=== PATIENT | female | born 1965 | race Caucasian/White ===

== ENCOUNTER 2016-08-13 18:30 | Emergency (ER) | payer OTHER ==
[~2016-08-13] VITALS: Ht 162.6 cm; Wt 104.8 kg
[~2016-08-13 18:30] MED LIST: ALBU1AER9 INH; CLX/20 PO; GABA800T PO; GABA800T2 PO; HMLI SC; HYDR-3983 PO; IBUP-1428 PO; INSDGI SC; IPRASOL4 INH; LEVO1TAB PO; OXGN; OXYC-409 PO; OXYC20TA50 PO; ROSU5TAB PO
[2016-08-13 18:35] VITALS: TEMP 36.8; Ht 162.6 cm; Wt 104.8 kg
--- NOTE | 2016-08-13 19:03 | EMERGENCY ROOM VISIT NOTE ---
History Report prepared by Annmarie: aTy Pittman Under the Supervision of: Dr. Cassius Schroeder M.D. First contact with patient: 18:46 Chief Complaint: ABDOMINAL PAIN Stated Complaint: ABD SWELLING History of Present Illness The patient is a 50 year old female who presents to the Emergency Room with complaints of persistent abdominal swelling for the past several weeks. She denies abdominal pain. The patient was seen at [place] [facility] yesterday where she had a CT scan. She was referred to the ED by her PCP. The patient's BSG has been running high recently. She has not been eating well. She denies urinary symptoms. Her bowels have been moving okay She is not on any blood thinners. The patient is s/p hysterectomy and herniorrhaphy. She has a nervous system stimulator implant. She has a history of incarcerated hernia. The patient takes Lantus. She is allergic to IV contrast. She is not a drinker. Source of History: patient, spouse/significant other Onset: several weeks ago Position: abdomen Quality: other (swelling) Timing: other (persistent) Associated Symptoms: No abdominal pain, No urinary symptoms Review of Systems See HPI for pertinent positives & negatives. A total of 10 systems reviewed and were otherwise negative. Past Medical & Surgical Medical Problems: (1) Benign essential hypertension (2) Chronic low back pain (3) Degenerative disc disease (4) Depression (5) Diabetes mellitus type 2 (6) Fibromyalgia (7) Gastroesophageal reflux disease (8) Hyperlipidemia (9) Hypothyroidism Old medical records were reviewed. Nurse's notes were reviewed and I agree with. Social History Smoking Status: Current Every Day Smoker Drug Use: none Marital Status: Housing Status: lives with family Occupation Status: employed Current/Historical Medications Scheduled Aspirin (Aspirin Ec), 81 MG PO DAILY Cholecalciferol (Vitamin D3), 1 TAB PO DAILY Citalopram (Citalopram Hydrobromide), 40 MG PO DAILYBD Clonidine HCl (Clonidine HCl), 0.1 MG PO BID Desloratadine (Desloratadine), 5 MG PO DAILY Dulaglutide (Trulicity), 1.5 MG SQ WK Fluticasone Propionate (Fluticasone Propionate), 2 SPRAYS RUBÉN DAILY Gabapentin (Gabapentin), 800 MG PO TID Hydrocodone/Acetaminophen ([place] 10/325 Tab), 1 TAB PO TID Insulin Glargine (Lantus Solostar), 52 UNITS SQ QPM Insulin Lispro (Humalog), UNITS SC AC Levothyroxine Sodium (Synthroid), 125 MCG PO DAILY Meloxicam (Meloxicam), 15 MG PO DAILY Metformin HCl (Metformin HCl ER), 500 MG PO TID Oxycodone HCl (Oxycodone HCl ER), 10 MG PO BID Oxycodone Hcl (Oxycontin), 20 MG PO Q8 Oxygen (Oxygen), 2 LITER NA PRN Oyster Shell (Calcium), 1 TAB PO BID [juice plus], 1 PKT PO DAILY Scheduled PRN Epinephrine (Epipen), 0.3 MG IM UD PRN Ipratropium-Albuterol (Duoneb), 1 TREATMENT INH QID PRN for SOB/Wheezing Ondansetron Hcl (Zofran), 4 MG PO Q8 PRN for Nausea Ranitidine HCl (Ranitidine HCl), 150 MG PO BID PRN for acid reflux [Proair Hfa], 2 PUFF INH QID PRN for SOB/Wheezing Allergies Coded Allergies: Shellfish (Verified Allergy, Severe, ANAPHYLAXIS, 08/13/16) Egg (Verified Allergy, Unknown, UNKNOWN, 10/31/13) Erythromycin (Unverified Allergy, Unknown, UNKNOWN, 10/31/13) Iodinated Contrast Media (Verified Allergy, Unknown, ., 10/31/13) Omeprazole (Unverified Allergy, Unknown, UNKNOWN, 10/31/13) Uncoded Allergies: PEANUT JABARI DUST (Allergy, Intermediate, LIPS SWELL, 08/13/16) Physical Exam Vital Signs Date Time Temp Pulse Resp B/P Pulse Ox O2 Delivery O2 Flow Rate FiO2 08/13/16 21:06 85 18 135/78 96 Room Air 08/13/16 18:35 36.8 105 20 161/101 96 Room Air Physical Exam General: Non ill-appearing middle aged female in no acute distress, breathing comfortably on room air. Normal speech HEENT: Normal cephalic atraumatic. Pupils are equal round and reactive to light. Sclerae anicteric. Extraocular movements are intact. Oropharynx is pink with moist mucous membranes. No swelling of the mouth lips or tongue. Neck: Supple with a midline trachea. No meningeal signs or stiffness, no JVD or bruits. No Stridor. Chest: Clear to auscultation bilaterally. No wheezes or rhonchi. No increased work of breathing. Heart: regular rate and rhythm. Abdomen: Nontender. Mild fullness over the liver with palpation. Ventral hernia with coughing, no redness warmth or tenderness. Lower abdominal scar from previous surgery. Extremities: No cyanosis clubbing or edema. No calf tenderness or assymetry Spine/Back. Non tender to palpation. No CVA tenderness Skin: Good turgor without rashes. Neurologic exam: Cranial nerves two through 12 are intact. Motor and sensation are intact and symmetrical throughout. Medical Decision & Procedures Laboratory Results 08/13/16 19:15 Red Blood Count 5.11, Mean Corpuscular Volume 88.3, Mean Corpuscular Hemoglobin 30.1, Mean Corpuscular Hemoglobin Concent 34.1, Mean Platelet Volume 12.2, Neutrophils (%) (Auto) 57.2, Lymphocytes (%) (Auto) 35.6, Monocytes (%) (Auto) 4.9, Eosinophils (%) (Auto) 1.9, Basophils (%) (Auto) 0.2, Neutrophils # (Auto) 6.15, Lymphocytes # (Auto) 3.82, Monocytes # (Auto) 0.53, Eosinophils # (Auto) 0.20, Basophils # (Auto) 0.02 08/13/16 19:15 Test 08/13/16 19:15 08/13/16 20:35 White Blood Count 10.74 K/uL (4.8-10.8) Red Blood Count 5.11 M/uL (4.2-5.4) Hemoglobin 15.4 g/dL (12.0-16.0) Hematocrit 45.1 % (37-47) Mean Corpuscular Volume 88.3 fL (80-100) Mean Corpuscular Hemoglobin 30.1 pg (25-34) Mean Corpuscular Hemoglobin Concent 34.1 g/dl (32-36) Platelet Count 200 K/uL (130-400) Mean Platelet Volume 12.2 fL (7.4-10.4) Neutrophils (%) (Auto) 57.2 % Lymphocytes (%) (Auto) 35.6 % Monocytes (%) (Auto) 4.9 % Eosinophils (%) (Auto) 1.9 % Basophils (%) (Auto) 0.2 % Neutrophils # (Auto) 6.15 K/uL (1.4-6.5) Lymphocytes # (Auto) 3.82 K/uL (1.2-3.4) Monocytes # (Auto) 0.53 K/uL (0.11-0.59) Eosinophils # (Auto) 0.20 K/uL (0-0.5) Basophils # (Auto) 0.02 K/uL (0-0.2) RDW Standard Deviation 44.1 fL (36.4-46.3) RDW Coefficient of Variation 13.5 % (11.5-14.5) Immature Granulocyte % (Auto) 0.2 % Immature Granulocyte # (Auto) 0.02 K/uL (0.00-0.02) Anion Gap 8.0 mmol/L (3-11) Est Creatinine Clear Calc Drug Dose 93.3 ml/min Estimated GFR () 91.3 Estimated GFR (Non- 78.8 BUN/Creatinine Ratio 12.5 (10-20) Calcium Level 8.9 mg/dl (8.5-10.1) Total Bilirubin 0.4 mg/dl (0.2-1) Direct Bilirubin 0.1 mg/dl (0-0.2) Aspartate Amino Transf (AST/SGOT) 31 U/L (15-37) Alanine Aminotransferase (ALT/SGPT) 53 U/L (12-78) Alkaline Phosphatase 116 U/L (45-117) Total Protein 7.9 gm/dl (6.4-8.2) Albumin 3.8 gm/dl (3.4-5.0) Lipase 317 U/L (73-393) Human Chorionic Gonadotropin, Qual NEG (NEG) Urine Color YELLOW Urine Appearance CLEAR (CLEAR) Urine pH 5.0 (4.5-7.5) Urine Specific [place] 1.036 (1.000-1.030) Urine Protein NEG (NEG) Urine Glucose (UA) 3+ (NEG) Urine Ketones TRACE (NEG) Urine Occult Blood NEG (NEG) Urine Nitrite NEG (NEG) Urine Bilirubin NEG (NEG) Urine Urobilinogen NEG (NEG) Urine Leukocyte Esterase NEG (NEG) Laboratory studies as stated above per my review. ECG Indication: chest pain Rate (beats per minute): 79 Rhythm: normal sinus Findings: no acute ischemic change, no ectopy Comparison ECG Date: 2013 Change: no significant change ED Course 1849: Past medical records reviewed. The patient was evaluated in room B4b, and a complete history and physical examination were performed. 2043: Discussed the case with Dr. Vuong, Gastroenterology. The patient can follow up as an outpatient. 2049: Updated the patient. 2054: The patient feels okay but now complains of heartburn. EKG will be obtained. 2119: Upon reevaluation, the patient is doing well. I discussed the results and treatment plan with her. She verbalized agreement of the treatment plan. The patient was discharged home. Medical Decision Differential diagnosis includes DKA, infection, electrolyte or metabolic abnormality, liver disease. Medication reconciliation: I have personally looked at the patient's medication list on the computer This patient comes in as described above. She feels like she's had abdominal bloating. She was seen yesterday and [facility] and had a CAT scan of her abdomen and it showed hepatomegaly with nodular surface the liver suggestive of fibrofatty process. They did recommend nonemergent MRI. The patient's doctor sent her to the hospital for MRI however she cannot have it because she has an neurostimulator. Is also noted that her blood sugar was up earlier at 577. She says she feels fine except for having some bloating and occasional abdominal pain. She's had no vomiting or fever or chills. On exam, she appears in no distress she does have some fullness in the right upper abdomen. There is no evidence of hernia incarceration. She has no fever or white count to suggest infection. She's has normal electrolytes. Her liver functions and lipase are normal. I do think she needs further workup but unfortunately can't have an MRI and can have a CAT scan with contrast that she is allergic to the dye. I did discuss the case with Dr. vuong, the on-call GI specialist and he feels she can follow-up with the [facility] GI team within the next several days for recheck and further reevaluation. At this point, the patient's blood sugar is minimally elevated in the 200s and she has no evidence of DKA. She feels good and like to go home she started having a little bit of heartburn as she did not eat and I checked an EKG was unremarkable. She feels good and would will be discharged to home. Consults Time Called: 2029 Consulting Physician: Dr. Vuong, Gastroenterology Returned Call: 2043 The patient can follow up as an outpatient. Impression Primary Impression: Epigastric abdominal pain Additional Impression: Hyperglycemia Scribe Attestation The scribe's documentation has been prepared under my direction and personally reviewed by me in its entirety. I confirm that the note above accurately reflects all work, treatment, procedures, and medical decision making performed by me. Departure Information Dispostion Home / Self-Care Referrals Irma Fry M.D. (PCP) Forms Call Back Authorization, HOME CARE DOCUMENTATION FORM, IMPORTANT VISIT INFORMATION Patient Instructions [facility] Additional Instructions Rest Drink plenty of fluids. Return if: Increasing pain, fever or chills, worsening symptoms, any new problems or concerns. You will need a follow-up with the [facility] GI doctor this week for recheck. You will need further work-up Check and monitor your blood sugar frequently and record it Problem Qualifiers
[2016-08-13 19:21] LABS: BASO % 0.2 %; BASO ABS # 0.02 K/uL (0-0.2); COMPLETE YES; EOS % 1.9 %; HEMATOCRIT 45.1 % (37-47); IG% 0.2 %; LYMPH % 35.6 %; LYMPH ABS # 3.82 K/uL (1.2-3.4); MEAN CELL VOLUME 88.3 fL (80-100); MEAN CORPUSCULAR HEMOGLOBIN 30.1 pg (25-34); MEAN CORPUSCULAR HGB CONC 34.1 g/dl (32-36); MEAN PLATELET VOLUME 12.2 fL (7.4-10.4); MONO % 4.9 %; NEUT % 57.2 %; PLATELET COUNT 200 K/uL (130-400); RED BLOOD COUNT 5.11 M/uL (4.2-5.4); WHITE BLOOD COUNT 10.74 K/uL (4.8-10.8)
[2016-08-13 19:44] LABS: BUN/CREATININE RATIO 12.5 (10-20); CALCIUM 8.9 mg/dl (8.5-10.1); CREATININE 0.87 mg/dl (0.60-1.20); POTASSIUM 3.7 mmol/L (3.5-5.1)
[2016-08-13 19:48] LABS: PREG INTERNAL NEGATIVE QC NEG CLEAR BACKGROUND; PREG INTERNAL POSITIVE QC POS CONTROL LINE
[2016-08-13] MEDS ORDERED: FLNIN/ NAE (20:01)
[2016-08-13] MEDS ORDERED: CTP1 PO (20:01)
[2016-08-13] MEDS ORDERED: TRAZ-120 (20:01)
[2016-08-13] MEDS ORDERED: PROAIR HFA INH (20:20)
[2016-08-13] MEDS ORDERED: GLCSR/500 PO (20:20)
[2016-08-13] MEDS ORDERED: SYN125 PO (20:20)
[2016-08-13] MEDS ORDERED: DULA0.5I SQ (20:20)
[2016-08-13] MEDS ORDERED: MELO15TA4 PO (20:20)
[2016-08-13] MEDS ORDERED: IPRASOL4 INH (20:20)
[2016-08-13] MEDS ORDERED: ASPI81TA28 PO (20:20)
[2016-08-13] MEDS ORDERED: SPRIN/30 INH (20:27)
[2016-08-13] MEDS ORDERED: MISCCAP80 PO (20:27)
[2016-08-13] MEDS ORDERED: CHOL20007 PO (20:27)
[2016-08-13 20:47] LABS: URINE APPEARANCE CLEAR (CLEAR); URINE BILIRUBIN NEG (NEG); URINE COLOR YELLOW; URINE NITRITE NEG (NEG); URINE SPECIFIC GRAVITY 1.036 (1.000-1.030); UROBILINOGEN NEG (NEG)
[2016-08-13 20:48] LABS: MANUAL MICROSCOPIC REQUIRED? NO; REVIEW REQ? NO
[2016-08-13 21:06] VITALS: BP 135/78; PULSE 85; O2SAT 96
[2016-10-27] MEDS ORDERED: SUCR1TAB29 PO (15:15)
[2016-10-27] MEDS ORDERED: INSU100I SC (15:15)
[2016-10-30] MEDS ORDERED: ASPEC81 PO (17:38)
[2016-12-10] MEDS ORDERED: juice plus PO (03:16)
[2016-12-10] MEDS ORDERED: ALBU18002 INH (10:12)
[2016-12-10] MEDS ORDERED: POTA10CA28 PO (10:12)
[2016-12-10] MEDS ORDERED: SPRIN/30 INH (15:17)
[2016-12-10] MEDS ORDERED: ROSU5TAB PO (15:17)
[2016-12-10] MEDS ORDERED: EPP3/2 IM (17:13)
[2016-12-10] MEDS ORDERED: OXYC-738 PO (20:01)
== END 2016-08-13 21:32 | disposition home or self-care (01) ==
LOC: C.EDB 18:31
DX: R10.13 Epigastric pain (principal); E11.65 Type 2 diabetes mellitus with hyperglycemia; I10 Essential (primary) hypertension; E78.5 Hyperlipidemia, unspecified; E03.9 Hypothyroidism, unspecified; K21.9 Gastro-esophageal reflux disease without esophagitis; G89.29 Other chronic pain; F17.200 Nicotine dependence, unspecified, uncomplicated; Z79.82 Long term (current) use of aspirin; Z79.4 Long term (current) use of insulin; Z79.899 Other long term (current) drug therapy; Z91.018 Allergy to other foods; Z88.8 Allergy status to other drugs, medicaments and biological substances; Z91.041 Radiographic dye allergy status

== ENCOUNTER 2016-09-05 06:19 | Day surgery (SDC) | payer OTHER ==
[2016-08-20 10:12] VITALS: BMI 40.0
[~2016-09-05] VITALS: Ht 162.6 cm; Wt 105.0 kg
[~2016-09-05 06:19] MED LIST changes: -ALBU1AER9 INH; +ASPI81TA28 PO; +CHOL20007 PO; -CLX/20 PO; +DULA0.5I SQ; +FLNIN/ NAE; -GABA800T PO; -GABA800T2 PO; +GLCSR/500 PO; -HMLI SC; -HYDR-3983 PO; -IBUP-1428 PO; -INSDGI SC; +LACTATED RINGER'S 1000ML 1,000 ML IV SCH; -LEVO1TAB PO; +MELO15TA4 PO; -OXYC-409 PO; -OXYC20TA50 PO; -ROSU5TAB PO; +SODIUM CHLORIDE 0.9% 500ML 500 ML IV ONE; +SYN125 PO
[2016-09-05] MEDS ORDERED: LEVO150T9 PO (06:59)
[2016-09-05 07:03] VITALS: BP 140/82; PULSE 74; TEMP 36.7; O2SAT 96; Ht 162.6 cm; Wt 105.0 kg
[2016-09-05] MEDS ORDERED: Humalog SC (07:03)
[2016-09-05] MEDS ORDERED: HMLI7525 SC (07:20)
[2016-09-05] MEDS ORDERED: FENTANYL CITRATE INJ 50 MCG/1 ML 2 ML VIAL ONE (07:21)
[2016-09-05] MEDS ORDERED: MIDAZOLAM HCL 1 MG/ML 2ML VIAL ONE (07:21)
[2016-09-05] MEDS ORDERED: KETAMINE HCL INJ 50 MG/ML 10 ML VIAL ONE (07:43)
[2016-09-05] MEDS ORDERED: PROPOFOL IV EMULSION 10 MG/ML 20 ML VIAL IV ONE ×2 (07:44→08:36)
--- NOTE | 2016-09-05 07:44 | Progress Note ---
Progress Note Date of Service Sep 05, 2016. Progress Note [facility] [address] [place] [address] Endoscopy History & Physical Patient Name: Socrates Judd Unit Number: [id number] Date of : 1965 Patient Status: Registered Surgical Day Care Attending Doctor: Arjun Martinez MD History & Physical - GI History & Physical Date of Service: Sep 05, 2016. Chief Complaint: Referring Physician: History of Present Illness Socrates Judd is a 50 year old female who went to [facility] ED on 08/12/16 w c/o acute abdominal distension. Labs unremarkable mildly elevated transaminases <50 ALT/AST, UA, UPT all normal. She had KUB which showed moderate amt of stool burden. CT abd/pelvis w/o contrast w showed: LIVER: Mild hepatomegaly. Diffuse heterogeneous attenuation of the liver with subtle nodular surface, which is likely due to cirrhosis and fibrofatty process. Difficult to exclude other infiltrative process and recommend MRI abdomen without and with intravenous contrast for further evaluation. Mildly enlarged cardiophrenic lymph nodes are likely reactive to liver process. BILE DUCTS: No intra or extrahepatic biliary duct dilatation. GALLBLADDER: Cholecystectomy. PANCREAS: Mild lipomatosis of head of the pancreas. No calcification or pancreatic duct dilatation. SPLEEN: Normal size spleen. Small splenule. No gross focal lesion. ADRENALS: Unremarkable. KIDNEYS/URETERS: Unremarkable. BLADDER: Nondistended bladder limiting evaluation. BOWEL: Unremarkable stomach, duodenum and small bowel. Appendectomy. Moderate retained colonic stools. LYMPH NODES: Enlarged portacaval and periportal lymph nodes likely reactive. VESSELS: Circumaortic left renal vein. Minimal atherosclerotic calcifications are noted within the infrarenal abdominal aorta. REPRODUCTIVE ORGANS: Hysterectomy. No adnexal mass. PERITONEUM/RETROPERITONEUM: No ascites or pneumoperitoneum. ABDOMINAL WALL/SOFT TISSUES: Mesh is noted on the inner aspect of the right anterior and mid abdominal wall consistent with prior hernia repair. Diastases of the rectus with protrusion of the mesh. No recurrent ventral hernia. BONES: Minimal lumbar scoliosis. Left L4 laminectomy. Degenerative changes of spine. Multilevel degenerative disc disease. Advanced degenerative disc disease at L3-L4, L4-L5 and L5-S1. Moderate posterior disc osteophyte complex, prominent at the L5-S1 level causing mild to moderate spinal canal stenosis. Presenting for EGD/EUS for further work up, she does have a family history of pancreatic cancer in her mother. Results for SOCRATES JUDD ( ) as of 09/04/2016 15:32 Ref. Range 08/20/2016 14:50 BUN Latest Ref Range: 6 - 20 mg/dL 11 CREATININE Latest Ref Range: 0.5 - 1.0 mg/dL 0.7 E GLOM FILT RATE Latest Ref Range: >60 >60.0 SODIUM Latest Ref Range: 135 - 146 mmol/L 137 POTASSIUM Latest Ref Range: 3.5 - 5.1 mmol/L 4.6 CHLORIDE Latest Ref Range: 98 - 107 mmol/L 95 (L) CO2 Latest Ref Range: 22 - 32 mmol/L 26 GLUCOSE Latest Ref Range: 70 - 120 mg/dL 306 (H) CALCIUM Latest Ref Range: 8.4 - 10.2 mg/dL 9.6 ANION GAP Latest Ref Range: 7 - 15 mmol/L 16 (H) ALBUMIN Latest Ref Range: 3.8 - 5.0 g/dL 4.3 ALKALINE PHOSPHATASE Latest Ref Range: 0 - 153 U/L 106 ALT Latest Ref Range: 10 - 35 U/L 37 (H) AST Latest Ref Range: 10 - 35 U/L 41 (H) BILIRUBIN Latest Ref Range: 0 - 1.2 mg/dL 0.6 Past Surgical History Hx Abdominal Surgery: No (LAP CHOLEY, OPEN APPENDECTOMY, COMPLETE HYSTERECTOMY) Hx Post-Op Nausea and Vomiting: No Hx Cancer Surgery: Yes (B/L BREAST LUMPECTOMY (BENIGN)) Hx Thoracic Surgery: No Hx Orthopedic: Yes (BACK SURGERY X2) Hx Urinary Tract Surgery: No Social History Smoking Status: Current Every Day Smoker Hx Substance Use: No Hx Alcohol Use: No Allergies Coded Allergies: Shellfish (Verified Allergy, Severe, ANAPHYLAXIS, 09/05/16) Iodinated Contrast Media (Verified Allergy, Unknown, ANAPHYLAXIS, 09/05/16) Omeprazole (Verified Allergy, Unknown, ANAPHYLAXIS, 09/05/16) Peanut (Verified Allergy, Unknown, LIPS SWELL FROM PEANUT SHELL DUST, ) Egg (Verified Adverse Reaction, Mild, DYSPEPSIA, N/V, 09/05/16) Erythromycin (Verified Adverse Reaction, Unknown, GI UPSET, 09/05/16) Current Medications Reported Home Medications Medications Dose Route/Sig Max Daily Dose Days Date Category Dose Instructions Proair Respiclick (Albuterol Sulfate) 108 Mcg/Act Aer 2 Puff INH Q4 PRN 08/20/16 Reported Micro-K Ext Rel (Potassium Chloride) 10 Meq Capcr 10 Meq PO DAILY 08/20/16 Reported Zofran (Ondansetron HCl) 4 Mg Tab 4 Mg PO Q8 PRN 08/13/16 Reported Calcium (Oyster Shell) 500 Mg Tab 1 Tab PO BID 08/13/16 Reported Vitamin D3 (Cholecalciferol) 2,000 Unit Tab 1 Tab PO DAILY 90 08/13/16 Reported Citalopram Hydrobromide (Citalopram) 40 Mg Tab 40 Mg PO DAILYBD 08/13/16 Reported Duoneb (Ipratropium-Albuterol) 3 Ml Nebu 1 Treatment INH QID PRN 08/13/16 Reported Metformin HCl ER (Metformin HCl) 500 Mg Tabcr 500 Mg PO TID 08/13/16 Reported Gabapentin 800 Mg Tab 800 Mg PO TID 08/13/16 Reported Meloxicam 15 Mg Tab 15 Mg PO DAILY 08/13/16 Reported Trulicity (Dulaglutide) 1.5 Mg/0.5 Ml Inj 1.5 Mg SQ WK 08/13/16 Reported Lantus Solostar (Insulin Glargine) 100 Unit/Ml Inj 52 Units SQ QPM 08/13/16 Reported Synthroid (Levothyroxine Sodium) 125 Mcg Tab 125 Mcg PO DAILY 08/13/16 Reported CAN ONLY TAKE SYNTHRIOD [place] 10/325 Tab (Acetaminophen/Hydrocodone Bitart) 1 Tab Tab 1 Tab PO TID 08/13/16 Reported Aspirin Ec (Aspirin) 81 Mg Tab 81 Mg PO DAILY 08/13/16 Reported Ranitidine HCl 150 Mg Tab 150 Mg PO BID PRN 08/13/16 Reported Desloratadine 5 Mg Tab 5 Mg PO DAILY 08/13/16 Reported Fluticasone Propionate 120 Sprays/6000 Mcg Inha 2 Sprays RUBÉN DAILY 08/13/16 Reported Oxycodone HCl ER (Oxycodone HCl) 10 Mg Tab 10 Mg PO BID 08/13/16 Reported [juice plus] 1 Pkt PO DAILY 10/31/13 Reported orchard + garden blends Oxygen Gas 2 Liter NA PRN 10/31/13 Reported use during all periods of sleep Epipen (Epinephrine) 0.3 Mg/0.3 Ml Inj 0.3 Mg IM UD PRN 10/25/12 Reported INJECT INTO THIGH NEEDED FOR SEVERE ALLERGIC REACTION. Vital Signs Weight (Kilograms): 105 Height (Feet): 5 Height (Inches): 4 Physical Exam General Appearance: WD/WN, + obese Respiratory/Chest: Respiratory effort: no dyspnea Auscultation: breath sounds normal Cardiovascular: Apical Impulse: not displaced Heart Auscultation: RRR, normal S1, normal S2 Abdomen: Bowel Sounds: normal Inspection & Palpation: soft, non-distended Assessment and Plan Plan for EGD/EUS ? pancreatic abnormalities including family history of pancreatic cancer
[2016-09-05] MEDS ORDERED: ATROPINE SULFATE 0.1 MG/ML 5ML SYR IV PRN (07:45)
[2016-09-05] MEDS ORDERED: LABETALOL HCL IV 5 MG/ML 20ML IV PRN (07:45)
[2016-09-05] MEDS ORDERED: ONDANSETRON INJ 2 MG/ML 2 ML VIAL IV PRN (07:45)
[2016-09-05] MEDS ORDERED: FENTANYL CITRATE INJ 50 MCG/1 ML 2 ML VIAL IV PRN (07:45)
[2016-09-05] MEDS ORDERED: ONDANSETRON INJ 2 MG/ML 2 ML VIAL ONE (08:38)
--- NOTE | 2016-09-05 08:44 | GI REPORT ---
Procedure Date: 09/05/2016 7:58 AM Procedure: Upper GI endoscopy Indications: Epigastric abdominal pain Medicines: General [id number] Complications: No immediate complications. Estimated blood loss: None. Estimated Blood Loss: Estimated blood loss: none. Procedure: Pre-Anesthesia Assessment: - Pre-Anesthesia Assessment: - Prior to the procedure, a History and Physical was performed, and patient medications, allergies and sensitivities were reviewed. The patient's tolerance of previous anesthesia was reviewed. Please see [employer] for complete details. - The risks and benefits of the procedure and the sedation options and risks were discussed with the patient. All questions were answered and informed consent was obtained. - Patient identification and proposed procedure were verified prior to the procedure by the physician and the nurse. The procedure was verified in the pre-procedure area in the procedure room. After obtaining informed consent, the endoscope was passed carefully and meticuously under direct vision and only advanced when the lumen was clearly identified, C02 insuflation was utilized throughout the entirity of the procedure. Throughout the procedure, the patient's blood pressure, pulse, and oxygen saturations were monitored continuously. After obtaining informed consent, the endoscope was passed under direct vision. Throughout the procedure, the patient's blood pressure, pulse, and oxygen saturations were monitored continuously. The scope was introduced through the mouth, and advanced to the third part of duodenum. The upper GI endoscopy was accomplished without difficulty. The patient tolerated the procedure well. Findings: The examined esophagus was normal. One non-bleeding superficial gastric ulcer with a clean ulcer base (Bubba Class III) was found in the gastric antrum. The lesion was 1 mm in largest dimension. Biopsies were taken with a cold forceps for Helicobacter pylori testing. Two non-bleeding linear duodenal ulcers with a clean ulcer base (Bubba Class III) were found in the duodenal bulb. Biopsies were taken with a cold forceps for histology. Impression: - Normal esophagus. - Non-bleeding gastric ulcer with a clean ulcer base (Bubba Class III). Biopsied. - Multiple non-bleeding duodenal ulcers with a clean ulcer base (Bubba Class III). Biopsied. Recommendation: - Discharge patient to home (with escort). - Return to referring physician as previously scheduled. - Use Prilosec (omeprazole) 40 mg PO BID for 2 months. - Repeat the upper endoscopy in 2 months to check healing. Arjun Martinez MD 09/05/2016 8:42:51 AM This report has been signed electronically. Note Initiated On: 09/05/2016 7:58 AM I attest to the content of the Intraoperative Record and orders documented therein, exceptions below
[2016-09-05 08:45] VITALS: BP 105/55; PULSE 79; TEMP 36.5; O2SAT 94
--- NOTE | 2016-09-05 08:47 | GI REPORT ---
Procedure Date: 09/05/2016 8:14 AM Procedure: Upper EUS Indications: Epigastric abdominal pain, family history of pancreatic cancer Medicines: General Anesthesia Complications: No immediate complications. Estimated blood loss: None. Estimated Blood Loss: Estimated blood loss: none. Procedure: Pre-Anesthesia Assessment: - Pre-Anesthesia Assessment: - Prior to the procedure, a History and Physical was performed, and patient medications, allergies and sensitivities were reviewed. The patient's tolerance of previous anesthesia was reviewed. Please see [employer] for complete details. - The risks and benefits of the procedure and the sedation options and risks were discussed with the patient. All questions were answered and informed consent was obtained. - Patient identification and proposed procedure were verified prior to the procedure by the physician and the nurse. The procedure was verified in the pre-procedure area in the procedure room. After obtaining informed consent, the endoscope was passed carefully and meticuously under direct vision and only advanced when the lumen was clearly identified, C02 insuflation was utilized throughout the entirity of the procedure. Throughout the procedure, the patient's blood pressure, pulse, and oxygen saturations were monitored continuously. After obtaining informed consent, the endoscope was passed under direct vision. Throughout the procedure, the patient's blood pressure, pulse, and oxygen saturations were monitored continuously. The Endosonoscope was introduced through the mouth, and advanced to the second part of duodenum. The upper EUS was accomplished without difficulty. The patient tolerated the procedure well. Findings: Endosonographic Finding : Pancreatic parenchymal abnormalities were noted in the entire pancreas. These consisted of diffuse echogenicity. consistent with fatty infiltration There was no sign of significant endosonographic abnormality in the common bile duct. The maximum diameter of the duct was 4 mm. No pathologic lymphadenopathy, no masses, no cysts, no calcifications, no stones, no biliary sludge, ducts of normal caliber and ducts with regular contour were identified. The gallbladder was surgically absent consistent with history of cholecystectomy. There was no sign of significant endosonographic abnormality in the ampulla. There was abnormal echogenicity in the entire examined liver. This area was hyperechoic. One benign-appearing lymph node was visualized in the gastrohepatic ligament (level 18). It measured 5 mm by 6 mm in maximal cross-sectional diameter. The node was oval, had hyperechoic foci and had poorly defined margins. There was no sign of significant endosonographic abnormality in the entire examined left adrenal gland. There was no sign of significant endosonographic abnormality involving the celiac trunk. Impression: - Pancreatic parenchymal abnormalities consisting of diffuse echogenicity were noted in the entire pancreas. - There was no sign of significant pathology in the common bile duct. - There was no sign of significant pathology in the ampulla. - There was abnormal echogenicity in the entire examined liver. This was hyperechoic. Tissue has not been obtained. However, the endosonographic appearance is consistent with fatty infiltration. - One benign lymph node was visualized in the gastrohepatic ligament (level 18). The diagnosis is benign inflammatory changes. - Endosonographic images of the left adrenal gland were unremarkable. - The celiac trunk was endosonographically normal. - No specimens collected. Recommendation: - Discharge patient to home (with escort). - Return to referring physician as previously scheduled. Arjun Martinez MD 09/05/2016 8:47:01 AM This report has been signed electronically. Note Initiated On: 09/05/2016 8:14 AM I attest to the content of the Intraoperative Record and orders documented therein, exceptions below
--- NOTE | 2016-09-05 08:49 | Discharge Instructions ---
Endoscopy Patient Instructions Date / Procedure(s) Performed Sep 05, 2016. EGD, Other (endoscopic ultrasound) Allergy Information Coded Allergies: Shellfish (Verified Allergy, Severe, ANAPHYLAXIS, 09/05/16) Iodinated Contrast Media (Verified Allergy, Unknown, ANAPHYLAXIS, 09/05/16) Omeprazole (Verified Allergy, Unknown, ANAPHYLAXIS, 09/05/16) Peanut (Verified Allergy, Unknown, LIPS SWELL FROM PEANUT SHELL DUST, ) Egg (Verified Adverse Reaction, Mild, DYSPEPSIA, N/V, 09/05/16) Erythromycin (Verified Adverse Reaction, Unknown, GI UPSET, 09/05/16) Discharge Date / Findings Sep 05, 2016. Multiple ulcers Pancreas normal Fatty liver Provider Instructions Activity Restrictions - No exercising or heavy lifting for 24 hours. - Do not drink alcohol the day of the procedure. - Do not drive a car or operate machinery until the day after the procedure. - Do not make any important decisions or sign important papers in 24 hours after the procedure. Following Day: - Return to full activity which may include returning to work/school. Diet Start your diet with liquids and light foods (jello, soup, juice, toast). Then eat your usual diet if not nauseated. Treatment For Common After Affects For mild abdominal pain, bloating, or excessive gas: - Rest - Eat lightly - Lie on right side Follow-Up Information Follow-up with as scheduled Anesthesia Information What You Should Know You have had a procedure that required some medicine to reduce anxiety and discomfort. This treatment is called moderate sedation. After receiving the treatment, you may be sleepy, but you will be able to breathe on your own. The effects of the treatment may last for several hours. Follow these instructions along with Activity/Diet recommendations noted above: * Do NOT do anything where dizziness or clumsiness would be dangerous. * Rest quietly at home today, then you can be up and about tomorrow. * Have a responsible person stay with you the rest of today. * You may have had an I.V. today. If so, you may take the dressing off later today. Recommendations Call your doctor if: * Trouble breathing * Continuous vomiting for more than 24 hours * Temperature above 101 degrees * Severe abdominal pain or bloating * Pain not relieved by pain medicine ordered * There is increased drainage or redness from any incision * A large amount of rectal bleeding greater than 2-3 tablespoons. (If you had a polyp/s removed or have hemorrhoids, a small amount of blood - from the rectum is to be expected.) * You have any unanswered questions or concerns. IN THE EVENT OF A SERIOUS EMERGENCY, GO TO THE NEAREST EMERGENCY ROOM Your discharge instructions were prepared by provider Arjun Martinez. Patient Instructions Signature Page Arely Hester Patient (or Guardian) Signature/Date: I have read and understand the instructions given to me by my caregivers. Caregiver/RN/Doctor Signature/Date: The above-named patient and/or guardian has received patient instructions on this date. + Original Patient Signature Page (only) stays with chart. Please make copy for patient.
[2016-09-05 09:15] VITALS: BP 116/68; PULSE 80; TEMP 36.5; O2SAT 97
[2016-09-05 09:30] VITALS: BP 134/74; PULSE 77; TEMP 36.2; O2SAT 97
--- NOTE | 2016-09-05 10:55 | Anesthesiology Progress Note ---
Anesthesia Post Op Note Date & Time Sep 05, 2016 at 10:56 Vital Signs Pain Intensity: 0 Vital Signs Past 12 Hours Date Time Temp Pulse Resp B/P (MAP) Pulse Ox O2 Delivery O2 Flow Rate FiO2 09/05/16 09:30 36.2 77 18 134/74 97 Room Air 09/05/16 09:15 36.5 80 18 116/68 97 Room Air 09/05/16 08:45 36.5 79 18 105/55 94 Room Air 09/05/16 07:03 36.7 74 16 140/82 (101) 96 Room Air Notes Mental Status: alert / awake / arousable, participated in evaluation Pt Amnestic to Procedure: Yes Nausea / Vomiting: adequately controlled Pain: adequately controlled Airway Patency, RR, SpO2: stable & adequate BP & HR: stable & adequate Hydration State: stable & adequate Anesthetic Complications: no major complications apparent
[2016-10-27] MEDS ORDERED: INSU100I SC (15:15)
[2016-10-27] MEDS ORDERED: SUCR1TAB29 PO (15:15)
[2016-10-30] MEDS ORDERED: ASPEC81 PO (17:38)
[2016-12-10] MEDS ORDERED: juice plus PO (03:16)
[2016-12-10] MEDS ORDERED: ALBU18002 INH (10:12)
[2016-12-10] MEDS ORDERED: POTA10CA28 PO (10:12)
[2016-12-10] MEDS ORDERED: SPRIN/30 INH (15:17)
[2016-12-10] MEDS ORDERED: ROSU5TAB PO (15:17)
[2016-12-10] MEDS ORDERED: EPP3/2 IM (17:13)
[2016-12-10] MEDS ORDERED: OXYC-738 PO (20:01)
== END 2016-09-05 09:37 | disposition home or self-care (01) ==
LOC: C.ACU 06:19
PROVIDERS: ATTEND Internal Medicine
DX: R10.13 Epigastric pain (principal); K25.9 Gastric ulcer, unspecified as acute or chronic, without hemorrhage or perforation; K26.9 Duodenal ulcer, unspecified as acute or chronic, without hemorrhage or perforation; K29.80 Duodenitis without bleeding; F17.200 Nicotine dependence, unspecified, uncomplicated; Z79.82 Long term (current) use of aspirin; Z79.4 Long term (current) use of insulin; Z79.899 Other long term (current) drug therapy; Z85.07 Personal history of malignant neoplasm of pancreas

== ENCOUNTER 2016-10-28 19:47 | Observation (INO) | payer OTHER ==
[~2016-10-28] VITALS: Ht 162.6 cm; Wt 107.6 kg
[~2016-10-28 19:47] MED LIST changes: -ASPI81TA28 PO; -DULA0.5I SQ; +INSU100I SC; -LACTATED RINGER'S 1000ML 1,000 ML IV SCH; +LEVO150T9 PO; -MELO15TA4 PO; -SODIUM CHLORIDE 0.9% 500ML 500 ML IV ONE; +SUCR1TAB29 PO; -SYN125 PO
[2016-10-28] MEDS ORDERED: SODIUM CHLORIDE 0.9% 1000ML 1,000 ML IV STA (20:01)
[2016-10-28 20:17] LABS: BASO % 0.2 %; BASO ABS # 0.02 K/uL (0-0.2); COMPLETE YES; EOS % 0.8 %; HEMATOCRIT 45.4 % (37-47); IG% 0.2 %; LYMPH ABS # 3.34 K/uL (1.2-3.4); MEAN CORPUSCULAR HEMOGLOBIN 30.8 pg (25-34); MEAN PLATELET VOLUME 12.2 fL (7.4-10.4); MONO % 4.5 %; NEUT % 63.3 %; PLATELET COUNT 214 K/uL (130-400); RED BLOOD COUNT 5.16 M/uL (4.2-5.4); WHITE BLOOD COUNT 10.76 K/uL (4.8-10.8)
--- NOTE | 2016-10-28 20:23 | DIAGNOSTIC IMAGING REPORT ---
HEAD WITHOUT CONTRAST (CT) CLINICAL HISTORY: 50 years-old Female presenting with EVALUATE WEAKNESS. TECHNIQUE: Multidetector CT imaging of the head was performed without the use of intravenous contrast. IV contrast: None. A dose lowering technique was used consistent with the principles of ALARA (as low as reasonably achievable). COMPARISON: 10/31/2013. CT DOSE (mGy.cm): The estimated cumulative dose is 720.95 mGycm. 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 Ventricles and sulci normal in size. Minimal hyperdense focus in the right basal ganglia, nonspecific and likely calcification. Remainder brain parenchyma normal. No mass effect or midline shift. No hemorrhage or acute territorial infarct. No extra-axial fluid collection. Paranasal sinuses and mastoid air cells clear. Calvarium intact. IMPRESSION: 1. No acute intracranial pathology. Electronically signed by: Abner Gentile M.D. 10/28/2016 8:22 PM Dictated Date/Time: 10/28/2016 8:18 PM
[2016-10-28 20:36] LABS: PROTHROMBIN TIME (PATIENT) 10.7 SECONDS (9.0-12.0)
[2016-10-28 20:38] LABS: ALT/SGPT 44 U/L (12-78); BLOOD UREA NITROGEN 8 mg/dl (7-18); BUN/CREATININE RATIO 7.7 (10-20); CALCIUM 9.7 mg/dl (8.5-10.1); CARBON DIOXIDE 29 mmol/L (21-32); CHLORIDE 102 mmol/L (98-107); CREATININE 0.97 mg/dl (0.60-1.20); GLUCOSE 281 mg/dl (70-99); MAGNESIUM 1.9 mg/dl (1.8-2.4); POTASSIUM 3.4 mmol/L (3.5-5.1); SODIUM 138 mmol/L (136-145)
--- NOTE | 2016-10-28 20:43 | DIAGNOSTIC IMAGING REPORT ---
CHEST ONE VIEW PORTABLE CLINICAL HISTORY: 50 years-old Female presenting with EVALUATE WEAKNESS. TECHNIQUE: Portable upright AP view of the chest was obtained. COMPARISON: 10/25/2012. FINDINGS: Spinal stimulator projects over the lower thoracic spine. Cardiomediastinal silhouette normal. Lungs and pleural spaces clear. Osseous structures and upper abdomen normal. IMPRESSION: 1. No acute cardiopulmonary disease. Electronically signed by: Abner Gentile M.D. 10/28/2016 8:41 PM Dictated Date/Time: 10/28/2016 8:40 PM
[2016-10-28 20:47] LABS: ALKALINE PHOSPHATASE 109 U/L (45-117); AST/SGOT 37 U/L (15-37)
[2016-10-28 21:23] LABS: URINE APPEARANCE CLEAR (CLEAR); URINE BILIRUBIN NEG (NEG); URINE COLOR YELLOW; URINE NITRITE NEG (NEG); URINE SPECIFIC GRAVITY 1.014 (1.000-1.030); UROBILINOGEN NEG (NEG)
[2016-10-28 21:37] LABS: MANUAL MICROSCOPIC REQUIRED? NO; REVIEW REQ? NO
[2016-10-28] MEDS ORDERED: ASPIRIN 81 MG CHEW PO STA (21:39)
[2016-10-28] MEDS ORDERED: POTASSIUM CHLORIDE 10 MEQ TABCR PO STA (22:28)
[2016-10-28] MEDS ORDERED: MoRPHine SULFATE 4 MG/ML 1 ML CARP\\VIAL IV STA (22:32)
[2016-10-28] MEDS ORDERED: PROMETHAZINE HCL INJ 25 MG in SODIUM CHLORIDE 0.9% 50ML 50 ML IV STA (22:32)
--- NOTE | 2016-10-28 23:20 | EMERGENCY ROOM VISIT NOTE ---
History Report prepared by Annmarie: Agusto Rosales Under the Supervision of: Dr. Liban Barnes M.D. First contact with patient: 19:56 Chief Complaint: ALLERGIC REACTION Stated Complaint: ALLERGIC REACTION History of Present Illness The patient is a 50 year old female who presents to the Emergency Room with complaints of illness that began around 8 hours ago. She states that her "head is messed up." The patient's symptoms began with her eyes not being able to see correctly. She then began to shake. She thought her sugars were off, but they were not. She then began to stutter in her speech. Next, she began to feel a burning neck pain with some head pain. Also, she is having burning pain to her upper abdomen as well. She is having trouble swallowing correctly. 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 Pt denies LOC, fevers, chills, diaphoresis, visual changes, chest pain, breathing difficulties, nausea, vomiting, back pain, melena, hematochezia, urinary symptoms, numbness, weakness, lymphadenopathy, rash, or other complaints. She was started on Carafate 1 month ago. Source of History: patient Onset: 8 hours ago Position: other (global) Symptom Intensity: moderate Quality: other (Illness) Timing: constant Associated Symptoms: + headache, + neck pain, + abdominal pain Note: She is stuttering. Review of Systems See HPI for pertinent positives and negatives. A total of ten systems were reviewed and were otherwise negative. Past Medical & Surgical Medical Problems: (1) Benign essential hypertension (2) Chronic low back pain (3) Degenerative disc disease (4) Depression (5) Diabetes mellitus type 2 (6) Fibromyalgia (7) Gastroesophageal reflux disease (8) Hyperlipidemia (9) Hypothyroidism (10) TIA (transient ischemic attack) Family History FHx: cancer Social History Smoking Status: Current Every Day Smoker Drug Use: none Marital Status: Housing Status: lives with family Occupation Status: employed Current/Historical Medications Scheduled Cholecalciferol (Vitamin D3), 1 TAB PO QPM Citalopram (Citalopram Hydrobromide), 40 MG PO QAM Desloratadine (Desloratadine), 5 MG PO QAM Fluticasone Propionate (Fluticasone Propionate), 2 SPRAYS RUBÉN QPM Gabapentin (Gabapentin), 800 MG PO TID Home O2 Therapy (Oxygen), 2 LITER NA PRN Hydrocodone/Acetaminophen ([place] 10/325 Tab), 1 TAB PO TID Insulin Glargine (Lantus Solostar), 75 UNITS SQ QPM Insulin Lispro (Human) (Humalog), 55 UNITS SC TID-QID Levothyroxine Sodium (Levothyroxine Sodium), 1 TAB PO QAM Oxycodone HCl (Oxycodone HCl ER), 10 MG PO QPM Oyster Shell (Calcium), 1 TAB PO QPM Rosuvastatin Calcium (Crestor), 5 MG PO QAM Sucralfate (Carafate), 1 GM PO TID [juice plus], 1 PKT PO DAILY Scheduled PRN Albuterol Sulfate (Proair Respiclick), 2 PUFF INH Q4 PRN for SOB/Wheezing Epinephrine (Epipen), 0.3 MG IM UD PRN Ipratropium-Albuterol (Duoneb), 1 TREATMENT INH QID PRN for SOB/Wheezing Ondansetron Hcl (Zofran), 4 MG PO Q8 PRN for Nausea Potassium Chloride (Micro-K Ext Rel), 10 MEQ PO DAILY PRN for Muscle Spasms Ranitidine HCl (Ranitidine HCl), 150 MG PO BID PRN for Indigestion Tiotropium [place] (Spiriva Handihaler), 1 CAP INH DAILY PRN for Shortness of Breath Allergies Coded Allergies: Shellfish (Verified Allergy, Severe, ANAPHYLAXIS, 10/28/16) Iodinated Contrast Media (Verified Allergy, Unknown, ANAPHYLAXIS, 10/28/16) Omeprazole (Verified Allergy, Unknown, ANAPHYLAXIS, 10/28/16) Peanut (Verified Allergy, Unknown, LIPS SWELL FROM PEANUT SHELL DUST, ) Egg (Verified Adverse Reaction, Mild, DYSPEPSIA, N/V, 10/28/16) Erythromycin (Verified Adverse Reaction, Unknown, GI UPSET, 10/28/16) Physical Exam Vital Signs Date Time Temp Pulse Resp B/P (MAP) Pulse Ox O2 Delivery O2 Flow Rate FiO2 10/28/16 22:33 80 18 150/96 98 Room Air 10/28/16 21:14 94 10/28/16 21:07 96 Room Air 10/28/16 20:12 37.3 108 18 161/89 95 Room Air Physical Exam GENERAL: Awake, alert, well appearing, no distress HENT: Normocephalic, atraumatic. TM's normal. Oropharynx unremarkable. EYES: PERRL. EOMI. Normal conjunctiva. Sclera non-icteric. NECK: Supple. No nuchal rigidity. FROM. No JVD or bruit. RESPIRATORY: CTA CARDIAC: RRR. No murmur. ABDOMEN: Soft, non distended. No tenderness to palpation. No rebound or guarding. No masses. RECTAL: Deferred. MUSCULOSKELETAL: Unremarkable. No edema. No discoloration. Gross motor strength symmetric. NEURO: Cranial nerves 2-12 grossly intact. Normal sensorium. No sensory or motor deficits noted. Stuttering present and repetitive statements. No pronator drift. SKIN: No rash or jaundice noted. LYMPH: No adenopathy. Medical Decision & Procedures ER Provider Diagnostic Interpretation: Radiology results as stated below per my review and radiologist interpretation: HEAD WITHOUT CONTRAST (CT) CLINICAL HISTORY: 50 years-old Female presenting with EVALUATE WEAKNESS. TECHNIQUE: Multidetector CT imaging of the head was performed without the use of intravenous contrast. IV contrast: None. A dose lowering technique was used consistent with the principles of ALARA (as low as reasonably achievable). COMPARISON: 10/31/2013. CT DOSE (mGy.cm): The estimated cumulative dose is 720.95 mGycm. 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 Ventricles and sulci normal in size. Minimal hyperdense focus in the right basal ganglia, nonspecific and likely calcification. Remainder brain parenchyma normal. No mass effect or midline shift. No hemorrhage or acute territorial infarct. No extra-axial fluid collection. Paranasal sinuses and mastoid air cells clear. Calvarium intact. IMPRESSION: 1. No acute intracranial pathology. Electronically signed by: Abner Gentile M.D. 10/28/2016 8:22 PM Dictated Date/Time: 10/28/2016 8:18 PM CHEST ONE VIEW PORTABLE CLINICAL HISTORY: 50 years-old Female presenting with EVALUATE WEAKNESS. TECHNIQUE: Portable upright AP view of the chest was obtained. COMPARISON: 10/25/2012. FINDINGS: Spinal stimulator projects over the lower thoracic spine. Cardiomediastinal silhouette normal. Lungs and pleural spaces clear. Osseous structures and upper abdomen normal. IMPRESSION: 1. No acute cardiopulmonary disease. Electronically signed by: Abner Gentile M.D. 10/28/2016 8:41 PM Dictated Date/Time: 10/28/2016 8:40 PM Laboratory Results 10/28/16 20:05 Red Blood Count 5.16, Mean Corpuscular Volume 88.0, Mean Corpuscular Hemoglobin 30.8, Mean Corpuscular Hemoglobin Concent 35.0, Mean Platelet Volume 12.2, Neutrophils (%) (Auto) 63.3, Lymphocytes (%) (Auto) 31.0, Monocytes (%) (Auto) 4.5, Eosinophils (%) (Auto) 0.8, Basophils (%) (Auto) 0.2, Neutrophils # (Auto) 6.81, Lymphocytes # (Auto) 3.34, Monocytes # (Auto) 0.48, Eosinophils # (Auto) 0.09, Basophils # (Auto) 0.02 10/28/16 20:05 Test 10/28/16 19:59 10/28/16 20:05 10/28/16 21:00 Bedside Glucose 276 mg/dl (70-90) White Blood Count 10.76 K/uL (4.8-10.8) Red Blood Count 5.16 M/uL (4.2-5.4) Hemoglobin 15.9 g/dL (12.0-16.0) Hematocrit 45.4 % (37-47) Mean Corpuscular Volume 88.0 fL (80-100) Mean Corpuscular Hemoglobin 30.8 pg (25-34) Mean Corpuscular Hemoglobin Concent 35.0 g/dl (32-36) Platelet Count 214 K/uL (130-400) Mean Platelet Volume 12.2 fL (7.4-10.4) Neutrophils (%) (Auto) 63.3 % Lymphocytes (%) (Auto) 31.0 % Monocytes (%) (Auto) 4.5 % Eosinophils (%) (Auto) 0.8 % Basophils (%) (Auto) 0.2 % Neutrophils # (Auto) 6.81 K/uL (1.4-6.5) Lymphocytes # (Auto) 3.34 K/uL (1.2-3.4) Monocytes # (Auto) 0.48 K/uL (0.11-0.59) Eosinophils # (Auto) 0.09 K/uL (0-0.5) Basophils # (Auto) 0.02 K/uL (0-0.2) RDW Standard Deviation 42.8 fL (36.4-46.3) RDW Coefficient of Variation 13.2 % (11.5-14.5) Immature Granulocyte % (Auto) 0.2 % Immature Granulocyte # (Auto) 0.02 K/uL (0.00-0.02) Prothrombin Time 10.7 SECONDS (9.0-12.0) Prothromb Time International Ratio 1.0 (0.9-1.1) Activated Partial Thromboplast Time 26.5 SECONDS (21.0-31.0) Partial Thromboplastin Ratio 1.0 Anion Gap 7.0 mmol/L (3-11) Est Creatinine Clear Calc Drug Dose 84.9 ml/min Estimated GFR () 80.0 Estimated GFR (Non- 69.1 BUN/Creatinine Ratio 7.7 (10-20) Calcium Level 9.7 mg/dl (8.5-10.1) Magnesium Level 1.9 mg/dl (1.8-2.4) Total Bilirubin 0.4 mg/dl (0.2-1) Direct Bilirubin < 0.1 mg/dl (0-0.2) Aspartate Amino Transf (AST/SGOT) 37 U/L (15-37) Alanine Aminotransferase (ALT/SGPT) 44 U/L (12-78) Alkaline Phosphatase 109 U/L (45-117) Total Creatine Kinase 87 U/L (26-192) Creatine Kinase MB < 0.5 ng/ml (0.5-3.6) Creatine Kinase MB Ratio (0-3.0) Troponin I < 0.015 ng/ml (0-0.045) Total Protein 7.9 gm/dl (6.4-8.2) Albumin 3.8 gm/dl (3.4-5.0) Lipase 196 U/L (73-393) Thyroid Stimulating Hormone (TSH) 0.160 uIu/ml (0.300-4.500) Free Thyroxine 1.35 ng/dl (0.80-1.60) Urine Color YELLOW Urine Appearance CLEAR (CLEAR) Urine pH 5.0 (4.5-7.5) Urine Specific [place] 1.014 (1.000-1.030) Urine Protein NEG (NEG) Urine Glucose (UA) 2+ (NEG) Urine Ketones NEG (NEG) Urine Occult Blood NEG (NEG) Urine Nitrite NEG (NEG) Urine Bilirubin NEG (NEG) Urine Urobilinogen NEG (NEG) Urine Leukocyte Esterase NEG (NEG) Laboratory results reviewed by me Medications Administered Medications (Trade) Dose Ordered Sig/Shreya Route Start Time Stop Time Status Last Admin Dose Admin Sodium Chloride 1,000 ml @ 125 mls/hr Q8H STAT IV 10/28/16 20:01 10/29/16 04:00 10/28/16 21:37 125 MLS/HR Aspirin (Aspirin Chew) 324 mg NOW STAT PO 10/28/16 21:39 10/28/16 21:40 DC 10/28/16 21:58 324 MG Potassium Chloride (Klor-Con M10) 40 meq NOW STAT PO 10/28/16 22:28 10/28/16 22:39 DC 10/28/16 23:16 40 MEQ Promethazine HCl 25 mg/Sodium Chloride 51 ml @ 204 mls/hr NOW STAT IV 10/28/16 22:32 10/28/16 22:46 DC 10/28/16 23:17 204 MLS/HR Morphine Sulfate (MoRPHine SULFATE INJ) 4 mg NOW STAT IV 10/28/16 22:32 10/28/16 22:33 DC 10/28/16 23:17 4 MG ECG Indication: other (Neurologic Symptoms) Rate (beats per minute): 89 Rhythm: normal sinus Findings: no acute ischemic change, no ectopy ED Course 1955: The patient was evaluated in room A4B. A complete history and physical exam was performed. 2000: Ordered Sodium Chloride 1000 ml @ 125 mls/hr IV 2138: Ordered Aspirin 324 mg PO 0: I spoke with Dr. Marshall of [facility] Neurology at this time. We discussed the patient's case. She believes that this is unlikely stroke related. However, given the patient's recent medical history, she would like the patient to be evaluated further as an inpatient with a stroke workup. 2225: Upon reexamination, the patient was resting. I discussed the test results and treatment plan with her. The patient will be evaluated by Dr. Doan - [facility], for further management. 8: Ordered Potassium Chloride 40 meq PO 2: Ordered Morphine Sulfate 4 mg IV, Promethazine HCl 25 mg/Sodium Chloride 51 ml @ 204 mls/hr IV Medical Decision Triage Nursing notes reviewed. The patient's presentation and history were concerning for difficulty speaking and headache. Etiologies such as migraine, CVA, TIA, metabolic, infection, hypo/hyperglycemia , electrolyte abnormalities, cardiac sources, intracerebral event, toxicologic, neurologic, as well as others were entertained. The patient was evaluated. Blood work was obtained. She was found to be mildly hyperglycemic. She was hydrated. The patient had an unremarkable head CT and chest x-ray. ECG was unremarkable. On reassessment she noted her headache returned. She was given a dose of aspirin and I consulted neurology. Dr. Violette Marshall recommended a stroke workup given the symptoms and I therefore consulted with the hospitalist service. The patient was evaluated in the Emergency Room for further management. Medication Reconcilliation Current Medication List: was personally reviewed by me Blood Pressure Screening Patient's blood pressure: Elevated blood pressure Blood pressure disposition: Elevated BP felt to be situational Consults Time Called: 2154 Consulting Physician: Dr. Joanna Cha Neurology Returned Call: [phone] We discussed the patient's case. See ED course. Additional Consults: Time Called: 2219 Consulted Physician: Dr. Franki Cha Hospitalist Returned Call: [phone] Additional Comments: Discussed the patient's case. The patient will be evaluated for further treatment and disposition. Impression Primary Impression: Expressive aphasia Additional Impressions: Word finding difficulty Headache Scribe Attestation The scribe's documentation has been prepared under my direction and personally reviewed by me in its entirety. I confirm that the note above accurately reflects all work, treatment, procedures, and medical decision making performed by me. Departure Information Dispostion Being Evaluated By Hospitalist Referrals Irma Fry M.D. (PCP) Patient Instructions My [facility] Problem Qualifiers
[2016-10-28] MEDS ORDERED: NICOTINE 14 MG/24 HR TDSY TD STA (23:26)
[2016-10-28] MEDS ORDERED: RANITIDINE HCL 150 MG TAB PO PRN (23:30)
[2016-10-28] MEDS ORDERED: PHARMACIST DISCHARGE MED REC CONSULT PRN (23:30)
[2016-10-28] MEDS ORDERED: TIOTROPIUM BROMIDE 5 PUFF/90 MCG INH INH PRN (23:30)
[2016-10-28] MEDS ORDERED: GLUCOSE 40% GEL 15 GM TUBE PO PRN (23:30)
[2016-10-28] MEDS ORDERED: GLUCOSE 10 TABS/TUBE PO PRN (23:30)
[2016-10-28] MEDS ORDERED: NITROGLYCERIN 0.4 MG SL PER TAB CHARGE SL PRN (23:30)
[2016-10-28] MEDS ORDERED: DEXTROSE 50% 50 ML SYR IV PRN (23:30)
[2016-10-28] MEDS ORDERED: ONDANSETRON INJ 2 MG/ML 2 ML VIAL IV PRN (23:30)
[2016-10-28] MEDS ORDERED: GLUCAGON FOR INJ 1 MG VIAL SQ PRN (23:30)
[2016-10-28] MEDS ORDERED: INSULIN ASPART 100 UNITS/ML 3 ML PEN SC STA (23:38)
[2016-10-28] MEDS ORDERED: INSULIN GLARGINE SOLOSTAR 100 UNITS/ML 3 ML PEN SC STA (23:39)
[2016-10-28] MEDS ORDERED: IV FLUIDS COMPLETED PRN (23:45)
[2016-10-29] VITALS (7 sets, daily range): BP systolic 100–129; BP diastolic 63–82; PULSE 59–80; TEMP 36.5–36.8; O2SAT 94–99; Ht 162.6 cm; Wt 107.6 kg
[2016-10-29 00:15] LABS: LYME DISEASE AB IGG NEG (NEG); LYME DISEASE AB IGM NEG (NEG)
[2016-10-29] MEDS ORDERED: NSS + 20MEQ KCL 1000ML 1,000 ML IV ONE (01:15)
[2016-10-29] MEDS ORDERED: LORAZEPAM 2 MG/ML 1 ML VIAL IV PRN (05:00)
--- NOTE | 2016-10-29 05:34 | HISTORY & PHYSICAL EXAMINATION ---
DATE OF ADMISSION: 10/28/2016 PRIMARY CARE PHYSICIAN: Dr. Fry. CHIEF COMPLAINT: Headache, numbness, face, hands, feet. HISTORY OF PRESENT ILLNESS: History obtained from patient and records. Medical history significant for COPD, ongoing tobacco abuse, chronic pain/ fibromyalgia on narcotics, fatty liver as per records, GERD, hyperlipidemia, hypothyroidism, depression. DM 2, insulin requiring. Recent confinement in September 2010 for a COPD exacerbation. Last night, patient noted burning headache at the base of the skull along with tingling on the left side of her face, both hands and both feet; tingling. No chest pain. Admits to some shortness of breath. No unusual cough symptoms. Patient given aspirin in the Emergency Room. Numbness improving. MEDICAL HISTORY: As above. SURGERIES: Total abdominal hysterectomy, oophorectomy, cholecystectomy, appendectomy, tonsillectomy, back surgery, section. HOME MEDICATIONS: Include levothyroxine, Zofran, oxycodone, Micro-K, Crestor ranitidine, sucralfate, Spiriva, gabapentin, Vicodin, DuoNeb, Lantus, Humalog, ProAir, vitamin D3, citalopram, loratadine, EpiPen, fluticasone. ALLERGIES: AZITHROMYCIN, OMEPRAZOLE, DYE, PEANUTS, SHELLFISH. FAMILY HISTORY: Diabetes. PERSONAL AND SOCIAL HISTORY: A pack daily. No chronic intake of alcoholic beverages. 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 REVIEW OF SYSTEMS: As per HPI, all other ROS negative. PHYSICAL EXAMINATION: VITAL SIGNS: Blood pressure was noted to be 161/89later 130/80, pulse rate 80, RR 18, temperature 36.8, sats 94 on room air. GENERAL: Noted to be obese, slightly anxious, no respiratory distress. Uncomfortable. SKIN: Normal color. HEENT: [place] palpebral conjunctivae. Moist mucosa. NECK: Short neck. LUNGS: Decreased breath sounds. HEART: Regular rate and rhythm. ABDOMEN: Soft. EXTREMITIES: No edema. no tenderness NEUROLOGIC: No gross focality. LABS: Hemoglobin was noted to be 15.9, hematocrit 35.4, white cell 10.7, platelets 214. Sodium 136, potassium 3.4, chloride 102, CO2 29, BUN 8, creatinine 0.9, glucose noted to be 281. D-dimer was normal. Hemoglobin A1c from July 2016 was 10.2. Lipid profile, cholesterol 196, triglycerides 158, HDL 57, LDL 110. Chest x-ray, no acute cardiopulmonary disease. CT head, no acute pathology. EKG, as per my interpretation, rate 90, normal sinus rhythm, left atrial enlargement, no ischemia. ASSESSMENT: 1. Headache with numbness on the left face, both hands, both feet improving symptoms. Transient ischemic attack versus complicated migraine. 2. DM2, insulin requiring, suboptimal control as of recent A1c.3. 3. Chronic obstructive pulmonary disease. ongoing tobacco abuse. Pulmonary status at baseline. 4. Chronic pain, on narcotics. 5. Hyperlipidemia, statin therapy. 6. Hypokalemia 2 to home insulin tx. PLAN: Observation PCU, neuro checks ASA for now for stroke prevention until stroke ruled out by MRI/MRA of brain. Neurology consult RE : headache, neurologic symptoms. May need additional stroke workup if MRI shows acute stroke. Basal insulin, ISS BG goal 140-180. Carb count coverage indicated for suboptimal blood sugar control. Replace potassium. Nicotine patch. DVT prophylaxis, Lovenox subQ. Full code. MTDD
[2016-10-29 05:47] LABS: BASO % 0.2 %; BASO ABS # 0.02 K/uL (0-0.2); COMPLETE YES; EOS % 1.3 %; HEMATOCRIT 42.9 % (37-47); IG% 0.2 %; LYMPH % 39.1 %; LYMPH ABS # 3.68 K/uL (1.2-3.4); MEAN CELL VOLUME 89.9 fL (80-100); MEAN CORPUSCULAR HEMOGLOBIN 28.7 pg (25-34); MEAN CORPUSCULAR HGB CONC 31.9 g/dl (32-36); MEAN PLATELET VOLUME 12.2 fL (7.4-10.4); MONO % 6.3 %; NEUT % 52.9 %; PLATELET COUNT 200 K/uL (130-400); RED BLOOD COUNT 4.77 M/uL (4.2-5.4); WHITE BLOOD COUNT 9.42 K/uL (4.8-10.8)
[2016-10-29] MEDS: LEVOTHYROXINE 150 MCG TAB PO SCH (06:34)
[2016-10-29 06:36] LABS: BLOOD UREA NITROGEN 10 mg/dl (7-18); BUN/CREATININE RATIO 13.4 (10-20); CALCIUM 9.2 mg/dl (8.5-10.1); CARBON DIOXIDE 29 mmol/L (21-32); CHLORIDE 108 mmol/L (98-107); CREATININE 0.76 mg/dl (0.60-1.20); GLUCOSE 209 mg/dl (70-99); POTASSIUM 3.9 mmol/L (3.5-5.1); SODIUM 142 mmol/L (136-145)
[2016-10-29] MEDS: CLARINEX~ORDER AWAITING ACTION SCH ×2 (07:15→14:37)
[2016-10-29] MEDS: SUCRALFATE 1 GM TAB PO SCH ×3 (08:18→16:26)
[2016-10-29] MEDS: GABAPENTIN 800 MG TAB PO SCH ×3 (08:18→22:11)
[2016-10-29] MEDS: CITALOPRAM 40 MG TAB PO SCH (08:18)
[2016-10-29] MEDS: ASPIRIN 325 MG ECTAB PO SCH (08:19)
[2016-10-29] MEDS: ROSUVASTATIN CALCIUM 10 MG TAB PO SCH (08:20)
[2016-10-29] MEDS: ENOXAPARIN 40 MG/0.4 ML SYR SC SCH (08:21)
[2016-10-29] MEDS: INSULIN GLARGINE SOLOSTAR 100 UNITS/ML 3 ML PEN SC SCH ×2 (08:25→22:13)
[2016-10-29] MEDS: INSULIN ASPART 100 UNITS/ML 3 ML PEN SC SCH ×4 (08:26→22:17)
--- NOTE | 2016-10-29 11:44 | Progress Note ---
Subjective Date of Service: Oct 29, 2016. Subjective Pt evaluation today including: conversation w/ patient, physical exam, lab review, review of studies, review of inpatient medication list Saw/examined the patient in room 220 States that last night she had a headache and developed numbness/tingling of the L side of her face and some speech disturbance she states that it lasted for 6 hours or so Today, denies all symptoms and is eager to go home States she cannot obtain an MRI due to her neurostimulator Problem List Medical Problems: (1) Epigastric abdominal pain Status: Acute (2) Expressive aphasia Status: Acute (3) Headache Status: Acute (4) Hyperglycemia Status: Acute (5) Word finding difficulty Status: Acute Review of Systems Constitutional: No fever, No chills Respiratory: No cough, No sputum, No shortness of breath Cardiac: No chest pain Abdomen: No pain, No nausea, No vomiting, No diarrhea Musculoskeletal: No joint pain Female : No dysuria, No urinary frequency Neurologic: No memory loss, No paralysis, No weakness, No numbness/tingling ( resolved), No vertigo, No balance problems Heme: No abnormal bleeding/bruising Medications Current Inpatient Medications Medications (Trade) Dose Ordered Sig/Shreya Route Start Time Stop Time Status Last Admin Dose Admin Nicotine (Nicoderm Cq 14MG Patch) 1 patch HS TD 10/29/16 21:00 11/28/16 20:59 Miscellaneous (Remove Nicoderm Patch) 1 ea HS N/A 10/29/16 21:00 11/28/16 20:59 Enoxaparin Sodium (Lovenox Inj) 40 mg Q24H SC 10/29/16 09:00 11/28/16 08:59 10/29/16 08:21 40 MG Potassium Chloride/Sodium Chloride 1,000 ml @ 75 mls/hr [id number] ONCE IV 10/29/16 01:15 10/29/16 14:34 10/29/16 01:39 75 MLS/HR Nitroglycerin (Nitrostat Tab) 0.4 mg UD PRN SL 10/28/16 23:30 11/27/16 23:29 Miscellaneous Information (Pharmacist Discharge Med Rec Consult) 1 ea UD PRN N/A 10/28/16 23:30 11/27/16 23:29 Citalopram Hydrobromide (celeXA TAB) 40 mg QAM PO 10/29/16 09:00 11/28/16 08:59 10/29/16 08:18 40 MG Fluticasone Propionate (Flonase Nasal [place]) 2 sprays QPM RUBÉN 10/29/16 21:00 11/28/16 20:59 Gabapentin (Neurontin Tab) 800 mg TID PO 10/29/16 09:00 11/28/16 08:59 10/29/16 08:18 800 MG Acetaminophen/ Hydrocodone Bitart ([place] 10/325 Tab) 1 tab TID PRN PO 10/28/16 23:30 11/11/16 23:29 Levothyroxine Sodium (Synthroid Tab) 150 mcg DAILYBB PO 10/29/16 06:00 11/28/16 06:59 10/29/16 06:34 150 MCG Oxycodone HCl (Oxycontin Tab) 10 mg QPM PO 10/29/16 21:00 11/12/16 20:59 Ranitidine HCl (zANTac TAB) 150 mg BID PRN PO 10/28/16 23:30 11/27/16 23:29 Rosuvastatin Calcium (Crestor Tab) 5 mg QAM PO 10/29/16 09:00 11/28/16 08:59 10/29/16 08:20 5 MG Sucralfate (Carafate Tab) 1 gm AC PO 10/29/16 07:00 11/28/16 06:59 10/29/16 11:08 1 GM Tiotropium [place] (Spiriva Handihaler Inhaler) 1 puff DAILY PRN INH 10/28/16 23:30 11/27/16 23:29 Miscellaneous Information (Order Awaiting Action) 1 ea QS N/A 10/29/16 08:00 11/28/16 07:59 Morphine Sulfate (MoRPHine SULFATE INJ) 4 mg Q6H PRN IV 10/28/16 23:30 11/11/16 23:29 Ondansetron HCl (Zofran Inj) 4 mg Q6H PRN IV 10/28/16 23:30 11/27/16 23:29 Insulin Glargine (Lantus Solostar Pen) 40 units BID SC 10/29/16 09:00 11/28/16 08:59 10/29/16 08:25 40 UNITS Insulin Aspart (novoLOG ASPART) SLIDING SCALE If C... ACHS SC 10/29/16 07:00 11/28/16 06:59 10/29/16 08:26 2 UNITS Glucose (Glucose 40% Gel) 15-30 GRAMS 15 GRAMS... UD PRN PO 10/28/16 23:30 11/27/16 23:29 Glucose (Glucose Chew Tab) 4-8 Tablets 4 Tabl... UD PRN PO 10/28/16 23:30 11/27/16 23:29 Dextrose (Dextrose 50% 50ML Syringe) 25-50ML OF 50% DW IV FOR... UD PRN IV 10/28/16 23:30 11/27/16 23:29 Glucagon (Glucagon Inj) 1 mg UD PRN SQ 10/28/16 23:30 11/27/16 23:29 Miscellaneous (Iv Fluids Completed) 1 ea PRN PRN N/A 10/28/16 23:45 10/28/17 23:44 Aspirin (Ecotrin Tab) 325 mg QAM PO 10/29/16 09:00 11/28/16 08:59 10/29/16 08:19 325 MG Lorazepam (Ativan Inj) 0.5 mg Q1H PRN IV 10/29/16 05:00 11/28/16 04:59 Objective Vital Signs Date Time Temp Pulse Resp B/P (MAP) Pulse Ox O2 Delivery O2 Flow Rate FiO2 10/29/16 08:02 36.5 68 18 110/63 (79) 98 10/29/16 08:00 Room Air 10/29/16 04:00 Room Air 10/29/16 03:39 36.7 68 20 105/72 (83) 94 Room Air 10/29/16 00:44 36.8 72 20 129/79 94 Room Air 10/29/16 00:31 71 112/68 96 Room Air 10/28/16 22:33 80 18 150/96 98 Room Air 10/28/16 21:14 94 10/28/16 21:07 96 Room Air 10/28/16 20:12 37.3 108 18 161/89 95 Room Air Physical Exam General Appearance: no apparent distress, + obese Respiratory/Chest: chest non-tender, lungs clear, normal breath sounds, no respiratory distress, no accessory muscle use Cardiovascular: regular rate, rhythm, no edema, no gallop, no JVD, no murmur Abdomen: normal bowel sounds, non tender, soft Extremities: normal inspection, no pedal edema Neurologic/Psychiatric: fraud manager II-XII nml as tested, no motor/sensory deficits, alert, normal mood/affect, oriented x 3 Laboratory Results Last 24 Hours Test 10/28/16 19:59 10/28/16 20:05 10/28/16 21:00 10/28/16 22:30 Bedside Glucose 276 mg/dl 144 mg/dl White Blood Count 10.76 K/uL Red Blood Count 5.16 M/uL Hemoglobin 15.9 g/dL Hematocrit 45.4 % Mean Corpuscular Volume 88.0 fL Mean Corpuscular Hemoglobin 30.8 pg Mean Corpuscular Hemoglobin Concent 35.0 g/dl Platelet Count 214 K/uL Mean Platelet Volume 12.2 fL Neutrophils (%) (Auto) 63.3 % Lymphocytes (%) (Auto) 31.0 % Monocytes (%) (Auto) 4.5 % Eosinophils (%) (Auto) 0.8 % Basophils (%) (Auto) 0.2 % Neutrophils # (Auto) 6.81 K/uL Lymphocytes # (Auto) 3.34 K/uL Monocytes # (Auto) 0.48 K/uL Eosinophils # (Auto) 0.09 K/uL Basophils # (Auto) 0.02 K/uL RDW Standard Deviation 42.8 fL RDW Coefficient of Variation 13.2 % Immature Granulocyte % (Auto) 0.2 % Immature Granulocyte # (Auto) 0.02 K/uL Prothrombin Time 10.7 SECONDS Prothromb Time International Ratio 1.0 Activated Partial Thromboplast Time 26.5 SECONDS Partial Thromboplastin Ratio 1.0 D-Dimer 350 ug/L FEU Sodium Level 138 mmol/L Potassium Level 3.4 mmol/L Chloride Level 102 mmol/L Carbon Dioxide Level 29 mmol/L Anion Gap 7.0 mmol/L Blood Urea Nitrogen 8 mg/dl Creatinine 0.97 mg/dl Est Creatinine Clear Calc Drug Dose 84.9 ml/min Estimated GFR () 80.0 Estimated GFR (Non- 69.1 BUN/Creatinine Ratio 7.7 Random Glucose 281 mg/dl Calcium Level 9.7 mg/dl Magnesium Level 1.9 mg/dl Total Bilirubin 0.4 mg/dl Direct Bilirubin < 0.1 mg/dl Aspartate Amino Transf (AST/SGOT) 37 U/L Alanine Aminotransferase (ALT/SGPT) 44 U/L Alkaline Phosphatase 109 U/L Total Creatine Kinase 87 U/L Creatine Kinase MB < 0.5 ng/ml Creatine Kinase MB Ratio Troponin I < 0.015 ng/ml Total Protein 7.9 gm/dl Albumin 3.8 gm/dl Lipase 196 U/L Thyroid Stimulating Hormone (TSH) 0.160 uIu/ml Free Thyroxine 1.35 ng/dl Lyme Disease IgG Antibody NEG Lyme Disease IgM Antibody NEG Urine Color YELLOW Urine Appearance CLEAR Urine pH 5.0 Urine Specific [place] 1.014 Urine Protein NEG Urine Glucose (UA) 2+ Urine Ketones NEG Urine Occult Blood NEG Urine Nitrite NEG Urine Bilirubin NEG Urine Urobilinogen NEG Urine Leukocyte Esterase NEG Test 10/28/16 23:42 10/29/16 05:15 10/29/16 06:25 Bedside Glucose 187 mg/dl 185 mg/dl White Blood Count 9.42 K/uL Red Blood Count 4.77 M/uL Hemoglobin 13.7 g/dL Hematocrit 42.9 % Mean Corpuscular Volume 89.9 fL Mean Corpuscular Hemoglobin 28.7 pg Mean Corpuscular Hemoglobin Concent 31.9 g/dl Platelet Count 200 K/uL Mean Platelet Volume 12.2 fL Neutrophils (%) (Auto) 52.9 % Lymphocytes (%) (Auto) 39.1 % Monocytes (%) (Auto) 6.3 % Eosinophils (%) (Auto) 1.3 % Basophils (%) (Auto) 0.2 % Neutrophils # (Auto) 4.99 K/uL Lymphocytes # (Auto) 3.68 K/uL Monocytes # (Auto) 0.59 K/uL Eosinophils # (Auto) 0.12 K/uL Basophils # (Auto) 0.02 K/uL RDW Standard Deviation 45.3 fL RDW Coefficient of Variation 13.6 % Immature Granulocyte % (Auto) 0.2 % Immature Granulocyte # (Auto) 0.02 K/uL Sodium Level 142 mmol/L Potassium Level 3.9 mmol/L Chloride Level 108 mmol/L Carbon Dioxide Level 29 mmol/L Anion Gap 5.0 mmol/L Blood Urea Nitrogen 10 mg/dl Creatinine 0.76 mg/dl Est Creatinine Clear Calc Drug Dose 108.1 ml/min Estimated GFR () 107.5 Estimated GFR (Non- 92.8 BUN/Creatinine Ratio 13.4 Random Glucose 209 mg/dl Calcium Level 9.2 mg/dl Troponin I < 0.015 ng/ml Total Triiodothyronine 0.87 ng/ml Assessment and Plan This is a 50 year old female with a PMH of insulin dependent DM2, fibromyalgia, depression/anxiety, COPD, chronic pain s/p neurostimulator, presented with a headache as well as some numbness/tingling of the L side of her face Migraine - resolved r/o CVA Head CT negative patient is allergic to IV contrast cannot obtain MRI due to neurostimulator symptoms have resolved continue ASA, statin neuro consult pending for further input Insulin Dependent DM2 continue Lantus 40 units BID continue insulin sliding scale Depression/Anxiety continue home medications Hypothyroidism continue Synthroid DVT ppx Lovenox FULL CODE
[2016-10-29] MEDS: HYDROCODONE/ACETAMI 10/325 TAB PO PRN ×2 (13:21→22:11)
--- NOTE | 2016-10-29 16:13 | Neurology Consultation ---
Neurology Consultation Date of Consultation: Oct 29, 2016. Attending Physician: Radha Palm DO Primary Care Physician: Irma Fry M.D. Reason for Consultation: headache, numbness in face and extremities History of Present Illness Source: patient Arely is a 50 year old female with COPD, ongoing tobacco abuse, chronic pain- on narcotics, fibromyalgia, fatty liver, reflux, hyperlipidemia, hypothyroidism , depression, Last night, last night she went to bed with a headache and woke with headache which was pounding. usually when she gets headaches she takes Excedrin and it is relieved. She then had tingling around her mouth and on both sides of her check, she also had numbness and tingling in her hands with no weakness. She also had nausea. She was given aspirin and morphine in the ED which helped and the numbness and tingling resolved. she has also been getting some blurred double vision which comes and goes. She does wear glasses and she know she needs an eye exam. denies CP, SOB, abdominal pain, current weakness, numbness tingling, N, V. She has a neurostimulator which can be turned off if she needs the MRI. She gave the instructions to the chemical radiation technician if needed. She also has numbness and tingling in her LE but no more than normal with her back issues. Past Medical/Surgical History Medical Problems: (1) Epigastric abdominal pain Status: Acute (2) Expressive aphasia Status: Acute (3) Headache Status: Acute (4) Hyperglycemia Status: Acute (5) Word finding difficulty Status: Acute Social History Smoking Status: Former smoker Drug Use: none Marital Status: Housing Status: lives with family Occupation Status: employed Allergies Coded Allergies: Shellfish (Verified Allergy, Severe, ANAPHYLAXIS, 10/28/16) Iodinated Contrast Media (Verified Allergy, Unknown, ANAPHYLAXIS, 10/28/16) Omeprazole (Verified Allergy, Unknown, ANAPHYLAXIS, 10/28/16) Peanut (Verified Allergy, Unknown, LIPS SWELL FROM PEANUT SHELL DUST, ) Egg (Verified Adverse Reaction, Mild, DYSPEPSIA, N/V, 10/28/16) Erythromycin (Verified Adverse Reaction, Unknown, GI UPSET, 10/28/16) Current Inpatient Medications Current Inpatient Medications Medications (Trade) Dose Ordered Sig/Shreya Route Start Time Stop Time Status Last Admin Dose Admin Nicotine (Nicoderm Cq 14MG Patch) 1 patch HS TD 10/29/16 21:00 11/28/16 20:59 Miscellaneous (Remove Nicoderm Patch) 1 ea HS N/A 10/29/16 21:00 11/28/16 20:59 Enoxaparin Sodium (Lovenox Inj) 40 mg Q24H SC 10/29/16 09:00 11/28/16 08:59 10/29/16 08:21 40 MG Nitroglycerin (Nitrostat Tab) 0.4 mg UD PRN SL 10/28/16 23:30 11/27/16 23:29 Miscellaneous Information (Pharmacist Discharge Med Rec Consult) 1 ea UD PRN N/A 10/28/16 23:30 11/27/16 23:29 Citalopram Hydrobromide (celeXA TAB) 40 mg QAM PO 10/29/16 09:00 11/28/16 08:59 10/29/16 08:18 40 MG Fluticasone Propionate (Flonase Nasal [place]) 2 sprays QPM RUBÉN 10/29/16 21:00 11/28/16 20:59 Gabapentin (Neurontin Tab) 800 mg TID PO 10/29/16 09:00 11/28/16 08:59 10/29/16 08:18 800 MG Acetaminophen/ Hydrocodone Bitart ([place] 10/325 Tab) 1 tab TID PRN PO 10/28/16 23:30 11/11/16 23:29 10/29/16 13:21 1 TAB Levothyroxine Sodium (Synthroid Tab) 150 mcg DAILYBB PO 10/29/16 06:00 11/28/16 06:59 10/29/16 06:34 150 MCG Oxycodone HCl (Oxycontin Tab) 10 mg QPM PO 10/29/16 21:00 11/12/16 20:59 Ranitidine HCl (zANTac TAB) 150 mg BID PRN PO 10/28/16 23:30 11/27/16 23:29 Rosuvastatin Calcium (Crestor Tab) 5 mg QAM PO 10/29/16 09:00 11/28/16 08:59 10/29/16 08:20 5 MG Sucralfate (Carafate Tab) 1 gm AC PO 10/29/16 07:00 11/28/16 06:59 10/29/16 11:08 1 GM Tiotropium [place] (Spiriva Handihaler Inhaler) 1 puff DAILY PRN INH 10/28/16 23:30 11/27/16 23:29 Miscellaneous Information (Order Awaiting Action) 1 ea QS N/A 10/29/16 08:00 11/28/16 07:59 Morphine Sulfate (MoRPHine SULFATE INJ) 4 mg Q6H PRN IV 10/28/16 23:30 11/11/16 23:29 Ondansetron HCl (Zofran Inj) 4 mg Q6H PRN IV 10/28/16 23:30 11/27/16 23:29 Insulin Glargine (Lantus Solostar Pen) 40 units BID SC 10/29/16 09:00 11/28/16 08:59 10/29/16 08:25 40 UNITS Insulin Aspart (novoLOG ASPART) SLIDING SCALE If C... ACHS SC 10/29/16 07:00 11/28/16 06:59 10/29/16 11:49 7 UNITS Glucose (Glucose 40% Gel) 15-30 GRAMS 15 GRAMS... UD PRN PO 10/28/16 23:30 11/27/16 23:29 Glucose (Glucose Chew Tab) 4-8 Tablets 4 Tabl... UD PRN PO 10/28/16 23:30 11/27/16 23:29 Dextrose (Dextrose 50% 50ML Syringe) 25-50ML OF 50% DW IV FOR... UD PRN IV 10/28/16 23:30 11/27/16 23:29 Glucagon (Glucagon Inj) 1 mg UD PRN SQ 10/28/16 23:30 11/27/16 23:29 Miscellaneous (Iv Fluids Completed) 1 ea PRN PRN N/A 10/28/16 23:45 10/28/17 23:44 Aspirin (Ecotrin Tab) 325 mg QAM PO 10/29/16 09:00 11/28/16 08:59 10/29/16 08:19 325 MG Lorazepam (Ativan Inj) 0.5 mg Q1H PRN IV 10/29/16 05:00 11/28/16 04:59 Physical Exam Vital Signs (Past 24 Hrs): Date Time Temp Pulse Resp B/P (MAP) Pulse Ox O2 Delivery O2 Flow Rate FiO2 10/29/16 15:34 36.5 66 18 118/76 (90) 97 Room Air 10/29/16 12:19 36.6 59 18 100/63 (75) 99 10/29/16 12:00 Room Air 10/29/16 08:02 36.5 68 18 110/63 (79) 98 10/29/16 08:00 Room Air 10/29/16 04:00 Room Air 10/29/16 03:39 36.7 68 20 105/72 (83) 94 Room Air 10/29/16 00:44 36.8 72 20 129/79 94 Room Air 10/29/16 00:31 71 112/68 96 Room Air 10/28/16 22:33 80 18 150/96 98 Room Air 10/28/16 21:14 94 10/28/16 21:07 96 Room Air 10/28/16 20:12 37.3 108 18 161/89 95 Room Air Physical Exam: Constitutional: appearance nourished, healthy somewhat disheveled Ears, Nose, Mouth and Throat: mucous membranes moist, no injection and skin normal, eyes normal Cardiovascular: normal S-1 and S-2 and regular rate and rhythm Respiratory: clear to auscultation (CTA) and no rales, rhonchi or wheeze Musculoskeletal: no peripheral edema and good distal pulses Skin: no stigmata of neurocutaneous disease noted and normal and intact Eyes: extraocular muscles intact (EOMI) and pupils equal, round and reactive to light (PERRL) miotic NEUROLOGIC EXAMINATION: Mental status: Alert and interactive Oriented to full date and location Oriented to person Speech fluent with no evidence of aphasia Cranial Nerves smile eye brow raise symmetric, tongue midline Reflexes: Deep tendon reflexes were symmetrical decreased bilaterally LE Sensory: intact to cool touch Coordination: Romberg absent Gait/Stance: Posture normal. Gait normal: with steady with steps, base, turning and tandem gait. Motor: Negative for pronator drift of out stretched arms with eyes closed. Strength: biceps triceps deltoids hand cath lab manager bilaterally 5/5, hip flex plantar flex ext 4/ 5 bilaterally break away weakness Laboratory Results Past 24 Hours: 10/29/16 05:15 Red Blood Count 4.77, Mean Corpuscular Volume 89.9, Mean Corpuscular Hemoglobin 28.7, Mean Corpuscular Hemoglobin Concent 31.9, Mean Platelet Volume 12.2, Neutrophils (%) (Auto) 52.9, Lymphocytes (%) (Auto) 39.1, Monocytes (%) (Auto) 6.3, Eosinophils (%) (Auto) 1.3, Basophils (%) (Auto) 0.2, Neutrophils # (Auto) 4.99, Lymphocytes # (Auto) 3.68, Monocytes # (Auto) 0.59, Eosinophils # (Auto) 0.12, Basophils # (Auto) 0.02 10/29/16 05:15 Test 10/28/16 20:05 10/28/16 21:00 10/29/16 05:15 10/29/16 11:11 Prothrombin Time 10.7 SECONDS (9.0-12.0) Prothromb Time International Ratio 1.0 (0.9-1.1) Activated Partial Thromboplast Time 26.5 SECONDS (21.0-31.0) Partial Thromboplastin Ratio 1.0 D-Dimer 350 ug/L FEU (0-500) Magnesium Level 1.9 mg/dl (1.8-2.4) Total Bilirubin 0.4 mg/dl (0.2-1) Direct Bilirubin < 0.1 mg/dl (0-0.2) Aspartate Amino Transf (AST/SGOT) 37 U/L (15-37) Alanine Aminotransferase (ALT/SGPT) 44 U/L (12-78) Alkaline Phosphatase 109 U/L (45-117) Total Creatine Kinase 87 U/L (26-192) Creatine Kinase MB < 0.5 ng/ml (0.5-3.6) Creatine Kinase MB Ratio (0-3.0) Total Protein 7.9 gm/dl (6.4-8.2) Albumin 3.8 gm/dl (3.4-5.0) Lipase 196 U/L (73-393) Thyroid Stimulating Hormone (TSH) 0.160 uIu/ml (0.300-4.500) Free Thyroxine 1.35 ng/dl (0.80-1.60) Lyme Disease IgG Antibody NEG (NEG) Lyme Disease IgM Antibody NEG (NEG) Urine Color YELLOW Urine Appearance CLEAR (CLEAR) Urine pH 5.0 (4.5-7.5) Urine Specific [place] 1.014 (1.000-1.030) Urine Protein NEG (NEG) Urine Glucose (UA) 2+ (NEG) Urine Ketones NEG (NEG) Urine Occult Blood NEG (NEG) Urine Nitrite NEG (NEG) Urine Bilirubin NEG (NEG) Urine Urobilinogen NEG (NEG) Urine Leukocyte Esterase NEG (NEG) White Blood Count 9.42 K/uL (4.8-10.8) Red Blood Count 4.77 M/uL (4.2-5.4) Hemoglobin 13.7 g/dL (12.0-16.0) Hematocrit 42.9 % (37-47) Mean Corpuscular Volume 89.9 fL (80-100) Mean Corpuscular Hemoglobin 28.7 pg (25-34) Mean Corpuscular Hemoglobin Concent 31.9 g/dl (32-36) Platelet Count 200 K/uL (130-400) Mean Platelet Volume 12.2 fL (7.4-10.4) Neutrophils (%) (Auto) 52.9 % Lymphocytes (%) (Auto) 39.1 % Monocytes (%) (Auto) 6.3 % Eosinophils (%) (Auto) 1.3 % Basophils (%) (Auto) 0.2 % Neutrophils # (Auto) 4.99 K/uL (1.4-6.5) Lymphocytes # (Auto) 3.68 K/uL (1.2-3.4) Monocytes # (Auto) 0.59 K/uL (0.11-0.59) Eosinophils # (Auto) 0.12 K/uL (0-0.5) Basophils # (Auto) 0.02 K/uL (0-0.2) RDW Standard Deviation 45.3 fL (36.4-46.3) RDW Coefficient of Variation 13.6 % (11.5-14.5) Immature Granulocyte % (Auto) 0.2 % Immature Granulocyte # (Auto) 0.02 K/uL (0.00-0.02) Anion Gap 5.0 mmol/L (3-11) Est Creatinine Clear Calc Drug Dose 108.1 ml/min Estimated GFR () 107.5 Estimated GFR (Non- 92.8 BUN/Creatinine Ratio 13.4 (10-20) Calcium Level 9.2 mg/dl (8.5-10.1) Troponin I < 0.015 ng/ml (0-0.045) Total Triiodothyronine 0.87 ng/ml (0.60-1.81) Bedside Glucose 291 mg/dl (70-90) Imaging CT head- Ventricles and sulci normal in size. Minimal hyperdense focus in the right basal ganglia, nonspecific and likely calcification. Remainder brain parenchyma normal. No mass effect or midline shift. No hemorrhage or acute territorial infarct. No extra-axial fluid collection. Paranasal sinuses and mastoid air cells clear. Calvarial intact. Impression 50 year old female headache with numbness tingling around mouth bilaterally cheeks, hand numbness tingling Plan 1. CT head - no stroke or lesion 2. MRI brain - patient can turn off neuro stimulatory if needed-ordered 3. history of migraine headaches 4. currently being taper from narcotics after stimulator was placed 5. gabapentin currently 800 mg TID would continue 6. needs TTE I have seen and discussed above patient with Dr Violette Marshall, neurology Pt with throbbing headache with perioral and hand numbness lasting 1 hour and stuttering lasting three hours. Mult vasc risk factors. Neuro exam nonfocal. Suspect neurologic sx migrainous accompaniment, but rec cardiovascular eval, asa , smoking cessation, good control DM. Await MRI,A, will follow with you, ALMA Marshall MD
[2016-10-29] MEDS: OXYCODONE HCL 10 MG TABCR (OXYCONTIN) PO SCH (16:27)
[2016-10-29] MEDS ORDERED: NICOTINE 14 MG/24 HR TDSY TD SCH (21:00)
[2016-10-29] MEDS ORDERED: OXYCODONE HCL 10 MG TABCR (OXYCONTIN) PO SCH (21:00)
[2016-10-29] MEDS ORDERED: FLUTICASONE PROPIONATE NA SPR 16 GM BTL NAE SCH (21:00)
--- NOTE | 2016-10-29 22:03 | DIAGNOSTIC IMAGING REPORT ---
BRAIN WITHOUT CONTRAST HISTORY: Mental status change stroke like symptoms, patient has neurostimulator TECHNIQUE: Multiplanar multisequence MRI of the brain was performed without the use of contrast. COMPARISON STUDY: None. FINDINGS: There are no areas of restricted diffusion to suggest acute infarction. The midline structures are intact. The paranasal sinuses are clear. The mastoid air cells are clear. The ventricles and sulci are within normal limits for age. There is no mass, hematoma, midline shift. The major vascular flow-voids at the skull base are well maintained. IMPRESSION: No acute intracranial abnormality. The above report was generated using voice recognition software. It may contain grammatical, syntax or spelling errors. Electronically signed by: Wiley Mariano M.D. 10/29/2016 10:02 PM Dictated Date/Time: 10/29/2016 10:00 PM
[2016-10-30] VITALS (9 sets, daily range): BP systolic 103–132; BP diastolic 64–76; PULSE 66–79; TEMP 36.5–37; O2SAT 91–99
[2016-10-30] MEDS: MoRPHine SULFATE 4 MG/ML 1 ML CARP\\VIAL IV PRN ×2 (04:41→12:13)
[2016-10-30] MEDS: LEVOTHYROXINE 150 MCG TAB PO SCH (06:08)
[2016-10-30] MEDS: CLARINEX~ORDER AWAITING ACTION SCH ×3 (08:00→16:00)
[2016-10-30] MEDS: GABAPENTIN 800 MG TAB PO SCH ×2 (08:08→12:14)
[2016-10-30] MEDS: SUCRALFATE 1 GM TAB PO SCH ×3 (08:09→16:18)
[2016-10-30] MEDS: ASPIRIN 325 MG ECTAB PO SCH (08:09)
[2016-10-30] MEDS: ENOXAPARIN 40 MG/0.4 ML SYR SC SCH (08:09)
[2016-10-30] MEDS: ROSUVASTATIN CALCIUM 10 MG TAB PO SCH (08:09)
[2016-10-30] MEDS: CITALOPRAM 40 MG TAB PO SCH (08:10)
[2016-10-30] MEDS: HYDROCODONE/ACETAMI 10/325 TAB PO PRN (08:14)
[2016-10-30] MEDS: INSULIN ASPART 100 UNITS/ML 3 ML PEN SC SCH ×3 (08:19→17:28)
[2016-10-30] MEDS: INSULIN GLARGINE SOLOSTAR 100 UNITS/ML 3 ML PEN SC SCH (08:20)
[2016-10-30] MEDS ORDERED: PERFLUTREN LIPID MICROSPHERE (DEFINITY) IV ONE (08:34)
--- NOTE | 2016-10-30 10:55 | ECHOCARDIOGRAM REPORT ---
*NOTICE TO RECEIVING [employer] [employer] This information is strictly Confidential and protected under [place] law. [place] law prohibits you from making any further disclosure of this information unless further disclosure is expressly permitted by the written consent of the person to whom it pertains or is authorized by law. A general authorization for the release of medical or other information is not sufficient for this purpose. Hospital accepts no responsibility if the information is made available to any other person, INCLUDING THE PATIENT. Interpretation Summary * Name: SOCRATES JUDD Study Date: 10/30/2016 07:12 AM BP: 110/72 mmHg * Patient Location: C.2T\S\E220\S\1 HR: 66 * : 1965 (M/d/yyyy) Gender: Female Height: 64 in * Age: 50 yrs Ethnicity: CA Weight: 235 lb * Ordering Physician: Violette Aldrich * Performed By: Maru Garber * * Reason For Study: NUMBNESS, TINGLING * BSA: 2.1 m2 * -- Conclusions -- * Normal LV chamber size with mild concentric LVH. * Normal LV systolic function, EF 60-65%. * No segmental left ventricular wall motion abnormalities are noted. * Grade I diastolic dysfunction. * No significant valvular pathology. * The interatrial septum is intact with no evidence for an atrial septal defect. * Injection of contrast documented no interatrial shunt. Procedure Details * A complete two-dimensional transthoracic echocardiogram was performed (2D, M-mode, Doppler and color flow Doppler). * The study was technically difficult. * There were technical limitations due to patient'sbody habitus * A saline contrast injection was performed to assess for cardiac shunting. * The injection was performed through an intravenous line in the right arm. * The attending nurse who injected the saline contrast was ROSA SOLANO RN. * A total of 20 cc of agitated saline was given. * A contrast injection of Definity was performed to improve assessment of LV function. * Contrast was injected into an intravenous site in the right arm. * One vial of Definity ultrasound contrast was diluted in normal saline to a total volume of 10 ml. A total of '3' ml of solution was administered during imaging. * Lot # [id number] of Definity utilized for procedure. * Expiration date 11/14. * The attending nurse who injected the contrast agent was ROSA SOLANO RN. Left Ventricle * The left ventricle is normal in size. * There is mild concentric left ventricular hypertrophy. * Ejection Fraction = 60-65%. * Left ventricular systolic function is normal. * No segmental left ventricular wall motion abnormalities are noted. * The left ventricular wall motion is normal. Right Ventricle * The right ventricular cavity size is normal (basal dimension <4.2 cm in right ventricular apical 4-chamber view). * The right ventricular systolic function is normal as assessed by tricuspid annular plane systolic excursion (TAPSE) (normal >1.5 cm). Atria * The left atrial size is normal. * Right atrial size is normal. * The interatrial septum is intact with no evidence for an atrial septal defect. * Injection of contrast documented no interatrial shunt. Mitral Valve * The mitral valve is normal in structure and function. Tricuspid Valve * The tricuspid valve is normal in structure and function. Aortic Valve * The aortic valve is normal in structure and function. Pulmonic Valve * The pulmonary valve is not well seen, but the Doppler examination is normal without significant regurgitation or stenosis. Great Vessels * The aortic root is normal size. Pericardium/Pleural * There is no pericardial effusion. Left Ventricular Diastolic Function * Grade I diastolic dysfunction, (abnormal relaxation pattern). MMode 2D Measurements and Calculations IVSd 1.3 cm IVSs 1.8 cm LVIDd 4.0 cm LVIDs 2.8 cm LVPWd 1.4 cm LVPWs 2.0 cm IVS/LVPW 0.94 FS 29.2 % EDV(Teich) 68.7 ml ESV(Teich) 29.8 ml EF(Teich) 56.6 % EDV(cubed) 62.5 ml ESV(cubed) 22.2 ml EF(cubed) 64.5 % % IVS thick 37.8 % % LVPW thick 42.2 % LV mass(C)d 200.6 grams LV mass(C)dI 95.8 grams/m\S\2 LV mass(C)s 227.7 grams LV mass(C)sI 108.7 grams/m\S\2 CO(Teich) 2.5 l/min CI(Teich) 1.2 l/min/m\S\2 SV(Teich) 38.9 ml SI(Teich) 18.6 ml/m\S\2 CO(cubed) 2.6 l/min CI(cubed) 1.3 l/min/m\S\2 SV(cubed) 40.3 ml SI(cubed) 19.3 ml/m\S\2 ACS 1.6 cm asc Aorta Diam 3.3 cm LVOT diam 1.8 cm LVOT area 2.5 cm\S\2 LVAd ap4 24.4 cm\S\2 LVLd ap4 7.6 cm EDV(MOD-sp4) 65.8 ml LVAs ap4 13.8 cm\S\2 LVLs ap4 5.7 cm ESV(MOD-sp4) 28.0 ml EF(MOD-sp4) 57.4 % LVAd ap2 23.8 cm\S\2 LVLd ap2 8.0 cm EDV(MOD-sp2) 58.8 ml LVAs ap2 13.7 cm\S\2 LVLs ap2 6.5 cm ESV(MOD-sp2) 24.8 ml EF(MOD-sp2) 57.8 % CO(MOD-sp4) 2.5 l/min CI(MOD-sp4) 1.2 l/min/m\S\2 SV(MOD-sp4) 37.8 ml SI(MOD-sp4) 18.0 ml/m\S\2 CO(MOD-sp2) 2.2 l/min CI(MOD-sp2) 1.1 l/min/m\S\2 SV(MOD-sp2) 34.0 ml SI(MOD-sp2) 16.2 ml/m\S\2 Doppler Measurements and Calculations MV E max francisca 64.5 cm/sec MV A max francisca 69.8 cm/sec MV E/A 0.92 MV dec time 0.19 sec Ao V2 max 144.3 cm/sec Ao max PG 8.3 mmHg Ao max PG (full) 4.0 mmHg ALBINA(V,A) 1.8 cm\S\2 ALBINA(V,D) 1.8 cm\S\2 LV V1 max PG 4.3 mmHg LV V1 max 103.8 cm/sec PA V2 max 77.1 cm/sec PA max PG 2.4 mmHg
--- NOTE | 2016-10-30 15:30 | Neurology Progress Notes ---
Neurology Progress Note Date of Service Oct 30, 2016. Mandi Mcgee is a 50 year old female with COPD, ongoing tobacco abuse, chronic pain- on narcotics, fibromyalgia, fatty liver, reflux, hyperlipidemia, hypothyroidism , depression, Last night, last night she went to bed with a headache and woke with headache which was pounding. usually when she gets headaches she takes Excedrin and it is relieved. She then had tingling around her mouth and on both sides of her check, she also had numbness and tingling in her hands with no weakness. She also had nausea. She was given aspirin and morphine in the ED which helped and the numbness and tingling resolved. she has also been getting some blurred double vision which comes and goes. She does wear glasses and she know she needs an eye exam. denies CP, SOB, abdominal pain, current weakness, numbness tingling, N, V. She has a neurostimulator which can be turned off if she needs the MRI. She gave the instructions to the i&c tech if needed. She also has numbness and tingling in her LE but no more than normal with her back issues. Today she has a headache but she really wants to go home. She states she takes Excedrin at least 3-4 time per week but it does relieve the headaches. Imaging and tests done and reviewed. Objective Date Time Temp Pulse Resp B/P (MAP) Pulse Ox O2 Delivery O2 Flow Rate FiO2 10/30/16 12:00 99 Room Air 10/30/16 11:40 36.5 79 18 132/74 (93) 99 10/30/16 08:04 36.6 70 18 103/64 (77) 91 Room Air 10/30/16 08:00 91 Room Air 10/30/16 04:31 36.7 66 18 110/72 (85) 97 Room Air 10/30/16 04:00 97 Room Air 10/30/16 00:00 95 Room Air 10/29/16 23:26 36.6 80 18 114/72 (86) 95 Room Air 10/29/16 20:13 36.6 80 18 128/82 (97) 94 Room Air 10/29/16 20:00 Room Air 10/29/16 16:00 Room Air 10/29/16 15:34 36.5 66 18 118/76 (90) 97 Room Air Last 24 Hours Test 10/29/16 16:13 10/29/16 20:12 10/29/16 22:15 10/30/16 06:38 Bedside Glucose 151 mg/dl 241 mg/dl 225 mg/dl 152 mg/dl Test 10/30/16 11:13 10/30/16 11:55 Bedside Glucose 175 mg/dl Imaging: MRI brain without-No acute intracranial abnormality. TTE- Normal LV chamber size with mild concentric LVH. * Normal LV systolic function, EF 60-65%. * No segmental left ventricular wall motion abnormalities are noted. * Grade I diastolic dysfunction. * No significant valvular pathology. * The interatrial septum is intact with no evidence for an atrial septal defect. * Injection of contrast documented no interatrial shunt. Exam: Physical Exam: Constitutional: appearance nourished, healthy and normal Ears, Nose, Mouth and Throat: mucous membranes moist, no injection and skin normal, eyes normal Cardiovascular: normal S-1 and S-2 and regular rate and rhythm Respiratory: clear to auscultation (CTA) and no rales, rhonchi or wheeze Musculoskeletal: non pitting peripheral edema Skin: no stigmata of neurocutaneous disease noted and normal and intact Eyes: extraocular muscles intact (EOMI) and pupils equal, round and reactive to light (PERRL) NEUROLOGIC EXAMINATION: Mental status: Alert and interactive Oriented to full date and location Oriented to person Speech fluent with no evidence of aphasia Cranial Nerves smile eye brow raise symmetric, tongue midline Coordination: Romberg absent Gait/Stance: Posture normal. Gait normal: with steady with steps, base, turning, heel and toe walking and tandem gait. Motor: Negative for pronator drift of out stretched arms with eyes closed. Strength: Normal - 5/5 all extremities Current Inpatient Medications Medications (Trade) Dose Ordered Sig/Shreya Route Start Time Stop Time Status Last Admin Dose Admin Nicotine (Nicoderm Cq 14MG Patch) 1 patch HS TD 10/29/16 21:00 11/28/16 20:59 10/29/16 22:18 1 PATCH Miscellaneous (Remove Nicoderm Patch) 1 ea HS N/A 10/29/16 21:00 11/28/16 20:59 10/29/16 22:09 1 EA Enoxaparin Sodium (Lovenox Inj) 40 mg Q24H SC 10/29/16 09:00 11/28/16 08:59 10/30/16 08:09 40 MG Nitroglycerin (Nitrostat Tab) 0.4 mg UD PRN SL 10/28/16 23:30 11/27/16 23:29 Citalopram Hydrobromide (celeXA TAB) 40 mg QAM PO 10/29/16 09:00 11/28/16 08:59 10/30/16 08:10 40 MG Fluticasone Propionate (Flonase Nasal [place]) 2 sprays QPM RUBÉN 10/29/16 21:00 11/28/16 20:59 Gabapentin (Neurontin Tab) 800 mg TID PO 10/29/16 09:00 11/28/16 08:59 10/30/16 12:14 800 MG Acetaminophen/ Hydrocodone Bitart (Home 10/325 Tab) 1 tab TID PRN PO 10/28/16 23:30 11/11/16 23:29 10/30/16 08:14 1 TAB Levothyroxine Sodium (Synthroid Tab) 150 mcg DAILYBB PO 10/29/16 06:00 11/28/16 06:59 10/30/16 06:08 150 MCG Ranitidine HCl (zANTac TAB) 150 mg BID PRN PO 10/28/16 23:30 11/27/16 23:29 Rosuvastatin Calcium (Crestor Tab) 5 mg QAM PO 10/29/16 09:00 11/28/16 08:59 10/30/16 08:09 5 MG Sucralfate (Carafate Tab) 1 gm AC PO 10/29/16 07:00 11/28/16 06:59 10/30/16 12:14 1 GM Tiotropium [place] (Spiriva Handihaler Inhaler) 1 puff DAILY PRN INH 10/28/16 23:30 11/27/16 23:29 Miscellaneous Information (Order Awaiting Action) 1 ea QS N/A 10/29/16 08:00 11/28/16 07:59 Morphine Sulfate (MoRPHine SULFATE INJ) 4 mg Q6H PRN IV 10/28/16 23:30 11/11/16 23:29 10/30/16 12:13 4 MG Ondansetron HCl (Zofran Inj) 4 mg Q6H PRN IV 10/28/16 23:30 11/27/16 23:29 10/30/16 12:13 4 MG Insulin Glargine (Lantus Solostar Pen) 40 units BID SC 10/29/16 09:00 11/28/16 08:59 10/30/16 08:20 40 UNITS Insulin Aspart (novoLOG ASPART) SLIDING SCALE If C... ACHS SC 10/29/16 07:00 11/28/16 06:59 10/30/16 12:20 3 UNITS Glucose (Glucose 40% Gel) 15-30 GRAMS 15 GRAMS... UD PRN PO 10/28/16 23:30 11/27/16 23:29 Glucose (Glucose Chew Tab) 4-8 Tablets 4 Tabl... UD PRN PO 10/28/16 23:30 11/27/16 23:29 Dextrose (Dextrose 50% 50ML Syringe) 25-50ML OF 50% DW IV FOR... UD PRN IV 10/28/16 23:30 11/27/16 23:29 Glucagon (Glucagon Inj) 1 mg UD PRN SQ 10/28/16 23:30 11/27/16 23:29 Miscellaneous (Iv Fluids Completed) 1 ea PRN PRN N/A 10/28/16 23:45 10/28/17 23:44 Aspirin (Ecotrin Tab) 325 mg QAM PO 10/29/16 09:00 11/28/16 08:59 10/30/16 08:09 325 MG Lorazepam (Ativan Inj) 0.5 mg Q1H PRN IV 10/29/16 05:00 11/28/16 04:59 10/29/16 20:23 0.5 MG Oxycodone HCl (Oxycontin Tab) 10 mg QD@16 PO 10/29/16 16:30 11/12/16 16:29 10/29/16 16:27 10 MG Impression 50 year old female headache with numbness tingling around mouth bilaterally cheeks, hand numbness tingling Plan 1. CT head - no stroke or lesion 2. MRI brain - patient can turn off neuro stimulatory if needed-MRI completed with no stroke seen 3. history of migraine headaches 4. currently being taper from narcotics after stimulator was placed 5. gabapentin currently 800 mg TID would continue 6. TTE no ASD 7. hypercoag labs ordered and pending 8. may need headache prophy added to current medication for better control would try Mg++ 400 mg am and riboflavin 400 mg am. Will see her as an outpatient if this does not help. She needs to stop smoking and keep well hydrated. 9. call office for an appointment 2-3 weeks after discharge from hospital 10. carotid doppler for completeness I have seen and discussed above patient with Dr Violette Marshall, neurology Pt seen examined. In spite of 3 hours of "stuttering" MRI no acute abnl. MRA neck head was cancelled. Rec carotid us, as outpt, ok if need be. Likely this was a complex migraine. No prophylaxis at present, pt can discuss with Dr Dempsey who follows her as outpt. Smoking cessation and good control of vascular risk factors. I might normally rec asa, but pt had active PUD in August of this year. ALMA Marshall MD
[2016-10-30] MEDS: OXYCODONE HCL 10 MG TABCR (OXYCONTIN) PO SCH (16:18)
--- NOTE | 2016-10-30 17:37 | Discharge Instructions ---
Discharge Instructions Date of Service Oct 30, 2016. Admission Reason for Admission: Tia, Transient Ischemic Attack Discharge Discharge Diagnosis / Problem: HEADACHE , NUMBNESS OF FACE /POSSIBLE MIGRAIN ATTACK Discharge Goals Goal(s): Decrease discomfort, Diagnostic testing Activity Recommendations Activity Limitations: resume your previous activity . Instructions / Follow-Up Instructions / Follow-Up HOSPITAL FOLLOW UP : 11/03/2016 12: 45 PM Irma Fry MD General Internal Medicine [facility] NEUROLOGY FOLLOW UP WITH DR BAIG IN 3-4 WEEKS NEEDS CAROTID DOPPLER NEEDS TO BE DONE OUT PATINE TO ASSESS FOR POSSIBLE CAROTID STENOSIS Current Hospital Diet Patient's current hospital diet: Diabetes Type 2 Diet, AHA Diet (Heart Healthy) Discharge Diet Recommended Diet: Diabetes Type 2 Diet Pending Studies Studies pending at discharge: yes List of pending studies: RESULT OF HYPERCOAGULABLE WORK UP Medical Emergencies . Who to Call and When: Medical Emergencies: If at any time you feel your situation is an emergency, please call 911 immediately. . Non-Emergent Contact Non-Emergency issues call your: Primary Care Provider . . "Provider Documentation" section prepared by Lillian Bernal. . VTE Core Measure Inpt VTE Proph given/why not?: Leno Elias, SCD's
[2016-10-30] MEDS ORDERED: ASPEC81 PO (17:38)
--- NOTE | 2016-10-30 17:43 | Progress Note ---
Internal Med Progress Note Date of Service: Oct 30, 2016. Provider Documentation: SUBJECTIVE: denies of any headache or discomfort no visual changed feels much better eager to go home OBJECTIVE: Vital Signs-as noted below Exam: General-no sign of distress Eyes-sclera non icteric ENT-NAd Neck-no JVD Lungs-CTA Heart-regular S1/S2 Abdomen-soft, non tender Extremities-no edema or rash Neuro-AAO x3, no focal deficit Lab data as noted below. ASSESSMENT & PLAN: This is a 50 year old female with a PMH of insulin dependent DM2, fibromyalgia, depression/anxiety, COPD, chronic pain s/p neurostimulator, presented with a headache as well as some numbness/tingling of the L side of her face HEADACHE /NUMBNESS OF LEFT SIDE OF FACE symptom has resolved possible due to Migraine no evidence of CVA . CT head negative for acute change MRI of brain -no intracranial pathology appreciate Neurology eval recommend Carotid Doppler for completeness Aspirin 81 mg for primary prevention out pt follow up with Dr Dempsey , pt already established care with neurology Insulin Dependent DM2 continue Lantus 40 units BID continue insulin sliding scale Depression/Anxiety continue home medications Hypothyroidism continue Synthroid DVT ppx Lovenox FULL CODE DISPOSITION DISCHARGE HOME TODAY Vital Signs: Date Time Temp Pulse Resp B/P (MAP) Pulse Ox O2 Delivery O2 Flow Rate FiO2 10/30/16 15:45 37.0 74 18 112/76 (88) 96 10/30/16 12:00 99 Room Air 10/30/16 11:40 36.5 79 18 132/74 (93) 99 10/30/16 08:04 36.6 70 18 103/64 (77) 91 Room Air 10/30/16 08:00 91 Room Air 10/30/16 04:31 36.7 66 18 110/72 (85) 97 Room Air 10/30/16 04:00 97 Room Air 10/30/16 00:00 95 Room Air 10/29/16 23:26 36.6 80 18 114/72 (86) 95 Room Air 10/29/16 20:13 36.6 80 18 128/82 (97) 94 Room Air 10/29/16 20:00 Room Air Lab Results: Results Past 24 Hours Test 10/29/16 20:12 10/29/16 22:15 10/30/16 06:38 10/30/16 11:13 Range/Units Bedside Glucose 241 225 152 175 70-90 mg/dl Test 10/30/16 11:55 10/30/16 16:13 Range/Units Bedside Glucose 224 70-90 mg/dl
--- NOTE | 2016-10-30 17:44 | Discharge Summary ---
Discharge Summary Date of Service Oct 30, 2016. Discharge Summary Admission Date: Oct 28, 2016 at 23:03 Discharge Date: Oct 30, 2016 Discharge Disposition: Home Principal Diagnosis: HEADACHE , NUMBNESS OF FACE /POSSIBLE MIGRAINE ATTACK Procedures: MRI BRAIN : IMPRESSION: No acute intracranial abnormality. ECHO : Normal LV chamber size with mild concentric LVH. Normal LV systolic function, EF 60-65%. No segmental left ventricular wall motion abnormalities are noted. Grade I diastolic dysfunction. No significant valvular pathology. CT HEAD WITH OUT CONTRAST : IMPRESSION: 1. No acute intracranial pathology. Consultations: [facility] NEUROLOGY Medication Reconciliation New Medications: Aspirin (Aspirin EC Low Dose) 81 Mg Ectab 1 TAB PO DAILY for 30 Days, #30 TABS 2 Refills TAKE WITH FULL STOMACH Continued Medications: Albuterol Sulfate (Proair Respiclick) 108 Mcg/Act Aer 2 PUFF INH Q4 PRN for SOB/Wheezing Cholecalciferol (Vitamin D3) 2,000 Unit Tab 1 TAB PO QPM Citalopram (Citalopram Hydrobromide) 40 Mg Tab 40 MG PO QAM Desloratadine (Desloratadine) 5 Mg Tab 5 MG PO QAM Epinephrine (Epipen) 0.3 Mg/0.3 Ml Inj 0.3 MG IM UD PRN, INJ INJECT INTO THIGH NEEDED FOR SEVERE ALLERGIC REACTION. Fluticasone Propionate (Fluticasone Propionate) 120 Sprays/6000 Mcg Inha 2 SPRAYS RUBÉN QPM Gabapentin (Gabapentin) 800 Mg Tab 800 MG PO TID Home O2 Therapy (Oxygen) Gas 2 LITER NA PRN use during all periods of sleep Hydrocodone/Acetaminophen ([place] 10/325 Tab) 1 Tab Tab 1 TAB PO TID for WEANING OFF OXY CODONE, TAB Insulin Glargine (Lantus Solostar) 100 Unit/Ml Inj 75 UNITS SQ QPM Insulin Lispro (Human) (Humalog) 100 Unit/Ml Inj 55 UNITS SC TID-QID +SLIDING SCALE Ipratropium-Albuterol (Duoneb) 3 Ml Nebu 1 TREATMENT INH QID PRN for SOB/Wheezing, INHA Levothyroxine Sodium (Levothyroxine Sodium) 150 Mcg Tab 1 TAB PO QAM Ondansetron Hcl (Zofran) 4 Mg Tab 4 MG PO Q8 PRN for Nausea, TAB Oxycodone HCl (Oxycodone HCl ER) 10 Mg Tab 10 MG PO QPM Oyster Shell (Calcium) 500 Mg Tab 1 TAB PO QPM Potassium Chloride (Micro-K Ext Rel) 10 Meq Capcr 10 MEQ PO DAILY PRN for Muscle Spasms Ranitidine HCl (Ranitidine HCl) 150 Mg Tab 150 MG PO BID PRN for Indigestion Rosuvastatin Calcium (Crestor) 5 Mg Tab 5 MG PO QAM Sucralfate (Carafate) 1 Gm Tab 1 GM PO TID Tiotropium [place] (Spiriva Handihaler) 30 Puff/540 Mcg Aerp 1 CAP INH DAILY PRN for Shortness of Breath [juice plus] () 1 PKT PO DAILY orchard + garden blends Admission Information HPI (per Admitting provider): DATE OF ADMISSION: 10/28/2016 PRIMARY CARE PHYSICIAN: Dr. Fry. CHIEF COMPLAINT: Headache, numbness, face, hands, feet. HISTORY OF PRESENT ILLNESS: History obtained from patient and records. Medical history significant for COPD, ongoing tobacco abuse, chronic pain/ fibromyalgia on narcotics, fatty liver as per records, GERD, hyperlipidemia, hypothyroidism, depression. DM 2, insulin requiring. Recent confinement in September 2010 for a COPD exacerbation. Last night, patient noted burning headache at the base of the skull along with tingling on the left side of her face, both hands and both feet; tingling. No chest pain. Admits to some shortness of breath. No unusual cough symptoms. Patient given aspirin in the Emergency Room. Numbness improving. MEDICAL HISTORY: As above. SURGERIES: Total abdominal hysterectomy, oophorectomy, cholecystectomy, appendectomy, tonsillectomy, back surgery, section. HOME MEDICATIONS: Include levothyroxine, Zofran, oxycodone, Micro-K, Crestor ranitidine, sucralfate, Spiriva, gabapentin, Vicodin, DuoNeb, Lantus, Humalog, ProAir, vitamin D3, citalopram, loratadine, EpiPen, fluticasone. ALLERGIES: AZITHROMYCIN, OMEPRAZOLE, DYE, PEANUTS, SHELLFISH. FAMILY HISTORY: Diabetes. PERSONAL AND SOCIAL HISTORY: A pack daily. No chronic intake of alcoholic beverages. 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 Physical Exam (per Admitting): REVIEW OF SYSTEMS: As per HPI, all other ROS negative. PHYSICAL EXAMINATION: VITAL SIGNS: Blood pressure was noted to be 161/89later 130/80, pulse rate 80, RR 18, temperature 36.8, sats 94 on room air. GENERAL: Noted to be obese, slightly anxious, no respiratory distress. Uncomfortable. SKIN: Normal color. HEENT: [place] palpebral conjunctivae. Moist mucosa. NECK: Short neck. LUNGS: Decreased breath sounds. HEART: Regular rate and rhythm. ABDOMEN: Soft. EXTREMITIES: No edema. no tenderness NEUROLOGIC: No gross focality. Hospital Course This is a 50 year old female with a PMH of insulin dependent DM2, fibromyalgia, depression/anxiety, COPD, chronic pain s/p neurostimulator, presented with a headache as well as some numbness/tingling of the L side of her face HEADACHE /NUMBNESS OF LEFT SIDE OF FACE symptom has resolved possible due to Migraine no evidence of CVA . CT head negative for acute change MRI of brain -no intracranial pathology appreciate Neurology eval recommend Carotid Doppler for completeness Aspirin 81 mg for primary prevention out pt follow up with Dr Baig , pt already established care with neurology Insulin Dependent DM2 continue Lantus 40 units BID continue insulin sliding scale Depression/Anxiety continue home medications Hypothyroidism continue Synthroid DVT ppx Lovenox FULL CODE DISPOSITION DISCHARGE HOME TODAY Discharge Instructions Discharge Instructions Date of Service Oct 30, 2016. Admission Reason for Admission: Tia, Transient Ischemic Attack Discharge Discharge Diagnosis / Problem: HEADACHE , NUMBNESS OF FACE /POSSIBLE MIGRAIN ATTACK Discharge Goals Goal(s): Decrease discomfort, Diagnostic testing Activity Recommendations Activity Limitations: resume your previous activity . Instructions / Follow-Up Instructions / Follow-Up HOSPITAL FOLLOW UP : 11/03/2016 12: 45 PM Irma Fry MD General Internal Medicine [facility] NEUROLOGY FOLLOW UP WITH DR BAIG IN 3-4 WEEKS NEEDS CAROTID DOPPLER NEEDS TO BE DONE OUT PATINE TO ASSESS FOR POSSIBLE CAROTID STENOSIS Current Hospital Diet Patient's current hospital diet: Diabetes Type 2 Diet, AHA Diet (Heart Healthy) Discharge Diet Recommended Diet: Diabetes Type 2 Diet Pending Studies Studies pending at discharge: yes List of pending studies: RESULT OF HYPERCOAGULABLE WORK UP Medical Emergencies . Who to Call and When: Medical Emergencies: If at any time you feel your situation is an emergency, please call 911 immediately. . Non-Emergent Contact Non-Emergency issues call your: Primary Care Provider . . "Provider Documentation" section prepared by Lillian Bernal. . VTE Core Measure Inpt VTE Proph given/why not?: Leno Elias, GIRISH's
[2016-10-31] MEDS ORDERED: MAGNESIUM OXIDE 400 MG TAB PO SCH (09:00)
[2016-11-05 19:38] LABS: ANTITHROMBINIII ACTIVITY** 95 % activity (80-120); B2 GLYCOPROTEIN IGA <9 SAU (<=20); B2 GLYCOPROTEIN IGG <9 SGU (<=20); B2 GLYCOPROTEIN IGM <9 SMU (<=20); LUPUS ANTICOAGULANT** TC36573X Negative (Negative); PROTEIN C ACTIVITY** TC 1777X 141 % (70-180); PROTEIN S ACT(FUNCT)**1779X 86 % (60-140)
--- NOTE | 2016-11-10 10:18 | EDITING REQUIRED CODING QUERY ---
CQSUPPORTING DIAGNOSIS NEEDED A supporting diagnosis is required for the test/procedure performed on this patient in order for us to be reimbursed by the patient's insurance. Please provide a supporting diagnosis for the following test/procedure listed below next to the test name along with your signature. *If there is no additional diagnosis for this patient that would support the following test/procedure please document that below next to the test/procedure. Test(s)/Procedure(s) that require a supporting diagnosis: DOS 10/30/16 BIOMARK OVERVIEW -- FACTOR 5 LEIDEN FACTOR 2 MUTATION GENE TIA symptom , rule out hypercoagulable status causing increased risk for CVA Provider Signature: Lillian Bernal Date: 11/10/2016 Thank you Georgiana Antonio [facility] Information Management Once completed, please kindly fax back to [phone] For questions please call [phone]
[2016-12-10] MEDS ORDERED: juice plus PO (03:16)
[2016-12-10] MEDS ORDERED: ALBU18002 INH (10:12)
[2016-12-10] MEDS ORDERED: POTA10CA28 PO (10:12)
[2016-12-10] MEDS ORDERED: SPRIN/30 INH (15:17)
[2016-12-10] MEDS ORDERED: ROSU5TAB PO (15:17)
[2016-12-10] MEDS ORDERED: EPP3/2 IM (17:13)
== END 2016-10-30 20:20 | disposition home or self-care (01) ==
LOC: EDBD 19:47 → C.EDA 19:48 → C.2T 23:03 → ENRESERV 23:12
PROVIDERS: ADMIT Family Medicine; ATTEND Hospitalist
DX: R51 Headache (principal); R20.0 Anesthesia of skin; R47.01 Aphasia; T78.40XA Allergy, unspecified, initial encounter; I10 Essential (primary) hypertension; E11.9 Type 2 diabetes mellitus without complications; K21.9 Gastro-esophageal reflux disease without esophagitis; E78.5 Hyperlipidemia, unspecified; E03.9 Hypothyroidism, unspecified; Z86.73 Personal history of transient ischemic attack (TIA), and cerebral infarction without residual deficits; F17.200 Nicotine dependence, unspecified, uncomplicated; Z79.4 Long term (current) use of insulin; J44.9 Chronic obstructive pulmonary disease, unspecified; Z90.710 Acquired absence of both cervix and uterus; Z90.49 Acquired absence of other specified parts of digestive tract; Z90.89 Acquired absence of other organs; E66.9 Obesity, unspecified; G89.29 Other chronic pain; Z79.82 Long term (current) use of aspirin; M79.7 Fibromyalgia; Z79.899 Other long term (current) drug therapy; H53.143 Visual discomfort, bilateral; R47.82 Fluency disorder in conditions classified elsewhere; D68.51 Activated protein C resistance

== ENCOUNTER 2016-12-10 18:13 | Emergency (ER) | payer OTHER ==
[~2016-12-10] VITALS: Ht 162.6 cm; Wt 107.0 kg
[~2016-12-10 18:13] MED LIST changes: +ALBU18002 INH; +ASPEC81 PO; +EPP3/2 IM; -GLCSR/500 PO; +POTA10CA28 PO; +ROSU5TAB PO; +SPRIN/30 INH; +juice plus PO
[2016-12-10 18:16] VITALS: TEMP 36.7; Ht 162.6 cm; Wt 107.0 kg
[2016-12-10] MEDS ORDERED: SODIUM CHLORIDE 0.9% 1000ML 1,000 ML IV ONE (18:28)
[2016-12-10] MEDS ORDERED: ALBUT/IPRATROP 3MG/0.5MG NEB 3 ML VIAL INH STA (18:33)
[2016-12-10] MEDS ORDERED: SODIUM CHLORIDE 0.9% 1000ML 1,000 ML IV STA (19:03)
[2016-12-10 19:10] LABS: BASO % 0.1 %; BASO ABS # 0.01 K/uL (0-0.2); COMPLETE YES; HEMATOCRIT 47.9 % (37-47); IG% 0.3 %; LYMPH % 8.6 %; LYMPH ABS # 1.25 K/uL (1.2-3.4); MEAN CELL VOLUME 90.7 fL (80-100); MEAN CORPUSCULAR HEMOGLOBIN 29.4 pg (25-34); MEAN CORPUSCULAR HGB CONC 32.4 g/dl (32-36); MEAN PLATELET VOLUME 12.4 fL (7.4-10.4); MONO % 3.2 %; NEUT % 87.8 %; PLATELET COUNT 266 K/uL (130-400); RED BLOOD COUNT 5.28 M/uL (4.2-5.4); WHITE BLOOD COUNT 14.61 K/uL (4.8-10.8)
[2016-12-10 19:13] VITALS: O2SAT 96
--- NOTE | 2016-12-10 19:15 | DIAGNOSTIC IMAGING REPORT ---
CHEST ONE VIEW PORTABLE CLINICAL HISTORY: Sepsis dyspnea COMPARISON STUDY: A1 2017 FINDINGS: The bones soft tissues and hemidiaphragms are normal. The cardiomediastinal silhouette is normal. The lungs are clear. The pulmonary vasculature is normal. IMPRESSION: Negative chest. The above report was generated using voice recognition software. It may contain grammatical, syntax or spelling errors. Electronically signed by: Wiley Mariano M.D. 12/10/2016 7:13 PM Dictated Date/Time: 12/10/2016 7:13 PM
--- NOTE | 2016-12-10 19:20 | EMERGENCY ROOM VISIT NOTE ---
History Report prepared by Annmarie: Lucia Olvera Under the Supervision of: Dr. Nikko Jack D.O. 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 The patient has been sick with cold symptoms and saw her PCP for this last week. She was placed on amoxicillin and steroids at that time. She returned to her PCP yesterday because she was still wheezing and her symptoms had worsened. Her PCP increased her steroid dose at that time and advised the patient to use a pulse ox. The patient states that today her O2 saturation was 87%. She has also been trying to check her blood sugar but it keeps telling her that it can't read it because it is too high. She states that means it is at least over 600. She has taken multiple doses of insulin today, but her blood sugar is still elevated. The patient denies chest pain, swelling in her legs, and any personal history of blood clots. She rates her discomfort as a 4/10 in severity. 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 A total of 10 systems reviewed and were otherwise negative. Past Medical & Surgical Medical Problems: (1) Benign essential hypertension (2) Chronic low back pain (3) Degenerative disc disease (4) Depression (5) Diabetes mellitus type 2 (6) Fibromyalgia (7) Gastroesophageal reflux disease (8) Hyperlipidemia (9) Hypothyroidism (10) TIA (transient ischemic attack) Family History FHx: cancer Social History Smoking Status: Never Smoker Drug Use: none Marital Status: Housing Status: lives with family Occupation Status: employed Current/Historical Medications Scheduled Albuterol Sulfate (Proair Respiclick), 2 PUFFS INH QID Cefuroxime Axetil (Cefuroxime Axetil), 500 MG PO BID Cholecalciferol (Vitamin D3), 5,000 INTER.UNIT PO DAILY Citalopram (Citalopram Hydrobromide), 40 MG PO QAM Desloratadine (Desloratadine), 5 MG PO QAM Gabapentin (Gabapentin), 800 MG PO BID Insulin Glargine (Lantus Solostar), 50 UNITS SQ BID Insulin Lispro (Human) (Humalog Kwikpen), 55 UNITS SC ACHS Levothyroxine Sodium (Synthroid), 150 MCG PO DAILY Nicotine (Nicotine), 1 PATCH TOP DAILY Oyster Shell (Calcium), 1 TAB PO QPM Potassium Chloride (Micro-K Ext Rel), 10 MEQ PO DAILY Prednisone (Prednisone), 20 MG PO UD Rosuvastatin Calcium (Crestor), 5 MG PO QAM [juice plus], 1 PKT PO DAILY Scheduled PRN Albuterol Sulf (Proventil 0.083% 2.5MG/3ML), 2.5 MG INH Q4H PRN for Wheezing Benzonatate (Tessalon Perles), 100 MG PO TID PRN for Cough Epinephrine (Epipen), 0.3 MG IM UD PRN for ALLERGIC REACTION Hydrocodone/Acetaminophen ([place] 10/325 Tab), 1 TAB PO Q8 PRN for Pain Ondansetron Hcl (Zofran), 4 MG PO Q6H PRN for Nausea Oxycodone HCl (Oxycodone HCl ER), 10 MG PO HS PRN for Pain Ranitidine HCl (Ranitidine HCl), 150 MG PO BID PRN for Heartburn Tiotropium [place] (Spiriva Handihaler), 1 CAP INH DAILY PRN for Shortness of Breath Allergies Coded Allergies: Shellfish (Verified Allergy, Severe, ANAPHYLAXIS, 10/28/16) Iodinated Contrast Media (Verified Allergy, Unknown, ANAPHYLAXIS, 10/28/16) Omeprazole (Verified Allergy, Unknown, ANAPHYLAXIS, 10/28/16) Peanut (Verified Allergy, Unknown, LIPS SWELL FROM PEANUT SHELL DUST, ) Egg (Verified Adverse Reaction, Mild, DYSPEPSIA, N/V, 10/28/16) Erythromycin (Verified Adverse Reaction, Unknown, GI UPSET, 10/28/16) Physical Exam Vital Signs Date Time Temp Pulse Resp B/P (MAP) Pulse Ox O2 Delivery O2 Flow Rate FiO2 12/10/16 21:05 70 16 133/65 94 12/10/16 20:12 98 18 140/86 93 Room Air 12/10/16 19:13 96 Room Air 12/10/16 18:16 36.7 112 20 182/82 93 Physical Exam GENERAL: Patient is awake, alert, and in no acute distress. Patient is resting comfortably and showing no signs of anxiety EYES: The conjunctivae are clear. The pupils are round and reactive. EARS, NOSE, MOUTH AND THROAT: The nose is without any evidence of any deformity. Mucous membranes are moist tongue is midline NECK: The neck is nontender and supple. RESPIRATORY: Breath sounds are diminished throughout with mild tachypnea, expiratory wheezing in all garcía. CARDIOVASCULAR: Tachycardic but regular, no murmurs rubs or gallops normal S1 normal S2 GASTROINTESTINAL: The abdomen is soft. Bowel sounds are present in all quadrants. Abdomen is nontender MUSCULOSKELETAL/EXTREMITIES: There is no evidence of gross deformity full range of motion is noted in the hips and shoulders SKIN: There is no obvious evidence of any rash. There are no petechiae, pallor or cyanosis noted. NEUROLOGIC: Patient is awake alert and oriented x3 strength is symmetric patellar reflexes are 2+ bilaterally Medical Decision & Procedures ER Provider Diagnostic Interpretation: Radiology results as stated below per my review and radiologist interpretation: CHEST ONE VIEW PORTABLE CLINICAL HISTORY: Sepsis dyspnea COMPARISON STUDY: A1 2017 FINDINGS: The bones soft tissues and hemidiaphragms are normal. The cardiomediastinal silhouette is normal. The lungs are clear. The pulmonary vasculature is normal. IMPRESSION: Negative chest. The above report was generated using voice recognition software. It may contain grammatical, syntax or spelling errors. Electronically signed by: Wiley Mariano M.D. 12/10/2016 7:13 PM Dictated Date/Time: 12/10/2016 7:13 PM Laboratory Results 12/10/16 18:44 Red Blood Count 5.28, Mean Corpuscular Volume 90.7, Mean Corpuscular Hemoglobin 29.4, Mean Corpuscular Hemoglobin Concent 32.4, Mean Platelet Volume 12.4, Neutrophils (%) (Auto) 87.8, Lymphocytes (%) (Auto) 8.6, Monocytes (%) (Auto) 3.2, Eosinophils (%) (Auto) 0.0, Basophils (%) (Auto) 0.1, Neutrophils # (Auto) 12.83, Lymphocytes # (Auto) 1.25, Monocytes # (Auto) 0.47, Eosinophils # (Auto) 0.00, Basophils # (Auto) 0.01 12/10/16 18:44 Test 12/10/16 18:21 12/10/16 18:44 12/10/16 18:49 12/10/16 19:15 Bedside Glucose > 600 mg/dl (70-90) White Blood Count 14.61 K/uL (4.8-10.8) Red Blood Count 5.28 M/uL (4.2-5.4) Hemoglobin 15.5 g/dL (12.0-16.0) Hematocrit 47.9 % (37-47) Mean Corpuscular Volume 90.7 fL (80-100) Mean Corpuscular Hemoglobin 29.4 pg (25-34) Mean Corpuscular Hemoglobin Concent 32.4 g/dl (32-36) Platelet Count 266 K/uL (130-400) Mean Platelet Volume 12.4 fL (7.4-10.4) Neutrophils (%) (Auto) 87.8 % Lymphocytes (%) (Auto) 8.6 % Monocytes (%) (Auto) 3.2 % Eosinophils (%) (Auto) 0.0 % Basophils (%) (Auto) 0.1 % Neutrophils # (Auto) 12.83 K/uL (1.4-6.5) Lymphocytes # (Auto) 1.25 K/uL (1.2-3.4) Monocytes # (Auto) 0.47 K/uL (0.11-0.59) Eosinophils # (Auto) 0.00 K/uL (0-0.5) Basophils # (Auto) 0.01 K/uL (0-0.2) RDW Standard Deviation 43.9 fL (36.4-46.3) RDW Coefficient of Variation 13.3 % (11.5-14.5) Immature Granulocyte % (Auto) 0.3 % Immature Granulocyte # (Auto) 0.05 K/uL (0.00-0.02) Erythrocyte Sedimentation Rate 61 mm/hr (0-21) Prothrombin Time 10.4 SECONDS (9.0-12.0) Prothromb Time International Ratio 1.0 (0.9-1.1) Activated Partial Thromboplast Time 26.3 SECONDS (21.0-31.0) Partial Thromboplastin Ratio 1.0 Anion Gap 11.0 mmol/L (3-11) Est Creatinine Clear Calc Drug Dose 58.7 ml/min Estimated GFR () 51.4 Estimated GFR (Non- 44.3 BUN/Creatinine Ratio 10.2 (10-20) Calcium Level 9.2 mg/dl (8.5-10.1) Phosphorus Level 3.0 mg/dl (2.5-4.9) Magnesium Level 2.0 mg/dl (1.8-2.4) Total Bilirubin 0.3 mg/dl (0.2-1) Aspartate Amino Transf (AST/SGOT) 53 U/L (15-37) Alanine Aminotransferase (ALT/SGPT) 37 U/L (12-78) Alkaline Phosphatase 121 U/L (45-117) Total Creatine Kinase 59 U/L (26-192) Creatine Kinase MB 0.8 ng/ml (0.5-3.6) Creatine Kinase MB Ratio 1.4 (0-3.0) Troponin I < 0.015 ng/ml (0-0.045) C-Reactive Protein 3.46 mg/dl (0-0.29) Pro-B-Type Natriuretic Peptide 73 pg/ml (0-450) Total Protein 7.6 gm/dl (6.4-8.2) Albumin 3.3 gm/dl (3.4-5.0) Globulin 4.3 gm/dl (2.5-4.0) Albumin/Globulin Ratio 0.8 (0.9-2) Lipase 134 U/L (73-393) Beta-Hydroxybutyric Acid 1.30 mg/dL (0.2-2.81) Bedside Lactic Acid Venous 5.75 mmol/L (0.90-1.70) Urine Color YELLOW Urine Appearance CLEAR (CLEAR) Urine pH 5.0 (4.5-7.5) Urine Specific [place] 1.040 (1.000-1.030) Urine Protein NEG (NEG) Urine Glucose (UA) 3+ (NEG) Urine Ketones NEG (NEG) Urine Occult Blood NEG (NEG) Urine Nitrite NEG (NEG) Urine Bilirubin NEG (NEG) Urine Urobilinogen NEG (NEG) Urine Leukocyte Esterase NEG (NEG) Test 12/10/16 20:22 Venous Blood pH 7.40 (7.36-7.41) Venous Blood Partial Pressure CO2 45 mmHg (38.0-50.0) Venous Blood Partial Pressure O2 33 mmHg Venous Blood HCO3 27 mmol/L Venous Blood Oxygen Saturation 63.3 % Venous Blood Base Excess 1.5 mEq/L Laboratory results per my review. Medications Administered Medications (Trade) Dose Ordered Sig/Shreya Route Start Time Stop Time Status Last Admin Dose Admin Sodium Chloride 1,000 ml @ 999 mls/hr Q1H1M ONCE IV 12/10/16 18:28 12/10/16 19:28 DC 12/10/16 18:28 999 MLS/HR Albuterol/ Ipratropium (Duoneb) 3 ml NOW STAT INH 12/10/16 18:33 12/10/16 18:34 DC 12/10/16 18:33 3 ML Sodium Chloride 1,000 ml @ 999 mls/hr Q1H1M STAT IV 12/10/16 19:03 12/10/16 20:03 DC 12/10/16 19:03 999 MLS/HR ECG Indication: other Rate (beats per minute): 101 Rhythm: sinus tachycardia Findings: no acute ischemic change, no ectopy Comparison ECG Date: 10/29/16 Change: Increased rate otherwise no change. ED Course 1827: The patient was evaluated in room A10. A complete history and physical examination were performed. 1827: NSS 1000 ml @ 999 mls/hr IV 1832: DuoNeb 3 ml INH 1902: NSS 1000 ml @ 999 mls/hr IV 2031: Insulin Human Regular 10 units IV - PT REFUSED 2041: I updated the patient on her results. 2134: The patient signed out AMA. Medical Decision Differential diagnosis: Etiologies such as infections, reactive airway disease, pneumonia, pneumothorax , COPD, CHF, cardiac ischemia, pulmonary embolism, musculoskeletal, gastrointestinal, as well as others were entertained. Nursing notes reviewed. The patient is a 50-year-old female who presented to the emergency apartment for an evaluation of hyperglycemia. Recently the patient was started on prednisone. She has had difficulty controlling her blood sugar because of this. The patient was treated with IV fluids. She did not have acidosis or a significant anion gap. She was treated with IV insulin. She was encouraged to continue all medications as prescribed and continue to monitor her blood sugars. She was also encouraged to follow-up with her primary care physician's week for reevaluation or return to emergency department immediately if symptoms change worsen or the need arises. She was also encouraged to continue monitoring her blood sugar 3-6 times a day. Medication Reconcilliation Current Medication List: was personally reviewed by me Blood Pressure Screening Patient's blood pressure: Elevated blood pressure Blood pressure disposition: Elevated BP felt to be situational Impression Primary Impression: Hyperglycemia Additional Impressions: Dehydration Bronchitis Scribe Attestation The scribe's documentation has been prepared under my direction and personally reviewed by me in its entirety. I confirm that the note above accurately reflects all work, treatment, procedures, and medical decision making performed by me. Departure Information Dispostion Against Medical Advice Referrals Irma Fry M.D. (PCP) Patient Instructions My [facility] Problem Qualifiers
[2016-12-10 19:25] LABS: PROTHROMBIN TIME (PATIENT) 10.4 SECONDS (9.0-12.0)
[2016-12-10 19:45] LABS: URINE APPEARANCE CLEAR (CLEAR); URINE BILIRUBIN NEG (NEG); URINE COLOR YELLOW; URINE NITRITE NEG (NEG); UROBILINOGEN NEG (NEG)
[2016-12-10] MEDS ORDERED: CEFU1TAB35 PO (19:50)
[2016-12-10] MEDS ORDERED: SYN150 PO (19:50)
[2016-12-10] MEDS ORDERED: INSU100I2 SC (19:50)
[2016-12-10] MEDS ORDERED: PRED20TA PO (19:50)
[2016-12-10] MEDS ORDERED: CHOLCAP5 PO (19:52)
[2016-12-10] MEDS ORDERED: BENZ100C84 PO (19:56)
[2016-12-10] MEDS ORDERED: ALBINS/ INH (19:56)
[2016-12-10] MEDS ORDERED: NICO14DI9 TOP (19:58)
[2016-12-10] MEDS ORDERED: DESL1TAB5 PO (20:01)
[2016-12-10] MEDS ORDERED: OXYC-652 PO (20:01)
[2016-12-10 20:06] LABS: ALB/GLOB RATIO 0.8 (0.9-2); ALKALINE PHOSPHATASE 121 U/L (45-117); ALT/SGPT 37 U/L (12-78); AST/SGOT 53 U/L (15-37); BLOOD UREA NITROGEN 14 mg/dl (7-18); BUN/CREATININE RATIO 10.2 (10-20); C-REACTIVE PROTEIN 3.46 mg/dl (0-0.29); CALCIUM 9.2 mg/dl (8.5-10.1); CARBON DIOXIDE 24 mmol/L (21-32); CHLORIDE 95 mmol/L (98-107); CKMB/CK RATIO 1.4 (0-3.0); GLUCOSE 710 mg/dl (70-99); POTASSIUM 3.9 mmol/L (3.5-5.1); SODIUM 130 mmol/L (136-145)
[2016-12-10] MEDS ORDERED: NRN800 PO (20:20)
[2016-12-10] MEDS ORDERED: RANI150T2 PO (20:20)
[2016-12-10] MEDS ORDERED: HYDR-4383 PO (20:20)
[2016-12-10] MEDS ORDERED: INSDGIPEN SQ (20:20)
[2016-12-10 20:27] LABS: MANUAL MICROSCOPIC REQUIRED? NO; REVIEW REQ? NO
[2016-12-10] MEDS ORDERED: CITA40TA4 PO (20:27)
[2016-12-10] MEDS ORDERED: OYST500T47 PO (20:27)
[2016-12-10] MEDS ORDERED: NovoLIN-R INSULIN PER UNIT CHARGE IV STA (20:32)
[2016-12-10 20:34] LABS: VEN BLD GAS O2 SATURATION 63.3 %; VEN BLOOD GAS BASE EXCESS 1.5 mEq/L
[2016-12-10] MEDS ORDERED: ONDA4TAB46 PO (20:52)
[2016-12-10 21:05] VITALS: BP 133/65; PULSE 70; O2SAT 94
== END 2016-12-10 21:35 | disposition left against medical advice (07) ==
LOC: C.EDB 18:15 → C.EDA 21:35
DX: R73.9 Hyperglycemia, unspecified (principal); E86.0 Dehydration; J40 Bronchitis, not specified as acute or chronic; I10 Essential (primary) hypertension; E11.9 Type 2 diabetes mellitus without complications; M79.7 Fibromyalgia; K21.9 Gastro-esophageal reflux disease without esophagitis; E78.5 Hyperlipidemia, unspecified; E03.9 Hypothyroidism, unspecified; Z79.4 Long term (current) use of insulin

== ENCOUNTER 2016-12-28 16:10 | Emergency (ER) | payer OTHER ==
[~2016-12-28] VITALS: Ht 162.6 cm; Wt 109.1 kg
[~2016-12-28 16:10] MED LIST changes: +ALBINS/ INH; -ASPEC81 PO; +BENZ100C84 PO; +CEFU1TAB35 PO; -CHOL20007 PO; +CHOLCAP5 PO; +CITA40TA4 PO; +DESL1TAB5 PO; -FLNIN/ NAE; +HYDR-4383 PO; +INSDGIPEN SQ; -INSU100I SC; +INSU100I2 SC; -IPRASOL4 INH; -LEVO150T9 PO; +NICO14DI9 TOP; +NRN800 PO; +ONDA4TAB46 PO; -OXGN; +OXYC-652 PO; +OYST500T47 PO; +PRED20TA PO; +RANI150T2 PO; -SUCR1TAB29 PO; +SYN150 PO
[2016-12-28 16:16] VITALS: TEMP 37.1; Ht 162.6 cm; Wt 109.1 kg
[2016-12-28] MEDS ORDERED: SODIUM CHLORIDE 0.9% 1000ML 1,000 ML IV ONE (16:30)
[2016-12-28] MEDS ORDERED: SODIUM CHLORIDE 0.9% 1000ML 1,000 ML IV STA (16:30)
--- NOTE | 2016-12-28 16:35 | EMERGENCY ROOM VISIT NOTE ---
History Report prepared by Annmarie: Stan Apple Under the Supervision of: Dr. Cassius Schroeder M.D. First contact with patient: 16:20 Chief Complaint: HEMATURIA Stated Complaint: BLOOD IN URINE - STONES OR INFECTION,THRUSH History of Present Illness The patient is a 51 year old female who presents to the Emergency Room with complaints of persistent hematuria starting two days ago. The patient is additionally complaining of left sided back pain, pain with urination, and increased frequency with urination. She states that she fell two weeks ago and fell on her back, though she did not hit her head. Additionally, the patient states that her vision has been odd recently. She states that she has recently been on a lot of antibiotics for bronchitis and a sinus infection. She states that afterwards she had a yeast infection and thrush, and she was given Diflucan. She additionally states that she had a culture done, and she had an infection and was told to come here. The patient denies any chest pain, shortness of breath, fever, nausea, vomiting, and history of kidney stones. The patient's urine culture from 12/25 showed a muniz-sensitive Enterobacter. Source of History: patient Onset: two days ago Position: other (global) Quality: other (hematuria) Timing: other (persistent) Associated Symptoms: + back pain, + urinary symptoms, No chest pain, No SOB , No nausea, No vomiting Review of Systems See HPI for pertinent positives & negatives. A total of 10 systems reviewed and were otherwise negative. Past Medical & Surgical Medical Problems: (1) Benign essential hypertension (2) Chronic low back pain (3) Degenerative disc disease (4) Depression (5) Diabetes mellitus type 2 (6) Fibromyalgia (7) Gastroesophageal reflux disease (8) Hyperlipidemia (9) Hypothyroidism (10) TIA (transient ischemic attack) Old medical records were reviewed. Nurse's notes were reviewed and I agree with. Family History FHx: cancer Social History Smoking Status: Never Smoker Drug Use: none Marital Status: Housing Status: lives with family Occupation Status: employed Current/Historical Medications Scheduled Cholecalciferol (Vitamin D3), 5,000 INTER.UNIT PO DAILY Citalopram (Citalopram Hydrobromide), 40 MG PO QAM Desloratadine (Desloratadine), 5 MG PO QAM Fluconazole (Fluconazole), 150 MG PO UD Gabapentin (Gabapentin), 800 MG PO BID Insulin Glargine (Lantus Solostar), 50 UNITS SQ BID Insulin Lispro (Human) (Humalog Kwikpen), 55 UNITS SC ACHS Levothyroxine Sodium (Synthroid), 150 MCG PO DAILY Nitrofurantoin Monohyd Macrocr (Macrobid), 100 MG PO BID Oyster Shell (Calcium), 1 TAB PO QPM Potassium Chloride (Micro-K Ext Rel), 10 MEQ PO DAILY Rosuvastatin Calcium (Crestor), 5 MG PO QAM Tiotropium [place] (Spiriva Handihaler), 1 CAP INH DAILY [juice plus], 1 PKT PO DAILY Scheduled PRN Albuterol Sulf (Proventil 0.083% 2.5MG/3ML), 2.5 MG INH Q4H PRN for Wheezing Albuterol Sulfate (Proair Respiclick), 2 PUFFS INH QID PRN for Shortness of Breath Benzonatate (Tessalon Perles), 100 MG PO TID PRN for Cough Epinephrine (Epipen), 0.3 MG IM UD PRN for ALLERGIC REACTION Hydrocodone/Acetaminophen ([place] 10/325 Tab), 1 TAB PO Q8 PRN for Pain Ondansetron Hcl (Zofran), 4 MG PO Q6H PRN for Nausea Oxycodone HCl (Oxycodone HCl ER), 10 MG PO DAILY PRN for Pain Ranitidine HCl (Ranitidine HCl), 150 MG PO BID PRN for Heartburn Allergies Coded Allergies: Shellfish (Verified Allergy, Severe, ANAPHYLAXIS, 12/28/16) Iodinated Contrast Media (Verified Allergy, Unknown, ANAPHYLAXIS, 12/28/16) Omeprazole (Verified Allergy, Unknown, ANAPHYLAXIS, 12/28/16) Peanut (Verified Allergy, Unknown, LIPS SWELL FROM PEANUT SHELL DUST, 12/28) Egg (Verified Adverse Reaction, Mild, DYSPEPSIA, N/V, 12/28/16) Erythromycin (Verified Adverse Reaction, Unknown, GI UPSET, 12/28/16) Physical Exam Vital Signs Date Time Temp Pulse Resp B/P (MAP) Pulse Ox O2 Delivery O2 Flow Rate FiO2 12/28/16 16:16 37.1 110 20 152/99 94 Room Air Physical Exam General: Non-ill middle aged female in no acute distress. HEENT: Normal cephalic atraumatic. Pupils are equal round and reactive to light. Extraocular movements are intact. Oropharynx is pink with moist mucous membranes. No swelling of the mouth lips or tongue. Neck: Supple with a midline trachea. No meningeal signs or stiffness, no JVD or bruits. No Stridor. Chest: Clear to auscultation bilaterally. No wheezes or rhonchi. No increased work of breathing. Heart: regular rate and rhythm. Abdomen: Soft nontender, nondistended without rebound guarding or rigidity. Extremities: No cyanosis clubbing or edema. No calf tenderness or assymetry Spine/Back. Well healed scar from previous lumbar surgery. Non tender to palpation. No CVA tenderness Skin: Good turgor without rashes. Neurologic exam: Cranial nerves two through 12 are intact. Motor and sensation are intact and symmetrical throughout. Medical Decision & Procedures ER Provider Diagnostic Interpretation: Radiology results as stated below per my review and radiologist interpretation: ABD/PELVIS WITHOUT FOR STONE HISTORY: 51 years-old Female eval for stone acute hematuria with concern for possible kidney stone. COMPARISON: CT abdomen 02/08/2007 TECHNIQUE: Multiple axial CT images of the abdomen and pelvis were obtained without IV contrast. A dose lowering technique was used consistent with the principals of ALARA. FINDINGS: Lung bases are generally clear. No pneumoperitoneum identified. Imaged inferior cardiac chambers are unremarkable. There are a few scattered nonspecific epicardial lymph nodes measuring up to 7 mm in short axis. These appear stable from comparison suggesting benign etiology. There are scattered low attenuating foci of the liver left hepatic lobe measuring up to approximately 6 mm which are nonspecific on this single phase study. Statistically these would favor cysts or hemangiomas. Spleen measures 13.7 cm, mildly enlarged. Pancreas and adrenal glands are within normal limits. Prior cholecystectomy. The kidneys and ureters are within normal limits without renal calculi or hydronephrosis. There is mild circumferential wall thickening of the urinary bladder with surrounding inflammatory stranding suggesting cystitis. Prior hysterectomy. Abdominal aorta is normal in course and caliber. No bulky retroperitoneal adenopathy. No bowel obstruction or focal bowel wall thickening. The appendix is not seen and likely is surgically absent. Prior ventral abdominal wall herniorrhaphy. Diastases recti is noted on image 306 of series 3. There is a spinal stimulator pack noted within the left gluteal subcutaneous tissues with leads entering the central canal at approximately the T11-T12 level. Distal leads seen within the region of the posterior epidural space at T9-T10. Bones appear intact. Severe multilevel intervertebral disc space narrowing seen within the lower lumbar spine. IMPRESSION: 1. Circumferential wall thickening of the urinary bladder with mild surrounding inflammatory stranding suggests cystitis. Correlate with urinalysis. 2. No renal calculi or hydronephrosis. 3. Prior cholecystectomy, hysterectomy and ventral abdominal wall herniorrhaphy. 4. Mild splenomegaly. 5. Additional findings as above. The above report was generated using voice recognition software. It may contain grammatical, syntax or spelling errors. Electronically signed by: Lorenzo Jack M.D. 12/28/2016 6:00 PM Dictated Date/Time: 12/28/2016 5:53 PM Laboratory Results 12/28/16 17:00 Red Blood Count 5.08, Mean Corpuscular Volume 89.0, Mean Corpuscular Hemoglobin 28.9, Mean Corpuscular Hemoglobin Concent 32.5, Mean Platelet Volume 11.3, Neutrophils (%) (Auto) 70.2, Lymphocytes (%) (Auto) 23.4, Monocytes (%) (Auto) 5.1, Eosinophils (%) (Auto) 1.1, Basophils (%) (Auto) 0.1, Neutrophils # (Auto) 7.09, Lymphocytes # (Auto) 2.36, Monocytes # (Auto) 0.52, Eosinophils # (Auto) 0.11, Basophils # (Auto) 0.01 12/28/16 17:00 Test 12/28/16 17:00 12/28/16 18:05 White Blood Count 10.10 K/uL (4.8-10.8) Red Blood Count 5.08 M/uL (4.2-5.4) Hemoglobin 14.7 g/dL (12.0-16.0) Hematocrit 45.2 % (37-47) Mean Corpuscular Volume 89.0 fL (80-100) Mean Corpuscular Hemoglobin 28.9 pg (25-34) Mean Corpuscular Hemoglobin Concent 32.5 g/dl (32-36) Platelet Count 203 K/uL (130-400) Mean Platelet Volume 11.3 fL (7.4-10.4) Neutrophils (%) (Auto) 70.2 % Lymphocytes (%) (Auto) 23.4 % Monocytes (%) (Auto) 5.1 % Eosinophils (%) (Auto) 1.1 % Basophils (%) (Auto) 0.1 % Neutrophils # (Auto) 7.09 K/uL (1.4-6.5) Lymphocytes # (Auto) 2.36 K/uL (1.2-3.4) Monocytes # (Auto) 0.52 K/uL (0.11-0.59) Eosinophils # (Auto) 0.11 K/uL (0-0.5) Basophils # (Auto) 0.01 K/uL (0-0.2) RDW Standard Deviation 44.1 fL (36.4-46.3) RDW Coefficient of Variation 13.4 % (11.5-14.5) Immature Granulocyte % (Auto) 0.1 % Immature Granulocyte # (Auto) 0.01 K/uL (0.00-0.02) Anion Gap 9.0 mmol/L (3-11) Est Creatinine Clear Calc Drug Dose 85.6 ml/min Estimated GFR () 80.5 Estimated GFR (Non- 69.4 BUN/Creatinine Ratio 8.2 (10-20) Calcium Level 8.8 mg/dl (8.5-10.1) Total Bilirubin 0.5 mg/dl (0.2-1) Direct Bilirubin 0.1 mg/dl (0-0.2) Aspartate Amino Transf (AST/SGOT) 26 U/L (15-37) Alanine Aminotransferase (ALT/SGPT) 44 U/L (12-78) Alkaline Phosphatase 118 U/L (45-117) Total Protein 6.9 gm/dl (6.4-8.2) Albumin 3.3 gm/dl (3.4-5.0) Lipase 130 U/L (73-393) Laboratory studies as stated above per my review. Medications Administered Medications (Trade) Dose Ordered Sig/Shreya Route Start Time Stop Time Status Last Admin Dose Admin Sodium Chloride 1,000 ml @ 999 mls/hr Q1H1M STAT IV 12/28/16 16:30 12/28/16 17:30 DC 12/28/16 17:10 999 MLS/HR ED Course 1620: Past medical records reviewed. The patient was evaluated in room B7, and a complete history and physical examination were performed. 1630: Sodium Chloride 1000 ml @ 200 mls/hr IV, Sodium Chloride 1000 ml @ 999 mls /hr IV 171: I reevaluated the patient, and she was resting and comfortable waiting for CT scan 1814: Macrobid Cap 100mg PO 1817: Upon reevaluation, the patient is doing well. I discussed the results and treatment plan with her. She verbalized agreement of the treatment plan. The patient was discharged home. Medical Decision Differentials include, but are not limited to; UTI, kidney stone, diabetic complications, electrolyte or metabolic abnormality, infection, trauma This patient comes in as described above. She was placed room B7. She's having hematuria and also some mild back pain . she looks well on exam she is afebrile. She tells me that her doctor told her that she had a UTI based on a culture done on Thursday. She is also diabetic. They sent her up here for treatment as well as to rule out involvement with stone. She's had no history of stones. Clinically, I think that's will unlikely. I did do a CAT scan. IV access established hydrated with normal saline. Blood work was obtained as well as urinalysis and culture. I did obtain a culture from Thursday and it did show pansensitive Enterobacter. He was sensitive to Macrobid which I will start her on the first dose was given here as well as a prescription for twice a day. Clinically, she does not have pyelonephritis. She does not appear to be septic she has no fever or white count. Her kidney function is normal. Her glucose is moderately elevated however she has nothing to suggest that she has DKA. She received IV hydration. She appears to have hemorrhagic cystitis on her CAT scan which goes along with her clinical picture. There is no stone or obstructive uropathy or any other acute findings. I recommended should follow- up with her doctor for recheck next 1-2 days and she should be feeling better the next 24 hours. She should return if: increasing pain, worsening of symptoms , fever or chills, any new problems or concerns. She was happy with the plan and was discharged to home. Medication Reconcilliation Current Medication List: was personally reviewed by me Blood Pressure Screening Patient's blood pressure: Elevated blood pressure Blood pressure disposition: Elevated BP felt to be situational Impression Primary Impression: Hemorrhagic cystitis Additional Impressions: UTI (urinary tract infection) Back pain Scribe Attestation The scribe's documentation has been prepared under my direction and personally reviewed by me in its entirety. I confirm that the note above accurately reflects all work, treatment, procedures, and medical decision making performed by me. Departure Information Dispostion Home / Self-Care Prescriptions Nitrofurantoin Monohyd Macrocr (Macrobid) 100 Mg Cap 100 MG PO BID for 7 Days, #14 CAP Prov: Cassius Schroeder M.D. 12/28/16 Referrals Irma Fry M.D. (PCP) Forms HOME CARE DOCUMENTATION FORM, IMPORTANT VISIT INFORMATION, WORK / SCHOOL INSTRUCTIONS Patient Instructions My [facility] Additional Instructions Rest Drink plenty of fluids Use Macrobid 100 mg twice a day for 7 days Return if: Increasing pain, worsening of symptoms, fever or chills, any new problems or concerns. Follow up with your doctor this week for recheck. Problem Qualifiers
[2016-12-28] MEDS ORDERED: DFL150 PO (16:44)
[2016-12-28 17:19] LABS: BASO % 0.1 %; BASO ABS # 0.01 K/uL (0-0.2); COMPLETE YES; EOS % 1.1 %; HEMATOCRIT 45.2 % (37-47); IG% 0.1 %; LYMPH % 23.4 %; LYMPH ABS # 2.36 K/uL (1.2-3.4); MEAN CORPUSCULAR HEMOGLOBIN 28.9 pg (25-34); MEAN CORPUSCULAR HGB CONC 32.5 g/dl (32-36); MEAN PLATELET VOLUME 11.3 fL (7.4-10.4); MONO % 5.1 %; NEUT % 70.2 %; PLATELET COUNT 203 K/uL (130-400); RED BLOOD COUNT 5.08 M/uL (4.2-5.4)
[2016-12-28 17:35] LABS: BUN/CREATININE RATIO 8.2 (10-20); CALCIUM 8.8 mg/dl (8.5-10.1); CREATININE 0.96 mg/dl (0.60-1.20)
--- NOTE | 2016-12-28 18:02 | DIAGNOSTIC IMAGING REPORT ---
ABD/PELVIS WITHOUT FOR STONE HISTORY: 51 years-old Female eval for stone acute hematuria with concern for possible kidney stone. COMPARISON: CT abdomen 02/08/2007 TECHNIQUE: Multiple axial CT images of the abdomen and pelvis were obtained without IV contrast. A dose lowering technique was used consistent with the principals of JOCELIN. FINDINGS: Lung bases are generally clear. No pneumoperitoneum identified. Imaged inferior cardiac chambers are unremarkable. There are a few scattered nonspecific epicardial lymph nodes measuring up to 7 mm in short axis. These appear stable from comparison suggesting benign etiology. There are scattered low attenuating foci of the liver left hepatic lobe measuring up to approximately 6 mm which are nonspecific on this single phase study. Statistically these would favor cysts or hemangiomas. Spleen measures 13.7 cm, mildly enlarged. Pancreas and adrenal glands are within normal limits. Prior cholecystectomy. The kidneys and ureters are within normal limits without renal calculi or hydronephrosis. There is mild circumferential wall thickening of the urinary bladder with surrounding inflammatory stranding suggesting cystitis. Prior hysterectomy. Abdominal aorta is normal in course and caliber. No bulky retroperitoneal adenopathy. No bowel obstruction or focal bowel wall thickening. The appendix is not seen and likely is surgically absent. Prior ventral abdominal wall herniorrhaphy. Diastases recti is noted on image 306 of series 3. There is a spinal stimulator pack noted within the left gluteal subcutaneous tissues with leads entering the central canal at approximately the T11-T12 level. Distal leads seen within the region of the posterior epidural space at T9-T10. Bones appear intact. Severe multilevel intervertebral disc space narrowing seen within the lower lumbar spine. IMPRESSION: 1. Circumferential wall thickening of the urinary bladder with mild surrounding inflammatory stranding suggests cystitis. Correlate with urinalysis. 2. No renal calculi or hydronephrosis. 3. Prior cholecystectomy, hysterectomy and ventral abdominal wall herniorrhaphy. 4. Mild splenomegaly. 5. Additional findings as above. The above report was generated using voice recognition software. It may contain grammatical, syntax or spelling errors. Electronically signed by: Lorenzo Jcak M.D. 12/28/2016 6:00 PM Dictated Date/Time: 12/28/2016 5:53 PM
[2016-12-28] MEDS ORDERED: NITROFURANTOIN MONOHYDRATE 100 MG CAP PO ONE (18:15)
[2016-12-28] MEDS ORDERED: NITR-5 PO (18:16)
[2016-12-28 18:44] VITALS: BP 132/93; PULSE 74; O2SAT 98
[2016-12-28 18:48] LABS: URINE APPEARANCE TURBID (CLEAR); URINE BILIRUBIN NEG (NEG); URINE COLOR ORANGE; URINE EPITHELIAL CELL AUTO 20-30 /lpf (0-5); URINE NITRITE NEG (NEG); UROBILINOGEN NEG (NEG)
[2016-12-28 18:52] LABS: MANUAL MICROSCOPIC REQUIRED? NO; REVIEW REQ? YES
== END 2016-12-28 18:46 | disposition home or self-care (01) ==
LOC: C.EDB 16:12
DX: N30.90 Cystitis, unspecified without hematuria (principal); M54.9 Dorsalgia, unspecified; I10 Essential (primary) hypertension; E11.9 Type 2 diabetes mellitus without complications; E78.5 Hyperlipidemia, unspecified; E03.9 Hypothyroidism, unspecified; K21.9 Gastro-esophageal reflux disease without esophagitis; F32.9 Major depressive disorder, single episode, unspecified; G89.29 Other chronic pain; Z86.73 Personal history of transient ischemic attack (TIA), and cerebral infarction without residual deficits; Z79.4 Long term (current) use of insulin; Z79.899 Other long term (current) drug therapy; Z88.8 Allergy status to other drugs, medicaments and biological substances; Z91.010 Allergy to peanuts; Z91.018 Allergy to other foods; Z91.012 Allergy to eggs; Z91.041 Radiographic dye allergy status

== ENCOUNTER 2017-01-22 13:54 | Emergency (ER) | payer OTHER ==
[~2017-01-22] VITALS: Ht 162.6 cm; Wt 108.0 kg
[~2017-01-22 13:54] MED LIST changes: -CEFU1TAB35 PO; +DFL150 PO; -NICO14DI9 TOP; -OXYC-652 PO; +OXYC-738 PO; -PRED20TA PO
[2017-01-22 13:56] VITALS: TEMP 36.8; O2SAT 96; Ht 162.6 cm; Wt 108.0 kg
--- NOTE | 2017-01-22 14:41 | EMERGENCY ROOM VISIT NOTE ---
History First contact with patient: 14:17 Chief Complaint: STROKE SYMPTOMS Stated Complaint: LEFT SHOULDER/ARM PAIN, NUMBNESS IN HAND/FACE Nursing Triage Summary: see triage note History of Present Illness The patient is a 51 year old female who presents to the Emergency Room with complaints of left shoulder blade pain that radiates down her arm into her hand. She states this began 6 days ago, has been constant since then and has been getting worse. She describes the pain as an ache in her bone, with tingling , but no weakness. She says her arm feels better when she moves it or props it up. She has been taking hydrocodone for the pain and states that it brings it down to about a 5/10 in severity. She denies chest pain, shortness of breath, slurred speech, difficulty with gait or weakness in any of her limbs. She has a history of fibromyalgia but states the pain had been in her legs until she had a neurostimulator, which has greatly increased her pain. She also describes occasional symptoms of tingling on the left side of her face. She states she had this before, and had a full neuro workup done, including a head CT, which was negative. The working diagnosis at that time was a complex migraine. Review of Systems See HPI for pertinent positives & negatives. A total of 10 systems reviewed and were otherwise negative. Past Medical/Surgical History Medical Problems: (1) Benign essential hypertension (2) Chronic low back pain (3) Degenerative disc disease (4) Depression (5) Diabetes mellitus type 2 (6) Fibromyalgia (7) Gastroesophageal reflux disease (8) Hyperlipidemia (9) Hypothyroidism (10) TIA (transient ischemic attack) Family History FHx: cancer Social History Smoking Status: Current Every Day Smoker Drug Use: none Marital Status: Housing Status: lives with family Occupation Status: employed Current/Historical Medications Scheduled Cholecalciferol (Vitamin D3), 5,000 INTER.UNIT PO DAILY Citalopram (Citalopram Hydrobromide), 40 MG PO QAM Desloratadine (Desloratadine), 5 MG PO QAM Gabapentin (Gabapentin), 800 MG PO BID Insulin Glargine (Lantus Solostar), 50 UNITS SQ BID Insulin Lispro (Human) (Humalog Kwikpen), 55 UNITS SC ACHS Levothyroxine Sodium (Levothyroxine Sodium), 1 TAB PO DAILYBB Methylprednisolone (Medrol Dosepak), 1 PKT PO UD Oyster Shell (Calcium), 1 TAB PO QPM Potassium Chloride (Micro-K Ext Rel), 10 MEQ PO DAILY Rosuvastatin Calcium (Crestor), 5 MG PO QAM Tiotropium [place] (Spiriva Handihaler), 1 CAP INH DAILY [juice plus], 1 PKT PO DAILY Scheduled PRN Albuterol Sulf (Proventil 0.083% 2.5MG/3ML), 2.5 MG INH Q4H PRN for Wheezing Albuterol Sulfate (Proair Respiclick), 2 PUFFS INH QID PRN for Shortness of Breath Benzonatate (Tessalon Perles), 100 MG PO TID PRN for Cough Epinephrine (Epipen), 0.3 MG IM UD PRN for ALLERGIC REACTION Hydrocodone/Acetaminophen ([place] 10/325 Tab), 1 TAB PO Q8 PRN for Pain Ondansetron Hcl (Zofran), 4 MG PO Q6H PRN for Nausea Oxycodone HCl (Oxycodone HCl ER), 10 MG PO DAILY PRN for Pain Ranitidine HCl (Ranitidine HCl), 150 MG PO BID PRN for Heartburn Physical Exam Vital Signs Date Time Temp Pulse Resp B/P (MAP) Pulse Ox O2 Delivery O2 Flow Rate FiO2 01/22/17 16:27 100 20 171/105 01/22/17 13:56 36.8 103 18 166/84 96 Physical Exam HEENT: Head - normocephalic and atraumatic. Pupils are equal, round, and reactive to light. Extraocular eye muscles are intact and sclera are anicteric. Ears - bilaterally patent canals with noninjected tympanic membranes and no evidence of hemotympanum. Nose - moist nasal mucosa without discharge. Mouth - moist buccal mucosa. Oropharynx is nonerythematous and there is no tonsillar exudate or edema noted. Neck: Supple; no JVD, nuchal rigidity, cervical lymphadenopathy, or auscultated bruits. Heart: Regular rate and rhythm. There is a normal S1 and S2 with no murmurs, clicks, or gallops appreciated. Lungs: Clear to auscultation bilaterally with no wheezes, rales, or rhonchi. Abdomen: Soft, completely nontender, nondistended, with good bowel sounds. There are no palpable pulsatile masses or hepatosplenomegaly. There is no guarding, rigidity, or rebound noted. Extremities: No evidence of cyanosis, clubbing, or edema. There are easily palpable peripheral pulses. She is mildly tender to palpation over the left scapular, biceps/triceps, left lateral epicondyle and over the lateral aspect of C2/C3. She has full ROM in both arms, and 5/5 power. She reports the pain in her arm returns when she bends her head forwards, or turns to either side. Neurostimulator located at bottom of back. Neuro:The patient is awake and alert, oriented to day, time, and place. Muscle strength is 5/5 in all 4 extremities. The patient has equal senior technical program manager strength and equal pedal push and pull. There are no cerebellar signs. Medical Decision & Procedures ER Provider Diagnostic Interpretation: CT OF THE CERVICAL SPINE CLINICAL HISTORY: Left arm pain and tingling COMPARISON STUDY: 10/31/2013 CT DOSE: 1022.87 mGy.cm TECHNIQUE: CT scan of the cervical spine was performed from the skull base to the thoracic inlet. Images are reviewed in the axial, sagittal, and coronal planes. IV contrast was not administered for this examination. A dose lowering technique was utilized adhering to the principles of ALARA. FINDINGS: The visualized portions of the lung apices reveal no evidence of pneumothorax. The prevertebral soft tissues are normal. No fractures or subluxations are visualized. There are mild multilevel degenerative changes. There is suspected C6-7 spinal stenosis. If there is clinical concern over presence of cord or disc pathology, an MRI of the cervical spine would be considered diagnostic test of choice.. IMPRESSION: No evidence of acute fracture or traumatic subluxation. CT HEAD WITHOUT CONTRAST (CT) CLINICAL HISTORY: Left arm pain. Facial tingling. COMPARISON STUDY: No previous studies for comparison. TECHNIQUE: Axial CT of the brain is performed from the vertex to the skull base. IV contrast was not administered for this examination. A dose lowering technique was utilized adhering to the principles of ALARA. CT DOSE: FINDINGS: No intra or extra-axial mass lesions are visualized. There is no CT evidence of acute cortical infarction. There is no evidence of midline shift. There is no acute hemorrhage. No calvarial fractures are visualized. There is no evidence of pathologic ventricular dilatation. There is no evidence of acute sinusitis IMPRESSION: No acute intracranial findings Laboratory Results 01/22/17 15:22 Red Blood Count 5.02, Mean Corpuscular Volume 87.8, Mean Corpuscular Hemoglobin 29.3, Mean Corpuscular Hemoglobin Concent 33.3, Mean Platelet Volume 12.4, Neutrophils (%) (Auto) 59.7, Lymphocytes (%) (Auto) 32.0, Monocytes (%) (Auto) 6.5, Eosinophils (%) (Auto) 1.5, Basophils (%) (Auto) 0.2, Neutrophils # (Auto) 5.02, Lymphocytes # (Auto) 2.70, Monocytes # (Auto) 0.55, Eosinophils # (Auto) 0.13, Basophils # (Auto) 0.02 01/22/17 15:22 Test 01/22/17 15:22 01/22/17 15:31 White Blood Count 8.43 K/uL (4.8-10.8) Red Blood Count 5.02 M/uL (4.2-5.4) Hemoglobin 14.7 g/dL (12.0-16.0) Hematocrit 44.1 % (37-47) Mean Corpuscular Volume 87.8 fL (80-100) Mean Corpuscular Hemoglobin 29.3 pg (25-34) Mean Corpuscular Hemoglobin Concent 33.3 g/dl (32-36) Platelet Count 185 K/uL (130-400) Mean Platelet Volume 12.4 fL (7.4-10.4) Neutrophils (%) (Auto) 59.7 % Lymphocytes (%) (Auto) 32.0 % Monocytes (%) (Auto) 6.5 % Eosinophils (%) (Auto) 1.5 % Basophils (%) (Auto) 0.2 % Neutrophils # (Auto) 5.02 K/uL (1.4-6.5) Lymphocytes # (Auto) 2.70 K/uL (1.2-3.4) Monocytes # (Auto) 0.55 K/uL (0.11-0.59) Eosinophils # (Auto) 0.13 K/uL (0-0.5) Basophils # (Auto) 0.02 K/uL (0-0.2) RDW Standard Deviation 43.5 fL (36.4-46.3) RDW Coefficient of Variation 13.6 % (11.5-14.5) Immature Granulocyte % (Auto) 0.1 % Immature Granulocyte # (Auto) 0.01 K/uL (0.00-0.02) Anion Gap 8.0 mmol/L (3-11) Est Creatinine Clear Calc Drug Dose 96.1 ml/min Estimated GFR () 93.3 Estimated GFR (Non- 80.5 BUN/Creatinine Ratio 11.3 (10-20) Calcium Level 9.2 mg/dl (8.5-10.1) Total Bilirubin 0.4 mg/dl (0.2-1) Aspartate Amino Transf (AST/SGOT) 34 U/L (15-37) Alanine Aminotransferase (ALT/SGPT) 38 U/L (12-78) Alkaline Phosphatase 114 U/L (45-117) Total Protein 7.4 gm/dl (6.4-8.2) Albumin 3.4 gm/dl (3.4-5.0) Globulin 4.0 gm/dl (2.5-4.0) Albumin/Globulin Ratio 0.9 (0.9-2) Bedside Troponin I < 0.030 ng/ml (0-0.045) Medications Administered Medications (Trade) Dose Ordered Sig/Shreya Route Start Time Stop Time Status Last Admin Dose Admin Ketorolac Tromethamine (Toradol Inj) 30 mg NOW STAT IV 01/22/17 16:16 01/22/17 16:17 DC 01/22/17 16:30 30 MG Ondansetron HCl (Zofran Inj) 4 mg NOW STAT IV 01/22/17 16:16 01/22/17 16:17 DC 01/22/17 16:30 4 MG Prednisone (PredniSONE TAB) 60 mg NOW STAT PO 01/22/17 16:45 01/22/17 16:46 DC 01/22/17 16:52 60 MG ED Course 14:00: The patient was evaluated in room B11. 14:15: The case was discussed with the attending, Dr. Schroeder, and the patient was evaluated again 14:40: Basic labs, CT of head and c-spine were ordered 16:10: Patient was reassessed. She states she is having a lot of pain in her shoulder. Toradol and zofran ordered Medical Decision The patient is a 51 year old female who presents to the Emergency Room with complaints of a 6 day history of left shoulder blade pain that radiates down her arm into her hand. Differentials include: cervical spine stenosis/herniated disc, nerve impingement, cardiac causes, neurological causes, electrolyte abnormalities. Given the constant nature of her pain, and her ability to reproduce the pain, it is less likely to be cardiac. The patient feels it is likely related to nerve impingement, possibly from her fall one month ago onto her left side. Head CT negative. C-spine shows stenosis at C6/7. She was discharged with a prescription for oral steroids, and counselled on taking ibuprofen and hydrocodone for her pain. She was also told to follow up with her doctor regarding further investigation into her pain, likely requiring an MRI. Impression Primary Impression: Cervical radiculopathy Departure Information Dispostion Home / Self-Care Prescriptions Methylprednisolone (MEDROL DOSEPAK) 4 Mg Jorge 1 PKT PO UD for 6 Days, #1 PKT Prov: Cassius Schroeder M.D. 01/22/17 Referrals Irma Fry M.D. (PCP) Patient Instructions My [facility] Resident Tracking Resident Involvement: Resident Care Provided Care Provided: Adult Hospital Medicine
--- NOTE | 2017-01-22 15:09 | EMERGENCY ROOM VISIT NOTE ---
History Report prepared by Annmarie: Stan Apple Under the Supervision of: Dr. Cassius Schroeder M.D. First contact with patient: 14:16 Chief Complaint: STROKE SYMPTOMS Stated Complaint: LEFT SHOULDER/ARM PAIN, NUMBNESS IN HAND/FACE Nursing Triage Summary: see triage note History of Present Illness The patient is a 51 year old female who presents to the Emergency Room with complaints of worsening constant left shoulder blade pain that radiates into her left arm and left hand that started five days ago. She currently rates her discomfort as a 5/10 in severity after using hydrocodone. The patient states that the pain is like an ache in her bone, and she is having some tingling, and she denies any weakness. She notes that she fell a month ago on her left side. The patient states that she has a history of fibromyalgia, and she has a neurostimulator. The patient denies any chest pain, shortness of breath, gait alteration, slurred speech, rashes, tick bites, fevers, or urinary symptoms. She states that she has a headache, however it is not worse than her usual headaches, and she has some neck pain. The shoulder pain is worsened with turning her neck. She denies any heart problems. Source of History: patient Onset: five days ago Position: shoulder (left) Timing: constant, worsening Modifying Factors (Worsening): other (turning her neck) Associated Symptoms: + headache, No fevers, No chest pain, No SOB, No urinary symptoms, No weakness, No rash Review of Systems See HPI for pertinent positives & negatives. A total of 10 systems reviewed and were otherwise negative. Past Medical & Surgical Medical Problems: (1) Benign essential hypertension (2) Chronic low back pain (3) Degenerative disc disease (4) Depression (5) Diabetes mellitus type 2 (6) Fibromyalgia (7) Gastroesophageal reflux disease (8) Hyperlipidemia (9) Hypothyroidism (10) TIA (transient ischemic attack) Old medical records were reviewed. Nurse's notes were reviewed and I agree with. Family History FHx: cancer Social History Smoking Status: Current Every Day Smoker Drug Use: none Marital Status: Housing Status: lives with family Occupation Status: employed Current/Historical Medications Scheduled Cholecalciferol (Vitamin D3), 5,000 INTER.UNIT PO DAILY Citalopram (Citalopram Hydrobromide), 40 MG PO QAM Desloratadine (Desloratadine), 5 MG PO QAM Gabapentin (Gabapentin), 800 MG PO BID Insulin Glargine (Lantus Solostar), 50 UNITS SQ BID Insulin Lispro (Human) (Humalog Kwikpen), 55 UNITS SC ACHS Levothyroxine Sodium (Levothyroxine Sodium), 1 TAB PO DAILYBB Oyster Shell (Calcium), 1 TAB PO QPM Potassium Chloride (Micro-K Ext Rel), 10 MEQ PO DAILY Rosuvastatin Calcium (Crestor), 5 MG PO QAM Tiotropium [place] (Spiriva Handihaler), 1 CAP INH DAILY [juice plus], 1 PKT PO DAILY Scheduled PRN Albuterol Sulf (Proventil 0.083% 2.5MG/3ML), 2.5 MG INH Q4H PRN for Wheezing Albuterol Sulfate (Proair Respiclick), 2 PUFFS INH QID PRN for Shortness of Breath Benzonatate (Tessalon Perles), 100 MG PO TID PRN for Cough Epinephrine (Epipen), 0.3 MG IM UD PRN for ALLERGIC REACTION Hydrocodone/Acetaminophen ([place] 10/325 Tab), 1 TAB PO Q8 PRN for Pain Ondansetron Hcl (Zofran), 4 MG PO Q6H PRN for Nausea Oxycodone HCl (Oxycodone HCl ER), 10 MG PO DAILY PRN for Pain Ranitidine HCl (Ranitidine HCl), 150 MG PO BID PRN for Heartburn Allergies Coded Allergies: Shellfish (Verified Allergy, Severe, ANAPHYLAXIS, 01/22/17) Iodinated Contrast Media (Verified Allergy, Unknown, ANAPHYLAXIS, 01/22/17 ) Omeprazole (Verified Allergy, Unknown, ANAPHYLAXIS, 01/22/17) Peanut (Verified Allergy, Unknown, LIPS SWELL FROM PEANUT SHELL DUST, ) Egg (Verified Adverse Reaction, Mild, DYSPEPSIA, N/V, 01/22/17) Erythromycin (Verified Adverse Reaction, Unknown, GI UPSET, 01/22/17) Physical Exam Vital Signs Date Time Temp Pulse Resp B/P (MAP) Pulse Ox O2 Delivery O2 Flow Rate FiO2 01/22/17 16:27 100 20 171/105 01/22/17 13:56 36.8 103 18 166/84 96 Physical Exam General: Non-ill appearing middle aged female in no acute distress. HEENT: Normal cephalic atraumatic. Pupils are equal round and reactive to light. Extraocular movements are intact. Oropharynx is pink with moist mucous membranes. No swelling of the mouth lips or tongue. Neck: Supple with a midline trachea. No meningeal signs or stiffness, no JVD or bruits. No Stridor. Chest: Clear to auscultation bilaterally. No wheezes or rhonchi. No increased work of breathing. Heart: regular rate and rhythm. Abdomen: Soft nontender, nondistended without rebound guarding or rigidity. Extremities: Pain with movement of the left arm. No redness or warmth. Normal motor, sensation, and pulses. No cyanosis clubbing or edema. No calf tenderness or assymetry Spine/Back. Non tender to palpation. No CVA tenderness Skin: Good turgor without rashes. Neurologic exam: Cranial nerves two through 12 are intact. Motor and sensation are intact and symmetrical throughout. Medical Decision & Procedures ER Provider Diagnostic Interpretation: Radiology results as stated below per my review and radiologist interpretation: CT HEAD WITHOUT CONTRAST (CT) CLINICAL HISTORY: Left arm pain. Facial tingling. COMPARISON STUDY: No previous studies for comparison. TECHNIQUE: Axial CT of the brain is performed from the vertex to the skull base. IV contrast was not administered for this examination. A dose lowering technique was utilized adhering to the principles of ALARA. CT DOSE: FINDINGS: No intra or extra-axial mass lesions are visualized. There is no CT evidence of acute cortical infarction. There is no evidence of midline shift. There is no acute hemorrhage. No calvarial fractures are visualized. There is no evidence of pathologic ventricular dilatation. There is no evidence of acute sinusitis IMPRESSION: No acute intracranial findings Electronically signed by: Brendan Martins M.D. 01/22/2017 4:07 PM Dictated Date/Time: 01/22/2017 4:[address] OF THE CERVICAL SPINE CLINICAL HISTORY: Left arm pain and tingling COMPARISON STUDY: 10/31/2013 CT DOSE: 1022.87 mGy.cm TECHNIQUE: CT scan of the cervical spine was performed from the skull base to the thoracic inlet. Images are reviewed in the axial, sagittal, and coronal planes. IV contrast was not administered for this examination. A dose lowering technique was utilized adhering to the principles of ALARA. FINDINGS: The visualized portions of the lung apices reveal no evidence of pneumothorax. The prevertebral soft tissues are normal. No fractures or subluxations are visualized. There are mild multilevel degenerative changes. There is suspected C6-7 spinal stenosis. If there is clinical concern over presence of cord or disc pathology, an MRI of the cervical spine would be considered diagnostic test of choice.. IMPRESSION: No evidence of acute fracture or traumatic subluxation. Electronically signed by: Brendan Martins M.D. 01/22/2017 4:10 PM Dictated Date/Time: 01/22/2017 4:08 PM Laboratory Results 01/22/17 15:22 Red Blood Count 5.02, Mean Corpuscular Volume 87.8, Mean Corpuscular Hemoglobin 29.3, Mean Corpuscular Hemoglobin Concent 33.3, Mean Platelet Volume 12.4, Neutrophils (%) (Auto) 59.7, Lymphocytes (%) (Auto) 32.0, Monocytes (%) (Auto) 6.5, Eosinophils (%) (Auto) 1.5, Basophils (%) (Auto) 0.2, Neutrophils # (Auto) 5.02, Lymphocytes # (Auto) 2.70, Monocytes # (Auto) 0.55, Eosinophils # (Auto) 0.13, Basophils # (Auto) 0.02 01/22/17 15:22 Test 01/22/17 15:22 01/22/17 15:31 White Blood Count 8.43 K/uL (4.8-10.8) Red Blood Count 5.02 M/uL (4.2-5.4) Hemoglobin 14.7 g/dL (12.0-16.0) Hematocrit 44.1 % (37-47) Mean Corpuscular Volume 87.8 fL (80-100) Mean Corpuscular Hemoglobin 29.3 pg (25-34) Mean Corpuscular Hemoglobin Concent 33.3 g/dl (32-36) Platelet Count 185 K/uL (130-400) Mean Platelet Volume 12.4 fL (7.4-10.4) Neutrophils (%) (Auto) 59.7 % Lymphocytes (%) (Auto) 32.0 % Monocytes (%) (Auto) 6.5 % Eosinophils (%) (Auto) 1.5 % Basophils (%) (Auto) 0.2 % Neutrophils # (Auto) 5.02 K/uL (1.4-6.5) Lymphocytes # (Auto) 2.70 K/uL (1.2-3.4) Monocytes # (Auto) 0.55 K/uL (0.11-0.59) Eosinophils # (Auto) 0.13 K/uL (0-0.5) Basophils # (Auto) 0.02 K/uL (0-0.2) RDW Standard Deviation 43.5 fL (36.4-46.3) RDW Coefficient of Variation 13.6 % (11.5-14.5) Immature Granulocyte % (Auto) 0.1 % Immature Granulocyte # (Auto) 0.01 K/uL (0.00-0.02) Anion Gap 8.0 mmol/L (3-11) Est Creatinine Clear Calc Drug Dose 96.1 ml/min Estimated GFR () 93.3 Estimated GFR (Non- 80.5 BUN/Creatinine Ratio 11.3 (10-20) Calcium Level 9.2 mg/dl (8.5-10.1) Total Bilirubin 0.4 mg/dl (0.2-1) Aspartate Amino Transf (AST/SGOT) 34 U/L (15-37) Alanine Aminotransferase (ALT/SGPT) 38 U/L (12-78) Alkaline Phosphatase 114 U/L (45-117) Total Protein 7.4 gm/dl (6.4-8.2) Albumin 3.4 gm/dl (3.4-5.0) Globulin 4.0 gm/dl (2.5-4.0) Albumin/Globulin Ratio 0.9 (0.9-2) Bedside Troponin I < 0.030 ng/ml (0-0.045) Laboratory studies as stated above per my review. Medications Administered Medications (Trade) Dose Ordered Sig/Shreya Route Start Time Stop Time Status Last Admin Dose Admin Ketorolac Tromethamine (Toradol Inj) 30 mg NOW STAT IV 01/22/17 16:16 01/22/17 16:17 DC 01/22/17 16:30 30 MG Ondansetron HCl (Zofran Inj) 4 mg NOW STAT IV 01/22/17 16:16 01/22/17 16:17 DC 01/22/17 16:30 4 MG Prednisone (PredniSONE TAB) 60 mg NOW STAT PO 01/22/17 16:45 01/22/17 16:46 DC 01/22/17 16:52 60 MG ECG Indication: back/shoulder pain Rate (beats per minute): 81 Rhythm: normal sinus Findings: no acute ischemic change, no ectopy, other (Poor baseline) Comparison ECG Date: 12/10/16 Change: QR interval is shortened ED Course 1416: Past medical records reviewed. The patient was evaluated in room B11, and a complete history and physical examination were performed. 1616: Zofran 4mg IV, Toradol 30mg IV 1640: Upon reevaluation, the patient is doing well. I discussed the results and treatment plan with her. She verbalized agreement of the treatment plan. The patient was discharged home. 1645: Prednisone 60mg PO Medical Decision Differentials include, but are not limited to; disc disease, musculoskeletal, cardiac disease, neurological disease, fibromyalgia, and electrolyte or metabolic abnormality. This patient comes in as described above she's had left arm pain. It is reproducible has been constant. She has a multiple medical problems. She has no strokelike symptoms. She has no deficits on exam and a stroke scale of 0. She's had no fall or trauma. She had back problems and thinks this could be related to discs in her neck which I do agree is likely. We did a CAT scan of her head and neck. EKG and multiple blood testing was obtained. She was reassessed frequently. She has remained stable. EKG does not suggest acute coronary or arrhythmia. She has no elevation of cardiac enzyme. She has no white count or fever to suggest infection. She has no significant anemia. She has no acute electrolyte or metabolic abnormality. Her pain is reproducible and I think is most likely related to her neck. She was given IV Toradol here is feeling better. She also will be started on prednisone was given a dose here as well as up her prescription for Medrol Dosepak. I encouraged her to check her blood sugar frequently and I warned her that this could make her blood sugar run on the high side. I also encouraged close follow-up with her regular doctor and return to ER if : fever, increasing pain, chest pain, numbness or weakness, worsening of symptoms, any problems concerns. She is happy the plan as was her and she was discharged to home. Medication Reconcilliation Current Medication List: was personally reviewed by me Blood Pressure Screening Patient's blood pressure: Elevated blood pressure Blood pressure disposition: Elevated BP felt to be situational Impression Primary Impression: Left arm pain Additional Impression: Cervical disc disease Scribe Attestation The scribe's documentation has been prepared under my direction and personally reviewed by me in its entirety. I confirm that the note above accurately reflects all work, treatment, procedures, and medical decision making performed by me. Departure Information Dispostion Home / Self-Care Referrals Irma Fry M.D. (PCP) Forms HOME CARE DOCUMENTATION FORM, IMPORTANT VISIT INFORMATION Patient Instructions My [facility] Additional Instructions Rest. Drink plenty of fluids. Continue use your hydrocodone if needed Use Medrol dosepak as directedsteroids May use ibuprofen 400 mg every 6 hours. Take with food. Try to limit its use as you have a history of stomach ulcers. Follow-up with your doctor either tomorrow or Thursday for recheck Problem Qualifiers
[2017-01-22] MEDS ORDERED: LEVO137T3 PO (15:22)
[2017-01-22 15:42] LABS: BASO % 0.2 %; BASO ABS # 0.02 K/uL (0-0.2); COMPLETE YES; EOS % 1.5 %; HEMATOCRIT 44.1 % (37-47); IG% 0.1 %; MEAN CELL VOLUME 87.8 fL (80-100); MEAN CORPUSCULAR HEMOGLOBIN 29.3 pg (25-34); MEAN CORPUSCULAR HGB CONC 33.3 g/dl (32-36); MEAN PLATELET VOLUME 12.4 fL (7.4-10.4); MONO % 6.5 %; NEUT % 59.7 %; PLATELET COUNT 185 K/uL (130-400); RED BLOOD COUNT 5.02 M/uL (4.2-5.4); WHITE BLOOD COUNT 8.43 K/uL (4.8-10.8)
[2017-01-22 16:01] LABS: BUN/CREATININE RATIO 11.3 (10-20); CALCIUM 9.2 mg/dl (8.5-10.1); CREATININE 0.85 mg/dl (0.60-1.20); POTASSIUM 3.5 mmol/L (3.5-5.1)
[2017-01-22 16:03] LABS: ALB/GLOB RATIO 0.9 (0.9-2)
--- NOTE | 2017-01-22 16:09 | DIAGNOSTIC IMAGING REPORT ---
CT HEAD WITHOUT CONTRAST (CT) CLINICAL HISTORY: Left arm pain. Facial tingling. COMPARISON STUDY: No previous studies for comparison. TECHNIQUE: Axial CT of the brain is performed from the vertex to the skull base. IV contrast was not administered for this examination. A dose lowering technique was utilized adhering to the principles of ALARA. CT DOSE: FINDINGS: No intra or extra-axial mass lesions are visualized. There is no CT evidence of acute cortical infarction. There is no evidence of midline shift. There is no acute hemorrhage. No calvarial fractures are visualized. There is no evidence of pathologic ventricular dilatation. There is no evidence of acute sinusitis IMPRESSION: No acute intracranial findings Electronically signed by: Brendan Martins M.D. 01/22/2017 4:07 PM Dictated Date/Time: 01/22/2017 4:06 PM
--- NOTE | 2017-01-22 16:12 | DIAGNOSTIC IMAGING REPORT ---
CT OF THE CERVICAL SPINE CLINICAL HISTORY: Left arm pain and tingling COMPARISON STUDY: 10/31/2013 CT DOSE: 1022.87 mGy.cm TECHNIQUE: CT scan of the cervical spine was performed from the skull base to the thoracic inlet. Images are reviewed in the axial, sagittal, and coronal planes. IV contrast was not administered for this examination. A dose lowering technique was utilized adhering to the principles of ALARA. FINDINGS: The visualized portions of the lung apices reveal no evidence of pneumothorax. The prevertebral soft tissues are normal. No fractures or subluxations are visualized. There are mild multilevel degenerative changes. There is suspected C6-7 spinal stenosis. If there is clinical concern over presence of cord or disc pathology, an MRI of the cervical spine would be considered diagnostic test of choice.. IMPRESSION: No evidence of acute fracture or traumatic subluxation. Electronically signed by: Brendan Martins M.D. 01/22/2017 4:10 PM Dictated Date/Time: 01/22/2017 4:08 PM
[2017-01-22] MEDS ORDERED: ONDANSETRON INJ 2 MG/ML 2 ML VIAL IV STA (16:16)
[2017-01-22] MEDS ORDERED: KETOROLAC TROMETHAMINE 30 MG/ML VIAL IV STA (16:16)
[2017-01-22 16:27] VITALS: BP 171/105; PULSE 100
[2017-01-22] MEDS ORDERED: METH4PAK PO (16:47)
== END 2017-01-22 16:56 | disposition home or self-care (01) ==
LOC: C.EDB 13:56
DX: M79.622 Pain in left upper arm (principal); M50.90 Cervical disc disorder, unspecified, unspecified cervical region; I10 Essential (primary) hypertension; F32.9 Major depressive disorder, single episode, unspecified; E11.9 Type 2 diabetes mellitus without complications; M79.7 Fibromyalgia; K21.9 Gastro-esophageal reflux disease without esophagitis; E78.5 Hyperlipidemia, unspecified; E03.9 Hypothyroidism, unspecified; G45.9 Transient cerebral ischemic attack, unspecified; F17.200 Nicotine dependence, unspecified, uncomplicated; Z79.4 Long term (current) use of insulin

== ENCOUNTER → 2017-07-31 | Outpatient (CLI) | payer OTHER ==
[~2017-07-31] MED LIST changes: -DFL150 PO; +LEVO137T3 PO; -SYN150 PO
--- NOTE | 2017-08-01 05:35 | PAP/PSG TECHNICIAN REPORT ---
[facility] Montessori Paraprofessional Polysomnogram Report Study name: None Report date: 08/01/2017 Study date: 07/31/2017 Referring Physician: Dr. Angelica Aldridge M.D. Name: SOCRATES JUDDE Interpreting Physician: Angelica Aldridge M.D. Date of : 1965 Montessori Paraprofessional: Karly Sibley [facility]. Sex: Female Age: 51 Study Type: PSG Weight: 231 lbs 19 in Height: 51 years, Height 5' 4" Neck Circum: BMI: 39.65 Medications: PROAIR HFA, PROVENTIL, ASPIRIN 81 MG, CALCIUM, VIT D3 2000 UNITS, CITALOPRAM 40 MG, CRESTOR 5 MG, DIAZEPAM 5 MG, EPIPEN, FLONASE, ADVAIR DISKUS, GABAPENTIN 800 MG, HYDROCODONE-ACTEAMINOPHEN 10-325 MG, LANTUS SOLOSTAR 100 UNIT/ML, HUMALOG KWIKPEN 100 UNIT/ML, LEVOTHYROXINE 137 MCG, LEVOCETIRIXINE 5 MG, NEBULIZER, ZOFRAN 4 MG, MIRALAX, POTASSIUM CHLROIDE 10 MEQ, PROMETHAZINE 25 MG, RANITIDINE 150 MG, SPIRIVA HANDIHALER Patient History 51 yr-old female here for a baseline/modified split study (CPAP to be introduced when AHI exceeds 15). She has a history of COPD, snoring, and difficulty getting to sleep. Her [place] scale is 4. The test was started on room air. ETCO2 testing is included in this study. Room 1 Parameters Monitored NPSG: E1-M2, E2-M1, Fp1-M2, Fp2-M1, F3-M2, F4-M2, F4-M1, C3-M2, C4-M2, C4-M1, O1-M2, O2-M2, O2-M1, T3-M2, T4-M1, P3-M2, P4-M1, CHIN1, CHIN2, HR, EKG, Legs, PFLOW, SNOR, FLOW, CFLOW, Tidal Volume, THOR, ABDO, SpO2, PLTH, CPRESS, ETCO2 Wave, ETCO2, pH Sleep Architecture Sleep Stages Time at Lights Off 11:12:29 PM STAGES Time (min.) TST (%) Time at Lights On 5:17:59 AM Wake 67.0 -- Total Recording Time (TRT) 365.50 min. N1 54.0 18 Total Sleep Period (TSP) 338.0 min. N2 190.5 64 Total Sleep Time (TST) 298.5min. N3 14.0 5 Awake Time 67.0 min. REM 40.0 13 Wake after Sleep Onset 54.0 min. Sleep Efficiency (SE) 82 % Sleep Onset Latency (FEI) 13.0 min. Number of Stage 1 Shifts None Awakenings 24 Stage Changes 147 Number of REM periods 1 REM 40.0 13 REM Latency 134.5 min. NREM 258.5 87 Body Position Analysis Supine Right Left Side Prone Vertical Total Sleep Time (min.) 69.0 0.0 244.5 244.50 0.0 0.0 Total Sleep Time (%) 18% 0% 82% 82 0% N/A% Total Sleep Time REM (min.) 40.0 0.0 0.0 None 0.0 0.0 Total Sleep Time NREM (min.) 14.0 0.0 244.5 None 0.0 0.0 Intermittent Wake (min.) 15.0 0.0 52.0 None 0.0 0.0 Total Sleep Period (%) 20% None None None None None Arousals Myoclonus (PLM) * Events Count Index Events Count Index Spontaneous 33 7 Events Awake (PLMW) 72 64.5 Respiratory 3 0.6 Events Asleep w/ Arousal (PLMA) 67 13.5 PLM 67 13 Events Asleep w/o Arousal (PLMS) 64 12.9 Snoring 7 1 Total Asleep 131 26.3 Total 110 22 Total 203 33 Respiratory Analysis * CA OA MA CH H RERA Total Count 0 0 0 0 22 2 22 Index 0.0 0.0 0.0 0 4.4 0 4.8 Mean Duration 0.0 0.0 0.0 0.00 18.1 16.3 17.9 Longest Duration 0.0 0.0 0.0 0.00 0.0 16.3 38.8 Respiratory Event Summary Total Supine ~Supine Right Left Prone REM NREM Apneas Count 0 0 0 N/A 0 N/A 0 0 Index 0.0 0 0 N/A 0.0 N/A 0 0 Hypopneas (4% Desat) Count 22 20 2 N/A 2 N/A 19 3 Index 4.4 22.2 0 N/A 0.5 N/A 28.5 0.7 Apneas & All Hypopneas Count 22 20 2 N/A 2 N/A 19 3 Index 4.4 22 0 N/A 0 N/A 28.5 0.7 Respiratory Events (Business Account Leader+All Hyp+RERA) Count 22 21 3 N/A 3 N/A 19 3 Index 4.8 23 1 N/A 0.7 N/A 28.5 1.2 Respiratory Related Arousal Count 3 21 2 N/A 2 N/A 0 3 Index 0.6 1 0 N/A 0 N/A 0 1 Snoring Analysis Supine Right Left Prone REM NREM Total Snore duration 4.6 min Snores count 9 N/A 76 N/A 6 79 85 Snore mean duration 3.2 Sec Snores index 10 N/A 19 N/A 9.0 18.3 17.1 TST with snoring (%) 1.5% SpO2 Analysis Total REM NREM Awake <50% 0.0 min. 0.0 min. 0.0 min. 0.0 min. 51 - 60% 0.0 min. 0.0 min. 0.0 min. 0.0 min. 61 - 70% 0.0 min. 0.0 min. 0.0 min. 0.0 min. 71 - 80% 0.0 min. 0.0 min. 0.0 min. 0.0 min. 81 - 90% 48.9 min. 6.0 min. 37.4 min. 5.6 min. 91 - 100% 294.6 min. 34.0 min. 218.0 min. 42.6 min. Average 92 93 92 92 Minimum SpO2 82 85 88 82 Desaturation Event Index 4.6 25.5 1.9 3.6 # Desat. Events below 89% 8 3 4 1 Time(%) with Saturation below 89% 0.5 0.3 0.1 0.1 Time(min.) with Saturation below 89% 1.6 1.0 0.3 0.3 Heart Rate Analysis End Tidal CO2 Analysis Min (bpm) Max (bpm) Average (bpm) TSP (mins) % of TSP Awake 59 84 72 Above 55 mmHg 0.0 0.0 NREM 34 214 69 50-55 mmHg 0.0 0.0 REM 60 75 69 45-50 mmHg 59.5 19.9 Overall 34 214 69 40-45 mmHg 206.7 69.2 35-40 mmHg 24.6 8.3 30-35 mmHg 3.7 1.2 Average ETCO2 0.0 Supplemental O2 Values Minimum O2 level: None Value Start Time End Time Montessori Paraprofessional Comments Ms. Judd slept in the left and supine positions. No cardiac arrhythmias were noted. PLMs were noted. No bruxism noted. Snoring was noted and scored as a 2 on a scale of 1 through 5. (0=no snoring, 5=snoring loud enough to be heard through a closed door or down the ferreira way) She did not meet specific Split-Night criteria during the diagnostic portion of this study. She awoke to use the restroom one time during the night. She woke up around 5 am and stated that she was done sleeping. Ms. Judd stated that she slept poorly. The final report will be interpreted and signed by a sleep physician. The completed physician report will then be placed in the patient medical record. Therapy (cm H2O) 0 TIB (min.) 365.5 TST (min.) 298.5 Sleep Onset (min.) 13.0 REM Onset From Sleep (min.) 134.5 Sleep Efficiency % 82 Wakefulness (%) 18 Wakefulness (min.) 67.0 NREM 1 (%) 18 NREM 1 (min.) 54.0 NREM 2 (%) 64 NREM 2 (min.) 190.5 NREM 3 (%) 5 NREM 3 (min.) 14.0 REM (%) 13 REM (min.) 40.0 # Arousals 110 Arousal Index 22 # Snore 85 Snore Index 17.1 AHI 4.4 AHI Supine 22 AHI Non-Supine 0 NREM AHI 0.7 REM AHI 28.5 RDI 4.8 # Obstructive Apnea 0 # Central Apnea 0 # Mixed Apnea 0 # Hypopneas 22 RERAs 2 Total Respiratory Events 24 Time Below SpO2 89% (min.) 1.4 Mean NREM SpO2 (%) 92 Mean REM SpO2 (%) 93 Mean Sleep SpO2 (%) 92 Min NREM SpO2 (%) 88 Min REM SpO2 (%) 85 Position Supine (min.) 69.0 Position Non-supine (min.) 244.5 LM Index Sleep 26.3 LM Index NREM 29.7 LM Index REM 4.5 Mean Heart Rate (bpm) 69 Min Heart Rate (bpm) 34
--- NOTE | 2017-08-13 08:50 | Sleep Study ---
Sleep Study Report Date of Service: 08/13/17 Sleep Study Report Patient: SOCRATES JUDD Test Date: 07/31/2017 Page 3 [facility] Diagnostic Polysomnogram Physician Report . Name: SOCRATES JUDD MR#: [id number] Date of : 1965 Study date: 07/31/2017 Report date: 08/13/2017 Study name: PSG Referring Physician: Dr. Angelica Aldridge M.D. Interpreting Physician: Angelica Aldridge M.D. *NOTICE TO RECEIVING DEMOCRAT AGENCY~this information is strictly Confidential and protected under [place] law.~ [place] law prohibits you from making any further disclosure of this information unless further disclosure is expressly permitted by the written consent of the person to whom it pertains or is authorized by law.~ A general authorization for the release of medical or other information is not sufficient for this purpose.~ Hospital accepts no responsibility if the information is made available to any other person, INCLUDING THE PATIENT. Impression: 1-Mild obstructive sleep apnea syndrome. These respiratory events were associated with oxygen desaturations (luis of 82 %). 2-Abnormal sleep architecture likely due to respiratory events and first night effect. Recommendations: 1-Auto-PAP vs. weight loss program. 2-Avoidance of alcohol and sedatives. Clinical Background: Patient is a 51 years old lady with history of COPD, snoring and difficulty falling asleep. Weight: 231 lbs 19 in Height: 51 years, Height 5' 4" Neck Circum: ESS: 4 BMI: 39.65 Medications: PROAIR HFA, PROVENTIL, ASPIRIN 81 MG, CALCIUM, VIT D3 2000 UNITS, CITALOPRAM 40 MG, CRESTOR 5 MG, DIAZEPAM 5 MG, EPIPEN, FLONASE, ADVAIR DISKUS, GABAPENTIN 800 MG, HYDROCODONE-ACTEAMINOPHEN 10-325 MG, LANTUS SOLOSTAR 100 UNIT /ML, HUMALOG KWIKPEN 100 UNIT/ML, LEVOTHYROXINE 137 MCG, LEVOCETIRIXINE 5 MG, NEBULIZER, ZOFRAN 4 MG, MIRALAX, POTASSIUM CHLROIDE 10 MEQ, PROMETHAZINE 25 MG, RANITIDINE 150 MG, SPIRIVA HANDIHALER Sleep Architecture: Minutes TRT Total recording time 365.50 Sleep latency 13.0 SPT Sleep Period Time 338.0 WASO Wake time after sleep onset 54.0 TST Total Sleep Time 298.5 R Sleep latency minus wake 134.5 Sleep efficiency 82% Minutes TST SPT Stage N1 54.0 min 18% 16% Stage N2 190.5 min 64% 56% Stage N3 14.0 min 5% 4% Stage R 40.0 min 13% 12% Oxygenation: Min. Sat. Avg. Sat. Awake 82 % 92 % N sleep 85 % 92 % REM 85 % 93 % Overall 82 % 92 % Cardiac Events: Min bpm Max bpm Avg bpm Awake 59 84 72 N sleep 34 214 69 REM 60 75 69 Overall 34 214 69 Movement Events: Index Total PLMs: 131 26.3/hr PLMs associated with arousals 66 1.0/hr Arousals: Index Respiratory related 4 1.0/hr PLM related 66 13/hr Spontaneous 33 7/hr Total 110 22/hr Respiratory Events: Index Central 0 0.0 /hr Obstructive 1 /hr Mixed 0 0.0 /hr Hypopneas 33 6.6 /hr RERAs 2 0 /hr AHI = Apneas + Hypopneas 34 6.8 /hr RDI = Apneas + Hypopneas +RERAs 34 7.0 /hr Time spent =< 88%: 0 minutes Supplemental O2 was utilized for 0 minutes. Comments / Artifact / Quality of the Study The polysomnographic recording quality was satisfactory for interpretation. No significant artifacts were found. Parameters: Following the technical and digital specifications of the [place] [employer] (AASM), a standard diagnostic polysomnogram was performed monitoring EEG, EOG, EMG (chin and leg derivations), oxygen saturation, body position, digital video, respiratory effort and airflow. The sleep Stage and event scoring was based on the AASM Manual for the Scoring of Sleep and Associated Events 2007 edition. Apneas are defined as a drop in the peak thermal sensor excursion by > 90% of baseline for at least 10 seconds. Hypopneas were scored using the 4% oxygen desaturation rule (4A-[employer]icare) and a decrease in the nasal pressure excursions by > 30% of baseline for at least 10 seconds. Respiratory effort-related arousals (RERAs) are defined as a sequence of breaths lasting at least 10 seconds characterized by increasing respiratory effort or flattening of the nasal pressure waveform leading to an arousal from sleep when the sequence of breaths does not meet criteria for an apnea or hypopnea. Apnea Hypopnea Index (AHI) is defined as the number of apneas and hypopneas occurring in an hour of sleep. Respiratory Disturbance Index (RDI) is defined as the number of apneas, hypopneas, and RERAs occurring in an hour of sleep. Thank you for the courtesy of this referral, Angelica Aldridge MD Certified Internal/Sleep Medicine
== END | disposition home or self-care (01) ==
LOC: C.NEUR 20:00
PROVIDERS: ATTEND Internal Medicine
DX: G47.33 Obstructive sleep apnea (adult) (pediatric) (principal)

== ENCOUNTER 2018-09-06 20:04 | Inpatient (IN) ==
--- OUTSIDE RECORDS SUMMARY | 2018-09-06 20:07 | External Medical Summary | Continuity of Care Document ---
:1965 Author Name Lauren Martinez Address Unavailable Unavailable , Care Team Providers Name Role Phone Unavailable Unavailable Unavailable Luis Toro Unavailable [email or web address] Supriya Acosta M.D. Unavailable [email or web address] Declan FLORES Unavailable [email or web address] MAINALI Unavailable Unavailable Unavailable Unavailable Unavailable Problems Diabetic peripheral neuropathy (250.60) (E11.42) DM (diabetes mellitus), type 2, uncontro lled w/neurologic complication (250.62) (E11.49) Depression (311) (F32.9) Vitamin D deficiency (268.9) (E55.9) Obesity (278.00) (E66.9) Impaired sensation (782.0) (R20.1) Hypothyroidism (244.9) (E03.9) Dyslipidemia (272.4) (E78.5) Encounter for diabetic foot exam (250.00) (E11.9) Elevated blood pressure reading without diagnosis of hypertension (796.2) (R03.0) Sensory problems with limbs (V49.3) (R20.9) Allergies and Adverse Reactions Iodides (Allergy) PriLOSEC CPDR (Allergy) Adhesive Tape (Allergy) Status: Denied Eggs (Allergy) Shellfish (Allergy) Medications Gabapentin 800 MG Oral Tablet; TAKE 1 TABLET 3 TIMES DAILY. , M.D. Refills: 0 OneTouch Delica Lancets Fine; Inject 4 t imes daily for multiple daily insulin injections Type 2 Diabetes Mellitus [address] MARK Ramirez 100 Miscellaneous Box Quantity: 4 Refills: 3 EpiPen 0.3 MG/0.3ML CRUZ; USE DIRECTED. , M.D. Refills: 0 Ativan 1 MG Oral Tablet; TAKE 1 TABLET 1 HOUR PRIOR TO PROCE DURE. , M.D. Refills: 0 Lantus SoloStar 100 UNIT/ML Subcutaneous Solution Pen-injector; USE UP TO 52 UNITSin PM MARK Ramirez Start: 06-Feb-2014 Quantity: 4 3 ML Pen (5 Pens) Refills: 3 OneTouch Ultra Blue In Vitro Strip; TEST 4 TIMES DAILY. - pt injects insulin 4 times daily for Type 2 Diabetes Mellitus [id number] DeclanMARKny Start: 16-Jan-2014 Quantity: 4 100 Strip Box Refills: 3 Vitamin D 2000 UNIT Oral Capsule; TAKE 1 CAPSULE Daily Penny england M.D. Christian SZaira Start: 07-Feb-2013 Quantity: 90 Refills: 0 Vitamin B-12 500 MCG Oral Tablet; TAKE 1 TABLET DAILY. Juan Francis cht SZaira Start: 07-Feb-2013 Quantity: 100 Refills: 0 HumaLOG KwikPen 100 UNIT/ML Subcutaneous Solution Pen-injector; Use per sliding scale 130-160 units daily MARK Ramirez Start: 28-Oct-2012 Quantity: 10 3 ML Pen (5 Pens) Refills: 3 BD Pen Needle Rika U/F 32G X 4 MM; USE 7 TIMES DAILY WITH HUMALOG AND LANTUS PENS. MARK Ramirez Start: 23-Dec-2012 Quantity: 7 100 Miscellaneous Cassius x Refills: 3 HYDROcodone-Acetaminophen 10-325 MG Oral Tablet; TAKE 1 TABLET 3 times daily PRN , M.D. Start: 06-Feb-2014 Quantity: 90 Refills: 0 OxyCONTIN 20 MG Oral Tablet ER 12 Hour A buse-Deterrent; Take 1 tablet twice daily , M.D. Start: 06-Feb-2014 Refills: 0 OxyCONTIN 10 MG Oral Tablet ER 12 Hour A buse-Deterrent; Take 1 tablet twice daily , M.D. Start: 06-Feb-2014 Refills: 0 Synthroid 125 MCG Oral Tablet; take 1 ta blet every morning on an empy stomach with a full glass of water nothing to eat for 30 minn , M.D. Start: 06-Feb-2014 Quantity: 30 Refills: 5 Crestor 5 MG Oral Tablet; TAKE 1 TABLET DAILY. MARK Ramirez Start: 26-Jul-2014 Quantity: 30 Refills: 0 CeleXA 10 MG Oral Tablet; Take 1 tablet daily , M.D. Refills: 0 Procedures History of Total Abdominal Hysterectomy With Removal Of Both Status: Completed Ovaries History of Cholecystectomy Status: Compl eted History of Tonsillectomy With Adenoidectomy Status: Completed History of Appendectomy Status: Complete d History of Back Surgery Status: Complete d History of Hernia Repair Status: Complet ed History of Breast Surgery Lumpectomy Sta tus: Completed History of Section Status: Comp leted Immunizations Pneumococcal polysaccharide vaccine, 23 valent On: 3 9:52 Lot #: [id number], [employer] Influenza Comments:Contraindic ated Social History - Smoking Status Current every day smoker Plan of Treatment Planned Observations Planned Goals not documented Results No Known Results Results not documented
[2018-09-06] MEDS ORDERED: SODIUM CHLORIDE 0.9% 1000ML 1,000 ML IV SCH (20:30)
--- NOTE | 2018-09-06 20:49 | XRay Report ---
XR chest 1V portable HISTORY: weakness COMPARISON: Chest 06/24/2018. FINDINGS: The lungs are clear. Cardiac silhouette is normal in size. No pleural effusions. No pneumot horax. Spinal stimulator leads are noted. These remain unchanged in position. IMPRESSION: No acute process. Electronically signed by: Tom Ba M.D. 09/06/2018 8:47 PM
[2018-09-06 21:07] LABS: Basophils # (auto) 0.02 K/uL (0-0.2); Basophils % (auto) 0.2 %; Eosinophils # (auto) 0.16 K/uL (0-0.5); Eosinophils % (auto) 1.5 %; Hematocrit (blood only) 41.9 % (37-47); Immature Granulocytes # (auto) 0.02 K/uL (0.00-0.02); Immature Granulocytes % (auto) 0.2 %; Lymphocytes # (auto) 3.85 K/uL (1.2-3.4); Lymphocytes % (auto) 36.8 %; Mean Corpuscular Hgb Conc 33.4 g/dL (32-36); Mean Corpuscular Volume 86.6 fL (80-100); Mean Platelet Volume 12.3 fL (7.4-10.4); Monocytes # (auto) 0.57 K/uL (0.11-0.59); Monocytes % (auto) 5.4 %; Neutrophils # (auto) 5.84 K/uL (1.4-6.5); Neutrophils % (auto) 55.9 %; Platelet Count 233 K/uL (130-400); RDW Coefficient of Variation 13.3 % (11.5-14.5); RDW Standard Deviation 42.5 fL (36.4-46.3); Red Blood Count 4.84 M/uL (4.2-5.4); White Blood Count 10.46 K/uL (4.8-10.8)
--- NOTE | 2018-09-06 21:15 | Emergency Department Note ---
Entered by Colleen Trejo acting as a scribe for Liban Barnes MD ED Provider Note CHIEF COMPLAINT: Weakness HISTORY OF PRESENT ILLNESS: The patient is a 52 year old female who presents to the Emergency Room with complaints of right leg weakness that started around 1400, 6 hours prior to arrival. The patient states that she has numbness in her right foot. She states that she has tripped over her own feet several times since her symptoms began. The patient states that she has left shoulder pain, and states that this began after she had physical therapy today. The patient states that she has a pinched nerve and muscle spasms in the left side of her neck and states that she has been doing physical therapy for this. She states that she currently has numbness in her left fingers. The patient states that she previously had a TIA, but states that her current symptoms are not similar to this prior episode. The patient states that she has had increased frequency of urination since she had gastric bypass surgery. The patient states that following her gastric bypass surgery there was difficulty with opening her esophagus. She states that she has had two previous back surgeries and states that she has a stimulator in place. Pt denies LOC, headache, fevers, chills, diaphoresis, visual changes, neck pain, chest pain, breathing difficulties, nausea, vomiting, abdominal pain, back pain, melena, hematochezia, lymphadenopathy, rash, or other complaints. REVIEW OF SYSTEMS: See HPI for pertinent positives and negatives. A total of ten systems were reviewed and were otherwise negative. PMHx/PSHx: Fibromyalgia Cervical disc disease TIA Gastric bypass SOCIAL HISTORY: Patient lives at home. PHYSICAL EXAM: GENERAL: Awake, alert, well-appearing, in no distress HENT: Normocephalic, atraumatic. Oropharynx unremarkable. EYES: PERRL. Normal conjunctiva. Sclera non-icteric. NECK: Inspection normal. Non-tender. Supple. No nuchal rigidity. FROM. No masses. RESPIRATORY: Clear to auscultation. No wheezes. No rales. Normal respiratory effort. CARDIAC: Normal rate. Normal rhythm. No murmurs. No rubs. Extremities warm and well perfused. Pulses equal. No JVD. GI: Soft, non-distended. No tenderness to palpation. No rebound or guarding. No masses. RECTAL: Deferred. MUSCULOSKELETAL: Atraumatic. Chest examination reveals no tenderness. The back is symmetrical on inspection without obvious abnormality. There is no CVA tenderness to palpation. No joint edema. LOWER EXTREMITIES: Calves are equal size bilaterally and non-tender. No edema. No discoloration. NEURO: Numbness in left 4th and 5th fingers. No drift. Normal rapid alternating movements. Weakness with dorsi and plantar flexion of the right foot. Subjective numbness in the right foot. Otherwise no sensory or motor deficits. SKIN: No rash or jaundice noted. EMERGENCY DEPARTMENT COURSE: 2024: Past medical records reviewed. The patient was evaluated in room C7, and a complete history and physical examination were performed. 2211: The patient requested pain medication because her Hydrocodone did not help her left arm pain. 7: I checked on the patient and updated her. She states that she is feeling a lot better. 2306: I discussed the case with Dr. Kapadia Hospitalist who accepts the patient for further evaluation. MEDICAL DECISION MAKING: Nursing notes reviewed and agree them. The patient's history was concerning for weakness in the right leg. She had no saddle anesthesia or bowel bladder dysfunction. Differential diagnosis: Etiologies such as metabolic, infection, hypo/hyperglycemia, electrolyte abnormalities, cardiac sources, intracerebral event, toxicologic, neurologic, as well as others were entertained. Physical examination: As above. The patient had weakness in dorsi and plantarflexion on the right side. No saddle anesthesia. ER treatment provided: IV Lock Normal saline hydration Cardiac monitoring On reassessment the patient felt better. IV Dilaudid IV Zofran On reassessment patient felt better IV Rocephin Oral aspirin Diagnostics interpretation by me: ECG: Normal without acute change. The labs revealed an unremarkable CBC and chemistry panel. Imaging studies: CT imaging of the head was performed. The patient presented with right leg weakness, specifically in the right foot. This has been present since the early afternoon. The patient is not in a TPA wi ndow. The presentation almost seems peripheral but she does have a history of TIA. She will need further management in the hospital. She was also found to have a UTI. She was treated with IV Rocephin. Consultation: A consultation was placed with the hospitalist. The case was discussed and diagn ostics were reviewed. The patient was evaluated in the ER for further treatment. IMPRESSION: Stroke-like symptoms Right leg weakness UTI with hematuria PLAN: Admitted The scribe's documentation has been prepared under my direction and personally reviewed by me in its entirety. I confirm that the note above accurately reflects all work, treatment, procedures, and medical decision making performed by me. Impression & Plan Stroke-like symptoms, Right leg weakness, UTI (urinary tract infection) Past Med/Surg History Medical History Fibromyalgia (Chronic) Fatty liver (Acute 09/29/10) Hyperglycemia (Acute) TIA (transient ischemic attack) Tobacco dependence syndrome (Acute 09/29/10) Surgical History Hx of gastric bypass Social History Preferred Language: Guamanian Feels Safe at Home: Yes Smoking Status: Current some day smoker Results & Data Vital Signs Vital Signs - 24 hr 09/06/18 20:06 09/06/18 20:37 09/06/18 21:59 Temperature 36.4 C L Temperature Source Oral Sepsis Recent Fever Within 48 Hours No Sepsis New/Unexplained Change in Mental Status No Sepsis Action Taken by Nursing No Action Required Pulse Rate 107 H Pulse Rate [Apical] 91 H 89 Pulse Rhythm Regular Pulse Rhythm [Apical] Regular Regular Pulse Strength Normal Pulse Strength [Apical] Normal Normal Respiratory Rate 20 18 18 Respiratory Effort / Characteristics Non-Labored Spontaneous Non-Labored Spontaneous Non-Labored Spontaneous Respiratory Depth Normal Normal Normal Respiratory Pattern Regular Regular Regular Blood Pressure 132/86 Blood Pressure [Right Arm] 156/106 H Blood Pressure Mean 101 Blood Pressure Mean [Right Arm] 122 Blood Pressure Position Sitting Pulse Oximetry 97 98 100 Oxygen Delivery Method Room Air Room Air Room Air 09/06/18 22:39 09/06/18 23:12 Temperature Temperature Source Sepsis Recent Fever Within 48 Hours Sepsis New/Unexplained Change in Mental Status Sepsis Action Taken by Nursing Pulse Rate Pulse Rate [Apical] 85 92 H Pulse Rhythm Pulse Rhythm [Apical] Regular Regular Pulse Strength Pulse Strength [Apical] Respiratory Rate 20 16 Respiratory Effort / Characteristics Non-Labored Spontaneous Non-Labored Spontaneous Respiratory Depth Normal Normal Respiratory Pattern Regular Regular Blood Pressure Blood Pressure [Right Arm] 156/106 H 130/88 Blood Pressure Mean Blood Pressure Mean [Right Arm] 122 102 Blood Pressure Position Pulse Oximetry 98 97 Oxygen Delivery Method Room Air Room Air Home Medications Current Medication List: was personally reviewed by me Laboratory Data Attestation: I reviewed the patient's lab results. Result diagrams: 09/06/18 20:55 09/06/18 20:55 Lab Results 09/06/18 09/06/18 09/06/18 Range/Units 20:55 20:55 22:04 WBC 10.46 (4.8-10.8) K/uL RBC 4.84 (4.2-5.4) M/uL Hgb 14.0 (12.0-16.0) g/dL Hct 41.9 (37-47) % MCV 86.6 (80-100) fL MCH 28.9 (25-34) pg MCHC 33.4 (32-36) g/dL RDW Std Deviation 42.5 (36.4-46.3) fL RDW Coeff of Lionel 13.3 (11.5-14.5) % Plt Count 233 (130-400) K/uL MPV 12.3 H (7.4-10.4) fL Immature Gran % (Auto) 0.2 % Neut % (Auto) 55.9 % Lymph % (Auto) 36.8 % [place] % (Auto) 5.4 % Eos % (Auto) 1.5 % Baso % (Auto) 0.2 % Immature Gran # (Auto) 0.02 (0.00-0.02) K/uL Neut # (Auto) 5.84 (1.4-6.5) K/uL Lymph # (Auto) 3.85 H (1.2-3.4) K/uL [place] # (Auto) 0.57 (0.11-0.59) K/uL Eos # (Auto) 0.16 (0-0.5) K/uL Baso # (Auto) 0.02 (0-0.2) K/uL Sodium 140 (136-145) mmol/L Potassium 3.5 (3.5-5.1) mmol/L Chloride 103 (98-107) mmol/L Carbon Dioxide 30 (21-32) mmol/L Anion Gap 7.0 (3-11) BUN 8 (7-18) mg/dl Creatinine 0.79 (0.6-1.2) mg/dl Est Cr Clr Drug Dosing 83.8 ml/min Est GFR ( Amer) 101.2 Est GFR (Non-Af Amer) 87.3 BUN/Creatinine Ratio 10.0 (10-20) Glucose 136 H (70-99) mg/dl Calcium 9.8 (8.5-10.1) mg/dl Magnesium 2.1 (1.8-2.4) mg/dl Total Bilirubin 0.4 (0.2-1) mg/dl AST 25 (15-37) U/L ALT 36 (12-78) U/L Alkaline Phosphatase 144 H (45-117) U/L Troponin I < 0.015 (0-0.045) ng/ml Total Protein 7.5 (6.4-8.2) gm/dl Albumin 3.6 (3.4-5.0) gm/dl Globulin 3.9 (2.5-4.0) gm/dl Albumin/Globulin Ratio 0.9 (0.9-2) TSH 0.006 L (0.300-4.500) uIu/ml Free T4 1.48 (0.8-1.6) ng/dl Urine Color Dark Yellow Urine Appearance Turbid A (Clear) Urine pH 5.0 (4.5-7.5) Ur Specific [place] 1.014 (1.000-1.030) Urine Protein Trace H (Negative) Urine Glucose (UA) Negative (Negative) Urine Ketones Negative (Negative) Urine Blood 1+ H (Negative) Urine Nitrite Positive A (Negative) Urine Bilirubin Negative (Negative) Urine Urobilinogen Negative (Negative) Ur Leukocyte Esterase 3+ H (Negative) Urine WBC (Auto) >30 H (0-5) /hpf Urine RBC (Auto) 5-10 H (0-4) /hpf U Hyaline Cast (Auto) 0 (0-5) /lpf U Epithel Cells (Auto) 10-20 H (0-5) /lpf Urine Bacteria (Auto) 2+ H (Negative) Administered Medications Discontinued Medications Aspirin (Aspirin) 324 mg PO NOW STA Stop: 09/06/18 23:08 Last Admin: 09/06/18 23:13 Dose: 324 mg Documented by: [id number] Hydromorphone HCl (Dilaudid) 0.5 mg IV NOW STA Stop: 09/06/18 22:13 Last Admin: 06/10/19 22:20 Dose: 0.5 mg Documented by: [id number] Sodium Chloride (Nss 1000ml) 1,000 mls @ 999 mls/hr IV .Q1H1M MEGHNA Stop: 09/06/18 21:30 Last Infusion: 09/06/18 21:54 Dose: 0 mls/hr Documented by: [id number] Admin: 09/06/18 20:36 Dose: 999 mls/hr Documented by: [id number] Ceftriaxone Sodium (Rocephin) 1,000 mg in 50 mls @ 100 mls/hr IV NOW STA Stop: 09/06/18 23:37 Last Infusion: 09/06/18 23:43 Dose: 0 mls/hr Documented by: [id number] Admin: 09/06/18 23:13 Dose: 100 mls/hr Documented by: [id number] Ondansetron HCl (Zofran) 4 mg IV NOW STA Stop: 09/06/18 22:13 Last Admin: 09/06/18 22:20 Dose: 4 mg Documented by: [id number] Imaging Data Radiologist's Impression: Radiology results as stated below per my review and the radiologist's interpretation: XR chest 1V portable HISTORY: weakness COMPARISON: Chest 06/24/2018. FINDINGS: The lungs are clear. Cardiac silhouette is normal in size. No pleural effusions. No pneumothorax. Spinal stimulator leads are noted. These remain unchanged in position. IMPRESSION: No acute process. Electronically signed by: Tom Ba M.D. 09/06/2018 8:[address] CT DOSE: 729.78 mGycm HISTORY: right leg weakness TECHNIQUE: Multiaxial CT images of the head were performed without the use of intravenous contrast. Automated exposure control was utilized for this study. A dose lowering technique was utilized adhering to the principles of ALARA. Comparison: Head CT 01/22/2017. Findings: The paranasal sinuses and mastoid air cells are clear. The calvarium and skull base are intact. The ventricles and sulci are within normal limits. There is no mass, hematoma, midline shift, or acute infarct. Impression: No acute intracranial abnormality. Electronically signed by: Tom Ba M.D. 09/06/2018 10:00 PM ECG Data Attestation: I personally reviewed and interpreted this ECG as follows: Indication: weakness Rate (beats per minute): 86 Rhythm: normal sinus Findings: no PAC, no PVC, no ST depression and no ST elevation Blood Pressure Blood Pressure Findings: Elevated blood pressure Blood Pressure Disposition: further management by hospitalist Discharge Plan Visit Data Chief Complaint: Weakness Stated Complaint: LEFT SIDED WEAKNESS ED Provider: Liban Barnes Discharge Problem: Stroke-like symptoms, Right leg weakness, UTI (urinary tract infection) Patient Disposition: Being Evaluated by Hospitalist Forms Stand Alone Forms: My [facility] Prescriptions Prescriptions: No Action levothyroxine [Synthroid] 137 mcg tablet 137 mcg PO QAM RF: 0 bupropion HCl 75 mg tablet 150 mg PO BID RF: 0 pantoprazole 40 mg tablet,delayed release (DR/EC) 40 mg PO QAM RF: 0 Chantix 1 mg Tablet 1 mg PO BID RF: 0 hydrocodone-acetaminophen 10-325 mg tablet 1 tab PO TID PRN (Reason: Pain) RF: 0 bmemnzpdsh-nylnjomgwr-yti-cod [id number] mg capsule 1 tab PO DIRECTED PRN (Reason: Headache) RF: 0 ondansetron HCl 4 mg tablet 4 mg PO Q6H PRN (Reason: Nausea) RF: 0 cyclobenzaprine 10 mg tablet 10 mg PO BID PRN (Reason: Muscle Pain) RF: 0 Novolog U-100 Insulin aspart 100 unit/mL Solution SUBCUT TIDM RF: 0 Lantus Solostar U-100 Insulin 100 unit/mL (3 mL) insulin pen 22 unit subcut QPM RF: 0 Referrals Referrals: Irma Fry MD [Primary Care Provider] - Discharge Problem: UTI (urinary tract infection) Qualifiers: Urinary tract infection type: site unspecified Hematuria presence: with hematuria Qualified Code(s): N39.0 - Urinary tract infection, site not specified The scribe's documentation has been prepared under my direction and personally reviewed by me in its entirety. I confirm that the note above accurately reflects all work, treatment, procedures, and medical decision making performed by me.
[2018-09-06 21:37] LABS: Alanine Aminotransferase 36 U/L (12-78); Albumin Level 3.6 gm/dl (3.4-5.0); Aspartate Aminotransferase 25 U/L (15-37); Blood Urea Nitrogen 8 mg/dl (7-18); Calcium 9.8 mg/dl (8.5-10.1); Carbon Dioxide 30 mmol/L (21-32); Chloride 103 mmol/L (98-107); Creatinine Clr Calc Pharmacy 83.8 ml/min; Est GFR (African American) 101.2; Est GFR (Non-African American) 87.3; Glucose 136 mg/dl (70-99); Magnesium 2.1 mg/dl (1.8-2.4); Potassium 3.5 mmol/L (3.5-5.1); Sodium 140 mmol/L (136-145)
[2018-09-06 21:48] LABS: Albumin Globulin Ratio 0.9 (0.9-2); Alkaline Phosphatase 144 U/L (45-117); Bilirubin,Total 0.4 mg/dl (0.2-1); Globulin 3.9 gm/dl (2.5-4.0); Total Protein 7.5 gm/dl (6.4-8.2); Troponin I < 0.015 ng/ml (0-0.045)
[2018-09-06 22:00] LABS: T4 Free Thyroxine 1.48 ng/dl (0.8-1.6)
--- NOTE | 2018-09-06 22:01 | CT Scan Report ---
HEAD CT NONCONTRAST CT DOSE: 729.78 mGycm HISTORY: right leg weakness TECHNIQUE: Multiaxial CT images of the head were performed without the use of intravenous contrast. A utomated exposure control was utilized for this study. A dose lowering technique was utilized adheri ng to the principles of ALARA. Comparison: Head CT 01/22/2017. Findings: The paranasal sinuses and mastoid air cells are clear. The calvarium and skull base are int act. The ventricles and sulci are within normal limits. There is no mass, hematoma, midline shift, or acute infarct. Impression: No acute intracranial abnormality. Electronically signed by: Tom Ba M.D. 09/06/2018 10:00 PM
[2018-09-06] MEDS ORDERED: HYDROmorphone INJ 0.5 MG/0.5 ML SYR IV STA (22:12)
[2018-09-06] MEDS ORDERED: ONDANSETRON INJ 2 MG/ML 2 ML VIAL IV STA (22:12)
[2018-09-06 22:17] LABS: Appearance Urine Turbid (Clear); Bacteria Urine Automated 2+ (Negative); Bilirubin Urine Negative (Negative); Blood Urine 1+ (Negative); Cast Urine Automated 0 /lpf (0-5); Color Urine Dark Yellow; Glucose Urine UA Negative (Negative); Ketones Urine Negative (Negative); Leukocyte Esterase Urine 3+ (Negative); Nitrite Urine Positive (Negative); Protein Urine Trace (Negative); Specific Gravity Urine 1.014 (1.000-1.030); Urobilinogen Urine Negative (Negative); WBC Urine Automated >30 /hpf (0-5)
[2018-09-06] MEDS ORDERED: ASPIRIN CHEW 324 MG PO STA (23:07)
[2018-09-06] MEDS ORDERED: cefTRIAXone SODIUM 1,000 MG/50 ML BAG IV STA (23:08)
--- NOTE | 2018-09-07 01:33 | History & Physical Report ---
Date of Service September 07, 2018 Assessment & Plan (1) Right leg weakness: Rule out CVA Rule out mononeuropathy LUE pain, weakness, possible cervical radiculopathy secondary to recent fall from 2 weeks ago Complicated UTI, no sepsis COPD, past tobacco abuse, no acute lung issues currently chronic back pain /postlaminectomy syndrome status post spinal cord stimulator placement hyperlipidemia as per records DM 2, insulin requiring, significantly improved control after gastric bypass, most recent outpatient hemoglobin A1c was 6.6 last July 2018 Medical telemetry Neurochecks MRI/MRA of the brain RE RLE weakness continue Aspirin for secondary stroke prevention until MRI, MRA brain results known. Neurology consult RE RLE weakness MRI cervical spine, Orthopedics spine consult RE left upper extremity weakness, possible cervical radiculopathy Further management pending MRI results. Follow urine cultures, IV Cefepime basal insulin, ISS BG goal 1 40-180, carb count coverage PT OT eval DVT prophylaxis SCDs for now until cervical spine MRI results known Full code History of Present Illness Chief Complaint: Right leg weakness, worsening left upper extremity weakness/pain Primary Care Provider: Irma Fry MD History obtained from patient and records. Medical history significant for COPD, past tobacco abuse, chronic back pain status post surgery, postlaminectomy syndrome status post spinal cord stimulator placement, NAFLD, hyperlipidemia, hypothyroidism, depression, DM 2, insulin requiring, history of gastric bypass. Recent confinement October 2016 for headache, possible migraine attack. About 3 weeks ago, patient had a mechanical fall causing patient to hit her left shoulder against a closet. Patient noted achy neck pain, LUE shooting pain symptoms left upper extremity somewhat weaker than usual. No chest pain, no S OB. No unusual headache symptoms. Patient seen at PCPs office around 3 weeks ago. Left shoulder x-ray showed arthritis, calcific tendinitis of the rotator cuff. PT recommended if pain would persist. Persistent LUE pain, weakness subsequently noted. The last week, patient also noted bladder discomfort symptoms reminiscent of UTI. No fever no chills. Yesterday morning, patient noted right lower extremity weakness without unusual back pain complaints. No fever, no chills. At the ER, patient received Aspirin for stroke prophylaxis. IV Ceftriaxone given for UTI. Medical History as above Surgical History : Back surgery, gastric bypass, appendectomy, tonsillectomy, ANSHU, bilateral oophorectomy, cholecystectomy, hernia repair Family History : Diabetes, breast cancer, pancreatic cancer Personal/Social history : Past tobacco abuse, no EtOH intake, disabled Allergies Allergy/AdvReac Type Severity Reaction Status Date / Time Iodinated Contrast- Oral and Allergy Unknown ANAPHYLAXIS Verified 09/06/18 22:46 IV Dye omeprazole Allergy Unknown ANAPHYLAXIS Verified 09/06/18 22:46 peanut Allergy Unknown LIPS SWELL Verified 09/06/18 22:46 FROM PEANUT SHELL DUST erythromycin base AdvReac Unknown GI UPSET Verified 09/06/18 22:46 Home Medications Home Medications Medication Instructions Recorded Confirmed Type qyeruukbyd-dnxtlwlpfv-ncr-cod 1 tab PO DIRECTED PRN 06/01/18 09/06/18 History hydrocodone-acetaminophen 1 tab PO TID PRN 06/01/18 09/06/18 History ondansetron HCl 4 mg PO Q6H PRN 06/01/18 09/06/18 History pantoprazole 40 mg PO QAM 06/01/18 09/06/18 History varenicline [Chantix] 1 mg PO BID 06/01/18 09/06/18 History bupropion HCl 150 mg PO BID 06/24/18 09/06/18 History levothyroxine [Synthroid] 137 mcg PO QAM 06/24/18 09/06/18 History cyclobenzaprine 10 mg PO BID PRN 09/06/18 09/06/18 History insulin aspart U-100 [Novolog 0 unit SUBCUT TIDM 09/06/18 09/06/18 History U-100 Insulin aspart] insulin glargine [Lantus Solostar 22 unit SUBCUT QPM 09/06/18 09/06/18 History U-100 Insulin] Past Med/Surg History Medical History Fibromyalgia (Chronic) Fatty liver (Acute 09/29/10) Hyperglycemia (Acute) TIA (transient ischemic attack) Tobacco dependence syndrome (Acute 09/29/10) Surgical History Hx of gastric bypass Social History Preferred Language: Czech Beliefs That Will Affect Care: None Current Living Situation: Spouse and Family Feels Safe at Home: Yes Safety Concerns: Feels Safe At This Time Smoking Status: Former smoker Tobacco Type: cigarettes Do You Dip or Chew Tobacco: No Smoking End Date: 11/06/2017 Hx Alcohol Use: No Hx Substance Use: No Review of Systems Review of Systems: As per HPI, all 10 systems reviewed, all other ROS negative Physical Exam Physical Exam: GENERAL: uncomfortable, slightly teary-eyed, no respiratory distress SKIN: Normal color, warm HEENT: [place] palpebral conjunctivae, no ptosis, dry buccal mucosa NECK : Tenderness left neck, some limitation in R OM CHEST : CTA, no tenderness HEART : RRR, no obvious murmurs ABDOMEN: Some distention, nontender EXTREMITIES : No LE swelling/tenderness, no other conspicuous deformities noted NEUROLOGIC : Coherent, no facial asymmetry, MMTs RUE 5/5, LUE 4/5, RLE 3/5, LLE 5/5, gait and stance not assessed Results & Data Vital Signs (Past 12 Hours) Vital Signs Temp Pulse Pulse Resp BP BP Pulse Ox 09/07/18 01:00 89 16 117/85 97 09/06/18 23:12 92 H 16 130/88 97 09/06/18 22:39 85 20 156/106 H 98 09/06/18 21:59 89 18 156/106 H 100 09/06/18 20:37 91 H 18 98 09/06/18 20:06 36.4 C L 107 H 20 132/86 97 Laboratory Results Laboratory Results WBC 10.46 K/uL (4.8-10.8) 09/06/18 20:55 RBC 4.84 M/uL (4.2-5.4) 09/06/18 20:55 Hgb 14.0 g/dL (12.0-16.0) 09/06/18 20:55 Hct 41.9 % (37-47) 09/06/18 20:55 MCV 86.6 fL (80-100) 09/06/18 20:55 MCH 28.9 pg (25-34) 09/06/18 20:55 MCHC 33.4 g/dL (32-36) 09/06/18 20:55 RDW Std Deviation 42.5 fL (36.4-46.3) 09/06/18 20:55 RDW Coeff of Lionel 13.3 % (11.5-14.5) 09/06/18 20:55 Plt Count 233 K/uL (130-400) 09/06/18 20:55 MPV 12.3 fL (7.4-10.4) H 09/06/18 20:55 Immature Gran % (Auto) 0.2 % 09/06/18 20:55 Neut % (Auto) 55.9 % 09/06/18 20:55 Lymph % (Auto) 36.8 % 09/06/18 20:55 [place] % (Auto) 5.4 % 09/06/18 20:55 Eos % (Auto) 1.5 % 09/06/18 20:55 Baso % (Auto) 0.2 % 09/06/18 20:55 Immature Gran # (Auto) 0.02 K/uL (0.00-0.02) 09/06/18 20:55 Neut # (Auto) 5.84 K/uL (1.4-6.5) 09/06/18 20:55 Lymph # (Auto) 3.85 K/uL (1.2-3.4) H 09/06/18 20:55 [place] # (Auto) 0.57 K/uL (0.11-0.59) 09/06/18 20:55 Eos # (Auto) 0.16 K/uL (0-0.5) 09/06/18 20:55 Baso # (Auto) 0.02 K/uL (0-0.2) 09/06/18 20:55 Sodium 140 mmol/L (136-145) 09/06/18 20:55 Potassium 3.5 mmol/L (3.5-5.1) 09/06/18 20:55 Chloride 103 mmol/L (98-107) 09/06/18 20:55 Carbon Dioxide 30 mmol/L (21-32) 09/06/18 20:55 Anion Gap 7.0 (3-11) 09/06/18 20:55 BUN 8 mg/dl (7-18) 09/06/18 20:55 Creatinine 0.79 mg/dl (0.6-1.2) 09/06/18 20:55 Est Cr Clr Drug Dosing 83.8 ml/min 09/06/18 20:55 Est GFR ( Amer) 101.2 09/06/18 20:55 Est GFR (Non-Af Amer) 87.3 09/06/18 20:55 BUN/Creatinine Ratio 10.0 (10-20) 09/06/18 20:55 Glucose 136 mg/dl (70-99) H 09/06/18 20:55 Calcium 9.8 mg/dl (8.5-10.1) 09/06/18 20:55 Magnesium 2.1 mg/dl (1.8-2.4) 09/06/18 20:55 Total Bilirubin 0.4 mg/dl (0.2-1) 09/06/18 20:55 AST 25 U/L (15-37) 09/06/18 20:55 ALT 36 U/L (12-78) 09/06/18 20:55 Alkaline Phosphatase 144 U/L (45-117) H 09/06/18 20:55 Troponin I < 0.015 ng/ml (0-0.045) 09/06/18 20:55 Total Protein 7.5 gm/dl (6.4-8.2) 09/06/18 20:55 Albumin 3.6 gm/dl (3.4-5.0) 09/06/18 20:55 Globulin 3.9 gm/dl (2.5-4.0) 09/06/18 20:55 Albumin/Globulin Ratio 0.9 (0.9-2) 09/06/18 20:55 TSH 0.006 uIu/ml (0.300-4.500) L 09/06/18 20:55 Free T4 1.48 ng/dl (0.8-1.6) 09/06/18 20:55 Total T3 1.07 ng/ml (0.60-1.81) 09/06/18 20:55 Urine Color Dark Yellow 09/06/18 22:04 Urine Appearance Turbid (Clear) A 09/06/18 22:04 Urine pH 5.0 (4.5-7.5) 09/06/18 22:04 Ur Specific [place] 1.014 (1.000-1.030) 09/06/18 22:04 Urine Protein Trace (Negative) H 09/06/18 22:04 Urine Glucose (UA) Negative (Negative) 09/06/18 22:04 Urine Ketones Negative (Negative) 09/06/18 22:04 Urine Blood 1+ (Negative) H 09/06/18 22:04 Urine Nitrite Positive (Negative) A 09/06/18 22:04 Urine Bilirubin Negative (Negative) 09/06/18 22:04 Urine Urobilinogen Negative (Negative) 09/06/18 22:04 Ur Leukocyte Esterase 3+ (Negative) H 09/06/18 22:04 Urine WBC (Auto) >30 /hpf (0-5) H 09/06/18 22:04 Urine RBC (Auto) 5-10 /hpf (0-4) H 09/06/18 22:04 U Hyaline Cast (Auto) 0 /lpf (0-5) 09/06/18 22:04 U Epithel Cells (Auto) 10-20 /lpf (0-5) H 09/06/18 22:04 Urine Bacteria (Auto) 2+ (Negative) H 09/06/18 22:[address] head: No acute intracranial abnormality Chest x-ray showed no acute process EKG as per my interpretation :Rate 85, NSR, nonspecific ST-T wave abnormalities
[2018-09-07] MEDS ORDERED: KETOROLAC TROMETHAMINE 15 MG/ML VIAL IV STA (01:49)
[2018-09-07] MEDS ORDERED: CEFEPIME 20 ML IV STA (02:16)
[2018-09-07 02:24] LABS: Lyme Ab IgG w/WB Rflx Negative (Negative)
[2018-09-07 02:25] LABS: Lyme Ab IgM w/WB Rflx Negative (Negative)
[2018-09-07] MEDS ORDERED: CARBOHYDRATES FOR HYPOGLYCEMIA PO PRN (02:53)
[2018-09-07] MEDS ORDERED: NITROGLYCERIN SL 0.4 MG/TAB TAB SL PRN (02:53)
[2018-09-07] MEDS ORDERED: LACTATED RINGER'S 1,000 ML IV ONE (02:53)
[2018-09-07] MEDS ORDERED: GLUCOSE 40% GEL 15 GM TUBE PO PRN (02:53)
[2018-09-07] MEDS ORDERED: GLUCOSE 10 TABS/TUBE PO PRN (02:53)
[2018-09-07] MEDS ORDERED: GLUCAGON FOR INJ 1 MG VIAL SQ PRN (02:53)
[2018-09-07] MEDS ORDERED: DEXTROSE 50% 50 ML SYRINGE IV PRN (02:53)
[2018-09-07] MEDS ORDERED: MoRPHine SULFATE 4 MG/ML 1 ML CARP\\VIAL IV PRN (02:53)
[2018-09-07] MEDS ORDERED: ACETAMINOPHEN 325 MG TAB PO PRN (02:53)
[2018-09-07] MEDS ORDERED: KETOROLAC TROMETHAMINE 15 MG/ML VIAL IV PRN (02:53)
[2018-09-07] MEDS: INSULIN ASPART 100 UNITS/ML 3 ML PEN SC SCH ×5 (03:16→20:47)
[2018-09-07] MEDS: HYDROCODONE/ACETAMINOPHEN 10/325 TAB PO PRN ×3 (05:39→19:17)
[2018-09-07 05:55] LABS: Basophils # (auto) 0.01 K/uL (0-0.2); Basophils % (auto) 0.2 %; Eosinophils # (auto) 0.12 K/uL (0-0.5); Eosinophils % (auto) 1.8 %; Hematocrit (blood only) 36.1 % (37-47); Hemoglobin 11.9 g/dL (12.0-16.0); Immature Granulocytes # (auto) 0.01 K/uL (0.00-0.02); Immature Granulocytes % (auto) 0.2 %; Lymphocytes # (auto) 3.01 K/uL (1.2-3.4); Lymphocytes % (auto) 45.3 %; Mean Corpuscular Volume 86.6 fL (80-100); Mean Platelet Volume 12.1 fL (7.4-10.4); Monocytes # (auto) 0.41 K/uL (0.11-0.59); Monocytes % (auto) 6.2 %; Neutrophils # (auto) 3.09 K/uL (1.4-6.5); Neutrophils % (auto) 46.3 %; Platelet Count 164 K/uL (130-400); RDW Coefficient of Variation 13.4 % (11.5-14.5); RDW Standard Deviation 42.9 fL (36.4-46.3); Red Blood Count 4.17 M/uL (4.2-5.4); White Blood Count 6.65 K/uL (4.8-10.8)
[2018-09-07 06:29] LABS: BUN Creatinine Ratio 11.1 (10-20); Calcium 8.9 mg/dl (8.5-10.1); Creatinine Clr Calc Pharmacy 110.4 ml/min; Est GFR (African American) 123.2; Est GFR (Non-African American) 106.3; Potassium 3.4 mmol/L (3.5-5.1)
[2018-09-07] MEDS ORDERED: LEVOTHYROXINE SODIUM 137 MCG TABLET PO SCH (06:30)
[2018-09-07 07:39] LABS: Estimated Average Glucose 148 mg/dl; Hemoglobin A1C 6.8 % (4.5-5.6)
[2018-09-07] MEDS: buPROPion HCl 75 MG TABLET PO SCH ×2 (07:50→20:50)
[2018-09-07] MEDS: PANTOprazole 40 MG TAB PO SCH (07:50)
[2018-09-07] MEDS: CYCLOBENZAPRINE HCL 10 MG TAB PO PRN (07:51)
[2018-09-07] MEDS: VARENICLINE 1 MG TAB PO SCH ×2 (07:51→20:50)
[2018-09-07] MEDS: INSULIN GLARGINE SOLOSTAR 100 UNITS/ML 3 ML PEN SQ SCH (07:52)
[2018-09-07] MEDS ORDERED: CEFEPIME CONSULT ACTIVE PRN (09:00)
[2018-09-07] MEDS ORDERED: ASPIRIN 81 MG ECTAB PO SCH (09:00)
--- NOTE | 2018-09-07 13:17 | Neurology Consultation ---
Date of Consultation September 07, 2018 Assessment & Plan (1) Right leg weakness: 1. CT head with no acute findings 2. MRI head and neck- unable to have due to neuro stim 3. RLE dorsi flex limited on right - extroversion introversion intact common peroneal nerve likely cause and should resolve over time avoid crossing legs 4. optimize DM control 5. ortho consult for any further needs for left arm and shoulder pain 6. PT/OT for any further needs may need a stiff support until drop foot resolves 7. EMG in 6-8 weeks to evaluate for resolve of symptoms. will follow up as needed with neurology (2) UTI (urinary tract infection): 1, UTI- cefapime IV - treat to culture Supervising Physician Co-Signing Physician Notes I have seen and discussed above patient with Dr Dallas Palma. Patient was seen and examined this afternoon at bedside. No family at bedside. Patient pleasantly resting in bed. She has history of lumbar spine surgery x2 and IDDM (with history of HA1c in the 's) admitted for right foot drop. Reports numbness on dorsum of foot. Right foot is weak which is new. Left foot is also weak but not new. She reports 80 lb weight loss since gastric bypass. She has spinal cord stimulator. On examine, she has absent knee and ankle jerks. Right ankle dorsiflexion is 3/5. Left ankle dorsiflexion is 4/5. Numbness to light touch in L5 or dorsum of left foot. Sensation is intact in right sural distribution. Plantar flexion strength is 5/5. Hip flexion is symmetric. Right biceps 5/5 although reporting neck pain. She is getting PT for neck pain. CT head non contrast reviewed. Normal appearing CT head. I believe this patient has a right peroneal neuropathy in the setting of probable diabetic neuropathy vs focal entrapment neuropathy at the knee. On examine she has bilateral ankle dorsiflexion weakness (R>L) which would favor a diabetic peripheral neuropathy. Low suspicion for L5 radiculopathy as she denies radicular symptoms. Recommend right ankle AFO. Will likely need EMG in 6-8 weeks if symptoms fail to improve. Physical therapy as outpatient. Follow up with neurology as outpatient with Dr. Ke MD or Violette Aldrich PA-C. Please call with any further questions or concerns. History of Present Illness Reason for Consultation: RLE weakness Requesting Physician: Zuly Sen DO Attending Physician: Zuly Sen DO History of Present Illness Arely is a 52 year old female with PMH fibromyalgia, cervical disc disease, hyperglycemia, lfet arm pain, TIA, previous tobacco abuse, gastric bipass 11/16 17, lumbar surgeries x 2 and neurostim, who presents to the ED for right leg weakness that started about 6 hours prior to presentation. She has numbness in her right foot and a foot drop which is causing a slapping movement when she is walking. She also has left shoulder pain, and states that this began after she had physical therapy today. She has a pinched nerve and muscle spasms in the left side of her neck and states that she has been doing physical therapy for this. She has numbness in her left fingers and was diagnosed in the past with carpal tunnel. She has had increased frequency of urination since she had gastric bypass surgery in October of 2017. She has some issues with her esophagus after the gastric bypass surgery but now that has resolved. She states that she has had two previous back surgeries and states that she has a stimulator in place. Since gastric bipass she has been crossing her legs. She is currently received IV Cefepime. denies CP, SOB, abdominal pain, vision changes, N, V, one side weakness, numbness tingling, no numbness in peritoneum , +L hand numbness, R foot numbness and weakness. Allergies Allergy/AdvReac Type Severity Reaction Status Date / Time Iodinated Contrast- Oral and Allergy Unknown ANAPHYLAXIS Verified 09/06/18 22:46 IV Dye omeprazole Allergy Unknown ANAPHYLAXIS Verified 09/06/18 22:46 peanut Allergy Unknown LIPS SWELL Verified 09/06/18 22:46 FROM PEANUT SHELL DUST erythromycin base AdvReac Unknown GI UPSET Verified 09/06/18 22:46 Home Medications Home Medications Medication Instructions Recorded Confirmed Type iinaxxsgtm-[id number]-cod 1 tab PO DIRECTED PRN 06/01/18 09/06/18 History hydrocodone-acetaminophen 1 tab PO TID PRN 06/01/18 09/06/18 History ondansetron HCl 4 mg PO Q6H PRN 06/01/18 09/06/18 History pantoprazole 40 mg PO QAM 06/01/18 09/06/18 History varenicline [Chantix] 1 mg PO BID 06/01/18 09/06/18 History bupropion HCl 150 mg PO BID 06/24/18 09/06/18 History levothyroxine [Synthroid] 137 mcg PO QAM 06/24/18 09/06/18 History cyclobenzaprine 10 mg PO BID PRN 09/06/18 09/06/18 History insulin aspart U-100 [Novolog 0 unit SUBCUT TIDM 09/06/18 09/06/18 History U-100 Insulin aspart] insulin glargine [Lantus Solostar 22 unit SUBCUT QPM 09/06/18 09/06/18 History U-100 Insulin] Patient History Medical History Fibromyalgia (Chronic) Fatty liver (Acute 09/29/10) Hyperglycemia (Acute) TIA (transient ischemic attack) Tobacco dependence syndrome (Acute 09/29/10) Surgical History Hx of gastric bypass Social History Preferred Language: Lithuanian Beliefs That Will Affect Care: None Current Living Situation: Spouse and Family Feels Safe at Home: Yes Safety Concerns: Feels Safe At This Time Smoking Status: Former smoker Tobacco Type: cigarettes Do You Dip or Chew Tobacco: No Smoking End Date: 11/06/2017 Hx Alcohol Use: No Hx Substance Use: No Physical Exam Physical Exam: Physical Exam: Constitutional: appearance nourished Ears, Nose, Mouth and Throat: mucous membranes moist, no injection and skin normal, eyes normal Cardiovascular: normal S-1 and S-2 and regular rate and rhythm Respiratory: clear to auscultation (CTA) and no rales, rhonchi or wheeze Musculoskeletal: no peripheral edema and good distal pulses Skin: no stigmata of neurocutaneous disease noted and normal and intact Eyes: extraocular muscles intact (EOMI) and pupils equal, round and reactive to light (PERRL) NEUROLOGIC EXAMINATION: Mental status: Alert and interactive Oriented to full date and location Oriented to person Speech fluent with no evidence of aphasia Cranial Nerves smile eye brow raise symmetric, tongue midline Reflexes: Deep tendon reflexes were symmetrical decreased LE. unable to illicit heel jerk on right. Sensory: intact to light and cool touch Coordination: finger to nose no bi pass Gait/Stance: Posture sitting up in bed Motor: Negative for pronator drift of out stretched arms with eyes closed. Strength: Normal - 5/5 all extremities except plantar extension on right, inversion extroversion intact bilaterally Results & Data Vital Signs (Past 12 Hours) Vital Signs Temp Pulse Pulse Resp BP BP Pulse Ox 09/07/18 11:24 36.5 C 75 18 105/68 97 09/07/18 08:00 36.5 C 73 75 18 109/73 94 09/07/18 03:00 36.4 C L 96 H 90 18 114/75 93 09/07/18 02:49 86 18 124/92 95 Laboratory Results Abnormal lab results 09/06/18 09/06/18 09/06/18 Range/Units 20:55 20:55 22:04 RBC (4.2-5.4) M/uL Hgb (12.0-16.0) g/dL Hct (37-47) % MPV 12.3 H (7.4-10.4) fL Lymph # (Auto) 3.85 H (1.2-3.4) K/uL Potassium (3.5-5.1) mmol/L Chloride (98-107) mmol/L Glucose 136 H (70-99) mg/dl POC Glucose (70-99) Hemoglobin A1c (4.5-5.6) % Alkaline Phosphatase 144 H (45-117) U/L Triglycerides (0-150) mg/dl TSH 0.006 L (0.300-4.500) uIu/ml Urine Appearance Turbid A (Clear) Urine Protein Trace H (Negative) Urine Blood 1+ H (Negative) Urine Nitrite Positive A (Negative) Ur Leukocyte Esterase 3+ H (Negative) Urine WBC (Auto) >30 H (0-5) /hpf Urine RBC (Auto) 5-10 H (0-4) /hpf U Epithel Cells (Auto) 10-20 H (0-5) /lpf Urine Bacteria (Auto) 2+ H (Negative) 09/07/18 09/07/18 09/07/18 Range/Units 03:04 05:32 05:32 RBC 4.17 L (4.2-5.4) M/uL Hgb 11.9 L (12.0-16.0) g/dL Hct 36.1 L (37-47) % MPV 12.1 H (7.4-10.4) fL Lymph # (Auto) (1.2-3.4) K/uL Potassium 3.4 L (3.5-5.1) mmol/L Chloride 110 H (98-107) mmol/L Glucose 101 H (70-99) mg/dl POC Glucose 132 H (70-99) Hemoglobin A1c (4.5-5.6) % Alkaline Phosphatase (45-117) U/L Triglycerides 158 H (0-150) mg/dl TSH (0.300-4.500) uIu/ml Urine Appearance (Clear) Urine Protein (Negative) Urine Blood (Negative) Urine Nitrite (Negative) Ur Leukocyte Esterase (Negative) Urine WBC (Auto) (0-5) /hpf Urine RBC (Auto) (0-4) /hpf U Epithel Cells (Auto) (0-5) /lpf Urine Bacteria (Auto) (Negative) 09/07/18 09/07/18 09/07/18 Range/Units 05:32 05:32 07:31 RBC (4.2-5.4) M/uL Hgb (12.0-16.0) g/dL Hct (37-47) % MPV (7.4-10.4) fL Lymph # (Auto) (1.2-3.4) K/uL Potassium (3.5-5.1) mmol/L Chloride (98-107) mmol/L Glucose (70-99) mg/dl POC Glucose 110 H (70-99) Hemoglobin A1c 6.8 H (4.5-5.6) % Alkaline Phosphatase (45-117) U/L Triglycerides (0-150) mg/dl TSH < 0.005 L (0.300-4.500) uIu/ml Urine Appearance (Clear) Urine Protein (Negative) Urine Blood (Negative) Urine Nitrite (Negative) Ur Leukocyte Esterase (Negative) Urine WBC (Auto) (0-5) /hpf Urine RBC (Auto) (0-4) /hpf U Epithel Cells (Auto) (0-5) /lpf Urine Bacteria (Auto) (Negative) 09/07/18 Range/Units 11:29 RBC (4.2-5.4) M/uL Hgb (12.0-16.0) g/dL Hct (37-47) % MPV (7.4-10.4) fL Lymph # (Auto) (1.2-3.4) K/uL Potassium (3.5-5.1) mmol/L Chloride (98-107) mmol/L Glucose (70-99) mg/dl POC Glucose 102 H (70-99) Hemoglobin A1c (4.5-5.6) % Alkaline Phosphatase (45-117) U/L Triglycerides (0-150) mg/dl TSH (0.300-4.500) uIu/ml Urine Appearance (Clear) Urine Protein (Negative) Urine Blood (Negative) Urine Nitrite (Negative) Ur Leukocyte Esterase (Negative) Urine WBC (Auto) (0-5) /hpf Urine RBC (Auto) (0-4) /hpf U Epithel Cells (Auto) (0-5) /lpf Urine Bacteria (Auto) (Negative) Diagnostic Findings CXR- he lungs are clear. Cardiac silhouette is normal in size. No pleural effusions. No pneumothorax. Spinal stimulator leads are noted. These remain unchanged in position. CT head- The paranasal sinuses and mastoid air cells are clear. The calvarium and skull base are intact. The ventricles and sulci are within normal limits. There is no mass, hematoma, midline shift, or acute infarct. (1) UTI (urinary tract infection) Hematuria presence: with hematuria Urinary tract infection type: site unspecified Qualified Code(s): N39.0 - Urinary tract infection, site not specified; R31.9 - Hematuria, unspecified
[2018-09-07] MEDS: CEFEPIME 2,000 MG in SYRINGE 7.5 ML IV SCH (14:38)
--- NOTE | 2018-09-07 14:57 | Hospitalist Progress Note ---
Date of Service September 07, 2018 Assessment & Plan (1) Cervical radiculopathy: Ortho spine to evaluate. Cannot obtain c-spine MRI 2/2 spinal stimulator. Pain control . (2) Peripheral neuropathy: suggested gabapentin we can put it into a carrier. However, she has tried this before and the capsules dont abosrb well . Cont PT/OT (3) UTI (urinary tract infection): cefepime (4) Fibromyalgia: cont home regimen. (5) Cirrhosis: 2/2 SOTOMAYOR. Liver biopsy was performed for Dx during her most recent gastric bypass. no more than 2000 mg of APAP per day. (6) Chronic pain: chronic hydrocodone use for back pain. Takes 0.5tab q3hrs to lessen Tylenol. (7) Hyperthyroidism: Lost weight s/p gastric bypass. Reporting hyperthyroid symptoms. Likely overdosed, and needs dose reduction after weight loss. Cont at 50mcg PO daily instead of 137mcg PO daily. Recheck TSH in 6-8 weeks as outpatient. (8) DVT prophylaxis: warfarin Full Dispo-likely to home in am. Zuly Sen DO [facility] Hospitalist Subjective 52 yo F smoker who recently underwent gastric bypass surgery and lost alot of weight presented to the hospital 2/2 acute R foot drop. She reports injuring her leg after tripping on a chair with wheels in her home and running into the closet door. She was worked up for stroke, however, could not receive MRIs 2/2 a spinal stimulator that is in place. Per Neuro evaluation, she appears to have a peroneal nerve injury from the recent trauma as opposed to a stroke. She was instructed to follow up in the clinic in 6-8 weeks for EMG if it persists despite PT. She also reports on top of taking chronic hydrocodone for chronic back pain 2/2 multiple surgeries, she has acute worsening of her chronic cervical pain with radiculopathy. She has a positive Spurling's test on exam just with active motion. Ortho spine will evaluate her tomorrow. She was also found to have a UTI and states that she has persistent dysuria, with a persisitent UTI for the past 6 months. Review of Systems Review of Systems: All systems reviewed & are unremarkable except as noted in HPI & below Physical Exam Physical Exam: CONSTITUTIONAL: WNWD, vitals as above, generally well-appe aring EYES: EOMI bilaterally, PERRL, normal conjuctivae, no scleral icterus ENT: MMM NECK: trachea midline, no lymphadenopathy, normal thyroid RESPIRATORY: clear to auscultation bilaterally, no crackles, rales or wheezes, normal respiratory effort CARDIOVASCULAR: regular rate and rhythm, S1 and 2 heard without murmurs, gallops or rubs, no JVD, no peripheral edema GASTROINTESTINAL: normal bowel sounds, soft, nontender, no hepatomegaly, no guarding MUSCULOSKELETAL: strength 5/5 throughout except with dorsiflexion of right foot, which is 3/5, head is normocephalic and atraumatic SKIN: warm and dry NEUROLOGIC: patllar reflexes cannot be elicited. No facial palsy, no dysarthria. CN 2-12 intact, no sensory deficit, normal cognition, normal speech, no tremor PSYCHIATRIC: alert cooperative and oriented to person, place and time. Euthymic mood, makes good eye contact, language grossly intact Results & Data Vital Signs (Past 12 Hours) Vital Signs Temp Pulse Pulse Resp BP Pulse Ox 09/07/18 11:24 36.5 C 75 18 105/68 97 09/07/18 08:00 36.5 C 73 75 18 109/73 94 09/07/18 03:00 36.4 C L 96 H 90 18 114/75 93 Laboratory Results Short CBC 09/06/18 09/07/18 Range/Units 20:55 05:32 WBC 10.46 6.65 (4.8-10.8) K/uL Hgb 14.0 11.9 L (12.0-16.0) g/dL Hct 41.9 36.1 L (37-47) % Plt Count 233 164 (130-400) K/uL BMP 09/06/18 09/07/18 20:55 05:32 Sodium 140 145 Potassium 3.5 3.4 L Chloride 103 110 H Carbon Dioxide 30 28 BUN 8 7 Creatinine 0.79 0.60 Glucose 136 H 101 H Calcium 9.8 8.9 Cardiac Enzymes 09/06/18 Range/Units 20:55 Troponin I < 0.015 (0-0.045) ng/ml Liver Function 09/06/18 Range/Units 20:55 Total Bilirubin 0.4 (0.2-1) mg/dl AST 25 (15-37) U/L ALT 36 (12-78) U/L Alkaline Phosphatase 144 H (45-117) U/L Albumin 3.6 (3.4-5.0) gm/dl Urine 09/06/18 Range/Units 22:04 Urine Color Dark Yellow Urine Appearance Turbid A (Clear) Urine pH 5.0 (4.5-7.5) Ur Specific [place] 1.014 (1.000-1.030) Urine Protein Trace H (Negative) Urine Glucose (UA) Negative (Negative) Medications Administered Current Inpatient Medications Acetaminophen (Tylenol) 650 mg PO Q4H PRN PRN Reason: Pain or Fever Stop: 10/07/18 02:52 Hydrocodone Bitart/Acetaminophen ([place] 10) 1 tab PO QID PRN PRN Reason: Pain Stop: 09/21/18 02:52 Last Admin: 09/07/18 11:42 Dose: 1 tab Documented by: Aspirin (Ecotrin Ectab) 81 mg PO QAM MEGHNA Stop: 10/07/18 08:59 Last Admin: 09/07/18 07:50 Dose: 81 mg Documented by: Bupropion HCl (Wellbutrin) 150 mg PO BID [facility] Stop: 10/07/18 08:59 Last Admin: 09/07/18 07:50 Dose: 150 mg Documented by: Cyclobenzaprine HCl (Flexeril) 10 mg PO BID PRN PRN Reason: Muscle Spasm Stop: 10/07/18 02:52 Last Admin: 09/07/18 07:51 Dose: 10 mg Documented by: Dextrose (Dextrose 50%) 25 - 50 ml IV UD PRN; Protocol PRN Reason: Hypoglycemia Protocol Stop: 10/07/18 02:52 Glucagon (Glucagen) 1 mg SQ UD PRN; Protocol PRN Reason: Hypoglycemia Protocol Stop: 10/07/18 02:52 Glucose (Dex4 Glucose) 4 - 8 tabs PO UD PRN; Protocol PRN Reason: Hypoglycemia Protocol Stop: 10/07/18 02:52 Glucose (Glucose 40%) 15 - 30 gm PO UD PRN; Protocol PRN Reason: Hypoglycemia Protocol Stop: 10/07/18 02:52 Cefepime HCl 2,000 mg/ Syringe 20 mls @ 5 mls/min IV Q12H [facility] Stop: 09/17/18 13:59 Last Admin: 09/07/18 14:38 Dose: 5 mls/min Documented by: Lactated Ringer's (Lr) 1,000 mls @ 75 mls/hr IV .[id number] ONE Stop: 09/07/18 16:12 Last Admin: 09/07/18 03:09 Dose: 75 mls/hr Documented by: Promethazine HCl 12.5 mg/ (Sodium Chloride) 50.5 mls @ 202 mls/hr IV Q6H PRN PRN Reason: Nausea And Vomiting Stop: 10/07/18 02:52 Insulin Aspart (Novolog Flexpen) 0 units SC ACHS [facility] Stop: 10/07/18 02:52 Last Admin: 09/07/18 12:37 Dose: Not Given Documented by: Insulin Glargine (Lantus Solostar Pen) 20 units SQ DAILY [facility] Stop: 10/07/18 08:59 Last Admin: 09/07/18 07:52 Dose: 20 units Documented by: Ketorolac Tromethamine (Toradol) 15 mg IV Q4H PRN PRN Reason: Pain Stop: 09/12/18 02:52 Levothyroxine Sodium (Synthroid) 50 mcg PO DAILYBB [facility] Stop: 10/08/18 06:29 Miscellaneous (Carbohydrates For Hypoglycemia) 15 - 30 gm PO UD PRN PRN Reason: Hypoglycemia Treatment Stop: 10/07/18 02:52 Miscellaneous Information (Cefepime Consult Active) 1 ea N/A UD PRN PRN Reason: Consult Stop: 10/07/18 08:59 Morphine Sulfate (Morphine Sulfate) 4 mg IV Q6H PRN PRN Reason: Pain Stop: 09/21/18 02:52 Last Admin: 09/07/18 14:32 Dose: 4 mg Documented by: Nitroglycerin (Nitrostat) 0.4 mg SL UD PRN PRN Reason: Chest Pain Stop: 10/07/18 02:52 Pantoprazole Sodium (Protonix) 40 mg PO QAM [facility] Stop: 10/07/18 08:59 Last Admin: 09/07/18 07:50 Dose: 40 mg Documented by: Varenicline (Chantix) 1 mg PO BID [facility] Stop: 10/07/18 08:59 Last Admin: 09/07/18 07:51 Dose: 1 mg Documented by: (1) UTI (urinary tract infection) Hematuria presence: with hematuria Urinary tract infection type: site unspecified Qualified Code(s): N39.0 - Urinary tract infection, site not specified; R31.9 - Hematuria, unspecified
[2018-09-07] MEDS ORDERED: HYDROCODONE/ACETAMOPHEN 5/325MG TAB PO PRN (17:37)
[2018-09-07] MEDS ORDERED: ACETAMINOPHEN SOLN 500 MG/15.62 ML UDP PO SCH (17:45)
[2018-09-07] MEDS ORDERED: ONDANSETRON 4 MG OD TAB PO PRN (18:03)
[2018-09-07] MEDS: VITAMIN D PO SCH (20:48)
[2018-09-07] MEDS: CALCIUM PO SCH (20:48)
[2018-09-07] MEDS ORDERED: [UNRECOGNIZED DRUG - OTHER] PO SCH (21:00)
[2018-09-07] MEDS: PROMETHAZINE HCL 12.5 MG in SODIUM CHLORIDE 0.9% 50 ML IV PRN (21:30)
[2018-09-07] MEDS: DOCUSATE SODIUM SYRUP 100 MG/10 ML UDC PO SCH (23:09)
[2018-09-08] MEDS: CALCIUM PO SCH ×3 (01:21→20:31)
[2018-09-08] MEDS: CEFEPIME 2,000 MG in SYRINGE 7.5 ML IV SCH ×2 (01:21→13:51)
[2018-09-08] MEDS: VITAMIN D PO SCH ×3 (01:21→20:31)
[2018-09-08] MEDS: VARENICLINE 1 MG TAB PO SCH ×3 (01:21→20:28)
[2018-09-08] MEDS: HYDROCODONE/ACETAMINOPHEN 10/325 TAB PO PRN ×7 (01:28→23:34)
[2018-09-08] MEDS: LEVOTHYROXINE SODIUM 50 MCG TABLET PO SCH (05:58)
[2018-09-08] MEDS ORDERED: LEVOTHYROXINE SODIUM 50 MCG TABLET PO SCH (06:30)
[2018-09-08 06:47] LABS: Hematocrit (blood only) 39.4 % (37-47); Hemoglobin 12.6 g/dL (12.0-16.0); Mean Corpuscular Volume 87.4 fL (80-100); Mean Platelet Volume 12.4 fL (7.4-10.4); Platelet Count 169 K/uL (130-400); RDW Coefficient of Variation 13.2 % (11.5-14.5); RDW Standard Deviation 42.4 fL (36.4-46.3); Red Blood Count 4.51 M/uL (4.2-5.4); White Blood Count 6.48 K/uL (4.8-10.8)
[2018-09-08 07:19] LABS: BUN Creatinine Ratio 9.5 (10-20); Calcium 9.1 mg/dl (8.5-10.1); Creatinine Clr Calc Pharmacy 114.6 ml/min; Est GFR (African American) 124.6; Est GFR (Non-African American) 107.5; Magnesium 2.4 mg/dl (1.8-2.4); Potassium 3.7 mmol/L (3.5-5.1)
[2018-09-08] MEDS: INSULIN ASPART 100 UNITS/ML 3 ML PEN SC SCH ×4 (08:13→21:02)
[2018-09-08] MEDS: DOCUSATE SODIUM SYRUP 100 MG/10 ML UDC PO SCH (08:14)
[2018-09-08] MEDS: INSULIN GLARGINE SOLOSTAR 100 UNITS/ML 3 ML PEN SQ SCH (08:15)
[2018-09-08] MEDS: buPROPion HCl 75 MG TABLET PO SCH ×2 (08:15→20:28)
[2018-09-08] MEDS: PANTOprazole 40 MG TAB PO SCH (08:16)
[2018-09-08] MEDS: FLINTSTONES COMPLETE PO SCH (08:16)
[2018-09-08] MEDS: PROMETHAZINE HCL 12.5 MG in SODIUM CHLORIDE 0.9% 50 ML IV PRN (09:01)
--- NOTE | 2018-09-08 09:11 | CT Scan Report ---
CT cervical spine wo con CT DOSE: 491.88 mGycm CLINICAL HISTORY: 52 years-old Female with neck and arm pain. Acute neck pain without reported traum a COMPARISON: CT cervical spine 01/22/2017 TECHNIQUE: Multiple axial CT images of the cervical spine were obtained without contrast. A dose low ering technique was utilized adhering to the principles of ALARA. FINDINGS: Predental interval appears normal. No acute cervical spine fracture or subluxation identified. Cortic ated bone fragment posterior to C2 are unchanged measuring up to 9 mm suggestive of remote spinous pr ocess fracture. Mild disc space narrowing with spondylitic spurring at C7-T1. Mild spondylitic spurri ng of the upper thoracic levels. Mild multilevel facet arthrosis. Evaluation of the central canal and neuroforamina is better assessed by MRI. There is suggestion of mild multilevel foraminal narrowing. There is at least mild central canal stenosis at C6-C7. No prevertebral soft tissue swelling. Debris noted within the proximal esophagus. Lung apices are clear. No pneumothorax. IMPRESSION: No acute cervical spine fracture or subluxation. The above report was generated using voice recognition software. It may contain grammatical, syntax o r spelling errors. Electronically signed by: Lorenzo [email or web address] M.D. 09/08/2018 9:09 AM
--- NOTE | 2018-09-08 13:20 | Consultation ---
Date of Consultation September 08, 2018 Assessment & Plan (1) Cervical radiculopathy: At this point in time her cervical CT scan that she had this morning is inconclusive in terms of explaining an etiology of her neck and left upper extremity pain. It does appear to be radicular. She does have a spinal cord stimulator that is [employer] and was implanted 2 years ago. She states it is MRI compatible. I have spoken to MRI. They are going to make a copy of her card for her stimulator and contact [facility] to ensure that her spinal cord stim is MRI compatible. If so will pursue MRI of the cervical spine without contrast. This often is a more thorough study for evaluation than a CT scan. We will make further recommendations based upon MRI review. Supervising Physician Co-Signing Physician Notes Dr. Pedro Hansen History of Present Illness Ms. Judd is a 52-year-old female that we are asked to see in consultation in regards to cervical and left upper extremity pain. She has had chronic neck pain for many years that she describes as having good and bad periods. Pain would always resolve. She states she had a fall about 3 weeks ago and since then has had constant pain in her neck rating down the left upper extremity to her hand. She is right-hand dominant. States that lying down and sitting reproduce her pain. Nothing is really palliative. She does take half a tablet of hydrocodone every 3 hours as well as a muscle relaxant at home. Denies bowel bladder changes. She has acute right lower extremity weakness most likely related to peroneal nerve injury which is what brought her into the ER this hospital visit. She was enrolled in physical therapy last week as an outpatient. Attending Physician: Liban Kohler MD Allergies Allergy/AdvReac Type Severity Reaction Status Date / Time Iodinated Contrast- Oral and Allergy Unknown ANAPHYLAXIS Verified 09/06/18 22:46 IV Dye omeprazole Allergy Unknown ANAPHYLAXIS Verified 09/06/18 22:46 peanut Allergy Unknown LIPS SWELL Verified 09/06/18 22:46 FROM PEANUT SHELL DUST erythromycin base AdvReac Unknown GI UPSET Verified 09/06/18 22:46 Home Medications Home Medications Medication Instructions Recorded Confirmed Type [id number]-[id number]-xzg-cod 1 tab PO DIRECTED PRN 06/01/18 09/06/18 History hydrocodone-acetaminophen 1 tab PO TID PRN 06/01/18 09/06/18 History ondansetron HCl 4 mg PO Q6H PRN 06/01/18 09/06/18 History pantoprazole 40 mg PO QAM 06/01/18 09/06/18 History varenicline [Chantix] 1 mg PO BID 06/01/18 09/06/18 History bupropion HCl 150 mg PO BID 06/24/18 09/06/18 History levothyroxine [Synthroid] 137 mcg PO QAM 06/24/18 09/06/18 History cyclobenzaprine 10 mg PO BID PRN 09/06/18 09/06/18 History insulin aspart U-100 [Novolog 0 unit SUBCUT TIDM 09/06/18 09/06/18 History U-100 Insulin aspart] insulin glargine [Lantus Solostar 22 unit SUBCUT QPM 09/06/18 09/06/18 History U-100 Insulin] Patient History Medical History Fibromyalgia (Chronic) Fatty liver (Acute 09/29/10) Hyperglycemia (Acute) TIA (transient ischemic attack) Tobacco dependence syndrome (Acute 09/29/10) Surgical History Hx of gastric bypass Social History Preferred Language: Kyrgyz Beliefs That Will Affect Care: None Current Living Situation: Spouse and Family Feels Safe at Home: Yes Safety Concerns: Feels Safe At This Time Smoking Status: Former smoker Tobacco Type: cigarettes Do You Dip or Chew Tobacco: No Smoking End Date: 11/06/2017 Hx Alcohol Use: No Hx Substance Use: No Review of Systems Review of Systems: All systems reviewed & are unremarkable except as noted in HPI & below Physical Exam Physical Exam: She is seen in conjunction with her . She is cooperative the exam. Alert and oriented x3. No obvious distress. No evidence of ankle clonus equivocal Babinski. She is a 3/5 right dorsiflexion. Strength is otherwise intact bilateral lower extremity's. I am unable to reach reproduce Glynn sign bilaterally. Motor testing is 5/5 bilateral finger intrinsics, finger extensors, finger flexors, wrist extensors, wrist flexors, biceps, triceps, deltoids. Positive lhermittes with cervical extension. Positive Spurling's to the left. Constitutional: WD/WN, vitals as above well developed Eyes: normal visual garcía by confrontation ENMT: external ear and nose normal, oropharynx normal Neck: normal visual inspection Respiratory: normal respiratory effort Cardiovascular: Rate/Rhythm: regular rate Gastrointestinal (Abdomen): Inspection/Auscultation: abdomen normal to inspection Musculoskeletal: Extremities: + abnormal strength Skin: no rashes, warm and dry Neurologic: + focal motor deficit Psychiatric: A+Ox3, euthymic affect Results & Data Vital Signs (Past 12 Hours) Vital Signs Temp Pulse Pulse Resp BP Pulse Ox 09/08/18 11:25 36.5 C 74 19 122/85 97 09/08/18 08:00 75 09/08/18 06:59 36.4 C L 74 18 120/81 96 09/08/18 04:02 36.6 C 71 18 132/85 99 Diagnostic Findings [place], [place] [phone] CT Scan Report Patient: SOCRATES JUDD Date: 09/07/18 MR#: [id number] [facility] Acct ID:[id number]: [id number] Date: 1965[facility] Zip: [place] [address] Age: 52Location: 2N Sex: F Room/Bed: [facility] Att Phy: Liban Kohler MDDiagnosis: RLE WEAKNESS, POSS CVA [place] Phy: Irma Fry MDService Date: 09/08/18 Fam Phy: Interpreting Phy: Reji Jack Admit Phy: Marvin Doan MD Ordering Phy: Pedro Hansen D.O. cc: ~ CT cervical spine wo con CT DOSE: 491.88 mGycm CLINICAL HISTORY: 52 years-old Female with neck and arm pain. Acute neck pain without reported trauma COMPARISON: CT cervical spine 01/22/2017 TECHNIQUE: Multiple axial CT images of the cervical spine were obtained without contrast. A dose lowering technique was utilized adhering to the principles of ALARA. FINDINGS: Predental interval appears normal. No acute cervical spine fracture or subluxation identified. Corticated bone fragment posterior to C2 are unchanged measuring up to 9 mm suggestive of remote spinous process fracture. Mild disc space narrowing with spondylitic spurring at C7-T1. Mild spondylitic spurring of the upper thoracic levels. Mild multilevel facet arthrosis. Evaluation of the central canal and neuroforamina is better assessed by MRI. There is suggestion of mild multilevel foraminal narrowing. There is at least mild central canal stenosis at C6-C7. No prevertebral soft tissue swelling. Debris noted within the proximal esophagus. Lung apices are clear. No pneumothorax. IMPRESSION: No acute cervical spine fracture or subluxation. The above report was generated using voice recognition software. It may contain grammatical, syntax or spelling errors. Electronically signed by: Lorenzo Jack M.D. 09/08/2018 9:09 AM
--- NOTE | 2018-09-08 21:29 | Hospitalist Progress Note ---
Date of Service September 08, 2018 Assessment & Plan (1) Right leg weakness: Presented with new onset right foot drop. No evidence of stroke per CT of head. Seen in consultation by Neurology. 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 Conservative management recommended. May benefit from AFO or hightop shoes. Patient advised not to cross her legs. EMG/nerve conduction studies recommended in 6 to 8 weeks. (2) Left arm pain: Experiencing left upper extremity pain over the last 2 weeks since a fall. X-rays in clinic demonstrated calcific tendinitis and patient was referred to physical therapy. There may be a radicular component of her pain. Patient seen in consultation by Ortho Spine. CT of cervical spine demonstrated old bone fragment posterior to C2 previously noted in 2017, multilevel degenerative disease, some degree of cervical stenosis at C6-C7, no acute fractures or dislocations. MRI was recommended, but could not be performed because of implanted spinal cord stimulator. Further recommendations per Ortho. (3) UTI (urinary tract infection): Urinalysis showed pyuria and bacteria. Patient placed on IV antibiotic therapy with cefepime. Dysuria improved. Urine culture growing E. coli, resistant to ampicillin and TMP/sulfa. Change therapy to cephalexin per sensitivities. (4) COPD (chronic obstructive pulmonary disease): Pulmonary status stable. (5) Cirrhosis: LFT's OK. No signs of decompensation. (6) Diabetes mellitus type 2, controlled: DM type 2 on insulin. Hgb A1C 6.8. Lantus / NovoLog per protocol. FBS this morning = 204. (7) Hypothyroidism: TSH 0.006, free T4 1.48, total T3 1.07. Review thyroid disease in more detail. (8) Chronic pain: Continue usual analgesics. (9) DVT prophylaxis: SCD's ordered. Ambulate. (10) Discharge planning issues: Anticipated discharge to home. Internal Medicine follow-up with Dr. Irma Fry. Subjective Recheck for multiple problems.. Patient seen in their room around 16:10. Ongoing radiating pain from neck to left upper extremity; pain radiates to the second and third fingers of the left hand. Pain aggravated by certain neck positions such as extension. Persistent right foot drop. No new neurologic symptoms. Review of Systems: Constitutional- no fever. Cardiac- no chest pain. Pulmonary- no cough or SOB. GI- no nausea, vomiting, diarrhea, melena, hematochezia. - no urinary symptoms. Otherwise, as noted above. Physical Exam Constitutional: no acute distress Respiratory: no respiratory distress Auscultation: lungs clear to auscultation bilaterally Cardiovascular: Rate/Rhythm: regular rate and regular rhythm Vessels: no JVD Extremities: no calf tenderness and no edema Gastrointestinal (Abdomen): normal bowel sounds, soft, nontender, no hepatosplenomegaly Skin: no rashes, warm and dry Neurologic: upper extremity strength 4.5/5 bilat right foot drop Psychiatric: Orientation: alert and oriented x 3 Results & Data Vital Signs (Past 12 Hours) Vital Signs Temp Pulse Resp BP Pulse Ox 09/08/18 11:25 36.5 C 74 19 122/85 97 Laboratory Results Laboratory Results - last 24 hr 09/08/18 09/08/18 09/08/18 06:33 06:33 06:33 WBC 6.48 RBC 4.51 Hgb 12.6 Hct 39.4 MCV 87.4 MCH 27.9 MCHC 32.0 RDW Std Deviation 42.4 RDW Coeff of Lionel 13.2 Plt Count 169 MPV 12.4 H Sodium 143 Potassium 3.7 Chloride 110 H Carbon Dioxide 28 Anion Gap 5.0 BUN 5 L Creatinine 0.58 L Est Cr Clr Drug Dosing 114.6 Est GFR ( Amer) 124.6 Est GFR (Non-Af Amer) 107.5 BUN/Creatinine Ratio 9.5 L Glucose 127 H POC Glucose Calcium 9.1 Magnesium 2.4 Triglycerides 161 H Cholesterol 112 LDL Cholesterol, Calc 47 VLDL Cholesterol, Calc 32 HDL Cholesterol 33 Cholesterol/HDL Ratio 3 25-OH Vitamin D Total 34.5 09/08/18 09/08/18 09/08/18 07:13 11:28 16:57 WBC RBC Hgb Hct MCV MCH MCHC RDW Std Deviation RDW Coeff of Lionel Plt Count MPV Sodium Potassium Chloride Carbon Dioxide Anion Gap BUN Creatinine Est Cr Clr Drug Dosing Est GFR ( Amer) Est GFR (Non-Af Amer) BUN/Creatinine Ratio Glucose POC Glucose 204 H 117 H 117 H Calcium Magnesium Triglycerides Cholesterol LDL Cholesterol, Calc VLDL Cholesterol, Calc HDL Cholesterol Cholesterol/HDL Ratio 25-OH Vitamin D Total 09/08/18 20:36 WBC RBC Hgb Hct MCV MCH MCHC RDW Std Deviation RDW Coeff of Lionel Plt Count MPV Sodium Potassium Chloride Carbon Dioxide Anion Gap BUN Creatinine Est Cr Clr Drug Dosing Est GFR ( Amer) Est GFR (Non-Af Amer) BUN/Creatinine Ratio Glucose POC Glucose 126 H Calcium Magnesium Triglycerides Cholesterol LDL Cholesterol, Calc VLDL Cholesterol, Calc HDL Cholesterol Cholesterol/HDL Ratio 25-OH Vitamin D Total (1) UTI (urinary tract infection) Hematuria presence: with hematuria Urinary tract infection type: site unspecified Qualified Code(s): N39.0 - Urinary tract infection, site not specified; R31.9 - Hematuria, unspecified
[2018-09-09] MEDS: CEFEPIME 2,000 MG in SYRINGE 7.5 ML IV SCH (02:47)
[2018-09-09] MEDS: HYDROCODONE/ACETAMINOPHEN 10/325 TAB PO PRN ×6 (02:47→19:32)
[2018-09-09] MEDS: LEVOTHYROXINE SODIUM 50 MCG TABLET PO SCH (06:11)
[2018-09-09] MEDS: INSULIN ASPART 100 UNITS/ML 3 ML PEN SC SCH ×4 (08:32→20:43)
[2018-09-09] MEDS: INSULIN GLARGINE SOLOSTAR 100 UNITS/ML 3 ML PEN SQ SCH (08:33)
[2018-09-09] MEDS: VARENICLINE 1 MG TAB PO SCH ×2 (09:08→19:33)
[2018-09-09] MEDS: FLINTSTONES COMPLETE PO SCH (09:08)
[2018-09-09] MEDS: CALCIUM PO SCH ×2 (09:09→19:33)
[2018-09-09] MEDS: buPROPion HCl 75 MG TABLET PO SCH ×2 (09:09→19:33)
[2018-09-09] MEDS: VITAMIN D PO SCH ×2 (09:09→19:33)
[2018-09-09] MEDS: PANTOprazole 40 MG TAB PO SCH (09:10)
[2018-09-09] MEDS: CYCLOBENZAPRINE HCL 10 MG TAB PO PRN (16:18)
--- NOTE | 2018-09-09 21:35 | Hospitalist Progress Note ---
Date of Service September 09, 2018 Assessment & Plan (1) Right leg weakness: Presented with new onset right foot drop. No evidence of stroke per CT of head. Seen in consultation by Neurology. Clever to have peroneal nerve palsy. Conservative management recommended. Needs AFO. Will consult orthotics. Patient advised not to cross her legs. EMG/nerve conduction studies recommended in 6 to 8 weeks. (2) Left arm pain: Experiencing left upper extremity pain over the last 2 weeks since a fall. X-rays in clinic demonstrated calcific tendinitis and patient was referred to physical therapy. There may be a radicular component of her pain. Patient seen in consultation by Ortho Spine. CT of cervical spine demonstrated old bone fragment posterior to C2 previously noted in 2017, multilevel degenerative disease, some degree of cervical stenosis at C6-C7, no acute fractures or dislocations. MRI was recommended, but could not be performed because of implanted spinal cord stimulator. Ongoing severe pain. Discussed with Ortho Spine. Check CT myelogram cervical spine. (3) UTI (urinary tract infection): Urinalysis showed pyuria and bacteria. Patient placed on IV antibiotic therapy with cefepime. Dysuria improved. Urine culture growing E. coli, resistant to ampicillin and TMP/sulfa. Change therapy to cephalexin per sensitivities. (4) COPD (chronic obstructive pulmonary disease): Pulmonary status stable. (5) Cirrhosis: LFT's OK. No signs of decompensation. (6) Diabetes mellitus type 2, controlled: DM type 2 on insulin. Hgb A1C 6.8. Lantus / NovoLog per protocol. FBS this morning = 103. (7) Hypothyroidism: TSH 0.006, free T4 1.48, total T3 1.07. Review thyroid disease in more detail. (8) Chronic pain: Continue usual analgesics. (9) DVT prophylaxis: SCD's ordered. Ambulate. (10) Discharge planning issues: Anticipated discharge to home. Internal Medicine follow-up with Dr. Irma Fry. Subjective Recheck for multiple problems.. Patient seen in their room around 18:45. Ongoing radiating pain from neck to left upper extremity; severe at times. Pain aggravated by certain neck positions such as extension. Persistent right foot drop. No new neurologic symptoms. Review of Systems: Constitutional- no fever. Cardiac- no chest pain. Pulmonary- no cough or SOB. GI- no nausea, vomiting, diarrhea, melena, hematochezia. - no urinary symptoms. Otherwise, as noted above. Physical Exam Constitutional: no acute distress Respiratory: no respiratory distress Auscultation: lungs clear to auscultation bilaterally Cardiovascular: Rate/Rhythm: regular rate and regular rhythm Vessels: no JVD Extremities: no calf tenderness and no edema Gastrointestinal (Abdomen): normal bowel sounds, soft, nontender, no hepatosplenomegaly Skin: no rashes, warm and dry Neurologic: right foot drop Psychiatric: Orientation: alert and oriented x 3 Results & Data Vital Signs (Past 12 Hours) Vital Signs Temp Pulse Resp BP Pulse Ox 09/09/18 14:52 36.8 C 83 20 122/82 98 Laboratory Results Laboratory Results - last 24 hr 09/09/18 09/09/18 09/09/18 07:41 11:17 16:39 POC Glucose 103 H 106 H 129 H 09/09/18 19:54 POC Glucose 142 H (1) UTI (urinary tract infection) Hematuria presence: with hematuria Urinary tract infection type: site unspecified Qualified Code(s): N39.0 - Urinary tract infection, site not specified; R31.9 - Hematuria, unspecified
[2018-09-10] MEDS: HYDROCODONE/ACETAMINOPHEN 10/325 TAB PO PRN ×5 (01:40→16:47)
[2018-09-10] MEDS: CYCLOBENZAPRINE HCL 10 MG TAB PO PRN (03:48)
[2018-09-10] MEDS: LEVOTHYROXINE SODIUM 50 MCG TABLET PO SCH (05:24)
[2018-09-10] MEDS: VARENICLINE 1 MG TAB PO SCH (09:24)
[2018-09-10] MEDS: buPROPion HCl 75 MG TABLET PO SCH (09:25)
[2018-09-10] MEDS: PANTOprazole 40 MG TAB PO SCH (09:25)
[2018-09-10] MEDS: cephALEXin 500 MG CAP PO SCH ×3 (09:25→16:48)
[2018-09-10] MEDS: VITAMIN D PO SCH (09:30)
[2018-09-10] MEDS: FLINTSTONES COMPLETE PO SCH (09:30)
[2018-09-10] MEDS: INSULIN ASPART 100 UNITS/ML 3 ML PEN SC SCH ×2 (09:30→12:48)
[2018-09-10] MEDS: CALCIUM PO SCH (09:30)
[2018-09-10] MEDS: INSULIN GLARGINE SOLOSTAR 100 UNITS/ML 3 ML PEN SQ SCH (09:33)
[2018-09-10] MEDS ORDERED: PROMETHAZINE HCL 25 MG TAB PO PRN (10:45)
--- NOTE | 2018-09-10 16:37 | Hospitalist Progress Note ---
Date of Service September 10, 2018 Assessment & Plan (1) Right leg weakness: Presented with new onset right foot drop. No evidence of stroke per CT of head. Seen in consultation by Neurology. Stacy to have peroneal nerve palsy. Conservative management recommended. Received AFO. Patient advised not to cross her legs. EMG/nerve conduction studies recommended in 6 to 8 weeks. (2) Left arm pain: Experiencing left upper extremity pain over the last 2 weeks since a fall. X-rays in clinic demonstrated calcific tendinitis and patient was referred to physical therapy. There may be a radicular component of her pain. Patient seen in consultation by Ortho Spine. CT of cervical spine demonstrated old bone fragment posterior to C2 previously noted in 2017, multilevel degenerative disease, some degree of cervical stenosis at C6-C7, no acute fractures or dislocations. MRI was recommended, but could not be performed because of implanted spinal cord stimulator. Ongoing intermittent pain, positional. Discussed with Ortho Spine. CT myelogram recommended, but could not be performed because of patient's current medications. Patient was given soft cervical collar. Outpatient follow-up with Orthopedics. (3) UTI (urinary tract infection): Urinalysis showed pyuria and bacteria. Patient placed on IV antibiotic therapy with cefepime. Dysuria improved. Urine culture grew E. coli, resistant to ampicillin and TMP/sulfa. Changed therapy to cephalexin per sensitivities. (4) COPD (chronic obstructive pulmonary disease): Pulmonary status stable. (5) Cirrhosis: LFT's OK. No signs of decompensation. (6) Diabetes mellitus type 2, controlled: DM type 2 on insulin. Hgb A1C 6.8. Lantus / NovoLog per protocol. FBS this morning = 121. Discharge on usual regimen. (7) Hypothyroidism: TSH 0.006, free T4 1.48, total T3 1.07. ?? secondary hypothyroidism. Reviewed clinic records re: thyroid disease in more detail. Last TSH on 07/15/2017 was 0.38. Has not had recent T3 or T4 determinations. Synthroid dose has been adjusted between at 137 and 150 mcg over the last 10 years, titration based on TSH. Suggest repeat thyroid testing in clinic before making any further medication changes with repeat TSH, free T4, free T3. (8) Chronic pain: Continue usual analgesics. (9) DVT prophylaxis: SCD's ordered. Ambulate. (10) Discharge planning issues: Discharge to home. Internal Medicine follow-up with Dr. Irma Fry. Orthopedic Spine follow-up with Dr. Hansen. Subjective Recheck for multiple problems. CT myelogram of cervical spine was recommended by Orthopedics, but cannot be performed for at least 48 hours due to some of the patient's medications. Ongoing intermittent left upper extremity pain related to certain neck movements and activities, but no worse. Received AFO splint for right foot drop and is pleased with it. Anxious to go home. Physical Exam Constitutional: no acute distress Respiratory: no respiratory distress Auscultation: lungs clear to auscultation bilaterally Cardiovascular: Rate/Rhythm: regular rate and regular rhythm Vessels: no JVD Extremities: no calf tenderness and no edema Gastrointestinal (Abdomen): normal bowel sounds, soft, nontender, no hepatosplenomegaly Skin: no rashes, warm and dry Psychiatric: Orientation: alert and oriented x 3 Results & Data Vital Signs (Past 12 Hours) Vital Signs Temp Pulse Resp BP Pulse Ox 09/10/18 15:43 36.6 C 77 16 109/75 97 09/10/18 08:00 36.5 C 72 18 117/78 99 (1) UTI (urinary tract infection) Hematuria presence: with hematuria Urinary tract infection type: site unspecified Qualified Code(s): N39.0 - Urinary tract infection, site not specified; R31.9 - Hematuria, unspecified
--- NOTE | 2018-09-13 14:35 | Discharge Summary ---
Date of Service Date of Admission: 09/07/18 Date of Discharge: 09/10/18 Admission HPI Per Admitting Provider History obtained from patient and records. Medical history significant for COPD, past tobacco abuse, chronic back pain status post surgery, postlaminectomy syndrome status post spinal cord stimulator placement, NAFLD, hyperlipidemia, hypothyroidism, depression, DM 2, insulin requiring, history of gastric bypass. Recent confinement October 2016 for headache, possible migraine attack. About 3 weeks ago, patient had a mechanical fall causing patient to hit her left shoulder against a closet. Patient noted achy neck pain, LUE shooting pain symptoms left upper extremity somewhat weaker than usual. No chest pain, no S OB. No unusual headache symptoms. Patient seen at PCPs office around 3 weeks ago. Left shoulder x-ray showed arthritis, calcific tendinitis of the rotator cuff. PT recommended if pain would persist. Persistent LUE pain, weakness subsequently noted. The last week, patient also noted bladder discomfort symptoms reminiscent of UTI. No fever no chills. Yesterday morning, patient noted right lower extremity weakness without unusual back pain complaints. No fever, no chills. At the ER, patient received Aspirin for stroke prophylaxis. IV Ceftriaxone given for UTI. Admission Exam Per Admitting Provider GENERAL: uncomfortable, slightly teary-eyed, no respiratory distress SKIN: Normal color, warm HEENT: [place] palpebral conjunctivae, no ptosis, dry buccal mucosa NECK : Tenderness left neck, some limitation in R OM CHEST : CTA, no tenderness HEART : RRR, no obvious murmurs ABDOMEN: Some distention, nontender EXTREMITIES : No LE swelling/tenderness, no other conspicuous deformities noted NEUROLOGIC : Coherent, no facial asymmetry, MMTs RUE 5/5, LUE 4/5, RLE 3/5, LLE 5/5, gait and stance not assessed Principal Diagnosis right foot drop, probable peroneal nerve palsy left upper extremity pain, probable cervical radiculopathy Discharge Data Allergies Allergy/AdvReac Type Severity Reaction Status Date / Time Iodinated Contrast- Oral and Allergy Unknown ANAPHYLAXIS Verified 09/06/18 22:46 IV Dye omeprazole Allergy Unknown ANAPHYLAXIS Verified 09/06/18 22:46 peanut Allergy Unknown LIPS SWELL Verified 09/06/18 22:46 FROM PEANUT SHELL DUST erythromycin base AdvReac Unknown GI UPSET Verified 09/06/18 22:46 Consultations 09/06/18 23:07 ED Decision to Admit Stat 09/07/18 02:53 Consult Neurology Routine Consult Orthopedic Surgery Routine 09/07/18 06:21 Consult Case Management - Discharge Planning Routine Ordered Studies 09/06/18 20:29 CT head/brain wo con Stat 09/08/18 07:54 CT cervical spine wo con Urgent Hospital Course (1) Right leg weakness: Presented with new onset right foot drop. No evidence of stroke per CT of head. Seen in consultation by Neurology. [place] to have peroneal nerve palsy. Conservative management recommended. Received AFO. Patient advised not to cross her legs. EMG/nerve conduction studies recommended in 6 to 8 weeks. (2) Left arm pain: Experiencing left upper extremity pain over the last 2 weeks since a fall. X-rays in clinic demonstrated calcific tendinitis and patient was referred to physical therapy. There may be a radicular component of her pain. Patient seen in consultation by Ortho Spine. CT of cervical spine demonstrated old bone fragment posterior to C2 previously noted in 2017, multilevel degenerative disease, some degree of cervical stenosis at C6-C7, no acute fractures or dislocations. MRI was recommended, but could not be performed because of implanted spinal cord stimulator. Ongoing intermittent pain, positional. Discussed with Ortho Spine. CT myelogram recommended, but could not be performed because of patient's current medications. Patient was given soft cervical collar. Outpatient follow-up with Orthopedics. (3) UTI (urinary tract infection): Urinalysis showed pyuria and bacteria. Patient placed on IV antibiotic therapy with cefepime. Dysuria improved. Urine culture grew E. coli, resistant to ampicillin and TMP/sulfa. Changed therapy to cephalexin per sensitivities. (4) COPD (chronic obstructive pulmonary disease): Pulmonary status stable. (5) Cirrhosis: LFT's OK. No signs of decompensation. (6) Diabetes mellitus type 2, controlled: DM type 2 on insulin. Hgb A1C 6.8. Lantus / NovoLog per protocol. FBS day of discharge was 121. Discharge on usual regimen. (7) Hypothyroidism: TSH 0.006, free T4 1.48, total T3 1.07. ?? secondary hypothyroidism. Reviewed clinic records re: thyroid disease in more detail. Last TSH on 07/15/2017 was 0.38. Has not had recent T3 or T4 determinations. Synthroid dose has been adjusted between 137 and 150 mcg over the last 10 years, titration based on TSH. Suggest repeat thyroid testing in clinic before making any further medication changes with repeat TSH, free T4, free T3. (8) Chronic pain: Continue usual analgesics. (9) DVT prophylaxis: SCD's ordered. Ambulate. (10) Discharge planning issues: Discharge to home. Internal Medicine follow-up with Dr. Irma Fry. Orthopedic Spine follow-up with Dr. Hansen. Total Time Total Time Spent Total Time Spent (In Minutes): 40 Discharge Plan Discharge Items Patient Disposition: Home - Self-Care Reason For Visit: weakness right leg and ankle; neck and L arm pain Discharge Diagnosis: right foot drop suspected pinched nerve in neck Condition: Good Discharge Goals: Decrease discomfort, Improve disease control and Improve function Activity: Resume your previous activity Lifting: No more than 5 pounds Non-emergency contact: Primary Care Provider, Hospitalist and Surgeon Call non-emergency contact if: you have any medication questions, your symptoms worsen, your pain is not controlled and you have a fever Follow-up/Referrals: Irma Fry MD [Primary Care Provider] - (09/14/2018 1:00 PM Irma Fry MD) Diet: Carb Consistent or DM2 and Heart Healthy Addtl Provider Instructions: Wear brace on right ankle / foot to help support your foot drop. Do not cross your legs. Wear cervical collar as needed to help support your neck. Nerve tests (EMG / nerve conduction velocity) of right leg to be done in about [address] Fry to make referral to see Dr. Hansen for follow-up of neck pain. Please ask Dr. Fry to recheck your thyroid hormone levels before we change your thyroid medication dose. You had a urinary tract infection. Take cephalexin as instructed until gone. Seek medical attention if you have: * temperature above 101 * chest pain or trouble breathing * abdominal pain, nausea, vomiting * diarrhea, dark stools or bloody stools * worsening weakness of arms or legs * any unanswered questions or concerns Call 911 if symptoms are severe. Please take good care of yourself. Call if you have any questions or problems. My cell # is [phone]. You can also reach a [facility] hospitalist on duty at [facility] 24 hours a day by calling [phone]. Prescriptions: New cephalexin 500 mg Capsule 500 mg PO QID Qty: 12 RF: 0 Continued levothyroxine [Synthroid] 137 mcg tablet 137 mcg PO QAM RF: 0 bupropion HCl 75 mg tablet 150 mg PO BID RF: 0 pantoprazole 40 mg tablet,delayed release (DR/EC) 40 mg PO QAM RF: 0 Chantix 1 mg Tablet 1 mg PO BID RF: 0 hydrocodone-acetaminophen 10-325 mg tablet 1 tab PO TID PRN (Reason: Pain) RF: 0 izjjmcmlyy-yedlvfwisf-hnn-cod [id number] mg capsule 1 tab PO DIRECTED PRN (Reason: Headache) RF: 0 ondansetron HCl 4 mg tablet 4 mg PO Q6H PRN (Reason: Nausea) RF: 0 cyclobenzaprine 10 mg tablet 10 mg PO BID PRN (Reason: Muscle Pain) RF: 0 Novolog U-100 Insulin aspart 100 unit/mL Solution SUBCUT TIDM RF: 0 Lantus Solostar U-100 Insulin 100 unit/mL (3 mL) insulin pen 22 unit subcut QPM RF: 0 Stand-Alone Forms: [facility] Discharge Orders: Discharge Order (Routine); Ordered 09/10/18 Ordered By: Liban Kohler Admission Data Admit Date/Time: 09/07/18 01:39 Attending Provider: Liban Kohler Admit Provider: Marvin Doan Primary Care Provider: Irma Fry Other Providers: Dallas Palma ; Pedro Hansen Service: Telemetry Medical Other Interventions: Discharge Summary Assessment (RN) Last Done: 09/10/18 16:59 DC Date/Time DO NOT enter until pt leaves facility: 09/10/18 17:41
== END 2018-09-10 17:41 | disposition home or self-care (01) | DRG 74 ==
LOC: ED 20:04 → SUATTDRO 09-07 01:39 → 2N 09-07 01:39
DX: G83.31 Monoplegia, unspecified affecting right dominant side; M79.7 Fibromyalgia; Z79.899 Other long term (current) drug therapy; E11.9 Type 2 diabetes mellitus without complications; E03.9 Hypothyroidism, unspecified; G57.31 Lesion of lateral popliteal nerve, right lower limb; M79.602 Pain in left arm; K74.60 Unspecified cirrhosis of liver; Z79.4 Long term (current) use of insulin; M96.1 Postlaminectomy syndrome, not elsewhere classified; J44.9 Chronic obstructive pulmonary disease, unspecified; E78.5 Hyperlipidemia, unspecified; Z87.891 Personal history of nicotine dependence; Z98.84 Bariatric surgery status; N39.0 Urinary tract infection, site not specified; F32.9 Major depressive disorder, single episode, unspecified; M21.371 Foot drop, right foot; Z91.81 History of falling

== ENCOUNTER 2018-10-24 04:48 | Inpatient (IN) ==
[2018-10-24] MEDS ORDERED: MoRPHine SULFATE 4 MG/ML 1 ML CARP\\VIAL IV STA ×3 (05:06→19:14)
[2018-10-24] MEDS ORDERED: SODIUM CHLORIDE 0.9% 1000ML 1,000 ML IV ONE ×3 (05:10→07:15)
--- NOTE | 2018-10-24 05:10 | Emergency Department Note ---
History of Present Illness General Chief complaint: Fall Stated complaint: FALL Time Seen by Provider: 10/24/18 04:51 Source: patient Mode of arrival: EMS Limitations: no limitations History of Present Illness Maximum Pain Intensity: 8 This patient is a 52-year-old female who presents to the emergency department via EMS for evaluation after a fall. The patient states that she has had vomiting and diarrhea for the past 5 hours. She states that she was getting up to go to the bathroom to vomit and she believes she tripped and fell, striking her head on the ground. She states that after the fall, she could not move either of her legs for a few minutes. Her did not witness the fall, but states that she lost consciousness for 2 to 3 minutes. He states they are concerned she could have had a seizure because she was staring ahead blankly. Patient now reports that both her arms hurt and states this pain feels like electric shocks. She states that the arms are very sensitive to any touch. Patient also states that she has swelling in both of her feet which has been ongoing for a while and she was seen here recently for this. She states that she was due to take a dose of hydrocodone prior to arrival here but did not take it. She reports a history of gastric bypass surgery, diabetes, and fi bromyalgia. She does report she is currently being treated for a thiamine deficiency but that her last level was improved. She states that her nausea and vomiting has resolved prior to arrival here. Home Medications Home Medications Medication Instructions Recorded Confirmed Type Chantix 1 mg PO BID 06/01/18 10/24/18 History jbskwudtcz-zdewiuolfs-exk-cod 1 tab PO DIRECTED PRN 06/01/18 10/24/18 History hydrocodone-acetaminophen 1 tab PO TID PRN 06/01/18 10/24/18 History ondansetron HCl 4 mg PO Q6H PRN 06/01/18 10/24/18 History pantoprazole 40 mg PO QAM 06/01/18 10/24/18 History Lantus Solostar U-100 Insulin 22 unit SUBCUT QPM 09/06/18 10/24/18 History cyclobenzaprine 10 mg PO BID PRN 09/06/18 10/24/18 History promethazine 25 mg PO Q6H PRN 10/05/18 10/24/18 History gabapentin 300 mg PO TID 10/13/18 10/24/18 History insulin lispro [Humalog KwikPen See Rx Instructions .ROUTE .COMPLEX 10/13/18 History Insulin] levothyroxine [Synthroid] 100 mcg PO QAM 10/13/18 10/24/18 History Allergies Allergy/AdvReac Type Severity Reaction Status Date / Time Iodinated Contrast- Oral and Allergy Unknown ANAPHYLAXIS Verified 10/24/18 05:55 IV Dye omeprazole Allergy Unknown ANAPHYLAXIS Verified 10/24/18 05:55 peanut Allergy Unknown LIPS SWELL Verified 10/24/18 05:55 FROM PEANUT SHELL DUST povidone-iodine Allergy Unknown . Verified 10/24/18 05:55 [From Betadine] erythromycin base AdvReac Unknown GI UPSET Verified 10/24/18 05:55 Past Med/Surg History Medical History Fibromyalgia (Chronic) Fatty liver (Acute 09/29/10) Hyperglycemia (Acute) TIA (transient ischemic attack) Tobacco dependence syndrome (Acute 09/29/10) Diabetes Surgical History Hx of gastric bypass Social History Preferred Language: Arabic Communication Ability: Effective Therapist Required: No Beliefs That Will Affect Care: None marital status: Current Living Situation: Spouse Other Information That Helps Us Care for You: No Feels Safe at Home: Yes Safety Concerns: Feels Safe At This Time Smoking Status: Current some day smoker Tobacco Type: cigarettes Cigarettes Per Day: 3-5 Second Hand Exposure: No Hx Alcohol Use: No Hx Substance Use: No Review of Systems A total of 10 systems reviewed and were otherwise negative Physical Exam Vital Signs Vital Signs - 24 hr 10/24/18 04:55 10/24/18 05:11 10/24/18 05:23 Temperature 34.6 C L Temperature Source Rectal Sepsis Recent Fever Within 48 Hours No Sepsis Action Taken by Nursing No Action Required Pulse Rate 115 H Pulse Rate [Right] 97 H Pulse Rhythm Regular Pulse Rhythm [Right] Regular Pulse Strength Normal Pulse Strength [Right] Normal Respiratory Rate 20 20 Respiratory Effort / Characteristics Non-Labored Spontaneous Non-Labored Spontaneous Respiratory Depth Normal Normal Blood Pressure 138/84 Blood Pressure [Right Arm] 112/82 Blood Pressure Mean 102 Blood Pressure Mean [Right Arm] 92 Blood Pressure Position Lying Blood Pressure Position [Right Arm] Lying Pulse Oximetry 99 97 Oxygen Delivery Method Room Air Room Air 10/24/18 05:58 10/24/18 06:21 10/24/18 07:20 Temperature 35.5 C L Temperature Source Rectal Sepsis Recent Fever Within 48 Hours Sepsis Action Taken by Nursing Pulse Rate Pulse Rate [Right] 95 H 90 Pulse Rhythm Pulse Rhythm [Right] Pulse Strength Pulse Strength [Right] Respiratory Rate 16 16 Respiratory Effort / Characteristics Non-Labored Spontaneous Respiratory Depth Normal Blood Pressure Blood Pressure [Right Arm] 121/88 116/81 Blood Pressure Mean Blood Pressure Mean [Right Arm] 99 92 Blood Pressure Position Blood Pressure Position [Right Arm] Lying Pulse Oximetry 98 98 Oxygen Delivery Method Room Air Room Air VITALS: Vitals are noted on the nurse's note and reviewed by myself. GENERAL: This is a 52-year-old female, disheveled appearing, in no acute distress. SKIN: The skin was without rashes, erythema, edema, or bruising. HEAD: Normocephalic atraumatic. EARS: External auditory canals clear, tympanic membranes pearly montel[place] without erythema or effusion bilaterally. No hemotympanum. EYES: Pupils equal round and reactive to light and accommodation. Extraocular movements intact. MOUTH: Mucous membranes somewhat dry. NECK: Supple without nuchal rigidity. No lymphadenopathy. Mild cervical tenderness. HEART: Regular rate and rhythm without murmurs gallops or rubs. LUNGS: Clear to auscultation bilaterally without wheezes, rales or rhonchi. ABDOMEN: Positive bowel sounds x 4. Soft, minimal epigastric tenderness to palpation. MUSCULOSKELETAL: Full range of motion throughout. Strength 5/5 in bilateral upper extremities. NEURO: Patient was alert and oriented to person place and time. No focal neurological deficits. Course Reevaluation(s) Reevaluation #1: Patient was reevaluated by myself and findings discussed. Patient requested another dose of pain medication and and an additional 4 mg of morphine was ordered. Patient is agreeable to admission. Consultations Consultation #1: Dr. Velazquez - ortho spine CT cervical spine discussed with Dr. Velazquez. He states this is a stable fracture and patient can be placed in a soft collar. He will consult on the patient if needed. Consultation #2: Dr. Silverman [facility]. Administered Medications Hydrocodone Bitart/Acetaminophen ([place] 10/325) 0.5 tab PO Q3H PRN PRN Reason: Pain Stop: 11/07/18 15:20 Last Admin: 10/25/18 03:13 Dose: 0.5 tab Documented by: [id number] Admin: 10/24/18 21:50 Dose: 0.5 tab Documented by: [id number] Admin: 10/24/18 15:41 Dose: 0.5 tab Documented by: [id number] Baclofen (Lioresal) 10 mg PO BID MEGHNA Stop: 11/23/18 10:44 Last Admin: 10/24/18 20:41 Dose: 10 mg Documented by: [id number] Admin: 10/24/18 11:35 Dose: 10 mg Documented by: [id number] Cyclobenzaprine HCl (Flexeril) 10 mg PO BID PRN PRN Reason: Muscle Spasm Stop: 11/23/18 07:45 Last Admin: 10/25/18 03:48 Dose: 10 mg Documented by: [id number] Admin: 10/24/18 17:08 Dose: 10 mg Documented by: [id number] Gabapentin (Neurontin) 400 mg PO TID [facility] Stop: 11/23/18 13:59 Last Admin: 10/24/18 20:41 Dose: 400 mg Documented by: [id number] Admin: 10/24/18 14:45 Dose: 400 mg Documented by: [id number] Piperacillin Sod/Tazobactam (Sod 3.375 gm/ Dextrose) 115 mls @ 28.75 mls/hr IV Q8H MEGHNA; Protocol Stop: 10/26/18 11:59 Last Admin: 10/25/18 03:13 Dose: 28.8 mls/hr Documented by: [id number] Infusion: 10/25/18 00:40 Dose: 0 mls/hr Documented by: [id number] Admin: 10/24/18 20:40 Dose: 28.8 mls/hr Documented by: [id number] Infusion: 10/24/18 16:20 Dose: 0 mls/hr Documented by: [id number] Admin: 10/24/18 12:16 Dose: 28.8 mls/hr Documented by: [id number] Vancomycin HCl 1,000 mg/ (Sodium Chloride) 270 mls @ 125 mls/hr IV Q12H [facility] Stop: 10/26/18 16:59 Last Infusion: 10/24/18 19:18 Dose: 0 mls/hr Documented by: [id number] Admin: 10/24/18 17:08 Dose: 125 mls/hr Documented by: [id number] Insulin Aspart (Novolog Flexpen) 0 units SC ACHS [facility] Stop: 11/23/18 09:29 Last Admin: 10/24/18 20:41 Dose: Not Given Documented by: [id number] Cosigned by: [id number] Admin: 10/24/18 17:07 Dose: Not Given Documented by: [id number] Cosigned by: [id number] Admin: 10/24/18 12:34 Dose: Not Given Documented by: [id number] Cosigned by: [id number] Admin: 10/24/18 10:42 Dose: Not Given Documented by: [id number] Cosigned by: [id number] Miscellaneous (Order Awaiting Action) 1 ea N/A QS [facility] Stop: 11/23/18 15:59 Last Admin: 10/25/18 00:27 Dose: Not Given Documented by: [id number] Admin: 10/24/18 19:53 Dose: Not Given Documented by: [id number] Ondansetron HCl (Zofran) 4 mg IV Q6H PRN PRN Reason: Nausea Stop: 11/23/18 07:30 Last Admin: 10/24/18 07:50 Dose: 4 mg Documented by: [id number] Thiamine HCl (Vitamin B-1) 100 mg PO QAM [facility] Stop: 11/23/18 13:44 Last Admin: 10/24/18 14:47 Dose: Not Given Documented by: [id number] Discontinued Medications Hydrocodone Bitart/Acetaminophen ([place] 5/325) 1 tab PO Q8H PRN PRN Reason: Moderate Pain Stop: 11/07/18 07:44 Last Admin: 10/24/18 10:08 Dose: 1 tab Documented by: [id number] Gabapentin (Neurontin) 300 mg PO TID [facility] Stop: 11/23/18 08:59 Last Admin: 10/24/18 14:10 Dose: Not Given Documented by: [id number] Admin: 10/24/18 11:35 Dose: 300 mg Documented by: [id number] Hydromorphone HCl (Dilaudid) 1 mg IV NOW STA Stop: 10/24/18 07:14 Last Admin: 10/24/18 07:46 Dose: Not Given Documented by: [id number] Hydromorphone HCl (Dilaudid) Confirm Administered Dose 1 mg .ROUTE .STK-MED ONE Stop: 10/24/18 07:17 Last Admin: 10/24/18 07:18 Dose: 1 mg Documented by: [id number] Hydromorphone HCl (Dilaudid) 1 mg IV NOW STA Stop: 10/24/18 10:36 Last Admin: 10/24/18 12:09 Dose: 1 mg Documented by: [id number] Hydromorphone HCl (Dilaudid) 0.5 mg IV Q4H PRN PRN Reason: Severe Pain Stop: 11/07/18 10:40 Last Admin: 10/24/18 14:22 Dose: 0.5 mg Documented by: [id number] Sodium Chloride (Nss 1000ml) 1,000 mls @ 999 mls/hr IV .Q1H1M ONE Stop: 10/24/18 06:10 Last Infusion: 10/24/18 06:15 Dose: 0 mls/hr Documented by: [id number] Admin: 10/24/18 05:14 Dose: 999 mls/hr Documented by: [id number] Sodium Chloride (Nss 1000ml) 1,000 mls @ 999 mls/hr IV .Q1H1M ONE Stop: 10/24/18 07:20 Last Infusion: 10/24/18 07:37 Dose: 0 mls/hr Documented by: [id number] Admin: 10/24/18 06:30 Dose: 999 mls/hr Documented by: [id number] Vancomycin HCl 1,500 mg/ (Sodium Chloride) 530 mls @ 200 mls/hr IV NOW ONE; P rotocol Stop: 10/24/18 08:58 Last Infusion: 10/24/18 10:13 Dose: 0 mls/hr Documented by: [id number] Admin: 10/24/18 07:19 Dose: 200 mls/hr Documented by: [id number] Piperacillin Sod/Tazobactam Sod (Zosyn) 3.375 gm in 115 mls @ 230 mls/hr IV NOW STA Stop: 10/24/18 06:49 Last Infusion: 10/24/18 07:09 Dose: 0 mls/hr Documented by: [id number] Admin: 10/24/18 06:34 Dose: 230 mls/hr Documented by: [id number] Sodium Chloride (Nss 1000ml) 1,000 mls @ 999 mls/hr IV .Q1H1M ONE Stop: 10/24/18 08:15 Last Admin: 10/24/18 10:11 Dose: Not Given Documented by: [id number] Sodium Chloride (Nss 1000ml) 500 mls @ 999 mls/hr IV .Q31M ONE Stop: 10/24/18 07:59 Last Admin: 10/24/18 10:20 Dose: Not Given Documented by: [id number] Sodium Chloride (Nss 1000ml) 500 mls @ 999 mls/hr IV .Q31M ONE Stop: 10/24/18 11:41 Last Infusion: 10/24/18 12:12 Dose: 0 mls/hr Documented by: [id number] Admin: 10/24/18 11:36 Dose: 999 mls/hr Documented by: [id number] Morphine Sulfate (Morphine Sulfate) 4 mg IV NOW STA Stop: 10/24/18 05:07 Last Admin: 10/24/18 05:14 Dose: 4 mg Documented by: [id number] Morphine Sulfate (Morphine Sulfate) 4 mg IV NOW STA Stop: 10/24/18 06:33 Last Admin: 10/24/18 06:34 Dose: 4 mg Documented by: [id number] Morphine Sulfate (Morphine Sulfate) 3 mg IV NOW STA Stop: 10/24/18 19:15 Last Admin: 10/24/18 19:26 Dose: 3 mg Documented by: [id number] Medical Decision Making Differential Diagnosis Differential diagnosis includes intracranial bleed, concussion, cervical spine fracture, acute coronary syndrome, sepsis, dehydration, DKA, among others. Medical Records Attestation: I reviewed the patient's medical records. Home Medications Current Medication List: was personally reviewed by me Laboratory Data Attestation: I reviewed the patient's lab results. Result diagrams: 10/24/18 12:01 10/24/18 12:01 Lab Results 10/24/18 10/24/18 10/24/18 Range/Units 05:00 05:00 05:00 WBC 19.40 H (4.8-10.8) K/uL RBC 6.01 H (4.2-5.4) M/uL Hgb 17.6 H (12.0-16.0) g/dL Hct 52.2 H (37-47) % MCV 86.9 (80-100) fL MCH 29.3 (25-34) pg MCHC 33.7 (32-36) g/dL RDW Std Deviation 44.4 (36.4-46.3) fL RDW Coeff of Lionel 13.8 (11.5-14.5) % Plt Count 262 (130-400) K/uL MPV 13.2 H (7.4-10.4) fL Immature Gran % (Auto) 0.3 % Neut % (Auto) 81.9 % Lymph % (Auto) 14.5 % [place] % (Auto) 3.0 % Eos % (Auto) 0.2 % Baso % (Auto) 0.1 % Immature Gran # (Auto) 0.06 H (0.00-0.02) K/uL Neut # (Auto) 15.90 H (1.4-6.5) K/uL Lymph # (Auto) 2.81 (1.2-3.4) K/uL [place] # (Auto) 0.58 (0.11-0.59) K/uL Eos # (Auto) 0.04 (0-0.5) K/uL Baso # (Auto) 0.01 (0-0.2) K/uL Sodium 139 (136-145) mmol/L Potassium 3.3 L (3.5-5.1) mmol/L Chloride 103 (98-107) mmol/L Carbon Dioxide 27 (21-32) mmol/L Anion Gap 9.0 (3-11) BUN 8 (7-18) mg/dl Creatinine 1.03 (0.6-1.2) mg/dl Est Cr Clr Drug Dosing 62.9 ml/min Est GFR ( Amer) 73.4 Est GFR (Non-Af Amer) 63.3 BUN/Creatinine Ratio 7.5 L (10-20) Glucose 257 H (70-99) mg/dl Lactate (0.4-2.0) mmol/L Calcium 9.2 (8.5-10.1) mg/dl Magnesium 2.1 (1.8-2.4) mg/dl Total Bilirubin 0.5 (0.2-1) mg/dl AST 20 (15-37) U/L ALT 22 (12-78) U/L Alkaline Phosphatase 147 H (45-117) U/L Troponin I < 0.015 (0-0.045) ng/ml Total Protein 7.4 (6.4-8.2) gm/dl Albumin 3.5 (3.4-5.0) gm/dl Globulin 3.9 (2.5-4.0) gm/dl Albumin/Globulin Ratio 0.9 (0.9-2) Triglycerides 199 H (0-150) mg/dl Cholesterol 159 (0-200) mg/dl LDL Cholesterol, Calc 77 mg/dl VLDL Cholesterol, Calc 40 mg/dl HDL Cholesterol 42 mg/dl Cholesterol/HDL Ratio 4 TSH 0.460 (0.300-4.500) uIu/ml Urine Color Urine Appearance (Clear) Urine pH (4.5-7.5) Ur Specific [place] (1.000-1.030) Urine Protein (Negative) Urine Glucose (UA) (Negative) Urine Ketones (Negative) Urine Blood (Negative) Urine Nitrite (Negative) Urine Bilirubin (Negative) Urine Urobilinogen (Negative) Ur Leukocyte Esterase (Negative) Urine WBC (Auto) (0-5) /hpf Urine RBC (Auto) (0-4) /hpf U Hyaline Cast (Auto) (0-5) /lpf U Epithel Cells (Auto) (0-5) /lpf Urine Bacteria (Auto) (Negative) Lyme Disease IgG Ab (Negative) Lyme Disease IgM Ab (Negative) 10/24/18 10/24/18 10/24/18 Range/Units 05:00 05:55 06:19 WBC (4.8-10.8) K/uL RBC (4.2-5.4) M/uL Hgb (12.0-16.0) g/dL Hct (37-47) % MCV (80-100) fL MCH (25-34) pg MCHC (32-36) g/dL RDW Std Deviation (36.4-46.3) fL RDW Coeff of Lionel (11.5-14.5) % Plt Count (130-400) K/uL MPV (7.4-10.4) fL Immature Gran % (Auto) % Neut % (Auto) % Lymph % (Auto) % [place] % (Auto) % Eos % (Auto) % Baso % (Auto) % Immature Gran # (Auto) (0.00-0.02) K/uL Neut # (Auto) (1.4-6.5) K/uL Lymph # (Auto) (1.2-3.4) K/uL [place] # (Auto) (0.11-0.59) K/uL Eos # (Auto) (0-0.5) K/uL Baso # (Auto) (0-0.2) K/uL Sodium (136-145) mmol/L Potassium (3.5-5.1) mmol/L Chloride (98-107) mmol/L Carbon Dioxide (21-32) mmol/L Anion Gap (3-11) BUN (7-18) mg/dl Creatinine (0.6-1.2) mg/dl Est Cr Clr Drug Dosing ml/min Est GFR ( Amer) Est GFR (Non-Af Amer) BUN/Creatinine Ratio (10-20) Glucose (70-99) mg/dl Lactate 2.6 H* (0.4-2.0) mmol/L Calcium (8.5-10.1) mg/dl Magnesium (1.8-2.4) mg/dl Total Bilirubin (0.2-1) mg/dl AST (15-37) U/L ALT (12-78) U/L Alkaline Phosphatase (45-117) U/L Troponin I (0-0.045) ng/ml Total Protein (6.4-8.2) gm/dl Albumin (3.4-5.0) gm/dl Globulin (2.5-4.0) gm/dl Albumin/Globulin Ratio (0.9-2) Triglycerides (0-150) mg/dl Cholesterol (0-200) mg/dl LDL Cholesterol, Calc mg/dl VLDL Cholesterol, Calc mg/dl HDL Cholesterol mg/dl Cholesterol/HDL Ratio TSH (0.300-4.500) uIu/ml Urine Color Dark Yellow Urine Appearance Turbid A (Clear) Urine pH 5.0 (4.5-7.5) Ur Specific [place] 1.019 (1.000-1.030) Urine Protein Trace H (Negative) Urine Glucose (UA) Negative (Negative) Urine Ketones Negative (Negative) Urine Blood 1+ H (Negative) Urine Nitrite Positive A (Negative) Urine Bilirubin Negative (Negative) Urine Urobilinogen Negative (Negative) Ur Leukocyte Esterase 2+ H (Negative) Urine WBC (Auto) >30 H (0-5) /hpf Urine RBC (Auto) 0-4 (0-4) /hpf U Hyaline Cast (Auto) 1-5 (0-5) /lpf U Epithel Cells (Auto) >30 H (0-5) /lpf Urine Bacteria (Auto) 3+ H (Negative) Lyme Disease IgG Ab Negative (Negative) Lyme Disease IgM Ab Negative (Negative) Imaging Data Attestation: I personally reviewed and interpreted this imaging study as follows: My Impression: CHEST 1 VIEW: No acute pulmonary infiltrates. No pneumothorax. No evidence of failure. Radiologist's Impression: CT HEAD: No intracranial hemorrhage, midline shift or mass effect. No skull fracture. CT C SPINE: Subtle avulsion fracture involving the anterior cortical margin of the inferior endplate at C6 level, new from the examination dated 09/08/2018 (series 501; images [id number]). The vertebral bodies are otherwise stable in appearance without significant anterolisthesis or retrolisthesis. Radiologist: Hugo Guerra MD ECG Data Attestation: I personally reviewed and interpreted this ECG as follows: Indication: vomiting Rate (beats per minute): 114 Rhythm: sinus tachycardia Findings: no acute ischemic change and no ectopy Change: no significant change Blood Pressure Blood Pressure Findings: Normal blood pressure Blood Pressure Disposition: did not require urgent referral MDM Narrative The patient is a 52-year-old female who presents today complaining of a fall. On arrival, patient was hypothermic with rectal temperature of 34.6 C. Patient was also found to be tachycardic. Given this and recent symptoms of nausea and vomiting, further work-up was performed. Labs revealed leukocytosis of 19,000 with left shift. Lactate slightly elevated. Urinalysis appears to be infected. Patient given broad-spectrum antibiotics and IV fluid resuscitation. She was placed in the shaquille hugger. CT scan of the cervical spine did show a small avulsion fracture. I did speak with orthopedics who recommended placing the patient in a collar and agreed to consult on the patient. I spoke with the [facility] service for admission. The patient was independently evaluated by Dr. Jose, who agreed with my assessment and treatment plan. Impression & Plan Sepsis, UTI (urinary tract infection), Cervical spine fracture Discharge Plan Visit Data *Final* Discharge Date/Time: 10/24/18 08:55 Chief Complaint: Fall Stated Complaint: FALL ED Provider: Argenis Jose ED Midlevel Provider: Veronica Tovar Discharge Problem: Sepsis, UTI (urinary tract infection), Cervical spine fracture Patient Disposition: Admitted As Inpatient Discharge Instructions Interventions: ED Discharge Assessment Last Done: 10/24/18 08:55 Discharge Problem: Sepsis Qualifiers: Sepsis type: sepsis due to unspecified organism Qualified Code(s): A41.9 - Sepsis, unspecified organism UTI (urinary tract infection) Qualifiers: Urinary tract infection type: site unspecified Hematuria presence: without hematuria Qualified Code(s): N39.0 - Urinary tract infection, site not specified Cervical spine fracture Qualifiers: Encounter type: initial encounter Cervical vertebra fracture level: C6 Fracture type: closed Fracture morphology: other fracture Fracture alignment: nondisplaced Qualified Code(s): S12.591A - Other nondisplaced fracture of sixth cervical vertebra, initial encounter for closed fracture
[2018-10-24 05:36] LABS: Basophils # (auto) 0.01 K/uL (0-0.2); Basophils % (auto) 0.1 %; Eosinophils # (auto) 0.04 K/uL (0-0.5); Eosinophils % (auto) 0.2 %; Hematocrit (blood only) 52.2 % (37-47); Hemoglobin 17.6 g/dL (12.0-16.0); Immature Granulocytes # (auto) 0.06 K/uL (0.00-0.02); Immature Granulocytes % (auto) 0.3 %; Lymphocytes # (auto) 2.81 K/uL (1.2-3.4); Lymphocytes % (auto) 14.5 %; Mean Corpuscular Hgb Conc 33.7 g/dL (32-36); Mean Corpuscular Volume 86.9 fL (80-100); Mean Platelet Volume 13.2 fL (7.4-10.4); Monocytes # (auto) 0.58 K/uL (0.11-0.59); Neutrophils % (auto) 81.9 %; Platelet Count 262 K/uL (130-400); RDW Coefficient of Variation 13.8 % (11.5-14.5); RDW Standard Deviation 44.4 fL (36.4-46.3); Red Blood Count 6.01 M/uL (4.2-5.4)
[2018-10-24 05:46] LABS: Alanine Aminotransferase 22 U/L (12-78); Albumin Level 3.5 gm/dl (3.4-5.0); Aspartate Aminotransferase 20 U/L (15-37); BUN Creatinine Ratio 7.5 (10-20); Blood Urea Nitrogen 8 mg/dl (7-18); Calcium 9.2 mg/dl (8.5-10.1); Carbon Dioxide 27 mmol/L (21-32); Chloride 103 mmol/L (98-107); Creatinine Clr Calc Pharmacy 62.9 ml/min; Est GFR (African American) 73.4; Est GFR (Non-African American) 63.3; Glucose 257 mg/dl (70-99); Potassium 3.3 mmol/L (3.5-5.1); Sodium 139 mmol/L (136-145)
[2018-10-24 05:49] LABS: Albumin Globulin Ratio 0.9 (0.9-2); Alkaline Phosphatase 147 U/L (45-117); Bilirubin,Total 0.5 mg/dl (0.2-1); Globulin 3.9 gm/dl (2.5-4.0); Total Protein 7.4 gm/dl (6.4-8.2); Troponin I < 0.015 ng/ml (0-0.045)
[2018-10-24 06:09] LABS: Appearance Urine Turbid (Clear); Bacteria Urine Automated 3+ (Negative); Bilirubin Urine Negative (Negative); Color Urine Dark Yellow; Epithelial Cell Urine Auto >30 /lpf (0-5); Glucose Urine UA Negative (Negative); Ketones Urine Negative (Negative); Leukocyte Esterase Urine 2+ (Negative); Nitrite Urine Positive (Negative); Protein Urine Trace (Negative); Specific Gravity Urine 1.019 (1.000-1.030); Urobilinogen Urine Negative (Negative); WBC Urine Automated >30 /hpf (0-5)
[2018-10-24] MEDS ORDERED: PIPERACILLIN/TAZOBACTAM 3.375 GM/115 ML BAG IV STA (06:20)
[2018-10-24] MEDS ORDERED: VANCOMYCIN CONSULT ACTIVE PRN (06:20)
[2018-10-24] MEDS ORDERED: VANCOMYCIN HCL 1,500 MG in SODIUM CHLORIDE 0.9% 500 ML IV ONE (06:20)
[2018-10-24] MEDS ORDERED: PIPERACILL/TAZOBAC CONSULT ACTIVE PRN (06:20)
--- NOTE | 2018-10-24 06:39 | Emergency Department Note ---
ED Visit Note I have personally seen and evaluated the patient with the PA. I agree with the diagnosis and management decisions and have been personally involved in the case. Upon my evaluation the patient, she is under a bear hugger. She is alert and responsive. Patient states she was prescribed an antibiotic recently for UTI but did not begin the medication. The last UA in our system was approximately 10 days ago and grew out lactobacillus. In August the patient did grow out E. coli. I suspect the patient is suffering from an E. coli UTI and secondary sepsis. She is receiving IV hydration with normal saline solution and will be started on IV vancomycin and Zosyn. Blood cultures and lactate are pending. Patient has expressed understanding of the plan and agrees. Please see Veronica Tovar PA-C's notes for further details of the history, physical and visit. .
--- NOTE | 2018-10-24 06:55 | CT Scan Report ---
HEAD CT NONCONTRAST CT DOSE: HISTORY: fall, head injury TECHNIQUE: Multiaxial CT images of the head were performed without the use of intravenous contrast. A utomated exposure control was utilized for this study. A dose lowering technique was utilized adheri ng to the principles of ALARA. Comparison: None. Findings: The paranasal sinuses and mastoid air cells are clear. The calvarium and skull base are int act. The ventricles and sulci are within normal limits. There is no mass, hematoma, midline shift, or acute infarct. Impression: No acute intracranial abnormality. Electronically signed by: Tom Ba M.D. 10/24/2018 6:53 AM
[2018-10-24] MEDS ORDERED: HYDROmorphone INJ 1 MG/ML SYRINGE IV STA ×2 (07:13→10:35)
[2018-10-24] MEDS ORDERED: HYDROmorphone INJ 1 MG/ML SYRINGE ONE (07:16)
--- NOTE | 2018-10-24 07:22 | CT Scan Report ---
CERVICAL SPINE CT CT DOSE: 921.95 mGy.cm HISTORY: fall, head injury, neck pain TECHNIQUE: Multiaxial CT images of the cervical spine were performed and reformatted in the sagittal and coronal plane without the use of contrast. A dose lowering technique was utilized adhering to th e principles of ALARA. COMPARISON: Cervical spine 10/05/2018. FINDINGS: There is a tiny acute nondisplaced fracture within the anterior-inferior endplate at C6. No additional fractures identified within the cervical spine. Mild disc space narrowing within the lowe r cervical spine. The C1-C2 interval is intact. No pneumothorax. No subluxation. IMPRESSION: There is a tiny acute nondisplaced fracture at the anterior-inferior corner of the C6 vertebral body. No additional fractures identified. Electronically signed by: Tom Ba M.D. 10/24/2018 7:21 AM
[2018-10-24] MEDS ORDERED: SODIUM CHLORIDE 0.9% 1000ML 500 ML IV ONE ×2 (07:29→11:11)
[2018-10-24] MEDS ORDERED: GLUCOSE 10 TABS/TUBE PO PRN (07:30)
[2018-10-24] MEDS ORDERED: ACETAMINOPHEN 65 ML IV PRN (07:30)
[2018-10-24] MEDS ORDERED: CARBOHYDRATES FOR HYPOGLYCEMIA PO PRN (07:30)
[2018-10-24] MEDS ORDERED: GLUCOSE 40% GEL 15 GM TUBE PO PRN (07:30)
[2018-10-24] MEDS ORDERED: DEXTROSE 50% 50 ML SYRINGE IV PRN (07:30)
[2018-10-24] MEDS ORDERED: GLUCAGON FOR INJ 1 MG VIAL SQ PRN (07:30)
--- NOTE | 2018-10-24 07:41 | XRay Report ---
XR chest 1V portable HISTORY: fall, vomiting COMPARISON: Chest 09/06/2018. FINDINGS: The lungs are clear. The heart is normal in size. No pleural effusions. No pneumothorax. Sp inal electrodes are noted in the midthoracic region. IMPRESSION: No significant change compared to the prior study. No acute process. Electronically signed by: Tom Ba M.D. 10/24/2018 7:40 AM
[2018-10-24] MEDS ORDERED: HYDROCODONE/ACETAMOPHEN 5/325MG TAB PO PRN (07:45)
[2018-10-24] MEDS: ONDANSETRON INJ 2 MG/ML 2 ML VIAL IV PRN (07:50)
--- NOTE | 2018-10-24 07:51 | History & Physical Report ---
Date of Service October 24, 2018 Assessment & Plan (1) Sepsis: suspected sepsis Urinary tract infection Hypothermia mild -admission body temperature 34.6 celisus -elevated WBC to 19.4, Matias hugger placed in the ED, UA positive for bacteria, follow urine culture, and blood culture, patient empirically started on Zosyn and Vancomycin -of note patient had Escherichia coli in urine culture in September 06, 2018 -lactic acid 2.3 in the ED, when seen by hospitalist patient had 2 liters of IV fluids, additional 500 cc ordered. And patient will have meet sepsis guidelines for IV fluids of 30ml/kg in 3 hours based on her body weight of 70 kg -monitor body temperature on Matias hugger and try to wean off when able fracture of cervical spine C6 Degenerative disc disease of spine -tiny acute nondisplaced fracture at the anterior-inferior corner of the C6 vertebral body on CT neck -neck in c-spine collar in the ED -patient cannot obtain MRI because of Spinal Cord Stimulator -as per outpatient notes, patient known to have Degenerative disc disease of L3 to L5 with Lumbar hemilaminectomy in the past and also degeneration of cervical intervertebal disc -patient also follows with pain management clinic and outpatient notes on 10/19/18 describes neck and left upper extremity pain after a fall from 2 months ago and that pain of left upper extremity of bicep/forearm/hand numbness Neuropathy of the extremities -pain and sensitivity below the elbows of both arms on this admission -area involved does not match dermatomes of cervical spine -rule out seizure, treat with gabapentin for possible diabetic neuropathy -prn narcotic medications for moderate to severe pain Rule out Seizure -neurology consult -CT head without contrast negative -CT head with and without contrast ordered -EEG ordered Type 2 Diabetes Mellitus with rn long term care current use of insulin possible diabetic neuropathy of extremities -send HbA1c -sliding scale insulin and resume long acting insulin based on patient's oral intake and blodd glucose 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 -diagnosed in August, -will need outpatient EMG and neurology follow up -PT/OT evaluations Hypothyroidism -chart review of TSH of August to September TSH levels have been very low but normal free T4 -will repeat TSH and T4 in this admission -suspect that patient may be on too much levothyroxine at home which is dosed as 100 mcg daily -will order tentatively a lower daily 25 mcg daily pending further thyroid testing History of gastric bypass -gastric bypass in March, - Vickey-en-Y gastrojejunostomy with gastrojejunal anastomosis -patient reports adequate thiamine levels -will check B12 and thiamine levels and zinc levels Nonalcoholic Steatohepatitis (SOTOMAYOR) Cirrhosis -outpatient EGD on 10/21/18: Normal esophagus. Dilated to slightly beyond 18 mm with a balloon dilator. Biopsies were obtained from the distal esophagus. Vickey-e n-Y gastrojejunostomy with gastrojejunal anastomosis characterized by healthy appearing mucosa -patient to follow up outpatient biopsy results -monitor Rule out dysphagia -patient vomiting after eating at home -able to take liquids in the ED -official speech and swallow evaluation -advance diet as tolerated Full Code History of Present Illness 52 year old female with history of gastric bypass in March 2018, SOTOMAYOR cirrhosis, Type 2 diabetes mellitus on insulin, history of hypothyrodism on Synthroid, Urinary Tract infection in August 2018, with August 2018 diagnosis of right leg peroneal palsy, with lumbar degenerative joint disease and degeneration of cervical intervertebal disc, history of left upper neck and upper extremity pain, recent 10/21/18 upper endoscopy, who around 2 AM on 10/24/18 had a fall and episode of nonresponsiveness. As per patient she was eating her food and had some vomiting episode because the food was not going down. Then was going to the bathroom when she reported of stumbling of her feet. She fell down and and was found by who told her that she was not responding to him for 2 minutes. She reports that her called it a seizure but she was not flailing her extremities - her eyes were open and she looked like having an absent staring into space. During this time she lost bowel continence and made bowel movement. She does not recall remembering being in the way but she had usual mental status after 2 minutes and her told her what happened. In the ED patient was found to have low body temperature of 34.6 celsius and placed in Matias Hugger and started on Vanocomycin and Zosyn for concern for sepsis and urine was positive for bacteria. Patient got IV fluids. She also had cervical spin collar placed tiny acute nondisplaced fracture at the anterior- inferior corner of the C6 vertebral body on CT neck. Patient also got pain medications because of pain running down both elbows of upper extremities Patient denies fever. Patient denies headache. no dizziness. no vomiting at this time. no chest pain. no shortness of breath. breathing on room air. no abdomen pain. pain down both elbows to hands and sensitive the touch. patient can move upper extremities without motor deficits. patient can do leg raises when laying on the bed. however right foot appears to have some foot drop and less strength compared to left foot Primary Care Provider: Irma Fry MD Allergies Allergy/AdvReac Type Severity Reaction Status Date / Time Iodinated Contrast- Oral and Allergy Unknown ANAPHYLAXIS Verified 10/24/18 05:55 IV Dye omeprazole Allergy Unknown ANAPHYLAXIS Verified 10/24/18 05:55 peanut Allergy Unknown LIPS SWELL Verified 10/24/18 05:55 FROM PEANUT SHELL DUST povidone-iodine Allergy Unknown . Verified 10/24/18 05:55 [From Betadine] erythromycin base AdvReac Unknown GI UPSET Verified 10/24/18 05:55 Home Medications Home Medications Medication Instructions Recorded Confirmed Type Chantix 1 mg PO BID 06/01/18 10/24/18 History hiwgamzqij-qlerdymaof-fun-cod 1 tab PO DIRECTED PRN 06/01/18 10/24/18 History hydrocodone-acetaminophen 1 tab PO TID PRN 06/01/18 10/24/18 History ondansetron HCl 4 mg PO Q6H PRN 06/01/18 10/24/18 History pantoprazole 40 mg PO QAM 06/01/18 10/24/18 History Lantus Solostar U-100 Insulin 22 unit SUBCUT QPM 09/06/18 10/24/18 History cyclobenzaprine 10 mg PO BID PRN 09/06/18 10/24/18 History promethazine 25 mg PO Q6H PRN 10/05/18 10/24/18 History gabapentin 300 mg PO TID 10/13/18 10/24/18 History insulin lispro [Humalog KwikPen See Rx Instructions .ROUTE .COMPLEX 10/13/18 10/24/18 History Insulin] levothyroxine [Synthroid] 100 mcg PO QAM 10/13/18 10/24/18 History Past Med/Surg History Medical History Fibromyalgia (Chronic) Fatty liver (Acute 09/29/10) Hyperglycemia (Acute) TIA (transient ischemic attack) Tobacco dependence syndrome (Acute 09/29/10) Diabetes Surgical History Hx of gastric bypass Social History Preferred Language: Mexican Communication Ability: Effective [employer] App[employer] Required: No Beliefs That Will Affect Care: None marital status: Current Living Situation: Spouse Other Information That Helps Us Care for You: No Feels Safe at Home: Yes Safety Concerns: Feels Safe At This Time Smoking Status: Current some day smoker Tobacco Type: cigarettes Cigarettes Per Day: 3-5 Second Hand Exposure: No Hx Alcohol Use: No Hx Substance Use: No Physical Exam Eyes: PERRL, conjunctivae normal, anicteric sclerae EOM intact bilaterally ENMT: external ear and nose normal, oropharynx normal Neck: in cervical spine collar Respiratory: normal respiratory effort, lungs clear to auscultation Cardiovascular: RRR, no murmur, no edema Gastrointestinal (Abdomen): normal bowel sounds, soft, nontender, no hepatosplenomegaly Musculoskeletal: Head/Neck/Chest: normocephalic and head atraumatic pain down both elbows to hands and sensitive the touch Neurologic: patient can move upper extremities without motor deficits. patient can do leg raises when laying on the bed. however right foot appears to have some foot drop and less strength compared to left foot Psychiatric: A+Ox3, euthymic affect Results & Data Vital Signs (Past 12 Hours) Vital Signs Temp Pulse Pulse Resp BP BP Pulse Ox 10/24/18 07:20 90 16 116/81 98 10/24/18 06:21 95 H 16 121/88 98 10/24/18 05:58 35.5 C L 10/24/18 05:23 97 H 20 112/82 97 10/24/18 05:11 34.6 C L 10/24/18 04:55 115 H 20 138/84 99 (1) Sepsis Sepsis type: sepsis due to unspecified organism Qualified Code(s): A41.9 - Sepsis, unspecified organism
[2018-10-24 08:29] LABS: Magnesium 2.1 mg/dl (1.8-2.4)
[2018-10-24 09:28] LABS: Lyme Ab IgG w/WB Rflx Negative (Negative); Lyme Ab IgM w/WB Rflx Negative (Negative)
[2018-10-24] MEDS ORDERED: HYDROCODONE/ACETAMINOPHEN 10/325 TAB PO PRN (10:38)
[2018-10-24] MEDS ORDERED: HYDROmorphone INJ 0.5 MG/0.5 ML SYR IV PRN (10:41)
[2018-10-24] MEDS: INSULIN ASPART 100 UNITS/ML 3 ML PEN SC SCH ×4 (10:42→20:41)
[2018-10-24] MEDS: BACLOFEN 10 MG TAB PO SCH ×2 (11:35→20:41)
[2018-10-24] MEDS: GABAPENTIN 300 MG CAP PO SCH ×2 (11:35→14:10)
--- NOTE | 2018-10-24 12:01 | Procedure Note ---
EEG Procedure Note Date of Service October 24, 2018 Start / End Times Start Time: 10:58 End Time: 11:[address] Jagdish Nevarez History A 52 year old woman with episode of loss of consciousness. EEG performed for evaluation of epileptiform activity. Home Medication List Home Medications Medication Instructions Recorded Confirmed Type Chantix 1 mg PO BID 06/01/18 10/24/18 History dqevpxjbfx-uzqhfnwvsz-mqq-cod 1 tab PO DIRECTED PRN 06/01/18 10/24/18 History hydrocodone-acetaminophen 1 tab PO TID PRN 06/01/18 10/24/18 History ondansetron HCl 4 mg PO Q6H PRN 06/01/18 10/24/18 History pantoprazole 40 mg PO QAM 06/01/18 10/24/18 History Lantus Solostar U-100 Insulin 22 unit SUBCUT QPM 09/06/18 10/24/18 History cyclobenzaprine 10 mg PO BID PRN 09/06/18 10/24/18 History promethazine 25 mg PO Q6H PRN 10/05/18 10/24/18 History gabapentin 300 mg PO TID 10/13/18 10/24/18 History insulin lispro [Humalog KwikPen See Rx Instructions .ROUTE .COMPLEX 10/13/18 10/24/18 History Insulin] levothyroxine [Synthroid] 100 mcg PO QAM 10/13/18 10/24/18 History Inpatient Medication List Baclofen (Lioresal) 10 mg PO BID MEGHNA Stop: 11/23/18 10:44 Last Admin: 10/24/18 11:35 Dose: 10 mg Documented by: [id number] Gabapentin (Neurontin) 300 mg PO TID MEGHNA Stop: 11/23/18 08:59 Last Admin: 10/24/18 11:35 Dose: 300 mg Documented by: [id number] Insulin Aspart (Novolog Flexpen) 0 units SC ACHS MEGHNA Stop: 11/23/18 09:29 Last Admin: 10/24/18 10:42 Dose: Not Given Documented by: [id number] Cosigned by: [id number] Ondansetron HCl (Zofran) 4 mg IV Q6H PRN PRN Reason: Nausea Stop: 11/23/18 07:30 Last Admin: 10/24/18 07:50 Dose: 4 mg Documented by: [id number] Discontinued Medications Hydrocodone Bitart/Acetaminophen (Sanford 5/325) 1 tab PO Q8H PRN PRN Reason: Moderate Pain Stop: 11/07/18 07:44 Last Admin: 10/24/18 10:08 Dose: 1 tab Documented by: [id number] Hydromorphone HCl (Dilaudid) 1 mg IV NOW STA Stop: 10/24/18 07:14 Last Admin: 10/24/18 07:46 Dose: Not Given Documented by: [id number] Hydromorphone HCl (Dilaudid) Confirm Administered Dose 1 mg .ROUTE .STK-MED ONE Stop: 10/24/18 07:17 Last Admin: 10/24/18 07:18 Dose: 1 mg Documented by: [id number] Sodium Chloride (Nss 1000ml) 1,000 mls @ 999 mls/hr IV .Q1H1M ONE Stop: 10/24/18 06:10 Last Infusion: 10/24/18 06:15 Dose: 0 mls/hr Documented by: [id number] Admin: 10/24/18 05:14 Dose: 999 mls/hr Documented by: [id number] Sodium Chloride (Nss 1000ml) 1,000 mls @ 999 mls/hr IV .Q1H1M ONE Stop: 10/24/18 07:20 Last Infusion: 10/24/18 07:37 Dose: 0 mls/hr Documented by: [id number] Admin: 10/24/18 06:30 Dose: 999 mls/hr Documented by: [id number] Vancomycin HCl 1,500 mg/ (Sodium Chloride) 530 mls @ 200 mls/hr IV NOW ONE; Protocol Stop: 10/24/18 08:58 Last Infusion: 10/24/18 10:13 Dose: 0 mls/hr Documented by: [id number] Admin: 10/24/18 07:19 Dose: 200 mls/hr Documented by: [id number] Piperacillin Sod/Tazobactam Sod (Zosyn) 3.375 gm in 115 mls @ 230 mls/hr IV NOW STA Stop: 10/24/18 06:49 Last Infusion: 10/24/18 07:09 Dose: 0 mls/hr Documented by: [id number] Admin: 10/24/18 06:34 Dose: 230 mls/hr Documented by: [id number] Sodium Chloride (Nss 1000ml) 1,000 mls @ 999 mls/hr IV .Q1H1M ONE Stop: 10/24/18 08:15 Last Admin: 10/24/18 10:11 Dose: Not Given Documented by: [id number] Sodium Chloride (Nss 1000ml) 500 mls @ 999 mls/hr IV .Q31M ONE Stop: 10/24/18 07:59 Last Admin: 10/24/18 10:20 Dose: Not Given Documented by: [id number] Sodium Chloride (Nss 1000ml) 500 mls @ 999 mls/hr IV .Q31M ONE Stop: 10/24/18 11:41 Last Admin: 10/24/18 11:36 Dose: 999 mls/hr Documented by: [id number] Morphine Sulfate (Morphine Sulfate) 4 mg IV NOW STA Stop: 10/24/18 05:07 Last Admin: 10/24/18 05:14 Dose: 4 mg Documented by: [id number] Morphine Sulfate (Morphine Sulfate) 4 mg IV NOW STA Stop: 10/24/18 06:33 Last Admin: 10/24/18 06:34 Dose: 4 mg Documented by: [id number] Description This is a 21 electrode EEG with a single channel dedicated to limited EKG. The electrodes were placed in accordance with the International 10-20 system. REPORT: At the onset of the EEG, the patient is awake. The background activity consists of 10-11 Hz, persistent, posteriorly dominant, moderate amplitude, symmetric and rhythmic activity that is reactive to eye opening. Anteriorly, it consists of a mixture of low voltage indeterminate activity and 15-25 Hz, persistent, low amplitude, symmetric and rhythmic activity. Stepwise intermittent photic stimulation and hyperventilation do not induce any abnormalities. Drowsiness is characterized by low amplitude mixed frequency activity, roving eye movements, and decreased eye blinking and muscle artifact. IMPRESSION: This is a normal awake and drowsy EEG. There is no evidence of focal slowing or epileptiform activity.
[2018-10-24] MEDS: PIPERACILLIN/TAZOBACTAM 3.375 GM in DEXTROSE 5% 100 ML IV SCH ×2 (12:16→20:40)
[2018-10-24 12:50] LABS: Basophils # (auto) 0.02 K/uL (0-0.2); Basophils % (auto) 0.2 %; Eosinophils # (auto) 0.06 K/uL (0-0.5); Eosinophils % (auto) 0.6 %; Hematocrit (blood only) 37.8 % (37-47); Hemoglobin 12.3 g/dL (12.0-16.0); Immature Granulocytes # (auto) 0.01 K/uL (0.00-0.02); Immature Granulocytes % (auto) 0.1 %; Lymphocytes # (auto) 2.11 K/uL (1.2-3.4); Lymphocytes % (auto) 21.4 %; Mean Corpuscular Hgb Conc 32.5 g/dL (32-36); Mean Corpuscular Volume 87.1 fL (80-100); Mean Platelet Volume 12.1 fL (7.4-10.4); Monocytes # (auto) 0.42 K/uL (0.11-0.59); Monocytes % (auto) 4.3 %; Neutrophils # (auto) 7.23 K/uL (1.4-6.5); Neutrophils % (auto) 73.4 %; Platelet Count 178 K/uL (130-400); RDW Coefficient of Variation 13.9 % (11.5-14.5); RDW Standard Deviation 44.5 fL (36.4-46.3); Red Blood Count 4.34 M/uL (4.2-5.4); White Blood Count 9.85 K/uL (4.8-10.8)
[2018-10-24 13:07] LABS: Albumin Globulin Ratio 0.9 (0.9-2); Albumin Level 2.4 gm/dl (3.4-5.0); BUN Creatinine Ratio 9.9 (10-20); Bilirubin,Total 0.4 mg/dl (0.2-1); Calcium 7.8 mg/dl (8.5-10.1); Creatinine Clr Calc Pharmacy 98.1 ml/min; Est GFR (African American) 119.4; Globulin 2.6 gm/dl (2.5-4.0); Potassium 3.6 mmol/L (3.5-5.1)
--- NOTE | 2018-10-24 14:15 | CT Scan Report ---
CT SCAN OF THE BRAIN WITHOUT IV CONTRAST CLINICAL HISTORY: Fall. COMPARISON STUDY: CT of the brain performed earlier the same day 10/24/2018. TECHNIQUE: Unenhanced axial CT scan of the brain is performed from the vertex to the skull base. A d ose lowering technique was utilized adhering to the principles of ALARA. CT DOSE: 537.48 mGy.cm FINDINGS: Brain parenchyma: The brain parenchyma is normal in appearance. There is no hemorrhage, mass effect, or evidence of acute territorial ischemia by CT criteria. Owens-white matter differentiation is preser latanya. No extra-axial fluid collection is seen. Ventricles, sulci, cisterns: Normal in configuration. Intracranial vasculature: The visualized intracranial vasculature at the skull base is normal in appe arance. Calvarium: There is no depressed calvarial fracture. Sinuses and mastoids: The visualized paranasal sinuses are clear. The mastoid air cells are well pneu matized. Orbits: The bony orbits are grossly intact. IMPRESSION: There is no acute intracranial abnormality and there has been no change from today's paula ier examination. Electronically signed by: Alvino Hadley M.D. 10/24/2018 2:13 PM
[2018-10-24] MEDS ORDERED: Nursing to Pharmacy Communication ONE (14:37)
[2018-10-24] MEDS: GABAPENTIN 400 MG CAP PO SCH ×2 (14:45→20:41)
[2018-10-24] MEDS: THIAMINE HCL 100 MG TAB PO SCH (14:47)
--- NOTE | 2018-10-24 15:34 | Consultation Report ---
DATE OF CONSULTATION: 10/24/2018 REASON FOR CONSULTATION: Loss of consciousness, tingling in bilateral upper extremities. HISTORY OF PRESENT ILLNESS: The patient is a 52-year-old right-handed female who underwent gastric bypass in the end of March of 2018. This was complicated by an esophageal stricture, and within 3 months, the patient lost 90 pounds. In August, she developed a right foot drop and by her report a nerve conduction has been consistent with a right peroneal palsy. As noted above, she has lost significant weight and she is a habitual leg crosser. On the day of the event she was in her usual state of health. 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 She was seated for most of that time, was up and down somewhat before attempting to go to bed at about 2:00 a.m. The patient had been eating a walnut and her mouth felt dry and she felt as if she was choking. She is not to take anything by mouth for half an hour after she eats. She vomited while standing outside and then decided to go to the bathroom. She is amnestic for some of the events thereafter, but she remembers hitting the floor with the right side of her face. She remembers immediately having pain in her hands. She apparently had incontinence and was staring for about 2 minutes thereafter. She has some amnesia for the events of the surrounding that episode, there was no tongue biting. Of note, the staring occurred after the family sat her up on a toilet. She was by report not diaphoretic. She chronically has a tremor and her blood sugar was 148. Leading up to this event, the patient has had chronic left arm pain without left neck pain. There was some consideration of doing cervical epidural steroids, but they elected not to do so as the patient was scheduled to have surgery within the next several weeks. After the fall, the patient indicates that she was diffusely weak. She has no history of seizure. She has not had any recent medication withdrawal. She has been off Chantix and Wellbutrin since October 05. She does not consume alcohol to any extent. CT of the head noncontrast was noncontributory. CT of the cervical spine showed a tiny acute nondisplaced fracture of the anterior inferior corner of the C6 vertebral body. LABORATORY DATA: Her white count, H and H and platelet count are normal. Coags normal. Chemistry profile notable for a lactic acid of 2.6, point of care blood sugar of 257. Sodium 143, potassium 3.6, BUN and creatinine 7/0.6. Urinalysis notable for 1+ blood, positive nitrites, 2+ leukocyte esterase, greater than 30 white cells per high power field. Zinc level is pending. Lyme disease negative. PAST MEDICAL HISTORY: Notable for type 2 diabetes on insulin, hypothyroidism, urinary tract infection in August, right foot drop, chronic pain, status post dorsal column stimulator, fibromyalgia, fatty liver, "transient ischemic attack". HOME MEDICATIONS: Butalbital, hydrocodone, Zofran, pantoprazole, Lantus, occasional Flexeril, promethazine, gabapentin 300 three times a day, Synthroid. PAST SURGICAL HISTORY: Gastric bypass, dorsal column stimulator. SOCIAL HISTORY: Smokes, does not drink alcohol. FAMILY HISTORY: Not thought to be contributory. ALLERGIES: IODINE, OMEPRAZOLE, PEANUT, BETADINE, ERYTHROMYCIN BASE. PHYSICAL EXAMINATION: GENERAL: The patient is a well-developed female, appearing mildly chronically ill with a hard cervical collar in place. NEUROLOGIC: Pupils are equal, round and reactive to light. The optic nerves are grossly normal. There is no ophthalmoparesis, no nystagmus. There is normal facial symmetry, speech and language. There is bilateral right greater than left tibialis anterior atrophy. Tinel's is negative at the ulnar groove. ABDOMEN: Soft and nontender. MUSCULOSKELETAL: Tinel's is positive at the right fibular head. The patient is very dysesthetic to touch in the arms. I believe strength is full in the bilateral uppers with equal rapid alternating movements in the bilateral lowers with the exception of TA on the right which is trace and the peroneus longus, which is also trace. Her reflexes are absent in the uppers, the right knee jerk is 2, left 0, ankle jerk 0, toes are downgoing, no clonus. Sensory examination: Vibration is present in the ankles. No clear sensory loss is noted in the uppers. Gait was not tested. IMPRESSION: Loss of consciousness in the setting of sepsis. Query fall related to orthostatic hypotension(query vagal related to vomiting) staring when she was seated upright on the toilet, query seizure, query postconcussive alteration of consciousness. PLAN: 1. CT of the head with contrast if the patient can be safely pretreated for CONTRAST ALLERGY. MRI of course would be appropriate, but cannot be performed due to dorsal column stimulator EEG. Recommend checking orthostatic blood pressures. The patient could have an autonomic neuropathy. 2. The reason for the dysesthesias in the uppers is unclear. The patient certainly fell and could have had some peripheral nerve injury. The dysesthesias seem to be somewhat more in an ulnar distribution. Alternatively, the patient may have had some transient cord contusion. Clinically, there is no evidence of a myelopathic process on exam. Recommend orthopedic consultation with close neurologic followup, repeat imaging of the cervical spine and/or spine if there is any neurologic deterioration. Recommend increasing gabapentin to 400 mg 3 times a day An option might include to use some steroids for the paresthesias in the uppers, although the patient is hesitant to do so as she was told to avoid steroids in the preoperative. The patient could have multiple mononeuropathies, although the most likely etiology of these multiple mononeuropathies would be on the basis of diabetes. Lyme titer was checked which is appropriate. She may need nerve conduction in the uppers if the symptoms persist. We will follow with you. ADRIEN
[2018-10-24] MEDS: HYDROCODONE/ACETAMINOPHEN 10/325 TAB PO PRN ×2 (15:41→21:50)
--- NOTE | 2018-10-24 16:35 | Pharmacy Report ---
Pharmacy Abx Initial Consult - Date of Service October 24, 2018 - Pharmacy Dosing Scope Date of Consult: 10/24/18 Consultation requested by: Dr. Nevarez Pharmacy is consulted to initiate Vancomycin and Zosyn IV dosing therapy, order appropriate labs and adjust drug dose/frequency. - Subjective The patient is a 52 year old F admitted on 10/24/18 07:48. - Objective Height: 5 ft 4 in Weight: 70.3 kg Vital Signs (Past 12hrs): Vital Signs Temp Pulse Pulse Resp BP BP BP 10/24/18 15:21 36.8 C 92 H 22 132/72 10/24/18 09:49 88 10/24/18 09:30 36.5 C 91 H 16 111/77 10/24/18 08:37 89 18 111/71 10/24/18 07:20 90 16 116/81 10/24/18 06:21 95 H 16 121/88 10/24/18 05:58 35.5 C L 10/24/18 05:23 97 H 20 112/82 10/24/18 05:11 34.6 C L 10/24/18 04:55 115 H 20 138/84 Pulse Ox 10/24/18 15:21 98 10/24/18 09:49 10/24/18 09:30 96 10/24/18 08:37 92 10/24/18 07:20 98 10/24/18 06:21 98 10/24/18 05:58 10/24/18 05:23 97 10/24/18 05:11 10/24/18 04:55 99 Lab Results (24hrs): Laboratory Tests (24 Hours) 10/24/18 10/24/18 10/24/18 12:01 12:01 05:00 WBC 9.85 Neut # (Auto) 7.23 H Creatinine 0.66 D 1.03 Est Cr Clr Drug Dosing 98.1 62.9 10/24/18 05:00 WBC 19.40 H Neut # (Auto) 15.90 H Creatinine Est Cr Clr Drug Dosing Micro Results: 10/24/18 06:20 Aerobic Blood Culture - Pending Blood Anaerobic Blood Culture - Pending 10/24/18 06:19 Aerobic Blood Culture - Pending Blood Anaerobic Blood Culture - Pending 10/24/18 05:55 Urine Culture - Pending Urine,Straight Cath - Assessment & Plan Assessment 52 year old F presenting to the ED after she had a fall and was not responsive for 2 minutes. Patient arrived with a low body temp of 34.6. She was started on Vanc and Zosyn for concern for sepsis. Urine analysis is growing bacteria. Urine culture and blood cultures x2 are currently pending. Plan Vancomycin and Zosyn for empiric treatment-48 hours Vancomycin IV * Estimated PK Parameters: Vd 0.7 L/kg, Ezekiel 0.057 hr-1, t1/2 12hr * Loading dose: 1500 mg (21 mg/kg) * Maintenance dose: 1000 mg IV (14 mg/kg) every 12 hours * Trough will be ordered if therapy is continued longer than 48 hours Piperacillin/tazobactam * 3.375 g bolus administered over 30 minutes, then 3.375g IV extended infusion every 8 hours for CrCl greater than 20 mL/min Pharmacy will continue to follow and will adjust dose/frequency as necessary. Thank you.
[2018-10-24] MEDS: VANCOMYCIN HCL 1,000 MG in SODIUM CHLORIDE 0.9% 250 ML IV SCH (17:08)
[2018-10-24] MEDS: CYCLOBENZAPRINE HCL 10 MG TAB PO PRN (17:08)
[2018-10-25] MEDS: HYDROCODONE/ACETAMINOPHEN 10/325 TAB PO PRN ×3 (03:13→12:12)
[2018-10-25] MEDS: PIPERACILLIN/TAZOBACTAM 3.375 GM in DEXTROSE 5% 100 ML IV SCH ×3 (03:13→20:50)
[2018-10-25] MEDS: CYCLOBENZAPRINE HCL 10 MG TAB PO PRN (03:48)
[2018-10-25] MEDS: VANCOMYCIN HCL 1,000 MG in SODIUM CHLORIDE 0.9% 250 ML IV SCH (05:24)
[2018-10-25 06:02] LABS: Basophils # (auto) 0.02 K/uL (0-0.2); Basophils % (auto) 0.3 %; Eosinophils # (auto) 0.15 K/uL (0-0.5); Eosinophils % (auto) 2.5 %; Hematocrit (blood only) 36.6 % (37-47); Hemoglobin 11.8 g/dL (12.0-16.0); Lymphocytes # (auto) 2.45 K/uL (1.2-3.4); Lymphocytes % (auto) 40.6 %; Mean Corpuscular Hgb Conc 32.2 g/dL (32-36); Mean Platelet Volume 12.4 fL (7.4-10.4); Monocytes # (auto) 0.34 K/uL (0.11-0.59); Monocytes % (auto) 5.6 %; Neutrophils # (auto) 3.08 K/uL (1.4-6.5); Platelet Count 148 K/uL (130-400); RDW Coefficient of Variation 14.1 % (11.5-14.5); RDW Standard Deviation 45.5 fL (36.4-46.3); Red Blood Count 4.16 M/uL (4.2-5.4); White Blood Count 6.04 K/uL (4.8-10.8)
[2018-10-25 06:20] LABS: Estimated Average Glucose 140 mg/dl
[2018-10-25] MEDS ORDERED: LEVOTHYROXINE SODIUM 25 MCG TABLET PO SCH (06:30)
[2018-10-25 06:40] LABS: Albumin Globulin Ratio 0.8 (0.9-2); Albumin Level 2.3 gm/dl (3.4-5.0); Bilirubin Direct 0.1 mg/dl (0-0.2); Bilirubin,Total 0.3 mg/dl (0.2-1); Calcium 8.3 mg/dl (8.5-10.1); Creatinine Clr Calc Pharmacy 115.5 ml/min; Est GFR (Non-African American) 108.7; Globulin 2.8 gm/dl (2.5-4.0); Potassium 3.5 mmol/L (3.5-5.1); Total Protein 5.1 gm/dl (6.4-8.2)
[2018-10-25] MEDS ORDERED: POTASSIUM CHLORIDE 20 MEQ TABCR PO STA (07:18)
[2018-10-25] MEDS: GABAPENTIN 400 MG CAP PO SCH ×3 (07:52→20:46)
[2018-10-25] MEDS: BACLOFEN 10 MG TAB PO SCH ×2 (07:52→20:46)
[2018-10-25] MEDS: THIAMINE HCL 100 MG TAB PO SCH (07:52)
[2018-10-25] MEDS: VIT D PO SCH (07:53)
[2018-10-25] MEDS: CALCIUM 600 MG PO SCH (07:53)
[2018-10-25] MEDS: FLINTSTONES COMPLETE PO SCH (07:53)
[2018-10-25] MEDS: INSULIN ASPART 100 UNITS/ML 3 ML PEN SC SCH ×4 (07:54→21:46)
--- NOTE | 2018-10-25 12:43 | Hospitalist Progress Note ---
Date of Service October 25, 2018 Assessment & Plan (1) Sepsis: suspected sepsis Urinary tract infection Hypothermia mild -admission body temperature 34.6 celsius in the ED;elevated WBC to 19.4, Matias hugger placed in the ED, UA positive for bacteria, follow urine culture, and blood culture, patient empirically started on Zosyn and Vancomycin, patient received IV fluids of 30 mg/kg as per sepsis criteria,lactic acid downtrended - as of 10/25/18 admission blood cultures no growth to date, urine cultures of E.coli with sensitivities pending. will stop Vancomycin and continue Zosyn fracture of cervical spine C6 Degenerative disc disease of spine -tiny acute nondisplaced fracture at the anterior-inferior corner of the C6 vertebral body on CT neck -neck in c-spine collar in the ED -patient cannot obtain MRI because of Spinal Cord Stimulator -as per outpatient notes, patient known to have Degenerative disc disease of L3 to L5 with Lumbar hemilaminectomy in the past and also degeneration of cervical intervertebal disc -patient also follows with pain management clinic and outpatient notes on 10/19/18 describes neck and left upper extremity pain after a fall from 2 months ago and that pain of left upper extremity of bicep/forearm/hand numbness -orthopedic service recommends to continue c-spine collar Neuropathy of the extremities -pain and sensitivity below the elbows of both arms on this admission -area involved does not match dermatomes of cervical spine -possibly that numbness and pain if patient had fell on her arms when at home -neurology service increased patient's gabapentin from 300 mg TID to 400 mg TID for neuropathic pain control -pain medications 1/2 tab of norco q3 hours, prn acetaminophen or prn dilaudid if more pain Ruled out Seizure -neurology consult -CT head without contrast negative -CT head with and without contrast ordered -10/24/18 normal awake and drowsy EEG. There is no evidence of focal slowing or epileptiform activity. 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 -diagnosed in August, -PT/OT evaluations -will need outpatient EMG and neurology follow up Hypothyroidism -chart review of TSH of August to September TSH levels have been very low but normal free T4 -repeat TSH normal as 0.460 and normal free T4 in this admission -resume levothyroxine at home which is dosed as 100 mcg daily History of gastric bypass -gastric bypass in March, - Vickey-en-Y gastrojejunostomy with gastrojejunal anastomosis -patient reports adequate thiamine levels -checking B12 and folic acid and thiamine levels and zinc levels Nonalcoholic Steatohepatitis (SOTOMAYOR) Cirrhosis -outpatient EGD on 10/21/18: Normal esophagus. Dilated to slightly beyond 18 mm with a balloon dilator. Biopsies were obtained from the distal esophagus. Vickey-en-Y gastrojejunostomy with gastrojejunal anastomosis characterized by healthy appearing mucosa -patient to follow up outpatient biopsy results -monitor Ruled out dysphagia -patient vomiting after eating at home -patient passed speech and swallow evaluations and on oral diet Full Code Subjective Patient displeased with current pain management. She reports at home she takes the 1/2 tab of norco q3 hours. she initially asked for transfer to different hospital but she agrees to stay in hospital as medical doctor adjusting her pain medications. She requested a different nursing provider. Medical doctor informed nurse of patient's nurses. Patient able to move lower extremities and upper extremities at bedside side better than day of admission but she reports that working with physical therapy today that her walking is not baseline. Patient denies chest pain or shortness of breath. no abdomen pain. no nausea, no vomiting. denies bowel movement today Physical Exam Eyes: PERRL, conjunctivae normal, anicteric sclerae EOM intact bilaterally ENMT: external ear and nose normal, oropharynx normal Respiratory: normal respiratory effort, lungs clear to auscultation Cardiovascular: RRR, no murmur, no edema Gastrointestinal (Abdomen): normal bowel sounds, soft, nontender, no hepatosplenomegaly Musculoskeletal: Head/Neck/Chest: normocephalic and head atraumatic Psychiatric: A+Ox3, euthymic affect Results & Data Vital Signs (Past 12 Hours) Vital Signs Temp Pulse Pulse Resp BP BP Pulse Ox 10/25/18 12:06 37.0 C 69 18 104/68 10/25/18 10:36 70 10/25/18 07:15 36.4 C L 62 18 128/58 L 99 10/25/18 03:47 36.4 C L 78 18 105/70 97 (1) Sepsis Sepsis type: sepsis due to unspecified organism Qualified Code(s): A41.9 - S epsis, unspecified organism
--- NOTE | 2018-10-25 12:51 | Orthopedic Consultation ---
Date of Consultation October 25, 2018 Assessment & Plan (1) Cervical spine fracture: At this time we will maintain the c-collar at all times. She is undergoing extensive work-up regarding her sepsis. We will discuss possible ACDF in the near future this of course be after we determine the etiology of her infection is treated appropriately. She understands agrees. Present on Admission?: Yes History of Present Illness Reason for Consultation: Neck and arm pain Attending Physician: Jagdish Nevarez MD History of Present Illness This is a 52-year-old female well-known to us that presents emergency room yesterday. Apparently she had a fall yesterday while at her home. She was taken to emergency room and diagnosed with a small fracture involving the see 6 vertebral body. She is complaining of some bilateral wrist discomfort. She still has an ongoing left radiculopathy. We have seen her in the past regarding her radiculopathy and eventually schedule her for an anterior cervical discectomy and fusion at this level. Today she is also noting some difficulty with ambulation though she denies any radicular complaints leg pain. She denies any loss of bowel bladder control. She denies any numbness or tingling upper lower extremities. She does have an established right foot drop. Allergies Allergy/AdvReac Type Severity Reaction Status Date / Time Iodinated Contrast- Oral and Allergy Unknown ANAPHYLAXIS Verified 10/24/18 05:55 IV Dye omeprazole Allergy Unknown ANAPHYLAXIS Verified 10/24/18 05:55 peanut Allergy Unknown LIPS SWELL Verified 10/24/18 05:55 FROM PEANUT SHELL DUST povidone-iodine Allergy Unknown . Verified 10/24/18 05:55 [From Betadine] erythromycin base AdvReac Unknown GI UPSET Verified 10/24/18 05:55 Home Medications Home Medications Medication Instructions Recorded Confirmed Type Chantix 1 mg PO BID 06/01/18 10/24/18 History ducilpvolj-ofwnagmylg-mmr-cod 1 tab PO DIRECTED PRN 06/01/18 10/24/18 History hydrocodone-acetaminophen 1 tab PO TID PRN 06/01/18 10/24/18 History ondansetron HCl 4 mg PO Q6H PRN 06/01/18 10/24/18 History pantoprazole 40 mg PO QAM 06/01/18 10/24/18 History Lantus Solostar U-100 Insulin 22 unit SUBCUT QPM 09/06/18 10/24/18 History cyclobenzaprine 10 mg PO BID PRN 09/06/18 10/24/18 History promethazine 25 mg PO Q6H PRN 10/05/18 10/24/18 History gabapentin 300 mg PO TID 10/13/18 10/24/18 History insulin lispro [Humalog KwikPen See Rx Instructions .ROUTE .COMPLEX 10/13/18 10/24/18 History Insulin] levothyroxine [Synthroid] 100 mcg PO QAM 10/13/18 10/24/18 History Patient History Medical History Fibromyalgia (Chronic) Fatty liver (Acute 09/29/10) Hyperglycemia (Acute) TIA (transient ischemic attack) Tobacco dependence syndrome (Acute 09/29/10) Diabetes Surgical History Hx of gastric bypass Social History Preferred Language: Tajik Communication Ability: Effective Consultants Intern Required: No Beliefs That Will Affect Care: None marital status: Current Living Situation: Spouse Other Information That Helps Us Care for You: No Feels Safe at Home: Yes Safety Concerns: Feels Safe At This Time Smoking Status: Current some day smoker Tobacco Type: cigarettes Cigarettes Per Day: 3-5 Second Hand Exposure: No Hx Alcohol Use: No Hx Substance Use: No Physical Exam Physical Exam: On exam she does have a c-collar in place. She has no pain to palpation or percussion of the thoracolumbar musculature. She does exhibit plus 5 out of 5 bilateral quadriceps hip flexors dorsiflexion bilaterally. She is a foot drop on the right. Sensory appears to be symmetric and intact light touch and cold bilateral upper and lower extremities. Results & Data Vital Signs (Past 12 Hours) Vital Signs Temp Pulse Pulse Resp BP BP Pulse Ox 10/25/18 12:06 37.0 C 69 18 104/68 10/25/18 10:36 70 10/25/18 07:15 36.4 C L 62 18 128/58 L 99 10/25/18 03:47 36.4 C L 78 18 105/70 97 (1) Cervical spine fracture Cervical vertebra fracture level: C6 Encounter type: initial encounter Fracture alignment: nondisplaced Fracture morphology: other fracture Fracture type: closed Qualified Code(s): S12.591A - Other nondisplaced fracture of sixth cervical vertebra, initial encounter for closed fracture
[2018-10-25] MEDS: HYDROmorphone INJ 0.5 MG/0.5 ML SYR IV PRN ×2 (13:08→19:13)
--- NOTE | 2018-10-25 13:12 | Pain Management Consultation ---
Date of Consultation October 25, 2018 Assessment & Plan (1) Cervical disc disease: Present on Admission?: Yes (2) Cervical radiculopathy: Present on Admission?: Yes (3) Peripheral neuropathy: Present on Admission?: Yes (4) UTI (urinary tract infection): Hematuria presence: without hematuria Urinary tract infection type: site unspecified Qualified Code(s): N39.0 - Urinary tract infection, site not specified Present on Admission?: Yes (5) Cervical spine fracture: 1. Patient's primary complaint is dysesthetic pain involving the palmar aspects of the hands bilaterally with nondermatomal patterns of unclear etiology. Patient had been tentatively planned by ACDF and Dr. Hansen is currently on board. Would defer further imaging of the cervical spine with consideration of MRI at his discretion. Outpatient follow-up with EMG may provide further diagnostic information regarding the complaints of bilateral hand pain. 2. Gabapentin was recently titrated to 400 mg 3 times daily and would recommend maintaining current dosing for the next few weeks prior to further titration. 3. There is no role for interventional pain management at this time 4. Would recommend no change in her chronic utilization of hydrocodone which is currently #90 tablets/month as confirmed by review of PDMP prescribed by Dr. Fry. Thank you for allowing us to participate in the care of Ms. Judd Cervical vertebra fracture level: C6 Encounter type: initial encounter Fracture alignment: nondisplaced Fracture morphology: other fracture Fracture type: closed Qualified Code(s): S12.591A - Other nondisplaced fracture of sixth cervical vertebra, initial encounter for closed fracture Present on Admission?: Yes History of Present Illness Reason for Consultation: Neuropathic pain of bilateral hands Requesting Physician: Jagdish Nevarez MD Attending Physician: Jagdish Nevarez MD History of Present Illness Mrs. Judd is a 52-year-old white female who was admitted due to a fall in her bathroom for which she is amnestic for some of the events thereafter with the report from her potentially indicating seizure type activity. The patient has history of gastric bypass surgery March 2018 complicated by an esophageal stricture and lost approximately 90 pounds within 3 months. She developed a right foot drop acutely in August without known injury and per her report has been diagnosed with a right peroneal palsy. She has been utilizing an AFO type brace since that time and has been referred for neurosurgical evaluation which she reports is scheduled for November.. She also has chronic axial neck pain and left upper extremity radicular pain and has been followed by pain management in [place] but epidural injection was deferred. She was ul timately evaluated by Dr. Hansne who recommended ACDF tentatively to be completed within the next few months. The patient is reporting acute onset of pain involving her hands bilaterally predominantly involving the palmar aspect extending towards the wrist and distal forearm region which she describes as a burning dysesthetic type of pain. She reported this occurred time of her fall and has been persistent since that time. She does have a chronic history of some neuropathic pain involving the lower extremities. CT examination of the cervical spine upon this admission that showed a tiny acute nondisplaced fracture of the anterior inferior corner of the C6 vertebral body for which she has been placed in a c-collar. Patient is also been found to be septic thought to be from urinary tract source and is currently being treated with IV antibiotics. She reports utilization of gabapentin in the outpatient setting which has been titrated to 400 mg 3 times daily upon this admission for bev atment of her neuropathic pain. Patient denies any significant axial neck pain and has no radicular pain in the right upper extremity and is reporting no change in her chronic left upper extremity radicular symptoms since the time of her fall injury. There was an episode of some bowel incontinence around the time of her fall and amnestic event but she has not experienced any bowel or bladder incontinence since that time. She denies saddle anesthesias. She has no lumbar radicular pain. She has no further constitutional complaints at this time. Plan of care discussed with Dr. Barton. Pain Assessment Full Body Front + Back: 1. Palmar aspect 2. Palmar aspect Allergies Allergy/AdvReac Type Severity Reaction Status Date / Time Iodinated Contrast- Oral and Allergy Unknown ANAPHYLAXIS Verified 10/24/18 05:55 IV Dye omeprazole Allergy Unknown ANAPHYLAXIS Verified 10/24/18 05:55 peanut Allergy Unknown LIPS SWELL Verified 10/24/18 05:55 FROM PEANUT SHELL DUST povidone-iodine Allergy Unknown . Verified 10/24/18 05:55 [From Betadine] erythromycin base AdvReac Unknown GI UPSET Verified 10/24/18 05:55 Home Medications Home Medications Medication Instructions Recorded Confirmed Type Chantix 1 mg PO BID 06/01/18 10/24/18 History ssrmsbrwje-czokusnnby-mlz-cod 1 tab PO DIRECTED PRN 06/01/18 10/24/18 History hydrocodone-acetaminophen 1 tab PO TID PRN 06/01/18 10/24/18 History ondansetron HCl 4 mg PO Q6H PRN 06/01/18 10/24/18 History pantoprazole 40 mg PO QAM 06/01/18 10/24/18 History Lantus Solostar U-100 Insulin 22 unit SUBCUT QPM 09/06/18 10/24/18 History cyclobenzaprine 10 mg PO BID PRN 09/06/18 10/24/18 History promethazine 25 mg PO Q6H PRN 10/05/18 10/24/18 History gabapentin 300 mg PO TID 10/13/18 10/24/18 History insulin lispro [Humalog KwikPen See Rx Instructions .ROUTE .COMPLEX 10/13/18 10/24/18 History Insulin] levothyroxine [Synthroid] 100 mcg PO QAM 10/13/18 10/24/18 History Patient History Medical History Diabetes Fibromyalgia (Chronic) Fatty liver (Acute 09/29/10) Hyperglycemia (Acute) TIA (transient ischemic attack) Tobacco dependence syndrome (Acute 09/29/10) Surgical History Hx of gastric bypass Social History Preferred Language: Andorran Communication Ability: Effective Rn Navigator Required: No Beliefs That Will Affect Care: None marital status: Current Living Situation: Spouse Other Information That Helps Us Care for You: No Feels Safe at Home: Yes Safety Concerns: Feels Safe At This Time Smoking Status: Current some day smoker Tobacco Type: cigarettes Cigarettes Per Day: 3-5 Second Hand Exposure: No Hx Alcohol Use: No Hx Substance Use: No Physical Exam Physical Exam: General: Patient sitting quietly in exam room in no acute distress. Speech and thought process appropriate. Mood and affect appropriate. Cognition intact. Head: Normocephalic and atraumatic. ENT: No evidence of nasal or oral mucosal lesions. Mucous membranes are moist. Eyes: Pupils equal round reactive to light. Neck: C-collar in place. Upper extremities: No visible abnormalities. Yellowish discoloration of left first and second fingers from tobacco utilization. No visible abnormalities on the palmar aspect of the hand. Patient resistant to any physical examination of the palmar aspect of her hands with guarding. When distracted patient was able to perform handgrip without obvious discomfort with a strength rated at a 5/5. Any attempted palpation of the palmar aspect contributed to retraction/guarding. No evidence of allodynia, hyperpathia or hyperalgesic response over the dorsal or volar aspect of the wrist and forearm bilaterally. Sensation was intact distally to the fingers to sharp and dull. Biceps and triceps maneuvering 5/5. Abdomen: Soft and nondistended. No organomegaly. Bowel sounds active. Lower extremities: EHL and dorsiflexion absent on the right, all other strength rated at a 5/5 and equal bilaterally. Sensation was intact distally without focal deficit. No evidence of edema, erythema or skin breakdown of the foot ankle or distal lower extremities. Neurologic: Cranial nerves grossly intact. Ambulatory function not witnessed. Results Diagnostic Review CT: non enhanced and reports reviewed CT Findings: [place], [place] [phone] CT Scan Report Patient: SOCRATES JUDD Date: 10/24/18 MR#: [id number]: [address] [facility] Acct ID:[id number]: [address] Date: 1965[facility] Zip: [place] [address] Age: 52Location: ED Sex: F Room/Bed: Att Phy: Diagnosis: FALL [place] Phy: Irma Fry MDService Date: 10/24/18 Fam Phy: Interpreting Phy: Tom Ba MD Admit Phy: Ordering Phy: Veronica Tovar PA-C cc: ~ CERVICAL SPINE CT CT DOSE: 921.95 mGy.cm HISTORY: fall, head injury, neck pain TECHNIQUE: Multiaxial CT images of the cervical spine were performed and reformatted in the sagittal and coronal plane without the use of contrast. A dose lowering technique was utilized adhering to the principles of ALARA. COMPARISON: Cervical spine 10/05/2018. FINDINGS: There is a tiny acute nondisplaced fracture within the anterior- inferior endplate at C6. No additional fractures identified within the cervical spine. Mild disc space narrowing within the lower cervical spine. The C1-C2 interval is intact. No pneumothorax. No subluxation. IMPRESSION: There is a tiny acute nondisplaced fracture at the anterior-inferior corner of the C6 vertebral body. No additional fractures identified. Electronically signed by: Tom Ba M.D. 10/24/2018 7:21 AM Dictated: 10/24/18716 Transcribed: 10/24/18716 [place], [place] [phone] CT Scan Report Patient: SOCRATES JUDD Date: 10/24/18 MR#: [id number]: [address] [facility] Acct ID:[id number]: [address] Date: 1965[facility] Zip: [place] [address] Age: 52Location: 2S Sex: F Room/Bed: [facility] Att Phy: Jagdish Nevarez MDDiagnosis: S/P FALL AND POSSIBLE SEPSIS [place] Phy: Irma Fry MDService Date: 10/24/18 Fam Phy: Interpreting Phy: Alvino Hadley MD Admit Phy: Jagdish Nevarez MD Ordering Phy: Jagdish Nevarez MD cc: ~ CT SCAN OF THE BRAIN WITHOUT IV CONTRAST CLINICAL HISTORY: Fall. COMPARISON STUDY: CT of the brain performed earlier the same day 10/24/2018. TECHNIQUE: Unenhanced axial CT scan of the brain is performed from the vertex to the skull base. A dose lowering technique was utilized adhering to the principles of ALARA. CT DOSE: 537.48 mGy.cm FINDINGS: Brain parenchyma: The brain parenchyma is normal in appearance. There is no hemorrhage, mass effect, or evidence of acute territorial ischemia by CT criteria. Owens-white matter differentiation is preserved. No extra-axial fluid collection is seen. Ventricles, sulci, cisterns: Normal in configuration. Intracranial vasculature: The visualized intracranial vasculature at the skull base is normal in appearance. Calvarium: There is no depressed calvarial fracture. Sinuses and mastoids: The visualized paranasal sinuses are clear. The mastoid air cells are well pneumatized. Orbits: The bony orbits are grossly intact. IMPRESSION: There is no acute intracranial abnormality and there has been no change from today's earlier examination. Electronically signed by: Alvino Hadley M.D. 10/24/2018 2:13 PM Dictated: 10/24/18 1410 Transcribed: 10/24/18 1410
[2018-10-25] MEDS: HYDROCODONE/ACETAMINOPHEN 10/325 TAB PO SCH ×4 (13:15→22:05)
[2018-10-25] MEDS: INSULIN GLARGINE SOLOSTAR 100 UNITS/ML 3 ML PEN SC SCH (13:42)
[2018-10-25] MEDS: DOCUSATE SODIUM 100 MG CAP PO SCH ×2 (13:44→20:46)
[2018-10-25 13:50] LABS: Folate (Folic Acid) 7.63 ng/ml (>5.38)
--- NOTE | 2018-10-25 16:47 | Neurology Progress Note ---
Date of Service October 25, 2018 Assessment & Plan (1) Sepsis: 1. IV antibiotics treat to culture 2. orthostatic blood pressures - q shift (2) Loss of alertness: 1. EEG - no seizure focus seen 2. continue thiamine 100 mg daily 3. PT/OT for discharge needs 4. fall- orthopedics for C6 - Jade consulted with likely ACDF continue [place] J collar 5. gabepentin 400 mg TID can be increase to 600 mg TID for neuropathic pain 6. pain mgt - signing off for now 7. will see in outpatient after Jade surgery and neurosurgery for possible intervention of peroneal nerve evaluation. Supervising Physician Co-Signing Physician Notes I have seen and discussed above patient with Dr Violette Marshall, neurology Pt seen and examined. Arms less dysesthetic, but still bothersome. Pt felt unable to walk with PT. Exam notable for full strength with the exception of R TA and PL. Reflexes are absent x right knee jerk, toes downgoing. Dec sensation bl fifth finger and ulnar forearm, dorsum R foot. Imp LOC, poss vag al or orthostatic. no evidence of sz re EEG. REc checking orthostatics, poss autonomic neuropathy. R peroneal palsy, likely compressive related wt loss, DM, let crossing. Etiol of UE sx, less clear, poss bl ulnar, v cord injury, although no myelopathic signs on exam and thecal sac is not compromised on CT. If gait is off baseline would rec repeat CT c spine. Further management re nondisplaced c fx deferred to ortho spine. For neuropathic pain will increase gabapentin to 600 mg twice a day. Will follow with you. ALMA Marshall MD Mandi Mcgee is a 52 year old white female who was admitted due to a fall in her bathroom for which she is amnestic for some of the events thereafter with the report from her potentially indicating seizure type activity. She had gastric bypass surgery March 2018 complicated by an esophageal stricture and lost approximately 90 pounds within 3 months. She developed a right foot drop acutely in August without known injury and had an EEG with diagnosed right peroneal palsy. She has been utilizing an AFO type brace since that time and has been referred for neurosurgical evaluation which she reports is scheduled for November. She also has chronic axial neck pain and left upper extremity radicular pain and has been followed by pain management in [place] but epidural injection was deferred. She was ultimately evaluated by Dr. Hansen who recommended ACDF tentatively to be completed within the next few months. She states since the fall she has acute onset of pain involving her hands bilaterally predominantly involving the palmar aspect extending towards the wrist and distal forearm region which she describes as a burning dysesthetic type of pain. She does have a chronic history of some neuropathic pain involving the lower extremities. CT examination of the cervical spine upon this admission that showed a tiny acute nondisplaced fracture of the anterior inferior corner of the C6 vertebral body for which she has been placed in a c-collar. She was septic from urinary tract source and is currently being treated with IV antibiotics. She is on gabepentin 400 mg 3 times daily for her neuropathic pain. She had extensive labs including vit b12, thiamine, zinc, copper, vit d, PTH. She was found to have thiamine deficiency and given IV thiamine. It was not continued orally but had been restarted in the hospital. denies CP, SOB, abdominal pain, one sided weakness, N, V, vision changes, radicular pain. Physical Exam Physical Exam: gen: alert NAD lungs CTA CV RRR moves UE and hold phone with no issues but states when touch increases pain leans forward to take off her socks with her hands without issues and does not appear in pain right hip flex 5/5 bilaterally, plantar flex ext left 5/5 right flex 5/5 ext 0/5 sensation decrease to light and cool touch left > right Results & Data Vital Signs (Past 12 Hours) Vital Signs Temp Pulse Pulse Resp BP BP Pulse Ox 10/25/18 15:09 36.7 C 75 18 147/90 H 96 10/25/18 12:06 37.0 C 69 18 104/68 10/25/18 10:36 70 10/25/18 07:15 36.4 C L 62 18 128/58 L 99 Laboratory Results Abnormal lab results 10/24/18 10/24/18 10/24/18 Range/Units 05:00 16:27 20:41 RBC (4.2-5.4) M/uL Hgb (12.0-16.0) g/dL Hct (37-47) % MPV (7.4-10.4) fL Chloride (98-107) mmol/L BUN (7-18) mg/dl Creatinine (0.6-1.2) mg/dl POC Glucose 130 H 113 H (70-99) Fasting Glucose (70-99) mg/dl Hemoglobin A1c 6.5 H (4.5-5.6) % Calcium (8.5-10.1) mg/dl AST (15-37) U/L Total Protein (6.4-8.2) gm/dl Albumin (3.4-5.0) gm/dl Albumin/Globulin Ratio (0.9-2) Vitamin B12 (211-911) pg/ml 10/25/18 10/25/18 10/25/18 Range/Units 05:31 05:31 06:55 RBC 4.16 L (4.2-5.4) M/uL Hgb 11.8 L (12.0-16.0) g/dL Hct 36.6 L (37-47) % MPV 12.4 H (7.4-10.4) fL Chloride 111 H (98-107) mmol/L BUN 3 L (7-18) mg/dl Creatinine 0.56 L (0.6-1.2) mg/dl POC Glucose 114 H (70-99) Fasting Glucose 108 H (70-99) mg/dl Hemoglobin A1c (4.5-5.6) % Calcium 8.3 L (8.5-10.1) mg/dl AST 42 H (15-37) U/L Total Protein 5.1 L (6.4-8.2) gm/dl Albumin 2.3 L (3.4-5.0) gm/dl Albumin/Globulin Ratio 0.8 L (0.9-2) Vitamin B12 (211-911) pg/ml 10/25/18 10/25/18 10/25/18 Range/Units 11:30 13:06 16:16 RBC (4.2-5.4) M/uL Hgb (12.0-16.0) g/dL Hct (37-47) % MPV (7.4-10.4) fL Chloride (98-107) mmol/L BUN (7-18) mg/dl Creatinine (0.6-1.2) mg/dl POC Glucose 124 H 121 H (70-99) Fasting Glucose (70-99) mg/dl Hemoglobin A1c (4.5-5.6) % Calcium (8.5-10.1) mg/dl AST (15-37) U/L Total Protein (6.4-8.2) gm/dl Albumin (3.4-5.0) gm/dl Albumin/Globulin Ratio (0.9-2) Vitamin B12 933 H (211-911) pg/ml Diagnostic Findings CT head-here is a tiny acute nondisplaced fracture at the anterior-inferior corner of the C6 vertebral body. No additional fractures identified. (1) Sepsis Sepsis type: sepsis due to unspecified organism Qualified Code(s): A41.9 - Sepsis, unspecified organism
[2018-10-25] MEDS: ONDANSETRON INJ 2 MG/ML 2 ML VIAL IV PRN (20:50)
[2018-10-25] MEDS: GABAPENTIN 100 MG CAP PO SCH (22:05)
[2018-10-26] MEDS: HYDROCODONE/ACETAMINOPHEN 10/325 TAB PO SCH ×4 (01:03→10:38)
[2018-10-26] MEDS: HYDROmorphone INJ 0.5 MG/0.5 ML SYR IV PRN ×2 (02:02→08:09)
[2018-10-26] MEDS: PIPERACILLIN/TAZOBACTAM 3.375 GM in DEXTROSE 5% 100 ML IV SCH (04:35)
[2018-10-26] MEDS ORDERED: LEVOTHYROXINE SODIUM 100 MCG TABLET PO SCH (06:30)
[2018-10-26] MEDS: VIT D PO SCH (07:30)
[2018-10-26] MEDS: CALCIUM 600 MG PO SCH (07:30)
[2018-10-26] MEDS: GABAPENTIN 100 MG CAP PO SCH (07:30)
[2018-10-26] MEDS: GABAPENTIN 400 MG CAP PO SCH (07:31)
[2018-10-26] MEDS: FLINTSTONES COMPLETE PO SCH (07:32)
[2018-10-26] MEDS: INSULIN GLARGINE SOLOSTAR 100 UNITS/ML 3 ML PEN SC SCH (07:33)
[2018-10-26] MEDS: BACLOFEN 10 MG TAB PO SCH (07:33)
[2018-10-26] MEDS: DOCUSATE SODIUM 100 MG CAP PO SCH (07:33)
[2018-10-26 07:59] LABS: Basophils # (auto) 0.01 K/uL (0-0.2); Basophils % (auto) 0.1 %; Eosinophils # (auto) 0.19 K/uL (0-0.5); Eosinophils % (auto) 2.4 %; Hematocrit (blood only) 40.9 % (37-47); Hemoglobin 13.2 g/dL (12.0-16.0); Immature Granulocytes # (auto) 0.01 K/uL (0.00-0.02); Immature Granulocytes % (auto) 0.1 %; Lymphocytes # (auto) 3.01 K/uL (1.2-3.4); Lymphocytes % (auto) 38.8 %; Mean Corpuscular Hgb Conc 32.3 g/dL (32-36); Mean Corpuscular Volume 89.9 fL (80-100); Mean Platelet Volume 12.1 fL (7.4-10.4); Monocytes # (auto) 0.45 K/uL (0.11-0.59); Monocytes % (auto) 5.8 %; Neutrophils # (auto) 4.09 K/uL (1.4-6.5); Neutrophils % (auto) 52.8 %; Platelet Count 163 K/uL (130-400); RDW Standard Deviation 46.1 fL (36.4-46.3); Red Blood Count 4.55 M/uL (4.2-5.4); White Blood Count 7.76 K/uL (4.8-10.8)
[2018-10-26] MEDS: THIAMINE HCL 100 MG TAB PO SCH (08:00)
[2018-10-26] MEDS ORDERED: cefTRIAXone SODIUM 1,000 MG in DEXTROSE 5% 50 ML IV SCH (08:00)
[2018-10-26 08:31] LABS: BUN Creatinine Ratio 3.8 (10-20); Calcium 8.9 mg/dl (8.5-10.1); Creatinine Clr Calc Pharmacy 101.6 ml/min; Est GFR (African American) 120.6; Est GFR (Non-African American) 104.1; Potassium 3.8 mmol/L (3.5-5.1)
[2018-10-26] MEDS: INSULIN ASPART 100 UNITS/ML 3 ML PEN SC SCH ×2 (08:49→12:46)
[2018-10-26] MEDS: CYCLOBENZAPRINE HCL 10 MG TAB PO PRN (11:07)
[2018-10-26] MEDS ORDERED: HYDROCODONE/ACETAMINOPHEN 10/325 TAB PO PRN (11:57)
[2018-10-26] MEDS ORDERED: OXYCODONE HCL 10 MG TABCR (OXYCONTIN) PO SCH (12:00)
[2018-10-26] MEDS ORDERED: SENNA 8.6 MG TAB PO SCH (12:15)
--- NOTE | 2018-10-26 12:38 | Hospitalist Progress Note ---
Date of Service October 26, 2018 Assessment & Plan (1) Sepsis: suspected sepsis Urinary tract infection Hypothermia mild -admission body temperature 34.6 celsius in the ED;elevated WBC to 19.4, Matias preciadoer placed in the ED, UA positive for bacteria, follow urine culture, and blood culture, patient empirically started on Zosyn and Vancomycin, patient received IV fluids of 30 mg/kg as per sepsis criteria,lactic acid downtrended - as of 10/25/18 admission blood cultures no growth to date, urine cultures of E.coli with sensitivities pending. will stop Vancomycin and continue Zosyn -10/26/18 urine cultures returned as pansensitive E.coli. Zosyn stopped and Ceftriaxone given Patient should continue antibiotics as amoxicillin/clavulanate 875 mg tablet BID for 10 days. Patient should have urine analysis for bacteria retested after completion of antibiotic fracture of cervical spine C6 Degenerative disc disease of spine -tiny acute nondisplaced fracture at the anterior-inferior corner of the C6 vertebral body on CT neck -neck in c-spine collar in the ED -patient cannot obtain MRI because of Spinal Cord Stimulator -as per outpatient notes, patient known to have Degenerative disc disease of L3 to L5 with Lumbar hemilaminectomy in the past and also degeneration of cervical intervertebal disc -patient also follows with pain management clinic and outpatient notes on 10/19/18 describes neck and left upper extremity pain after a fall from 2 months ago and that pain of left upper extremity of bicep/forearm/hand numbness -orthopedic service recommends to continue c-spine collar -discharge instruction: maintain the cervical collar at all times as per orthopedics. Patient should contact Dr. Hansen of [facility] at [address] [place] [address], [place] [address] on further orthopedic workup and treatment of the cervical spine Neuropathy of the extremities -pain and sensitivity below the elbows of both arms on this admission -area involved does not match dermatomes of cervical spine -possibly that numbness and pain if patient had fell on her arms when at home -during hospital stay patient's pain medicated with increasing gabapentin, hydrocodone-acetaminophen of which patient had been on by primary care doctor, and as needed dilaudid which was then replaced with oral oxymorphone -bowel regimen given while on narcotic pain medication; daily senna to prevent constipation from narcotics -[place] PDMP was checked and patient does take hydrocodone-acetaminophen from primary care doctor but as patient had recent fall at home and being evaluated with discharge plans to physical rehabilitation center at [facility], discharging medical doctor making 4 day supply prescription of oxymorphone q12 hours and 4 day supply of 0.5 tablet of hydrocodone- acetaminophen (10mg/325 mg) every 3 hours as needed for moderate to severe pain. Patient also given prescription on discharge of gabapentin 600 mg TID for neuropathic pain. Patient need to be seen by primary care doctor at rehab center and/or own [facility] affiliated primary care doctor for further prescriptions of pain medications Ruled out Seizure -neurology consult -CT head without contrast negative -CT head with and without contrast ordered -10/24/18 normal awake and drowsy EEG. There is no evidence of focal slowing or epileptiform activity. 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 possible diabetic neuropathy of extremities -HbA1c 6.5 -sliding scale insulin -in the hospital was on long acting insulin as 5 units rather then home dose 22 units and titrate as needed -Patient should take Lantus insulin as 5 units daily for now until follow up with primary medical doctor 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 -diagnosed in August, -PT/OT evaluationscompleted -discharge to [facility] for inpatient physical rehab -neurosurgery and neurology appointments 11/11/2018 9:00 AM Provider [facility] 12:00 PM Provider [facility] Department Pharmacy, [facility] Hypothyroidism -chart review of TSH of August to September TSH levels have been very low but normal free T4 -repeat TSH normal as 0.460 and normal free T4 in this admission -continue levothyroxine at home which is dosed as 100 mcg daily History of gastric bypass -gastric bypass in March, - Vickey-en-Y gastrojejunostomy with gastrojejunal anastomosis -patient reports adequate thiamine levels - B12 and folic acid are normal -continue thiamine supplements -thiamine levels and zinc levels are pending Nonalcoholic Steatohepatitis (SOTOMAYOR) Cirrhosis -outpatient EGD on 10/21/18: Normal esophagus. Dilated to slightly beyond 18 mm with a balloon dilator. Biopsies were obtained from the distal esophagus. Vickey-en-Y gastrojejunostomy with gastrojejunal anastomosis characterized by healthy appearing mucosa -patient to follow up outpatient biopsy results Ruled out dysphagia -patient vomiting after eating at home -patient passed speech and swallow evaluations and on oral diet Full Code Discharge to [facility] maintain the cervical collar at all times as per orthopedics. Patient should contact Dr. Hansen of [facility] at [address] [place] [address], [place] [address] on further orthopedic workup and treatment of the cervical spine [place] PDMP was checked and patient does take hydrocodone-acetaminophen from primary care doctor but as patient had recent fall at home and being evaluated with discharge plans to physical rehabilitation center at [facility], discharging medical doctor making 4 day supply prescription of oxymorphone q12 hours and 4 day supply of 0.5 tablet of hydrocodone- acetaminophen (10mg/325 mg) every 3 hours as needed for moderate to severe pain. Patient also given prescription on discharge of gabapentin 600 mg TID for neuropathic pain. Patient need to be seen by primary care doctor at rehab center and/or own [facility] affiliated primary care doctor for further prescriptions of pain medications daily senna to prevent constipation from narcotics Patient should continue antibiotics as amoxicillin/clavulanate 875 mg tablet BID for 10 days. Patient should have urine analysis for bacteria retested after completion of antibiotic Patient should continue thiamine B1 supplements on discharge and vitamins Patient should take Lantus insulin as 5 units daily for now until follow up with primary medical doctor scheduled follow ups 11/02/2018 1:00 PM Provider Irma Fry MD Department General Internal Medicine [facility] 11/08/2018 12:30 PM Provider [facility] Department Radiology [facility] 11/11/2018 9:00 AM Provider Guillermo High MD Department Neurosurgery, [facility] 11/12/2018 1:40 PM Provider Irma Fry MD Department General Internal Medicine [facility] 11/16/2018 12:00 PM Provider Jorge Luis Lopez Sp Department Pharmacy, [facility] 11/18/2018 11:20 AM Provider Violette Aldrich PA-C Department Neurology [facility] 12/02/2018 2:00 PM Provider Deandra Caballero MD Department Hepatology, [facility] 12/20/2018 2:00 PM Provider Edwina Choi RDN Department Nutrition & Weight Management, [facility] Discharge Diagnosis suspected sepsis from Urinary tract infection, mild Hypothermia on initial encounter on admission, nondisplaced fracture within the anterior-inferior en dplate at cervical spine C6, Neuropathy/Parasthesia, 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 Subjective Patient doing well. no acute telemetry events. upper extremity pain and mobility is improving. no fevers. no chest pain. no shortness of breath. no abdomen pain. no vomiting. no dizziness. no lightheadedness. Patient was evaluated by physical therapist and patient agrees to go to [facility] for further physical rehabilitation. we discussed at length or the discharge plans and follow ups Physical Exam Eyes: PERRL, conjunctivae normal, anicteric sclerae EOM intact bilaterally ENMT: external ear and nose normal, oropharynx normal Neck: normal visual inspection (neck in cervical spine collar) Respiratory: normal respiratory effort, lungs clear to auscultation Cardiovascular: RRR, no murmur, no edema Gastrointestinal (Abdomen): normal bowel sounds, soft, nontender, no hepatosplenomegaly Musculoskeletal: Head/Neck/Chest: normocephalic and head atraumatic Neurologic: PERRL, EOMI, accommodation nl, no face palsy, no dysarthria CN's II-XI intact bilaterally (right foot drop) Psychiatric: A+Ox3, euthymic affect Results & Data Vital Signs (Past 12 Hours) Vital Signs Temp Pulse Pulse Resp BP BP Pulse Ox 10/26/18 11:48 36.5 C 84 18 132/69 96 10/26/18 08:00 64 10/26/18 07:50 36.9 C 76 16 128/63 95 10/26/18 04:32 36.7 C 72 17 130/84 96 (1) Sepsis Sepsis type: sepsis due to unspecified organism Qualified Code(s): A41.9 - Sepsis, unspecified organism
--- NOTE | 2018-10-26 12:51 | Discharge Summary ---
Date of Service October 26, 2018 Admission HPI Per Admitting Provider 52 year old female with history of gastric bypass in March 2018, SOTOMAYOR cirrhosis, Type 2 diabetes mellitus on insulin, history of hypothyrodism on Synthroid, Urinary Tract infection in August 2018, with August 2018 diagnosis of right leg peroneal palsy, with lumbar degenerative joint disease and degeneration of cervical intervertebal disc, history of left upper neck and upper extremity pain, recent 10/21/18 upper endoscopy, who around 2 AM on 10/24/18 had a fall and episode of nonresponsiveness. As per patient she was eating her food and had some vomiting episode because the food was not going down. Then was going to the bathroom when she reported of stumbling of her feet. She fell down and and was found by who told her that she was not responding to him for 2 minutes. She reports that her called it a seizure but she was not flailing her extremities - her eyes were open and she looked like having an absent staring into space. During this time she lost bowel continence and made bowel movement. She does not recall remembering being in the way but she had usual mental status after 2 minutes and her told her what happened. In the ED patient was found to have low body temperature of 34.6 celsius and placed in Matias Hugger and started on Vanocomycin and Zosyn for concern for sepsis and urine was positive for bacteria. Patient got IV fluids. She also had cervical spin collar placed tiny acute nondisplaced fracture at the anterior- inferior corner of the C6 vertebral body on CT neck. Patient also got pain medications because of pain running down both elbows of upper extremities Patient denies fever. Patient denies headache. no dizziness. no vomiting at this time. no chest pain. no shortness of breath. breathing on room air. no abdomen pain. pain down both elbows to hands and sensitive the touch. patient can move upper extremities without motor deficits. patient can do leg raises when laying on the bed. however right foot appears to have some foot drop and less strength compared to left foot Admission Exam Per Admitting Provider Eyes: PERRL, conjunctivae normal, anicteric sclerae EOM intact bilaterally ENMT: external ear and nose normal, oropharynx normal Neck: in cervical spine collar Respiratory: normal respiratory effort, lungs clear to auscultation Cardiovascular: RRR, no murmur, no edema Gastrointestinal (Abdomen): normal bowel sounds, soft, nontender, no hepatosplenomegaly Musculoskeletal: Head/Neck/Chest: normocephalic and head atraumatic pain down both elbows to hands and sensitive the touch Neurologic: patient can move upper extremities without motor deficits. patient can do leg raises when laying on the bed. however right foot appears to have some foot drop and less strength compared to left foot Psychiatric: A+Ox3, euthymic affect Principal Diagnosis suspected sepsis from Urinary tract infection, mild Hypothermia on initial encounter on admission, nondisplaced fracture within the anterior-inferior endplate at cervical spine C6, Neuropathy/Parasthesia, 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 Discharge Exam Eyes PERRL, conjunctivae normal, anicteric sclerae EOM intact bilaterally ENMT external ear and nose normal, oropharynx normal Neck normal visual inspection (neck in cervical spine collar) Respiratory normal respiratory effort, lungs clear to auscultation Cardiovascular RRR, no murmur, no edema Gastrointestinal (Abdomen) normal bowel sounds, soft, nontender, no hepatosplenomegaly Musculoskeletal Head/Neck/Chest: normocephalic and head atraumatic Neurologic PERRL, EOMI, accommodation nl, no face palsy, no dysarthria CN's II-XI intact bilaterally (right foot drop) Psychiatric A+Ox3, euthymic affect Discharge Data Allergies Allergy/AdvReac Type Severity Reaction Status Date / Time Iodinated Contrast- Oral and Allergy Unknown ANAPHYLAXIS Verified 10/24/18 05:55 IV Dye omeprazole Allergy Unknown ANAPHYLAXIS Verified 10/24/18 05:55 peanut Allergy Unknown LIPS SWELL Verified 10/24/18 05:55 FROM PEANUT SHELL DUST povidone-iodine Allergy Unknown . Verified 10/24/18 05:55 [From Betadine] erythromycin base AdvReac Unknown GI UPSET Verified 10/24/18 05:55 Consultations 10/24/18 06:34 ED Decision to Admit Stat 10/24/18 07:22 Consult Case Management - Discharge Planning Routine Consult Neurology Routine 10/24/18 07:25 Consult Orthopedic Surgery Routine 10/25/18 08:00 Consult Pain Management Routine Ordered Studies 10/24/18 05:08 CT cervical spine wo con Urgent CT head/brain wo con Urgent 10/24/18 08:09 CT head/brain wo con Stat Hospital Course (1) Sepsis: suspected sepsis Urinary tract infection Hypothermia mild -admission body temperature 34.6 celsius in the ED;elevated WBC to 19.4, Matias ozzyer placed in the ED, UA positive for bacteria, follow urine culture, and blood culture, patient empirically started on Zosyn and Vancomycin, patient received IV fluids of 30 mg/kg as per sepsis criteria,lactic acid downtrended - as of 10/25/18 admission blood cultures no growth to date, urine cultures of E.coli with sensitivities pending. will stop Vancomycin and continue Zosyn -10/26/18 urine cultures returned as pansensitive E.coli. Zosyn stopped and Ceftriaxone given Patient should continue antibiotics as amoxicillin/clavulanate 875 mg tablet BID for 10 days. Patient should have urine analysis for bacteria retested after completion of antibiotic fracture of cervical spine C6 Degenerative disc disease of spine -tiny acute nondisplaced fracture at the anterior-inferior corner of the C6 vertebral body on CT neck -neck in c-spine collar in the ED -patient cannot obtain MRI because of Spinal Cord Stimulator -as per outpatient notes, patient known to have Degenerative disc disease of L3 to L5 with Lumbar hemilaminectomy in the past and also degeneration of cervical intervertebal disc -patient also follows with pain management clinic and outpatient notes on 10/19/18 describes neck and left upper extremity pain after a fall from 2 months ago and that pain of left upper extremity of bicep/forearm/hand numbness -orthopedic service recommends to continue c-spine collar -discharge instruction: maintain the cervical collar at all times as per orthopedics. Patient should contact Dr. Hansen of [facility] at [address] [place] [address], [place] [address] on further orthopedic workup and treatment of the cervical spine Neuropathy of the extremities -pain and sensitivity below the elbows of both arms on this admission -area involved does not match dermatomes of cervical spine -possibly that numbness and pain if patient had fell on her arms when at home -during hospital stay patient's pain medicated with increasing gabapentin, hydrocodone-acetaminophen of which patient had been on by primary care doctor, and as needed dilaudid which was then replaced with oral oxymorphone -bowel regimen given while on narcotic pain medication; daily senna to prevent constipation from narcotics -[place] PDMP was checked and patient does take hydrocodone-acetaminophen from primary care doctor but as patient had recent fall at home and being evaluated with discharge plans to physical rehabilitation center at [facility], discharging medical doctor making 4 day supply prescription of oxymorphone q12 hours and 4 day supply of 0.5 tablet of hydrocodone- acetaminophen (10mg/325 mg) every 3 hours as needed for moderate to severe pain. Patient also given prescription on discharge of gabapentin 600 mg TID for neuropathic pain. Patient need to be seen by primary care doctor at rehab center and/or own [facility] affiliated primary care doctor for further prescriptions of pain medications Ruled out Seizure -neurology consult -CT head without contrast negative -CT head with and without contrast ordered -10/24/18 normal awake and drowsy EEG. There is no evidence of focal slowing or epileptiform activity. 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 Jessica Department Pharmacy, [facility] Hypothyroidism -chart review of TSH of August to September TSH levels have been very low but normal free T4 -repeat TSH normal as 0.460 and normal free T4 in this admission -continue levothyroxine at home which is dosed as 100 mcg daily History of gastric bypass -gastric bypass in March, - Vickey-en-Y gastrojejunostomy with gastrojejunal anastomosis -patient reports adequate thiamine levels - B12 and folic acid are normal -continue thiamine supplements -thiamine levels and zinc levels are pending Nonalcoholic Steatohepatitis (SOTOMAYOR) Cirrhosis -outpatient EGD on 10/21/18: Normal esophagus. Dilated to slightly beyond 18 mm with a balloon dilator. Biopsies were obtained from the distal esophagus. Vickey-en-Y gastrojejunostomy with gastrojejunal anastomosis characterized by healthy appearing mucosa -patient to follow up outpatient biopsy results Ruled out dysphagia -patient vomiting after eating at home -patient passed speech and swallow evaluations and on oral diet Full Code Discharge to [facility] maintain the cervical collar at all times as per orthopedics. Patient should contact Dr. Hansen of [facility] at [address] [place] [address], [place] [address] on further orthopedic workup and treatment of the cervical spine [place] PDMP was checked and patient does take hydrocodone-acetaminophen from primary care doctor but as patient had recent fall at home and being evaluated with discharge plans to physical rehabilitation center at [facility], discharging medical doctor making 4 day supply prescription of oxymorphone q12 hours and 4 day supply of 0.5 tablet of hydrocodone- acetaminophen (10mg/325 mg) every 3 hours as needed for moderate to severe pain. Patient also given prescription on discharge of gabapentin 600 mg TID for neuropathic pain. Patient need to be seen by primary care doctor at rehab center and/or own [facility] affiliated primary care doctor for further prescriptions of pain medications daily senna to prevent constipation from narcotics Patient should continue antibiotics as amoxicillin/clavulanate 875 mg tablet BID for 10 days. Patient should have urine analysis for bacteria retested after completion of antibiotic Patient should continue thiamine B1 supplements on discharge and vitamins Patient should take Lantus insulin as 5 units daily for now until follow up with primary medical doctor scheduled follow ups 11/02/2018 1:00 PM Provider Irma Fry MD Department General Internal Medic ine [facility] 11/08/2018 12:30 PM Provider [facility] Department Radiology [facility] 11/11/2018 9:00 AM Provider Guillermo High MD Department Neurosurgery, [place] 11/12/2018 1:40 PM Provider Irma Fry MD Department General Internal Medicine [facility] 11/16/2018 12:[address] [facility] Jessica Sp Department Pharmacy, [facility] 11/18/2018 11:20 AM Provider Violette Aldrich PA-C Department Neurology [facility] 12/02/2018 2:00 PM Provider Deandra Caballero MD Department Hepatology, [facility] 12/20/2018 2:00 PM Provider Edwina Choi RDN Department Nutrition & Weight Management, [facility] Discharge Diagnosis suspected sepsis from Urinary tract infection, mild Hypothermia on initial encounter on admission, nondisplaced fracture within the anterior-inferior endplate at cervical spine C6, Neuropathy/Parasthesia, 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 Total Time Total Time Spent Total Time Spent (In Minutes): 40 minutes Total Time Includes: Examination of the Patient, Discharge Planning, Medication Reconciliation and Communication With Other Providers Discharge Plan Discharge Items Patient Disposition: Transfer Inpatient Rehab Fac Reason For Visit: S/P FALL AND POSSIBLE SEPSIS Discharge Diagnosis: suspected sepsis from Urinary tract infection, mild Hypothermia on initial encounter on admission, nondisplaced fracture within the anterior-inferior endplate at cervical spine C6, Neuropathy/Parasthesia, 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 Condition: Fair Discharge Goals: Improve disease control and Improve function Activity: Per 'Additional Instructions' section Non-emergency contact: Primary Care Provider Call non-emergency contact if: you have any medication questions Follow-up/Referrals: Irma Fry MD [Primary Care Provider] - Diet: Carb Consistent or DM2 Addtl Provider Instructions: Discharge to [facility] maintain the cervical collar at all times as per orthopedics. Patient should contact Dr. Hansen of [facility] at [address] [place] [address], [place] [address] on further orthopedic workup and treatment of the cervical spine [place] PDMP was checked and patient does take hydrocodone-acetaminophen from primary care doctor but as patient had recent fall at home and being evaluated with discharge plans to physical rehabilitation center at [facility], discharging medical doctor making 4 day supply prescription of oxymorphone q12 hours and 4 day supply of 0.5 tablet of hydrocodone-acetami nophen (10mg/325 mg) every 3 hours as needed for moderate to severe pain. Patient also given prescription on discharge of gabapentin 600 mg TID for neuropathic pain. Patient need to be seen by primary care doctor at rehab center and/or own [facility] affiliated primary care doctor for further prescriptions of pain medications daily senna to prevent constipation from narcotics Patient should continue antibiotics as amoxicillin/clavulanate 875 mg tablet BID for 10 days. Patient should have urine analysis for bacteria retested after completion of antibiotic Patient should continue thiamine B1 supplements on discharge and vitamins Patient should take Lantus insulin as 5 units daily for now until follow up with primary medical doctor scheduled follow ups 11/02/2018 1:00 PM Provider Irma Fry MD Department General Internal Medicine [facility] 11/08/2018 12:30 PM Provider [facility] Department Radiology [facility] 11/11/2018 9:00 AM [facility]12[facility] 1:40 PM Provider Irma Fry MD Department General Internal Medicine [facility] 11/16/2018 12:[address] [facility] Jessica Department Pharmacy, [facility] 11/18/2018 11:20 AM Provider Violette Aldrich PA-C Department Neurology [facility] 12/02/2018 2:00 PM Provider Deandra Caballero MD Department Hepatology, [facility] 12/20/2018 2:00 PM Provider Edwina Choi RDN Department Nutrition & Weight Management, [facility] Prescriptions: New gabapentin 600 mg Tablet 600 mg PO TID 30 Days Qty: 90 RF: 0 amoxicillin-pot clavulanate 875-125 mg Tablet 1 tab PO BID 10 Days Qty: 20 RF: 0 oxymorphone 10 mg tablet extended release 12 hr 10 mg PO Q12H 4 Days Qty: 8 RF: 0 hydrocodone-acetaminophen 10-325 mg tablet 0.5 tab PO Q3H PRN (Reason: moderate to severe pain) 4 Days Qty: 16 RF: 0 Lantus Solostar U-100 Insulin 100 unit/mL (3 mL) Insulin Pen 5 unit SC DAILY 30 Days Qty: 3 RF: 0 Flintstones Complete (iron) Tablet,Chewable 1 tab PO QAM 30 Days Qty: 30 RF: 0 thiamine HCl (vitamin B1) [Vitamin B-1] 100 mg Tablet 100 mg PO QAM 10 Days Qty: 10 RF: 0 sennosides [Senokot] 8.6 mg Tablet 8.6 mg PO QAM 30 Days Qty: 30 RF: 0 Continued promethazine 25 mg Tablet 25 mg PO Q6H PRN (Reason: Nausea) RF: 0 levothyroxine [Synthroid] 100 mcg tablet 100 mcg PO QAM RF: 0 insulin lispro [Humalog KwikPen Insulin] 100 unit/mL insulin pen See Rx Instructions .ROUTE .COMPLEX RF: 0 pantoprazole 40 mg tablet,delayed release (DR/EC) 40 mg PO QAM RF: 0 Chantix 1 mg Tablet 1 mg PO BID RF: 0 vnxlpdnebl-qcgfloyqsj-ivk-cod 57-113-62-30 mg capsule 1 tab PO DIRECTED PRN (Reason: Headache) RF: 0 ondansetron HCl 4 mg tablet 4 mg PO Q6H PRN (Reason: Nausea) RF: 0 cyclobenzaprine 10 mg tablet 10 mg PO BID PRN (Reason: Muscle Spasm) RF: 0 Discontinued gabapentin 100 mg capsule 300 mg PO TID RF: 0 hydrocodone-acetaminophen 10-325 mg tablet 1 tab PO TID PRN (Reason: Pain) RF: 0 Lantus Solostar U-100 Insulin 100 unit/mL (3 mL) insulin pen 22 unit subcut QPM RF: 0 Stand-Alone Forms: [facility] Discharge Orders: Discharge Order (Routine); Ordered 10/26/18 Ordered By: Jagdish Nevarez Skilled Items Patient informed of condition?: Yes DNR: No Discharge Level of Care: Acute rehab Communicable Disease: No Discharge Prognosis: Stable Admission Data Admit Date/Time: 10/24/18 07:48 Attending Provider: Jagdish Nevarez Admit Provider: Jagdish Nevarez Primary Care Provider: Irma Fry Other Providers: Alan Silverman ; Violette Marshall ; Mack Barton ; Pedro Hansen Service: Telemetry Other Pending Studies at Discharge: Yes Studies:: thiamine levels and zinc levels are pending
[2018-10-26] MEDS ORDERED: GABAPENTIN 600 MG TAB PO SCH (14:00)
[2018-10-26] MEDS ORDERED: AMOXICILLIN/CLAVULANATE 875 MG TAB PO SCH (21:00)
[2018-10-29 10:30] LABS: Zinc 29 mcg/dL (60-130)
== END 2018-10-26 14:00 | DRG 872 ==
LOC: ED 04:48 → 2S 07:48

== ENCOUNTER 2018-12-01 05:54 | Inpatient (IN) ==
--- NOTE | 2018-11-09 12:11 | PAT Medication Instructions ---
Medication Instructions Date of Service November 09, 2018 Home Medications Medication Instructions Recorded gabapentin 600 mg PO TID 30 Days #90 tab 10/26/18 sennosides [Senokot] 8.6 mg PO QAM 30 Days #30 tab 10/26/18 Chantix 1 mg PO BID zzhjtzgbhj-aylgcqcgft-qym-cod 1 tab PO DIRECTED NEEDED ondansetron HCl 4 mg PO Q6H NEEDED pantoprazole 40 mg PO QAM cyclobenzaprine 10 mg PO BID NEEDED promethazine 25 mg PO Q6H NEEDED insulin lispro [Humalog KwikPen Insulin] See Rx Instructions .ROUTE .COMPLEX levothyroxine [Synthroid] 100 mcg PO QAM gabapentin 600 mg PO TID sennosides [Senokot] 8.6 mg PO QAM Juice Plus 2 cap PO DAILY bupropion HCl 150 mg PO BID calcium carbonate-vitamin D3 [Calcium 600 + D(3)] 1 cap PO DAILY hydrocodone-acetaminophen 0.5 tab PO Q3H NEEDED insulin glargine [Lantus Solostar U-100 Insulin] 22 unit SC 1500 pediatric fnmzsmzp-fjky-oaw [Flintstones Complete (iron)] 2 tab PO QAM DO NOT take the morning of surgery pediatric xbweuiuy-elne-ycn [Flintstones Complete (iron)] 2 tab PO QAM calcium carbonate-vitamin D3 [Calcium 600 + D(3)] 1 cap PO DAILY sennosides [Senokot] 8.6 mg PO QAM Juice Plus 2 cap PO DAILY cyclobenzaprine 10 mg PO BID NEEDED promethazine 25 mg PO Q6H NEEDED trvhzqtofr-zlpzrnzijq-quj-cod 1 tab PO DIRECTED NEEDED ondansetron HCl 4 mg PO Q6H NEEDED Chantix 1 mg PO BID Take morning of surgery With a small sip of water, OTHERWISE NOTHING TO EAT OR DRINK AFTER MIDNIGHT: hydrocodone-acetaminophen 0.5 tab PO Q3H NEEDED (if needed; stop 4 hours before surgery) bupropion HCl 150 mg PO BID levothyroxine [Synthroid] 100 mcg PO QAM gabapentin 600 mg PO TID pantoprazole 40 mg PO QAM Take evening before surgery insulin glargine [Lantus Solostar U-100 Insulin] 22 unit SC 1500 hydrocodone-acetaminophen 0.5 tab PO Q3H NEEDED (if needed) bupropion HCl 150 mg PO BID gabapentin 600 mg PO TID cyclobenzaprine 10 mg PO BID NEEDED (if needed) promethazine 25 mg PO Q6H NEEDED (if needed) vndpauvvkz-bjkfpzhhxn-ywn-cod 1 tab PO DIRECTED NEEDED (if needed) ondansetron HCl 4 mg PO Q6H NEEDED (if needed) Chantix 1 mg PO BID Other Notes If you have any questions please call us at [phone] or [phone] or [phone] or [phone]
--- NOTE | 2018-11-09 13:07 | Anesthesiology Consultation ---
Date of Service November 09, 2018 Assessment & Plan (1) Encounter for pre-operative examination: - No previous anesthesia records re: intubation. - Will likely be a difficult intubation due to the fact that patient is in a hard collar for C6 fracture. Patient is unable to move neck, but surgery is to address C6 issue. Chart Review Chart Review: Patient seen in Pre Admission Testing Consults Requested none No medical clearance was ordered prior to surgery, but patient was seen by PCP on 11/10 and he is aware and did discuss upcoming surgery. Teaching & Discussion Pre-Anesthesia Teaching/Discussion Notes: Instructed NPO after midnight before surgery, except medications with 15 cc of water. Medication instructions provided according to the PAT guidelines. History Surgery Operation Date: 12/01/18 07:45 Proposed Procedures p C6-C7 Anterior Cervical Discectomy and Fusion, Spinal Cord Monitoring - Pedro Hansen DO Height/Weight Height: 5 ft 4 in Weight: 68.3 kg Allergies Allergy/AdvReac Type Severity Reaction Status Date / Time Iodinated Contrast- Oral and Allergy Unknown ANAPHYLAXIS Verified 10/24/18 05:55 IV Dye omeprazole Allergy Unknown ANAPHYLAXIS Verified 10/24/18 05:55 peanut Allergy Unknown LIPS SWELL Verified 10/24/18 05:55 FROM PEANUT SHELL DUST povidone-iodine Allergy Unknown blisters Verified 11/08/18 09:06 [From Betadine] erythromycin base AdvReac Unknown GI UPSET Verified 10/24/18 05:55 Medications Home Medications Medication Instructions Recorded Confirmed Last Taken Chantix 1 mg PO BID 06/01/18 11/08/18 10/04/18 eduohufmts-tvnpiqxncp-glp-cod 1 tab PO DIRECTED PRN 06/01/18 11/08/18 10/01/18 ondansetron HCl 4 mg PO Q6H PRN 06/01/18 11/08/18 Unknown pantoprazole 40 mg PO QAM 06/01/18 11/08/18 10/23/18 cyclobenzaprine 10 mg PO BID PRN 09/06/18 11/08/18 10/03/18 promethazine 25 mg PO Q6H PRN 10/05/18 11/08/18 10/05/18 06:00 insulin lispro [Humalog KwikPen See Rx Instructions .ROUTE .COMPLEX 10/13/18 11/08/18 10/23/18 Insulin] levothyroxine [Synthroid] 100 mcg PO QAM 10/13/18 11/08/18 10/23/18 gabapentin 600 mg PO TID 30 Days #90 tab 10/26/18 11/08/18 Unknown sennosides [Senokot] 8.6 mg PO QAM 30 Days #30 tab 10/26/18 11/08/18 Unknown Juice Plus 2 cap PO DAILY 11/08/18 11/08/18 Unknown bupropion HCl 150 mg PO BID 11/08/18 11/08/18 Unknown calcium carbonate-vitamin D3 1 cap PO DAILY 11/08/18 11/08/18 Unknown [Calcium 600 + D(3)] hydrocodone-acetaminophen 0.5 tab PO Q3H PRN 11/08/18 11/08/18 Unknown insulin glargine [Lantus Solostar 22 unit SC 1500 11/08/18 11/08/18 Unknown U-100 Insulin] pediatric vdsprhqo-zxss-hyh 2 tab PO QAM 11/08/18 11/08/18 Unknown [Flintstones Complete (iron)] Past Medical History Medical History Diabetes TYPE 2; IDDM Fibromyalgia TIA (transient ischemic attack) POSSIBLE HISTORY. CONFLICTING INFORMATION GIVEN TO PATIENT, MAY HAVE BEEN A COMPLEX MIGRAINE. Tobacco dependence syndrome (09/29/10) Sepsis (Resolved) 10.24.18 R/T UTI Anxiety Cervical vertebral fracture C6 S/P FALL ON 10/24/2018. TREATED AT [facility]. Chronic back pain Chronic neck pain Cirrhosis Degenerative disc disease Depression Falls frequently Foot drop RIGHT GERD (gastroesophageal reflux disease) History of esophageal stricture Hyperlipidemia HX. NO MEDS CURRENTLY Hypothyroidism Migraine HX Osteoarthritis Peptic ulcer disease HX Peripheral neuropathy BILATERAL FEET Temporomandibular joint disorder MILD. CLICKS BUT NEVER LOCKED. Urinary tract infection Exercise / Class Metabolic Activity III < 4 Walking/Shop/Light housework (s/p cervical fracture. Limited activity. Is doing PT daily. Denies CP or SOB. ) Past Family History Family History Family/Other Family hx of colon cancer Father Family history of diabetes mellitus Grandmother (Maternal) Family history of diabetes mellitus Past Surgical History Surgical History Hx of gastric bypass History of appendectomy History of breast biopsy MULITPLE ON BILATERAL BREASTS History of section History of cholecystectomy History of colonoscopy History of esophageal dilatation History of esophagogastroduodenoscopy (EGD) History of herniorrhaphy UMBILICAL History of laminectomy LUMBAR AREA X2 Hx of lumpectomy (-) RIGHT BREAST S/P ANSHU-BSO S/P insertion of spinal cord stimulator [facility]. Turns it off for surgery - has remote. Past Anesthesia History No Hx of Anesthesia Complications and No Family Hx of Anesthesia Complications History of PONV No Hx of PONV and No Hx of Motion Sickness STOP BANG Total 0 Social History Smoking Status: Current some day smoker tobacco type: cigarettes Smoking cigarettes per day: 3-5 OCCASIONALLY Do You Dip or Chew Tobacco: No Hx Alcohol Use: No Hx Substance Use: No Review of Systems Patient denies chest pain, shortness of breath, dyspnea on exertion, reflux, cough, wheezing, palpitations. + Joint Pain (Neck) +Acid Reflux (controlled with current medications) Physical Exam Vital Signs BP: 115/81 P: 90 R: 18 T: 98.3 SPO2: 96% on RA ENMT Mouth: + dentures (Upper plate) Mallampati Class: II Unable to assess TM distance due to patient being in a hard collar for C6 fracture. Neck + limited neck extension Patient is in a hard collar that she is unable to take off due to C6 fracture Respiratory normal respiratory effort Auscultation: lungs clear to auscultation bilaterally Cardiovascular Rate/Rhythm: regular rate and regular rhythm Heart Sounds: no murmur Patient is in a hard collar that she is unable to take off due to C6 fracture. Unable to assess carotids. Neurologic moves all extremities Psychiatric Orientation: alert and oriented x 3 Testing Laboratory Results 11/09/18 13:56 11/09/18 13:56 PT 10.8 Seconds (9.0-12.0) 11/09/18 13:56 INR 1.1 (0.9-1.1) 11/09/18 13:56 APTT 27.6 Seconds (21.0-31.0) 11/09/18 13:56 Urine Color Yellow 11/10/18 Unknown Urine Appearance Clear (Clear) 11/10/18 Unknown Urine pH 5.0 (4.5-7.5) 11/10/18 Unknown Ur Specific [place] 1.018 (1.000-1.030) 11/10/18 Unknown Urine Protein Negative (Negative) 11/10/18 Unknown Urine Glucose (UA) Negative (Negative) 11/10/18 Unknown Urine Ketones Negative (Negative) 11/10/18 Unknown Urine Nitrite Negative (Negative) 11/10/18 Unknown Ur Leukocyte Esterase Negative (Negative) 11/10/18 Unknown Blood Type A Positive 11/09/18 13:56 Antibody Screen NEGATIVE 11/09/18 13:56 Electrocardiogram Date: 11/09/18 Findings: + NSR @ (79) and + no change from (10/24/18) Cannot rule out anterior infarct, age undetermined Chest X-Ray Date: 10/24/18 Findings: + NAD
[2018-11-09 15:26] LABS: BUN Creatinine Ratio 9.3 (10-20); Calcium 9.2 mg/dl (8.5-10.1); Creatinine Clr Calc Pharmacy 116.2 ml/min; Est GFR (African American) 126.8; Est GFR (Non-African American) 109.4
[2018-11-09 16:19] LABS: Basophils # (auto) 0.02 K/uL (0-0.2); Basophils % (auto) 0.3 %; Eosinophils # (auto) 0.16 K/uL (0-0.5); Eosinophils % (auto) 2.2 %; Hematocrit (blood only) 41.2 % (37-47); Hemoglobin 13.6 g/dL (12.0-16.0); Immature Granulocytes # (auto) 0.01 K/uL (0.00-0.02); Immature Granulocytes % (auto) 0.1 %; Lymphocytes # (auto) 3.37 K/uL (1.2-3.4); Lymphocytes % (auto) 45.7 %; Mean Corpuscular Hemoglobin 28.6 pg (25-34); Mean Corpuscular Volume 86.7 fL (80-100); Monocytes # (auto) 0.39 K/uL (0.11-0.59); Monocytes % (auto) 5.3 %; Neutrophils # (auto) 3.43 K/uL (1.4-6.5); Neutrophils % (auto) 46.4 %; Platelet Count 238 K/uL (130-400); RDW Coefficient of Variation 14.1 % (11.5-14.5); RDW Standard Deviation 44.5 fL (36.4-46.3); Red Blood Count 4.75 M/uL (4.2-5.4); White Blood Count 7.38 K/uL (4.8-10.8)
[2018-11-09 16:33] LABS: INR 1.1 (0.9-1.1); Partial Thromboplastin Time 27.6 Seconds (21.0-31.0); Prothrombin Time 10.8 Seconds (9.0-12.0)
[2018-11-10 09:55] LABS: Appearance Urine Clear (Clear); Bilirubin Urine Negative (Negative); Blood Urine Negative (Negative); Color Urine Yellow; Glucose Urine UA Negative (Negative); Ketones Urine Negative (Negative); Leukocyte Esterase Urine Negative (Negative); Nitrite Urine Negative (Negative); Protein Urine Negative (Negative); Specific Gravity Urine 1.018 (1.000-1.030); Urobilinogen Urine Negative (Negative)
[2018-12-01] MEDS ORDERED: CEFAZOLIN 1000MG 1,000 MG/7.5 ML SYR IV SCH (06:00)
[2018-12-01] MEDS ORDERED: LR 15ML/HR IV SCH (06:00)
[2018-12-01] MEDS ORDERED: ROCURONIUM BROMIDE 10 MG/ML 5 ML VIAL ONE (06:31)
[2018-12-01] MEDS ORDERED: PROPOFOL IV EMULSION 10 MG/ML 20 ML VIAL IV ONE (06:31)
[2018-12-01] MEDS ORDERED: DEXAMETHASONE SOD INJ 4 MG/ML VIAL ONE (06:31)
[2018-12-01] MEDS ORDERED: MIDAZOLAM HCL 1 MG/ML 2ML VIAL ONE (06:31)
[2018-12-01] MEDS ORDERED: LIDOCAINE HCL 2% 2 ML VIAL/AMP(20MG/ML) INFIL ONE (06:31)
[2018-12-01] MEDS ORDERED: ONDANSETRON INJ 2 MG/ML 2 ML VIAL ONE ×2 (06:31→08:47)
[2018-12-01] MEDS ORDERED: GLYCOPYRROLATE 0.2 MG/ML VIAL ONE (06:31)
[2018-12-01] MEDS ORDERED: NEOSTIGMINE METHYLSULFATE 1 MG/ML 10ML VIAL ONE (06:31)
[2018-12-01] MEDS ORDERED: fentaNYL citrate 100 MCG/2 ML VIAL ONE (06:32)
[2018-12-01] MEDS ORDERED: KETAMINE HCL INJ 50 MG/ML 10 ML VIAL ONE (06:32)
[2018-12-01] MEDS ORDERED: ONDANSETRON INJ 2 MG/ML 2 ML VIAL IV PRN ×2 (06:48→11:11)
[2018-12-01] MEDS ORDERED: ePHEDrine sulfate 50 MG/ML AMP IV PRN (06:48)
[2018-12-01] MEDS ORDERED: ATROPINE SULFATE 0.1 MG/ML 10ML SYR IV PRN (06:48)
[2018-12-01] MEDS ORDERED: BACITRACIN INJ 50,000 UNIT VIAL ONE (06:55)
--- NOTE | 2018-12-01 07:33 | History & Physical Bridge Note ---
Date of Service December 01, 2018 History & Physical Bridge Note I have examined the patient, reviewed the History & Physical and in the interval since the performance of the History & Physical I have noted the following changes of clinical significance: no changes noted
--- NOTE | 2018-12-01 07:34 | History & Physical Report ---
Date of Service December 01, 2018 Assessment & Plan (1) Cervical radiculopathy: Anterior cervical discectomy and fusion C6-7 Present on Admission?: Yes History of Present Illness Chief Complaint: Neck and arm pain Primary Care Provider: Irma Fry MD This is a 52-year-old female that presents with chronic persistent neck and arm pain. After failing extensive course of nonoperative care she is here for surgical intervention. Allergies Allergy/AdvReac Type Severity Reaction Status Date / Time Iodinated Contrast- Oral and Allergy Unknown ANAPHYLAXIS Verified 12/01/18 06:31 IV Dye omeprazole Allergy Unknown ANAPHYLAXIS Verified 12/01/18 06:31 peanut Allergy Unknown LIPS SWELL Verified 12/01/18 06:31 FROM PEANUT SHELL DUST povidone-iodine Allergy Unknown blisters Verified 12/01/18 06:31 [From Betadine] erythromycin base AdvReac Unknown GI UPSET Verified 12/01/18 06:31 Home Medications Home Medications Medication Instructions Recorded Confirmed Type Chantix 1 mg PO BID 06/01/18 12/01/18 History hcupsbroap-mgsefivbse-eex-cod 1 tab PO DIRECTED PRN 06/01/18 12/01/18 History ondansetron HCl 4 mg PO Q6H PRN 06/01/18 12/01/18 History pantoprazole 40 mg PO QAM 06/01/18 12/01/18 History cyclobenzaprine 10 mg PO BID PRN 09/06/18 12/01/18 History promethazine 25 mg PO Q6H PRN 10/05/18 12/01/18 History insulin lispro [Humalog KwikPen See Rx Instructions .ROUTE .COMPLEX 10/13/18 12/01/18 History Insulin] levothyroxine [Synthroid] 100 mcg PO QAM 10/13/18 12/01/18 History Juice Plus 2 cap PO DAILY 11/08/18 12/01/18 History bupropion HCl 150 mg PO BID 11/08/18 12/01/18 History calcium carbonate-vitamin D3 1 cap PO DAILY 11/08/18 12/01/18 History [Calcium 600 + D(3)] hydrocodone-acetaminophen 0.5 tab PO Q3H PRN 11/08/18 12/01/18 History insulin glargine [Lantus Solostar 22 unit SC 1500 11/08/18 12/01/18 History U-100 Insulin] pediatric ufbfjlzg-cziz-dlp 2 tab PO QAM 11/08/18 12/01/18 History [Flintstones Complete (iron)] amoxicillin-pot clavulanate 1 tab PO BID 12/01/18 12/01/18 History [Augmentin] gabapentin 600 mg PO TID 12/01/18 12/01/18 History Past Med/Surg History Medical History Diabetes TYPE 2; IDDM Fibromyalgia TIA (transient ischemic attack) POSSIBLE HISTORY. CONFLICTING INFORMATION GIVEN TO PATIENT, MAY HAVE BEEN A COMPLEX MIGRAINE. Tobacco dependence syndrome (09/29/10) Bronchitis (Acute) currently under treatment with Augmentin. Sinus infection (Acute) Sinus infection 11/15/18. Remained unresolved after treatment with zithromax. Notified MD 11/24/18. Given prescription for 10 day course of Augmentin. Currently taking. Sepsis (Resolved) 10.24.18 R/T UTI Anxiety Cervical vertebral fracture C6 S/P FALL ON 10/24/2018. TREATED AT [facility]. Chronic back pain Chronic neck pain Cirrhosis Degenerative disc disease Depression Falls frequently Foot drop RIGHT GERD (gastroesophageal reflux disease) History of esophageal stricture Hyperlipidemia HX. NO MEDS CURRENTLY Hypothyroidism Migraine HX Osteoarthritis Peptic ulcer disease HX Peripheral neuropathy BILATERAL FEET Temporomandibular joint disorder MILD. CLICKS BUT NEVER LOCKED. Urinary tract infection Surgical History Hx of gastric bypass History of appendectomy History of breast biopsy MULITPLE ON BILATERAL BREASTS History of section History of cholecystectomy History of colonoscopy History of esophageal dilatation History of esophagogastroduodenoscopy (EGD) History of herniorrhaphy UMBILICAL History of laminectomy LUMBAR AREA X2 Hx of lumpectomy (-) RIGHT BREAST S/P ANSHU-BSO S/P insertion of spinal cord stimulator [facility]. Turns it off for surgery - has remote. Family History Family/Other Family hx of colon cancer Father Family history of diabetes mellitus Grandmother (Maternal) Family history of diabetes mellitus Social History Preferred Language: Belgian Communication Ability: Effective Erector Operator Required: No Beliefs That Will Affect Care: None marital status: Current Living Situation: Spouse and Family Other Information That Helps Us Care for You: No Feels Safe at Home: Yes Safety Concerns: Feels Safe At This Time Smoking Status: Current some day smoker Tobacco Type: cigarettes ; Cigarettes Per Day: 3-5 OCCASIONALLY ; Do You Dip or Chew Tobacco: No ; Second Hand Exposure: Yes ; Tobacco Cessation Education Requested by Patient: No Hx Alcohol Use: No Hx Substance Use: No Physical Exam Physical Exam: Patient is alert and oriented neurologically intact. Results & Data Vital Signs (Past 12 Hours) Vital Signs Temp Pulse Resp BP Pulse Ox 12/01/18 06:24 36.7 C 88 18 131/85 96
[2018-12-01] MEDS ORDERED: FLOSEAL HEMOSTATIC MATRIX 10ML TOP ONE (08:27)
[2018-12-01] MEDS ORDERED: PHENYLEPHRINE 100MCG/ML 5ML SYR ONE (08:31)
[2018-12-01] MEDS ORDERED: SUCCINYLCHOLINE 100MG/5ML SYR ONE (08:47)
--- NOTE | 2018-12-01 09:09 | Operative Report ---
Post Operative Report Pre & Post Diagnosis Operation Date: 12/01/18 07:45 Pre-Op Diagnosis: Spinal Stenosis, Cervical Region C6-7 Post-Op Diagnosis: Spinal Stenosis, Cervical Region C6-7 Procedure Operation Date: 12/01/18 07:45 Actual Procedures #1 anterior cervical discectomy with bilateral foraminotomies C6-7. #2 anterior cervical arthrodesis C6-7. #3 placement of 8 mm cortical allograft filled with DBM at C6-7. #4 application of juan plate and screws across C6-7. Surgeon Pedro Hansen, Fleet Driver Kelly Urbina Estimated Blood Loss 20 Findings Consistent with Post-Op Diagnosis Specimens None Indications This is a 52-year-old female presents with significant cervical radiculopathy after failing extensive course of nonoperative care is here for surgical intervention. Description of Procedure Patient was met with identified and informed consent obtained. Patient was then taken to the operative suite underwent intubation placed in a supine position Shakir table the head Casanova head insulation board saw operator. All bony prominences well-padded eyes inspected to ensure no external pressure placed upon but this point the anterior cervical spine was prepped and draped in normal sterile fashion. Sharp dissection with the assistance of Bovie cautery was performed down to and exposing the anterior cervical spine from C6-7. Self-retaining retractors placed. And then performed a complete discectomy of C6-7 out to the uncovertebral joints bilaterally. I removed all posterior annular fibers longit udinal ligament to perform complete decompression. Endplates were then burred to subcortical being bone and a 8 mm cortical allograft filled with DBM tapped in position. Distraction apparatus was removed and a juan plate and screws applied with the assistance of fluoroscopy. The incision was then copiously irrigated explored to ensure no damage to surrounding structures remaining bleeding. 10 round OLGA drain inserted. The incision was then closed with 2 Vicryl in the fashion of 4 Monocryl for final skin closure. Steri-Strip sterile dressings placed. Patient will continue to PACU stable condition. Please note spinal cord monitoring was utilized that the procedure no changes noted. I attest to the content of the Intraoperative Record and any orders documented t herein. Any exceptions are noted below.
--- NOTE | 2018-12-01 09:23 | Fluoroscopy Report ---
FL cervical 2-3V CLINICAL HISTORY: C6-C7 ACDF, C6 FX COMPARISON STUDY: None FLUOROSCOPY TIME: 11 seconds. NUMBER OF FLUOROSCOPIC IMAGES: 2 FINDINGS: 2 intraoperative fluoroscopic spot images reveal postsurgical changes of anterior cervical discectomy and fusion at the C6-7 level. IMPRESSION: Postsurgical changes at the C6-7 level. Electronically signed by: Brendan Martins M.D. 12/01/2018 9:22 AM
[2018-12-01] MEDS: fentaNYL citrate 100 MCG/2 ML VIAL IV PRN ×2 (09:27→09:36)
[2018-12-01] MEDS ORDERED: HYDROmorphone INJ 1 MG/ML SYRINGE ONE ×2 (09:46→10:09)
[2018-12-01] MEDS: HYDROmorphone INJ 0.5 MG/0.5 ML SYR IV PRN ×10 (09:47→21:39)
--- NOTE | 2018-12-01 10:56 | Anesthesiology Progress Note ---
Date of Service December 01, 2018 Anesthesia Post Procedure Vital Signs Vital Signs: Temp Pulse Pulse Resp BP Pulse Ox 12/01/18 10:46 97.3 F L 12/01/18 10:40 91 H 12 134/88 96 12/01/18 10:30 90 14 137/84 95 12/01/18 10:20 78 14 141/92 H 97 12/01/18 10:10 73 12 145/87 H 96 12/01/18 10:00 74 12 135/92 94 12/01/18 09:50 74 16 137/92 97 12/01/18 09:40 79 16 141/83 H 100 12/01/18 09:30 76 18 132/85 100 12/01/18 09:23 97.0 F L 90 19 132/82 100 12/01/18 06:24 98.1 F 88 18 131/85 96 Pain Intensity Left Arm: Pain Intensity: 4 Transfer of Care Handoff Completed per policy Notes Mental Status: alert / awake / arousable and participated in evaluation Patient Amnestic to Procedure: Yes Nausea / Vomiting: adequately controlled Pain: adequately controlled Airway Patency, RR, SpO2: stable & adequate BP & HR: stable & adequate Hydration State: stable & adequate Anesthetic Complications: no major complications apparent and Pt Satisfied with anesthetic care
[2018-12-01] MEDS ORDERED: RACEPINEPHRINE 2.25% NEBU SOLN 0.5 ML VIAL INH PRN (11:11)
[2018-12-01] MEDS ORDERED: NALOXONE HCL 0.4 MG/1 ML VIAL/CARP IV PRN (11:11)
[2018-12-01] MEDS ORDERED: ONDANSETRON 4 MG TAB PO PRN (11:11)
[2018-12-01] MEDS ORDERED: DO NOT ADMINISTER FLU VACCINE PRN (11:11)
[2018-12-01] MEDS ORDERED: PROMETHAZINE HCL 25 MG TAB PO PRN (11:11)
[2018-12-01] MEDS ORDERED: SCOPOLAMINE 1.5 MG TDSY TD SCH (11:11)
[2018-12-01] MEDS ORDERED: ACETAMINOPHEN 1,000 MG/100 ML VIAL IV PRN (11:11)
[2018-12-01] MEDS ORDERED: DiphenhydrAMINE HCL 50 MG/ML VIAL IV PRN (11:11)
[2018-12-01] MEDS ORDERED: MAGNESIUM HYDROXIDE SUSP 30 ML UDC PO PRN (11:11)
[2018-12-01] MEDS ORDERED: LORazepam 0.5 MG TAB PO PRN (11:11)
[2018-12-01] MEDS ORDERED: DO NOT ADMINISTER PNEUMOCOCCAL VACCINE PRN (11:11)
[2018-12-01] MEDS ORDERED: LORazepam 0.5 MG/1 ML VIAL IV PRN (11:11)
[2018-12-01] MEDS ORDERED: DEXAMETHASONE SOD PHOSPHATE 8 MG in SYRINGE 0 ML IV PRN (11:11)
[2018-12-01] MEDS: HYDROCODONE/ACETAMOPHEN 5/325MG TAB PO PRN ×3 (11:36→19:33)
[2018-12-01] MEDS: SODIUM CHLORIDE 0.9% 1000ML 1,000 ML IV SCH (12:10)
[2018-12-01] MEDS: GABAPENTIN 600 MG TAB PO SCH ×2 (12:38→20:59)
[2018-12-01] MEDS ORDERED: CARBOHYDRATES FOR HYPOGLYCEMIA PO PRN (12:39)
[2018-12-01] MEDS ORDERED: DEXTROSE 50% 50 ML SYRINGE IV PRN (12:39)
[2018-12-01] MEDS ORDERED: GLUCOSE 40% GEL 15 GM TUBE PO PRN (12:39)
[2018-12-01] MEDS ORDERED: GLUCOSE 10 TABS/TUBE PO PRN (12:39)
[2018-12-01] MEDS ORDERED: GLUCAGON FOR INJ 1 MG VIAL SQ PRN (12:39)
[2018-12-01] MEDS ORDERED: PHARMACY GLYCEMIC MGMT CONSULT STA (12:39)
--- NOTE | 2018-12-01 12:58 | Hospitalist Consultation ---
Date of Consultation December 01, 2018 Assessment & Plan (1) Status post cervical discectomy: This is a 52yo F with a PMH of DM II, COPD, h/o gastric bypass in Mar 2018, fibromyalgia, postlaminectomy syndrome, tobacco use disorder and other medical problems listed below who is POD #0 s/p C6-C7 anterior cervical discectomy with bilateral foraminotomies by Dr. Hansen. -POD #0 s/p C6-C7 anterior cervical discectomy with bilateral foraminotomies by Dr. Hansen -Pt is doing well post-operatively. Has some left sided shoulder/arm pain, which is reportedly chronic -Per ortho for pain control, wound care, anticoagulation and activities -Monitor H&H (EBL 20ml, pre-op hgb 13.6), PT/OT when appropriate (2) Diabetes mellitus, type II: A1c 6.5 in September 2018 -Hold home agents -Received 8mg IV Decadron pre-operatively -Basal/bolus insulin while admitted -BSG AC HS (3) Bronchitis: Has 3 days left to complete course of Augmentin for sinusitis/bronchitis -Symptoms improving -Complete antibiotic course (4) Hypothyroidism: Continue levothyroxine (5) Mood disorder: Resume Bupropion (6) Status post gastric bypass for obesity: H/o bypass in Mar 2018 -Continue MV and calcium-Vit D supplement DVT Ppx: SCDs PCP: Mary Day Dispo: Per primary service Patient seen in collaboration with Dr. Ruth. Please see addendum. Will be followed by Dr. Kohler for remainder of admission. Supervising Physician Co-Signing Physician Notes Patient is a 52 yr old female with history of diabetes, COPD, history of gastric bypass, fibromyalgia and other medical problems was seen and evaluated postop after having C6-C7 cervical discectomy with bilateral foraminotomies by Dr. Hansen. Patient is doing well postop. She complains of mild left shoulder pain which is chronic. Denies any chest pain, shortness of breath, dizziness, nausea, abdominal pain. On exam patient is moderately built and nourished, no apparent distress, normocephalic atraumatic, neck--surgical site in dressing, neck collar,+ drain, lungs are clear to auscultation, S1-S2, no murmur, abdomen soft nontender, grossly nonfocal neurological deficits, trace pedal edema. Patient is consulted for postop medical management. S/P cervical discectomy. Pain control, activity, DVT prophylaxis as per primary team. Monitor for postop anemia. Bowel regimen to prevent constipation. Diabetes--well-controlled. Hold p.o. medications. Agree with insulin sliding scale, basal insulin. Monitor blood glucose levels. I personally reviewed the record. Patient is interviewed and examined at bedside. Patient's care is coordinated with Katina Gold PA-C. Please refer to the documentation above for details of patient's presentation and for discussion of other issues. History of Present Illness Reason for Consultation: post op med mgmt Attending Physician: Pedro Hansen DO History of Present Illness This is a 52yo F with a PMH of DM II, COPD, h/o gastric bypass in Mar 2018, fibromyalgia, postlaminectomy syndrome, tobacco use disorder and other medical problems listed below who is POD #0 s/p C6-C7 anterior cervical discectomy with bilateral foraminotomies by Dr. Hansen. Patient feels well postoperatively. Has left shoulder and arm pain, which is chronic. Denies any numbness or paresthesias to bilateral upper extremity. Minimal surgical site pain. Tolerat ing clear liquid postoperatively without issue. Denies any fever, chills, lightheadedness, visual changes, chest pain, shortness of breath, abdominal pain, dysuria or diarrhea. Last bowel movement 2 days ago, which is normal for her. Recently tried to stop smoking but resumed a few days ago and has been smoking 3 to 5 cigarettes daily since. H/o spinal cord stimulator that has been turned back on after surgery, per nursing. Also with recent sinusitis/bronchitis who received Z-stevo without resolution of symptoms. Was then prescribed 10 day course of Augmentin and patient has 3 days remaining. PCP is Dr. Fry. Of note, patient recent admitted in September 2018 for sepsis 2/2 UTI as well as C6 vertebral fracture following fall. Was discharged to [facility] and returned home approximately 1 week ago. Allergies Allergy/AdvReac Type Severity Reaction Status Date / Time Iodinated Contrast- Oral and Allergy Unknown ANAPHYLAXIS Verified 12/01/18 06:31 IV Dye omeprazole Allergy Unknown ANAPHYLAXIS Verified 12/01/18 06:31 peanut Allergy Unknown LIPS SWELL Verified 12/01/18 06:31 FROM PEANUT SHELL DUST povidone-iodine Allergy Unknown blisters Verified 12/01/18 06:31 [From Betadine] erythromycin base AdvReac Unknown GI UPSET Verified 12/01/18 06:31 Home Medications Home Medications Medication Instructions Recorded Confirmed Type Chantix 1 mg PO BID 06/01/18 12/01/18 History qufymllnpz-mdczhfurbb-cyf-cod 1 tab PO DIRECTED PRN 06/01/18 12/01/18 History ondansetron HCl 4 mg PO Q6H PRN 06/01/18 12/01/18 History pantoprazole 40 mg PO QAM 06/01/18 12/01/18 History cyclobenzaprine 10 mg PO BID PRN 09/06/18 12/01/18 History promethazine 25 mg PO Q6H PRN 10/05/18 12/01/18 History insulin lispro [Humalog KwikPen See Rx Instructions .ROUTE .COMPLEX 10/13/18 12/01/18 History Insulin] levothyroxine [Synthroid] 100 mcg PO QAM 10/13/18 12/01/18 History Juice Plus 2 cap PO DAILY 11/08/18 12/01/18 History bupropion HCl 150 mg PO BID 11/08/18 12/01/18 History calcium carbonate-vitamin D3 1 cap PO DAILY 11/08/18 12/01/18 History [Calcium 600 + D(3)] hydrocodone-acetaminophen 0.5 tab PO Q3H PRN 11/08/18 12/01/18 History insulin glargine [Lantus Solostar 22 unit SC 1500 11/08/18 12/01/18 History U-100 Insulin] pediatric bnfwbktf-trnf-nhv 2 tab PO QAM 11/08/18 12/01/18 History [Flintstones Complete (iron)] amoxicillin-pot clavulanate 1 tab PO BID 12/01/18 12/01/18 History [Augmentin] gabapentin 600 mg PO TID 12/01/18 12/01/18 History hydrocodone-acetaminophen [[place]] 1 - 2 tab PO Q4H PRN #20 tab 12/01/18 Rx Patient History Medical History Diabetes mellitus, type II (Chronic) Hyperlipidemia (Chronic) HX. NO MEDS CURRENTLY Peripheral neuropathy (Chronic) BILATERAL FEET Depression (Chronic) Anxiety (Chronic) Hypothyroidism (Chronic) Degenerative disc disease (Chronic) Fibromyalgia (Chronic) Bronchitis (Acute) currently under treatment with Augmentin. Sinus infection (Acute) Sinus infection 11/15/18. Remained unresolved after treatment with zithromax. Notified MD 11/24/18. Given prescription for 10 day course of Augmentin. Currently taking. Falls frequently (Chronic) Foot drop (Chronic) RIGHT GERD (gastroesophageal reflux disease) (Chronic) History of esophageal stricture (Chronic) Migraine (Chronic) HX Osteoarthritis (Chronic) Peptic ulcer disease (Chronic) HX Temporomandibular joint disorder (Chronic) MILD. CLICKS BUT NEVER LOCKED. Tobacco dependence syndrome (09/29/10) Surgical History S/P insertion of spinal cord stimulator (Chronic) [facility]. Turns it off for surgery - has remote. Hx of gastric bypass (Chronic) History of breast biopsy (Chronic) MULITPLE ON BILATERAL BREASTS History of cholecystectomy (Chronic) History of esophageal dilatation (Chronic) History of laminectomy (Chronic) LUMBAR AREA X2 Hx of lumpectomy (Chronic) (-) RIGHT BREAST S/P ANSHU-BSO (Chronic) Family History Family/Other Family hx of colon cancer Father Family history of diabetes mellitus Grandmother (Maternal) Family history of diabetes mellitus Social History Preferred Language: Romanian Communication Ability: Effective Story Editor Required: No Beliefs That Will Affect Care: None marital status: Current Living Situation: Spouse and Family Other Information That Helps Us Care for You: No Feels Safe at Home: Yes Safety Concerns: Feels Safe At This Time Smoking Status: Current some day smoker Tobacco Type: cigarettes ; Cigarettes Per Day: 3-5 OCCASIONALLY ; Do You Dip or Chew Tobacco: No ; Second Hand Exposure: Yes ; Tobacco Cessation Education Requested by Patient: No Hx Alcohol Use: No Hx Substance Use: No Review of Systems Review of Systems: At least ten systems reviewed and negative except as noted in the HPI. Physical Exam Physical Exam: General Appearance: WD/WN, vitals as above, NAD, sitting up in bed, conversing easily, appears chronically ill Head: normocephalic, atraumatic Eyes: normal inspection, PERRL, conjunctivae normal, anicteric sclerae ENT: external ear and nose normal, oropharynx normal Neck: C-collar in place. Surgical dressing clean, dry, intact. OLGA drain with minimal output. Trachea midline, no thyromegaly Respiratory: normal respiratory effort, lungs clear to auscultation, no wheeze, rales, rhonchi. Normal insp/exp effort, no accessory muscle use Cardiovascular: regular rate, rhythm, no murmur, normal peripheral pulses, no BLE edema. Vessels: no JVD or carotid bruit Chest: normal inspection of chest Abdomen/GI: normal bowel sounds, soft, nontender, no hepatosplenomegaly Extremities/Musculoskelatal: no cyanosis or clubbing, extremities motor strength 5/5 Neurologic: PERRL, EOMI, accommodation nl, no face palsy, no dysarthria CN's II-XI intact bilaterally and moves all extremities. LUE 4/5 FLORECITA, RUE 5/5 FLORECITA. R foot drop (chronic) Psychiatric: A+Ox3, euthymic affect Skin: no rashes, normal color, warm/dry Results & Data Vital Signs (Past 12 Hours) Vital Signs Temp Pulse Pulse Resp BP Pulse Ox 12/01/18 12:05 36.6 C 91 H 14 109/73 98 12/01/18 11:35 90 15 129/81 98 12/01/18 11:31 93 H 16 98 12/01/18 11:05 36.8 C 92 H 15 125/78 96 12/01/18 10:46 36.3 C L 12/01/18 10:40 91 H 12 134/88 96 12/01/18 10:30 90 14 137/84 95 12/01/18 10:20 78 14 141/92 H 97 12/01/18 10:10 73 12 145/87 H 96 12/01/18 10:00 74 12 135/92 94 12/01/18 09:50 74 16 137/92 97 12/01/18 09:40 79 16 141/83 H 100 12/01/18 09:30 76 18 132/85 100 12/01/18 09:23 36.1 C L 90 19 132/82 100 12/01/18 06:24 36.7 C 88 18 131/85 96 Laboratory Results Pertinent pre-op labs (11/09/18): Hgb: 13.6 Plt: 238 Cr: 0.55 GFR: 109.4
[2018-12-01] MEDS: CYCLOBENZAPRINE HCL 10 MG TAB PO PRN (13:18)
[2018-12-01] MEDS: AMOXICILLIN/CLAVULANATE 875 MG TAB PO SCH ×2 (14:10→20:59)
[2018-12-01] MEDS: CEFAZOLIN 1000MG 1,000 MG/7.5 ML SYR IV SCH (15:39)
[2018-12-01] MEDS: CHECK SCOPOLAMINE PATCH PLACEMENT SCH (15:46)
[2018-12-01] MEDS: INSULIN ASPART 100 UNITS/ML 3 ML PEN SC SCH ×2 (17:53→20:59)
[2018-12-01] MEDS: DOCUSATE SODIUM 100 MG CAP PO SCH (20:59)
[2018-12-01] MEDS: VARENICLINE 1 MG TAB PO SCH (20:59)
[2018-12-01] MEDS: BuPROPion SR 150 MG TABCR PO SCH (20:59)
[2018-12-01] MEDS ORDERED: INSULIN GLARGINE SOLOSTAR 100 UNITS/ML 3 ML PEN SC SCH (21:00)
[2018-12-01] MEDS ORDERED: COUGH DROP (SUGAR FREE) LOZ 24 LOZ/1 BOX BUCCAL PRN (21:24)
[2018-12-01] MEDS ORDERED: COUGH DROP (SUGAR FREE) LOZ 24 LOZ/1 BOX BUCCAL ONE (21:37)
[2018-12-01] MEDS: INSULIN GLARGINE SOLOSTAR 100 UNITS/ML 3 ML PEN SC SCH (22:06)
[2018-12-02] MEDS: SODIUM CHLORIDE 0.9% 1000ML 1,000 ML IV SCH (00:24)
[2018-12-02] MEDS: CEFAZOLIN 1000MG 1,000 MG/7.5 ML SYR IV SCH ×2 (00:27→09:02)
[2018-12-02] MEDS: HYDROCODONE/ACETAMOPHEN 5/325MG TAB PO PRN ×4 (00:27→14:47)
[2018-12-02] MEDS: CHECK SCOPOLAMINE PATCH PLACEMENT SCH ×2 (00:27→09:10)
[2018-12-02] MEDS ORDERED: LEVOTHYROXINE SODIUM 100 MCG TABLET PO SCH (06:30)
[2018-12-02 06:34] LABS: Basophils # (auto) 0.01 K/uL (0-0.2); Basophils % (auto) 0.1 %; Eosinophils # (auto) 0.02 K/uL (0-0.5); Eosinophils % (auto) 0.2 %; Hematocrit (blood only) 38.8 % (37-47); Hemoglobin 12.7 g/dL (12.0-16.0); Immature Granulocytes # (auto) 0.02 K/uL (0.00-0.02); Immature Granulocytes % (auto) 0.2 %; Lymphocytes # (auto) 2.85 K/uL (1.2-3.4); Lymphocytes % (auto) 24.1 %; Mean Corpuscular Hemoglobin 28.4 pg (25-34); Mean Corpuscular Hgb Conc 32.7 g/dL (32-36); Mean Corpuscular Volume 86.8 fL (80-100); Mean Platelet Volume 11.8 fL (7.4-10.4); Monocytes # (auto) 0.54 K/uL (0.11-0.59); Monocytes % (auto) 4.6 %; Neutrophils # (auto) 8.37 K/uL (1.4-6.5); Neutrophils % (auto) 70.8 %; Platelet Count 214 K/uL (130-400); RDW Standard Deviation 44.1 fL (36.4-46.3); Red Blood Count 4.47 M/uL (4.2-5.4); White Blood Count 11.81 K/uL (4.8-10.8)
[2018-12-02] MEDS: HYDROmorphone INJ 0.5 MG/0.5 ML SYR IV PRN ×3 (07:08→16:06)
[2018-12-02 07:16] LABS: BUN Creatinine Ratio 9.2 (10-20); Calcium 8.6 mg/dl (8.5-10.1); Creatinine Clr Calc Pharmacy 141.1 ml/min; Est GFR (African American) 135.4; Est GFR (Non-African American) 116.8; Magnesium 2.1 mg/dl (1.8-2.4); Potassium 3.8 mmol/L (3.5-5.1)
[2018-12-02] MEDS: CYCLOBENZAPRINE HCL 10 MG TAB PO PRN (08:39)
--- NOTE | 2018-12-02 08:42 | Discharge Summary ---
Date of Service December 02, 2018 Admission HPI Per Admitting Provider This is a 52-year-old female that presents with chronic persistent neck and arm pain. After failing extensive course of nonoperative care she is here for surgical intervention. Principal Diagnosis Cervical spinal stenosis with radiculopathy Discharge Data Allergies Allergy/AdvReac Type Severity Reaction Status Date / Time Iodinated Contrast- Oral and Allergy Unknown ANAPHYLAXIS Verified 12/01/18 06:31 IV Dye omeprazole Allergy Unknown ANAPHYLAXIS Verified 12/01/18 06:31 peanut Allergy Unknown LIPS SWELL Verified 12/01/18 06:31 FROM PEANUT SHELL DUST povidone-iodine Allergy Unknown blisters Verified 12/01/18 06:31 [From Betadine] erythromycin base AdvReac Unknown GI UPSET Verified 12/01/18 06:31 Consultations 12/01/18 11:11 Consult Hospitalist Routine Procedures Performed Operation Date: 12/01/18 07:45 Actual Procedures p C6-C7 Anterior Cervical Discectomy and Fusion, Spinal Cord Monitoring, Application of Allograft (Not Applicable) - Pedro Hansen DO Ordered Studies 12/01/18 07:45 FL cervical 2-3V Routine FL fluoroscopy <1hr Routine Hospital Course (1) Status post cervical discectomy: Patient underwent anterior cervical discectomy and fusion tolerated as well as taken to orthopedic for postoperative postop day #1 her strength was not intact swallowing well. Patient has no hoarseness. Pain was well controlled. OLGA drain decreased probably. Subsequent discharge home. Discharge orders instructions from the chart for further review. Total Time Total Time Spent Total Time Spent (In Minutes): 20 minutes Discharge Plan Discharge Items Patient Disposition: Home - Self-Care Reason For Visit: Spinal Stenosis, Cervical Region Discharge Diagnosis: cervical stenosis Discharge Goals: Decrease discomfort Activity: Per 'Additional Instructions' section Non-emergency contact: Primary Care Provider Call non-emergency contact if: you have any medication questions Follow-up/Referrals: Irma Fry MD [Primary Care Provider] - Diet: Regular Addtl Provider Instructions: ACTIVITY RECOMMENDATIONS: SELF CARE INSTRUCTIONS AFTER THORACIC/LUMBAR FUSIONS 1. You may walk to your tolerance. It is good exercise for your legs and back. Expect some back and intermittent leg aches and pains. 2. You may perform "counter-top" level activities (make a sandwich, chriss with a project, etc.). 3. No bending or lifting of more than 10 pounds or back twisting of any nature (roll like a log when turning in bed). 4. You may ride in a car for 20-30 minutes at a time. No driving until after your first visit with your doctor. 5. Frequent changes of position and restricting sitting to 30 minutes at a time will help limit the amount of back spasms and stiffness you may experience. 6. You may discontinue the use of ambulatory aids (cane, crutches, etc.) once your strength and confidence allow. 7. You may asphalt paving superintendent the shower and let water strike your incision when you arrive home at least once daily. Do not take a tub bath, sit in a hot tub or go into a swimming pool until after your first recheck in the office. SPECIAL CARE INSTRUCTIONS: VERY IMPORTANT TO READ AND REVIEW A. Your surgical incision has been closed with a cosmetic suture under the skin that will dissolve in about 6 weeks. In 14 days, you can use a pair of clean scissors and cut the suture that is left outside of the skin at the ends of your incision. 1. The small skin tapes can be removed 7 days after surgery if they have not fallen off by that point. 2. You may keep the wound open to air as much as possible to promote healing after post-op day number 5 unless told otherwise by your doctor. 3. If you think the wound looks like it is becoming infected (redness or worsening drainage) and/or you are experiencing fever, chill or worsening back pain and muscle spasms, contact the office so that we may evaluate you as soon as possible. B. Complications are uncommon, but please contact us if you have any signs or symptoms of: 1. wound infection (fever higher than 102.5 degrees F, redness, separation of wound, drainage, or increasing pain from the incision) 2. blood clots in legs (pain, swelling, redness and warmth in legs) 3. urinary tract infection (fever higher than 102.5 degrees F, burning upon urination or increased frequency of urination) 4. nerve problems (inability to walk on your toes or heels, numbness, loss of bowel or bladder control) 5. any other symptoms that concern you C. Please call the office at if you have any concerns or questions about your operation or recovery. D. No smoking! Smoking drastically decreases the chance of a solid fusion. E. Do not take any anti-inflammatory medications (Indocin, Advil, Motrin, Aspirin, Naprosyn, etc.) as these may inhibit the chance of a solid fusion. Tylenol is okay to take for pain. MANAGING PAIN AFTER SPINAL SURGERY 1. Narcotic medication is intended for short-term use and will be provided for surgical pain. Surgical pain usually lasts for a period of 4-6 weeks. Narcotic medication includes Percocet, Vicodin, Darvocet, Tylenol #3 or Lortab. 2. Longer-term pain is more appropriately treated with non-narcotic medication such as Tylenol ES. 3. Muscle spasm is not appropriately treated with narcotics. Muscle relaxers such as Soma, Flexeril or Skelaxin can be used along with Tylenol ES. 4. Remember that we all live with some "aches and pains". This is not unusual or uncommon after an injury or as we get older. a. Back pain is expected and may include muscle spasms for 4 to 6 weeks after surgery. The pain should gradually improve. If the pain worsens for no apparent reason, please contact the office. b. Intermittent leg pain may also be experienced and should not be concerned about unless it worsens for no apparent reason. If so, please contact the office. 5. We will provide appropriate medication within the normal guidelines of their prescribed use. We will also be very cautious and aware of potential abuse and extended duration of patients' medication needs. a. Pain medications are for your comfort and to assist with sleep and rest so that the tissue can heal. They are not provided in order to return to normal activity and should not be used through the day. To do so or worsening pain at night can result from ongoing tissue damage and development of tolerance to the prescribed medicine. 6. Please allow 2-3 days to process refills. Prescriptions will not be mailed but must be picked up at the office. FOLLOW UP VISIT: Keep your scheduled follow-up appointment. Any questions, please call the office at . Prescriptions: New hydrocodone-acetaminophen [[place]] 5-325 mg Tablet 1 - 2 tab PO Q4H PRN (Reason: pain) Qty: 20 RF: 0 Continued promethazine 25 mg Tablet 25 mg PO Q6H PRN (Reason: Nausea) RF: 0 levothyroxine [Synthroid] 100 mcg tablet 100 mcg PO QAM RF: 0 insulin lispro [Humalog KwikPen Insulin] 100 unit/mL insulin pen See Rx Instructions .ROUTE .COMPLEX RF: 0 bupropion HCl 150 mg Tablet Sustained-Release 12 Hr 150 mg PO BID RF: 0 hydrocodone-acetaminophen 10-325 mg Tablet 0.5 tab PO Q3H PRN (Reason: Pain) RF: 0 Flintstones Complete (iron) tablet,chewable 2 tab PO QAM RF: 0 Lantus Solostar U-100 Insulin 100 unit/mL (3 mL) insulin pen 22 unit SC 1500 RF: 0 Calcium 600 + D(3) 600 mg calcium- 200 unit Capsule 1 cap PO DAILY RF: 0 Juice Plus 2 cap PO DAILY RF: 0 gabapentin 600 mg Tablet 600 mg PO TID RF: 0 amoxicillin-pot clavulanate [Augmentin] 875-125 mg Tablet 1 tab PO BID RF: 0 pantoprazole 40 mg tablet,delayed release (DR/EC) 40 mg PO QAM RF: 0 Chantix 1 mg Tablet 1 mg PO BID RF: 0 gywnuyotrh-dgjuzuivrj-kyt-cod [id number] mg capsule 1 tab PO DIRECTED PRN (Reason: Headache) RF: 0 ondansetron HCl 4 mg tablet 4 mg PO Q6H PRN (Reason: Nausea) RF: 0 cyclobenzaprine 10 mg tablet 10 mg PO BID PRN (Reason: Muscle Spasm) RF: 0 Stand-Alone Forms: [facility] Discharge Orders: Discharge Order (Routine); Ordered 12/02/18 Ordered By: Pedro Hansen Admission Data Admit Date/Time: 12/01/18 09:14 Attending Provider: Pedro Hansen Admit Provider: Pedro Hansen Primary Care Provider: Irma Fry Other Providers: Liban Kohler Service: Surgical Services
[2018-12-02] MEDS ORDERED: [UNRECOGNIZED DRUG - OTHER] PO SCH (09:00)
[2018-12-02] MEDS ORDERED: PANTOprazole 40 MG TAB PO SCH (09:00)
[2018-12-02] MEDS ORDERED: FLINTSTONES COMPLETE CHEWABLE TAB PO SCH (09:00)
[2018-12-02] MEDS ORDERED: CALCIUM 600MG + VIT D 400 IU TAB PO SCH (09:00)
[2018-12-02] MEDS: AMOXICILLIN/CLAVULANATE 875 MG TAB PO SCH (09:11)
[2018-12-02] MEDS: GABAPENTIN 600 MG TAB PO SCH ×2 (09:11→13:11)
[2018-12-02] MEDS: BuPROPion SR 150 MG TABCR PO SCH (09:12)
[2018-12-02] MEDS: VARENICLINE 1 MG TAB PO SCH (09:12)
[2018-12-02] MEDS: DOCUSATE SODIUM 100 MG CAP PO SCH (09:13)
[2018-12-02] MEDS: INSULIN GLARGINE SOLOSTAR 100 UNITS/ML 3 ML PEN SC SCH (09:13)
[2018-12-02] MEDS: INSULIN ASPART 100 UNITS/ML 3 ML PEN SC SCH ×2 (09:49→13:13)
[2018-12-02 12:08] VITALS: TEMP 97.7
[2018-12-02 15:03] VITALS: BP 112/75; O2SAT 98
[2018-12-02 15:58] VITALS: PULSE 72
[2018-12-03] MEDS ORDERED: POLYETHYLENE (MIRALAX) 17 GM PACK PO PRN (09:13)
== END 2018-12-02 16:53 | disposition home or self-care (01) | DRG 473 ==
LOC: ASU 05:54 → 3E 09:14

== ENCOUNTER 2019-05-05 02:33 | Inpatient (IN) ==
[2019-05-05] MEDS ORDERED: methylPREDNISolone 125 MG/2 ML VIAL IV STA (02:40)
[2019-05-05] MEDS ORDERED: DiphenhydrAMINE HCL 50 MG/ML VIAL IV STA (02:40)
[2019-05-05] MEDS ORDERED: SODIUM CHLORIDE 0.9% 1000ML 1,000 ML IV ONE (02:41)
[2019-05-05] MEDS ORDERED: DiphenhydrAMINE HCL 50 MG/ML VIAL ONE (02:42)
[2019-05-05] MEDS ORDERED: methylPREDNISolone 125 MG/2 ML VIAL ONE (02:42)
[2019-05-05] MEDS ORDERED: MAGNESIUM SULFATE / D5W 1 GM/100 ML BAG IV ONE (02:47)
[2019-05-05] MEDS ORDERED: OPTIRAY 320 125ml IV PRN (02:55)
[2019-05-05] MEDS ORDERED: ACETAMINOPHEN 1,000 MG/100 ML VIAL IV STA (02:59)
[2019-05-05 03:01] LABS: Hematocrit (blood only) 47.3 % (37-47); Hemoglobin 15.9 g/dL (12.0-16.0); Mean Corpuscular Hemoglobin 30.3 pg (25-34); Mean Corpuscular Hgb Conc 33.6 g/dL (32-36); Mean Corpuscular Volume 90.3 fL (80-100); Mean Platelet Volume 12.2 fL (7.4-10.4); Platelet Count 244 K/uL (130-400); RDW Standard Deviation 49.8 fL (36.4-46.3); Red Blood Count 5.24 M/uL (4.2-5.4); White Blood Count 9.17 K/uL (4.8-10.8)
[2019-05-05 03:13] LABS: Partial Thromboplastin Time 25.8 Seconds (21.0-31.0); Prothrombin Time 10.6 Seconds (9.0-12.0)
--- NOTE | 2019-05-05 03:13 | Emergency Department Note ---
History of Present Illness General Chief complaint: Stroke Alert Stated complaint: STROKE ALRT Source: patient, EMS, RN notes reviewed and old records reviewed Mode of arrival: EMS Limitations: no limitations History of Present Illness Provider complaint: slurred speach, headache Onset (ago): hour(s) 2 Location: head Severity: moderate Pain Consistency: + constant Current Pain Intensity: 5 Quality: + aching Relieved By: + none Exacerbated By: + none Associated symptoms: + denies other symptoms Treatments prior to arrival: none This is a 53-year-old male who was watching TV with her family at midnight tonight when she suddenly experienced sudden onset of severe headache right- sided weakness slurred speech and facial droop. EMS was summoned. The patient reports she has chronic neck pain due to a cervical discectomy. Patient does smoke and is a diabetic. She also reports plaques on her brains. Patient reports she has never had a headache like this before. Home Medications Home Medications Medication Instructions Recorded Confirmed Type Chantix 1 mg PO BID 06/01/18 05/05/19 History ondansetron HCl 4 mg PO Q6H PRN 06/01/18 05/05/19 History pantoprazole 40 mg PO QAM 06/01/18 05/05/19 History cyclobenzaprine 10 mg PO BID PRN 09/06/18 05/05/19 History levothyroxine [Synthroid] 100 mcg PO QAM 10/13/18 05/05/19 History Calcium 600 + D(3) 1 cap PO DAILY 11/08/18 05/05/19 History Flintstones Complete (iron) 2 tab PO QAM 11/08/18 05/05/19 History Juice Plus 2 cap PO DAILY 11/08/18 05/05/19 History bupropion HCl 150 mg PO BID 11/08/18 05/05/19 History hydrocodone-acetaminophen 1 tab PO Q6H PRN 11/08/18 05/05/19 History Trulicity 0.75 mg SUBCUT DIRECTED 05/05/19 05/05/19 History aspirin [Ecotrin Low Strength] 81 mg PO QAM 21 Days #21 tab 05/05/19 Rx atorvastatin 40 mg PO QAM 30 Days #30 tab 05/05/19 Rx clopidogrel 75 mg PO QAM 30 Days #30 tab 05/05/19 Rx duloxetine 20 mg PO DIRECTED 05/05/19 05/05/19 History gabapentin 400 mg PO TID 30 Days #90 cap 05/05/19 Rx rosuvastatin 5 mg PO DAILY 05/05/19 05/05/19 History Allergies Allergy/AdvReac Type Severity Reaction Status Date / Time Iodinated Contrast Media Allergy Unknown ANAPHYLAXIS Verified 12/03/18 13:03 omeprazole Allergy Unknown ANAPHYLAXIS Verified 12/03/18 13:03 peanut Allergy Unknown LIPS SWELL Verified 12/03/18 13:03 FROM PEANUT SHELL DUST povidone-iodine Allergy Unknown blisters Verified 12/03/18 13:03 [From Betadine] erythromycin base AdvReac Unknown GI UPSET Verified 12/03/18 13:03 Past Med/Surg History Medical History Anxiety (Chronic) Bronchitis (Acute) currently under treatment with Augmentin. Degenerative disc disease (Chronic) Depression (Chronic) Diabetes mellitus, type II (Chronic) Falls frequently (Chronic) Fibromyalgia (Chronic) Foot drop (Chronic) RIGHT GERD (gastroesophageal reflux disease) (Chronic) History of esophageal stricture (Chronic) Hyperlipidemia (Chronic) HX. NO MEDS CURRENTLY Hypothyroidism (Chronic) Migraine (Chronic) HX Osteoarthritis (Chronic) Peptic ulcer disease (Chronic) HX Peripheral neuropathy (Chronic) BILATERAL FEET Sinus infection (Acute) Sinus infection 11/15/18. Remained unresolved after treatment with zithromax. Notified MD 11/24/18. Given prescription for 10 day course of Augmentin. C urrently taking. Temporomandibular joint disorder (Chronic) MILD. CLICKS BUT NEVER LOCKED. Tobacco dependence syndrome (09/29/10) Surgical History History of breast biopsy (Chronic) MULITPLE ON BILATERAL BREASTS History of cholecystectomy (Chronic) History of esophageal dilatation (Chronic) History of laminectomy (Chronic) LUMBAR AREA X2 Hx of gastric bypass (Chronic) Hx of lumpectomy (Chronic) (-) RIGHT BREAST S/P insertion of spinal cord stimulator (Chronic) [facility]. Turns it off for surgery - has remote. S/P ANSHU-BSO (Chronic) Family History Family/Other Family hx of colon cancer Father Family history of diabetes mellitus Grandmother (Maternal) Family history of diabetes mellitus Social History Preferred Language: Kosovan Communication Ability: Effective Rayon Tester Required: No Beliefs That Will Affect Care: None marital status: Current Living Situation: Family Other Information That Helps Us Care for You: No Feels Safe at Home: Yes Safety Concerns: Feels Safe At This Time Smoking Status: Current every day smoker Tobacco Type: cigarettes ; Cigarettes Per Day: 3-5 OCCASIONALLY ; Second Hand Exposure: Yes ; Hx Alcohol Use: No Hx Substance Use: No Review of Systems A total of 10 systems reviewed and were otherwise negative Physical Exam Vital Signs Vital Signs - 24 hr 05/05/19 02:45 Pulse Rate 78 Respiratory Rate 18 Respiratory Effort / Characteristics Non-Labored Respiratory Depth Normal Blood Pressure 153/99 H Blood Pressure Mean 117 Pulse Oximetry 96 Oxygen Delivery Method Room Air Sepsis Recent Fever Within 48 Hours No Sepsis Action Taken by Nursing No Action Required GENERAL: Patient is a healthy-appearing well-nourished female HEAD: Normocephalic atraumatic EYES: Ocular movements intact pupils equal and react to light OROPHARYNX mucous membranes are moist no exudates present no erythema or edema present NECK: Supple no nuchal rigidity CHEST: Good equal expansion LUNGS: Clear and equal to auscultation CARDIAC: Normal S1 and S2 ABDOMEN: Soft nontender no guarding BACK: No CVA tenderness EXTREMITIES: No pain upon palpation normal muscle strength in all groups no clubbing cyanosis or edema NEURO: Patient is following commands is answering questions appropriately. Alert and oriented x3 Cranial Nerves 2-12 grossly intact Course Administered Medications Discontinued Medications Hydrocodone Bitart/Acetaminophen ([place] 10/325) 1 tab PO Q6H PRN PRN Reason: Pain Stop: 05/19/19 05:34 Last Admin: 05/05/19 09:27 Dose: 1 tab Documented by: [id number] Hydrocodone Bitart/Acetaminophen ([place] 10/325) 0.5 tab PO Q3H PRN PRN Reason: moderate to severe pain Stop: 05/19/19 10:06 Last Admin: 05/05/19 17:54 Dose: 0.5 tab Documented by: [id number] Admin: 05/05/19 14:37 Dose: 0.5 tab Documented by: [id number] Aspirin (Aspirin) 324 mg PO NOW STA Stop: 05/05/19 03:22 Last Admin: 05/05/19 03:34 Dose: 243 mg Documented by: [id number] Aspirin (Ecotrin Ectab) 81 mg PO QAM MEGHNA Stop: 06/04/19 08:59 Last Admin: 05/05/19 08:30 Dose: 81 mg Documented by: [id number] Bupropion HCl (Wellbutrin-Sr) 150 mg PO BID MEGHNA Stop: 06/04/19 08:59 Last Admin: 05/05/19 08:30 Dose: 150 mg Documented by: [id number] Clopidogrel Bisulfate (Plavix) 75 mg PO NOW ONE Stop: 05/05/19 16:56 Last Admin: 05/05/19 17:19 Dose: 75 mg Documented by: [id number] Diphenhydramine HCl (Benadryl) 50 mg IV NOW STA Stop: 05/05/19 02:41 Last Admin: 05/05/19 03:21 Dose: 50 mg Documented by: [id number] Diphenhydramine HCl (Benadryl) Confirm Administered Dose 50 mg .ROUTE .ST-MED ONE Stop: 05/05/19 02:43 Last Admin: 05/05/19 03:21 Dose: Not Given Documented by: [id number] Duloxetine HCl (Cymbalta) 20 mg PO DAILY [facility] Stop: 06/04/19 08:59 Last Admin: 05/05/19 08:29 Dose: 20 mg Documented by: [id number] Gabapentin (Neurontin) 600 mg PO TID MEGHNA Stop: 06/04/19 08:59 Last Admin: 05/05/19 08:30 Dose: 600 mg Documented by: [id number] Gabapentin (Neurontin) 400 mg PO TID MEGHNA Stop: 06/04/19 13:59 Last Admin: 05/05/19 11:59 Dose: 400 mg Documented by: [id number] Ranitidine HCl 50 mg/ Dextrose 102 mls @ 200 mls/hr IV NOW STA Stop: 05/05/19 03:11 Last Infusion: 05/05/19 03:55 Dose: 0 mls/hr Documented by: [id number] Admin: 05/05/19 03:21 Dose: 200 mls/hr Documented by: [id number] Sodium Chloride (Nss 1000ml) 1,000 mls @ 999 mls/hr IV .Q1H1M ONE Stop: 05/05/19 03:41 Last Infusion: 05/05/19 04:12 Dose: 0 mls/hr Documented by: [id number] Admin: 05/05/19 03:21 Dose: 999 mls/hr Documented by: [id number] Magnesium Sulfate/Dextrose (Magnesium Sulfate / D5w) 1 gm in 100 mls @ 100 mls/hr IV ONE ONE Stop: 05/05/19 03:46 Last Infusion: 05/05/19 04:12 Dose: 0 mls/hr Documented by: [id number] Admin: 05/05/19 03:21 Dose: 100 mls/hr Documented by: [id number] Acetaminophen (Ofirmev) 1,000 mg in 100 mls @ 400 mls/hr IV NOW STA Stop: 05/05/19 03:13 Last Infusion: 05/05/19 03:55 Dose: 0 mls/hr Documented by: [id number] Admin: 05/05/19 03:37 Dose: 400 mls/hr Documented by: [id number] Sodium Chloride (Nss 1000ml) 1,000 mls @ 100 mls/hr IV .Q10H MEGHNA Stop: 06/04/19 05:34 Last Infusion: 05/05/19 10:33 Dose: 0 mls/hr Documented by: [id number] Admin: 05/05/19 06:34 Dose: 100 mls/hr Documented by: [id number] Insulin Aspart (Novolog Flexpen) 0 units SC ACHS MEGHNA Stop: 06/04/19 07:29 Last Admin: 05/05/19 16:58 Dose: Not Given Documented by: [id number] Cosigned by: [id number] Admin: 05/05/19 11:55 Dose: 4 units Documented by: [id number] Cosigned by: [id number] Admin: 05/05/19 11:16 Dose: Not Given Documented by: [id number] Cosigned by: [id number] Admin: 05/05/19 08:30 Dose: Not Given Documented by: [id number] Cosigned by: [id number] Ioversol (Optiray 320 125ml) 125 ml IV ONCE PRN PRN Reason: Interaction Checking Stop: 05/09/19 02:54 Last Admin: 05/05/19 02:55 Dose: 119 ml Documented by: [id number] Ketorolac Tromethamine (Toradol) 30 mg IV NOW STA Stop: 05/05/19 03:41 Last Admin: 05/05/19 04:10 Dose: 30 mg Documented by: [id number] Levothyroxine Sodium (Synthroid) 100 mcg PO DAILYBB MEGHNA Stop: 06/04/19 06:29 Last Admin: 05/05/19 06:34 Dose: 100 mcg Documented by: [id number] Methylprednisolone (Solumedrol) 125 mg IV NOW STA Stop: 05/05/19 02:41 Last Admin: 05/05/19 03:21 Dose: 125 mg Documented by: [id number] Methylprednisolone (Solumedrol) Confirm Administered Dose 125 mg .ROUTE .STK-MED ONE Stop: 05/05/19 02:43 Last Admin: 05/05/19 03:21 Dose: Not Given Documented by: [id number] Multivitamins/Folic Acid/Vitamin C (Flintstones Complete Chew Tab) 2 tab PO QAM MEGHNA Stop: 06/04/19 08:59 Last Admin: 05/05/19 08:30 Dose: 2 tab Documented by: [id number] Multivitamins/Minerals (Caltrate Plus) 1 tab PO DAILY MEGHNA Stop: 06/04/19 08:59 Last Admin: 05/05/19 08:29 Dose: 1 tab Documented by: [id number] Pantoprazole Sodium (Protonix) 40 mg PO QAM MEGHNA Stop: 06/04/19 08:59 Last Admin: 05/05/19 08:30 Dose: 40 mg Documented by: [id number] Potassium Chloride (Klor-Con M20) 40 meq PO NOW STA Stop: 05/05/19 03:29 Last Admin: 05/05/19 03:34 Dose: 40 meq Documented by: [id number] Rosuvastatin Calcium (Crestor) 5 mg PO DAILY MEGHNA Stop: 06/04/19 08:59 Last Admin: 05/05/19 08:29 Dose: 5 mg Documented by: [id number] Varenicline (Chantix) 1 mg PO BID MEGHNA Stop: 06/04/19 08:59 Last Admin: 05/05/19 08:30 Dose: 1 mg Documented by: [id number] Critical Care Time I have personally spent greater than 30 minutes of critical care time in the direct management of this patient. This includes bedside care, interpretation of diagnostic studies, and testing, discussion with consultants, patient, and family members, and other required patient management activities. This 30 minutes is in excess of all separately billable procedures. Medical Decision Making Differential Diagnosis My differential diagnosis includes but is not limited to CVA, TIA, intracranial hemorrhage, hypertensive urgency, atypical migraine Medical Records Attestation: I reviewed the patient's medical records. Home Medications Current Medication List: was personally reviewed by me Laboratory Data Attestation: I reviewed the patient's lab results. Result diagrams: 05/05/19 02:30 05/05/19 02:30 Lab Results 05/05/19 05/05/19 05/05/19 Range/Units 02:30 02:30 02:30 WBC 9.17 (4.8-10.8) K/uL RBC 5.24 (4.2-5.4) M/uL Hgb 15.9 (12.0-16.0) g/dL Hct 47.3 H (37-47) % MCV 90.3 (80-100) fL MCH 30.3 (25-34) pg MCHC 33.6 (32-36) g/dL RDW Std Deviation 49.8 H (36.4-46.3) fL RDW Coeff of Lionel 15.0 H (11.5-14.5) % Plt Count 244 (130-400) K/uL MPV 12.2 H (7.4-10.4) fL Immature Gran % (Auto) 0.0 % Neut % (Auto) 34.6 % Lymph % (Auto) 56.2 % [place] % (Auto) 5.0 % Eos % (Auto) 4.0 % Baso % (Auto) 0.2 % Immature Gran # (Auto) 0.00 (0.00-0.02) K/uL Neut # (Auto) 3.17 (1.4-6.5) K/uL Lymph # (Auto) 5.15 H (1.2-3.4) K/uL [place] # (Auto) 0.46 (0.11-0.59) K/uL Eos # (Auto) 0.37 (0-0.5) K/uL Baso # (Auto) 0.02 (0-0.2) K/uL RBC Morphology Unremarkable PT 10.6 (9.0-12.0) Seconds INR 1.0 (0.9-1.1) APTT 25.8 (21.0-31.0) Seconds PTT Ratio 1.0 Sodium 139 (136-145) mmol/L Potassium 3.3 L (3.5-5.1) mmol/L Chloride 104 (98-107) mmol/L Carbon Dioxide 30 (21-32) mmol/L Anion Gap 5.0 (3-11) BUN 7 (7-18) mg/dl Creatinine 0.81 (0.6-1.2) mg/dl Est Cr Clr Drug Dosing 71.0 ml/min Est GFR ( Amer) 97.5 Est GFR (Non-Af Amer) 84.1 BUN/Creatinine Ratio 9.1 L (10-20) Glucose 96 (70-99) mg/dl Estimat Average Glucose mg/dl Hemoglobin A1c (4.5-5.6) % Calcium 8.9 (8.5-10.1) mg/dl Magnesium 2.1 (1.8-2.4) mg/dl Total Bilirubin 0.4 (0.2-1) mg/dl AST 19 (15-37) U/L ALT 16 (12-78) U/L Alkaline Phosphatase 138 H (45-117) U/L Troponin I < 0.015 (0-0.045) ng/ml Total Protein 6.9 (6.4-8.2) gm/dl Albumin 3.1 L (3.4-5.0) gm/dl Globulin 3.8 (2.5-4.0) gm/dl Albumin/Globulin Ratio 0.8 L (0.9-2) Urine Color Urine Appearance (Clear) Urine pH (4.5-7.5) Ur Specific [place] (1.000-1.030) Urine Protein (Negative) Urine Glucose (UA) (Negative) Urine Ketones (Negative) Urine Blood (Negative) Urine Nitrite (Negative) Urine Bilirubin (Negative) Urine Urobilinogen (Negative) Ur Leukocyte Esterase (Negative) Urine WBC (Auto) (0-5) /hpf Urine RBC (Auto) (0-4) /hpf U Hyaline Cast (Auto) (0-5) /lpf U Epithel Cells (Auto) (0-5) /lpf Urine Bacteria (Auto) (Negative) Urine Opiates Screen (Neg) Ur Methadone, Qual (Neg) Urine Barbiturates (Neg) Ur Phencyclidine (PCP) (Neg) U Amphetamin/Meth Scrn (Neg) MDMA (Ecstasy) Screen (Neg) U Benzodiazepines Scrn (Neg) Ur Cocaine Metabolite (Neg) U Marijuana (THC) Screen (Neg) 05/05/19 05/05/19 05/05/19 Range/Units 02:30 03:50 03:50 WBC (4.8-10.8) K/uL RBC (4.2-5.4) M/uL Hgb (12.0-16.0) g/dL Hct (37-47) % MCV (80-100) fL MCH (25-34) pg MCHC (32-36) g/dL RDW Std Deviation (36.4-46.3) fL RDW Coeff of Lionel (11.5-14.5) % Plt Count (130-400) K/uL MPV (7.4-10.4) fL Immature Gran % (Auto) % Neut % (Auto) % Lymph % (Auto) % [place] % (Auto) % Eos % (Auto) % Baso % (Auto) % Immature Gran # (Auto) (0.00-0.02) K/uL Neut # (Auto) (1.4-6.5) K/uL Lymph # (Auto) (1.2-3.4) K/uL [place] # (Auto) (0.11-0.59) K/uL Eos # (Auto) (0-0.5) K/uL Baso # (Auto) (0-0.2) K/uL RBC Morphology PT (9.0-12.0) Seconds INR (0.9-1.1) APTT (21.0-31.0) Seconds PTT Ratio Sodium (136-145) mmol/L Potassium (3.5-5.1) mmol/L Chloride (98-107) mmol/L Carbon Dioxide (21-32) mmol/L Anion Gap (3-11) BUN (7-18) mg/dl Creatinine (0.6-1.2) mg/dl Est Cr Clr Drug Dosing ml/min Est GFR ( Amer) Est GFR (Non-Af Amer) BUN/Creatinine Ratio (10-20) Glucose (70-99) mg/dl Estimat Average Glucose 120 mg/dl Hemoglobin A1c 5.8 H (4.5-5.6) % Calcium (8.5-10.1) mg/dl Magnesium (1.8-2.4) mg/dl Total Bilirubin (0.2-1) mg/dl AST (15-37) U/L ALT (12-78) U/L Alkaline Phosphatase (45-117) U/L Troponin I (0-0.045) ng/ml Total Protein (6.4-8.2) gm/dl Albumin (3.4-5.0) gm/dl Globulin (2.5-4.0) gm/dl Albumin/Globulin Ratio (0.9-2) Urine Color Yellow Urine Appearance Clear (Clear) Urine pH 6.5 (4.5-7.5) Ur Specific [place] 1.015 (1.000-1.030) Urine Protein Negative (Negative) Urine Glucose (UA) Negative (Negative) Urine Ketones Negative (Negative) Urine Blood Negative (Negative) Urine Nitrite Negative (Negative) Urine Bilirubin Negative (Negative) Urine Urobilinogen Negative (Negative) Ur Leukocyte Esterase Trace H (Negative) Urine WBC (Auto) 5-10 H (0-5) /hpf Urine RBC (Auto) 0-4 (0-4) /hpf U Hyaline Cast (Auto) 0 (0-5) /lpf U Epithel Cells (Auto) 0-5 (0-5) /lpf Urine Bacteria (Auto) Negative (Negative) Urine Opiates Screen Pos H (Neg) Ur Methadone, Qual Neg (Neg) Urine Barbiturates Pos H (Neg) Ur Phencyclidine (PCP) Neg (Neg) U Amphetamin/Meth Scrn Neg (Neg) MDMA (Ecstasy) Screen Neg (Neg) U Benzodiazepines Scrn Neg (Neg) Ur Cocaine Metabolite Neg (Neg) U Marijuana (THC) Screen Neg (Neg) Imaging Data Attestation: I personally reviewed and interpreted this imaging study as follows: My Impression: 1 view of the chest was interpreted by me shows no evidence of pneumonia congestion or pneumothorax. Radiologist's Impression: CTA of the head: Comparison: None Impression: No flow-limiting stenosis, occlusion or aneurysm in the anterior p osterior circulation allowing for venous containment which limits assessment for small distal branch vessel occlusion. Incidental findings: Patent dural venous sinuses CTA of the neck: Comparison: None Impression: No stenosis, dissection or aneurysm. Incidental findin mm low density peripherally enhancing focus within the midline nose of pharynx could represent a large Tornwaldt cyst or retention cyst. Neoplasm not entirely excluded. Not emergent/outpatient correlation with direct inspection or contrast-enhanced MRI of the neck could further assess as clinically indicated. Central bronchial wall thickening and atherosclerosis. Small thyroid. Spondylosis status post C6-C7 ACDF CT of the head: Comparison: CT of the head 10/24/2018 Impression: No midline shift hemorrhage or CT evidence of acute territorial infarction. ECG Data Attestation: I personally reviewed and interpreted this ECG as follows: Indication: + altered mental status Rate (beats per minute): 80 Rhythm: + normal sinus ECG Intervals/blocks: + Normal QT-c ECG [place]: + Normal ECG ST segments: + Normal ST segments; no ST depression and no ST elevation Blood Pressure Blood Pressure Findings: Elevated blood pressure Blood Pressure Disposition: elevated BP felt to be situational MDM Narrative This is a 53-year-old female who presents to the emergency department complaining of right-sided weakness word aphasia and facial droop. Upon arrival to the emergency department a stroke alert was immediately initiated. I did consider giving this patient TPA and TPA was mixed up. She was sent for a CAT scan of the head as well as CTA of the head and neck. The patient is allergic to iodinated contrast media. For this reason and using shared medical decision making with the patient she was pretreated with Solu-Medrol Zantac and Benadryl. The patient then had a CTA of the head and neck without any reaction. She was placed in B1 and was evaluated by the stroke neurologist. She was given magnesium as well as aspirin and Tylenol here. It was felt that the patient was not a candidate for TPA due to the waxing and waning of her symptoms. I did discuss her case with the hospitalist service who agreed to meet the patient. Impression & Plan Arm weakness Discharge Plan Visit Data *Final* Discharge Date/Time: 05/05/19 04:52 Chief Complaint: Stroke Alert Stated Complaint: STROKE ALRT ED Provider: Lei Calix Discharge Problem: Arm weakness Patient Disposition: Admitted As Inpatient Condition: Good Discharge Instructions Interventions: ED Discharge Assessment Last Done: 05/05/19 04:52
[2019-05-05 03:18] LABS: Alanine Aminotransferase 16 U/L (12-78); Albumin Level 3.1 gm/dl (3.4-5.0); Aspartate Aminotransferase 19 U/L (15-37); BUN Creatinine Ratio 9.1 (10-20); Blood Urea Nitrogen 7 mg/dl (7-18); Calcium 8.9 mg/dl (8.5-10.1); Carbon Dioxide 30 mmol/L (21-32); Chloride 104 mmol/L (98-107); Est GFR (African American) 97.5; Est GFR (Non-African American) 84.1; Glucose 96 mg/dl (70-99); Magnesium 2.1 mg/dl (1.8-2.4); Potassium 3.3 mmol/L (3.5-5.1); Sodium 139 mmol/L (136-145)
[2019-05-05] MEDS ORDERED: ASPIRIN CHEW 324 MG PO STA (03:21)
[2019-05-05 03:23] LABS: Albumin Globulin Ratio 0.8 (0.9-2); Alkaline Phosphatase 138 U/L (45-117); Bilirubin,Total 0.4 mg/dl (0.2-1); Globulin 3.8 gm/dl (2.5-4.0); Total Protein 6.9 gm/dl (6.4-8.2); Troponin I < 0.015 ng/ml (0-0.045)
[2019-05-05] MEDS ORDERED: POTASSIUM CHLORIDE 20 MEQ TABCR PO STA (03:28)
[2019-05-05 03:35] LABS: Basophils # (auto) 0.02 K/uL (0-0.2); Basophils % (auto) 0.2 %; Eosinophils # (auto) 0.37 K/uL (0-0.5); Lymphocytes # (auto) 5.15 K/uL (1.2-3.4); Lymphocytes % (auto) 56.2 %; Monocytes # (auto) 0.46 K/uL (0.11-0.59); Neutrophils # (auto) 3.17 K/uL (1.4-6.5); Neutrophils % (auto) 34.6 %; RBC Morphology Unremarkable
[2019-05-05] MEDS ORDERED: KETOROLAC 30 MG/ML VIAL IV STA (03:40)
[2019-05-05 03:58] LABS: Appearance Urine Clear (Clear); Bilirubin Urine Negative (Negative); Blood Urine Negative (Negative); Color Urine Yellow; Glucose Urine UA Negative (Negative); Ketones Urine Negative (Negative); Leukocyte Esterase Urine Trace (Negative); Nitrite Urine Negative (Negative); Protein Urine Negative (Negative); Specific Gravity Urine 1.015 (1.000-1.030); Urobilinogen Urine Negative (Negative); pH Urine 6.5 (4.5-7.5)
[2019-05-05 04:17] LABS: Amphetamines+Metham, Urine Neg (Neg); Barbiturates, Urine Pos (Neg); Benzodiazepine, Urine Neg (Neg); Cocaine, Urine Neg (Neg); MDMA (Ecstacy), Urine Neg (Neg); Methadone, Urine Neg (Neg); Opiate, Urine Pos (Neg); Phencyclidine, Urine Neg (Neg)
[2019-05-05 04:19] LABS: Bacteria Urine Automated Negative (Negative); Cast Urine Automated 0 /lpf (0-5); Epithelial Cell Urine Auto 0-5 /lpf (0-5); RBC Urine Automated 0-4 /hpf (0-4)
[2019-05-05] MEDS ORDERED: PHARMACIST DISCHARGE MED REC CONSULT PRN (05:35)
[2019-05-05] MEDS ORDERED: SODIUM CHLORIDE 0.9% 1000ML 1,000 ML IV SCH (05:35)
[2019-05-05] MEDS ORDERED: ACETAMINOPHEN 325 MG TAB PO PRN ×2 (05:35→09:39)
[2019-05-05] MEDS ORDERED: POLYETHYLENE (MIRALAX) 17 GM PACK PO PRN (05:35)
[2019-05-05] MEDS ORDERED: HYDROCODONE/ACETAMINOPHEN 10/325 TAB PO PRN (05:35)
[2019-05-05] MEDS ORDERED: ONDANSETRON INJ 2 MG/ML 2 ML VIAL IV PRN (05:35)
[2019-05-05] MEDS ORDERED: CYCLOBENZAPRINE HCL 10 MG TAB PO PRN (05:42)
[2019-05-05] MEDS ORDERED: LEVOTHYROXINE SODIUM 100 MCG TABLET PO SCH (06:30)
--- NOTE | 2019-05-05 07:06 | CT Scan Report ---
HEAD CT NONCONTRAST CT DOSE: HISTORY: Stroke evaluation TECHNIQUE: Multiaxial CT images of the head were performed without the use of intravenous contrast. A utomated exposure control was utilized for this study. A dose lowering technique was utilized adheri ng to the principles of ALARA. Comparison: None. Findings: The paranasal sinuses and mastoid air cells are clear. The calvarium and skull base are int act. The ventricles and sulci are within normal limits. There is no mass, hematoma, midline shift, or acute infarct. Impression: No acute intracranial abnormality. ACT 112: Negative or not required by law. Electronically signed by: Tom Ba M.D. 05/05/2019 7:04 AM
--- NOTE | 2019-05-05 07:09 | Magnetic Resonance Report ---
MRI OF THE BRAIN WITHOUT IV CONTRAST CLINICAL HISTORY: Aphasia. COMPARISON STUDY: CT of the brain dated 05/05/2019. TECHNIQUE: MRI of the brain was performed utilizing various T1 and T2-weighted sequences in the axial , sagittal, and coronal planes. IV contrast was not administered for this examination. FINDINGS: Brain parenchyma: There is minimal microangiopathic change. The brain parenchyma is otherwise normal in appearance. There is no hemorrhage or mass effect. There is no restricted diffusion to suggest acu te ischemia. Owens-white matter differentiation is preserved. No extra-axial fluid collection is seen. The cerebellar tonsils are normal in configuration. Ventricles, sulci, and cisterns: Normal in configuration. Pituitary and sella: Unremarkable. Intracranial vasculature: Normal flow voids are maintained at the skull base. Orbits: The bony orbits are grossly intact. Orbital contents are normal in appearance. Sinuses and mastoids: Clear. Calvarium: Unremarkable. Cervical cord: Partially visualized cervical spinal cord is normal in morphology and signal intensity . Soft tissues: A 1.0 cm complex T2 hyperintense lesion is seen in the posterior midline nasopharynx. IMPRESSION: 1. No acute intracranial abnormality. 2. A 1.0 cm complex T2 hyperintense lesion in the posterior midline nasopharynx is again noted. 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 Consider nonemergent ENT follow-up. ACT 112: Negative or not required by law. Electronically signed by: Alvino Hadley M.D. 05/05/2019 7:08 AM
--- NOTE | 2019-05-05 07:09 | CT Scan Report ---
HEAD CTA HISTORY: Pt c/o Rt sided weakness TECHNIQUE: Multiaxial CT images of the head were performed both before and after the intravenous admi nistration of contrast to evaluate the major cerebral vessels. Maximum intensity projection images we re also obtained. A dose lowering technique was utilized adhering to the principles of ALARA. COMPARISON: Head CT 05/05/2019. FINDINGS: There is no mass, hematoma, midline shift, or acute infarct. Visualized intracranial dietetic intern al carotid arteries, distal vertebral arteries, and basilar artery are widely patent. There is no sig nificant stenosis, occlusion, or aneurysm seen within the bilateral ACAs, MCAs, or pole lift operator. A 9 mm irreg ular peripheral enhancing cystic focus seen within the midline of the adenoids. IMPRESSION: No significant stenosis, occlusion, or aneurysm within the [place]. A 9 mm irregular periphe ral enhancing cystic focus within the midline the adenoids. This favors a Tornwaldt cyst. Direct visu alization can be performed for further evaluation. ACT 112: Negative or not required by law. Electronically signed by: Tom Ba M.D. 05/05/2019 7:07 AM
[2019-05-05 07:13] LABS: Estimated Average Glucose 120 mg/dl; Hemoglobin A1C 5.8 % (4.5-5.6)
--- NOTE | 2019-05-05 07:21 | CT Scan Report ---
CT ANGIOGRAM OF THE NECK CLINICAL HISTORY: Right-sided weakness. COMPARISON STUDY: CT of the cervical spine dated 10/16/2018. TECHNIQUE: Following the IV administration of 119 of Optiray 320, CT angiogram of the neck was perfor med from the aortic arch to the skull base. Images are reviewed in the axial, sagittal, and coronal p lanes. 3-D MIPS images are created and assessed. IV contrast was administered without complication. A ll measurements were calculated based on NASCET criteria. A dose lowering technique was utilized adh ering to the principles of ALARA. FINDINGS: Thoracic aorta: There is mild atherosclerotic calcification of the thoracic aorta. Visualized portion s of the thoracic aorta are normal in caliber. The aortic arch demonstrates standard 3-vessel anatomy . Right carotid arterial system: The right common carotid artery is widely patent, as are the right int ernal and external carotid arteries. Left carotid arterial system: The left common carotid artery is widely patent, as are the left communications intern al and external carotid arteries. Vertebral arteries: The vertebral arteries are widely patent bilaterally and codominant. Subclavian arteries: Widely patent bilaterally. Intracranial vasculature: The visualized intracranial vessels at the skull base are patent. Jugular veins: Widely patent bilaterally. Brain parenchyma: The visualized brain parenchyma the skull base is within normal limits. Lung apices: Partially visualized upper lobe lung parenchyma appears clear. Soft tissues: There is a 10 mm peripherally enhancing cystic lesion in the posterior midline nasophar ynx seen on image #363. The visualized pharyngeal soft tissues are otherwise normal in appearance not ing angiographic phase technique. The oropharyngeal airway appears widely patent. The salivary and th yroid glands are normal in appearance. No cervical lymphadenopathy is seen. Skeletal structures: The visualized calvarium at the skull base appears intact. The imaged cervical s pine is maintained. There is postoperative change from anterior spinal fusion seen at C6-C7. No lytic or blastic lesion is seen. Sinuses and mastoids: The visualized paranasal sinuses are clear. The mastoid air cells are well pneu matized. IMPRESSION: 1. Normal CT angiogram of the neck. 2. There is a 10 mm peripherally enhancing cystic lesion in the posterior midline nasopharynx. 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 Nonemergent ENT follow-up is recom mended. ACT 112: Negative or not required by law. Electronically signed by: Alivno Hadley M.D. 05/05/2019 7:19 AM
--- NOTE | 2019-05-05 07:36 | XRay Report ---
XR chest 1V portable HISTORY: Pt c/o Rt sided weakness COMPARISON: Chest 04/27/2019. FINDINGS: The lungs are clear. Cardiac silhouette is normal in size. No pleural effusions. No pneumot horax. Cervical spinal fusion hardware and spinal stimulator leads are again noted. Prior cholecystec petty. IMPRESSION: No acute process. ACT 112: Negative or not required by law. Electronically signed by: Tom Ba M.D. 05/05/2019 7:34 AM
[2019-05-05] MEDS: INSULIN ASPART 100 UNITS/ML 3 ML PEN SC SCH ×4 (08:30→16:58)
--- NOTE | 2019-05-05 08:44 | History and Physical Report ---
DATE OF ADMISSION: 05/05/2019 CHIEF COMPLAINT: Stroke-like symptoms. HISTORY OF PRESENT ILLNESS: This 53-year-old female with past medical history significant for diabetes, hypothyroidism, peptic ulcer disease, nonalcoholic fatty liver disease, questionable evolving cirrhosis, fibromyalgia, COPD, tobacco use disorder, degenerative disc disease of the cervical and lumbar spine, status post cervical discectomy and fusion on 12/01/2018, bone stimulator in place, dysphagia status post EGDs with esophageal stricture with follow up EGD for dilatation, previously following with pain management clinic for neck and back pain, history of migraine, tobacco abuse, depression,history of gastric bypass surgery with liver biopsy in 04/28/2019. She had history of recent status post right peroneal nerve decompression. And recently patient on 04/08/2019 did fell and she complained of pain in the right lower extremity with some bluish discoloration on the right toes and she came to the ER on 04/27/2019 status post arterial and venous Dopplers, which were unremarkable studies. The patient lives with her and adopted kids. Since her procedure for right footdrop, she is walking with a walker.Today around midnight she felt severe neck pain and then weakness in the right upper extremity and she thought it could be from the recent fall but then she developed slurred speech, dysarthria and then when she was brought into the hospital, stroke alert was called. The symptoms lasted for couple of hours. Currently, she is back to her baseline. CT scan of the head and CTA of the head and neck are unremarkable except for CTA neck showing incidental finding of 9-mm peripherally enhancing focus within the midline nasopharynx. Currently, resting comfortable and hemodynamically stable. Vitals are stable. The patient is allergic to dye. She was given IV Benadryl, IV prednisolone, IV Zantac. Currently, somewhat drowsy possibly from iv Benadryl and constantly needs to wake her up, but answered all the questions. She also given aspirin 324 mg in the ER and the headache and neck pain has improved. Denies any blurred vision, no dizziness. Currently, no earache, no runny nose, no sore throat, no cough, no fever, no chills. Currently, having some difficulty swallowing. She says she has an appointment with GI for possible dilatation of her esophagus. No chest pain, no shortness of breath, no nausea, no vomiting, no abdominal pain. Normal bowel and bladder movements. No diarrhea or constipation or blood in stools or black stools. No hematuria or burning micturition. Currently, no swelling in the legs or rash. ALLERGIES: IODINE A CONTRAST MEDIA, OMEPRAZOLE, PEANUT, POVIDINE, ERYTHROMYCIN. PAST MEDICAL HISTORY: As mentioned above. 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 MEDICATIONS: The patient is on Crestor 5 mg p.o. daily, hydrocodone/acetaminophen 10mg tablet every 6 hours p.r.n., Cymbalta 20 mg p.o. daily, baclofen 30 mg p.o. t.i.d. p.r.n., Zofran 4 mg every 8 hours p.r.n., Protonix 40 mg p.o. daily, Ativan 0.5 mg prior to MRI, Trulicity 0.75 mg under skin once a week, levothyroxine 75 versus 100 mcg daily, gabapentin 600 mg p.o. t.i.d., albuterol 2 puffs every 4 hours p.r.n., Chantix 1 tablet p.o. b.i.d., calcium plus vitamin D daily, Benadryl p.r.n., melatonin 3 mg p.o. every night, Flintstones 1 tablet daily, MiraLax 17 g daily, senna 8.6 mg p.o. daily, Wellbutrin 150 mg p.o. b.i.d., epinephrine p.r.n. FAMILY HISTORY: Significant for aunt has breast cancer. Maternal grandmother had breast cancer. Mother had pancreatic cancer. Father has diabetes, hypertension. Daughter has mental disorder. Maternal grandmother had diabetes. SOCIAL HISTORY: . Former smoker, quit in 2018, smoked half pack a day for 32 years. No alcohol use, no drug use. REVIEW OF SYMPTOMS: As per HPI. Rest of the systems are negative. PHYSICAL EXAMINATION: GENERAL: The patient is moderate build, not in acute distress. VITAL SIGNS: Temperature 36.6, pulse 73, respiratory rate 23, blood pressure 124/84, oxygen 97% on room air. HEENT: No pallor, no icterus. Pupils equal, round, reactive to light. Extraocular muscles intact. NECK: No JVD, no neck masses, no carotid bruits. CARDIOVASCULAR: S1, S2 heard, regular rate and rhythm, no murmur, no gallop. RESPIRATORY SYSTEM: Normal AP diameter. No accessory muscle use. No wheezing, no crackles. ABDOMEN: Soft, bowel sounds present, nontender, nondistended. CENTRAL NERVOUS SYSTEM: Cranial nerves II-XII are grossly intact. Power 5/5 in extremities. No pronator drift. Coordination movements normal. Sensation is intact. Position sense intact. EXTREMITIES: No edema, no erythema. Slight bluish discoloration on the right first and second toes. LABORATORY DATA: WBC 9.1, hemoglobin 15.9, hematocrit 47.3, platelets 244. PT 10.6, INR 1, APTT 25.8. Sodium 139, potassium 3.8, chloride 104, bicarbonate 30, BUN 7, creatinine 0.8, serum glucose 96, calcium 8.9, magnesium 2.1, total bilirubin 0.4, AST 19, ALT 16, alkaline phosphatase 130. Troponin I 0.015. Urinalysis, trace positive. Toxicology screen - opiates positive, barbiturates positive. Chest x-ray: No acute findings seen. CT of head preliminary report unremarkable. CTA of the head unremarkable, CTA of the neck preliminary report unremarkable There is a 9-mm lesion in the midline nasopharynx. EKG: Normal sinus rhythm, rate of 80, no significant changes found. ASSESSMENT AND PLAN: This is a 53-year-old female who presents stroke like symptoms. 1. Stroke like symptoms with right upper extremity weakness and dysarthria lasted for about 2 hours and the symptoms resolved. Initial workup with CTA of the head and CT of the head and neck unremarkable. The patient is going for MRI now. We will follow the MRI results. The patient was stroke alert patient, will monitor in the tele floor. We will do echocardiogram, speech evaluation, PT, OT evaluation and neuro consult in a.m. for further recommendations. The patient was given 4 aspirin in the ER, will continue baby aspirin. Follow the laboratories. Monitor the vitals. Due to patient's IV contrast allergy, we will place IV fluids, normal saline 100 mL per hour. 2. History of gastric bypass surgery. Follow with PCP. Continue with vitamin supplement. 3. Possible Cirrhosis. Follow with GI. 4. Esophageal stricture. The patient has some dysphagia currently and is supposed to follow with GI, will place on low fiber diet. 5. Right foot drop, recently had femoral nerve decompression surgery and follows with neurosurgery. 6. History of diabetes, currently not on insulin as per patient. Hold Trulicity. ISS.Will monitor.. 7. GERD, on Protonix. 8. Hypothyroidism. Continue on thyroid. 9. Copd, on albuterol PRN. 10. Depression, on Cymbalta and bupropion. 11. Hyperlipidemia, on Crestor. Follow the lipid profile. 12.Nasal lesion on ct scan. Needs followup 13. Deep vein thrombosis prophylaxis. DISPOSITION: Closely monitor in tele floor. Level 1 full code. PT and OT prior to discharge. Social Service to help with discharge planning. DENNISD
[2019-05-05] MEDS ORDERED: FLINTSTONES COMPLETE CHEWABLE TAB PO SCH (09:00)
[2019-05-05] MEDS ORDERED: ASPIRIN 81 MG ECTAB PO SCH (09:00)
[2019-05-05] MEDS ORDERED: CALCIUM 600MG + VIT D 400 IU TAB PO SCH (09:00)
[2019-05-05] MEDS ORDERED: ROSUVASTATIN CALCIUM 5 MG TAB PO SCH (09:00)
[2019-05-05] MEDS ORDERED: PANTOprazole 40 MG TAB PO SCH (09:00)
[2019-05-05] MEDS ORDERED: VARENICLINE 1 MG TAB PO SCH (09:00)
[2019-05-05] MEDS ORDERED: DULOXETINE HCL 20 MG CAP PO SCH (09:00)
[2019-05-05] MEDS ORDERED: GABAPENTIN 600 MG TAB PO SCH (09:00)
[2019-05-05] MEDS ORDERED: BuPROPion SR 150 MG TABCR PO SCH (09:00)
--- NOTE | 2019-05-05 13:54 | Electrocardiogram Report ---
Test Reason : Blood Pressure : / mmHG Vent. Rate : 080 BPM Atrial Rate : 080 BPM P-R Int : 176 ms QRS Dur : 086 ms QT Int : 392 ms P-R-T Axes : 065 026 062 degrees QTc Int : 452 ms Normal sinus rhythm Normal ECG When compared with ECG of 09-NOV-2018 13:48, No significant change was found Confirmed by Nikko Landis ([id number]) on 05/05/2019 1:53:46 PM Referred By: REFERRED SELF Confirmed By:Nikko Landis
[2019-05-05] MEDS ORDERED: GABAPENTIN 400 MG CAP PO SCH (14:00)
[2019-05-05] MEDS: HYDROCODONE/ACETAMINOPHEN 10/325 TAB PO PRN ×2 (14:37→17:54)
--- NOTE | 2019-05-05 15:20 | Neurology Consultation ---
Date of Consultation May 05, 2019 Assessment & Plan (1) Arm weakness: 1. MRI - no acute findings 2. CTA head/neck- no acute findings 3. TTE- pending 4. optimize HTN, HLD, DM LDL <70 5. ENT - Tornwaldt cyst non urgent 6. smoking cessation 7. EMG scheduled for ulnar nerve issues R hand 8. R foot drop improved with sural nerve surgery 9. aspirin 81 mg and plavix 75 mg x 21 days then Plavix for life follow with neurology as scheduled. (2) Diabetes mellitus, type II: (3) Peripheral neuropathy: Supervising Physician Co-Signing Physician Notes I have seen and discussed above patient with Dr Violette Marshall, neurology PT seen and examined. By pt report she had hours of language dysfunction with R hemiparesis accompanied by and cervico-occipital throbbing headache. PT indicates a prior episode with similar sx and presumed neg imaging which was attributed to migraine. Imaging MRI, CTA are noncontrib. Exam is notable only for mild residual weakness of R TA and EHL. Impression, poss complicated migraine v TIA. given mult vasc risk factors and fact that ischemia cannot be r/o rec asa and plavix for 21d then Plavix, as pt was on asa [facility]. Pt states that she has not been taking statin. Statin should be started. Pt should see us in follow-up post dc.Will arrange any cardiac monitoring at that point. ALMA Marshall MD History of Present Illness Reason for Consultation: stroke like symptoms Requesting Physician: Jagdish Nevarez MD Attending Physician: Jagdish Nevarez MD History of Present Illness Arely is a 53 year old female with PMH DM, hypothyroidism, PUD, nonalcoholic fatty liver disease, questionable evolving cirrhosis, fibromyalgia, COPD, tobacco use disorder, DDD of cervical and lumbar spine, status post cervical discectomy and fusion on 12/01/2018, bone stimulator in place, dysphagia status post EGDs with esophageal stricture with follow up EGD for dilatation, previously following with pain management clinic for neck and back pain, migraine, depression,gastric bypass surgery with liver biopsy in 04/28/2019. She had a right peroneal nerve decompression and improvement of her right foot drop. She fell on complained of pain in the right lower extremity with some oh last discoloration on the right toes and she came to the ER on 04/27/2019 status post arterial and venous Dopplers, which were unremarkable studies. The patient lives with her and adopted kids. She felt severe neck pain and then weakness in the right upper extremity and she thought it could be from the recent fall but then she developed slurred speech, dysarthria and then when she was brought into the hospital the symptoms continue for a couple of hours. She says she has an appointment with GI for possible dilatation of her esophagus. Currently she state she is back to her baseline. denies CP, SOB, abdominal pain, N, V, vision changes, new bowel or bladder symptoms. Allergies Allergy/AdvReac Type Severity Reaction Status Date / Time Iodinated Contrast Media Allergy Unknown ANAPHYLAXIS Verified 12/03/18 13:03 omeprazole Allergy Unknown ANAPHYLAXIS Verified 12/03/18 13:03 peanut Allergy Unknown LIPS SWELL Verified 12/03/18 13:03 FROM PEANUT SHELL DUST povidone-iodine Allergy Unknown blisters Verified 12/03/18 13:03 [From Betadine] erythromycin base AdvReac Unknown GI UPSET Verified 12/03/18 13:03 Home Medications Home Medications Medication Instructions Recorded Confirmed Type Chantix 1 mg PO BID 06/01/18 05/05/19 History ondansetron HCl 4 mg PO Q6H PRN 06/01/18 05/05/19 History pantoprazole 40 mg PO QAM 06/01/18 05/05/19 History cyclobenzaprine 10 mg PO BID PRN 09/06/18 05/05/19 History levothyroxine [Synthroid] 100 mcg PO QAM 10/13/18 05/05/19 History Calcium 600 + D(3) 1 cap PO DAILY 11/08/18 05/05/19 History Flintstones Complete (iron) 2 tab PO QAM 11/08/18 05/05/19 History Juice Plus 2 cap PO DAILY 11/08/18 05/05/19 History bupropion HCl 150 mg PO BID 11/08/18 05/05/19 History hydrocodone-acetaminophen 1 tab PO Q6H PRN 11/08/18 05/05/19 History Trulicity 0.75 mg SUBCUT DIRECTED 05/05/19 05/05/19 History aspirin [Ecotrin Low Strength] 81 mg PO QAM 21 Days #21 tab 05/05/19 Rx atorvastatin 40 mg PO QAM 30 Days #30 tab 05/05/19 Rx clopidogrel 75 mg PO QAM 30 Days #30 tab 05/05/19 Rx duloxetine 20 mg PO DIRECTED 05/05/19 05/05/19 History gabapentin 400 mg PO TID 30 Days #90 cap 05/05/19 Rx rosuvastatin 5 mg PO DAILY 05/05/19 05/05/19 History Patient History Medical History Anxiety (Chronic) Bronchitis (Acute) currently under treatment with Augmentin. Degenerative disc disease (Chronic) Depression (Chronic) Diabetes mellitus, type II (Chronic) Falls frequently (Chronic) Fibromyalgia (Chronic) Foot drop (Chronic) RIGHT GERD (gastroesophageal reflux disease) (Chronic) History of esophageal stricture (Chronic) Hyperlipidemia (Chronic) HX. NO MEDS CURRENTLY Hypothyroidism (Chronic) Migraine (Chronic) HX Osteoarthritis (Chronic) Peptic ulcer disease (Chronic) HX Peripheral neuropathy (Chronic) BILATERAL FEET Sinus infection (Acute) Sinus infection 11/15/18. Remained unresolved after treatment with zithromax. Notified MD 11/24/18. Given prescription for 10 day course of Augmentin. Currently taking. Temporomandibular joint disorder (Chronic) MILD. CLICKS BUT NEVER LOCKED. Tobacco dependence syndrome (09/29/10) Surgical History History of breast biopsy (Chronic) MULITPLE ON BILATERAL BREASTS History of cholecystectomy (Chronic) History of esophageal dilatation (Chronic) History of laminectomy (Chronic) LUMBAR AREA X2 Hx of gastric bypass (Chronic) Hx of lumpectomy (Chronic) (-) RIGHT BREAST S/P insertion of spinal cord stimulator (Chronic) [facility]. Turns it off for surgery - has remote. S/P ANSHU-BSO (Chronic) Family History Family/Other Family hx of colon cancer Father Family history of diabetes mellitus Grandmother (Maternal) Family history of diabetes mellitus Social History Preferred Language: Sinhala Communication Ability: Effective Bulk Filler Required: No Beliefs That Will Affect Care: None marital status: Current Living Situation: Family Other Information That Helps Us Care for You: No Feels Safe at Home: Yes Safety Concerns: Feels Safe At This Time Smoking Status: Current every day smoker Tobacco Type: cigarettes ; Cigarettes Per Day: 3-5 OCCASIONALLY ; Second Hand Exposure: Yes ; Hx Alcohol Use: No Hx Substance Use: No Physical Exam Physical Exam: Physical Exam: Constitutional: appearance nourished, thin Ears, Nose, Mouth and Throat: mucous membranes moist, no injection and skin normal, eyes normal Cardiovascular: normal S-1 and S-2 and regular rate and rhythm Respiratory: course breath sounds Musculoskeletal: no peripheral edema and good distal pulses R<L Skin: no stigmata of neurocutaneous disease noted and normal and intact Eyes: extraocular muscles intact (EOMI) and pupils equal, round and reactive to light (PERRL) NEUROLOGIC EXAMINATION: Mental status: Alert and interactive Oriented to full date and location Oriented to person Speech fluent with no evidence of aphasia Cranial Nerves smile and eye brow raise symmetric Reflexes: Deep tendon reflexes were symmetrical and graded 2/5. toes neutral bilaterally Sensory: decreased sensation to light touch left UE/LE intact to vibration Coordination: finger to nose no bi pass Gait/Stance: Posture normal. Gait normal: with steady with steps, tandem gait, able to garibay flex ext right foot. Motor: Negative for pronator drift of out stretched arms with eyes closed. Strength: hand joint setter biceps triceps right 4+/5, left 5/5, hip flex right 4/5, left 5/5 Results & Data Vital Signs (Past 12 Hours) Vital Signs Temp Pulse Pulse Resp BP BP BP 05/05/19 11:00 36.6 C 84 20 05/05/19 08:00 73 05/05/19 07:28 36.4 C L 67 18 113/69 05/05/19 06:06 05/05/19 05:35 36.4 C L 74 18 149/90 H 05/05/19 04:52 73 18 120/79 05/05/19 04:00 36.6 C 73 23 124/84 05/05/19 03:50 75 20 127/112 H 05/05/19 03:40 75 16 128/84 05/05/19 03:30 78 17 135/87 05/05/19 03:20 72 18 125/81 Pulse Ox Pulse Ox 05/05/19 11:00 93 05/05/19 08:00 05/05/19 07:28 96 05/05/19 06:06 95 05/05/19 05:35 95 05/05/19 04:52 95 05/05/19 04:00 97 05/05/19 03:50 97 05/05/19 03:40 97 05/05/19 03:30 95 05/05/19 03:20 97 Laboratory Results Abnormal lab results 05/05/19 05/05/19 05/05/19 Range/Units 02:30 02:30 02:30 Hct 47.3 H (37-47) % RDW Std Deviation 49.8 H (36.4-46.3) fL RDW Coeff of Lionel 15.0 H (11.5-14.5) % MPV 12.2 H (7.4-10.4) fL Lymph # (Auto) 5.15 H (1.2-3.4) K/uL Potassium 3.3 L (3.5-5.1) mmol/L BUN/Creatinine Ratio 9.1 L (10-20) POC Glucose (70-99) mg/dl Hemoglobin A1c 5.8 H (4.5-5.6) % Alkaline Phosphatase 138 H (45-117) U/L Albumin 3.1 L (3.4-5.0) gm/dl Albumin/Globulin Ratio 0.8 L (0.9-2) Ur Leukocyte Esterase (Negative) Urine WBC (Auto) (0-5) /hpf Urine Opiates Screen (Neg) Urine Barbiturates (Neg) 05/05/19 05/05/19 05/05/19 Range/Units 03:50 03:50 07:15 Hct (37-47) % RDW Std Deviation (36.4-46.3) fL RDW Coeff of Lionel (11.5-14.5) % MPV (7.4-10.4) fL Lymph # (Auto) (1.2-3.4) K/uL Potassium (3.5-5.1) mmol/L BUN/Creatinine Ratio (10-20) POC Glucose 149 H (70-99) mg/dl Hemoglobin A1c (4.5-5.6) % Alkaline Phosphatase (45-117) U/L Albumin (3.4-5.0) gm/dl Albumin/Globulin Ratio (0.9-2) Ur Leukocyte Esterase Trace H (Negative) Urine WBC (Auto) 5-10 H (0-5) /hpf Urine Opiates Screen Pos H (Neg) Urine Barbiturates Pos H (Neg) 05/05/19 Range/Units 11:05 Hct (37-47) % RDW Std Deviation (36.4-46.3) fL RDW Coeff of Lionel (11.5-14.5) % MPV (7.4-10.4) fL Lymph # (Auto) (1.2-3.4) K/uL Potassium (3.5-5.1) mmol/L BUN/Creatinine Ratio (10-20) POC Glucose 266 H (70-99) mg/dl Hemoglobin A1c (4.5-5.6) % Alkaline Phosphatase (45-117) U/L Albumin (3.4-5.0) gm/dl Albumin/Globulin Ratio (0.9-2) Ur Leukocyte Esterase (Negative) Urine WBC (Auto) (0-5) /hpf Urine Opiates Screen (Neg) Urine Barbiturates (Neg) Diagnostic Findings MRI brain -No acute intracranial abnormality. . A 1.0 cm complex T2 hyperintense lesion in the posterior midline nasopharynx is again noted. 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 Consider nonemergent ENT follow-up. CTA neck -Normal CT angiogram of the neck. There is a 10 mm peripherally enhancing cystic lesion in the posterior midline nasopharynx. 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 Nonemergent ENT follow-up is recommended. CTA head- No significant stenosis, occlusion, or aneurysm within the [place]. A 9 mm irregular peripheral enhancing cystic focus within the midline the adenoids. This favors a Tornwaldt cyst. Direct visualization can be performed for further evaluation. CXR-The lungs are clear. Cardiac silhouette is normal in size. No pleural effusions. No pneumothorax. Cervical spinal fusion hardware and spinal stimulator leads are again noted. Prior cholecystectomy. TTE- pending
[2019-05-05] MEDS ORDERED: CLOPIDOGREL BISULFATE 75 MG TAB PO ONE (16:55)
[2019-05-05] MEDS ORDERED: STROKE PATIENT DISCHARGE STA (17:28)
[2019-05-05] MEDS ORDERED: ATORVASTATIN 40 MG TAB PO SCH (17:30)
--- NOTE | 2019-05-05 17:34 | Hospitalist Progress Note ---
Date of Service May 05, 2019 Supervising Physician Co-Signing Physician Notes "Stroke-Like Symptoms" as a transient ischemic attack (TIA) as per neurology [employer]men Ovale -a 53-year-old female who presents stroke like symptoms. Stroke like symptoms with right upper extremity weakness and dysarthria lasted for about 2 hours and the symptoms resolved. Initial workup with CTA of the head and CT of the head and neck unremarkable. No brain ischemia on MRI -these symptoms were not seen in the hospital -no acute telemetry events -Patient reported that she has been on aspirin 81 mg when suspected neurological event happened at home. Discharge medication of aspirin 81 mg daily and clopidogrel daily for 21 days and then patient is to continue clopidogrel daily for life. Patient is noted to have a Patent Baker O[place] on echocardiogram and should take these medications to prevent recurrent stroke risk -also statin as atorvastatin 40 mg daily for prevent stroke risk gabapentin reduced from 600 mg TID to 400 mg TID Discharge medications sent electronically to [facility] on [address], [place] [address] Tornwaldt cyst -Patient may seek ENT clinic appointment to discuss about evaluation of Tornwaldt cyst incidentally seen on head imaging during the workup of "Stroke- Like Symptoms" which is diagnosed as a transient ischemic attack (TIA) as per neurology service Type 2 diabetes mellitus without buttermaker continuous churn current use of insulin -can resume Trulicity at home Right foot drop -chronic Hypothyroidism -Continue on thyroid. History of gastric bypass surgery. -Continue with vitamin supplement. Esophageal stricture. Possible Cirrhosis -outpatient follow up with gastroenterology GERD -on Protonix. COPD -no respiratory exacerbation Depression -on Cymbalta and bupropion Subjective Patient seen and examine . chronic right foot drop. no acute events on telemetry. no problems with speech. no worsening neck pains. no nausea. no vomiting. no chest pain. no shortness of breath Review of Systems Review of Systems: All systems reviewed & are unremarkable except as noted in HPI & below Physical Exam Constitutional: comfortable Eyes: PERRL, conjunctivae normal, anicteric sclerae EOM intact bilaterally ENMT: external ear and nose normal, oropharynx normal Neck: normal visual inspection Respiratory: normal respiratory effort, lungs clear to auscultation Cardiovascular: Rate/Rhythm: regular rate and regular rhythm Gastrointestinal (Abdomen): normal bowel sounds, soft, nontender, no hepatosplenomegaly Musculoskeletal: Head/Neck/Chest: normocephalic and head atraumatic Neurologic: PERRL, EOMI, accommodation nl, no face palsy, no dysarthria moves all extremities (chronic right foot drop) Psychiatric: A+Ox3, euthymic affect Results & Data ([facility]) Vital Signs (Past 12 Hours) Vital Signs Temp Pulse Pulse Resp BP BP Pulse Ox 05/05/19 15:34 36.3 C L 78 20 116/71 92 05/05/19 15:25 88 05/05/19 11:00 36.6 C 84 20 93 05/05/19 08:00 73 05/05/19 07:28 36.4 C L 67 18 113/69 96 05/05/19 06:06 05/05/19 05:35 36.4 C L 74 18 149/90 H 95 Pulse Ox 05/05/19 15:34 05/05/19 15:25 05/05/19 11:00 05/05/19 08:00 05/05/19 07:28 05/05/19 06:06 95 05/05/19 05:35
--- NOTE | 2019-05-05 17:47 | Discharge Summary ---
Date of Service May 05, 2019 Admission HPI Per Admitting Provider DATE OF ADMISSION: 05/05/2019 CHIEF COMPLAINT: Stroke-like symptoms. HISTORY OF PRESENT ILLNESS: This 53-year-old female with past medical history significant for diabetes, hypothyroidism, peptic ulcer disease, nonalcoholic fatty liver disease, questionable evolving cirrhosis, fibromyalgia, COPD, tobacco use disorder, degenerative disc disease of the cervical and lumbar spine, status post cervical discectomy and fusion on 12/01/2018, bone stimulator in place, dysphagia status post EGDs with esophageal stricture with follow up EGD for dilatation, previously following with pain management clinic for neck and back pain, history of migraine, tobacco abuse, depression,history of gastric bypass surgery with liver biopsy in 04/28/2019. She had history of recent status post right peroneal nerve decompression. And recently patient on 04/08/2019 did fell and she complained of pain in the right lower extremity with some bluish discoloration on the right toes and she came to the ER on 04/27/2019 status post arterial and venous Dopplers, which were unremarkable studies. The patient lives with her and adopted kids. Since her procedure for right footdrop, she is walking with a walker.Today around midnight she felt severe neck pain and then weakness in the right upper extremity and she thought it could be from the recent fall but then she developed slurred speech, dysarthria and then when she was brought into the hospital, stroke alert was called. The symptoms lasted for couple of hours. Currently, she is back to her baseline. CT scan of the head and CTA of the head and neck are unremarkable except for CTA neck showing incidental finding of 9-mm peripherally enhancing focus within the midline nasopharynx. Currently, resting comfortable and hemodynamically stable. Vitals are stable. The patient is allergic to dye. She was given IV Benadryl, IV prednisolone, IV Zantac. Currently, somewhat drowsy possibly from iv Benadryl and constantly needs to wake her up, but answered all the questions. She also given aspirin 324 mg in the ER and the headache and neck pain has improved. Denies any blurred vision, no dizziness. Currently, no earache, no runny nose, no sore throat, no cough, no fever, no chills. Currently, having some difficulty swallowing. She says she has an appointment with GI for possible dilatation of her esophagus. No chest pain, no shortness of breath, no nausea, no vomiting, no abdominal pain. Normal bowel and bladder movements. No diarrhea or constipation or blood in stools or black stools. No hematuria or burning micturition. Currently, no swelling in the legs or rash. ALLERGIES: IODINE A CONTRAST MEDIA, OMEPRAZOLE, PEANUT, POVIDINE, ERYTHROMYCIN. PAST MEDICAL HISTORY: As mentioned above. PAST SURGICAL HISTORY: Breast lesion excision, colonoscopy, EGDs with transendoscopic dilatation, EGD with endoscopic ultrasound, neurostimulator placement, implant of epidural electrodes implants, spinal neuro cinder pitman, wrist surgery x 2, laparoscopic procedure of the liver, laparoscopic gastric bypass surgery, lumbar hemilaminectomy, right peripheral nerve neuroplasty, appendectomy, hysterectomy, tonsillectomy, cholecystectomy, repair of incisional hernia, total abdominal hysterectomy with removal of tubes. MEDICATIONS: The patient is on Crestor 5 mg p.o. daily, hydrocodone/acetaminophen 10mg tablet every 6 hours p.r.n., Cymbalta 20 mg p.o. daily, baclofen 30 mg p.o. t.i.d. p.r.n., Zofran 4 mg every 8 hours p.r.n., Protonix 40 mg p.o. daily, Ativan 0.5 mg prior to MRI, Trulicity 0.75 mg under skin once a week, levothyroxine 75 versus 100 mcg daily, gabapentin 600 mg p.o. t.i.d., albuterol 2 puffs every 4 hours p.r.n., Chantix 1 tablet p.o. b.i.d., calcium plus vitamin D daily, Benadryl p.r.n., melatonin 3 mg p.o. every night, Flintstones 1 tablet daily, MiraLax 17 g daily, senna 8.6 mg p.o. daily, Wellbutrin 150 mg p.o. b.i.d., epinephrine p.r.n. FAMILY HISTORY: Significant for aunt has breast cancer. Maternal grandmother had breast cancer. Mother had pancreatic cancer. Father has diabetes, hypertension. Daughter has mental disorder. Maternal grandmother had diabetes. SOCIAL HISTORY: . Former smoker, quit in 2018, smoked half pack a day for 32 years. No alcohol use, no drug use. REVIEW OF SYMPTOMS: As per HPI. Rest of the systems are negative. Admission Exam Per Admitting Provider GENERAL: The patient is moderate build, not in acute distress. VITAL SIGNS: Temperature 36.6, pulse 73, respiratory rate 23, blood pressure 124/84, oxygen 97% on room air. HEENT: No pallor, no icterus. Pupils equal, round, reactive to light. Extraocular muscles intact. NECK: No JVD, no neck masses, no carotid bruits. CARDIOVASCULAR: S1, S2 heard, regular rate and rhythm, no murmur, no gallop. RESPIRATORY SYSTEM: Normal AP diameter. No accessory muscle use. No wheezing, no crackles. ABDOMEN: Soft, bowel sounds present, nontender, nondistended. CENTRAL NERVOUS SYSTEM: Cranial nerves II-XII are grossly intact. Power 5/5 in extremities. No pronator drift. Coordination movements normal. Sensation is intact. Position sense intact. EXTREMITIES: No edema, no erythema. Slight bluish discoloration on the right first and second toes. Principal Diagnosis "Stroke-Like Symptoms" as a transient ischemic attack (TIA) as per neurology, [employer], Tornwaldt cyst, Type 2 diabetes mellitus without care home current use of insulin, Depression Discharge Exam Constitutional comfortable Eyes PERRL, conjunctivae normal, anicteric sclerae EOM intact bilaterally ENMT external ear and nose normal, oropharynx normal Neck normal visual inspection Respiratory normal respiratory effort, lungs clear to auscultation Cardiovascular Rate/Rhythm: regular rate and regular rhythm Gastrointestinal (Abdomen) normal bowel sounds, soft, nontender, no hepatosplenomegaly Musculoskeletal Head/Neck/Chest: normocephalic and head atraumatic Neurologic PERRL, EOMI, accommodation nl, no face palsy, no dysarthria moves all extremities (chronic right foot drop) Psychiatric A+Ox3, euthymic affect Discharge Data Allergies Allergy/AdvReac Type Severity Reaction Status Date / Time Iodinated Contrast Media Allergy Unknown ANAPHYLAXIS Verified 12/03/18 13:03 omeprazole Allergy Unknown ANAPHYLAXIS Verified 12/03/18 13:03 peanut Allergy Unknown LIPS SWELL Verified 12/03/18 13:03 FROM PEANUT SHELL DUST povidone-iodine Allergy Unknown blisters Verified 12/03/18 13:03 [From Betadine] erythromycin base AdvReac Unknown GI UPSET Verified 12/03/18 13:03 Consultations 05/05/19 03:24 ED Decision to Admit Stat 05/05/19 05:35 Consult Case Management - Discharge Planning Routine 05/05/19 08:00 Consult Neurology Routine Ordered Studies 05/05/19 02:39 CT head/brain wo con Urgent 05/05/19 02:40 CT angio head w con Urgent CT angio neck with con Urgent 05/05/19 03:21 MR brain wo con Urgent Total Time Total Time Spent Total Time Spent (In Minutes): 40 minutes Total Time Includes: Examination of the Patient, Discharge Planning, Medication Reconciliation and Communication With Other Providers Discharge Plan Discharge Items Patient Disposition: Home - Self-Care Reason For Visit: STROKE LIKE SYMPTOMS Discharge Diagnosis: "Stroke-Like Symptoms" as a transient ischemic attack (TIA) as per neurology, [employer], Tornwaldt cyst, Type 2 diabetes mellitus without care home current use of insulin, Depression Condition on Discharge: Good Activity: Resume your previous activity Non-emergency contact: Primary Care Provider and Neurologist Call non-emergency contact if: you have any medication questions Follow-up/Referrals: Irma Fry MD [Primary Care Provider] - Diet: Carb Consistent or DM2 Addtl Attending Provider Instructions: Patient may seek ENT clinic appointment to discuss about evaluation of Tornwaldt cyst incidentally seen on head imaging during the workup of "Stroke-Like Symptoms" which is diagnosed as a transient ischemic attack (TIA) as per neurology service Patient reported that she has been on aspirin 81 mg when event happened at home. Discharge medication of aspirin 81 mg daily and clopidogrel daily for 21 days and then patient is to continue clopidogrel daily for life. Patient is noted to have a Patent Baker O[place] on echocardiogram and should take these medications to prevent recurrent stroke risk also statin as atorvastatin 40 mg daily for prevent stroke risk gabapentin reduced from 600 mg TID to 400 mg TID Discharge medications sent electronically to [facility] on [address], [place] [address] scheduled appointments 05/06/2019 1:00 PM Provider Deandra Caballero MD Department Hepatology, [facility] 05/10/2019 1:00 PM Provider Irma Fry MD Department General Internal Medicine [facility] 05/11/2019 9:30 AM Provider Deandra Caballero MD Department Endoscopy, [facility] 05/13/2019 3:00 PM Provider Triston Mixon PA-C Department General Surgery, [place] 05/17/2019 11:20 AM Provider Violette Aldrich PA-C Department Neurology [facility] 05/17/2019 2:20 PM Provider Violette Marshall MD Department Neurophysiology [facility] 05/19/2019 4:00 PM Provider [facility] Department Pharmacy, [facility] 05/19/2019 4:40 PM Provider Irma Fry MD Department General Internal Medicine [facility] 05/23/2019 1:00 PM Provider Elmer Sanford MD Department Neurosurgery, [facility] [place] Provider Instructions: Risk Factors for Stroke: You can reduce your chances of stroke by working with your medical provider to adopt a healthy lifestyle. Some specific ways to lower your chance of stroke are: * If you are a smoker, now is the time to stop smoking cigarettes * If you are diabetic, improve the control of your blood sugars * Avoid excessive amounts of alcohol * Control high blood pressure * Lose weight if you are overweight * Be sure to lead an active lifestyle * Eat a healthy diet low in salt, cholesterol and fat You should know about other risk factors for stroke that you are unable to control. These include: * Age 55 years or older * Male gender * Certain racial groups: , or / * Family History of Stroke, Mini stroke or Heart Attack * Sickle Cell Disease Follow Up: It is important for you to keep your follow up appointments with your medical provider. Who to Call and When: Medical Emergencies: Call 911 immediately if you experience any of the following warning signs and symptoms of Stroke: * Sudden numbness or weakness of the face, arm or leg, especially on one side of the body * Sudden confusion, trouble speaking or understanding * Sudden trouble seeing in one or both eyes * Sudden trouble walking, dizziness, loss of balance or coordination * Sudden severe headache with no cause Do not delay calling 911 if you experience any warning signs or symptoms of a stroke. Delay in seeking medical attention may affect what treatments can be given to you. . Pending Studies at Discharge: No Stand-Alone Forms: My [facility] G-cluster, Smoking Cessation Medications and DC Order Prescriptions: New gabapentin 400 mg Capsule 400 mg PO TID 30 Days Qty: 90 RF: 0 atorvastatin 40 mg Tablet 40 mg PO QAM 30 Days Qty: 30 RF: 0 clopidogrel 75 mg Tablet 75 mg PO QAM 30 Days Qty: 30 RF: 0 aspirin [Ecotrin Low Strength] 81 mg Tablet,Delayed Release (Dr/Ec) 81 mg PO QAM 21 Days Qty: 21 RF: 0 Continued levothyroxine [Synthroid] 100 mcg tablet 100 mcg PO QAM RF: 0 bupropion HCl 150 mg Tablet Sustained-Release 12 Hr 150 mg PO BID RF: 0 hydrocodone-acetaminophen 10-325 mg Tablet 1 tab PO Q6H PRN (Reason: Pain) RF: 0 Flintstones Complete (iron) tablet,chewable 2 tab PO QAM RF: 0 Calcium 600 + D(3) 600 mg calcium- 200 unit Capsule 1 cap PO DAILY RF: 0 Juice Plus 2 cap PO DAILY RF: 0 pantoprazole 40 mg tablet,delayed release (DR/EC) 40 mg PO QAM RF: 0 Chantix 1 mg Tablet 1 mg PO BID RF: 0 ondansetron HCl 4 mg tablet 4 mg PO Q6H PRN (Reason: Nausea) RF: 0 cyclobenzaprine 10 mg tablet 10 mg PO BID PRN (Reason: Muscle Spasm) RF: 0 rosuvastatin 5 mg Capsule, Sprinkle 5 mg PO DAILY RF: 0 Trulicity 0.75 mg/0.5 mL Pen Injector 0.75 mg SUBCUT DIRECTED RF: 0 duloxetine 20 mg Capsule,Delayed Release(Dr/Ec) 20 mg PO DIRECTED RF: 0 Discontinued gabapentin 600 mg Tablet 600 mg PO TID RF: 0 Discharge Orders: Discharge Order (Routine); Ordered 05/05/19 Ordered By: Jagdish Nevarez Admission Data Admit Date/Time: 05/05/19 04:29 Attending Provider: Jagdish Nevarez Admit Provider: Alan Silverman Primary Care Provider: Irma Fry Other Providers: Alan Silverman ; Violette Aldrich ; Liban Dempsey ; Violette Marshall ; Dallas Palma ; [facility] Supervising Physician Co-Signing Physician Notes "Stroke-Like Symptoms" as a transient ischemic attack (TIA) as per neurology [employer] -a 53-year-old female who presents stroke like symptoms. Stroke like symptoms with right upper extremity weakness and dysarthria lasted for about 2 hours and the symptoms resolved. Initial workup with CTA of the head and CT of the head and neck unremarkable. No brain ischemia on MRI -these symptoms were not seen in the hospital -no acute telemetry events -Patient reported that she has been on aspirin 81 mg when suspected neurological event happened at home. Discharge medication of aspirin 81 mg daily and clopidogrel daily for 21 days and then patient is to continue clopidogrel daily for life. Patient is noted to have a Patent Baker [place] on echocardiogram and should take these medications to prevent recurrent stroke risk -also statin as atorvastatin 40 mg daily for prevent stroke risk gabapentin reduced from 600 mg TID to 400 mg TID Discharge medications sent electronically to [facility] on [address], [place] [address] Tornwaldt cyst -Patient may seek ENT clinic appointment to discuss about evaluation of Tornwaldt cyst incidentally seen on head imaging during the workup of "Stroke- Like Symptoms" which is diagnosed as a transient ischemic attack (TIA) as per neurology service Type 2 diabetes mellitus without long term care 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 History of gastric bypass surgery. -Continue with vitamin supplement. Esophageal stricture. Possible Cirrhosis -outpatient follow up with gastroenterology GERD -on Protonix. COPD -no respiratory exacerbation Depression -on Cymbalta and bupropion
--- NOTE | 2019-05-05 18:25 | Pharmacy Report ---
Pharmacist Stroke Counseling - Date of Service May 05, 2019 - Scope: Pharmacy has been consulted to provide medication discharge counseling for this patient admitted with transient ischemic attack as per the Pharmacist Discharge Counseling for Stroke Patients Protocol. - Medications on Discharge: Home Medications Medication Instructions Recorded Confirmed Chantix 1 mg PO BID 06/01/18 05/05/19 ondansetron HCl 4 mg PO Q6H PRN 06/01/18 05/05/19 pantoprazole 40 mg PO QAM 06/01/18 05/05/19 cyclobenzaprine 10 mg PO BID PRN 09/06/18 05/05/19 levothyroxine [Synthroid] 100 mcg PO QAM 10/13/18 05/05/19 Calcium 600 + D(3) 1 cap PO DAILY 11/08/18 05/05/19 Flintstones Complete (iron) 2 tab PO QAM 11/08/18 05/05/19 Juice Plus 2 cap PO DAILY 11/08/18 05/05/19 bupropion HCl 150 mg PO BID 11/08/18 05/05/19 hydrocodone-acetaminophen 1 tab PO Q6H PRN 11/08/18 05/05/19 Trulicity 0.75 mg SUBCUT DIRECTED 05/05/19 05/05/19 duloxetine 20 mg PO DIRECTED 05/05/19 05/05/19 rosuvastatin 5 mg PO DAILY 05/05/19 05/05/19 New Rx's Medication Instructions Recorded aspirin [Ecotrin Low Strength] 81 mg PO QAM 21 Days #21 tab 05/05/19 atorvastatin 40 mg PO QAM 30 Days #30 tab 05/05/19 clopidogrel 75 mg PO QAM 30 Days #30 tab 05/05/19 gabapentin 400 mg PO TID 30 Days #90 cap 05/05/19 - Action: The above medications, specifically ones for stroke treatment/prophylaxis, have been reviewed in detail with the patient and/or patient wholesale representative(s) prior to discharge. This includes indication, common adverse reactions, drug interactions, and medication administration. Medication counseling has been employed using the teach-back method to ensure understanding. - Outcome: The patient and/or patient wholesale representative(s) have demonstrated understanding of the medications. Please note, they are aware that the pharmacist will call them within 72 hours post-discharge to confirm that the appropriate medications are being taken and answer any further medication related questions the patient might have at that time. Contact information Individual to be contacted: Arely Relationship to patient (if applicable): patient Phone number: [phone] Best time to call: After noon Additional comments: n/a Thank you for allowing pharmacy to be involved in the care of this patient. Please call [phone] or [phone] with any additional questions
[2019-05-06] MEDS ORDERED: CLOPIDOGREL BISULFATE 75 MG TAB PO SCH (09:00)
--- NOTE | 2019-05-06 13:41 | Pharmacy Report ---
Pharmacist Post D/C Phone Note - Phone Note: Date of phone call: May 06, 2019. The patient and/or patient field representative(s) were unable to be reached for a follow-up phone call within the 72 hour time frame. Discharge counseling pharmacist contact information has already been provided to the patient should questions arise. Thank you for allowing us to be involved in the care of this patient. - Home Medications: Home Medications Medication Instructions Recorded Confirmed Chantix 1 mg PO BID 06/01/18 05/05/19 ondansetron HCl 4 mg PO Q6H PRN 06/01/18 05/05/19 pantoprazole 40 mg PO QAM 06/01/18 05/05/19 cyclobenzaprine 10 mg PO BID PRN 09/06/18 05/05/19 levothyroxine [Synthroid] 100 mcg PO QAM 10/13/18 05/05/19 Calcium 600 + D(3) 1 cap PO DAILY 11/08/18 05/05/19 Flintstones Complete (iron) 2 tab PO QAM 11/08/18 05/05/19 Juice Plus 2 cap PO DAILY 11/08/18 05/05/19 bupropion HCl 150 mg PO BID 11/08/18 05/05/19 hydrocodone-acetaminophen 1 tab PO Q6H PRN 11/08/18 05/05/19 Trulicity 0.75 mg SUBCUT DIRECTED 05/05/19 05/05/19 duloxetine 20 mg PO DIRECTED 05/05/19 05/05/19 rosuvastatin 5 mg PO DAILY 05/05/19 05/05/19 New Rx's Medication Instructions Recorded aspirin [Ecotrin Low Strength] 81 mg PO QAM 21 Days #21 tab 05/05/19 atorvastatin 40 mg PO QAM 30 Days #30 tab 05/05/19 clopidogrel 75 mg PO QAM 30 Days #30 tab 05/05/19 gabapentin 400 mg PO TID 30 Days #90 cap 05/05/19
[2019-05-07 12:32] LABS: Amobarbital, Urine Conf NEGATIVE ng/mL (<100); Butalbital, Urine 2176 ng/mL (<100); Codeine Urine NEGATIVE ng/mL (<50); Hydrocodone Urine 184 ng/mL (<50); Hydromor Urine 119 ng/mL (<50); Morphine Urine NEGATIVE ng/mL (<50); Norhydrocodone Conf Ur 432 ng/mL (<50); Noroxycodone Urine NEGATIVE ng/mL (<50); Oxycodone Urine NEGATIVE ng/mL (<50); Oxymorph Urine NEGATIVE ng/mL (<50); Pentobarbital, Urine Conf NEGATIVE ng/mL (<100); Phenobarbital, Urine NEGATIVE ng/mL (<100); Secobarbital, Urine Conf NEGATIVE ng/mL (<100)
== END 2019-05-05 18:30 | disposition home health service (06) | DRG 69 ==
LOC: ED 02:33 → OBSVTOIN 04:29 → INTOOBSV 04:29 → 1E 04:29 → 2S 11:01

== ENCOUNTER 2021-10-10 16:31 | Observation (INO) ==
--- NOTE | 2021-10-10 16:48 | ED Triage Note ---
Date of Service October 10, 2021 History of Present Illness This patient was briefly evaluated while in triage. An abbreviated physical exam was performed. This patient is a 55-year-old Female with past medical history of COPD who presents to the ED for evaluation of possible PE. Recently diagnosed with DVT, started on eliquis, now having SOB. Reports oxygen was 85% at office and was sent here. Physical Exam CONSTITUTIONAL: No acute distress. Well appearing. RESPIRATORY: Clear to auscultation bilaterally. Equal expansion bilaterally. CARDIOVASCULAR: Tachycardic rate, regular rhythm. Normal peripheral perfusion. No peripheral edema. NEUROLOGIC: Alert and oriented X 4 with normal affect. Initial orders for labs and / or imaging were placed and patient was placed in the waiting area until a bed is available. Patient reports IV contrast dye allergy, but states that she has tolerated it in the past if she is premedicated with IV Benadryl and steroids. This was discussed with Dr. Carey, radiologist, who agreed that the patient could have the study after 1 hour of receiving premedication. Please see further documentation for the full ED course. MDM / Impression Impression Impression: Chest pain, Shortness of breath
[2021-10-10] MEDS ORDERED: methylPREDNISolone 125 MG/2 ML VIAL IV STA (16:51)
[2021-10-10] MEDS ORDERED: SODIUM CHLORIDE 0.9% 1000ML 250 ML IV ONE (16:51)
[2021-10-10] MEDS ORDERED: diphenhydrAMINE 50 MG/ML VIAL IV STA (16:51)
[2021-10-10 18:19] LABS: Basophils # (auto) 0.04 K/uL (0-0.2); Basophils % (auto) 0.4 %; Eosinophils # (auto) 0.04 K/uL (0-0.50); Eosinophils % (auto) 0.4 %; Hematocrit (blood only) 46.2 % (34.1-44.9); Immature Granulocytes # (auto) 0.02 K/uL (0.00-0.02); Immature Granulocytes % (auto) 0.2 %; Lymphocytes # (auto) 2.94 K/uL (1.2-3.4); Lymphocytes % (auto) 32.3 %; Mean Corpuscular Hemoglobin 29.5 pg (25.0-34.0); Mean Corpuscular Hgb Conc 32.5 g/dL (32.0-36.0); Mean Corpuscular Volume 90.8 fL (80.0-100.0); Monocytes # (auto) 0.66 K/uL (0.24-0.82); Monocytes % (auto) 7.3 %; Neutrophils # (auto) 5.39 K/uL (1.4-6.5); Neutrophils % (auto) 59.4 %; Platelet Count 318 K/uL (130-400); RDW Coefficient of Variation 14.6 % (11.5-14.5); Red Blood Count 5.09 M/uL (3.93-5.22); White Blood Count 9.09 K/ul (4.8-10.8)
[2021-10-10 18:32] LABS: Partial Thromboplastin Time 27.2 Seconds (21.0-31.0); Prothrombin Time 10.4 Seconds (9.0-12.0)
[2021-10-10 18:39] LABS: Albumin Globulin Ratio 0.9 (0.9-2); BUN Creatinine Ratio 11.8 (10-20); Bilirubin,Total 0.5 mg/dl (0.2-1.0); Calcium 8.4 mg/dl (8.5-10.1); Creatinine Clr Calc Pharmacy 47.4 ml/min; Est GFR (African American) 66.4 ml/min; Est GFR (Non-African American) 57.3 ml/min; Globulin 3.4 gm/dl (2.5-4.0); Potassium 3.8 mmol/L (3.5-5.1); Total Protein 6.4 gm/dl (6.0-8.3)
[2021-10-10 18:45] LABS: Troponin I High Sensitivity 5.5 pg/ml (0-14)
--- NOTE | 2021-10-10 18:56 | XRay Report ---
XR chest 1V portable CLINICAL HISTORY: Chest Pain TECHNIQUE: Single frontal radiograph of the chest was obtained. Comparison: Comparison is made to chest radiograph 05/05/2020 FINDINGS: Spinal stimulator is noted. Anterior cervical fixation hardware is seen. Calcified aortic knob is see n. The lungs are clear. No evidence of pleural effusion or pneumothorax. IMPRESSION: No acute chest disease. ACT 112: Negative or not required by law. Electronically signed by: Will Carey M.D. 10/10/2021 6:55 PM
[2021-10-10] MEDS ORDERED: SODIUM CHLORIDE 0.9% 1000ML 2,000 ML IV ONE (19:08)
--- NOTE | 2021-10-10 19:08 | Emergency Department Note ---
Impression & Plan Chest pain, Shortness of breath ED Provider Note NAME: SOCRATES JUDD AGE: 55 SEX: F : 1965 ARRIVES VIA: Walk-In INFORMANT: Patient ED PROVIDER(S): Elmer Augustine DO CHIEF COMPLAINT: chest pain HPI: Patient is a 55-year-old female with a past medical history of COPD, mood disorder, hyperlipidemia, diabetes, hypothyroidism, status post gastric bypass surgery who presents to the ER for exertional chest pain which has been present for the past 2 days. She describes it as a tightness and it resolves. She does have some shortness of breath with it. No arm or jaw pain with it. No belly pain, nausea, vomiting, or diarrhea. No dysuria, urgency, or frequency. She does have a recent DVT placed on Xarelto. She has not missed any doses. This was diagnosed last week. She was sent in by her PCP for further evaluation. ROS: See above HPI for pertinent positives & negatives. A total of 10 systems reviewed and were otherwise negative. PAST MEDICAL HISTORY:See Below PAST SURGICAL HISTORY:See Below FAMILY HISTORY:See Below SOCIAL HISTORY:See Below HOME MEDICATIONS:See Below ALLERGIES:See Below VITALS:See Below PHYSICAL EXAMINATION: GENERAL: Sitting up in bed, alert, well appearing, well nourished, no distress, non-toxic EYE EXAM: normal conjunctiva. OROPHARYNX: mucous membranes are moist NECK: supple, no nuchal rigidity, no adenopathy, non-tender LUNGS: Clear to auscultation. Normal chest wall mechanics HEART: no murmurs, S1 normal and S2 normal ABDOMEN: abdomen soft, non-tender, normo-active bowel sounds, no masses, no rebound or guarding. UPPER EXTREMITIES: upper extremities are grossly normal. LOWER EXTREMITIES: No pitting edema. NEURO EXAM: Normal sensorium, cranial nerves II-XII grossly intact, normal speech, no gross weakness of arms, no gross weakness of legs. MEDICAL DECISION MAKING: Patient is a 55-year-old female who presents ER for exertional chest tightness and lower chest which has been present for the past 2 days. Comes and goes with exertion. Resolves with rest. IV was established blood work was obtained. Labs show no significant leukocytosis or anemia. INR unremarkable. BMP with LFTs bilirubin was unremarkable. Lipase and TSH were normal. Alk phos slightly up. COVID was negative. CT angio chest was performed and she was premedicated beforehand due to a contrast allergy. Shows no PEs. EKG was nondiagnostic. With her exertional symptoms and previous history of diabetes hyperlipidemia and smoker did discuss with hospitalist for observation. Triage Nursing notes reviewed. Limited review of prior medical records performed Vital Signs: reviewed and remarkable for tachy Differential diagnosis: Differential diagnoses includes but is not limited to acute coronary syndrome, myocardial infarction, pericarditis, pulmonary embolus, aortic dissection, pneumonia, pneumothorax, musculoskeletal, shingles, esophageal. ER treatment provided: See below Diagnostics interpreted by me: ECG: Sinus rhythm at a 95 Normal axis No PVCs T wave inversions in septal leads QTC 412 Cardiac Monitoring: An order was placed for continuous cardiac monitoring. The monitor shows a rate of 92 with sinus rhythm. Laboratory studies: As stated above and show below. Imaging studies: Portable AP upright 1 view the chest was unremarkable CT angio of the chest was negative Consultation(s): Discussed the case with Dr. Nelson for further evaluation Procedures: none Critical Care: None Past Med/Surg History Medical History (Updated 10/10/21 @ 21:42 by Elmer Augustine DO) Anxiety Bronchitis hx Degenerative disc disease Depression Diabetes mellitus, type II Dysphagia Falls frequently d/t drop foot Fibromyalgia Foot drop RIGHT GERD (gastroesophageal reflux disease) History of esophageal stricture Hyperlipidemia Hypothyroidism Migraine HX Osteoarthritis Peptic ulcer disease HX Peripheral neuropathy BILATERAL FEET Sinus infection hx Temporomandibular joint disorder MILD. CLICKS BUT NEVER LOCKED. Transient ischemic attack (TIA) treated in patient at [facility] 05/05/19-05/06/19. placed on Plavix & ASA Weight loss, unintentional Surgical History H/O cervical discectomy with a cage (done at [facility]) Full ROM. History of breast biopsy MULITPLE ON BILATERAL BREASTS History of cholecystectomy History of esophageal dilatation History of laminectomy LUMBAR AREA X2 Hx of gastric bypass Hx of lumpectomy (-) RIGHT BREAST S/P insertion of spinal cord stimulator [facility]. Turns it off for surgery - has remote. S/P ANSHU-BSO Status post surgery right leg nerve decompression for foot drop Family History Family/Other Family hx of colon cancer Father Family history of diabetes mellitus Grandmother (Maternal) Family history of diabetes mellitus Other No family history of adverse response to anesthesia Social History Smoking Status: Current every day smoker Cigarettes Per Day: 5; Second Hand Exposure: Yes; Hx Alcohol Use: No Hx Substance Use: Yes Preferred Language: Liberian Communication Ability: Effective Street Worker Required: No Beliefs That Will Affect Care: None marital status: Current Living Situation: Family Feels Safe at Home: Yes Assistive Devices: Cane, Denture - Upper, Glasses and Walker Allergies Allergies Allergy/AdvReac Type Severity Reaction Status Date / Time Iodinated Contrast Media Allergy Severe ANAPHYLAXIS Verified 10/10/21 21:23 omeprazole Allergy Severe ANAPHYLAXIS Verified 10/10/21 21:23 peanut Allergy Intermediate LIPS SWELL Verified 10/10/21 21:23 FROM PEANUT SHELL DUST povidone-iodine Allergy Intermediate blisters Verified 10/10/21 21:23 [From Betadine] erythromycin base AdvReac Intermediate GI UPSET Verified 10/10/21 21:23 Home Meds Home Medications Medication Instructions Recorded Confirmed apixaban 5 mg tablet (Eliquis) 10 tab PO DAILY 10/10/21 10/10/21 buprenorphine HCl 8 mg sublingual 1 tab sublingual BID 10/10/21 10/10/21 tablet cyclobenzaprine 10 mg tablet 1 tab PO BID PRN Muscle Pain 10/10/21 10/10/21 ergocalciferol (vitamin D2) 1,250 1 cap PO 2XWK 10/10/21 10/10/21 mcg (50,000 unit) capsule furosemide 40 mg tablet 1 tab PO DAILY edema 10/10/21 10/10/21 levothyroxine 75 mcg tablet 1 tab PO DAILY 10/10/21 10/10/21 (Synthroid) mirtazapine 30 mg tablet 1 tab PO HS 10/10/21 10/10/21 multivitamin with minerals-folic 1 tab PO DAILY 10/10/21 10/10/21 acid 200 mcg chewable tablet ondansetron HCl 8 mg tablet 8 tab PO BID PRN Nausea 10/10/21 10/10/21 pantoprazole 40 mg tablet,delayed 1 tab PO BID 10/10/21 10/10/21 release spironolactone 100 mg tablet 1 tab PO DAILY PRN Edema 10/10/21 10/10/21 sucralfate 100 mg/mL oral 10 ml PO QID functional dyspepsia 10/10/21 10/10/21 suspension Results & Data (ED) Vital Signs Vital Signs - 24 hr 10/10/21 16:47 10/10/21 21:00 Temperature 37.0 C Temperature Source Temporal Artery Scan Pulse Rate 117 H Respiratory Rate 18 Respiratory Effort / Characteristics Non-Labored Non-Labored Respiratory Depth Normal Normal Blood Pressure 139/97 Blood Pressure Mean 111 Blood Pressure Position Sitting Pulse Oximetry 95 Oxygen Delivery Method Room Air Sepsis Recent Fever Within 48 Hours No Sepsis New/Unexplained Change in Mental Status N/A Sepsis Action Taken by Nursing No Action Required Laboratory Data Result diagrams: 10/10/21 16:09 10/10/21 16:09 Lab Results 10/10/21 10/10/21 10/10/21 Range/Units 16:09 16:09 16:09 WBC 9.09 (4.8-10.8) K/ul RBC 5.09 (3.93-5.22) M/uL Hgb 15.0 (12.0-16.0) g/dl Hct 46.2 H (34.1-44.9) % MCV 90.8 (80.0-100.0) fL MCH 29.5 (25.0-34.0) pg MCHC 32.5 (32.0-36.0) g/dL RDW Std Deviation 49.0 H (36.4-46.3) fL RDW Coeff of Lionel 14.6 H (11.5-14.5) % Plt Count 318 (130-400) K/uL MPV 11.0 (9.4-12.3) fL Immature Gran % (Auto) 0.2 % Neut % (Auto) 59.4 % Lymph % (Auto) 32.3 % Butts % (Auto) 7.3 % Eos % (Auto) 0.4 % Baso % (Auto) 0.4 % Neut # (Auto) 5.39 (1.4-6.5) K/uL Lymph # (Auto) 2.94 (1.2-3.4) K/uL Butts # (Auto) 0.66 (0.24-0.82) K/uL Eos # (Auto) 0.04 (0-0.50) K/uL Baso # (Auto) 0.04 (0-0.2) K/uL Immature Gran # (Auto) 0.02 (0.00-0.02) K/uL PT 10.4 (9.0-12.0) Seconds INR 1.0 (0.9-1.1) APTT 27.2 (21.0-31.0) Seconds PTT Ratio 1.0 Sodium 139 (136-145) mmol/L Potassium 3.8 (3.5-5.1) mmol/L Chloride 104 (98-107) mmol/L Carbon Dioxide 30 (21-32) mmol/L Anion Gap 5 (3-11) BUN 13 (6-23) mg/dl Creatinine 1.10 (0.6-1.2) mg/dl Est Cr Clr Drug Dosing 47.4 ml/min Est GFR ( Amer) 66.4 ml/min Est GFR (Non-Af Amer) 57.3 ml/min BUN/Creatinine Ratio 11.8 (10-20) Glucose 101 H (70-99(Fasting)) mg/dl Calcium 8.4 L (8.5-10.1) mg/dl Total Bilirubin 0.5 (0.2-1.0) mg/dl AST 23 (13-39) U/L ALT 12 (7-52) U/L Alkaline Phosphatase 152 H (34-104) U/L Troponin I High Sens 5.5 (0-14) pg/ml Total Protein 6.4 (6.0-8.3) gm/dl Albumin 3.0 L (3.4-5.0) gm/dl Globulin 3.4 (2.5-4.0) gm/dl Albumin/Globulin Ratio 0.9 (0.9-2) Lipase 20 (11-82) U/L TSH (0.300-4.500) uIu/ml SARS-CoV-2, RNA, NAAT (NEGATIVE) 10/10/21 10/10/21 Range/Units 16:09 20:43 WBC (4.8-10.8) K/ul RBC (3.93-5.22) M/uL Hgb (12.0-16.0) g/dl Hct (34.1-44.9) % MCV (80.0-100.0) fL MCH (25.0-34.0) pg MCHC (32.0-36.0) g/dL RDW Std Deviation (36.4-46.3) fL RDW Coeff of Lionel (11.5-14.5) % Plt Count (130-400) K/uL MPV (9.4-12.3) fL Immature Gran % (Auto) % Neut % (Auto) % Lymph % (Auto) % Butts % (Auto) % Eos % (Auto) % Baso % (Auto) % Neut # (Auto) (1.4-6.5) K/uL Lymph # (Auto) (1.2-3.4) K/uL Butts # (Auto) (0.24-0.82) K/uL Eos # (Auto) (0-0.50) K/uL Baso # (Auto) (0-0.2) K/uL Immature Gran # (Auto) (0.00-0.02) K/uL PT (9.0-12.0) Seconds INR (0.9-1.1) APTT (21.0-31.0) Seconds PTT Ratio Sodium (136-145) mmol/L Potassium (3.5-5.1) mmol/L Chloride (98-107) mmol/L Carbon Dioxide (21-32) mmol/L Anion Gap (3-11) BUN (6-23) mg/dl Creatinine (0.6-1.2) mg/dl Est Cr Clr Drug Dosing ml/min Est GFR ( Amer) ml/min Est GFR (Non-Af Amer) ml/min BUN/Creatinine Ratio (10-20) Glucose (70-99(Fasting)) mg/dl Calcium (8.5-10.1) mg/dl Total Bilirubin (0.2-1.0) mg/dl AST (13-39) U/L ALT (7-52) U/L Alkaline Phosphatase (34-104) U/L Troponin I High Sens (0-14) pg/ml Total Protein (6.0-8.3) gm/dl Albumin (3.4-5.0) gm/dl Globulin (2.5-4.0) gm/dl Albumin/Globulin Ratio (0.9-2) Lipase (11-82) U/L TSH 0.367 (0.300-4.500) uIu/ml SARS-CoV-2, RNA, NAAT NEGATIVE (NEGATIVE) Administered Medications Discontinued Medications Acetaminophen (Acetaminophen 325 Mg Tab) 650 mg PO NOW STA Stop: 10/10/21 21:10 Last Admin: 10/10/21 21:35 Dose: 650 mg Documented By: SU Diphenhydramine HCl (Diphenhydramine 50 Mg/Ml Vial) 50 mg IV NOW STA Stop: 10/10/21 16:52 Last Admin: 10/10/21 18:01 Dose: 50 mg Documented By: DOUG Sodium Chloride (Nss 1000ml) 250 mls @ 999 mls/hr IV .Q16M ONE Stop: 10/10/21 17:06 Last Admin: 10/10/21 18:01 Dose: 999 mls/hr Documented By: DOUG Sodium Chloride (Nss 1000ml) 2,000 mls @ 999 mls/hr IV .Q2H1M ONE Stop: 10/10/21 21:08 Last Admin: 10/10/21 20:11 Dose: 999 mls/hr Documented By: RONALD Ioversol (Optiray 320 125ml) 120 ml IV ONCE ONE Stop: 10/10/21 19:29 Last Admin: 10/10/21 19:28 Dose: 120 ml Documented By: EDEN Methylprednisolone (Methylprednisolone 125 Mg/2 Ml Vial) 125 mg IV NOW STA Stop: 10/10/21 16:52 Last Admin: 10/10/21 18:01 Dose: 125 mg Documented By: DOUG Ondansetron HCl (Ondansetron Inj 2 Mg/Ml 2 Ml Vial) 4 mg IV NOW STA Stop: 10/10/21 19:53 Last Admin: 10/10/21 20:11 Dose: 4 mg Documented By: RONALD Imaging Data Radiologist's Impression: Chest CTA 10/10/21 16:49 CT angio chest PE protocol CLINICAL HISTORY: Chest Pain, eval for PE, recent DVT TECHNIQUE: Multidetector row helical CT of the chest was performed with angiographic protocol. Coronal and sagittal reformations were obtained. Coronal and sagittal MIPS were obtained from the axial data set and were submitted for review. Automated dose lowering techniques and/or adjustment according to patient size were utilized for this exam. CT DOSE: 267.56 mGy.cm Comparison: None available at the time of this dictation. FINDINGS: Lungs and pleura: Normal. Heart and pericardium: Heart size is normal. No pericardial effusion. Vessels: No evidence of pulmonary embolism. Mediastinum and melisa: Unremarkable. Chest wall and lower neck: Unremarkable. Abdomen: Partial visualization of gastric bypass surgery. Bones: Degenerative changes in the thoracic spine. Anterior cervical fixation hardware is seen. A spinal stimulator is seen. IMPRESSION: No evidence of pulmonary embolism. ACT 112: Negative or not required by law. Electronically signed by: Will Carey M.D. 10/10/2021 8:01 PM Chest X-Ray 10/10/21 16:49 XR chest 1V portable CLINICAL HISTORY: Chest Pain TECHNIQUE: Single frontal radiograph of the chest was obtained. Comparison: Comparison is made to chest radiograph 05/05/2020 FINDINGS: Spinal stimulator is noted. Anterior cervical fixation hardware is seen. Calcified aortic knob is seen. The lungs are clear. No evidence of pleural effusion or pneumothorax. IMPRESSION: No acute chest disease. ACT 112: Negative or not required by law. Electronically signed by: Will Carey M.D. 10/10/2021 6:55 PM Discharge Plan Visit Data Chief Complaint: Referred by Doctor Stated Complaint: PULMONARY EMBOLISM. DR MACK ED Provider: Elmer Augustine Discharge Problem: Chest pain, Shortness of breath Forms Stand Alone Forms: [facility] Prescriptions Prescriptions: No Action sucralfate 100 mg/mL suspension 10 ml PO QID Rx Instructions: did not start yet ergocalciferol (vitamin D2) 1,250 mcg (50,000 unit) capsule 1 cap PO 2XWK buprenorphine HCl 8 mg tablet, sublingual 1 tab SUBLINGUAL BID Eliquis 5 mg tablet 10 tab PO DAILY Rx Instructions: Patient states she is ordered to start 5 mg a day [place] cyclobenzaprine 10 mg tablet 1 tab PO BID PRN (Reason: Muscle Pain) furosemide 40 mg tablet 1 tab PO DAILY ondansetron HCl 8 mg tablet 8 tab PO BID PRN (Reason: Nausea) spironolactone 100 mg tablet 1 tab PO DAILY PRN (Reason: Edema) levothyroxine [Synthroid] 75 mcg tablet 1 tab PO DAILY pantoprazole 40 mg tablet,delayed release (DR/EC) 1 tab PO BID mirtazapine 30 mg tablet 1 tab PO HS One Daily Gummy Vites 200 mcg Tablet,Chewable 1 tab PO DAILY Referrals Referrals: Ishaan Pepe MD [Primary Care Provider] -
[2021-10-10] MEDS ORDERED: OPTIRAY 320 125ml IV ONE (19:28)
[2021-10-10] MEDS ORDERED: ONDANSETRON INJ 2 MG/ML 2 ML VIAL IV STA ×2 (19:52→22:34)
--- NOTE | 2021-10-10 20:04 | CT Scan Report ---
CT angio chest PE protocol CLINICAL HISTORY: Chest Pain, eval for PE, recent DVT TECHNIQUE: Multidetector row helical CT of the chest was performed with angiographic protocol. Monzon l and sagittal reformations were obtained. Coronal and sagittal MIPS were obtained from the axial duarte a set and were submitted for review. Automated dose lowering techniques and/or adjustment according to patient size were utilized for this exam. CT DOSE: 267.56 mGy.cm Comparison: None available at the time of this dictation. FINDINGS: Lungs and pleura: Normal. Heart and pericardium: Heart size is normal. No pericardial effusion. Vessels: No evidence of pulmonary embolism. Mediastinum and melisa: Unremarkable. Chest wall and lower neck: Unremarkable. Abdomen: Partial visualization of gastric bypass surgery. Bones: Degenerative changes in the thoracic spine. Anterior cervical fixation hardware is seen. A spi nal stimulator is seen. IMPRESSION: No evidence of pulmonary embolism. ACT 112: Negative or not required by law. Electronically signed by: Will Carey M.D. 10/10/2021 8:01 PM
[2021-10-10] MEDS: ACETAMINOPHEN 325 MG TAB PO STA (21:35)
--- NOTE | 2021-10-11 00:12 | History and Physical Report ---
DATE OF ADMISSION: 10/10/2021. CHIEF COMPLAINT: Chest pain. HISTORY OF PRESENT ILLNESS: A 55-year-old female with past medical history significant for hypothyroidism, hyperlipidemia, chronic hyperventilation syndrome, COPD, cirrhosis of liver without ascites, status post gastric bypass surgery, stricture of esophagus, the patient states recently it was dilated, moderate protein calorie malnutrition, GERD, fibromyalgia, peroneal palsy on right side, idiopathic peripheral neuropathy, opioid dependence, thoracic and lumbosacral neuritis, recurrent depression, post-laminectomy syndrome, ongoing tobacco abuse, history of TIA. The patient recently had been diagnosed with DVT and was started on Eliquis. Presents with chest heaviness. The patient states it is going on for a couple of weeks, sometimes on and off, sometimes starts with ambulation, sometimes not. It is mostly in the upper belly region, but because of recent diagnosis of DVT, was advised to come to the ER to rule out PE, but on CTA chest done in ER and was no PE. EKG, no acute findings. Troponin is negative. The patient got admitted to rule out chest pain. The patient is also having a lot of nausea, it is going on for some time. The patient is on Protonix and sucralfate. Has some headache now. No blurred visions, no runny nose, no sore throat, no cough, no fever, no chills. No shortness of breath, no diarrhea or constipation. Normal bladder movements. Currently, resting comfortably and hemodynamically stable. ALLERGIES: IODINATED CONTRAST MEDIA, OMEPRAZOLE, PEANUT, POVIDINE, ERYTHROMYCIN BASE. PAST MEDICAL HISTORY: As mentioned above. PAST SURGICAL HISTORY: Right breast lesion excision benign, left breast lesion excision, colonoscopy, EGDs, EGD with transendoscopic dilatation, EGD with endoscopic ultrasound, neurostimulator pulse generator, percutaneous implantation of neurostimulator epidural, breast surgery x2, back surgery x2, laparoscopic procedure of the liver, laparoscopic gastric bypass surgery, lumbar hemilaminectomy, neuroplasty, appendectomy, removal of ovaries, tonsillectomy, cholecystectomy, repair of incisional hernia, total abdominal hysterectomy with removal of tubes. MEDICATIONS: The patient is on Eliquis 5 mg p.o. b.i.d., buprenorphine 1 tablet sublingual b.i.d., cyclobenzaprine 1 tablet p.o. b.i.d. p.r.n., vitamin D one capsule 2 times a week, Lasix, levothyroxine 75 mcg p.o. daily, mirtazapine 30 mg p.o. at bedtime, Protonix 40 mg p.o. b.i.d., sucralfate 10 mL p.o. q.i.d. FAMILY HISTORY: Significant for maternal aunt has breast cancer, maternal grandfather had breast cancer, mother has pancreatic cancer; father has diabetes and hypertension; maternal grandmother has diabetes, daughter has mental disorder. SOCIAL HISTORY: . Smoked half pack a day for 35 years. No alcohol use. No drug use. REVIEW OF SYSTEMS: As per HPI. Rest of review of systems is negative. PHYSICAL EXAMINATION: GENERAL: The patient is of moderate build, not in acute distress. VITAL SIGNS: Temperature 37, pulse 117, respiratory rate 18, blood pressure 139/97, oxygen 95% on room air. HEENT: Pupils equal, round and reactive to light. Oral mucosa moist. NECK: No JVD, no neck masses. CARDIOVASCULAR: S1 and S2 heard. Regular rate and rhythm. No murmur, no gallop. RESPIRATORY SYSTEM: Normal AP diameter. No accessory muscle use. No wheezing, no crackles. ABDOMEN: Soft, bowel sounds present. Epigastric tenderness present. No guarding, no rigidity, no distention. CENTRAL NERVOUS SYSTEM: Cranial nerves II-XII grossly intact, nonfocal. EXTREMITIES: No edema, no erythema. LABORATORY DATA: WBC 9.09, hemoglobin 15, hematocrit 46.2, platelets 318. PT 10.4, INR 1, APTT 27.2. Sodium 139, potassium 3.8, chloride 104, bicarbonate 30, BUN 13, creatinine 1.1, serum glucose 101, calcium 8.4, total bilirubin 0.5, AST 23, ALT 12, alkaline phosphatase 152. Troponin 1 high sensitivity 5.5. Lipase 20. TSH 0.3. SARS-CoV-2 rapid test negative. IMAGING DATA: Chest x-ray, no acute findings. CTA chest, no PE. EKG: Normal sinus rhythm at a rate of 95, no acute ST changes seen. No significant changes. ASSESSMENT AND PLAN: A 55-year-old female who presents with chest heaviness. 1. Chest heaviness: Rule out acute coronary syndrome. Initial workup negative. The patient recently has deep venous thrombosis, but on CTA chest no pulmonary embolism. Will follow serial enzymes, echo, n.p.o., and consult cardiology in the a.m. for further recommendation. 2. History of deep venous thrombosis: Continue her Eliquis. Follow up with PCP for duration of Eliquis. 3. History of hypothyroidism: Continue Synthroid. 4. History of depression: Continue Remeron. 5. Gastroesophageal reflux disease, history of stricture of esophagus. Status post dilatation. Continue her Protonix. The patient also has some epigastric tenderness, on Protonix, sucralfate, and follow with GI. Status post gastric bypass surgery. 6. Deep venous thrombosis prophylaxis: Sequential compression devices for now. DISPOSITION: Admit to [facility]. PT/OT prior to discharge. Social service to help with discharge planning. Job ID: [id number] [id number]
[2021-10-11] MEDS ORDERED: CYCLOBENZAPRINE HCL 10 MG TAB PO PRN (00:43)
[2021-10-11] MEDS ORDERED: MIRTAZAPINE TAB 15 MG TAB PO SCH (00:43)
[2021-10-11] MEDS ORDERED: ACETAMINOPHEN 325 MG TAB PO PRN (00:43)
[2021-10-11] MEDS ORDERED: ONDANSETRON INJ 2 MG/ML 2 ML VIAL IV PRN (00:43)
[2021-10-11] MEDS ORDERED: NITROGLYCERIN SL 0.4 MG/TAB TAB SL PRN (00:43)
[2021-10-11] MEDS ORDERED: MoRPHine SULFATE 4 MG/ML 1 ML CARP\\VIAL IV STA (00:56)
[2021-10-11] MEDS: ACETAMINOPHEN 325 MG TAB PO STA (01:12)
[2021-10-11] MEDS: APIXABAN 5 MG TABLET PO SCH ×2 (01:12→09:38)
[2021-10-11 06:27] LABS: Hematocrit (blood only) 36.5 % (34.1-44.9); Hemoglobin 12.1 g/dl (12.0-16.0); Immature Granulocytes # (auto) 0.01 K/uL (0.00-0.02); Immature Granulocytes % (auto) 0.2 %; Lymphocytes % (auto) 24.5 %; Mean Corpuscular Hemoglobin 29.3 pg (25.0-34.0); Mean Corpuscular Hgb Conc 33.2 g/dL (32.0-36.0); Mean Corpuscular Volume 88.4 fL (80.0-100.0); Mean Platelet Volume 11.1 fL (9.4-12.3); Monocytes # (auto) 0.15 K/uL (0.24-0.82); Monocytes % (auto) 3.3 %; Neutrophils # (auto) 3.23 K/uL (1.4-6.5); Platelet Count 233 K/uL (130-400); RDW Coefficient of Variation 14.4 % (11.5-14.5); RDW Standard Deviation 46.5 fL (36.4-46.3); Red Blood Count 4.13 M/uL (3.93-5.22); White Blood Count 4.49 K/ul (4.8-10.8)
[2021-10-11] MEDS ORDERED: LEVOTHYROXINE SODIUM 75 MCG TABLET PO SCH (06:30)
[2021-10-11 07:07] LABS: BUN Creatinine Ratio 14.3 (10-20); Calcium 7.6 mg/dl (8.5-10.1); Creatinine Clr Calc Pharmacy 64.3 ml/min; Est GFR (Non-African American) 79.3 ml/min; Magnesium 1.9 mg/dl (1.7-2.4); Potassium 3.8 mmol/L (3.5-5.1); Troponin I High Sensitivity 16.7 pg/ml (0-14)
[2021-10-11] MEDS ORDERED: PANTOprazole 40 MG TAB PO SCH (09:00)
[2021-10-11] MEDS ORDERED: MULTIVITAMIN TAB PO SCH (09:00)
[2021-10-11] MEDS: SUCRALFATE 1 GM/10 ML UDC PO SCH ×3 (09:38→12:25)
[2021-10-11] MEDS: buprenorphine HCL 8 MG SUBL SL SCH ×2 (09:39→10:05)
--- NOTE | 2021-10-11 11:07 | Cardiology Consultation ---
Date of Consultation October 11, 2021 Assessment & Plan (1) Chest discomfort: (2) Epigastric discomfort: (3) Tibial vein thrombosis: Plan 55-year-old female presented to the emergency department per direction of her primary care provider due to possible hypoxia. Reports atypical epigastric and lower substernal chest discomfort. Symptoms are atypical for angina. High- sensitivity troponin minimally elevated at 16. She is currently pain-free. No dysrhythmia on telemetry. ECG without evidence of ischemic changes. Recommend dobutamine stress echocardiography for further restratification. Patient agreeable. History of Present Illness Reason for Consultation: chest pain Requesting Physician: Dr. Mckenna Attending Physician: Eleuterio Mckenna MD History of Present Illness 55-year-old female referred to the emergency department by her primary care provider due to reported low oxygen saturation per home monitor. Recently diagnosed with a right lower extremity DVT and prescribed Eliquis. CTA was performed on admission without evidence of pulmonary embolus. Describes epigastric discomfort which is sporadic, at times associated with exertion and nausea. Denies chest heaviness or tightness although the discomfort in her epigastric region at times feels tight. History of gastric bypass surgery. Denies any vomiting, or hematemesis. Denies history of coronary disease, congestive heart failure, diabetes, or rheumatic fever as a child. Reports history of palpitations. Last summer a Ziehl monitor was performed demonstrating symptoms correlating with sinus tachycardia. There were 2 short asymptomatic salvos of supraventricular tachycardia recorded. Prescribed low- dose Toprol-XL, 12.5 mg daily, however, she has not taken medication in nearly 6 months. Previously evaluated in the cardiology clinic for preoperative or stratification prior to gastric bypass surgery in 2018. Exercise stress echo performed at that time negative for inducible ischemia. Allergies Allergy/AdvReac Type Severity Reaction Status Date / Time Iodinated Contrast Media Allergy Severe ANAPHYLAXIS Verified 10/10/21 21:23 omeprazole Allergy Severe ANAPHYLAXIS Verified 10/10/21 21:23 peanut Allergy Intermediate LIPS SWELL Verified 10/10/21 21:23 FROM PEANUT SHELL DUST povidone-iodine Allergy Intermediate blisters Verified 10/10/21 21:23 [From Betadine] erythromycin base AdvReac Intermediate GI UPSET Verified 10/10/21 21:23 Home Medications Medication Instructions Recorded Confirmed Type apixaban 5 mg tablet (Eliquis) 5 mg PO BID 10/10/21 10/10/21 History buprenorphine HCl 8 mg sublingual 1 tab sublingual BID 10/10/21 10/10/21 History tablet cyclobenzaprine 10 mg tablet 1 tab PO BID PRN Muscle Pain 10/10/21 10/10/21 History ergocalciferol (vitamin D2) 1,250 1 cap PO 2XWK 10/10/21 10/10/21 History mcg (50,000 unit) capsule furosemide 40 mg tablet 1 tab PO DAILY edema 10/10/21 10/10/21 History levothyroxine 75 mcg tablet 1 tab PO DAILY 10/10/21 10/10/21 History (Synthroid) mirtazapine 30 mg tablet 1 tab PO HS 10/10/21 10/10/21 History multivitamin with minerals-folic 1 tab PO DAILY 10/10/21 10/10/21 History acid 200 mcg chewable tablet ondansetron HCl 8 mg tablet 8 tab PO BID PRN Nausea 10/10/21 10/10/21 History pantoprazole 40 mg tablet,delayed 1 tab PO BID 10/10/21 10/10/21 History release spironolactone 100 mg tablet 1 tab PO DAILY PRN Edema 10/10/21 10/10/21 History sucralfate 100 mg/mL oral 10 ml PO QID functional dyspepsia 10/10/21 10/10/21 History suspension Patient History Medical History (Updated 10/11/21 @ 11:06 by Fabricio Dash DO) Anxiety Bronchitis hx Degenerative disc disease Depression Diabetes mellitus, type II Dysphagia Falls frequently d/t drop foot Fibromyalgia Foot drop RIGHT GERD (gastroesophageal reflux disease) History of esophageal stricture Hyperlipidemia Hypothyroidism Migraine HX Osteoarthritis Peptic ulcer disease HX Peripheral neuropathy BILATERAL FEET Sinus infection hx Temporomandibular joint disorder MILD. CLICKS BUT NEVER LOCKED. Transient ischemic attack (TIA) treated in patient at [facility] 05/05/19-05/06/19. placed on Plavix & ASA Weight loss, unintentional Surgical History H/O cervical discectomy with a cage (done at [facility]) Full ROM. History of breast biopsy MULITPLE ON BILATERAL BREASTS History of cholecystectomy History of esophageal dilatation History of laminectomy LUMBAR AREA X2 Hx of gastric bypass Hx of lumpectomy (-) RIGHT BREAST S/P insertion of spinal cord stimulator [facility]. Turns it off for surgery - has remote. S/P ANSHU-BSO Status post surgery right leg nerve decompression for foot drop Family History Family/Other Family hx of colon cancer Father Family history of diabetes mellitus Grandmother (Maternal) Family history of diabetes mellitus Other No family history of adverse response to anesthesia Social History Smoking Status: Current every day smoker Cigarettes Per Day: 10; Second Hand Exposure: No; Do You Dip or Chew Tobacco: No; Tobacco Cessation Education Requested by Patient: No Hx Alcohol Use: No Hx Substance Use: No Preferred Language: Swedish Communication Ability: Effective Assistant Hairstylist Required: No Beliefs That Will Affect Care: None marital status: Current Living Situation: Spouse Current Living Situation Comment: Spouse and 2 children Other Information That Helps Us Care for You: No Feels Safe at Home: Yes Safety Concerns: Feels Safe At This Time Assistive Devices: Denture - Upper, Denture - Lower and Glasses Review of Systems Review of Systems: All systems reviewed & are unremarkable except as noted in Subjective Physical Exam Constitutional: well nourished; no acute distress and not ill appearing Respiratory: no respiratory distress, no labored breathing and no retractions Auscultation: no crackles, no rales, no rhonchi and no wheezes Cardiovascular: Rate/Rhythm: regular rate and regular rhythm Heart Sounds: normal S1 and normal S2; no murmur Vessels: radial pulses present; no JVD and no carotid bruit Extremities: + edema (1+ left lower extremity edema) Gastrointestinal (Abdomen): Inspection/Auscultation: abdomen normal to inspection and normal bowel sounds; abdomen not distended Percussion/Palpation: + abdomen tender (+ Epigastric tenderness to palpation) and abdomen soft; no guarding and abdomen not rigid Neurologic: CN's II-XI intact bilaterally and moves all extremities; no focal motor deficits Motor/Sensory: no tremor Psychiatric: A+Ox3, euthymic affect Results & Data ([facility]) Vital Signs (Past 12 Hours) Vital Signs Temp Pulse Pulse Resp BP BP Pulse Ox 10/11/21 08:19 67 10/11/21 07:55 36.5 C 68 16 112/76 96 10/11/21 03:19 36.7 C 80 20 117/79 94 10/11/21 02:04 100 H 10/11/21 01:27 36.6 C 90 18 129/89 96 10/11/21 00:43 36.6 C 90 18 129/89 96 10/11/21 00:37 82 18 132/79 98 10/10/21 23:00 80 96 O2 Del Method 10/11/21 08:19 10/11/21 07:55 Room Air 10/11/21 03:19 Room Air 10/11/21 02:04 10/11/21 01:27 Room Air 10/11/21 00:43 Room Air 10/11/21 00:37 Room Air 10/10/21 23:00 Room Air
[2021-10-11] MEDS ORDERED: ATROPINE SULFATE 0.1 MG/ML 10ML SYR IV ONE (11:38)
[2021-10-11] MEDS ORDERED: METOPROLOL TARTRATE 1 MG/ML VIAL IV ONE (11:38)
[2021-10-11] MEDS ORDERED: DOBUTamine HCL 12.5 MG/ML 20 ML VIAL IV ONE (11:38)
[2021-10-11] MEDS ORDERED: BUTALBITAL/ACETAMIN/CAFFEINE TAB PO STA (12:31)
--- NOTE | 2021-10-11 14:34 | Discharge Summary ---
Date of Service October 11, 2021 Admission HPI Per Admitting Provider DATE OF ADMISSION: 10/10/2021. CHIEF COMPLAINT: Chest pain. HISTORY OF PRESENT ILLNESS: A 55-year-old female with past medical history significant for hypothyroidism, hyperlipidemia, chronic hyperventilation syndrom e, COPD, cirrhosis of liver without ascites, status post gastric bypass surgery, stricture of esophagus, the patient states recently it was dilated, moderate protein calorie malnutrition, GERD, fibromyalgia, peroneal palsy on right side, idiopathic peripheral neuropathy, opioid dependence, thoracic and lumbosacral neuritis, recurrent depression, post-laminectomy syndrome, ongoing tobacco abuse, history of TIA. The patient recently had been diagnosed with DVT and was started on Eliquis. Presents with chest heaviness. The patient states it is going on for a couple of weeks, sometimes on and off, sometimes starts with ambulation, sometimes not. It is mostly in the upper belly region, but because of recent diagnosis of DVT, was advised to come to the ER to rule out PE, but on CTA chest done in ER and was no PE. EKG, no acute findings. Troponin is negative. The patient got admitted to rule out chest pain. The patient is also having a lot of nausea, it is going on for some time. The patient is on Protonix and sucralfate. Has some headache now. No blurred visions, no runny nose, no sore throat, no cough, no fever, no chills. No shortness of breath, no diarrhea or constipation. Normal bladder movements. Currently, resting comfortably and hemodynamically stable. ALLERGIES: IODINATED CONTRAST MEDIA, OMEPRAZOLE, PEANUT, POVIDINE, ERYTHROMYCIN BASE. PAST MEDICAL HISTORY: As mentioned above. PAST SURGICAL HISTORY: Right breast lesion excision benign, left breast lesion excision, colonoscopy, EGDs, EGD with transendoscopic dilatation, EGD with endoscopic ultrasound, neurostimulator pulse generator, percutaneous implantation of neurostimulator epidural, breast surgery x2, back surgery x2, laparoscopic procedure of the liver, laparoscopic gastric bypass surgery, lumbar hemilaminectomy, neuroplasty, appendectomy, removal of ovaries, tonsillectomy, cholecystectomy, repair of incisional hernia, total abdominal hysterectomy with removal of tubes. MEDICATIONS: The patient is on Eliquis 5 mg p.o. b.i.d., buprenorphine 1 tablet sublingual b.i.d., cyclobenzaprine 1 tablet p.o. b.i.d. p.r.n., vitamin D one capsule 2 times a week, Lasix, levothyroxine 75 mcg p.o. daily, mirtazapine 30 mg p.o. at bedtime, Protonix 40 mg p.o. b.i.d., sucralfate 10 mL p.o. q.i.d. FAMILY HISTORY: Significant for maternal aunt has breast cancer, maternal grandfather had breast cancer, mother has pancreatic cancer; father has diabetes and hypertension; maternal grandmother has diabetes, daughter has mental disorder. SOCIAL HISTORY: . Smoked half pack a day for 35 years. No alcohol use. No drug use. REVIEW OF SYSTEMS: As per HPI. Rest of review of systems is negative. Admission Exam Per Admitting Provider GENERAL: The patient is of moderate build, not in acute distress. VITAL SIGNS: Temperature 37, pulse 117, respiratory rate 18, blood pressure 139/97, oxygen 95% on room air. HEENT: Pupils equal, round and reactive to light. Oral mucosa moist. NECK: No JVD, no neck masses. CARDIOVASCULAR: S1 and S2 heard. Regular rate and rhythm. No murmur, no gallop. RESPIRATORY SYSTEM: Normal AP diameter. No accessory muscle use. No wheezing, no crackles. ABDOMEN: Soft, bowel sounds present. Epigastric tenderness present. No guarding, no rigidity, no distention. CENTRAL NERVOUS SYSTEM: Cranial nerves II-XII grossly intact, nonfocal. EXTREMITIES: No edema, no erythema. Principal Diagnosis chest pain ruled out ACS Likely acid peptic disease. Discharge Exam GENERAL: Alert and oriented x3. NAD, on RA. Looks older than her age. HEENT: No pallor, no icterus. Pupils equal, round and reactive to light. Oral mucosa moist. NECK: No JVD, no neck masses. HEART: S1 and S2 heard. Regular rate and rhythm. No murmur, no gallop. RESPIRATORY SYSTEM: Normal AP diameter. No accessory muscle use. No wheezing, no crackles. ABDOMEN: Soft, bowel sounds present, nontender, no distention. CENTRAL NERVOUS SYSTEM: No facial droop. Speech is clear. Obeys simple commands. Moves extremities. EXTREMITIES: No edema, no erythema seen. Discharge Data Allergies Allergy/AdvReac Type Severity Reaction Status Date / Time Iodinated Contrast Media Allergy Severe ANAPHYLAXIS Verified 10/10/21 21:23 omeprazole Allergy Severe ANAPHYLAXIS Verified 10/10/21 21:23 peanut Allergy Intermediate LIPS SWELL Verified 10/10/21 21:23 FROM PEANUT SHELL DUST povidone-iodine Allergy Intermediate blisters Verified 10/10/21 21:23 [From Betadine] erythromycin base AdvReac Intermediate GI UPSET Verified 10/10/21 21:23 Consultations 10/10/21 20:32 ED Decision to Admit Stat 10/11/21 08:00 Consult Cardiology Routine Ordered Studies 10/10/21 16:49 CT angio chest PE protocol Stat Hospital Course (1) Epigastric discomfort: (2) Dyspepsia: Plan 55-year-old female with PMH of hypothyroidism, HLD, chronic hyperventilation syndrome, COPD, cirrhosis of liver without ascites, status post gastric bypass surgery, stricture of esophagus was admitted 10/11 with complaint of chest pain, rule out ACS. Patient denies further chest pain while in hospital. Troponin trend not significant for cardiac origin chest pain. Patient underwent echo and stress test, both fairly WNL. Echo with ejection fraction 60 to 65%, grade 1 diastolic dysfunction. Left ventricular wall motion normal. Dobutamine stress test with no evidence for myocardial ischemia. EKG is without acute ST or T changes. Discussed with cardiology, okay to discharge from the point of view. Adding Pepcid on top of her home pantoprazole and sucralfate, patient might benefit from visiting GI doctor as an outpatient if her dyspepsia is not controlled. Patient to visit her primary care physician within 1 week time upon discharge. Patient being discharged home with following instruction at the point of discharge: Follow-up with your primary care physician within a week time. For your chest pain, you underwent stress test and was negative for any inducible ischemia. Continue to take your home sucralfate and pantoprazole as prior. Pepcid has been added, if this improves your dyspepsia then have your PCP further evaluate you for new prescription. If worsening dyspepsia, you might benefit from visit to a GI doctor as outpatient. Take your medications as prescribed. Total Time Total Time Spent Total Time Spent (In Minutes): 35 Discharge Plan Discharge Items Patient Disposition: Home - Self-Care Reason For Visit: CHEST PAIN Discharge Diagnosis: Chest pain, ruled out ACS Activity: Resume your previous activity Non-emergency contact: Primary Care Provider Call non-emergency contact if: you have any medication questions, your symptoms worsen and your temperature is above 101 Follow-up/Referrals: Kishore Regalado CRNP [Nurse Practitioner] - (Date & Time 10/15/2021 3:00 PM Provider MARK Quevedo Department Gastroenterology, [facility] ) Ishaan Pepe MD [Primary Care Provider] - (Date & Time 10/15/2021 11:00 AM Provider Irma Fry MD Department General Internal Medicine [facility] ) Diet: Heart Healthy Addtl Attending Provider Instructions: Follow-up with your primary care physician within a week time. For your chest pain, you underwent stress test and was negative for any inducible ischemia. Continue to take your home sucralfate and pantoprazole as prior. Pepcid has been added, if this improves your dyspepsia then have your PCP further evaluate you for new prescription. If worsening dyspepsia, you might benefit from visit to a GI doctor as outpatient. Take your medications as prescribed. Pending Studies at Discharge: No Stand-Alone Forms: My [facility], Smoking Cessation Medications and DC Order Prescriptions: New famotidine 20 mg tablet 20 mg PO BID 14 Days Qty: 28 0RF Continued ergocalciferol (vitamin D2) 1,250 mcg (50,000 unit) capsule 1 cap PO 2XWK buprenorphine HCl 8 mg tablet, sublingual 1 tab SUBLINGUAL BID Eliquis 5 mg tablet 5 mg PO BID Rx Instructions: Patient states she is ordered to start 5 mg a day [place] cyclobenzaprine 10 mg tablet 1 tab PO BID PRN (Reason: Muscle Pain) furosemide 40 mg tablet 1 tab PO DAILY ondansetron HCl 8 mg tablet 8 mg PO BID PRN (Reason: Nausea) spironolactone 100 mg tablet 1 tab PO DAILY PRN (Reason: Edema) levothyroxine [Synthroid] 75 mcg tablet 1 tab PO DAILY pantoprazole 40 mg tablet,delayed release (DR/EC) 1 tab PO BID mirtazapine 30 mg tablet 1 tab PO HS One Daily Gummy Vites 200 mcg Tablet,Chewable 1 tab PO DAILY sucralfate 100 mg/mL suspension 10 ml PO QID Qty: 400 0RF Rx Instructions: did not start yet Discharge Orders: Discharge Order (Routine); Ordered 10/11/21 Ordered By: Eleuterio Mckenna Admission Data Admit Date/Time: 10/10/21 22:40 Attending Provider: Eleuterio Mckenna Admit Provider: Alan Silverman Primary Care Provider: Ishaan Pepe Other Providers: Alan Silverman ; Bret Plata ; Anthony Hess ; Pj Victoria ; Fabricio Dash ; Triston Ramachandran ; Wiley Kidd ; Bhavna Catalan ; Violette Whittington ; Kathryn Grant. ; Benjamin Owens
--- NOTE | 2021-10-11 17:56 | Electrocardiogram Report ---
Test Reason : Blood Pressure : / mmHG Vent. Rate : 097 BPM Atrial Rate : 097 BPM P-R Int : 182 ms QRS Dur : 072 ms QT Int : 322 ms P-R-T Axes : 069 004 059 degrees QTc Int : 408 ms Normal sinus rhythm Left atrial enlargement Abnormal ECG When compared with ECG of 11-APR-2020 12:04, No significant change was found Confirmed by Mike Bradshaw ([id number]) on 10/11/2021 5:55:56 PM Referred By: Omega Galvin Confirmed By:Yaakov Bradshaw
--- NOTE | 2021-10-11 18:05 | Electrocardiogram Report ---
Test Reason : Blood Pressure : / mmHG Vent. Rate : 067 BPM Atrial Rate : 067 BPM P-R Int : 210 ms QRS Dur : 070 ms QT Int : 412 ms P-R-T Axes : 070 043 082 degrees QTc Int : 435 ms Sinus rhythm with 1st degree A-V block Possible Left atrial enlargement Abnormal ECG Confirmed by Mike Bradshaw ([id number]) on 10/11/2021 6:04:53 PM Referred By: Omega Galvin Confirmed By:Yaakov Bradshaw
== END 2021-10-11 16:51 | disposition home or self-care (01) ==
LOC: ED 16:31 → 2N 16:31

== ENCOUNTER 2021-12-25 22:57 | Inpatient (IN) ==
[2021-12-26 01:11] LABS: Basophils # (auto) 0.04 K/uL (0-0.2); Basophils % (auto) 0.5 %; Eosinophils # (auto) 0.02 K/uL (0-0.50); Eosinophils % (auto) 0.2 %; Hematocrit (blood only) 37.7 % (34.1-44.9); Hemoglobin 12.3 g/dl (12.0-16.0); Immature Granulocytes # (auto) 0.03 K/uL (0.00-0.02); Immature Granulocytes % (auto) 0.3 %; Lymphocytes # (auto) 3.11 K/uL (1.2-3.4); Lymphocytes % (auto) 35.8 %; Mean Corpuscular Hemoglobin 30.5 pg (25.0-34.0); Mean Corpuscular Hgb Conc 32.6 g/dL (32.0-36.0); Mean Corpuscular Volume 93.5 fL (80.0-100.0); Mean Platelet Volume 10.2 fL (9.4-12.3); Monocytes # (auto) 0.64 K/uL (0.24-0.82); Monocytes % (auto) 7.4 %; Neutrophils # (auto) 4.84 K/uL (1.4-6.5); Neutrophils % (auto) 55.8 %; Platelet Count 273 K/uL (130-400); RDW Coefficient of Variation 16.1 % (11.5-14.5); RDW Standard Deviation 55.3 fL (36.4-46.3); Red Blood Count 4.03 M/uL (3.93-5.22); White Blood Count 8.68 K/ul (4.8-10.8)
[2021-12-26 01:21] LABS: INR 1.1 (0.9-1.1); Partial Thromboplastin Time 27.3 Seconds (21.0-31.0); Prothrombin Time 12.1 Seconds (9.0-12.0)
[2021-12-26 01:44] LABS: Albumin Globulin Ratio 0.8 (0.9-2); Albumin Level 2.4 gm/dl (3.4-5.0); BUN Creatinine Ratio 15.2 (10-20); Bilirubin,Total 0.6 mg/dl (0.2-1.0); Calcium 7.5 mg/dl (8.5-10.1); Creatinine Clr Calc Pharmacy 52.9 ml/min; Est GFR (African American) 69.7 ml/min; Est GFR (Non-African American) 60.2 ml/min; Globulin 2.9 gm/dl (2.5-4.0); Magnesium 1.9 mg/dl (1.7-2.4); Potassium 2.4 mmol/L (3.5-5.1); Total Protein 5.3 gm/dl (6.0-8.3); Troponin I High Sensitivity 10.8 pg/ml (0-14)
[2021-12-26] MEDS ORDERED: POTASSIUM CHLORIDE / WTR 10 MEQ/100 ML PLCT IV ONE (01:48)
[2021-12-26] MEDS ORDERED: POTASSIUM CHLORIDE CRTAB 20 MEQ TABCR PO STA ×2 (01:48→03:49)
[2021-12-26] MEDS ORDERED: MAGNESIUM SULFATE / D5W 1 GM/100 ML BAG IV ONE (04:45)
[2021-12-26] MEDS ORDERED: FLUCONAZOLE 100 MG TAB PO ONE (04:48)
[2021-12-26] MEDS ORDERED: ACETAMINOPHEN 325 MG TAB PO PRN (04:49)
[2021-12-26] MEDS ORDERED: buprenorphine HCL 8 MG SUBL SL STA ×2 (04:49→07:10)
[2021-12-26] MEDS ORDERED: SPIRONOLACTONE 100 MG TAB PO STA (04:53)
[2021-12-26] MEDS ORDERED: ALBUMIN 25% 100 mL 25 GM/100 ML VIAL IV ONE (04:53)
[2021-12-26 05:08] LABS: Appearance Urine Clear (Clear); Bacteria Urine Automated 1+ (Negative); Bilirubin Urine Negative (Negative); Blood Urine Negative (Negative); Cast Urine Automated 0 /lpf (0-5); Color Urine Yellow; Epithelial Cell Urine Auto 0-5 /lpf (0-5); Glucose Urine UA Negative (Negative); Ketones Urine Negative (Negative); Leukocyte Esterase Urine Negative (Negative); Nitrite Urine Positive (Negative); Protein Urine Negative (Negative); RBC Urine Automated 0-4 /hpf (0-4); Specific Gravity Urine 1.009 (1.000-1.030); Urobilinogen Urine Negative (Negative); pH Urine 5.5 (4.5-7.5)
[2021-12-26] MEDS ORDERED: POTASSIUM CHLORIDE PWD 20 MEQ PACK PO STA (05:41)
[2021-12-26] MEDS ORDERED: ONDANSETRON INJ 2 MG/ML 2 ML VIAL IV STA (05:47)
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
--- NOTE | 2021-12-26 07:04 | Ultrasound Report ---
US abdomen ltd ascites CLINICAL HISTORY: abd distension TECHNIQUE: Real-time grayscale sonographic images of the abdomen were obtained. Comparison: CT abdomen pelvis 11/09/2021 FINDINGS/IMPRESSION: No ascites is noted. ACT 112: Negative or not required by law. Electronically signed by: Will Carey M.D. 12/26/2021 7:02 AM
--- NOTE | 2021-12-26 07:15 | CT Scan Report ---
HEAD CT NONCONTRAST CT DOSE: HISTORY: Headache. TECHNIQUE: Multiaxial CT images of the head were performed without the use of intravenous contrast. A utomated exposure control was utilized for this study. A dose lowering technique was utilized adheri ng to the principles of ALARA. Comparison: Head CT 05/05/2019. Findings: The paranasal sinuses and mastoid air cells are clear. The calvarium and skull base are int act. The ventricles and sulci are within normal limits. There is no mass, hematoma, midline shift, or acute infarct. Impression: No acute intracranial abnormality. ACT 112: Negative or not required by law. Electronically signed by: Tom Ba M.D. 12/26/2021 7:14 AM
--- NOTE | 2021-12-26 07:19 | CT Scan Report ---
CERVICAL SPINE CT CT DOSE: 969.31 mGy.cm HISTORY: neck pain, eliquis TECHNIQUE: Multiaxial CT images of the cervical spine were performed and reformatted in the sagittal and coronal plane without the use of contrast. A dose lowering technique was utilized adhering to th e principles of ALARA. COMPARISON: Cervical spine CT 10/24/2018.. FINDINGS: No fractures. No subluxation. Prevertebral soft tissues and the C1-C2 interval are intact. No pneumothorax. C6-C7 ACDF. The hardware appears intact. Mild central canal narrowing at C5-C6 due t o a small broad-based posterior disc osteophyte complex. IMPRESSION: No fractures within the cervical spine. ACT 112: Negative or not required by law. Electronically signed by: Tom Ba M.D. 12/26/2021 7:18 AM
[2021-12-26] MEDS ORDERED: GLUCOSE 10 TAB/TUBE PO PRN (07:51)
[2021-12-26] MEDS ORDERED: GLUCOSE 40% GEL 15 GM TUBE PO PRN (07:51)
[2021-12-26] MEDS ORDERED: GLUCAGON FOR INJ 1 MG VIAL SQ PRN (07:51)
[2021-12-26] MEDS ORDERED: DEXTROSE 50% 50 ML SYRINGE IV PRN (07:51)
[2021-12-26] MEDS ORDERED: CARBOHYDRATES FOR HYPOGLYCEMIA PO PRN (07:51)
--- NOTE | 2021-12-26 07:54 | XRay Report ---
XR chest 1V portable CLINICAL HISTORY: leg swelling TECHNIQUE: Single frontal radiograph of the chest was obtained. Comparison: Comparison is made to chest radiograph 11/09/2021 FINDINGS: Anterior cervical fixation hardware is seen. A spinal stimulator is noted. Calcified aortic knob is s een. The lungs are clear. No evidence of pleural effusion or pneumothorax. IMPRESSION: No acute chest disease. ACT 112: Negative or not required by law. Electronically signed by: Will Carey M.D. 12/26/2021 7:52 AM
[2021-12-26] MEDS ORDERED: POTASSIUM CHLORIDE PWD 20 MEQ PACK PO ONE (08:00)
[2021-12-26] MEDS ORDERED: POTASSIUM CHLORIDE CRTAB 20 MEQ TABCR PO ONE ×2 (08:34→09:45)
[2021-12-26] MEDS: INSULIN ASPART PER UNIT SC SCH ×4 (09:34→20:43)
[2021-12-26] MEDS ORDERED: PROMETHAZINE HCL 6.25 MG in SODIUM CHLORIDE 0.9% 50 ML IV PRN (13:41)
[2021-12-26] MEDS ORDERED: CYCLOBENZAPRINE HCL 10 MG TAB PO PRN (13:41)
[2021-12-26] MEDS ORDERED: cefTRIAXone SODIUM 1,000 MG in DEXTROSE 5% 50 ML IV SCH (15:00)
--- NOTE | 2021-12-26 15:45 | Communication Note ---
Date of Service: December 26, 2021 Patient is seen and examined at bedside. States having leg swelling with seepage, also reports having nausea with medications this morning. States h aving neck pain with movement and admits to having dysuria. Otherwise negative ROS. On exam patient is moderately built and nourished, no apparent distress, normocephalic/atraumatic, EOMI, decreased breath sounds, clear to auscultation, S1-S2, no murmur, abdomen soft, mildly distended, nontender, normal bowel sounds, alert, awake, oriented, grossly no focal deficits, 2+ bilateral lower extremity edema noted. Reviewed H&P, labs, imaging studies. Imaging studies noncontributory currently. Orthopedics evaluation pending. Will start on Rocephin for possible UTI. Follow-up cultures. We will replace electrolytes as needed. Will start on IV Lasix once potassium levels stabilize. Lower extremity fluid seepage likely secondary to volume overload. Continue insulin and monitor blood glucose for management of diabetes. Resume Eliquis SD once evaluated by Ortho and if no plan for procedure. PT OT, fall precautions.
[2021-12-26] MEDS: SUCRALFATE 1 GM/10 ML UDC PO SCH ×3 (16:35→20:11)
[2021-12-26] MEDS: LEVOTHYROXINE SODIUM 75 MCG TABLET PO SCH (16:55)
[2021-12-26] MEDS: CEROVITE ADV FORMULA TAB PO SCH (17:28)
[2021-12-26] MEDS: POTASSIUM CHLORIDE / WTR 10 MEQ/100 ML PLCT IV SCH ×2 (17:28→18:50)
[2021-12-26] MEDS: PANTOprazole 40 MG TAB PO SCH ×2 (17:29→20:42)
[2021-12-26] MEDS ORDERED: FLUARIX QUADRIVALENT 0.5 ML SYR IM ONE (19:23)
[2021-12-26] MEDS: buprenorphine HCL 8 MG SUBL SL SCH (20:43)
[2021-12-26] MEDS ORDERED: buprenorphine HCL 8 MG SUBL SL SCH (21:00)
[2021-12-26] MEDS ORDERED: MIRTAZAPINE TAB 15 MG TAB PO SCH (21:00)
--- NOTE | 2021-12-26 21:20 | Electrocardiogram Report ---
Test Reason : Blood Pressure : / mmHG Vent. Rate : 082 BPM Atrial Rate : 082 BPM P-R Int : 176 ms QRS Dur : 074 ms QT Int : 396 ms P-R-T Axes : 000 -09 055 degrees QTc Int : 462 ms Normal sinus rhythm Low voltage QRS Cannot rule out Anterior infarct , age undetermined Abnormal ECG When compared with ECG of 09-NOV-2021 19:30, Minimal criteria for Anterior infarct are now Present Nonspecific T wave abnormality now evident in Anterior leads Confirmed by Efraín Peters ([id number]) on 12/26/2021 9:20:26 PM Referred By: Provider Outside Confirmed By:Efraín Peters
--- NOTE | 2021-12-27 02:34 | Emergency Department Note ---
History of Present Illness General Chief complaint: Referred by Doctor Stated complaint: REFERRED BY DOCTOR,FLUID FROM BODY Time Seen by Provider: 12/25/21 23:58 History of Present Illness Maximum Pain Intensity: 4 This is a 56-year-old female presenting to the emergency department for ev aluation of bilateral lower extremity swelling and seeping of clear fluid. The patient has had worsening symptoms over the past several days and did follow-up with her family doctor. The patient has a history of Rodrigues and gastric bypass. She is on Eliquis. They increased her Lasix to 80 mg daily at the family doctor office, and the patient has reportedly been taking her medications as prescribe d. She states that her symptoms worsened tonight, and she feels more bloated and swollen than before. She has not had fevers or chills. No cough, chest pain, chest tightness, shortness of breath. She did have a fairly recent dobutamine stress echo 2 months ago that showed an ejection fraction of 60 to 60%. Her weight at her PCP appointment was 55.8 kg and on triage it is 55.5 kg. Home Medications Medication Instructions Recorded Confirmed Type apixaban 5 mg tablet (Eliquis) 5 mg PO DAILY 10/10/21 12/25/21 History buprenorphine HCl 8 mg sublingual 8 mg sublingual TID 10/10/21 12/26/21 History tablet cyclobenzaprine 10 mg tablet 10 mg PO BID PRN Muscle Spasm 10/10/21 12/25/21 History ergocalciferol (vitamin D2) 1,250 1 cap PO 2XWK 10/10/21 12/25/21 History mcg (50,000 unit) capsule furosemide 40 mg tablet 40 mg PO QAM edema 10/10/21 12/25/21 History levothyroxine 75 mcg tablet 75 mcg PO DAILY 10/10/21 12/25/21 History (Synthroid) mirtazapine 30 mg tablet 30 mg PO HS 10/10/21 12/25/21 History multivitamin with minerals-folic 1 tab PO DAILY 10/10/21 12/25/21 History acid 200 mcg chewable tablet ondansetron HCl 8 mg tablet 8 mg PO BID PRN Nausea 10/10/21 12/25/21 History pantoprazole 40 mg tablet,delayed 40 mg PO AMHS 10/10/21 12/25/21 History release spironolactone 100 mg tablet 100 mg PO DAILY PRN Edema 10/10/21 12/25/21 History sucralfate 100 mg/mL oral 10 ml PO QID functional dyspepsia 10/11/21 12/25/21 Rx suspension #400 mL cyanocobalamin (vitamin B-12) 1,000 mcg IM .EVERY 4 WEEKS 11/09/21 12/25/21 History 1,000 mcg/mL injection solution epinephrine 0.3 mg/0.3 mL 0.3 mg IM UD PRN Allergic Reaction 11/09/21 12/25/21 History injection, auto-injector Allergies Allergy/AdvReac Type Severity Reaction Status Date / Time Iodinated Contrast Media Allergy Severe ANAPHYLAXIS Verified 12/25/21 23:27 omeprazole Allergy Severe ANAPHYLAXIS Verified 12/25/21 23:27 peanut Allergy Intermediate LIPS SWELL Verified 12/25/21 23:27 FROM PEANUT SHELL DUST povidone-iodine Allergy Intermediate blisters Verified 12/25/21 23:27 [From Betadine] erythromycin base AdvReac Intermediate GI UPSET Verified 12/25/21 23:27 Past Med/Surg History Medical History (Updated 12/27/21 @ 03:03 by Anthony Deleon PA-C) Anxiety Bronchitis hx Degenerative disc disease Depression Diabetes mellitus, type II Dysphagia Falls frequently d/t drop foot Fibromyalgia Foot drop RIGHT GERD (gastroesophageal reflux disease) History of esophageal stricture Hyperlipidemia Hypothyroidism Migraine HX Osteoarthritis Peptic ulcer disease HX Peripheral neuropathy BILATERAL FEET Sinus infection hx Temporomandibular joint disorder MILD. CLICKS BUT NEVER LOCKED. Transient ischemic attack (TIA) treated in patient at [facility] 05/05/19-05/06/19. placed on Plavix & ASA Weight loss, unintentional Surgical History H/O cervical discectomy with a cage (done at [facility]) Full ROM. History of breast biopsy MULITPLE ON BILATERAL BREASTS History of cholecystectomy History of esophageal dilatation History of laminectomy LUMBAR AREA X2 Hx of gastric bypass Hx of lumpectomy (-) RIGHT BREAST S/P insertion of spinal cord stimulator [facility]. Turns it off for surgery - has remote. S/P ANSHU-BSO Status post surgery right leg nerve decompression for foot drop Family History Family/Other Family hx of colon cancer Father Family history of diabetes mellitus Grandmother (Maternal) Family history of diabetes mellitus Other No family history of adverse response to anesthesia Social History Smoking Status: Current every day smoker Tobacco Type: Cigarettes Cigarettes Per Day: 10; Second Hand Exposure: No; Hx Alcohol Use: No Hx Substance Use: Yes Last Used Substance: Days (ago) Substance Use Type Other:: CBD gummies. Preferred Language: Gibraltarian Communication Ability: Effective Engineering Consultant Required: No Beliefs That Will Affect Care: None marital status: Current Living Situation: Spouse Current Living Situation Comment: home with spouse and adopted grandchildren. Other Information That Helps Us Care for You: No Feels Safe at Home: Yes Safety Concerns: Feels Safe At This Time Assistive Devices: Glasses Review of Systems A total of 10 systems reviewed and were otherwise negative Physical Exam Vital Signs Vital Signs - 24 hr 12/26/21 03:00 12/26/21 03:23 12/26/21 04:00 Pulse Rate 77 77 73 Pulse Rate from SpO2 Sensor 78 Respiratory Rate 15 19 13 Blood Pressure 107/77 107/77 96/65 L Blood Pressure Mean 87 87 75 Pulse Oximetry 94 94 94 Oxygen Delivery Method Room Air Room Air Room Air 12/26/21 05:00 12/26/21 06:00 Pulse Rate 78 79 Pulse Rate from SpO2 Sensor Respiratory Rate 22 14 Blood Pressure 125/80 114/77 Blood Pressure Mean 95 89 Pulse Oximetry 96 95 Oxygen Delivery Method Room Air Room Air VITALS: Vitals are noted on the nurse's note and reviewed by myself. Vital signs stable. GENERAL: Well-developed, well-nourished, white female, who is in no acute distress and resting comfortably. Patient is cooperative with the examination. HEAD: Normocephalic atraumatic. HEART: Regular rate and rhythm without murmurs gallops or rubs. LUNGS: Clear to auscultation bilaterally without wheezes, rales or rhonchi. No retractions or accessory muscle use. ABDOMEN: Positive normal bowel sounds x 4. Soft, nontender, without masses or organomegaly. No guarding or rebound tenderness. No obvious ascites. MUSCULOSKELETAL: Bilateral lower extremity edema noted without erythema. No open sores are identified. There is weeping of clear watery like fluid bilaterally. NEURO: Patient was alert and oriented to person place and time. CN II through XII grossly intact. Course Administered Medications Buprenorphine HCl (Buprenorphine Hcl 8 Mg Subl) 8 mg SL TID MEGHNA Stop: 01/25/22 20:59 Last Admin: 12/26/21 20:43 Dose: 8 mg Documented By: LEOBARDO Ceftriaxone Sodium 1,000 mg/ (Dextrose) 60 mls @ 100 mls/hr IV Q24H MEGHNA; Protocol Stop: 12/31/21 14:59 Last Infusion: 12/26/21 18:18 Dose: 0 mls/hr Documented By: [id number] Admin: 12/26/21 17:28 Dose: 100 mls/hr Documented By: [id number] Insulin Aspart (Insulin Aspart Per Unit) 0 units SC ACHS MEGHNA Stop: 01/25/22 07:54 Last Admin: 12/26/21 20:43 Dose: Not Given Documented By: LEOBARDO Co-signed By: FABRICIO Admin: 12/26/21 17:08 Dose: Not Given Documented By: [id number] Admin: 12/26/21 13:21 Dose: Not Given Documented By: CHERRY Co-signed By: ISABEL Admin: 12/26/21 09:34 Dose: Not Given Documented By: JARRETT Levothyroxine Sodium (Levothyroxine Sodium 75 Mcg Tablet) 75 mcg PO DAILYBB [facility] Stop: 01/25/22 13:40 Last Admin: 12/26/21 16:55 Dose: 75 mcg Documented By: [id number] Mirtazapine (Mirtazapine Tab 15 Mg Tab) 30 mg PO HS [facility] Stop: 01/25/22 20:59 Last Admin: 12/26/21 20:10 Dose: 30 mg Documented By: LEOBARDO Multivitamins/Minerals (Cerovite Adv Formula Tab) 1 tab PO DAILY MEGHNA Stop: 01/25/22 14:59 Last Admin: 12/26/21 17:28 Dose: 1 tab Documented By: [id number] Pantoprazole Sodium (Pantoprazole 40 Mg Tab) 40 mg PO AMHS MEGHNA Stop: 01/25/22 14:59 Last Admin: 12/26/21 20:42 Dose: 40 mg Documented By: Admin: 12/26/21 17:29 Dose: 40 mg Documented By: [id number] Sucralfate (Sucralfate 1 Gm/10 Ml Udc) 1 gm PO QID MEGHNA Stop: 01/25/22 13:40 Last Admin: 12/26/21 20:11 Dose: 1 gm Documented By: Admin: 12/26/21 17:08 Dose: 1 gm Documented By: [id number] Admin: 12/26/21 16:35 Dose: Not Given Documented By: [id number] Discontinued Medications Buprenorphine HCl (Buprenorphine Hcl 8 Mg Subl) 8 mg SL NOW STA Stop: 12/26/21 07:11 Last Admin: 12/26/21 07:51 Dose: 8 mg Documented By: JARRETT Fluconazole (Fluconazole 100 Mg Tab) 200 mg PO NOW ONE Stop: 12/26/21 04:49 Last Admin: 12/26/21 05:39 Dose: 200 mg Documented By: JANUARY Potassium Chloride (K Luis / Wtr) 10 meq in 100 mls @ 100 mls/hr IV ONE ONE; Protocol Stop: 12/26/21 02:47 Last Infusion: 12/26/21 03:30 Dose: 0 mls/hr Documented By: Admin: 12/26/21 02:30 Dose: 100 mls/hr Documented By: JANUARY Magnesium Sulfate/Dextrose (Magnesium Sulfate / D5w) 1 gm in 100 mls @ 50 mls/hr IV ONE ONE Stop: 12/26/21 06:44 Last Infusion: 12/26/21 07:41 Dose: 0 mls/hr Documented By: Admin: 12/26/21 05:41 Dose: 50 mls/hr Documented By: JANUARY Albumin Human (Albumin 25% 100 Ml) 25 gm in 100 mls @ 50 mls/hr IV ONE ONE Stop: 12/26/21 06:52 Last Infusion: 12/26/21 09:53 Dose: 0 mls/hr Documented By: Admin: 12/26/21 07:53 Dose: 50 mls/hr Documented By: JARRETT Potassium Chloride (K Luis / Wtr) 10 meq in 100 mls @ 100 mls/hr IV Q1H MEGHNA Stop: 12/26/21 17:59 Last Infusion: 12/26/21 20:10 Dose: 0 mls/hr Documented By: Admin: 12/26/21 18:50 Dose: 100 mls/hr Documented By: [id number] Infusion: 12/26/21 18:28 Dose: 100 mls/hr Documented By: [id number] Admin: 12/26/21 17:28 Dose: 100 mls/hr Documented By: [id number] Ondansetron HCl (Ondansetron Inj 2 Mg/Ml 2 Ml Vial) 4 mg IV NOW STA Stop: 12/26/21 05:48 Last Admin: 12/26/21 07:20 Dose: 4 mg Documented By: JARRETT Potassium Chloride (Potassium Chloride Crtab 20 Meq Tabcr) 40 meq PO NOW STA Stop: 12/26/21 01:49 Last Admin: 12/26/21 02:23 Dose: 40 meq Documented By: DP Potassium Chloride (Potassium Chloride Crtab 20 Meq Tabcr) 40 meq PO NOW STA Stop: 12/26/21 03:50 Last Admin: 12/26/21 04:51 Dose: Not Given Documented By: JANUARY Potassium Chloride (Potassium Chloride Pwd 20 Meq Pack) 40 meq PO NOW STA Stop: 12/26/21 05:42 Last Admin: 12/26/21 07:21 Dose: 40 meq Documented By: JARRETT Potassium Chloride (Potassium Chloride Pwd 20 Meq Pack) 40 meq PO ONE ONE Stop: 12/26/21 08:01 Last Admin: 12/26/21 07:23 Dose: Not Given Documented By: JARRETT Potassium Chloride (Potassium Chloride Crtab 20 Meq Tabcr) 40 meq PO ONE ONE Stop: 12/26/21 09:46 Last Admin: 12/26/21 09:50 Dose: 40 meq Documented By: JARRETT Spironolactone (Spironolactone 100 Mg Tab) 100 mg PO NOW STA Stop: 12/26/21 04:54 Last Admin: 12/26/21 05:39 Dose: 100 mg Documented By: JANUARY Medical Decision Making Differential Diagnosis Differential diagnosis: Etiologies such as DVT, vascular ischemia, radiculopathy, fracture, hematoma/contusion, myositis, abscess, septic arthritis cellulitis, joint effusion, trauma, lymphedema, idiopathic, CHF, as well as others were entertained. Laboratory Data Result diagrams: 12/26/21 00:45 12/26/21 12:27 Lab Results 12/26/21 12/26/21 12/26/21 Range/Units 00:45 00:45 00:45 WBC 8.68 (4.8-10.8) K/ul RBC 4.03 (3.93-5.22) M/uL Hgb 12.3 (12.0-16.0) g/dl Hct 37.7 (34.1-44.9) % MCV 93.5 (80.0-100.0) fL MCH 30.5 (25.0-34.0) pg MCHC 32.6 (32.0-36.0) g/dL RDW Std Deviation 55.3 H (36.4-46.3) fL RDW Coeff of Lionel 16.1 H (11.5-14.5) % Plt Count 273 (130-400) K/uL MPV 10.2 (9.4-12.3) fL Immature Gran % (Auto) 0.3 % Neut % (Auto) 55.8 % Lymph % (Auto) 35.8 % Rogers % (Auto) 7.4 % Eos % (Auto) 0.2 % Baso % (Auto) 0.5 % Neut # (Auto) 4.84 (1.4-6.5) K/uL Lymph # (Auto) 3.11 (1.2-3.4) K/uL Rogers # (Auto) 0.64 (0.24-0.82) K/uL Eos # (Auto) 0.02 (0-0.50) K/uL Baso # (Auto) 0.04 (0-0.2) K/uL Immature Gran # (Auto) 0.03 H (0.00-0.02) K/uL PT 12.1 H (9.0-12.0) Seconds INR 1.1 (0.9-1.1) APTT 27.3 (21.0-31.0) Seconds PTT Ratio 1.0 Sodium 140 (136-145) mmol/L Potassium 2.4 L* (3.5-5.1) mmol/L Chloride 105 (98-107) mmol/L Carbon Dioxide 30 (21-32) mmol/L Anion Gap 5 (3-11) BUN 16 (6-23) mg/dl Creatinine 1.05 (0.6-1.2) mg/dl Est Cr Clr Drug Dosing 52.9 ml/min Est GFR ( Amer) 69.7 ml/min Est GFR (Non-Af Amer) 60.2 ml/min BUN/Creatinine Ratio 15.2 (10-20) Glucose 106 H (70-99(Fasting)) mg/dl Calcium 7.5 L (8.5-10.1) mg/dl Magnesium 1.9 (1.7-2.4) mg/dl Total Bilirubin 0.6 (0.2-1.0) mg/dl AST 24 (13-39) U/L ALT 24 (7-52) U/L Alkaline Phosphatase 123 H (34-104) U/L Troponin I High Sens 10.8 (0-14) pg/ml B-Natriuretic Peptide (0-100) pg/ml Total Protein 5.3 L (6.0-8.3) gm/dl Albumin 2.4 L (3.4-5.0) gm/dl Globulin 2.9 (2.5-4.0) gm/dl Albumin/Globulin Ratio 0.8 L (0.9-2) Lipase (11-82) U/L SARS-CoV-2, RNA, NAAT (NEGATIVE) 12/26/21 12/26/21 12/26/21 Range/Units 00:45 00:45 03:20 WBC (4.8-10.8) K/ul RBC (3.93-5.22) M/uL Hgb (12.0-16.0) g/dl Hct (34.1-44.9) % MCV (80.0-100.0) fL MCH (25.0-34.0) pg MCHC (32.0-36.0) g/dL RDW Std Deviation (36.4-46.3) fL RDW Coeff of Lionel (11.5-14.5) % Plt Count (130-400) K/uL MPV (9.4-12.3) fL Immature Gran % (Auto) % Neut % (Auto) % Lymph % (Auto) % Rogers % (Auto) % Eos % (Auto) % Baso % (Auto) % Neut # (Auto) (1.4-6.5) K/uL Lymph # (Auto) (1.2-3.4) K/uL Rogers # (Auto) (0.24-0.82) K/uL Eos # (Auto) (0-0.50) K/uL Baso # (Auto) (0-0.2) K/uL Immature Gran # (Auto) (0.00-0.02) K/uL PT (9.0-12.0) Seconds INR (0.9-1.1) APTT (21.0-31.0) Seconds PTT Ratio Sodium (136-145) mmol/L Potassium (3.5-5.1) mmol/L Chloride (98-107) mmol/L Carbon Dioxide (21-32) mmol/L Anion Gap (3-11) BUN (6-23) mg/dl Creatinine (0.6-1.2) mg/dl Est Cr Clr Drug Dosing ml/min Est GFR ( Amer) ml/min Est GFR (Non-Af Amer) ml/min BUN/Creatinine Ratio (10-20) Glucose (70-99(Fasting)) mg/dl Calcium (8.5-10.1) mg/dl Magnesium (1.7-2.4) mg/dl Total Bilirubin (0.2-1.0) mg/dl AST (13-39) U/L ALT (7-52) U/L Alkaline Phosphatase (34-104) U/L Troponin I High Sens (0-14) pg/ml B-Natriuretic Peptide 86 (0-100) pg/ml Total Protein (6.0-8.3) gm/dl Albumin (3.4-5.0) gm/dl Globulin (2.5-4.0) gm/dl Albumin/Globulin Ratio (0.9-2) Lipase 26 (11-82) U/L SARS-CoV-2, RNA, NAAT NEGATIVE (NEGATIVE) MDM Narrative Physical exam and history were performed. Nursing notes, EMR, and Medication List were personally reviewed. Patient appears to have bilateral lower extremity edema with seeping of clear fluid bringing her to the ER. IV access was established and labs were obtained. An order was placed for continuous cardiac monitoring. The monitor shows a rate of 68 with normal sinus rhythm. The patient's blood work is as above and was reviewed. She does not have a significantly elevated white blood cell count or gross anemia. Her potassium is markedly low at 2.4 and she was given both IV and oral potassium to begin repletion. Remaining electrolytes are nondiagnostic. Troponin is negative. Urine is without distinct evidence of infection with culture pending. Overall the patient does not appear well for discharge home. At a minimum she will need reevaluated regarding her potassium. She may be fluid overloaded as the cause of her edema. The case was discussed with the on-call hospitalist. Please see their dictation for further patient course, plan, disposition. The chart was completed utilizing [employer] Speech Voice Recognition Software. Grammatical errors, random word insertions, pronoun errors, and incomplete sentences are an occasional consequence of this system due to software limitations, ambient noise, and hardware issues. Any formal questions or con cerns about the content, text, or information contained within the body of this dictation should be directly addressed to the provider for clarification. . Impression & Plan Hypokalemia, Edema Discharge Plan Visit Data Chief Complaint: Referred by Doctor Stated Complaint: REFERRED BY DOCTOR,FLUID FROM BODY ED Provider: Argenis Jose ED Midlevel Provider: Anthony Deleon Discharge Problem: Hypokalemia, Edema Patient Disposition: Admitted As Inpatient Discharge Instructions Interventions: ED Discharge Assessment Last Done: 12/26/21 15:49
[2021-12-27] MEDS: LEVOTHYROXINE SODIUM 75 MCG TABLET PO SCH (05:57)
[2021-12-27] MEDS ORDERED: SPIRONOLACTONE 100 MG TAB PO PRN (06:10)
[2021-12-27 07:04] LABS: Basophils # (auto) 0.02 K/uL (0-0.2); Basophils % (auto) 0.4 %; Eosinophils # (auto) 0.04 K/uL (0-0.50); Eosinophils % (auto) 0.8 %; Hematocrit (blood only) 31.6 % (34.1-44.9); Immature Granulocytes # (auto) 0.02 K/uL (0.00-0.02); Immature Granulocytes % (auto) 0.4 %; Lymphocytes # (auto) 1.84 K/uL (1.2-3.4); Lymphocytes % (auto) 36.7 %; Mean Corpuscular Hemoglobin 30.2 pg (25.0-34.0); Mean Corpuscular Hgb Conc 31.6 g/dL (32.0-36.0); Mean Corpuscular Volume 95.5 fL (80.0-100.0); Mean Platelet Volume 10.4 fL (9.4-12.3); Monocytes # (auto) 0.44 K/uL (0.24-0.82); Monocytes % (auto) 8.8 %; Neutrophils # (auto) 2.65 K/uL (1.4-6.5); Neutrophils % (auto) 52.9 %; Platelet Count 228 K/uL (130-400); RDW Coefficient of Variation 16.8 % (11.5-14.5); RDW Standard Deviation 58.4 fL (36.4-46.3); Red Blood Count 3.31 M/uL (3.93-5.22); White Blood Count 5.01 K/ul (4.8-10.8)
[2021-12-27 07:23] LABS: BUN Creatinine Ratio 13.6 (10-20); Calcium 7.5 mg/dl (8.5-10.1); Creatinine Clr Calc Pharmacy 68.6 ml/min; Est GFR (African American) 95.4 ml/min; Est GFR (Non-African American) 82.3 ml/min; Potassium 3.6 mmol/L (3.5-5.1)
[2021-12-27] MEDS ORDERED: POTASSIUM CHLORIDE CRTAB 20 MEQ TABCR PO STA ×2 (07:58→11:40)
[2021-12-27] MEDS: INSULIN ASPART PER UNIT SC SCH ×2 (08:28→12:20)
[2021-12-27] MEDS: PANTOprazole 40 MG TAB PO SCH (08:31)
[2021-12-27] MEDS: buprenorphine HCL 8 MG SUBL SL SCH (08:31)
[2021-12-27] MEDS: SUCRALFATE 1 GM/10 ML UDC PO SCH (08:31)
[2021-12-27] MEDS: CEROVITE ADV FORMULA TAB PO SCH (08:31)
[2021-12-27] MEDS ORDERED: FLUCONAZOLE 100 MG TAB PO SCH (09:00)
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
[2021-12-27] MEDS ORDERED: APIXABAN 5 MG TABLET PO SCH (11:45)
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
== END 2021-12-27 13:00 | disposition home or self-care (01) | DRG 641 ==
LOC: ED 22:57 → EDINP 12-26 06:15 → SUATTDRO 12-26 06:15 → 2N 12-26 15:49
DX: E87.6 Hypokalemia; Z98.84 Bariatric surgery status; Z79.899 Other long term (current) drug therapy; M79.7 Fibromyalgia; M96.1 Postlaminectomy syndrome, not elsewhere classified; Z79.890 Hormone replacement therapy; F17.210 Nicotine dependence, cigarettes, uncomplicated; Z91.010 Allergy to peanuts; E03.9 Hypothyroidism, unspecified; Z87.11 Personal history of peptic ulcer disease; Z86.718 Personal history of other venous thrombosis and embolism; Z91.041 Radiographic dye allergy status; F32.A Depression, unspecified; Z88.8 Allergy status to other drugs, medicaments and biological substances; J44.9 Chronic obstructive pulmonary disease, unspecified; E11.9 Type 2 diabetes mellitus without complications; E78.5 Hyperlipidemia, unspecified

== ENCOUNTER 2022-08-12 11:19 | Inpatient (IN) ==
[2022-08-12 12:01] LABS: Basophils # (auto) 0.02 K/uL (0-0.2); Basophils % (auto) 0.3 %; Eosinophils # (auto) 0.01 K/uL (0-0.50); Eosinophils % (auto) 0.2 %; Hematocrit (blood only) 30.1 % (37.0-47.0); Hemoglobin 9.5 g/dl (12.0-16.0); Immature Granulocytes # (auto) 0.01 K/uL (0.01-0.20); Immature Granulocytes % (auto) 0.2 %; Lymphocytes # (auto) 1.92 K/uL (1.2-3.4); Lymphocytes % (auto) 31.9 %; Mean Corpuscular Hemoglobin 28.4 pg (25.0-34.0); Mean Corpuscular Hgb Conc 31.6 g/dL (32.0-36.0); Mean Corpuscular Volume 89.9 fL (80.0-100.0); Mean Platelet Volume 10.1 fL (9.4-12.4); Monocytes # (auto) 0.54 K/uL (0.11-0.59); Neutrophils # (auto) 3.51 K/uL (1.40-6.50); Neutrophils % (auto) 58.4 %; Platelet Count 320 K/uL (130-400); RDW Coefficient of Variation 13.9 % (11.5-14.5); RDW Standard Deviation 45.4 fL (36.4-46.3); Red Blood Count 3.35 M/uL (4.20-5.40); White Blood Count 6.01 K/ul (4.8-10.8)
--- NOTE | 2022-08-12 12:04 | XRay Report ---
SINGLE VIEW CHEST CLINICAL HISTORY: Generalized weakness. Fall. FINDINGS: An AP, portable, upright chest radiograph is compared to study dated 07/23/2022. Correlation is made with chest CT dated 11/09/2021. The cardiomediastinal silhouette is unremarkable noting ather osclerotic calcification of the thoracic aorta. Chronic interstitial thickening is similar to previou s. The lungs and pleural spaces are clear. No pneumothorax is seen. The skeletal structures are osteo penic. The bony thorax is grossly intact. Fusion hardware is noted in the lower cervical spine. Intra thecal leads project over the thoracic spine. Cholecystectomy clips are noted in the right upper quad rant IMPRESSION: No acute cardiopulmonary abnormality. ACT 112: Negative or not required by law. Electronically signed by: Alvino Hadley M.D. 08/12/2022 12:03 PM
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
[2022-08-12 12:17] LABS: Albumin Globulin Ratio 0.9 (0.9-2); Albumin Level 2.7 gm/dl (3.4-5.0); Bilirubin,Total 0.5 mg/dl (0.2-1.0); Calcium 8.1 mg/dl (8.6-10.3); Creatinine Clr Calc Pharmacy 13.3 ml/min; Est GFR (African American) 13.9 ml/min; Globulin 3.1 gm/dl (2.5-4.0); Potassium 4.5 mmol/L (3.5-5.1); Total Protein 5.8 gm/dl (6.0-8.3)
[2022-08-12 12:27] LABS: INR 1.1 (0.9-1.1); Partial Thromboplastin Ratio 0.8; Partial Thromboplastin Time 23.4 Seconds (21.0-31.0); Prothrombin Time 11.6 Seconds (9.0-12.0)
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
--- NOTE | 2022-08-12 12:47 | Emergency Department Note ---
Impression & Plan Acute renal failure, Fall, Chronic pain ED Provider Note NAME: SOCRATES JUDD AGE: 56 SEX: F ARRIVES VIA: Walk-In INFORMANT: Patient ED PROVIDER(S): Jona Langley MD CHIEF COMPLAINT: Fall, referred. PLAN: Disposition: Admit MEDICAL DECISION MAKING: The patient is a pleasant 56-year-old woman with a past medical history of COPD, NAFLD cirrhosis, PVD, history of TIA, hyperlipidemia, hypothyroidism, type 2 diabetes, history of gastric bypass, chronic back pain status post decompression, history of postlaminectomy syndrome status post spinal cord stimulator placement, fibromyalgia, chronic pain on Suboxone, history of DVT on Eliquis who presents to emergency department via walk-in accompanied by her for evaluation of a fall that occurred yesterday when she was attempting to get boxes out of a closet and inadvertently leaned on a box that gave way where she fell forward and then backwards hitting her head on the door. She did not lose consciousness. She was able to get up with her 's assistance and ambulate at her baseline state with ambulatory dysfunction. She reports she contacted her primary care doctor today to arrange an appointment to evaluate for worsening of her acute on chronic back pain over the past week but described her fall and a minor bruise on her scalp and was frees emergency department. She denies any recent fevers, chills, cough, congestion. She reports the swelling in her legs is mid range for her and not better and not worse. Denies any urinary symptoms. Of note, the patient did arrive to emergency department during time of high volume, acuity and prolonged emergency department waiting times. Critical pathways initiated from triage. On my evaluation, the patient is chronically ill-appearing but no distress, afebrile stable vital signs. She exhibits dry cracked mucous membranes though with 1+ bilateral lower extremity pitting edema. She has a minor 1 cm contusion of her posterior parietal scalp. There is no midline tenderness to palpation of the CT or L-spine. Pelvis is stable and hips with full range of motion bilaterally. He exhibits chronic weakness with 4/5 strength of bilateral lower extremities. Reflexes within normal limits. There is no clonus. WBC within normal limits. H/H similar to prior. Platelets within normal limits. Chemistry without metabolic acidosis. Creatinine is 3.9 acutely worse from a creatinine of 1 several weeks ago. LFTs unremarkable. High-sensitivity troponin 7.5, within normal limits. CT of the head and C-spine negative for acute injury. Given the patient's acute renal failure and back pain additional CT imaging performed of the chest and abdomen pelvis which demonstrates old healing fractures. Note is made of distended bladder however no hydronephrosis or acute findings otherwise. 1L NSS ordered. Patient agrees with plan for a dmission for further management. Case [facility] the [facility] for [facility]. Triage Nursing notes reviewed and agree them. Prior/outside medical records reviewed Vital Signs: reviewed Differential diagnosis: Infection, dehydration, metabolic abnormality, hypo/hyperglycemia, electrolyte disturbance, anemia, hypoxia, cardiac sources, intracerebral event, toxicologic, neurologic, as well as other pathologies. ER treatment provided: See below. Diagnostics interpreted by me: Cardiac Monitoring: An order for continuous cardiac monitoring was placed and demonstrated normal sinus rhythm, 84 bpm, no ectopy. Laboratory studies: See below Imaging studies: See below Consultation(s): Semaj Hartley with Dr. Wall [facility] hospitalist HPI: The patient is a pleasant 56-year-old woman with a past medical history of COPD, NAFLD cirrhosis, PVD, history of TIA, hyperlipidemia, hypothyroidism, type 2 diabetes, history of gastric bypass, chronic back pain status post decompression, history of postlaminectomy syndrome status post spinal cord stimulator placement, fibromyalgia, chronic pain on Suboxone, history of DVT on Eliquis who presents to emergency department via walk-in accompanied by her for evaluation of a fall that occurred yesterday when she was attempting to get boxes out of a closet and inadvertently leaned on a box that gave way where she fell forward and then backwards hitting her head on the door. She did not lose consciousness. She was able to get up with her 's assistance and ambulate at her baseline state with ambulatory dysfunction. She reports she contacted her primary care doctor today to arrange an appointment to evaluate for worsening of her acute on chronic back pain over the past week but described her fall and a minor bruise on her scalp and was frees emergency department. She denies any recent fevers, chills, cough, congestion. She reports the swelling in her legs is mid range for her and not better and not worse. Denies any urinary symptoms. ROS: See above HPI for pertinent positives & negatives. A total of 10 systems reviewed and were otherwise negative. VITALS:See Below PHYSICAL EXAMINATION: GENERAL: Awake, alert, chronically ill-appearing, in no distress/ HENT: Normocephalic, atraumatic. Oropharynx dry-cracked mucous membrane. EYES: Normal conjunctiva. Sclera non-icteric. NECK: Supple. No nuchal rigidity. FROM. No JVD. RESPIRATORY: Clear to auscultation. CARDIAC: Regular rate, normal rhythm. Extremities warm and well perfused. Pulses equal. ABDOMEN: Soft, non-distended. No tenderness to palpation. No rebound or guarding. No masses. RECTAL: Deferred. MUSCULOSKELETAL: Chest examination reveals no tenderness. The back is symmetrical on inspection without obvious abnormality. There is no CVA tenderness to palpation. No joint edema. LOWER EXTREMITIES: Calves are equal size bilaterally and non-tender. No edema. No discoloration. NEURO: Normal sensorium. No sensory or motor deficits noted. Chronic weakness with 4/5 strength of bilateral lower extremities. Reflexes within normal limits. There is no clonus. SKIN: No rash or jaundice noted. Jona Langley MD Past Med/Surg History Medical History Anxiety Bronchitis hx Cirrhosis COPD (chronic obstructive pulmonary disease) Degenerative disc disease Depression Diabetes mellitus, type II pt denies DVT (deep venous thrombosis) 04/2022 femoral vein, right lower extremity Dysphagia Falls frequently d/t drop foot Fibromyalgia Foot drop RIGHT Fractured pelvis 04/2022 from a fall, currently using a walker GERD (gastroesophageal reflux disease) History of COVID-19 06/2020- does not remember what her symptoms were- NO HOSPITALIZATION, NO CURRENT ISSUES History of esophageal stricture Hx pulmonary embolism 04/2022- hospitalized [facility] Lynne, currently taking eliquis Hyperlipidemia Hypothyroidism 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 CLICKS BUT NEVER LOCKED. Transient ischemic attack (TIA) treated in patient at [facility] 05/05/19-05/06/19. placed on Plavix & ASA Weight loss, unintentional Surgical History H/O cervical discectomy with a cage (done at [facility]) Full ROM. History of breast biopsy MULITPLE ON BILATERAL BREASTS History of cholecystectomy History of esophageal dilatation History of esophagogastroduodenoscopy (EGD) History of laminectomy LUMBAR AREA X2 Hx of colonoscopy Hx of gastric bypass Hx of lumpectomy (-) RIGHT BREAST S/P insertion of spinal cord stimulator [facility]. Turns it off for surgery - has remote. S/P ANSHU-BSO Status post surgery right leg nerve decompression for foot drop Family History Family/Other Family hx of colon cancer Father Family history of diabetes mellitus Grandmother (Maternal) Family history of diabetes mellitus Other No family history of adverse response to anesthesia Social History Smoking Status: Former smoker Tobacco Type: Cigarettes Cigarettes Per Day: <1/2 ppd; Second Hand Exposure: No; Do You Dip or Chew Tobacco: Yes; Hx Alcohol Use: No Hx Substance Use: No Preferred Language: Lao Communication Ability: Effective Junction Maker Required: No Beliefs That Will Affect Care: None marital status: Current Living Situation: Spouse and Family Current Living Situation Comment: home with spouse and adopted grandchildren. Feels Safe at Home: Yes Safety Concerns: Feels Safe At This Time Assistive Devices: Glasses Allergies Allergies Allergy/AdvReac Type Severity Reaction Status Date / Time Iodinated Contrast Media Allergy Severe ANAPHYLAXIS Verified 08/12/22 15:43 omeprazole Allergy Severe ANAPHYLAXIS Verified 08/12/22 15:43 peanut Allergy Intermediate LIPS SWELL Verified 08/12/22 15:43 FROM PEANUT SHELL DUST povidone-iodine Allergy Intermediate blisters Verified 08/12/22 15:43 [From Betadine] erythromycin base AdvReac Intermediate GI UPSET Verified 08/12/22 15:43 Home Meds Home Medications Medication Instructions Recorded Confirmed buprenorphine HCl 8 mg sublingual 8 mg sublingual TID 10/10/21 08/12/22 tablet furosemide 40 mg tablet 40 mg PO QPM edema 10/10/21 08/12/22 mirtazapine 30 mg tablet 30 mg PO HS 10/10/21 08/12/22 ondansetron HCl 8 mg tablet 8 mg PO BID PRN Nausea 10/10/21 08/12/22 cyanocobalamin (vitamin B-12) 1,000 mcg IM .EVERY 4 WEEKS 11/09/21 08/12/22 1,000 mcg/mL injection solution epinephrine 0.3 mg/0.3 mL 0.3 mg IM UD PRN Allergic Reaction 11/09/21 08/12/22 injection, auto-injector cholecalciferol (vitamin D3) 50 50 mcg PO QAM 06/09/22 08/12/22 mcg (2,000 unit) capsule (Vitamin D3) methocarbamol 750 mg tablet 750 mg PO TID PRN MUSCLE SPASMS 06/09/22 08/12/22 Maalox/Benadryl/Lidocaine 15 ml PO QID PRN sore mouth 08/12/22 08/12/22 Naloxone Hcl 1 dose PO DIRECTED 08/12/22 08/12/22 albuterol sulfate 90 mcg/actuation 2 puff inhalation Q4 PRN Shortness 08/12/22 08/12/22 aerosol inhaler (ProAir HFA) Of Breath Or Wheezing calcium citrate 500 mg PO BID 08/12/22 08/12/22 clotrimazole 10 mg marquise 10 mg PO .5XSDAY 08/12/22 08/12/22 famotidine 40 mg tablet 40 mg PO AMHS 08/12/22 08/12/22 fluticasone 250 mcg-salmeterol 50 1 inh inhalation BID 08/12/22 08/12/22 mcg/dose blistr powdr for inhalation (Advair Diskus) furosemide 40 mg tablet (Lasix) 80 mg PO QAM 08/12/22 08/12/22 lactobacillus combination no.4 3 0 mmu cells PO DAILY 08/12/22 08/12/22 billion cell capsule (Probiotic) lactulose 10 gram/15 mL oral 45 ml PO BID 08/12/22 08/12/22 solution levothyroxine 88 mcg tablet 88 mcg PO QAM 08/12/22 08/12/22 (Synthroid) [id number] 0.4 mg-calcium 162 1 tab PO DAILY 08/12/22 08/12/22 mg-iron 18 du-rofooys-bsijrs tablet potassium chloride 10 mEq 20 meq PO QAM 08/12/22 08/12/22 tablet,extended release sennosides 8.6 mg tablet (senna) 8.6 mg PO BID 08/12/22 08/12/22 spironolactone 100 mg tablet 200 mg PO DAILY 08/12/22 08/12/22 tiotropium bromide 2.5 2 puff inhalation DAILY 08/12/22 08/12/22 mcg/actuation mist for inhalation (Spiriva Respimat) zinc oxide 40 % topical ointment 1 applic topical DIRECTED PRN 08/12/22 08/12/22 coccyx Results & Data (ED) Vital Signs Vital Signs - 24 hr 08/12/22 11:22 08/12/22 12:46 08/12/22 13:20 Temperature 36.6 C Temperature Source Temporal Artery Scan Pulse Rate 105 H 93 H Pulse Rate [Right Brachial] 88 Pulse Rhythm Regular Pulse Rhythm [Right Brachial] Regular Pulse Strength [Right Brachial] Normal Respiratory Rate 18 19 Respiratory Effort / Characteristics Non-Labored Spontaneous Non-Labored Spontaneous Respiratory Depth Normal Normal Respiratory Pattern Regular Regular Blood Pressure 108/75 Blood Pressure [Right Arm] 110/89 Blood Pressure Mean 86 Blood Pressure Mean [Right Arm] 96 Blood Pressure Position Sitting Blood Pressure Position [Right Arm] Lying Pulse Oximetry 99 98 Oxygen Delivery Method Room Air Room Air Sepsis Recent Fever Within 48 Hours No Sepsis New/Unexplained Change in Mental Status No Sepsis Action Taken by Nursing No Action Required Laboratory Data Attestation: I reviewed the patient's lab results. 08/12/22 11:42 08/12/22 11:42 Lab Results 08/12/22 08/12/22 08/12/22 Range/Units 11:42 11:42 11:42 WBC 6.01 (4.8-10.8) K/ul RBC 3.35 L (4.20-5.40) M/uL Hgb 9.5 L (12.0-16.0) g/dl Hct 30.1 L (37.0-47.0) % MCV 89.9 (80.0-100.0) fL MCH 28.4 (25.0-34.0) pg MCHC 31.6 L (32.0-36.0) g/dL RDW Std Deviation 45.4 (36.4-46.3) fL RDW Coeff of Lionel 13.9 (11.5-14.5) % Plt Count 320 (130-400) K/uL MPV 10.1 (9.4-12.4) fL Immature Gran % (Auto) 0.2 % Neut % (Auto) 58.4 % Lymph % (Auto) 31.9 % [place] % (Auto) 9.0 % Eos % (Auto) 0.2 % Baso % (Auto) 0.3 % Neut # (Auto) 3.51 (1.40-6.50) K/uL Lymph # (Auto) 1.92 (1.2-3.4) K/uL [place] # (Auto) 0.54 (0.11-0.59) K/uL Eos # (Auto) 0.01 (0-0.50) K/uL Baso # (Auto) 0.02 (0-0.2) K/uL Immature Gran # (Auto) 0.01 (0.01-0.20) K/uL PT 11.6 (9.0-12.0) Seconds INR 1.1 (0.9-1.1) APTT 23.4 (21.0-31.0) Seconds PTT Ratio 0.8 Sodium 132 L (136-145) mmol/L Potassium 4.5 (3.5-5.1) mmol/L Chloride 99 (98-107) mmol/L Carbon Dioxide 23 (21-32) mmol/L Anion Gap 10 (3-11) BUN 56 H (6-23) mg/dl Creatinine 3.99 H (0.6-1.2) mg/dl Est Cr Clr Drug Dosing 13.3 ml/min Est GFR ( Amer) 13.9 ml/min Est GFR (Non-Af Amer) 12.0 ml/min BUN/Creatinine Ratio 14.0 (10-20) Glucose 122 H (70-99(Fasting)) mg/dl Calcium 8.1 L (8.6-10.3) mg/dl Total Bilirubin 0.5 (0.2-1.0) mg/dl AST 26 (13-39) U/L ALT 17 (7-52) U/L Alkaline Phosphatase 152 H (34-104) U/L Troponin I High Sens 7.5 (0-14) pg/ml Total Protein 5.8 L (6.0-8.3) gm/dl Albumin 2.7 L (3.4-5.0) gm/dl Globulin 3.1 (2.5-4.0) gm/dl Albumin/Globulin Ratio 0.9 (0.9-2) Administered Medications Buprenorphine HCl (Buprenorphine Hcl 8 Mg Subl) 8 mg SL TID MEGHNA Stop: 09/11/22 17:58 Last Admin: 08/12/22 21:26 Dose: Not Given Documented By: Admin: 08/12/22 18:47 Dose: 8 mg Documented By: RONDA Calcium Citrate (Calcium Citrate 950 Mg Tab) 950 mg PO DAILY MEGHNA Stop: 09/11/22 20:59 Last Admin: 08/12/22 21:27 Dose: 950 mg Documented By: MAIKEL Clotrimazole (Clotrimazole 10 Mg Marquise) 10 mg BUCCAL [id number] MEGHNA Stop: 08/20/22 23:59 Last Admin: 08/12/22 21:23 Dose: 10 mg Documented By: MAIKEL Famotidine (Famotidine 10 Mg Tablet) 10 mg PO DAILY MEGHNA Stop: 09/11/22 20:59 Last Admin: 08/12/22 21:28 Dose: 10 mg Documented By: MAIKEL Fluticasone/Vilanterol (Fluticasone/Vilanterol 200/25mcg 14 Puffs/Inhaler) 1 puffs INH DAILY MEGHNA Stop: 09/11/22 20:59 Last Admin: 08/12/22 21:22 Dose: 1 puffs Documented By: MAIKEL Sodium Chloride (Nss 1000ml) 1,000 mls @ 125 mls/hr IV .Q8H MEGHNA Stop: 08/12/22 22:14 Last Infusion: 08/12/22 15:18 Dose: 0 mls/hr Documented By: Admin: 08/12/22 14:24 Dose: 125 mls/hr Documented By: AVA Lactulose (Lactulose Syrup 30 Gm/45 Ml Udp) 30 gm PO BID MEGHNA Stop: 09/11/22 20:59 Last Admin: 08/12/22 21:22 Dose: 30 gm Documented By: MAIKEL Mirtazapine (Mirtazapine Tab 15 Mg Tab) 30 mg PO HS MEGHNA Stop: 09/11/22 20:59 Last Admin: 08/12/22 21:23 Dose: 30 mg Documented By: MAIKEL Miscellaneous (Zinc Oxide 40 % Ointment: Order Awaiting Action) 1 each N/A BID MEGHNA Stop: 09/11/22 20:59 Last Admin: 08/12/22 21:21 Dose: Not Given Documented By: MAIKEL Miscellaneous (Varenicline 1 Mg Tablet: Order Awaiting Action) 1 each N/A BID MEGHNA Stop: 09/11/22 20:59 Last Admin: 08/12/22 21:21 Dose: Not Given Documented By: MAIKEL Pantoprazole Sodium (Pantoprazole 40 Mg Tab) 40 mg PO BID MEGHNA Stop: 09/11/22 20:59 Last Admin: 08/12/22 21:25 Dose: 40 mg Documented By: MAIKEL Discontinued Medications Acetaminophen (Ofirmev) 1,000 mg in 100 mls @ 400 mls/hr IV NOW STA Stop: 08/12/22 13:26 Last Infusion: 08/12/22 13:40 Dose: 0 mls/hr Documented By: Admin: 08/12/22 13:16 Dose: 400 mls/hr Documented By: AVA Ondansetron HCl (Ondansetron Inj 2 Mg/Ml 2 Ml Vial) 4 mg IV NOW STA Stop: 08/12/22 13:13 Last Admin: 08/12/22 13:16 Dose: 4 mg Documented By: AVA Imaging Data Radiologist's Impression: Cervical Spine CT 08/12/22 11:27 CT cervical spine wo con CLINICAL HISTORY: 56 years-old Female with Neck trauma. Acute head and neck injury status post trauma COMPARISON: Head CT of same day, CT cervical spine 12/26/2021 TECHNIQUE: Multiple axial CT images of the cervical spine were obtained without contrast. A dose lowering technique was utilized adhering to the principles of ALARA. FINDINGS: Demineralized appearance of the bones. Anterior plate and screw fusion hardware with discectomy at C6-C7. No evidence of hardware complication. No acute fracture, subluxation or endplate erosion identified. Mild superior endplate compression at T2 is unchanged. Chronic ununited proximal left clavicular fracture. Lung apices are clear without pneumothorax. No prevertebral edema. Unremarkable soft tissues. IMPRESSION: 1. No acute cervical spine fracture or subluxation. 2. 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 3. Anterior plate-screw fusion with discectomy at C6-C7. No evidence of hardware complication. ACT 112: Negative or not required by law. The above report was generated using voice recognition software. It may contain grammatical, syntax or spelling errors. Electronically signed by: Reji Jack M.D. 08/12/2022 12:32 PM Chest X-Ray 08/12/22 11:27 SINGLE VIEW CHEST CLINICAL HISTORY: Generalized weakness. Fall. FINDINGS: An AP, portable, upright chest radiograph is compared to study dated 07/23/2022. Correlation is made with chest CT dated 11/09/2021. The cardiomediastinal silhouette is unremarkable noting atherosclerotic calcification of the thoracic aorta. Chronic interstitial thickening is similar to previous. The lungs and pleural spaces are clear. No pneumothorax is seen. The skeletal structures are osteopenic. The bony thorax is grossly intact. Fusion hardware is noted in the lower cervical spine. Intrathecal leads project over the thoracic spine. Cholecystectomy clips are noted in the right upper quadrant IMPRESSION: No acute cardiopulmonary abnormality. ACT 112: Negative or not required by law. Electronically signed by: Alvino Hadley M.D. 08/12/2022 12:[address] 08/12/22 11:27 CT SCAN OF THE BRAIN WITHOUT IV CONTRAST CLINICAL HISTORY: Head injury. Fall. COMPARISON STUDY: CT of the brain dated 12/26/2021. TECHNIQUE: Unenhanced axial CT scan of the brain is performed from the vertex to the skull base. A dose lowering technique was utilized adhering to the principles of ALARA. CT DOSE: 936.20 mGy.cm FINDINGS: Brain parenchyma: There is minimal microangiopathic change. There is no hemorrhage, mass effect, or evidence of acute territorial ischemia by CT criteria. Owens-white matter differentiation is preserved. No extra-axial fluid collection is seen. Ventricles, sulci, cisterns: Normal in configuration. Intracranial vasculature: There is atherosclerotic calcification of the cavernous carotid arteries. Calvarium: There is no depressed calvarial fracture. Sinuses and mastoids: The visualized paranasal sinuses are clear. The mastoid air cells are well pneumatized. Orbits: The bony orbits are grossly intact. IMPRESSION: There is no hemorrhage, mass effect, or evidence of acute territorial ischemia by CT criteria. ACT 112: Negative or not required by law. Electronically signed by: Alvino Hadley M.D. 08/12/2022 12:08 PM Abdomen/Pelvis CT 08/12/22 12:44 CT SCAN OF THE ABDOMEN AND PELVIS WITHOUT IV CONTRAST CLINICAL HISTORY: Fall. Back pain. Renal insufficiency. COMPARISON STUDY: Abdominal CT dated 11/09/2021. TECHNIQUE: CT scan of the abdomen and pelvis is performed from the lung bases to the proximal femora. Images are reviewed in the axial, sagittal, and coronal planes. IV contrast was not administered for this examination due to poor renal function. Note that the examination is suboptimal without oral and IV contrast. A dose lowering technique was utilized adhering to the principles of ALARA. CT DOSE: 300.59 mGy.cm FINDINGS: Lung bases: The heart is normal in size and without pericardial effusion. Scar ring/atelectasis is noted at both lung bases. No airspace consolidation or pleural effusion is identified. Liver: The unenhanced liver is cirrhotic in morphology and heterogeneous in attenuation. There is nodularity of the hepatic surface contour. Attenuation is diminished indicating a component of steatosis. There is no intrahepatic biliary ductal dilatation. Gallbladder: Surgically absent noting clips in the gallbladder fossa. Spleen: Normal in size and attenuation. Pancreas: The unenhanced pancreas is atrophic and grossly unremarkable. Adrenal glands: Unremarkable. Kidneys: The unenhanced kidneys are normal in size and without hydronephrosis. There are no renal calculi identified. There is no evidence of contour deforming renal mass lesion. Abdominal vasculature: The abdominal aorta is normal in course and caliber noting moderate atherosclerotic calcification. Stomach and bowel: There is a small hiatal hernia. Postsurgical change is noted in the stomach. There is moderate colonic fecal retention. No bowel obstruction is seen. The appendix is not identified and reported surgically absent. Peritoneum: There is no intraperitoneal free air or abdominal ascites. There is evidence of previous ventral hernia repair. Lymphadenopathy: None. Pelvic viscera: The bladder is distended but otherwise normal in appearance. The uterus is surgically absent. No adnexal lesion is seen. Skeletal structures: The skeletal structures are osteopenic. There is moderate lumbosacral spondylosis. Intersegmental device is present in the left supragluteal tissues. Leads extend noted into the lower thoracic region. There are subacute/healing right pubic ring fractures. There are also late subacute/healing fractures of the left pubic ring. The proximal femora appear intact. There is 4 subacute/healing versus insufficiency fractures of the medial right ilium seen on axial image #216 as well as the left sacral ala seen on axial image #224. There is a subacute appearing fracture by coccyx which is best seen on the sagittal reformats. No lytic or blastic lesions are seen. IMPRESSION: 1. There are subacute/healing right pubic ring fractures. 2. There are late subacute/healing left pubic ring fractures. 3. There are late subacute/healing fractures versus insufficiency fractures of the left sacral ala and the right iliac wing. 4. There is a subacute-appearing fracture of the coccyx. 5. The liver is cirrhotic in morphology and markedly heterogeneous in attenuation with evidence of steatosis. The micronodular appearance may be related to regenerative nodules. Correlate with clinical findings and serum AFP levels. GI follow-up is recommend. 6. There is no evidence of solid organ injury in the abdomen or pelvis on this unenhanced examination. 7. Bladder distention. 8. Additional findings as above. ACT 112: Negative or not required by law. Electronically signed by: Alvino Hadley M.D. 08/12/2022 2:[address] 08/12/22 12:44 CT chest diagnostic wo con CLINICAL HISTORY: back pain, fall TECHNIQUE: Multidetector row helical CT of the chest was performed. Coronal and sagittal reformations were obtained. Automated dose lowering techniques and/or adjustment according to patient size were utilized for this exam. Comparison: Comparison is made to CTA chest of 11/09/2021 FINDINGS: Lungs and pleura: Atelectasis versus scarring is seen in the dependent portions of the lungs. A few pulmonary nodules are seen including a 3 mm nodule in the left upper lobe and series 4 image 25) 4 mm pleural-based nodule in the right lower lobe (image 162). Heart and pericardium: Heart size is normal. No pericardial effusion. Vessels: Mild atherosclerotic changes in the aorta and coronary arteries. Mediastinum and melisa: Unremarkable. Chest wall and lower neck: Unremarkable. Abdomen: For findings below the diaphragm, please refer to CT of the abdomen dated the same. Bones: Degenerative changes in the thoracic spine. Spinal stimulator is seen. Partial visualization of ACDF. There is a fracture of the medial third of the left clavicle which is likely chronic. IMPRESSION: No acute abnormality and in particular no evidence of acute fracture. Likely chronic fracture of the medial third of the left clavicle noted. ACT 112: Negative or not required by law. Electronically signed by: Will Carey M.D. 08/12/2022 2:21 PM Discharge Plan Visit Data Chief Complaint: Head Pain Stated Complaint: DR MACK, BRAIN BLEED ED Provider: Jona Langley Discharge Problem: Acute renal failure, Fall, Chronic pain Patient Disposition: Admitted As Inpatient Discharge Instructions Interventions: ED Discharge Assessment Last Done: 08/12/22 16:50
[2022-08-12 12:51] LABS: Troponin I High Sensitivity 7.5 pg/ml (0-14)
[2022-08-12] MEDS ORDERED: ACETAMINOPHEN 1,000 MG/100 ML VIAL IV STA (13:12)
[2022-08-12] MEDS ORDERED: ONDANSETRON INJ 2 MG/ML 2 ML VIAL IV STA (13:12)
[2022-08-12] MEDS ORDERED: SODIUM CHLORIDE 0.9% 1000ML 1,000 ML IV SCH (14:15)
--- NOTE | 2022-08-12 14:23 | CT Scan Report ---
CT chest diagnostic wo con CLINICAL HISTORY: back pain, fall TECHNIQUE: Multidetector row helical CT of the chest was performed. Coronal and sagittal reformations were obtained. Automated dose lowering techniques and/or adjustment according to patient size were u tilized for this exam. Comparison: Comparison is made to CTA chest of 11/09/2021 FINDINGS: Lungs and pleura: Atelectasis versus scarring is seen in the dependent portions of the lungs. A few p ulmonary nodules are seen including a 3 mm nodule in the left upper lobe and series 4 image 25) 4 mm pleural-based nodule in the right lower lobe (image 162). Heart and pericardium: Heart size is normal. No pericardial effusion. Vessels: Mild atherosclerotic changes in the aorta and coronary arteries. Mediastinum and melisa: Unremarkable. Chest wall and lower neck: Unremarkable. Abdomen: For findings below the diaphragm, please refer to CT of the abdomen dated the same. Bones: Degenerative changes in the thoracic spine. Spinal stimulator is seen. Partial visualization o f ACDF. There is a fracture of the medial third of the left clavicle which is likely chronic. IMPRESSION: No acute abnormality and in particular no evidence of acute fracture. Likely chronic fracture of the medial third of the left clavicle noted. ACT 112: Negative or not required by law. Electronically signed by: Will Carey M.D. 08/12/2022 2:21 PM
--- NOTE | 2022-08-12 14:30 | CT Scan Report ---
CT SCAN OF THE ABDOMEN AND PELVIS WITHOUT IV CONTRAST CLINICAL HISTORY: Fall. Back pain. Renal insufficiency. COMPARISON STUDY: Abdominal CT dated 11/09/2021. TECHNIQUE: CT scan of the abdomen and pelvis is performed from the lung bases to the proximal femora. Images are reviewed in the axial, sagittal, and coronal planes. IV contrast was not administered for this examination due to poor renal function. Note that the examination is suboptimal without oral an d IV contrast. A dose lowering technique was utilized adhering to the principles of ALARA. CT DOSE: 300.59 mGy.cm FINDINGS: Lung bases: The heart is normal in size and without pericardial effusion. Scarring/atelectasis is not ed at both lung bases. No airspace consolidation or pleural effusion is identified. Liver: The unenhanced liver is cirrhotic in morphology and heterogeneous in attenuation. There is nod ularity of the hepatic surface contour. Attenuation is diminished indicating a component of steatosis . There is no intrahepatic biliary ductal dilatation. Gallbladder: Surgically absent noting clips in the gallbladder fossa. Spleen: Normal in size and attenuation. Pancreas: The unenhanced pancreas is atrophic and grossly unremarkable. Adrenal glands: Unremarkable. Kidneys: The unenhanced kidneys are normal in size and without hydronephrosis. There are no renal sosa culi identified. There is no evidence of contour deforming renal mass lesion. Abdominal vasculature: The abdominal aorta is normal in course and caliber noting moderate atheroscle rotic calcification. Stomach and bowel: There is a small hiatal hernia. Postsurgical change is noted in the stomach. There is moderate colonic fecal retention. No bowel obstruction is seen. The appendix is not identified a nd reported surgically absent. Peritoneum: There is no intraperitoneal free air or abdominal ascites. There is evidence of previous ventral hernia repair. Lymphadenopathy: None. Pelvic viscera: The bladder is distended but otherwise normal in appearance. The uterus is surgically absent. No adnexal lesion is seen. Skeletal structures: The skeletal structures are osteopenic. There is moderate lumbosacral spondylosi s. Intersegmental device is present in the left supragluteal tissues. Leads extend noted into the low er thoracic region. There are subacute/healing right pubic ring fractures. There are also late subacu te/healing fractures of the left pubic ring. The proximal femora appear intact. There is 4 subacute/h ealing versus insufficiency fractures of the medial right ilium seen on axial image #216 as well as t he left sacral ala seen on axial image #224. There is a subacute appearing fracture by coccyx which i s best seen on the sagittal reformats. No lytic or blastic lesions are seen. IMPRESSION: 1. There are subacute/healing right pubic ring fractures. 2. There are late subacute/healing left pubic ring fractures. 3. There are late subacute/healing fractures versus insufficiency fractures of the left sacral ala an d the right iliac wing. 4. There is a subacute-appearing fracture of the coccyx. 5. The liver is cirrhotic in morphology and markedly heterogeneous in attenuation with evidence of st eatosis. The micronodular appearance may be related to regenerative nodules. Correlate with clinical findings and serum AFP levels. GI follow-up is recommend. 6. There is no evidence of solid organ injury in the abdomen or pelvis on this unenhanced examination . 7. Bladder distention. 8. Additional findings as above. ACT 112: Negative or not required by law. Electronically signed by: Alvino Hadley M.D. 08/12/2022 2:29 PM
--- NOTE | 2022-08-12 15:03 | History & Physical Report ---
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 Acute kidney injury Cr on admission 3.99 (baseline Cr~1 per records) In setting of increased NSAIDs since fall with multiple fractures last February. States she takes Advil almost every day and sometimes takes up to 9 capsules in 24hr period Advised to stop NSAID use in setting of Eliquis Holding spironolactone, lasix for now Received 1 L NSS in ED. Repeat BMP pending for this evening UA negative for infection, urine lyte studies pending No evidence of hydronephrosis on CT abd/pelvis Routine nephro consult Fall Imaging reveals multiple chronic or healing fractures but no acute traumatic findings on CT head, C spine CT, chest CT or CT abd/pelvis PT/OT evaluations, Fall precautions COPD Ongoing tobacco use but significant less, >60 pack years, at respiratory baseline. Continue home inhalers History of PE Continue Eliquis Mood disorder Continue mirtazapine Fibromyalgia, chronic pain syndrome Continue buprenorphine TID, PRN methocarbamol Mouth pain Cont Magic Swizzle 5x/day PRN as prescribed by PCP Hypothyroidism Continue levothyroxine DVT Ppx: Eliquis Code status: FULL PCP: My Dispo: Admitted to med/tele Patient seen in collaboration with Dr. Wall. Please see addendum. I spent a total of 80 minutes coordinating, documenting, and providing care for this patient excluding time spent in the performance of separately billed services. History of Present Illness Chief Complaint: fall Primary Care Provider: Ishaan Pepe MD This is a 56yo F with a PMH of cirrhosis secondary to Rodrigues with known abdominal ascites, COPD, chronic hyperventilation syndrome, history of DVT on anticoagulation, history of gastric bypass, fibromyalgia, thoracic and lumbosacral neuritis, ongoing tobacco use and other medical problems listed below who presents after fall earlier today at home. Patient normally ambulates with a scooter but tries to ambulate independently for small distances and fell walking to the bathroom, hitting her head after tripping over an open box. Denies loss of consciousness. History of pubic ring fractures last February. Has been taking 3 Advil 3x/day for most days over the past 6 months since fractures and worsening neck pain. Also having increased frequency of urination but denies dysuria, hematuria. No fever or chills, lightheadedness, headache, chest pain, shortness of breath, nausea, vomiting, abdominal pain, or changes to bowel habits. Allergies Allergy/AdvReac Type Severity Reaction Status Date / Time Iodinated Contrast Media Allergy Severe ANAPHYLAXIS Verified 08/12/22 15:43 omeprazole Allergy Severe ANAPHYLAXIS Verified 08/12/22 15:43 peanut Allergy Intermediate LIPS SWELL Verified 08/12/22 15:43 FROM PEANUT SHELL DUST povidone-iodine Allergy Intermediate blisters Verified 08/12/22 15:43 [From Betadine] erythromycin base AdvReac Intermediate GI UPSET Verified 08/12/22 15:43 Home Medications Medication Instructions Recorded Confirmed Type buprenorphine HCl 8 mg sublingual 8 mg sublingual TID 10/10/21 08/12/22 History tablet furosemide 40 mg tablet 40 mg PO QPM edema 10/10/21 08/12/22 History mirtazapine 30 mg tablet 30 mg PO HS 10/10/21 08/12/22 History ondansetron HCl 8 mg tablet 8 mg PO BID PRN Nausea 10/10/21 08/12/22 History cyanocobalamin (vitamin B-12) 1,000 mcg IM .EVERY 4 WEEKS 11/09/21 08/12/22 History 1,000 mcg/mL injection solution epinephrine 0.3 mg/0.3 mL 0.3 mg IM UD PRN Allergic Reaction 11/09/21 08/12/22 History injection, auto-injector cholecalciferol (vitamin D3) 50 50 mcg PO QAM 06/09/22 08/12/22 History mcg (2,000 unit) capsule (Vitamin D3) methocarbamol 750 mg tablet 750 mg PO TID PRN MUSCLE SPASMS 06/09/22 08/12/22 History Maalox/Benadryl/Lidocaine 15 ml PO QID PRN sore mouth 08/12/22 08/12/22 History Naloxone Hcl 1 dose PO DIRECTED 08/12/22 08/12/22 History albuterol sulfate 90 mcg/actuation 2 puff inhalation Q4 PRN Shortness 08/12/22 08/12/22 History aerosol inhaler (ProAir HFA) Of Breath Or Wheezing calcium citrate 500 mg PO BID 08/12/22 08/12/22 History clotrimazole 10 mg marquise 10 mg PO .5XSDAY 08/12/22 08/12/22 History famotidine 40 mg tablet 40 mg PO AMHS 08/12/22 08/12/22 History fluticasone 250 mcg-salmeterol 50 1 inh inhalation BID 08/12/22 08/12/22 History mcg/dose blistr powdr for inhalation (Advair Diskus) furosemide 40 mg tablet (Lasix) 80 mg PO QAM 08/12/22 08/12/22 History lactobacillus combination no.4 3 0 mmu cells PO DAILY 08/12/22 08/12/22 History billion cell capsule (Probiotic) lactulose 10 gram/15 mL oral 45 ml PO BID 08/12/22 08/12/22 History solution levothyroxine 88 mcg tablet 88 mcg PO QAM 08/12/22 08/12/22 History (Synthroid) [id number] 0.4 mg-calcium 162 1 tab PO DAILY 08/12/22 08/12/22 History mg-iron 18 lm-hwjnars-kbuncu tablet potassium chloride 10 mEq 20 meq PO QAM 08/12/22 08/12/22 History tablet,extended release sennosides 8.6 mg tablet (senna) 8.6 mg PO BID 08/12/22 08/12/22 History spironolactone 100 mg tablet 200 mg PO DAILY 08/12/22 08/12/22 History tiotropium bromide 2.5 2 puff inhalation DAILY 08/12/22 08/12/22 History mcg/actuation mist for inhalation (Spiriva Respimat) zinc oxide 40 % topical ointment 1 applic topical DIRECTED PRN 08/12/22 08/12/22 History coccyx Past Med/Surg History Medical History (Updated 08/12/22 @ 17:07 by Katina Gold PA-C) Anxiety Bronchitis hx Cirrhosis COPD (chronic obstructive pulmonary disease) Degenerative disc disease Depression Diabetes mellitus, type II pt denies DVT (deep venous thrombosis) 04/2022 femoral vein, right lower extremity Dysphagia Falls frequently d/t drop foot Fibromyalgia Foot drop RIGHT Fractured pelvis 04/2022 from a fall, currently using a walker GERD (gastroesophageal reflux disease) History of COVID-19 06/2020- does not remember what her symptoms were- NO HOSPITALIZATION, NO CURRENT ISSUES History of esophageal stricture Hx pulmonary embolism 04/2022- hospitalized [facility], currently taking eliquis Hyperlipidemia Hypothyroidism 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 CLICKS BUT NEVER LOCKED. Transient ischemic attack (TIA) treated in patient at [facility] 05/05/19-05/06/19. placed on Plavix & ASA Weight loss, unintentional Surgical History H/O cervical discectomy with a cage (done at [facility]) Full ROM. History of breast biopsy MULITPLE ON BILATERAL BREASTS History of cholecystectomy History of esophageal dilatation History of esophagogastroduodenoscopy (EGD) History of laminectomy LUMBAR AREA X2 Hx of colonoscopy Hx of gastric bypass Hx of lumpectomy (-) RIGHT BREAST S/P insertion of spinal cord stimulator [facility]. Turns it off for surgery - has remote. S/P ANSHU-BSO Status post surgery right leg nerve decompression for foot drop Family History Family/Other Family hx of colon cancer Father Family history of diabetes mellitus Grandmother (Maternal) Family history of diabetes mellitus Other No family history of adverse response to anesthesia Social History Smoking Status: Current every day smoker Tobacco Type: Cigarettes Cigarettes Per Day: <1/2 ppd; Second Hand Exposure: No; Do You Dip or Chew Tobacco: Yes; Hx Alcohol Use: No Hx Substance Use: No Preferred Language: Mongolian Communication Ability: Effective Animal Health Technician Required: No Beliefs That Will Affect Care: None marital status: Current Living Situation: Spouse Current Living Situation Comment: home with spouse and adopted grandchildren. Feels Safe at Home: Yes Assistive Devices: Glasses and Walker Review of Systems Review of Systems: At least ten systems reviewed and negative except as noted in the HPI. Physical Exam Physical Exam: Please see Dr. Wall's addendum for physical exam. Results & Data Results & Data Vital Signs (Past 12 Hours) Vital Signs Temp Pulse Pulse Resp BP BP Pulse Ox 08/12/22 13:20 88 19 110/89 98 08/12/22 12:46 93 H 08/12/22 11:22 36.6 C 105 H 18 108/75 99 O2 Del Method 08/12/22 13:20 Room Air 08/12/22 12:46 08/12/22 11:22 Room Air Laboratory Results Short CBC 08/12/22 Range/Units 11:42 WBC 6.01 (4.8-10.8) K/ul Hgb 9.5 L (12.0-16.0) g/dl Hct 30.1 L (37.0-47.0) % Plt Count 320 (130-400) K/uL BMP 08/12/22 11:42 Sodium 132 L Potassium 4.5 Chloride 99 Carbon Dioxide 23 BUN 56 H Creatinine 3.99 H Glucose 122 H Calcium 8.1 L Liver Function 08/12/22 Range/Units 11:42 Total Bilirubin 0.5 (0.2-1.0) mg/dl AST 26 (13-39) U/L ALT 17 (7-52) U/L Alkaline Phosphatase 152 H (34-104) U/L Albumin 2.7 L (3.4-5.0) gm/dl Urine 08/12/22 Range/Units Unknown Urine Color Yellow Urine Appearance Clear (Clear) Urine pH 5.0 (4.5-7.5) Ur Specific [place] 1.010 (1.000-1.030) Urine Protein Negative (Negative) Urine Glucose (UA) Negative (Negative) Diagnostic Findings Cervical Spine CT 08/12/22 11:27 CT cervical spine wo con CLINICAL HISTORY: 56 years-old Female with Neck trauma. Acute head and neck injury status post trauma COMPARISON: Head CT of same day, CT cervical spine 12/26/2021 TECHNIQUE: Multiple axial CT images of the cervical spine were obtained without contrast. A dose lowering technique was utilized adhering to the principles of ALARA. FINDINGS: Demineralized appearance of the bones. Anterior plate and screw fusion hardware with discectomy at C6-C7. No evidence of hardware complication. No acute fracture, subluxation or endplate erosion identified. Mild superior endplate compression at T2 is unchanged. Chronic ununited proximal left clavicular fracture. Lung apices are clear without pneumothorax. No prevertebral edema. Unremarkable soft tissues. IMPRESSION: 1. No acute cervical spine fracture or subluxation. 2. 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 3. Anterior plate-screw fusion with discectomy at C6-C7. No evidence of hardware complication. ACT 112: Negative or not required by law. The above report was generated using voice recognition software. It may contain grammatical, syntax or spelling errors. Electronically signed by: Reji Jack M.D. 08/12/2022 12:32 PM Chest X-Ray 08/12/22 11:27 SINGLE VIEW CHEST CLINICAL HISTORY: Generalized weakness. Fall. FINDINGS: An AP, portable, upright chest radiograph is compared to study dated 07/23/2022. Correlation is made with chest CT dated 11/09/2021. The cardiomediastinal silhouette is unremarkable noting atherosclerotic calcification of the thoracic aorta. Chronic interstitial thickening is similar to previous. The lungs and pleural spaces are clear. No pneumothorax is seen. The skeletal structures are osteopenic. The bony thorax is grossly intact. Fusion hardware is noted in the lower cervical spine. Intrathecal leads project over the thoracic spine. Cholecystectomy clips are noted in the right upper quadrant IMPRESSION: No acute cardiopulmonary abnormality. ACT 112: Negative or not required by law. Electronically signed by: Alvino Hadley M.D. 08/12/2022 12:[address] 08/12/22 11:27 CT SCAN OF THE BRAIN WITHOUT IV CONTRAST CLINICAL HISTORY: Head injury. Fall. COMPARISON STUDY: CT of the brain dated 12/26/2021. TECHNIQUE: Unenhanced axial CT scan of the brain is performed from the vertex to the skull base. A dose lowering technique was utilized adhering to the principles of ALARA. CT DOSE: 936.20 mGy.cm FINDINGS: Brain parenchyma: There is minimal microangiopathic change. There is no hemorrhage, mass effect, or evidence of acute territorial ischemia by CT criteria. Owens-white matter differentiation is preserved. No extra-axial fluid collection is seen. Ventricles, sulci, cisterns: Normal in configuration. Intracranial vasculature: There is atherosclerotic calcification of the cavernou s carotid arteries. Calvarium: There is no depressed calvarial fracture. Sinuses and mastoids: The visualized paranasal sinuses are clear. The mastoid air cells are well pneumatized. Orbits: The bony orbits are grossly intact. IMPRESSION: There is no hemorrhage, mass effect, or evidence of acute territorial ischemia by CT criteria. ACT 112: Negative or not required by law. Electronically signed by: Alvino Hadley M.D. 08/12/2022 12:08 PM Abdomen/Pelvis CT 08/12/22 12:44 CT SCAN OF THE ABDOMEN AND PELVIS WITHOUT IV CONTRAST CLINICAL HISTORY: Fall. Back pain. Renal insufficiency. COMPARISON STUDY: Abdominal CT dated 11/09/2021. TECHNIQUE: CT scan of the abdomen and pelvis is performed from the lung bases to the proximal femora. Images are reviewed in the axial, sagittal, and coronal planes. IV contrast was not administered for this examination due to poor renal function. Note that the examination is suboptimal without oral and IV contrast. A dose lowering technique was utilized adhering to the principles of ALARA. CT DOSE: 300.59 mGy.cm FINDINGS: Lung bases: The heart is normal in size and without pericardial effusion. Scarring/atelectasis is noted at both lung bases. No airspace consolidation or pleural effusion is identified. Liver: The unenhanced liver is cirrhotic in morphology and heterogeneous in attenuation. There is nodularity of the hepatic surface contour. Attenuation is diminished indicating a component of steatosis. There is no intrahepatic biliary ductal dilatation. Gallbladder: Surgically absent noting clips in the gallbladder fossa. Spleen: Normal in size and attenuation. Pancreas: The unenhanced pancreas is atrophic and grossly unremarkable. Adrenal glands: Unremarkable. Kidneys: The unenhanced kidneys are normal in size and without hydronephrosis. There are no renal calculi identified. There is no evidence of contour deforming renal mass lesion. Abdominal vasculature: The abdominal aorta is normal in course and caliber noting moderate atherosclerotic calcification. Stomach and bowel: There is a small hiatal hernia. Postsurgical change is noted in the stomach. There is moderate colonic fecal retention. No bowel obstruction is seen. The appendix is not identified and reported surgically absent. Peritoneum: There is no intraperitoneal free air or abdominal ascites. There is evidence of previous ventral hernia repair. Lymphadenopathy: None. Pelvic viscera: The bladder is distended but otherwise normal in appearance. The uterus is surgically absent. No adnexal lesion is seen. Skeletal structures: The skeletal structures are osteopenic. There is moderate lumbosacral spondylosis. Intersegmental device is present in the left supragluteal tissues. Leads extend noted into the lower thoracic region. There are subacute/healing right pubic ring fractures. There are also late subacute/healing fractures of the left pubic ring. The proximal femora appear intact. There is 4 subacute/healing versus insufficiency fractures of the medial right ilium seen on axial image #216 as well as the left sacral ala seen on axial image #224. There is a subacute appearing fracture by coccyx which is best seen on the sagittal reformats. No lytic or blastic lesions are seen. IMPRESSION: 1. There are subacute/healing right pubic ring fractures. 2. There are late subacute/healing left pubic ring fractures. 3. There are late subacute/healing fractures versus insufficiency fractures of the left sacral ala and the right iliac wing. 4. There is a subacute-appearing fracture of the coccyx. 5. The liver is cirrhotic in morphology and markedly heterogeneous in attenuation with evidence of steatosis. The micronodular appearance may be related to regenerative nodules. Correlate with clinical findings and serum AFP levels. GI follow-up is recommend. 6. There is no evidence of solid organ injury in the abdomen or pelvis on this unenhanced examination. 7. Bladder distention. 8. Additional findings as above. ACT 112: Negative or not required by law. Electronically signed by: Alvino Hadley M.D. 08/12/2022 2:[address] 08/12/22 12:44 CT chest diagnostic wo con CLINICAL HISTORY: back pain, fall TECHNIQUE: Multidetector row helical CT of the chest was performed. Coronal and sagittal reformations were obtained. Automated dose lowering techniques and/or adjustment according to patient size were utilized for this exam. Comparison: Comparison is made to CTA chest of 11/09/2021 FINDINGS: Lungs and pleura: Atelectasis versus scarring is seen in the dependent portions of the lungs. A few pulmonary nodules are seen including a 3 mm nodule in the left upper lobe and series 4 image 25) 4 mm pleural-based nodule in the right lower lobe (image 162). Heart and pericardium: Heart size is normal. No pericardial effusion. Vessels: Mild atherosclerotic changes in the aorta and coronary arteries. Mediastinum and melisa: Unremarkable. Chest wall and lower neck: Unremarkable. Abdomen: For findings below the diaphragm, please refer to CT of the abdomen dated the same. Bones: Degenerative changes in the thoracic spine. Spinal stimulator is seen. Partial visualization of ACDF. There is a fracture of the medial third of the left clavicle which is likely chronic. IMPRESSION: No acute abnormality and in particular no evidence of acute fracture. Likely chronic fracture of the medial third of the left clavicle noted. ACT 112: Negative or not required by law. Electronically signed by: Will Carey M.D. 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: -pt has been taking advil 600mg TID for the back pain -pt is currently receiving 125cc/hr IVF -will check BMP in 6 hrs - UA and UCx -Will get Urine Na, Urea -nephro consult -will hold both aldactone and Lasix for now --- we recommended renal diet but pt requested regular diet (even after expl aining the risk) Fall with hx of pubic fracture: -CT head: no acute finding -PT/OT -will continue narcan Other chronic conditions: Plan as above Agree with A/P by Katina Gold PA-C (3) Peripheral neuropathy Peripheral neuropathy type: polyneuropathy, unspecified Qualified Code(s): G62.9 - Polyneuropathy, unspecified (5) COPD (chronic obstructive pulmonary disease) COPD type: unspecified COPD Qualified Code(s): J44.9 - Chronic obstructive pulmonary disease, unspecified
[2022-08-12 15:13] LABS: Appearance Urine Clear (Clear); Bilirubin Urine Negative (Negative); Blood Urine Negative (Negative); Color Urine Yellow; Glucose Urine UA Negative (Negative); Ketones Urine Negative (Negative); Leukocyte Esterase Urine Negative (Negative); Nitrite Urine Negative (Negative); Protein Urine Negative (Negative); Urobilinogen Urine Negative (Negative)
[2022-08-12] MEDS ORDERED: FIRST - Mouthwash BLM 119 ML PO PRN (15:13)
[2022-08-12 16:36] LABS: Creatinine Urine Random 28.5 mg/dl
[2022-08-12] MEDS ORDERED: ONDANSETRON INJ 2 MG/ML 2 ML VIAL IV PRN (17:59)
[2022-08-12] MEDS ORDERED: ALBUTEROL HFA 8 GM INHALER INH PRN ×2 (17:59→20:23)
[2022-08-12] MEDS ORDERED: ACETAMINOPHEN 325 MG TAB PO PRN (17:59)
[2022-08-12] MEDS ORDERED: POLYETHYLENE (MIRALAX) 17 GM PACK PO PRN (17:59)
[2022-08-12] MEDS ORDERED: METHOCARBAMOL 750 MG TABLET PO PRN (17:59)
[2022-08-12] MEDS: buprenorphine HCL 8 MG SUBL SL SCH ×2 (18:47→21:26)
[2022-08-12 19:11] LABS: Calcium 7.9 mg/dl (8.6-10.3); Potassium 4.4 mmol/L (3.5-5.1)
[2022-08-12 19:16] LABS: BUN Creatinine Ratio 14.4 (10-20); Creatinine Clr Calc Pharmacy 15.5 ml/min; Est GFR (African American) 16.8 ml/min; Est GFR (Non-African American) 14.5 ml/min
[2022-08-12] MEDS ORDERED: FAMOTIDINE 40 MG TABLET PO SCH (21:00)
[2022-08-12] MEDS: LACTULOSE SYRUP 30 GM/45 ML UDP PO SCH (21:22)
[2022-08-12] MEDS: FLUTICASONE/VILANTEROL 200/25MCG 14 PUFFS/INHALER INH SCH (21:22)
[2022-08-12] MEDS: MIRTAZAPINE TAB 15 MG TAB PO SCH (21:23)
[2022-08-12] MEDS: CLOTRIMAZOLE 10 MG TROCHE BUCCAL SCH (21:23)
[2022-08-12] MEDS: PANTOprazole 40 MG TAB PO SCH (21:25)
[2022-08-12] MEDS: CALCIUM CITRATE 950 MG TAB PO SCH (21:27)
[2022-08-12] MEDS: FAMOTIDINE 10 MG TABLET PO SCH (21:28)
[2022-08-13] MEDS ORDERED: SODIUM CHLORIDE 0.9% 250 ML IV SCH (03:45)
[2022-08-13] MEDS: buprenorphine HCL 8 MG SUBL SL SCH ×4 (04:37→21:37)
[2022-08-13] MEDS ORDERED: LEVOTHYROXINE SODIUM 75 MCG TABLET PO SCH (06:30)
[2022-08-13] MEDS: FAMOTIDINE 10 MG TABLET PO SCH (08:36)
[2022-08-13] MEDS: CHOLECALCIFEROL 1,000 UNITS 25 MCG TAB PO SCH (08:36)
[2022-08-13] MEDS: FLUTICASONE/VILANTEROL 200/25MCG 14 PUFFS/INHALER INH SCH (08:36)
[2022-08-13] MEDS: LACTULOSE SYRUP 30 GM/45 ML UDP PO SCH ×2 (08:37→21:38)
[2022-08-13] MEDS: UMECLIDINIUM BROMIDE 62.5MCG/BLISTER 7 PUFFS/INHALER INH SCH (08:37)
[2022-08-13] MEDS: ADVANCED PROBIOTIC 1250 MG CAPSULE PO SCH (08:37)
[2022-08-13] MEDS: LEVOTHYROXINE SODIUM 88 MCG TABLET PO SCH (08:42)
[2022-08-13] MEDS: CALCIUM CITRATE 950 MG TAB PO SCH (08:43)
[2022-08-13] MEDS: PANTOprazole 40 MG TAB PO SCH ×2 (08:44→21:39)
[2022-08-13] MEDS ORDERED: CEROVITE ADV FORMULA TAB PO SCH (09:00)
[2022-08-13] MEDS ORDERED: POTASSIUM CHLORIDE CRTAB 20 MEQ TABCR PO SCH (09:00)
[2022-08-13] MEDS ORDERED: FLUTICASONE/VILANTEROL 100/25MCG 14 PUFFS/INHALER INH SCH (09:00)
[2022-08-13] MEDS ORDERED: APIXABAN 5 MG TABLET PO SCH (09:00)
[2022-08-13] MEDS: CLOTRIMAZOLE 10 MG TROCHE BUCCAL SCH ×5 (09:19→21:43)
[2022-08-13 09:24] LABS: Hematocrit (blood only) 26.7 % (37.0-47.0); Hemoglobin 8.5 g/dl (12.0-16.0); Mean Corpuscular Hemoglobin 28.1 pg (25.0-34.0); Mean Corpuscular Hgb Conc 31.8 g/dL (32.0-36.0); Mean Corpuscular Volume 88.1 fL (80.0-100.0); Mean Platelet Volume 10.1 fL (9.4-12.4); Platelet Count 257 K/uL (130-400); RDW Coefficient of Variation 14.2 % (11.5-14.5); RDW Standard Deviation 45.5 fL (36.4-46.3); Red Blood Count 3.03 M/uL (4.20-5.40); White Blood Count 5.55 K/ul (4.8-10.8)
[2022-08-13 09:47] LABS: BUN Creatinine Ratio 15.4 (10-20); Calcium 7.7 mg/dl (8.6-10.3); Creatinine Clr Calc Pharmacy 19.9 ml/min; Est GFR (African American) 22.6 ml/min; Est GFR (Non-African American) 19.5 ml/min; Potassium 4.1 mmol/L (3.5-5.1)
[2022-08-13] MEDS: CEROVITE ADV FORMULA TAB PO SCH (10:33)
--- NOTE | 2022-08-13 10:33 | Electrocardiogram Report ---
Test Reason : Blood Pressure : / mmHG Vent. Rate : 097 BPM Atrial Rate : 097 BPM P-R Int : 176 ms QRS Dur : 064 ms QT Int : 322 ms P-R-T Axes : 258 -05 052 degrees QTc Int : 408 ms Unusual P axis, possible ectopic atrial rhythm Low voltage QRS Poor R wave progression, consider anterior PR vs. lead placement vs. LVH Abnormal ECG When compared with ECG of 23-JUL-2022 16:01, Ectopic atrial rhythm has replaced Sinus rhythm Minimal criteria for Anterior infarct are now Present Confirmed by Mike Bradshaw ([id number]) on 08/13/2022 10:32:23 AM Referred By: Ishaan Pepe Confirmed By:Yaakov Bradshaw
[2022-08-13] MEDS: FIRST - Mouthwash BLM 119 ML PO PRN ×3 (10:48→21:37)
--- NOTE | 2022-08-13 11:49 | Nephrology Consultation ---
Date of Consultation August 13, 2022 Assessment & Plan (1) Acute renal failure: Nonoliguric prerenal stage III acute kidney injury which is recurrent (fourth episode since April 2022) and improving. she is relatively hypotensive >>given her edema would hold further IVF at this time; albumin 2.6 >> ?liver d isease, ? malnutrition -anemia while notable is consistent with hemoglobin values over the past month. -Chemistries acceptable; urinalysis bland which in this situation is reassuring -daily bmp -hold nsaids; continue to avoid other nephrotoxins History of Present Illness Reason for Consultation: KHANG Requesting Physician: Dr Wall Attending Physician: Hipolito Ruth MD History of Present Illness 56-year-old female whom I am asked to see for acute kidney injury was admitted yesterday for same after presenting to the ER after falling at home. 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 Also with history of pelvic fracture in April and sacral decub. She has been managing her pain with 3 Advil 3 times daily for most days over the past 6 months per her report; states she thought advil would be safer than tylenol for liver. Admitted to [facility] last month for a week for physical deconditioning attributed to C diff colitis and KHANG; was d/c to SNF. also admitted [facility] for a week in May for coronavirus and sacral wound with KHANG and for 4 days in April for DVT/PE w/ acute cor pulmonale and KHANG. She has a baseline creatinine of 0.8-0.9 as of late 2021. She had stage II acute kidney injury in April; stage III acute kidney injury in May with a presenting creatinine of 2.4; and stage II acute kidney injury again in June with a peak creatinine of 1.7. [facility] the past several weeks are generally 100s to 120s systolic. She has been attempting to ambulate independently for small distances and fell yesterday walking to the bathroom. On presentation here creatinine was 4 with improvement to 2.7 this morning. Transaminases are within normal limits. no sob; no voiding concerns prior to mcallister; + sacral pain w/ bedsore and skin fragility/skin tears. edema +; no chest pain. has been having worsening BL shoulder /base of neck pain for days prior to admission. Allergies Allergy/AdvReac Type Severity Reaction Status Date / Time Iodinated Contrast Media Allergy Severe ANAPHYLAXIS Verified 08/12/22 15:43 omeprazole Allergy Severe ANAPHYLAXIS Verified 08/12/22 15:43 peanut Allergy Intermediate LIPS SWELL Verified 08/12/22 15:43 FROM PEANUT SHELL DUST povidone-iodine Allergy Intermediate blisters Verified 08/12/22 15:43 [From Betadine] erythromycin base AdvReac Intermediate GI UPSET Verified 08/12/22 15:43 Home Medications Medication Instructions Recorded Confirmed Type buprenorphine HCl 8 mg sublingual 8 mg sublingual TID 10/10/21 08/12/22 History tablet furosemide 40 mg tablet 40 mg PO QPM edema 10/10/21 08/12/22 History mirtazapine 30 mg tablet 30 mg PO HS 10/10/21 08/12/22 History ondansetron HCl 8 mg tablet 8 mg PO BID PRN Nausea 10/10/21 08/12/22 History cyanocobalamin (vitamin B-12) 1,000 mcg IM .EVERY 4 WEEKS 11/09/21 08/12/22 History 1,000 mcg/mL injection solution epinephrine 0.3 mg/0.3 mL 0.3 mg IM UD PRN Allergic Reaction 11/09/21 08/12/22 History injection, auto-injector cholecalciferol (vitamin D3) 50 50 mcg PO QAM 06/09/22 08/12/22 History mcg (2,000 unit) capsule (Vitamin D3) methocarbamol 750 mg tablet 750 mg PO TID PRN MUSCLE SPASMS 06/09/22 08/12/22 History Maalox/Benadryl/Lidocaine 15 ml PO QID PRN sore mouth 08/12/22 08/12/22 History Naloxone Hcl 1 dose PO DIRECTED 08/12/22 08/12/22 History albuterol sulfate 90 mcg/actuation 2 puff inhalation Q4 PRN Shortness 08/12/22 08/12/22 History aerosol inhaler (ProAir HFA) Of Breath Or Wheezing calcium citrate 500 mg PO BID 08/12/22 08/12/22 History clotrimazole 10 mg marquise 10 mg PO .5XSDAY 08/12/22 08/12/22 History famotidine 40 mg tablet 40 mg PO AMHS 08/12/22 08/12/22 History fluticasone 250 mcg-salmeterol 50 1 inh inhalation BID 08/12/22 08/12/22 History mcg/dose blistr powdr for inhalation (Advair Diskus) furosemide 40 mg tablet (Lasix) 80 mg PO QAM 08/12/22 08/12/22 History lactobacillus combination no.4 3 0 mmu cells PO DAILY 08/12/22 08/12/22 History billion cell capsule (Probiotic) lactulose 10 gram/15 mL oral 45 ml PO BID 08/12/22 08/12/22 History solution levothyroxine 88 mcg tablet 88 mcg PO QAM 08/12/22 08/12/22 History (Synthroid) cyndrrmn-[id number] 0.4 mg-calcium 162 1 tab PO DAILY 08/12/22 08/12/22 History mg-iron 18 vt-jvtljya-myvtrl tablet potassium chloride 10 mEq 20 meq PO QAM 08/12/22 08/12/22 History tablet,extended release sennosides 8.6 mg tablet (senna) 8.6 mg PO BID 08/12/22 08/12/22 History spironolactone 100 mg tablet 200 mg PO DAILY 08/12/22 08/12/22 History tiotropium bromide 2.5 2 puff inhalation DAILY 08/12/22 08/12/22 History mcg/actuation mist for inhalation (Spiriva Respimat) zinc oxide 40 % topical ointment 1 applic topical DIRECTED PRN 08/12/22 08/12/22 History coccyx Patient History Medical History (Updated 08/13/22 @ 12:05 by Betty Mello MD, PhD) Anxiety Bronchitis hx Cirrhosis COPD (chronic obstructive pulmonary disease) Cor pulmonale w/ PE/EVT 04/2022 Degenerative disc disease Depression DVT (deep venous thrombosis) 04/2022 femoral vein, right lower extremity Dysphagia Falls frequently d/t drop foot Fibromyalgia Foot drop RIGHT Fractured pelvis 04/2022 from a fall, currently using a walker GERD (gastroesophageal reflux disease) History of COVID-19 06/2020- does not remember what her symptoms were- NO HOSPITALIZATION 05/2022 - hospitalized [facility] History of esophageal stricture Hx pulmonary embolism 04/2022- hospitalized [facility], currently taking eliquis Hyperlipidemia Hypothyroidism 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 CLICKS BUT NEVER LOCKED. Transient ischemic attack (TIA) treated in patient at [facility] 05/05/19-05/06/19. placed on Plavix & ASA Weight loss, unintentional Surgical History (Updated 08/13/22 @ 12:05 by Betty Mello MD, PhD) H/O cervical discectomy with a cage (done at [facility]) Full ROM. History of breast biopsy MULITPLE ON BILATERAL BREASTS History of cholecystectomy History of esophageal dilatation History of esophagogastroduodenoscopy (EGD) History of laminectomy LUMBAR AREA X2 Hx of colonoscopy Hx of gastric bypass Vickey en Y Hx of lumpectomy (-) RIGHT BREAST S/P insertion of spinal cord stimulator [facility]. Turns it off for surgery - has remote. S/P ANSHU-BSO Status post surgery right leg nerve decompression for foot drop Family History Family/Other Family hx of colon cancer Father Family history of diabetes mellitus Grandmother (Maternal) Family history of diabetes mellitus Other No family history of adverse response to anesthesia Social History Smoking Status: Former smoker Tobacco Type: Cigarettes Cigarettes Per Day: <1/2 ppd; Second Hand Exposure: No; Do You Dip or Chew Tobacco: Yes; Hx Alcohol Use: No Hx Substance Use: No Preferred Language: Chinese Communication Ability: Effective Av Specialist Required: No Beliefs That Will Affect Care: None marital status: Current Living Situation: Spouse and Family Current Living Situation Comment: home with spouse and adopted grandchildren. Feels Safe at Home: Yes Safety Concerns: Feels Safe At This Time Assistive Devices: Glasses Review of Systems Review of Systems: All systems reviewed & are unremarkable except as noted in HPI & below Physical Exam Constitutional: well developed, + thin, + frail appearing and cooperative; no acute distress Eyes: EOM intact bilaterally ENMT: Ears: no external ear abnormality Nose: no external nose abnormality Mouth: + dry oral mucous membranes Neck: no nuchal rigidity Respiratory: normal respiratory effort Auscultation: + diminished lung sounds Cardiovascular: Rate/Rhythm: regular rate and regular rhythm Extremities: + edema (2+ bLE) Gastrointestinal (Abdomen): Inspection/Auscultation: normal bowel sounds Percussion/Palpation: abdomen soft; abdomen nontender Musculoskeletal: Extremities: strength 5/5 throughout Skin: multiple skin tears and violaceous patches Neurologic: antonio, fluent speech, no tremor Psychiatric: Orientation: alert and oriented x 3 Speech: + pressured speech (slight) Genitourinary: mcallister w/ ample urine Results & Data Vital Signs (Past 12 Hours) Vital Signs Temp Pulse Pulse Resp BP Pulse Ox O2 Del Method 08/13/22 07:58 36.4 C L 77 16 91/57 L 96 Room Air 08/13/22 07:47 66 08/13/22 04:29 88 94/57 L 08/13/22 03:26 36.8 C 79 16 82/52 L 94 Room Air 08/13/22 01:08 71 95/59 L Laboratory Results 08/13/22 08:51 08/13/22 08:51 Urinalysis bland Diagnostic Findings Chest CT Noncon No acute abnormality and in particular no evidence of acute fracture. Likely chronic fracture of the medial third of the left clavicle note CT abdomen pelvis Noncon Lung bases: The heart is normal in size and without pericardial effusion. Scarring/atelectasis is noted at both lung bases. No airspace consolidation or pleural effusion is identified. Liver: The unenhanced liver is cirrhotic in morphology and heterogeneous in attenuation. There is nodularity of the hepatic surface contour. Attenuation is diminished indicating a component of steatosis. There is no intrahepatic biliary ductal dilatation. Gallbladder: Surgically absent noting clips in the gallbladder fossa. Spleen: Normal in size and attenuation. Pancreas: The unenhanced pancreas is atrophic and grossly unremarkable. Adrenal glands: Unremarkable. Kidneys: The unenhanced kidneys are normal in size and without hydronephrosis. There are no renal calculi identified. There is no evidence of contour deforming renal mass lesion. Abdominal vasculature: The abdominal aorta is normal in course and caliber noting moderate atherosclerotic calcification. Stomach and bowel: There is a small hiatal hernia. Postsurgical change is noted in the stomach. There is moderate colonic fecal retention. No bowel obstruction is seen. The appendix is not identified and reported surgically absent. Peritoneum: There is no intraperitoneal free air or abdominal ascites. There is evidence of previous ventral hernia repair. Lymphadenopathy: None. Pelvic viscera: The bladder is distended but otherwise normal in appearance. The uterus is surgically absent. No adnexal lesion is seen. Skeletal structures: The skeletal structures are osteopenic. There is moderate lumbosacral spondylosis. Intersegmental device is present in the left supragluteal tissues. Leads extend noted into the lower thoracic region. There are subacute/healing right pubic ring fractures. There are also late subacute/healing fractures of the left pubic ring. The proximal femora appear intact. There is 4 subacute/healing versus insufficiency fractures of the medial right ilium seen on axial image #216 as well as the left sacral ala seen on axial image #224. There is a subacute appearing fracture by coccyx which is best seen on the sagittal reformats. No lytic or blastic lesions are seen. IMPRESSION: 1. There are subacute/healing right pubic ring fractures. 2. There are late subacute/healing left pubic ring fractures. 3. There are late subacute/healing fractures versus insufficiency fractures of the left sacral ala and the right iliac wing. 4. There is a subacute-appearing fracture of the coccyx. 5. The liver is cirrhotic in morphology and markedly heterogeneous in attenuation with evidence of steatosis. The micronodular appearance may be related to regenerative nodules. Correlate with clinical findings and serum AFP levels. GI follow-up is recommend. 6. There is no evidence of solid organ injury in the abdomen or pelvis on this unenhanced examination. 7. Bladder distention. 8. Additional findings as above. Head CT: No acute intracranial process Chest x-ray: No acute cardiopulmonary process
--- NOTE | 2022-08-13 19:04 | Hospitalist Progress Note ---
Date of Service August 13, 2022 Assessment & Plan (1) KHANG (acute kidney injury): (2) Fall: (3) Peripheral neuropathy: (4) Liver cirrhosis secondary to SOTOMAYOR: (5) COPD (chronic obstructive pulmonary disease): (6) Status post gastric bypass for obesity: (7) Mood disorder: (8) Depression: (9) Anxiety: (10) Hypothyroidism: (11) Fibromyalgia: (12) Hyperlipidemia: Plan Patient is a 56 yo F with a PMH of cirrhosis secondary to SOTOMAYOR with known abdominal ascites, COPD, chronic hyperventilation syndrome, history of DVT on anticoagulation, history of gastric bypass, fibromyalgia, thoracic and lumbosacral neuritis, ongoing tobacco use and other medical problems listed below who presents after fall earlier today at home. Acute kidney injury Baseline Cr~1 In setting of increased NSAIDs since fall with multiple fractures last February. States she takes Advil almost every day and sometimes takes up to 9 capsules in 24hr period --Received gentle IV fluids Planning to hold further IV fluids given significant edema Avoid NSAIDs Diuretics held for now Avoid nephrotoxic agents as able Appreciate nephrology input Monitor renal function Cr 2.6 today Fall Imaging reveals multiple chronic or healing fractures but no acute traumatic findings on CT head, C spine CT, chest CT or CT abd/pelvis PT/OT evaluations, Fall precautions COPD Ongoing tobacco use but significant less, >60 pack years, at respiratory baseline. Continue home inhalers History of PE Continue Eliquis Mood disorder Continue mirtazapine Fibromyalgia, chronic pain syndrome Continue buprenorphine TID, PRN methocarbamol Mouth pain Cont Magic Swizzle 5x/day PRN as prescribed by PCP Hypothyroidism Continue levothyroxine DVT Px: Eliquis Code status: FULL CODE Disposition PT OT prior to discharge Admission and Anticipated Discharge Date Admission Date: August 12, 2022 Subjective Patient is seen and examined at bedside States having chronic pain Offers no new complaints today Reports poor sleep while hospitalized Denies any chest pain, dyspnea, dizziness, nausea, abdominal pain Renal function slowly improving No other complaints Review of Systems Review of Systems: All systems reviewed & are unremarkable except as noted in Subjective Physical Exam Physical Exam: Physical Exam: Vitals signs as noted above General Appearance: Thin, frail, chronically appearing, no apparent distress Head: normocephalic, Atraumatic Eyes: normal inspection, EOMI Neck: supple, Trachea midline Respiratory/Chest: Normal breath sounds, CTA, No accessory muscle use Cardiovascular: S1, S2, No murmur Abdomen/GI:Soft, Non tender, Bowel sounds present Extremities/Musculoskeletal:normal inspection, 2+ Pedal edema Neurologic/Psych:AAOX3, grossly no focal neurological deficits Skin: normal color, warm, multiple abrasions on extremities Results & Data Results & Data Vital Signs (Past 12 Hours) Vital Signs Temp Pulse Pulse Resp BP Pulse Ox O2 Del Method 08/13/22 16:00 75 08/13/22 15:51 37.1 C 76 16 95/66 L 98 Room Air 08/13/22 11:00 36.7 C 76 16 78/51 L 100 Room Air 08/13/22 12:57 91/50 L 08/13/22 07:58 36.4 C L 77 16 91/57 L 96 Room Air 08/13/22 07:47 66 Laboratory Results Short CBC 08/13/22 Range/Units 08:51 WBC 5.55 (4.8-10.8) K/ul Hgb 8.5 L (12.0-16.0) g/dl Hct 26.7 L (37.0-47.0) % Plt Count 257 (130-400) K/uL BMP 08/12/22 08/13/22 18:34 08:51 Sodium 136 138 Potassium 4.4 4.1 Chloride 104 109 H Carbon Dioxide 24 23 BUN 49 H 41 H Creatinine 3.40 H D 2.67 H D Glucose 81 82 Calcium 7.9 L 7.7 L (3) Peripheral neuropathy Peripheral neuropathy type: polyneuropathy, unspecified Qualified Code(s): G62.9 - Polyneuropathy, unspecified (5) COPD (chronic obstructive pulmonary disease) COPD type: unspecified COPD Qualified Code(s): J44.9 - Chronic obstructive pulmonary disease, unspecified
[2022-08-13] MEDS: MIRTAZAPINE TAB 15 MG TAB PO SCH (21:39)
[2022-08-13] MEDS: APIXABAN 5 MG TABLET PO SCH (21:39)
[2022-08-14] MEDS: CLOTRIMAZOLE 10 MG TROCHE BUCCAL SCH ×3 (07:59→13:36)
[2022-08-14] MEDS: LACTULOSE SYRUP 30 GM/45 ML UDP PO SCH (08:01)
[2022-08-14] MEDS: FAMOTIDINE 10 MG TABLET PO SCH (08:01)
[2022-08-14] MEDS: CEROVITE ADV FORMULA TAB PO SCH (08:02)
[2022-08-14] MEDS: ADVANCED PROBIOTIC 1250 MG CAPSULE PO SCH (08:02)
[2022-08-14] MEDS: CALCIUM CITRATE 950 MG TAB PO SCH (08:02)
[2022-08-14] MEDS: CHOLECALCIFEROL 1,000 UNITS 25 MCG TAB PO SCH (08:03)
[2022-08-14] MEDS: PANTOprazole 40 MG TAB PO SCH (08:04)
[2022-08-14] MEDS: FIRST - Mouthwash BLM 119 ML PO PRN (08:04)
[2022-08-14] MEDS: APIXABAN 5 MG TABLET PO SCH (08:04)
[2022-08-14] MEDS: UMECLIDINIUM BROMIDE 62.5MCG/BLISTER 7 PUFFS/INHALER INH SCH (08:05)
[2022-08-14] MEDS: FLUTICASONE/VILANTEROL 200/25MCG 14 PUFFS/INHALER INH SCH (08:05)
[2022-08-14] MEDS: LEVOTHYROXINE SODIUM 88 MCG TABLET PO SCH (08:05)
[2022-08-14] MEDS: buprenorphine HCL 8 MG SUBL SL SCH ×2 (08:08→13:38)
[2022-08-14 08:27] LABS: Hematocrit (blood only) 25.7 % (37.0-47.0); Hemoglobin 7.9 g/dl (12.0-16.0); Mean Corpuscular Hemoglobin 27.6 pg (25.0-34.0); Mean Corpuscular Hgb Conc 30.7 g/dL (32.0-36.0); Mean Corpuscular Volume 89.9 fL (80.0-100.0); Mean Platelet Volume 10.2 fL (9.4-12.4); Platelet Count 229 K/uL (130-400); RDW Coefficient of Variation 14.1 % (11.5-14.5); RDW Standard Deviation 46.1 fL (36.4-46.3); Red Blood Count 2.86 M/uL (4.20-5.40); White Blood Count 6.74 K/ul (4.8-10.8)
[2022-08-14 08:49] LABS: BUN Creatinine Ratio 23.4 (10-20); Calcium 7.6 mg/dl (8.6-10.3); Creatinine Clr Calc Pharmacy 38.7 ml/min; Est GFR (African American) 50.6 ml/min; Est GFR (Non-African American) 43.6 ml/min; Potassium 4.6 mmol/L (3.5-5.1)
[2022-08-14 10:11] LABS: Urea Nitrogen, Random Urine 178 mg/dL
--- NOTE | 2022-08-14 10:49 | Nephrology Progress Note ---
Date of Service August 14, 2022 Assessment & Plan (1) Acute renal failure: Plan: Nonoliguric prerenal stage III acute kidney injury which is recurrent (fourth episode since April 2022, though more severe this time, priors no worse than Stage 2) and improving. baseline creatinine late 2021 0.8-0.9. she is relatively hypotensive compared to clinic/other recent hospital readings >>given her edema would hold further IVF at this time; albumin 2.6 >> ?liver disease, ? malnutrition -anemia while notable is consistent with hemoglobin values over the past month, but was not present last fall 2021 >> needs work up as IP/OP; not lindaley d/t r enal dz -Chemistries acceptable apart from low BG; urinalysis bland which in this situation is reassuring -daily bmp -hold nsaids; continue to avoid other nephrotoxins >>would be sure to evaluate sacral wound for role in hypotension NEPHROLOGY D/C RECS -NO NSAIDS -bmp weekly x 3 to be ordered by renal RN -hospital d/c appt in 2-3 wks -OUTPATIENT work up of anemia (new this spring) >>>recommend verifying that current diuretic doses as recorded in H&P align w/ diuretic dosing at most recent [facility] encounter; assuming they do, recommend resuming diuretics at 50 % of prior to admission dose -pt should log daily standing weights if possible at home -if she's resuming diuretics, <2 gm daily Na diet and fluid limit 1.5 L daily >> pls give teaching on this Admission and Anticipated Discharge Date Admission Date: August 12, 2022 Subjective c/o buttock pain as prev; else no sob or n/v; denies voiding c/o or concern w/ edema Review of Systems Review of Systems: All systems reviewed & are unremarkable except as noted in Subjective Physical Exam Constitutional: well developed, + thin, + frail appearing and cooperative; no acute distress Eyes: EOM intact bilaterally ENMT: Ears: no external ear abnormality Nose: no external nose abnormality Mouth: + dry oral mucous membranes Neck: no nuchal rigidity Respiratory: normal respiratory effort Auscultation: + diminished lung sounds Cardiovascular: Rate/Rhythm: regular rate and regular rhythm Extremities: + edema (2+ bLE distally) Gastrointestinal (Abdomen): Inspection/Auscultation: normal bowel sounds Percussion/Palpation: abdomen soft; abdomen nontender Musculoskeletal: Extremities: strength 5/5 throughout Psychiatric: Orientation: alert and oriented x 3 Speech: + pressured speech (slight) Results & Data Vital Signs (Past 12 Hours) Vital Signs Temp Pulse Pulse Resp BP Pulse Ox O2 Del Method 08/14/22 07:49 36.8 C 89 16 98/63 L 98 Room Air 08/14/22 07:42 77 08/14/22 03:11 36.9 C 77 18 107/64 96 Room Air 08/13/22 23:18 37.1 C 81 18 102/66 99 Room Air Laboratory Results 08/14/22 08:02 08/14/22 08:02
--- NOTE | 2022-08-14 13:18 | Hospitalist Progress Note ---
Date of Service August 14, 2022 Assessment & Plan (1) KHANG (acute kidney injury): (2) Fall: (3) Peripheral neuropathy: (4) Liver cirrhosis secondary to SOTOMAYOR: (5) COPD (chronic obstructive pulmonary disease): (6) Status post gastric bypass for obesity: (7) Mood disorder: (8) Depression: (9) Anxiety: (10) Hypothyroidism: (11) Fibromyalgia: (12) Hyperlipidemia: Plan Patient is a 56 yo F with a PMH of cirrhosis secondary to SOTOMAYOR with known abdominal ascites, COPD, chronic hyperventilation syndrome, history of DVT on anticoagulation, history of gastric bypass, fibromyalgia, thoracic and lumbosacral neuritis, ongoing tobacco use and other medical problems listed below who presents after fall earlier today at home. Acute kidney injury Baseline Cr~1 In setting of increased NSAIDs since fall with multiple fractures last February. States she takes Advil almost every day and sometimes takes up to 9 capsules in 24hr period --Received gentle IV fluids Planning to hold further IV fluids given significant edema Avoid NSAIDs Diuretics held for now Avoid nephrotoxic agents as able Appreciate nephrology input Monitor renal function Cr 1.37 today Needs follow-up with nephrology upon discharge Fall Imaging reveals multiple chronic or healing fractures but no acute traumatic findings on CT head, C spine CT, chest CT or CT abd/pelvis PT/OT evaluations, Fall precautions COPD Ongoing tobacco use but significant less, >60 pack years, at respiratory baseline. Continue home inhalers History of PE Continue Eliquis Mood disorder Continue mirtazapine Fibromyalgia, chronic pain syndrome Continue buprenorphine TID, PRN methocarbamol Mouth pain Cont Magic Swizzle 5x/day PRN as prescribed by PCP Hypothyroidism Continue levothyroxine Chronic anemia Hemoglobin drop likely dilutional No active bleeding issues while hospitalized Further work-up as outpatient DVT Px: Eliquis Code status: FULL CODE Disposition Home Admission and Anticipated Discharge Date Admission Date: August 12, 2022 Subjective Patient is seen and examined at bedside No new complaints Prefers to be discharged today Renal function continues to improve Discussed with nephrology today Denies any chest pain, dyspnea, dizziness, nausea, vomiting, abdominal pain Review of Systems Review of Systems: All systems reviewed & are unremarkable except as noted in Subjective Physical Exam Physical Exam: Physical Exam: Vitals signs as noted above General Appearance: Thin, frail, chronically appearing, no apparent distress Head: normocephalic, Atraumatic Eyes: normal inspection, EOMI Neck: supple, Trachea midline Respiratory/Chest: Normal breath sounds, CTA, No accessory muscle use Cardiovascular: S1, S2, No murmur Abdomen/GI:Soft, Non tender, Bowel sounds present Extremities/Musculoskeletal:normal inspection, 2+ Pedal edema Neurologic/Psych:AAOX3, grossly no focal neurological deficits Skin: normal color, warm, multiple abrasions on extremities Results & Data Results & Data Vital Signs (Past 12 Hours) Vital Signs Temp Pulse Pulse Resp BP Pulse Ox O2 Del Method 08/14/22 11:47 36.7 C 76 16 95/61 L 97 Room Air 08/14/22 07:49 36.8 C 89 16 98/63 L 98 Room Air 08/14/22 07:42 77 08/14/22 03:11 36.9 C 77 18 107/64 96 Room Air Laboratory Results Short CBC 08/14/22 Range/Units 08:02 WBC 6.74 (4.8-10.8) K/ul Hgb 7.9 L (12.0-16.0) g/dl Hct 25.7 L (37.0-47.0) % Plt Count 229 (130-400) K/uL BMP 08/14/22 08:02 Sodium 142 Potassium 4.6 Chloride 115 H Carbon Dioxide 25 BUN 32 H Creatinine 1.37 H D Glucose 68 L Calcium 7.6 L (3) Peripheral neuropathy Peripheral neuropathy type: polyneuropathy, unspecified Qualified Code(s): G62.9 - Polyneuropathy, unspecified (5) COPD (chronic obstructive pulmonary disease) COPD type: unspecified COPD Qualified Code(s): J44.9 - Chronic obstructive pulmonary disease, unspecified
--- NOTE | 2022-08-14 13:34 | Discharge Summary ---
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 Patient normally ambulates with a scooter but tries to ambulate independently for small distances and fell walking to the bathroom, hitting her head after tripping over an open box. Denies loss of consciousness. History of pubic ring fractures last February. Has been taking 3 Advil 3x/day for most days over the past 6 months since fractures and worsening neck pain. Also having increased frequency of urination but denies dysuria, hematuria. No fever or chills, lightheadedness, headache, chest pain, shortness of breath, nausea, vomiting, abdominal pain, or changes to bowel habits. Admission Exam Per Admitting Provider PE: NAD, well developed Cardiac: normal S1/S2, no murmur Lungs: CTA, no wheezing or crackles Abd: ND, soft, NT MSK: moderate b/l LE pitting edema Psych: AAox3, normal affect Principal Diagnosis Acute kidney injury Mechanical fall Discharge Data Allergies Allergy/AdvReac Type Severity Reaction Status Date / Time Iodinated Contrast Media Allergy Severe ANAPHYLAXIS Verified 08/12/22 15:43 omeprazole Allergy Severe ANAPHYLAXIS Verified 08/12/22 15:43 peanut Allergy Intermediate LIPS SWELL Verified 08/12/22 15:43 FROM PEANUT SHELL DUST povidone-iodine Allergy Intermediate blisters Verified 08/12/22 15:43 [From Betadine] erythromycin base AdvReac Intermediate GI UPSET Verified 08/12/22 15:43 Consultations 08/12/22 14:10 ED Decision to Admit Stat 08/12/22 15:50 Consult Nephrology Routine Procedures Performed Laboratory Results WBC 6.74 K/ul (4.8-10.8) 08/14/22 08:02 RBC 2.86 M/uL (4.20-5.40) L 08/14/22 08:02 Hgb 7.9 g/dl (12.0-16.0) L 08/14/22 08:02 Hct 25.7 % (37.0-47.0) L 08/14/22 08:02 MCV 89.9 fL (80.0-100.0) 08/14/22 08:02 MCH 27.6 pg (25.0-34.0) 08/14/22 08:02 MCHC 30.7 g/dL (32.0-36.0) L 08/14/22 08:02 RDW Std Deviation 46.1 fL (36.4-46.3) 08/14/22 08:02 RDW Coeff of Lionel 14.1 % (11.5-14.5) 08/14/22 08:02 Plt Count 229 K/uL (130-400) 08/14/22 08:02 MPV 10.2 fL (9.4-12.4) 08/14/22 08:02 Immature Gran % (Auto) 0.2 % 08/12/22 11:42 Neut % (Auto) 58.4 % 08/12/22 11:42 Lymph % (Auto) 31.9 % 08/12/22 11:42 Routt % (Auto) 9.0 % 08/12/22 11:42 Eos % (Auto) 0.2 % 08/12/22 11:42 Baso % (Auto) 0.3 % 08/12/22 11:42 Neut # (Auto) 3.51 K/uL (1.40-6.50) 08/12/22 11:42 Lymph # (Auto) 1.92 K/uL (1.2-3.4) 08/12/22 11:42 Routt # (Auto) 0.54 K/uL (0.11-0.59) 08/12/22 11:42 Eos # (Auto) 0.01 K/uL (0-0.50) 08/12/22 11:42 Baso # (Auto) 0.02 K/uL (0-0.2) 08/12/22 11:42 Immature Gran # (Auto) 0.01 K/uL (0.01-0.20) 08/12/22 11:42 PT 11.6 Seconds (9.0-12.0) 08/12/22 11:42 INR 1.1 (0.9-1.1) 08/12/22 11:42 APTT 23.4 Seconds (21.0-31.0) 08/12/22 11:42 PTT Ratio 0.8 08/12/22 11:42 Sodium 142 mmol/L (136-145) 08/14/22 08:02 Potassium 4.6 mmol/L (3.5-5.1) 08/14/22 08:02 Chloride 115 mmol/L (98-107) H 08/14/22 08:02 Carbon Dioxide 25 mmol/L (21-32) 08/14/22 08:02 Anion Gap 2 (3-11) L 08/14/22 08:02 BUN 32 mg/dl (6-23) H 08/14/22 08:02 Creatinine 1.37 mg/dl (0.6-1.2) H D 08/14/22 08:02 Est Cr Clr Drug Dosing 38.7 ml/min 08/14/22 08:02 Est GFR ( Amer) 50.6 ml/min 08/14/22 08:02 Est GFR (Non-Af Amer) 43.6 ml/min 08/14/22 08:02 BUN/Creatinine Ratio 23.4 (10-20) H 08/14/22 08:02 Glucose 68 mg/dl (70-99(Fasting)) L 08/14/22 08:02 Calcium 7.6 mg/dl (8.6-10.3) L 08/14/22 08:02 Total Bilirubin 0.5 mg/dl (0.2-1.0) 08/12/22 11:42 AST 26 U/L (13-39) 08/12/22 11:42 ALT 17 U/L (7-52) 08/12/22 11:42 Alkaline Phosphatase 152 U/L (34-104) H 08/12/22 11:42 Troponin I High Sens 7.5 pg/ml (0-14) 08/12/22 11:42 Total Protein 5.8 gm/dl (6.0-8.3) L 08/12/22 11:42 Albumin 2.7 gm/dl (3.4-5.0) L 08/12/22 11:42 Globulin 3.1 gm/dl (2.5-4.0) 08/12/22 11:42 Albumin/Globulin Ratio 0.9 (0.9-2) 08/12/22 11:42 Urine Color Yellow 08/12/22 Unknown Urine Appearance Clear (Clear) 08/12/22 Unknown Urine pH 5.0 (4.5-7.5) 08/12/22 Unknown Ur Specific Sunray 1.010 (1.000-1.030) 08/12/22 Unknown Urine Protein Negative (Negative) 08/12/22 Unknown Urine Glucose (UA) Negative (Negative) 08/12/22 Unknown Urine Ketones Negative (Negative) 08/12/22 Unknown Urine Blood Negative (Negative) 08/12/22 Unknown Urine Nitrite Negative (Negative) 08/12/22 Unknown Urine Bilirubin Negative (Negative) 08/12/22 Unknown Urine Urobilinogen Negative (Negative) 08/12/22 Unknown Ur Leukocyte Esterase Negative (Negative) 08/12/22 Unknown Ur Random Creatinine 28.5 mg/dl 08/12/22 Unknown Ur Random Sodium 76 mmol/L 08/12/22 Unknown Ur Random Urea Nitrogn 178 mg/dL 08/12/22 15:16 SARS-CoV-2, RNA, NAAT NEGATIVE (NEGATIVE) 08/12/22 Unknown Impressions Cervical Spine CT 08/12/22 11:27 CT cervical spine wo con CLINICAL HISTORY: 56 years-old Female with Neck trauma. Acute head and neck injury status post trauma COMPARISON: Head CT of same day, CT cervical spine 12/26/2021 TECHNIQUE: Multiple axial CT images of the cervical spine were obtained without contrast. A dose lowering technique was utilized adhering to the principles of ALARA. FINDINGS: Demineralized appearance of the bones. Anterior plate and screw fusion hardware with discectomy at C6-C7. No evidence of hardware complication. No acute fracture, subluxation or endplate erosion identified. Mild superior endplate compression at T2 is unchanged. Chronic ununited proximal left clavicular fracture. Lung apices are clear without pneumothorax. No prevertebral edema. Unremarkable soft tissues. IMPRESSION: 1. No acute cervical spine fracture or subluxation. 2. 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 3. Anterior plate-screw fusion with discectomy at C6-C7. No evidence of hardware complication. ACT 112: Negative or not required by law. The above report was generated using voice recognition software. It may contain grammatical, syntax or spelling errors. Electronically signed by: Reji Jack M.D. 08/12/2022 12:32 PM Chest X-Ray 08/12/22 11:27 SINGLE VIEW CHEST CLINICAL HISTORY: Generalized weakness. Fall. FINDINGS: An AP, portable, upright chest radiograph is compared to study dated 07/23/2022. Correlation is made with chest CT dated 11/09/2021. The cardiomediastinal silhouette is unremarkable noting atherosclerotic calcification of the thoracic aorta. Chronic interstitial thickening is similar to previous. The lungs and pleural spaces are clear. No pneumothorax is seen. The skeletal structures are osteopenic. The bony thorax is grossly intact. Fusion hardware is noted in the lower cervical spine. Intrathecal leads project over the thoracic spine. Cholecystectomy clips are noted in the right upper q uadrant IMPRESSION: No acute cardiopulmonary abnormality. ACT 112: Negative or not required by law. Electronically signed by: Alvino Hadley M.D. 08/12/2022 12:[address] 08/12/22 11:27 CT SCAN OF THE BRAIN WITHOUT IV CONTRAST CLINICAL HISTORY: Head injury. Fall. COMPARISON STUDY: CT of the brain dated 12/26/2021. TECHNIQUE: Unenhanced axial CT scan of the brain is performed from the vertex to the skull base. A dose lowering technique was utilized adhering to the principles of ALARA. CT DOSE: 936.20 mGy.cm FINDINGS: Brain parenchyma: There is minimal microangiopathic change. There is no hemorrhage, mass effect, or evidence of acute territorial ischemia by CT criteria. Owens-white matter differentiation is preserved. No extra-axial fluid collection is seen. Ventricles, sulci, cisterns: Normal in configuration. Intracranial vasculature: There is atherosclerotic calcification of the cavernous carotid arteries. Calvarium: There is no depressed calvarial fracture. Sinuses and mastoids: The visualized paranasal sinuses are clear. The mastoid air cells are well pneumatized. Orbits: The bony orbits are grossly intact. IMPRESSION: There is no hemorrhage, mass effect, or evidence of acute territorial ischemia by CT criteria. ACT 112: Negative or not required by law. Electronically signed by: Alvino Hadley M.D. 08/12/2022 12:08 PM Abdomen/Pelvis CT 08/12/22 12:44 CT SCAN OF THE ABDOMEN AND PELVIS WITHOUT IV CONTRAST CLINICAL HISTORY: Fall. Back pain. Renal insufficiency. COMPARISON STUDY: Abdominal CT dated 11/09/2021. TECHNIQUE: CT scan of the abdomen and pelvis is performed from the lung bases to the proximal femora. Images are reviewed in the axial, sagittal, and coronal planes. IV contrast was not administered for this examination due to poor renal function. Note that the examination is suboptimal without oral and IV contrast. A dose lowering technique was utilized adhering to the principles of ALARA. CT DOSE: 300.59 mGy.cm FINDINGS: Lung bases: The heart is normal in size and without pericardial effusion. Scarring/atelectasis is noted at both lung bases. No airspace consolidation or pleural effusion is identified. Liver: The unenhanced liver is cirrhotic in morphology and heterogeneous in attenuation. There is nodularity of the hepatic surface contour. Attenuation is diminished indicating a component of steatosis. There is no intrahepatic biliary ductal dilatation. Gallbladder: Surgically absent noting clips in the gallbladder fossa. Spleen: Normal in size and attenuation. Pancreas: The unenhanced pancreas is atrophic and grossly unremarkable. Adrenal glands: Unremarkable. Kidneys: The unenhanced kidneys are normal in size and without hydronephrosis. There are no renal calculi identified. There is no evidence of contour deforming renal mass lesion. Abdominal vasculature: The abdominal aorta is normal in course and caliber noting moderate atherosclerotic calcification. Stomach and bowel: There is a small hiatal hernia. Postsurgical change is noted in the stomach. There is moderate colonic fecal retention. No bowel obstruction is seen. The appendix is not identified and reported surgically absent. Peritoneum: There is no intraperitoneal free air or abdominal ascites. There is evidence of previous ventral hernia repair. Lymphadenopathy: None. Pelvic viscera: The bladder is distended but otherwise normal in appearance. The uterus is surgically absent. No adnexal lesion is seen. Skeletal structures: The skeletal structures are osteopenic. There is moderate lumbosacral spondylosis. Intersegmental device is present in the left supragluteal tissues. Leads extend noted into the lower thoracic region. There are subacute/healing right pubic ring fractures. There are also late subacute/healing fractures of the left pubic ring. The proximal femora appear intact. There is 4 subacute/healing versus insufficiency fractures of the medial right ilium seen on axial image #216 as well as the left sacral ala seen on axial image #224. There is a subacute appearing fracture by coccyx which is best seen on the sagittal reformats. No lytic or blastic lesions are seen. IMPRESSION: 1. There are subacute/healing right pubic ring fractures. 2. There are late subacute/healing left pubic ring fractures. 3. There are late subacute/healing fractures versus insufficiency fractures of the left sacral ala and the right iliac wing. 4. There is a subacute-appearing fracture of the coccyx. 5. The liver is cirrhotic in morphology and markedly heterogeneous in attenuation with evidence of steatosis. The micronodular appearance may be related to regenerative nodules. Correlate with clinical findings and serum AFP levels. GI follow-up is recommend. 6. There is no evidence of solid organ injury in the abdomen or pelvis on this unenhanced examination. 7. Bladder distention. 8. Additional findings as above. ACT 112: Negative or not required by law. Electronically signed by: Alvino Hadley M.D. 08/12/2022 2:[address] 08/12/22 12:44 CT chest diagnostic wo con CLINICAL HISTORY: back pain, fall TECHNIQUE: Multidetector row helical CT of the chest was performed. Coronal and sagittal reformations were obtained. Automated dose lowering techniques and/or adjustment according to patient size were utilized for this exam. Comparison: Comparison is made to CTA chest of 11/09/2021 FINDINGS: Lungs and pleura: Atelectasis versus scarring is seen in the dependent portions of the lungs. A few pulmonary nodules are seen including a 3 mm nodule in the left upper lobe and series 4 image 25) 4 mm pleural-based nodule in the right lower lobe (image 162). Heart and pericardium: Heart size is normal. No pericardial effusion. Vessels: Mild atherosclerotic changes in the aorta and coronary arteries. Mediastinum and melisa: Unremarkable. Chest wall and lower neck: Unremarkable. Abdomen: For findings below the diaphragm, please refer to CT of the abdomen dated the same. Bones: Degenerative changes in the thoracic spine. Spinal stimulator is seen. Partial visualization of ACDF. There is a fracture of the medial third of the left clavicle which is likely chronic. IMPRESSION: No acute abnormality and in particular no evidence of acute fracture. Likely chronic fracture of the medial third of the left clavicle noted. ACT 112: Negative or not required by law. Electronically signed by: Will Carey M.D. 08/12/2022 2:21 PM Ordered Studies 08/12/22 11:27 CT cervical spine wo con Stat CT head/brain wo con Stat 08/12/22 12:44 CT abd pelvis wo con Stat CT chest diagnostic wo con Stat Hospital Course (1) KHANG (acute kidney injury): (2) Fall: (3) Peripheral neuropathy: (4) Liver cirrhosis secondary to RODRIGUES: (5) COPD (chronic obstructive pulmonary disease): (6) Status post gastric bypass for obesity: (7) Mood disorder: (8) Depression: (9) Anxiety: (10) Hypothyroidism: (11) Fibromyalgia: (12) Hyperlipidemia: Plan Patient is a 56 yo F with a PMH of cirrhosis secondary to RODRIGEUS with known abdominal ascites, COPD, chronic hyperventilation syndrome, history of DVT on anticoagulation, history of gastric bypass, fibromyalgia, thoracic and lumbosacral neuritis, ongoing tobacco use and other medical problems listed below who presents after fall earlier today at home. Acute kidney injury Baseline Cr~1 In setting of increased NSAIDs since fall with multiple fractures last February. States she takes Advil almost every day and sometimes takes up to 9 capsules in 24hr period --Received gentle IV fluids Planning to hold further IV fluids given significant edema Avoid NSAIDs Diuretics held for now Avoid nephrotoxic agents as able Appreciate nephrology input Monitor renal function Cr 1.37 today Needs follow-up with nephrology upon discharge Fall Imaging reveals multiple chronic or healing fractures but no acute traumatic findings on CT head, C spine CT, chest CT or CT abd/pelvis PT/OT evaluations, Fall precautions COPD Ongoing tobacco use but significant less, >60 pack years, at respiratory baseline. Continue home inhalers History of PE Continue Eliquis Mood disorder Continue mirtazapine Fibromyalgia, chronic pain syndrome Continue buprenorphine TID, PRN methocarbamol Mouth pain Cont Magic Swizzle 5x/day PRN as prescribed by PCP Hypothyroidism Continue levothyroxine Chronic anemia Hemoglobin drop likely dilutional No active bleeding issues while hospitalized Further work-up as outpatient DVT Px: Eliquis Code status: FULL CODE Disposition Home Total Time Total Time Spent Total Time Spent (In Minutes): 54 minutes Discharge Plan Discharge Items Patient Disposition: Home - Self-Care Reason For Visit: FALL, KHANG Discharge Diagnosis: Acute kidney injury Mechanical fall Activity: Per Instructions section Exercise/Sports: Wait until after follow-up appointment Non-emergency contact: Primary Care Provider and Stave Planer Tender Call non-emergency contact if: you have any medication questions, your symptoms worsen and your pain is concerning for you Follow-up/Referrals: Ishaan Pepe MD [Primary Care Provider] - (Date & Time 08/20/2022 11:20 AM Provider Ishaan Pepe MD Department General Internal Medicine [facility] ) Diet: Heart Healthy and Low Sodium (2gm) Fluids: 1500ml (6 cups) Addtl Attending Provider Instructions: Follow-up with your primary care physician Dr. Pepe in 1 week as advised Follow-up with your professional services specialist in 2 to 3 weeks as recommended. --- Get blood test to monitor your kidney function every week for 3 weeks as recommended by your professional services specialist. --- Your furosemide and spironolactone doses were decreased as recommended by your professional services specialist. Follow-up with your physician for further recommendations. --- Monitor your weight on daily basis and discuss with your physician for further recommendations --- Continue fluid restriction and low-sodium diet as recommended by your professional services specialist. ---Do not take group of medications belonging to NSAIDs group -can cause worsening of your kidney function. List Of these medications includes but not limited to: Diclofenac Ibuprofen, Motrin, Advil Toradol,ketorolac Naproxen, Aleve, Naprosyn You can take Tylenol as needed for pain or fever When buying uhnr-thi-eagfocq pain medications please consult with pharmacy if you are not sure regarding ingredients, as a lot of the pain medications have combination of NSAIDs and Tylenol. Seek immediate medical attention if your symptoms reoccur or worsen Please take all medications as instructed on discharge list below. Please call if you have any questions or problems. You can reach a [facility] hospitalist on duty at [facility] 24 hours a day by calling [phone] Pending Studies at Discharge: No Stand-Alone Forms: My [facility], Smoking Cessation Medications and DC Order Prescriptions: New pantoprazole 40 mg Tablet,Delayed Release (Dr/Ec) 40 mg PO BID Qty: 60 0RF Continued buprenorphine HCl 8 mg tablet, sublingual 8 mg SUBLINGUAL TID ondansetron HCl 8 mg tablet 8 mg PO BID PRN (Reason: Nausea) mirtazapine 30 mg tablet 30 mg PO HS epinephrine 0.3 mg/0.3 mL auto-injector 0.3 mg IM UD PRN (Reason: Allergic Reaction) cyanocobalamin (vitamin B-12) 1,000 mcg/mL Solution 1,000 mcg IM .EVERY 4 WEEKS clotrimazole 10 mg marquise 10 mg PO .[id number] Rx Instructions: Take for 14 days, kevindered 08/06/2022 potassium chloride 10 mEq tablet extended release 20 meq PO QAM lactulose 10 gram/15 mL Solution 45 ml PO BID Rx Instructions: Takes according to how well her bowels are moving. Usually only takes once a day. zinc oxide 40 % Ointment 1 applic TOPICAL DIRECTED PRN (Reason: coccyx) Maalox/Benadryl/Lidocaine 15 ml PO QID PRN (Reason: sore mouth) fluticasone propion-salmeterol [Advair Diskus] 250-50 mcg/dose Blister With Device 1 inh INHALATION BID levothyroxine [Synthroid] 88 mcg tablet 88 mcg PO QAM albuterol sulfate [ProAir HFA] 90 mcg/actuation Hfa Aerosol Inhaler 2 puff INHALATION Q4 PRN (Reason: Shortness Of Breath Or Wheezing) ic-[id number]-Ok-Xa-qccwrji-lutein 0.4-162-18 mg Tablet 1 tab PO DAILY calcium citrate 250 mg calcium Tablet 500 mg PO BID Spiriva Respimat 2.5 mcg/actuation Mist 2 puff INHALATION DAILY Probiotic 3 billion cell Capsule 0 mmu cells PO DAILY Rx Instructions: administer with a meal Naloxone Hcl 1 dose PO DIRECTED famotidine 40 mg tablet 40 mg PO AMHS sennosides [senna] 8.6 mg Tablet 8.6 mg PO BID Eliquis 5 mg tablet 5 mg PO BID spironolactone 100 mg tablet 100 mg PO DAILY Qty: 30 0RF methocarbamol 750 mg tablet 750 mg PO TID PRN (Reason: MUSCLE SPASMS) cholecalciferol (vitamin D3) [Vitamin D3] 50 mcg (2,000 unit) Capsule 50 mcg PO QAM Changed furosemide 40 mg tablet 20 mg PO QPM Qty: 30 0RF furosemide [Lasix] 40 mg Tablet 40 mg PO QAM Qty: 30 0RF Discharge Orders: Discharge Order (Routine); Ordered 08/14/22 Ordered By: Hipolito Ruth Admission Data Admit Date/Time: 08/12/22 15:08 Attending Provider: Hipolito Rtuh Admit Provider: Gage Wall Primary Care Provider: Ishaan Pepe Other Providers: Betty Mello ; Gage Wall
== END 2022-08-14 14:02 | disposition home or self-care (01) | DRG 683 ==
LOC: ED 11:19 → 2W 15:08 → SUATTDRO 15:08 → 2W 16:50

== ENCOUNTER 2022-10-27 13:18 | Inpatient (IN) ==
[2022-10-27 15:03] LABS: Basophils # (auto) 0.05 K/uL (0-0.2); Basophils % (auto) 0.8 %; Eosinophils # (auto) 0.12 K/uL (0-0.50); Hematocrit (blood only) 35.2 % (37.0-47.0); Hemoglobin 10.9 g/dl (12.0-16.0); Immature Granulocytes # (auto) 0.02 K/uL (0.01-0.20); Immature Granulocytes % (auto) 0.3 %; Lymphocytes # (auto) 2.01 K/uL (1.2-3.4); Lymphocytes % (auto) 32.7 %; Mean Corpuscular Hemoglobin 27.5 pg (25.0-34.0); Mean Corpuscular Volume 88.9 fL (80.0-100.0); Mean Platelet Volume 10.9 fL (9.4-12.4); Monocytes # (auto) 0.57 K/uL (0.11-0.59); Monocytes % (auto) 9.3 %; Neutrophils # (auto) 3.38 K/uL (1.40-6.50); Neutrophils % (auto) 54.9 %; Platelet Count 239 K/uL (130-400); RDW Coefficient of Variation 16.2 % (11.5-14.5); RDW Standard Deviation 53.1 fL (36.4-46.3); Red Blood Count 3.96 M/uL (4.20-5.40); White Blood Count 6.15 K/ul (4.8-10.8)
[2022-10-27 15:19] LABS: Albumin Level 3.2 gm/dl (3.4-5.0); BUN Creatinine Ratio 32.7 (10-20); Bilirubin,Total 0.3 mg/dl (0.2-1.0); Creatinine Clr Calc Pharmacy 51.2 ml/min; Est GFR (African American) 70.5 ml/min; Est GFR (Non-African American) 60.9 ml/min; Globulin 3.3 gm/dl (2.5-4.0); Magnesium 2.3 mg/dl (1.7-2.4); Potassium 3.8 mmol/L (3.5-5.1); Total Protein 6.5 gm/dl (6.0-8.3)
[2022-10-27 15:31] LABS: INR 0.9 (0.9-1.1); Partial Thromboplastin Ratio 0.9; Partial Thromboplastin Time 25.9 Seconds (21.0-31.0); Prothrombin Time 10.4 Seconds (9.0-12.0)
[2022-10-27 16:26] LABS: Appearance Urine Cloudy (Clear); Bacteria Urine Automated 4+ (Negative); Bilirubin Urine Negative (Negative); Blood Urine Negative (Negative); Color Urine Yellow; Epithelial Cell Urine Auto 0-5 /lpf (0-5); Glucose Urine UA Negative (Negative); Ketones Urine Negative (Negative); Leukocyte Esterase Urine 2+ (Negative); Nitrite Urine Positive (Negative); Protein Urine Negative (Negative); RBC Urine Automated 0-4 /hpf (0-4); Specific Gravity Urine 1.016 (1.000-1.030); Urobilinogen Urine Negative (Negative); WBC Urine Automated >30 /hpf (0-5)
--- NOTE | 2022-10-27 16:28 | XRay Report ---
SINGLE VIEW CHEST CLINICAL HISTORY: Sepsis. FINDINGS: An AP, portable, upright chest radiograph is compared to chest x-ray and chest CT dated 07/28. The heart is top normal for projection noting atherosclerotic calcification of the thoracic a jordan. Chronic residual thickening similar to previous. No airspace consolidation or large pleural eff usion is identified. No pneumothorax is seen. The skeletal structures are osteopenic. The bony thorax is grossly intact. Intrathecal leads project over the thoracic spine. Fusion hardware is seen in the lower cervical spine. Calcific tendinopathy is noted in the shoulders. IMPRESSION: No acute cardiopulmonary abnormality. ACT 112: Negative or not required by law. Electronically signed by: Alvino Hadley M.D. 10/27/2022 4:27 PM
--- NOTE | 2022-10-27 16:29 | Emergency Department Note ---
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 ED Provider Note NAME: SOCRATES JUDD AGE: 56 SEX: F ARRIVES VIA: Walk-In INFORMANT: Patient ED PROVIDER(S): Jona Langley MD CHIEF COMPLAINT: Drug-resistant UTI, referred PLAN: Disposition: Admit MEDICAL DECISION MAKING: The patient is a pleasant 56-year-old woman with a past medical history of cirrhosis secondary to Rodrigues, history of COPD, hypertension, hyperlipidemia, diabetes, fibromyalgia, history of gastric bypass, history of DVT, who presents to the emergency department via walk-in, accompanied by family for evaluation of urinary symptoms in the setting of being diagnosed with a urinary tract infection with urine culture subsequently growing multidrug-resistant Enterobacter cloacae sensitive to only gentamicin and meropenem per [facility] records. She reports symptoms for the past week. Patient denies any fevers, abdominal pain, back pain, chest pain, shortness of breath. She reports continued burning with urination. She does agree with plan for admission for further management. Of note, the patient did arrive to emergency department during time of high volume, acuity and prolonged emergency department waiting times. Critical pathways initiated from triage. On my evaluation patient is no acute distress, afebrile with heart in the 90s and vital signs otherwise stable. She appears clinically dry. Abdomen is benign. EKG without overt acute ischemia. CXR negative for acute cardiopulmonary process. WBC and platelets within normal limits. H/H 10.9/35.2 improved from prior. Chemistry without metabolic acidosis. Electrolytes and FTs without significant abnormality. UA is again suspicious for infection with 4+ bacteria and WBCs and positive nitrites without epithelial cells present. Blood cultures were drawn and treatment was initiated with IV ertapenem following discussion with ED pharmacy which should similarly be effective given sensitivities showed sensitivity to meropenem. Case was discussed with [facility], with [facility] hospitalist who will evaluate the patient for admission. Triage Nursing notes reviewed and agree them. Prior/outside medical records reviewed Vital Signs: reviewed Differential diagnosis: Renal colic, UTI, appendicitis, diverticulitis, mesenteric ischemia, aortic pathology, infections, inflammatory bowel disease, PUD, biliary pathology, as well as other pathologies. ER treatment provided: See below. Diagnostics interpreted by me: ECG: Normal sinus rhythm, 75 bpm, no ectopy, no overt ST elevation or depression, QTc 413, QRS 70 Cardiac Monitoring: An order for continuous cardiac monitoring was placed and demonstrated normal sinus rhythm, 75 bpm, no ectopy Laboratory studies: See below Imaging studies: See below Consultation(s): [facility] Lopez, with Dr. Sen [facility] hospitalist HPI: The patient is a pleasant 56-year-old woman with a past medical history of cirrhosis secondary to Rodrigues, history of COPD, hypertension, hyperlipidemia, diabetes, fibromyalgia, history of gastric bypass, history of DVT, who presents to the emergency department via walk-in, accompanied by family for evaluation of urinary symptoms in the setting of being diagnosed with a urinary tract infection with urine culture subsequently growing multidrug-resistant Enterobacter cloacae sensitive to only gentamicin and meropenem per [facility] records. She reports symptoms for the past week. Patient denies any fevers, abdominal pain, back pain, chest pain, shortness of breath. She reports continued burning with urination. She does agree with plan for admission for further management. ROS: See above HPI for pertinent positives & negatives. A total of 10 systems reviewed and were otherwise negative. VITALS:See Below PHYSICAL EXAMINATION: GENERAL: Awake, alert, in no distress HENT: Normocephalic, atraumatic. Oropharynx with dry mucous membranes and otherwise unremarkable. EYES: Normal conjunctiva. Sclera non-icteric. NECK: Supple. No nuchal rigidity. FROM. No JVD. RESPIRATORY: Clear to auscultation. CARDIAC: Regular rate, normal rhythm. Extremities warm and well perfused. Pulses equal. ABDOMEN: Soft, non-distended. No tenderness to palpation. No rebound or guarding. No masses. RECTAL: Deferred. MUSCULOSKELETAL: Chest examination reveals no tenderness. The back is symmetrical on inspection without obvious abnormality. There is no CVA tenderness to palpation. No joint edema. LOWER EXTREMITIES: Calves are equal size bilaterally and non-tender. No edema. No discoloration. NEURO: Normal sensorium. No sensory or motor deficits noted. SKIN: No rash or jaundice noted. Jona Langley MD Past Med/Surg History Medical History Anxiety Bronchitis hx Cellulitis Chronic back pain Cirrhosis COPD (chronic obstructive pulmonary disease) Cor pulmonale w/ PE/EVT 04/2022 Degenerative disc disease Depression DVT (deep venous thrombosis) 04/2022 femoral vein, right lower extremity Dysphagia Falls frequently d/t drop foot Fibromyalgia Foot drop RIGHT Fractured pelvis 04/2022 from a fall, currently using a walker GERD (gastroesophageal reflux disease) History of COVID-19 06/2020- does not remember what her symptoms were- NO HOSPITALIZATION 05/2022 - hospitalized [facility] History of esophageal stricture Hx pulmonary embolism 04/2022- hospitalized [facility], currently taking eliquis Hyperlipidemia Hypothyroidism 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 CLICKS BUT NEVER LOCKED. Transient ischemic attack (TIA) treated in patient at [facility] 05/05/19-05/06/19. placed on Plavix & ASA Urinary tract infection due to Enterococcus UTI (urinary tract infection) Weight loss, unintentional Surgical History H/O cervical discectomy with a cage (done at [facility]) Full ROM. History of breast biopsy MULITPLE ON BILATERAL BREASTS History of cholecystectomy History of esophageal dilatation History of esophagogastroduodenoscopy (EGD) History of laminectomy LUMBAR AREA X2 Hx of colonoscopy Hx of gastric bypass Vickey en Y Hx of lumpectomy (-) RIGHT BREAST S/P insertion of spinal cord stimulator [facility]. Turns it off for surgery - has remote. S/P ANSHU-BSO Status post surgery right leg nerve decompression for foot drop Family History Family/Other Family hx of colon cancer Father Family history of diabetes mellitus Grandmother (Maternal) Family history of diabetes mellitus Other No family history of adverse response to anesthesia Social History Smoking Status: Current every day smoker Tobacco Type: Cigarettes Cigarettes Per Day: <1/2 ppd; Second Hand Exposure: No; Do You Dip or Chew Tobacco: Yes; Hx Alcohol Use: No Hx Substance Use: No Preferred Language: Kyrgyz Communication Ability: Effective Senior Strategy Analyst Required: No Beliefs That Will Affect Care: None marital status: Current Living Situation: Spouse and Family Current Living Situation Comment: home with spouse and adopted grandchildren. Feels Safe at Home: Yes Assistive Devices: Scooter/Electric Scooter and Walker Allergies Allergies Allergy/AdvReac Type Severity Reaction Status Date / Time adhesive Allergy Severe Blister Unverified 10/27/22 16:52 Iodinated Contrast Media Allergy Severe ANAPHYLAXIS Verified 10/27/22 16:52 omeprazole Allergy Severe ANAPHYLAXIS Verified 10/27/22 16:52 peanut Allergy Intermediate LIPS SWELL Verified 10/27/22 16:52 FROM PEANUT SHELL DUST povidone-iodine Allergy Intermediate blisters Verified 10/27/22 16:52 [From Betadine] erythromycin base AdvReac Intermediate GI UPSET Verified 10/27/22 16:52 Home Meds Home Medications Medication Instructions Recorded Confirmed buprenorphine HCl 8 mg sublingual 8 mg sublingual TID 10/10/21 10/27/22 tablet mirtazapine 30 mg tablet 30 mg PO HS 10/10/21 10/27/22 ondansetron HCl 8 mg tablet 8 mg PO BID PRN Nausea 10/10/21 10/27/22 cyanocobalamin (vitamin B-12) 1,000 mcg IM .EVERY 4 WEEKS 11/09/21 10/27/22 1,000 mcg/mL injection solution epinephrine 0.3 mg/0.3 mL 0.3 mg IM UD PRN Allergic Reaction 11/09/21 10/27/22 injection, auto-injector cholecalciferol (vitamin D3) 50 50 mcg PO QAM 06/09/22 10/27/22 mcg (2,000 unit) capsule (Vitamin D3) methocarbamol 750 mg tablet 750 mg PO TID PRN MUSCLE SPASMS 06/09/22 10/27/22 Maalox/Benadryl/Lidocaine 15 ml PO QID PRN sore mouth 08/12/22 10/27/22 albuterol sulfate 90 mcg/actuation 2 puff inhalation Q4 PRN Shortness 08/12/22 10/27/22 aerosol inhaler (ProAir HFA) Of Breath Or Wheezing calcium citrate 500 mg PO BID 08/12/22 10/27/22 famotidine 40 mg tablet 40 mg PO AMHS 08/12/22 10/27/22 fluticasone 250 mcg-salmeterol 50 1 inh inhalation BID 08/12/22 10/27/22 mcg/dose blistr powdr for inhalation (Advair Diskus) lactobacillus combination no.4 3 3 mmu cells PO DAILY 08/12/22 10/27/22 billion cell capsule (Probiotic) lactulose 10 gram/15 mL oral 45 ml PO TID 08/12/22 10/27/22 solution potassium chloride 10 mEq 20 meq PO BID 08/12/22 10/27/22 tablet,extended release sennosides 8.6 mg tablet (senna) 8.6 mg PO BID 08/12/22 10/27/22 tiotropium bromide 2.5 2 puff inhalation DAILY 08/12/22 10/27/22 mcg/actuation mist for inhalation (Spiriva Respimat) apixaban 5 mg tablet (Eliquis) 5 mg PO BID 08/14/22 10/27/22 furosemide 20 mg tablet (Lasix) 20 mg PO PM 10/27/22 10/27/22 levothyroxine 100 mcg tablet 100 mcg PO QAM 10/27/22 10/27/22 (Synthroid) Previous Rx's Medication Instructions Recorded furosemide 40 mg tablet (Lasix) 40 mg PO QAM #30 tabs 08/14/22 pantoprazole 40 mg tablet,delayed 40 mg PO BID #60 tabs 08/14/22 release spironolactone 100 mg tablet 100 mg PO DAILY #30 tabs 08/14/22 Results & Data (ED) Vital Signs Vital Signs - 24 hr 10/27/22 13:24 10/27/22 15:59 10/27/22 16:00 Temperature 37.3 C Temperature Source Temporal Artery Scan Pulse Rate 98 H Pulse Rate [Apical] 75 Respiratory Rate 18 19 Respiratory Effort / Characteristics Non-Labored Spontaneous Respiratory Depth Normal Blood Pressure 115/71 Blood Pressure [Left Arm] 116/77 Blood Pressure Mean 85 Blood Pressure Mean [Left Arm] 90 Pulse Oximetry 95 100 99 Oxygen Delivery Method Room Air Room Air Room Air Sepsis Recent Fever Within 48 Hours No Sepsis New/Unexplained Change in Mental Status No Sepsis Action Taken by Nursing No Action Required 10/27/22 16:03 Temperature Temperature Source Pulse Rate 71 Pulse Rate [Apical] Respiratory Rate Respiratory Effort / Characteristics Respiratory Depth Blood Pressure Blood Pressure [Left Arm] Blood Pressure Mean Blood Pressure Mean [Left Arm] Pulse Oximetry Oxygen Delivery Method Sepsis Recent Fever Within 48 Hours Sepsis New/Unexplained Change in Mental Status Sepsis Action Taken by Nursing Laboratory Data Attestation: I reviewed the patient's lab results. 10/27/22 14:14 10/27/22 14:14 Lab Results 10/27/22 10/27/22 10/27/22 Range/Units 14:14 14:14 14:14 WBC 6.15 (4.8-10.8) K/ul RBC 3.96 L (4.20-5.40) M/uL Hgb 10.9 L (12.0-16.0) g/dl Hct 35.2 L (37.0-47.0) % MCV 88.9 (80.0-100.0) fL MCH 27.5 (25.0-34.0) pg MCHC 31.0 L (32.0-36.0) g/dL RDW Std Deviation 53.1 H (36.4-46.3) fL RDW Coeff of Lionel 16.2 H (11.5-14.5) % Plt Count 239 (130-400) K/uL MPV 10.9 (9.4-12.4) fL Immature Gran % (Auto) 0.3 % Neut % (Auto) 54.9 % Lymph % (Auto) 32.7 % [place] % (Auto) 9.3 % Eos % (Auto) 2.0 % Baso % (Auto) 0.8 % Neut # (Auto) 3.38 (1.40-6.50) K/uL Lymph # (Auto) 2.01 (1.2-3.4) K/uL [place] # (Auto) 0.57 (0.11-0.59) K/uL Eos # (Auto) 0.12 (0-0.50) K/uL Baso # (Auto) 0.05 (0-0.2) K/uL Immature Gran # (Auto) 0.02 (0.01-0.20) K/uL PT 10.4 (9.0-12.0) Seconds INR 0.9 (0.9-1.1) APTT 25.9 (21.0-31.0) Seconds PTT Ratio 0.9 Sodium 137 (136-145) mmol/L Potassium 3.8 (3.5-5.1) mmol/L Chloride 102 (98-107) mmol/L Carbon Dioxide 31 (21-32) mmol/L Anion Gap 4 (3-11) BUN 34 H (6-23) mg/dl Creatinine 1.04 (0.6-1.2) mg/dl Est Cr Clr Drug Dosing 51.2 ml/min Est GFR ( Amer) 70.5 ml/min Est GFR (Non-Af Amer) 60.9 ml/min BUN/Creatinine Ratio 32.7 H (10-20) Glucose 82 (70-99(Fasting)) mg/dl Calcium 9.0 (8.6-10.3) mg/dl Magnesium 2.3 (1.7-2.4) mg/dl Total Bilirubin 0.3 (0.2-1.0) mg/dl AST 30 (13-39) U/L ALT 18 (7-52) U/L Alkaline Phosphatase 143 H (34-104) U/L Total Protein 6.5 (6.0-8.3) gm/dl Albumin 3.2 L (3.4-5.0) gm/dl Globulin 3.3 (2.5-4.0) gm/dl Albumin/Globulin Ratio 1.0 (0.9-2) Urine Color Urine Appearance (Clear) Urine pH (4.5-7.5) Ur Specific [place] (1.000-1.030) Urine Protein (Negative) Urine Glucose (UA) (Negative) Urine Ketones (Negative) Urine Blood (Negative) Urine Nitrite (Negative) Urine Bilirubin (Negative) Urine Urobilinogen (Negative) Ur Leukocyte Esterase (Negative) Urine WBC (Auto) (0-5) /hpf Urine RBC (Auto) (0-4) /hpf U Hyaline Cast (Auto) (0-5) /lpf U Epithel Cells (Auto) (0-5) /lpf Urine Bacteria (Auto) (Negative) 10/27/22 Range/Units 15:50 WBC (4.8-10.8) K/ul RBC (4.20-5.40) M/uL Hgb (12.0-16.0) g/dl Hct (37.0-47.0) % MCV (80.0-100.0) fL MCH (25.0-34.0) pg MCHC (32.0-36.0) g/dL RDW Std Deviation (36.4-46.3) fL RDW Coeff of Lionel (11.5-14.5) % Plt Count (130-400) K/uL MPV (9.4-12.4) fL Immature Gran % (Auto) % Neut % (Auto) % Lymph % (Auto) % [place] % (Auto) % Eos % (Auto) % Baso % (Auto) % Neut # (Auto) (1.40-6.50) K/uL Lymph # (Auto) (1.2-3.4) K/uL [place] # (Auto) (0.11-0.59) K/uL Eos # (Auto) (0-0.50) K/uL Baso # (Auto) (0-0.2) K/uL Immature Gran # (Auto) (0.01-0.20) K/uL PT (9.0-12.0) Seconds INR (0.9-1.1) APTT (21.0-31.0) Seconds PTT Ratio Sodium (136-145) mmol/L Potassium (3.5-5.1) mmol/L Chloride (98-107) mmol/L Carbon Dioxide (21-32) mmol/L Anion Gap (3-11) BUN (6-23) mg/dl Creatinine (0.6-1.2) mg/dl Est Cr Clr Drug Dosing ml/min Est GFR ( Amer) ml/min Est GFR (Non-Af Amer) ml/min BUN/Creatinine Ratio (10-20) Glucose (70-99(Fasting)) mg/dl Calcium (8.6-10.3) mg/dl Magnesium (1.7-2.4) mg/dl Total Bilirubin (0.2-1.0) mg/dl AST (13-39) U/L ALT (7-52) U/L Alkaline Phosphatase (34-104) U/L Total Protein (6.0-8.3) gm/dl Albumin (3.4-5.0) gm/dl Globulin (2.5-4.0) gm/dl Albumin/Globulin Ratio (0.9-2) Urine Color Yellow Urine Appearance Cloudy A (Clear) Urine pH 7.0 (4.5-7.5) Ur Specific [place] 1.016 (1.000-1.030) Urine Protein Negative (Negative) Urine Glucose (UA) Negative (Negative) Urine Ketones Negative (Negative) Urine Blood Negative (Negative) Urine Nitrite Positive A (Negative) Urine Bilirubin Negative (Negative) Urine Urobilinogen Negative (Negative) Ur Leukocyte Esterase 2+ H (Negative) Urine WBC (Auto) >30 H (0-5) /hpf Urine RBC (Auto) 0-4 (0-4) /hpf U Hyaline Cast (Auto) 1-5 (0-5) /lpf U Epithel Cells (Auto) 0-5 (0-5) /lpf Urine Bacteria (Auto) 4+ H (Negative) Administered Medications Apixaban (Apixaban 5 Mg Tablet) 5 mg PO BID MEGHNA Stop: 11/26/22 20:59 Last Admin: 10/27/22 22:24 Dose: 5 mg Documented By: GCB Buprenorphine HCl (Buprenorphine Hcl 8 Mg Subl) 8 mg SL TID MEGHNA Stop: 11/26/22 20:59 Last Admin: 10/27/22 22:25 Dose: 8 mg Documented By: GCB Calcium Citrate (Calcium Citrate 950 Mg Tab) 950 mg PO BID MEGHNA Stop: 11/26/22 20:59 Last Admin: 10/27/22 22:23 Dose: Not Given Documented By: GCB Famotidine (Famotidine 40 Mg Tablet) 40 mg PO BID MEGHNA Stop: 11/26/22 20:59 Last Admin: 10/27/22 22:25 Dose: 40 mg Documented By: GCCristal Furosemide (Furosemide 20 Mg Tab) 20 mg PO PM MEGHNA Stop: 11/26/22 20:59 Last Admin: 10/27/22 22:25 Dose: 20 mg Documented By: GCB Lactulose (Lactulose Syrup 30 Gm/45 Ml Udp) 30 gm PO TID MEGHNA Stop: 11/26/22 20:59 Last Admin: 10/27/22 22:23 Dose: Not Given Documented By: GCB Mirtazapine (Mirtazapine Tab 15 Mg Tab) 30 mg PO HS MEGHNA Stop: 11/26/22 20:59 Last Admin: 10/27/22 22:29 Dose: 30 mg Documented By: GCB Pantoprazole Sodium (Pantoprazole 40 Mg Tab) 40 mg PO BID MEGHNA Stop: 11/26/22 20:59 Last Admin: 10/27/22 22:29 Dose: 40 mg Documented By: GCB Potassium Chloride (Potassium Chloride Crtab 20 Meq Tabcr) 20 meq PO BID MEGHNA Stop: 11/26/22 20:59 Last Admin: 10/27/22 22:31 Dose: Not Given Documented By: GCB Sennosides (Senna 8.6 Mg Tab) 8.6 mg PO BID MEGHNA Stop: 11/26/22 20:59 Last Admin: 10/27/22 22:30 Dose: 8.6 mg Documented By: GCB Discontinued Medications Ertapenem (Invanz) 10 mls @ 2 mls/min IV NOW STA Stop: 10/27/22 17:04 Last Admin: 10/27/22 17:16 Dose: 2 mls/min Documented By: Imaging Data Radiologist's Impression: Chest X-Ray 10/27/22 13:27 SINGLE VIEW CHEST CLINICAL HISTORY: Sepsis. FINDINGS: An AP, portable, upright chest radiograph is compared to chest x-ray and chest CT dated 08/12/2022. The heart is top normal for projection noting atherosclerotic calcification of the thoracic aorta. Chronic residual thickening similar to previous. No airspace consolidation or large pleural effusion is identified. No pneumothorax is seen. The skeletal structures are osteopenic. The bony thorax is grossly intact. Intrathecal leads project over the thoracic spine. Fusion hardware is seen in the lower cervical spine. Calcific tendinopathy is noted in the shoulders. IMPRESSION: No acute cardiopulmonary abnormality. ACT 112: Negative or not required by law. Electronically signed by: Alvino Hadley M.D. 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
[2022-10-27] MEDS ORDERED: ERTAPENEM SODIUM 10 ML IV STA (17:00)
[2022-10-27] MEDS ORDERED: MAGNESIUM HYDROXIDE SUSP 30 ML UDC PO PRN (17:18)
[2022-10-27] MEDS ORDERED: ACETAMINOPHEN 325 MG TAB PO PRN (17:18)
[2022-10-27] MEDS ORDERED: POLYETHYLENE (MIRALAX) 17 GM PACK PO PRN (17:18)
[2022-10-27] MEDS ORDERED: ONDANSETRON INJ 2 MG/ML 2 ML VIAL IV PRN (17:18)
[2022-10-27] MEDS ORDERED: ALUMINUM/MAGNESIUM SUSP 30 ML UDC PO PRN (17:18)
--- NOTE | 2022-10-27 17:41 | History & Physical Report ---
Date of Service October 27, 2022 Assessment & Plan (1) UTI (urinary tract infection): (2) Multiple drug resistant organism (MDRO) culture positive: (3) COPD (chronic obstructive pulmonary disease): (4) Personal history of DVT (deep vein thrombosis): (5) Liver cirrhosis secondary to SOTOMAYOR: (6) Cellulitis: (7) Mood disorder: (8) Hypothyroidism: (9) Chronic back pain: Plan 56 year old F presents with complicated MDR Enterebacter Cloacae UTI. No leukocytosis, does not appear septic. Completed course of Bactrim on 10/18. Culture Sensitivity outlined below from urine culture on 10/21. Only susceptible to Meropenem and Gentamycin; started on Ertapenem in ED. ID consult placed. May need to consider PICC line. Other PMH: COPD, H/O DVT/PE (04/21 - on Eliquis), Liver Cirrhosis 2/2 SOTOMAYOR, current nearly completed treatment of left leg cellulitis, (Keflex), Chronic back pain (on Buprenorphine). UTI: MDR Enterebacter Cloacae: (+) dysuria; does not appear toxic; WBC 6.15 OPT tx for UTI: Bactrim started on 10/14 Urine Culture on 10/21: Enterebacter Cloacae Per review of the culture and sensitivity: Resistant to the following medications: Cefepime, cefoxitin, ceftriaxone, ciprofloxacin, Levaquin, Bactrim, Zosyn, and Macrobid Per review of the culture and sensitivity: Sensitive to the following medications: Meropenem and gentamicin Started on Ertapenem in the ED; per up to date for complicated UTI: 1 G daily x 5-14 days. 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 S/P RYGB. Normal jejunum; next EGD planned for 02/19 Barium swallow May 2022: Narrowed caliber of the cervical and thoracic portions of esophagus. No mass or obstructive lesion identified. Esophageal dysmotility. Echocardiogram: Apr 2019 - normal. 09/23/22: MELD score: 17 Takes Lactulose TID; based on number of BMs Takes Lasix and Aldactone to manage ascites; continue left leg cellulitis: Follows with outpatient wound care Completed course of Keflex Nearly resolved and no signs of worsening Chronic back pain: On Methadone for narcotic addiction prescribed by [facility]. Has a neurostimulator. Takes Buprenorphine;continue Mood disorder Takes Remeron; continue Fibromyalgia, chronic pain syndrome: Continue buprenorphine TID, PRN methocarbamol Hypothyroidism: Takes levothyroxine; continue Disposition: PCP: Dr. Pepe CODE STATUS: Full code VTE prophylaxis: On Eliquis I spent a total of 87 minutes coordinating, documenting, and providing care for this patient excluding time spent in the performance of separately billed services. All of the aforementioned completed while collaborating with the assigned attending physician for a full treatment plan. Please see their addendum for further details. History of Present Illness Chief Complaint: UTI Primary Care Provider: Ishaan Pepe MD Ms. Hester is a 56 year old female that presented to the ED as recommended by her PCP for IV antibiotics for a multi-drug resistant UTI not susceptible to oral medications. She was recently treated for UTI and continues to experience dysuria. Denies visual hematuria or burning. As an outpatient urine culture performed 10/21/2022 positive for enterobacter cloacae complex; with multi drug resistance; including cefepime, cefoxitin, ceftriaxone, ciprofloxacin, levofloxacin, Macrobid, Zosyn, Bactrim. Susceptible to gentamicin and meropenem per C/S. Patient started on Invanz in the ED after discussion with Pharmacy; confirmed first dose received. Additional PMH includes: Fibromyalgia, hypothyroidism, COPD, HLD, cirrhosis with ascites and hepatic encephalopathy, history of DVT/PE, obesity status post gastric bypass ([address] Jim), history of TIA, and GERD. Recent inpatient hospitalization from 08/12 to 08/14 status post fall. No fractures or ICH, SDH and it was suspected to be related to diuretics and dehydration. Small amount of ascites on recent imaging noted; no paracentesis performed as no appreciable ascites noted on survey ultrasound. Patient denies headache, fevers, chills, abdominal pain or tenderness, visual or auditory changes, nausea, vomiting, diarrhea, hematochezia or hematuria, recent fall or trauma outside of recent admission. Pt has a history of DVT/PE in March 2022; on Eliquis. Has been followed by wound for left leg cellulitis that is improving. Patient will be admitted for further evaluation and management. Please see A/P for further details. Allergies Allergy/AdvReac Type Severity Reaction Status Date / Time adhesive Allergy Severe Blister Unverified 10/27/22 16:52 Iodinated Contrast Media Allergy Severe ANAPHYLAXIS Verified 10/27/22 16:52 omeprazole Allergy Severe ANAPHYLAXIS Verified 10/27/22 16:52 peanut Allergy Intermediate LIPS SWELL Verified 10/27/22 16:52 FROM PEANUT SHELL DUST povidone-iodine Allergy Intermediate blisters Verified 10/27/22 16:52 [From Betadine] erythromycin base AdvReac Intermediate GI UPSET Verified 10/27/22 16:52 Home Medications Medication Instructions Recorded Confirmed Type buprenorphine HCl 8 mg sublingual 8 mg sublingual TID 10/10/21 10/27/22 History tablet mirtazapine 30 mg tablet 30 mg PO HS 10/10/21 10/27/22 History ondansetron HCl 8 mg tablet 8 mg PO BID PRN Nausea 10/10/21 10/27/22 History cyanocobalamin (vitamin B-12) 1,000 mcg IM .EVERY 4 WEEKS 11/09/21 10/27/22 History 1,000 mcg/mL injection solution epinephrine 0.3 mg/0.3 mL 0.3 mg IM UD PRN Allergic Reaction 11/09/21 10/27/22 History injection, auto-injector cholecalciferol (vitamin D3) 50 50 mcg PO QAM 06/09/22 10/27/22 History mcg (2,000 unit) capsule (Vitamin D3) methocarbamol 750 mg tablet 750 mg PO TID PRN MUSCLE SPASMS 06/09/22 10/27/22 History Maalox/Benadryl/Lidocaine 15 ml PO QID PRN sore mouth 08/12/22 10/27/22 History albuterol sulfate 90 mcg/actuation 2 puff inhalation Q4 PRN Shortness 08/12/22 10/27/22 History aerosol inhaler (ProAir HFA) Of Breath Or Wheezing calcium citrate 500 mg PO BID 08/12/22 10/27/22 History famotidine 40 mg tablet 40 mg PO AMHS 08/12/22 10/27/22 History fluticasone 250 mcg-salmeterol 50 1 inh inhalation BID 08/12/22 10/27/22 History mcg/dose blistr powdr for inhalation (Advair Diskus) lactobacillus combination no.4 3 3 mmu cells PO DAILY 08/12/22 10/27/22 History billion cell capsule (Probiotic) lactulose 10 gram/15 mL oral 45 ml PO TID 08/12/22 10/27/22 History solution potassium chloride 10 mEq 20 meq PO BID 08/12/22 10/27/22 History tablet,extended release sennosides 8.6 mg tablet (senna) 8.6 mg PO BID 08/12/22 10/27/22 History tiotropium bromide 2.5 2 puff inhalation DAILY 08/12/22 10/27/22 History mcg/actuation mist for inhalation (Spiriva Respimat) apixaban 5 mg tablet (Eliquis) 5 mg PO BID 08/14/22 10/27/22 History furosemide 40 mg tablet (Lasix) 40 mg PO QAM #30 tabs 08/14/22 10/27/22 Rx pantoprazole 40 mg tablet,delayed 40 mg PO BID #60 tabs 08/14/22 10/27/22 Rx release spironolactone 100 mg tablet 100 mg PO DAILY #30 tabs 08/14/22 10/27/22 Rx furosemide 20 mg tablet (Lasix) 20 mg PO PM 10/27/22 10/27/22 History levothyroxine 100 mcg tablet 100 mcg PO QAM 10/27/22 10/27/22 History (Synthroid) Past Med/Surg History Medical History (Updated 10/27/22 @ 19:36 by MARK Lucas) Anxiety Bronchitis hx Cellulitis Chronic back pain Cirrhosis COPD (chronic obstructive pulmonary disease) Cor pulmonale w/ PE/EVT 04/2022 Degenerative disc disease Depression DVT (deep venous thrombosis) 04/2022 femoral vein, right lower extremity Dysphagia Falls frequently d/t drop foot Fibromyalgia Foot drop RIGHT Fractured pelvis 04/2022 from a fall, currently using a walker GERD (gastroesophageal reflux disease) History of COVID-19 06/2020- does not remember what her symptoms were- NO HOSPITALIZATION 05/2022 - hospitalized [facility] History of esophageal stricture Hx pulmonary embolism 04/2022- hospitalized [facility], currently taking eliquis Hyperlipidemia Hypothyroidism Liver cirrhosis secondary to SOTOMAYOR Malnourished Migraine HX Multiple drug resistant organism (MDRO) culture positive Osteoarthritis Peptic ulcer disease HX Peripheral neuropathy BILATERAL FEET Personal history of DVT (deep vein thrombosis) Rotator cuff injury from fall 04/2022 Sinus infection hx Temporomandibular joint disorder MILD. CLICKS BUT NEVER LOCKED. Transient ischemic attack (TIA) treated in patient at [facility] 05/05/19-05/06/19. placed on Plavix & ASA Urinary tract infection due to Enterococcus UTI (urinary tract infection) Weight loss, unintentional Surgical History H/O cervical discectomy with a cage (done at [facility]) Full ROM. History of breast biopsy MULITPLE ON BILATERAL BREASTS History of cholecystectomy History of esophageal dilatation History of esophagogastroduodenoscopy (EGD) History of laminectomy LUMBAR AREA X2 Hx of colonoscopy Hx of gastric bypass Vickey en Y Hx of lumpectomy (-) RIGHT BREAST S/P insertion of spinal cord stimulator [facility]. Turns it off for surgery - has remote. S/P ANSHU-BSO Status post surgery right leg nerve decompression for foot drop Family History Family/Other Family hx of colon cancer Father Family history of diabetes mellitus Grandmother (Maternal) Family history of diabetes mellitus Other No family history of adverse response to anesthesia Social History Smoking Status: Current every day smoker Tobacco Type: Cigarettes Cigarettes Per Day: <1/2 ppd; Second Hand Exposure: No; Do You Dip or Chew Tobacco: Yes; Hx Alcohol Use: No Hx Substance Use: No Preferred Language: Palestinian Communication Ability: Effective Mobile Home Laborer Required: No Beliefs That Will Affect Care: None marital status: Current Living Situation: Spouse and Family Current Living Situation Comment: home with spouse and adopted grandchildren. Feels Safe at Home: Yes Assistive Devices: Scooter/Electric Scooter and Walker Review of Systems Review of Systems: Neuro: (-) Falls, trauma, slurred speech HEENT: (-) MANUEL, dizziness, dysphagia, visual or auditory changes CV: (-) CP, palpitations, swelling Resp: (-) SOB GI: (-) appetite changes, N/V/D, bowel changes : (-) urinary changes Skin: (-) rashes Psych: (-) anxiety, depression Physical Exam Physical Exam: Neuro: AAOx4, PERRLA, no aphagia, memory changes, CNII-XII grossly intact HEENT: head normocephalic, moist mucus membranes CV: S1/S2, (-) M/G/R, (-) edema, cap refill < 3 seconds Resp: Lungs CTA in all garcía. On RA GI: Abdomen S/NT/ND, Ax4 bowel sounds, (-) CVA tenderness Musculoskeletal: 5/5 B/L UE strength, 5/5 B/L LE strength. No gait disturbance Skin: (-) rashes , (-) erythema. Psych: euthymic mood Results & Data Results & Data Vital Signs (Past 12 Hours) Vital Signs Temp Pulse Pulse Resp BP BP Pulse Ox 10/27/22 16:03 71 10/27/22 16:00 99 10/27/22 15:59 75 19 116/77 100 10/27/22 13:24 37.3 C 98 H 18 115/71 95 O2 Del Method 10/27/22 16:03 10/27/22 16:00 Room Air 10/27/22 15:59 Room Air 10/27/22 13:24 Room Air Laboratory Results Short CBC 10/27/22 Range/Units 14:14 WBC 6.15 (4.8-10.8) K/ul Hgb 10.9 L (12.0-16.0) g/dl Hct 35.2 L (37.0-47.0) % Plt Count 239 (130-400) K/uL BMP 10/27/22 14:14 Sodium 137 Potassium 3.8 Chloride 102 Carbon Dioxide 31 BUN 34 H Creatinine 1.04 Glucose 82 Calcium 9.0 Liver Function 10/27/22 Range/Units 14:14 Total Bilirubin 0.3 (0.2-1.0) mg/dl AST 30 (13-39) U/L ALT 18 (7-52) U/L Alkaline Phosphatase 143 H (34-104) U/L Albumin 3.2 L (3.4-5.0) gm/dl Urine 10/27/22 Range/Units 15:50 Urine Color Yellow Urine Appearance Cloudy A (Clear) Urine pH 7.0 (4.5-7.5) Ur Specific [place] 1.016 (1.000-1.030) Urine Protein Negative (Negative) Urine Glucose (UA) Negative (Negative) Diagnostic Findings Chest X-Ray 10/27/22 13:27 SINGLE VIEW CHEST CLINICAL HISTORY: Sepsis. FINDINGS: An AP, portable, upright chest radiograph is compared to chest x-ray and chest CT dated 08/12/2022. The heart is top normal for projection noting atherosclerotic calcification of the thoracic aorta. Chronic residual thickening similar to previous. No airspace consolidation or large pleural effusion is identified. No pneumothorax is seen. The skeletal structures are osteopenic. The bony thorax is grossly intact. Intrathecal leads project over the thoracic spine. Fusion hardware is seen in the lower cervical spine. Calcific tendinopathy is noted in the shoulders. IMPRESSION: No acute cardiopulmonary abnormality. ACT 112: Negative or not required by law. Electronically signed by: Alvino Hadley M.D. 10/27/2022 4:27 PM Code Status & VTE Plan Code Status Full Code in the event of cardiac or respiratory arrest VTE Prophylaxis Plan VTE Prophylaxis will be ordered: Yes Supervising Physician Co-Signing Physician Notes I have seen and examined the patient and have discussed the case with the provider above. I agree with the assessment and plan as stated with the following exceptions. 56 yo F with multiple chronic medical problems and multiple hospital admissions this year, the last which was for Acute kidney injury from 08/12-08/14/22, now presents with a multidrug resistant UTI. History as outlined above. She denies pelvic pain, flank pain, fevers, chills. She reports incomplete voiding, dysuria and frequent urination. On exam she is hemodynamically stable and afebrile. She is WNWD. Abdomen is soft NTND, lungs are CTAB, cardiac exam reveals S1/2 heard without murmurs, regular rate and rhythm. There is no peripheral edema, but the RLE appears to have a developing cellulitis present. The distal RLE is warm to touch compared with the left. There is a closed wound on the LLE that appears well healed. She evidently just completed an outpatient course of Keflex for cellulitis of the LLE. Toenails are unkempt. 1. MDR Enterobacter UTI without sepsis. 2. RLE cellulitis Agree with ID consultation but would suggest 10 day course of IV ertapenem. Blood cultures are pending. She has no known h/o MRSA and there is no purulence or wound that is related to this RLE erythema. This should be adequately covered with the ertapenem. Liver cirrhosis appears compensated. Cont home medications as noted above. DO Mckinley (3) COPD (chronic obstructive pulmonary disease) COPD type: unspecified COPD Qualified Code(s): J44.9 - Chronic obstructive pulmonary disease, unspecified
[2022-10-27] MEDS: CALCIUM CITRATE 950 MG TAB PO SCH (22:23)
[2022-10-27] MEDS: LACTULOSE SYRUP 30 GM/45 ML UDP PO SCH (22:23)
[2022-10-27] MEDS: APIXABAN 5 MG TABLET PO SCH (22:24)
[2022-10-27] MEDS: FAMOTIDINE 40 MG TABLET PO SCH (22:25)
[2022-10-27] MEDS: FUROSEMIDE 20 MG TAB PO SCH (22:25)
[2022-10-27] MEDS: buprenorphine HCL 8 MG SUBL SL SCH (22:25)
[2022-10-27] MEDS: PANTOprazole 40 MG TAB PO SCH (22:29)
[2022-10-27] MEDS: MIRTAZAPINE TAB 15 MG TAB PO SCH (22:29)
[2022-10-27] MEDS: SENNA 8.6 MG TAB PO SCH (22:30)
[2022-10-27] MEDS: POTASSIUM CHLORIDE CRTAB 20 MEQ TABCR PO SCH ×2 (22:30→22:31)
[2022-10-28] MEDS: LEVOTHYROXINE SODIUM 100 MCG TABLET PO SCH (06:11)
[2022-10-28 08:02] LABS: Hematocrit (blood only) 29.2 % (37.0-47.0); Hemoglobin 8.8 g/dl (12.0-16.0); Mean Corpuscular Hemoglobin 26.6 pg (25.0-34.0); Mean Corpuscular Hgb Conc 30.1 g/dL (32.0-36.0); Mean Corpuscular Volume 88.2 fL (80.0-100.0); Mean Platelet Volume 10.9 fL (9.4-12.4); Platelet Count 181 K/uL (130-400); RDW Standard Deviation 51.8 fL (36.4-46.3); Red Blood Count 3.31 M/uL (4.20-5.40); White Blood Count 5.18 K/ul (4.8-10.8)
[2022-10-28 08:14] LABS: Albumin Level 2.4 gm/dl (3.4-5.0); BUN Creatinine Ratio 29.5 (10-20); Bilirubin,Total 0.2 mg/dl (0.2-1.0); Calcium 8.2 mg/dl (8.6-10.3); Creatinine Clr Calc Pharmacy 55.6 ml/min; Est GFR (African American) 78.7 ml/min; Est GFR (Non-African American) 67.9 ml/min; Globulin 2.3 gm/dl (2.5-4.0); Potassium 3.7 mmol/L (3.5-5.1); Total Protein 4.7 gm/dl (6.0-8.3)
[2022-10-28] MEDS: FLUTICASONE/VILANTEROL 200/25MCG 14 PUFFS/INHALER INH SCH (09:13)
[2022-10-28] MEDS: UMECLIDINIUM BROMIDE 62.5MCG/BLISTER 7 PUFFS/INHALER INH SCH (09:14)
[2022-10-28] MEDS: buprenorphine HCL 8 MG SUBL SL SCH ×3 (09:14→20:34)
[2022-10-28] MEDS: FAMOTIDINE 40 MG TABLET PO SCH ×2 (09:15→20:37)
[2022-10-28] MEDS: SPIRONOLACTONE 100 MG TAB PO SCH (09:15)
[2022-10-28] MEDS: APIXABAN 5 MG TABLET PO SCH ×2 (09:15→20:36)
[2022-10-28] MEDS: PANTOprazole 40 MG TAB PO SCH ×2 (09:16→20:37)
[2022-10-28] MEDS: SENNA 8.6 MG TAB PO SCH ×2 (09:16→20:35)
[2022-10-28] MEDS: CHOLECALCIFEROL 1,000 UNITS 25 MCG TAB PO SCH (09:16)
[2022-10-28] MEDS: CALCIUM CITRATE 950 MG TAB PO SCH ×2 (09:17→20:43)
[2022-10-28] MEDS: LACTULOSE SYRUP 30 GM/45 ML UDP PO SCH ×3 (09:17→20:33)
[2022-10-28] MEDS: POTASSIUM CHLORIDE CRTAB 20 MEQ TABCR PO SCH ×2 (09:18→20:43)
[2022-10-28] MEDS: FUROSEMIDE 40 MG TAB PO SCH (10:13)
--- NOTE | 2022-10-28 14:38 | Hospitalist Progress Note ---
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 No leukocytosis, does not appear septic. Completed course of Bactrim on 10/18. Culture Sensitivity outlined below from urine culture on 10/21. Only susceptible to Meropenem and Gentamycin; started on Ertapenem in ED. ID consult placed. May need to consider PICC line. Other PMH: COPD, H/O DVT/PE (04/21 - on Eliquis), Liver Cirrhosis 2/2 SOTOMAYOR, current nearly completed treatment of left leg cellulitis, (Keflex), Chronic back pain (on Buprenorphine). UTI: MDR Enterobacter Cloacae OPT tx for UTI: Bactrim started on 10/14 Urine Culture on 10/21: Enterebacter Cloacae Per review of the culture and sensitivity: Resistant to the following medications: Cefepime, cefoxitin, ceftriaxone, ciprofloxacin, Levaquin, Bactrim, Zosyn, and Macrobid Per review of the culture and sensitivity: Sensitive to the following medications: Meropenem and gentamicin -- Blood culture pending Urine culture growing gram-negative bacilli IV ertapenem transition to meropenem as recommended by ID Appreciate ID input Will need PICC line placement prior to discharge COPD: 60 pack year history; smokes 1 ppd Uses Advair and Albuterol PRN; continue Declines Nicotine patch Recommend smoking cessation No signs of exacerbation History of PE/DVT: March 2022 unprovoked Continue Eliquis Liver Cirrhosis secondary to SOTOMAYOR: Follows with [facility]; last appt 09/24/22 EGD June 2021: Normal esophagus, empirically dilated. S/P RYGB. Normal jejunum; next EGD planned for 02/19 Barium swallow May 2022: Narrowed caliber of the cervical and thoracic portions of esophagus. No mass or obstructive lesion identified. Esophageal dysmotility. Echocardiogram: Apr 2019 - normal. 09/23/22: MELD score: 17 Continue Lactulose TID--titrate for 3-4 BMs Continue Lasix and Aldactone Continue current meds left leg cellulitis: Follows with outpatient wound care Completed course of Keflex Currently no signs of infection Continue meropenem as above Chronic back pain: On Methadone for narcotic addiction prescribed by [facility]. Has a neurostimulator. Continue Buprenorphine Mood disorder Continue Remeron Fibromyalgia, chronic pain syndrome: Continue buprenorphine TID, PRN methocarbamol Hypothyroidism: Continue Levothyroxine DVT Px: Eliquis Code Status Full Code Admission and Anticipated Discharge Date Admission Date: October 27, 2022 Subjective Patient is seen and examined at bedside States having generalized body ache Reports intermittent dysuria Denies any chest pain, dyspnea, hematuria, dizziness, nausea, vomiting, abdominal pain Discussed with family at bedside No other complaints Review of Systems Review of Systems: All systems reviewed & are unremarkable except as noted in Subjective Physical Exam Physical Exam: Physical Exam: Vitals signs as noted above General Appearance: Thin, frail, chronically appearing, no apparent distress Head: normocephalic, Atraumatic Eyes: normal inspection, EOMI Neck: supple, Trachea midline Respiratory/Chest: Normal breath sounds, CTA, No accessory muscle use Cardiovascular: S1, S2, No murmur Abdomen/GI:Soft, Non tender, Bowel sounds present Extremities/Musculoskeletal:normal inspection, Chronic 2+ Pedal edema Neurologic/Psych:AAOX3, grossly no focal neurological deficits Skin: normal color, warm, multiple abrasions on extremities Results & Data Results & Data Vital Signs (Past 12 Hours) Vital Signs Temp Pulse Pulse Resp BP Pulse Ox O2 Del Method 10/28/22 11:41 36.9 C 74 16 94/60 L 96 Room Air 10/28/22 11:34 66 10/28/22 07:25 36.7 C 67 16 94/61 L 94 Room Air 10/28/22 04:00 37.0 C 71 20 96/60 L 95 Room Air Laboratory Results Short CBC 10/27/22 10/28/22 Range/Units 14:14 07:19 WBC 6.15 5.18 (4.8-10.8) K/ul Hgb 10.9 L 8.8 L (12.0-16.0) g/dl Hct 35.2 L 29.2 L (37.0-47.0) % Plt Count 239 181 (130-400) K/uL BMP 10/27/22 10/28/22 14:14 07:19 Sodium 137 141 Potassium 3.8 3.7 Chloride 102 108 H Carbon Dioxide 31 31 BUN 34 H 28 H Creatinine 1.04 0.95 Glucose 82 85 Calcium 9.0 8.2 L Liver Function 10/27/22 10/28/22 Range/Units 14:14 07:19 Total Bilirubin 0.3 0.2 (0.2-1.0) mg/dl AST 30 20 (13-39) U/L ALT 18 11 (7-52) U/L Alkaline Phosphatase 143 H 102 (34-104) U/L Albumin 3.2 L 2.4 L (3.4-5.0) gm/dl Urine 10/27/22 Range/Units 15:50 Urine Color Yellow Urine Appearance Cloudy A (Clear) Urine pH 7.0 (4.5-7.5) Ur Specific [place] 1.016 (1.000-1.030) Urine Protein Negative (Negative) Urine Glucose (UA) Negative (Negative) (3) COPD (chronic obstructive pulmonary disease) COPD type: unspecified COPD Qualified Code(s): J44.9 - Chronic obstructive pulmonary disease, unspecified
[2022-10-28] MEDS: MEROPENEM 500 MG in SYRINGE 0 ML IV SCH ×2 (16:05→23:43)
[2022-10-28] MEDS ORDERED: ERTAPENEM SODIUM 1,000 MG in SYRINGE 0 ML IV SCH (17:00)
[2022-10-28] MEDS ORDERED: LORATADINE 10 MG TAB PO ONE (19:55)
[2022-10-28] MEDS: MIRTAZAPINE TAB 15 MG TAB PO SCH (20:36)
[2022-10-28] MEDS: FUROSEMIDE 20 MG TAB PO SCH (21:18)
[2022-10-29] MEDS: MEROPENEM 500 MG in SYRINGE 0 ML IV SCH ×3 (06:06→21:40)
[2022-10-29] MEDS: LEVOTHYROXINE SODIUM 100 MCG TABLET PO SCH (06:06)
--- NOTE | 2022-10-29 06:15 | Electrocardiogram Report ---
Test Reason : Blood Pressure : / mmHG Vent. Rate : 075 BPM Atrial Rate : 075 BPM P-R Int : 174 ms QRS Dur : 070 ms QT Int : 370 ms P-R-T Axes : 064 -23 056 degrees QTc Int : 413 ms Poor data quality, interpretation may be adversely affected Normal sinus rhythm Normal ECG When compared with ECG of 12-AUG-2022 11:35, Sinus rhythm has replaced Ectopic atrial rhythm Confirmed by Efraín Peters ([id number]) on 10/29/2022 6:15:06 AM Referred By: Confirmed By:Efraín Peters
[2022-10-29 07:16] LABS: Hemoglobin 9.4 g/dl (12.0-16.0); Mean Corpuscular Hemoglobin 28.1 pg (25.0-34.0); Mean Corpuscular Hgb Conc 31.3 g/dL (32.0-36.0); Mean Corpuscular Volume 89.6 fL (80.0-100.0); Mean Platelet Volume 11.6 fL (9.4-12.4); Platelet Count 179 K/uL (130-400); RDW Standard Deviation 53.3 fL (36.4-46.3); Red Blood Count 3.35 M/uL (4.20-5.40); White Blood Count 6.79 K/ul (4.8-10.8)
[2022-10-29 07:26] LABS: BUN Creatinine Ratio 21.7 (10-20); Calcium 8.3 mg/dl (8.6-10.3); Creatinine Clr Calc Pharmacy 49.2 ml/min; Est GFR (African American) 68.9 ml/min; Est GFR (Non-African American) 59.5 ml/min; Potassium 3.1 mmol/L (3.5-5.1)
[2022-10-29] MEDS: FLUTICASONE/VILANTEROL 200/25MCG 14 PUFFS/INHALER INH SCH (08:31)
[2022-10-29] MEDS: UMECLIDINIUM BROMIDE 62.5MCG/BLISTER 7 PUFFS/INHALER INH SCH (08:31)
[2022-10-29] MEDS: buprenorphine HCL 8 MG SUBL SL SCH ×3 (08:31→21:40)
[2022-10-29] MEDS: APIXABAN 5 MG TABLET PO SCH ×2 (08:32→21:40)
[2022-10-29] MEDS: SPIRONOLACTONE 100 MG TAB PO SCH (08:32)
[2022-10-29] MEDS: FUROSEMIDE 40 MG TAB PO SCH (08:32)
[2022-10-29] MEDS: PANTOprazole 40 MG TAB PO SCH ×2 (08:33→21:42)
[2022-10-29] MEDS: CHOLECALCIFEROL 1,000 UNITS 25 MCG TAB PO SCH (08:33)
[2022-10-29] MEDS: FAMOTIDINE 40 MG TABLET PO SCH ×2 (08:33→21:41)
[2022-10-29] MEDS: LACTULOSE SYRUP 30 GM/45 ML UDP PO SCH ×4 (08:33→21:42)
[2022-10-29] MEDS: CALCIUM CITRATE 950 MG TAB PO SCH ×2 (08:33→20:39)
[2022-10-29] MEDS: POTASSIUM CHLORIDE CRTAB 20 MEQ TABCR PO SCH ×2 (08:34→20:30)
[2022-10-29] MEDS: SENNA 8.6 MG TAB PO SCH ×2 (08:34→21:42)
[2022-10-29] MEDS ORDERED: METHOCARBAMOL 500 MG TABLET PO PRN (12:21)
--- NOTE | 2022-10-29 13:25 | Hospitalist Progress Note ---
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 No leukocytosis, does not appear septic. Completed course of Bactrim on 10/18. Culture Sensitivity outlined below from urine culture on 10/21. Only susceptible to Meropenem and Gentamycin; started on Ertapenem in ED. patient admitted to medical floor for further management. UTI: MDR Enterobacter Cloacae OPT tx for UTI: Bactrim started on 10/14 Urine Culture on 10/21: Enterebacter Cloacae Per review of the culture and sensitivity: Resistant to the following medications: Cefepime, cefoxitin, ceftriaxone, ciprofloxacin, Levaquin, Bactrim, Zosyn, and Macrobid Per review of the culture and sensitivity: Sensitive to the following medications: Meropenem and gentamicin -- Blood culture pending Urine culture growing gram-negative bacilli IV ertapenem transition to meropenem as recommended by ID. End date of antibiotic is November 03. Midline ordered Discussed with case management regarding set up of home health. 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 S/P RYGB. Normal jejunum; next EGD planned for 02/19 Barium swallow May 2022: Narrowed caliber of the cervical and thoracic portions of esophagus. No mass or obstructive lesion identified. Esophageal dysmotility. Echocardiogram: Apr 2019 - normal. 09/23/22: MELD score: 17 Continue Lactulose TID--titrate for 3-4 BMs Continue Lasix and Aldactone Continue current meds left leg cellulitis: Follows with outpatient wound care Completed course of Keflex Currently no signs of infection Continue meropenem as above Chronic back pain: On Methadone for narcotic addiction prescribed by [facility]. Has a neurostimulator. Continue Buprenorphine Mood disorder Continue Remeron Fibromyalgia, chronic pain syndrome: Continue buprenorphine TID, PRN methocarbamol Hypothyroidism: Continue Levothyroxine DVT Px: Eliquis Code Status Full Code Time spent evaluating patient, direct bedside care, chart review, placing orders, interpretation of diagnostic studies, discussion with consultants, patient, and family members, as well as other required patient management activities is 60 minutes. Please note the above document was generated using voice recognition software. It may contain grammatical, syntax or spelling errors. Any formal questions or concerns about the content, text or information contained within the body of this dictation should be directly addressed to the provider for clarification Admission and Anticipated Discharge Date Admission Date: October 27, 2022 Subjective Patient seen and examined at bedside. She is comfortable lying on the bed; not in any distress. Denies any fever, chills, abdominal pain or UTI symptoms. Review of Systems Review of Systems: All systems reviewed & are unremarkable except as noted in Subjective Physical Exam Physical Exam: Physical Exam: Vitals signs as noted above General Appearance: Thin, frail, chronically appearing, no apparent distress Head: normocephalic, Atraumatic Eyes: normal inspection, EOMI Neck: supple, Trachea midline Respiratory/Chest: Normal breath sounds, CTA, No accessory muscle use Cardiovascular: S1, S2, No murmur Abdomen/GI:Soft, Non tender, Bowel sounds present Extremities/Musculoskeletal:normal inspection, Chronic 2+ Pedal edema Neurologic/Psych:AAOX3, grossly no focal neurological deficits Skin: normal color, warm, multiple abrasions on extremities Results & Data Results & Data Vital Signs (Past 12 Hours) Vital Signs Temp Pulse Pulse Resp BP Pulse Ox O2 Del Method 10/29/22 11:16 36.9 C 78 18 92/62 L 96 Room Air 10/29/22 11:16 84 10/29/22 07:21 37.0 C 78 18 94/62 L 95 Room Air 10/29/22 03:19 36.5 C 106 H 18 106/64 95 Room Air Laboratory Results Laboratory Results WBC 6.79 K/ul (4.8-10.8) 10/29/22 05:51 RBC 3.35 M/uL (4.20-5.40) L 10/29/22 05:51 Hgb 9.4 g/dl (12.0-16.0) L 10/29/22 05:51 Hct 30.0 % (37.0-47.0) L 10/29/22 05:51 MCV 89.6 fL (80.0-100.0) 10/29/22 05:51 MCH 28.1 pg (25.0-34.0) 10/29/22 05:51 MCHC 31.3 g/dL (32.0-36.0) L 10/29/22 05:51 RDW Std Deviation 53.3 fL (36.4-46.3) H 10/29/22 05:51 RDW Coeff of Lionel 16.0 % (11.5-14.5) H 10/29/22 05:51 Plt Count 179 K/uL (130-400) 10/29/22 05:51 MPV 11.6 fL (9.4-12.4) 10/29/22 05:51 Immature Gran % (Auto) 0.3 % 10/27/22 14:14 Neut % (Auto) 54.9 % 10/27/22 14:14 Lymph % (Auto) 32.7 % 10/27/22 14:14 [place] % (Auto) 9.3 % 10/27/22 14:14 Eos % (Auto) 2.0 % 10/27/22 14:14 Baso % (Auto) 0.8 % 10/27/22 14:14 Neut # (Auto) 3.38 K/uL (1.40-6.50) 10/27/22 14:14 Lymph # (Auto) 2.01 K/uL (1.2-3.4) 10/27/22 14:14 [place] # (Auto) 0.57 K/uL (0.11-0.59) 10/27/22 14:14 Eos # (Auto) 0.12 K/uL (0-0.50) 10/27/22 14:14 Baso # (Auto) 0.05 K/uL (0-0.2) 10/27/22 14:14 Immature Gran # (Auto) 0.02 K/uL (0.01-0.20) 10/27/22 14:14 PT 10.4 Seconds (9.0-12.0) 10/27/22 14:14 INR 0.9 (0.9-1.1) 10/27/22 14:14 APTT 25.9 Seconds (21.0-31.0) 10/27/22 14:14 PTT Ratio 0.9 10/27/22 14:14 Sodium 140 mmol/L (136-145) 10/29/22 05:51 Potassium 3.1 mmol/L (3.5-5.1) L 10/29/22 05:51 Chloride 107 mmol/L (98-107) 10/29/22 05:51 Carbon Dioxide 29 mmol/L (21-32) 10/29/22 05:51 Anion Gap 4 (3-11) 10/29/22 05:51 BUN 23 mg/dl (6-23) 10/29/22 05:51 Creatinine 1.06 mg/dl (0.6-1.2) 10/29/22 05:51 Est Cr Clr Drug Dosing 49.2 ml/min 10/29/22 05:51 Est GFR ( Amer) 68.9 ml/min 10/29/22 05:51 Est GFR (Non-Af Amer) 59.5 ml/min 10/29/22 05:51 BUN/Creatinine Ratio 21.7 (10-20) H 10/29/22 05:51 Glucose 162 mg/dl (70-99(Fasting)) H 10/29/22 05:51 Calcium 8.3 mg/dl (8.6-10.3) L 10/29/22 05:51 Magnesium 2.0 mg/dl (1.7-2.4) 10/29/22 05:51 Total Bilirubin 0.2 mg/dl (0.2-1.0) 10/28/22 07:19 AST 20 U/L (13-39) 10/28/22 07:19 ALT 11 U/L (7-52) 10/28/22 07:19 Alkaline Phosphatase 102 U/L (34-104) 10/28/22 07:19 Total Protein 4.7 gm/dl (6.0-8.3) L D 10/28/22 07:19 Albumin 2.4 gm/dl (3.4-5.0) L 10/28/22 07:19 Globulin 2.3 gm/dl (2.5-4.0) L 10/28/22 07:19 Albumin/Globulin Ratio 1.0 (0.9-2) 10/28/22 07:19 Urine Color Yellow 10/27/22 15:50 Urine Appearance Cloudy (Clear) A 10/27/22 15:50 Urine pH 7.0 (4.5-7.5) 10/27/22 15:50 Ur Specific [place] 1.016 (1.000-1.030) 10/27/22 15:50 Urine Protein Negative (Negative) 10/27/22 15:50 Urine Glucose (UA) Negative (Negative) 10/27/22 15:50 Urine Ketones Negative (Negative) 10/27/22 15:50 Urine Blood Negative (Negative) 10/27/22 15:50 Urine Nitrite Positive (Negative) A 10/27/22 15:50 Urine Bilirubin Negative (Negative) 10/27/22 15:50 Urine Urobilinogen Negative (Negative) 10/27/22 15:50 Ur Leukocyte Esterase 2+ (Negative) H 10/27/22 15:50 Urine WBC (Auto) >30 /hpf (0-5) H 10/27/22 15:50 Urine RBC (Auto) 0-4 /hpf (0-4) 10/27/22 15:50 U Hyaline Cast (Auto) 1-5 /lpf (0-5) 10/27/22 15:50 U Epithel Cells (Auto) 0-5 /lpf (0-5) 10/27/22 15:50 Urine Bacteria (Auto) 4+ (Negative) H 10/27/22 15:50 Impressions Chest X-Ray 10/27/22 13:27 SINGLE VIEW CHEST CLINICAL HISTORY: Sepsis. FINDINGS: An AP, portable, upright chest radiograph is compared to chest x-ray and chest CT dated 08/12/2022. The heart is top normal for projection noting atherosclerotic calcification of the thoracic aorta. Chronic residual thickening similar to previous. No airspace consolidation or large pleural effusion is identified. No pneumothorax is seen. The skeletal structures are osteopenic. The bony thorax is grossly intact. Intrathecal leads project over the thoracic spine. Fusion hardware is seen in the lower cervical spine. Calcific tendinopathy is noted in the shoulders. IMPRESSION: No acute cardiopulmonary abnormality. ACT 112: Negative or not required by law. Electronically signed by: Alvino Hadley M.D. 10/27/2022 4:27 PM (3) COPD (chronic obstructive pulmonary disease) COPD type: unspecified COPD Qualified Code(s): J44.9 - Chronic obstructive pulmonary disease, unspecified
[2022-10-29] MEDS: MIRTAZAPINE TAB 15 MG TAB PO SCH (21:41)
[2022-10-29] MEDS: FUROSEMIDE 20 MG TAB PO SCH (21:44)
[2022-10-30] MEDS: LEVOTHYROXINE SODIUM 100 MCG TABLET PO SCH (05:41)
[2022-10-30] MEDS: MEROPENEM 500 MG in SYRINGE 0 ML IV SCH ×2 (05:43→12:05)
[2022-10-30 08:07] LABS: Est GFR (Non-African American) 77.7 ml/min
[2022-10-30] MEDS: buprenorphine HCL 8 MG SUBL SL SCH (08:31)
[2022-10-30] MEDS: SPIRONOLACTONE 100 MG TAB PO SCH (08:32)
[2022-10-30] MEDS: CHOLECALCIFEROL 1,000 UNITS 25 MCG TAB PO SCH (08:59)
[2022-10-30] MEDS: SENNA 8.6 MG TAB PO SCH (08:59)
[2022-10-30] MEDS: FAMOTIDINE 40 MG TABLET PO SCH (09:00)
[2022-10-30] MEDS: PANTOprazole 40 MG TAB PO SCH (09:00)
[2022-10-30] MEDS: APIXABAN 5 MG TABLET PO SCH (09:02)
[2022-10-30] MEDS: FUROSEMIDE 40 MG TAB PO SCH (09:02)
[2022-10-30] MEDS: POTASSIUM CHLORIDE CRTAB 20 MEQ TABCR PO SCH (09:02)
[2022-10-30] MEDS: CALCIUM CITRATE 950 MG TAB PO SCH (09:02)
[2022-10-30] MEDS: FLUTICASONE/VILANTEROL 200/25MCG 14 PUFFS/INHALER INH SCH (09:03)
[2022-10-30] MEDS: UMECLIDINIUM BROMIDE 62.5MCG/BLISTER 7 PUFFS/INHALER INH SCH (09:03)
[2022-10-30] MEDS: LACTULOSE SYRUP 30 GM/45 ML UDP PO SCH (09:03)
--- NOTE | 2022-10-30 13:49 | Discharge Summary ---
Date of Service October 30, 2022 Admission HPI Per Admitting Provider Ms. Hester is a 56 year old female that presented to the ED as recommended by her PCP for IV antibiotics for a multi-drug resistant UTI not susceptible to oral medications. She was recently treated for UTI and continues to experience dysuria. Denies visual hematuria or burning. As an outpatient urine culture performed 10/21/2022 positive for enterobacter cloacae complex; with multi drug resistance; including cefepime, cefoxitin, ceftriaxone, ciprofloxacin, levofloxacin, Macrobid, Zosyn, Bactrim. Susceptible to gentamicin and meropenem per C/S. Patient started on Invanz in the ED after discussion with Pharmacy; confirmed first dose received. Additional PMH includes: Fibromyalgia, hypothyroidism, COPD, HLD, cirrhosis with ascites and hepatic encephalopathy, history of DVT/PE, obesity status post gastric bypass ([address] Jim), history of TIA, and GERD. Recent inpatient hospitalization from 08/12 to 08/14 status post fall. No fractures or ICH, SDH and it was suspected to be related to diuretics and dehydration. Small amount of ascites on recent imaging noted; no paracentesis performed as no appreciable ascites noted on survey ultrasound. Patient denies headache, fevers, chills, abdominal pain or tenderness, visual or auditory changes, nausea, vomiting, diarrhea, hematochezia or hematuria, recent fall or trauma outside of recent admission. Pt has a history of DVT/PE in March 2022; on Eliquis. Has been followed by wound for left leg cellulitis that is improving. Patient will be admitted for further evaluation and management. Please see A/P for further details. Admission Exam Per Admitting Provider Neuro: AAOx4, PERRLA, no aphagia, memory changes, CNII-XII grossly intact HEENT: head normocephalic, moist mucus membranes CV: S1/S2, (-) M/G/R, (-) edema, cap refill < 3 seconds Resp: Lungs CTA in all garcía. On RA GI: Abdomen S/NT/ND, Ax4 bowel sounds, (-) CVA tenderness Musculoskeletal: 5/5 B/L UE strength, 5/5 B/L LE strength. No gait disturbance Skin: (-) rashes , (-) erythema. Psych: euthymic mood Principal Diagnosis UTI Discharge Exam Physical Exam: Vitals signs as noted above General Appearance: Thin, frail, chronically appearing, no apparent distress Head: normocephalic, Atraumatic Eyes: normal inspection, EOMI Neck: supple, Trachea midline Respiratory/Chest: Normal breath sounds, CTA, No accessory muscle use Cardiovascular: S1, S2, No murmur Abdomen/GI:Soft, Non tender, Bowel sounds present Extremities/Musculoskeletal:normal inspection, Chronic 2+ Pedal edema Neurologic/Psych:AAOX3, grossly no focal neurological deficits Skin: normal color, warm, multiple abrasions on extremities Discharge Data Allergies Allergy/AdvReac Type Severity Reaction Status Date / Time adhesive Allergy Severe Blister Unverified 10/27/22 16:52 Iodinated Contrast Media Allergy Severe ANAPHYLAXIS Verified 10/27/22 16:52 omeprazole Allergy Severe ANAPHYLAXIS Verified 10/27/22 16:52 peanut Allergy Intermediate LIPS SWELL Verified 10/27/22 16:52 FROM PEANUT SHELL DUST povidone-iodine Allergy Intermediate blisters Verified 10/27/22 16:52 [From Betadine] erythromycin base AdvReac Intermediate GI UPSET Verified 10/27/22 16:52 Consultations 10/27/22 17:18 ED Decision to Admit Stat 10/27/22 19:33 Consult Infectious Diseases Routine Hospital Course (1) UTI (urinary tract infection): (2) Multiple drug resistant organism (MDRO) culture positive: (3) COPD (chronic obstructive pulmonary disease): (4) Personal history of DVT (deep vein thrombosis): (5) 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 Patient had completed course of Bactrim on 10/18. Based on culture and sensitivity; only susceptible to Meropenem, ertapenem and Gentamycin. Patient was started on Ertapenem in ED. patient admitted to medical floor for further management. Infectious disease was consulted. Patient was recommended to be placed on meropenem 500 mg 3 times a day for 7 days. Home health arranged; midline placed. Patient discharged home with instruction to follow-up with PCP. Midline to be removed in MTU. All other medication continued as before. Please note the above document was generated using voice recognition software. It may contain grammatical, syntax or spelling errors. Any formal questions or concerns about the content, text or information contained within the body of this dictation should be directly addressed to the provider for clarification Total Time Total Time Spent Total Time Spent (In Minutes): 45 Total Time Includes: Examination of the Patient, Discharge Planning, Medication Reconciliation, Communication With Other Providers and Other Discharge Plan Discharge Items Patient Disposition: Home - Home Health Services Reason For Visit: UTI Discharge Diagnosis: Urinary tract infection. Activity: Resume your previous activity Non-emergency contact: Primary Care Provider Call non-emergency contact if: you have any medication questions and your symptoms worsen Follow-up/Referrals: Ishaan Pepe MD [Primary Care Provider] - 11/03/22 10:20 am (Date & Time 11/03/2022 10:20 AM Provider Mela Topete MD Department General Internal Medicine [facility] ) Jenna Lacey MD [Outside Practitioners] - 03/02/23 9:00 am (Date & Time 03/02/2023 9:00 AM Provider Jenna Lacey MD Department Endocrinology, [place] *You have been placed on a fast pass waitlist, meaning if a sooner appointment becomes available, you will be notified through the [employer] Portal.*) Addtl Attending Provider Instructions: You were admitted to the hospital with a urinary tract infection. You are prescribed antibiotic(meropenem 500 mg 3 times a day) to be taken for total of 7 days. Please follow-up with your primary care doctor as scheduled. Pending Studies at Discharge: No Stand-Alone Forms: My [facility] Georgina Goodman, Smoking Cessation Medications and DC Order Prescriptions: Continued buprenorphine HCl 8 mg tablet, sublingual 8 mg SUBLINGUAL TID ondansetron HCl 8 mg tablet 8 mg PO BID PRN (Reason: Nausea) mirtazapine 30 mg tablet 30 mg PO HS epinephrine 0.3 mg/0.3 mL auto-injector 0.3 mg IM UD PRN (Reason: Allergic Reaction) cyanocobalamin (vitamin B-12) 1,000 mcg/mL Solution 1,000 mcg IM .EVERY 4 WEEKS potassium chloride 10 mEq tablet extended release 20 meq PO BID lactulose 10 gram/15 mL Solution 45 ml PO TID Rx Instructions: Takes according to how well her bowels are moving. Usually only takes once a day. Maalox/Benadryl/Lidocaine 15 ml PO QID PRN (Reason: sore mouth) fluticasone propion-salmeterol [Advair Diskus] 250-50 mcg/dose Blister With Device 1 inh INHALATION BID albuterol sulfate [ProAir HFA] 90 mcg/actuation Hfa Aerosol Inhaler 2 puff INHALATION Q4 PRN (Reason: Shortness Of Breath Or Wheezing) calcium citrate 250 mg calcium Tablet 500 mg PO BID Spiriva Respimat 2.5 mcg/actuation Mist 2 puff INHALATION DAILY Probiotic 3 billion cell Capsule 3 mmu cells PO DAILY Rx Instructions: administer with a meal famotidine 40 mg tablet 40 mg PO AMHS sennosides [senna] 8.6 mg Tablet 8.6 mg PO BID Eliquis 5 mg tablet 5 mg PO BID pantoprazole 40 mg Tablet,Delayed Release (Dr/Ec) 40 mg PO BID Qty: 60 0RF furosemide [Lasix] 40 mg Tablet 40 mg PO QAM Qty: 30 0RF spironolactone 100 mg tablet 100 mg PO DAILY Qty: 30 0RF methocarbamol 750 mg tablet 750 mg PO TID PRN (Reason: MUSCLE SPASMS) cholecalciferol (vitamin D3) [Vitamin D3] 50 mcg (2,000 unit) Capsule 50 mcg PO QAM levothyroxine [Synthroid] 100 mcg tablet 100 mcg PO QAM Rx Instructions: Pt must have name brand furosemide [Lasix] 20 mg Tablet 20 mg PO PM Discharge Orders: Discharge Order (Routine); Ordered 10/30/22 Ordered By: Tor Perez Admission Data Admit Date/Time: 10/27/22 17:18 Attending Provider: Tor Perez Admit Provider: Zuly Sen Primary Care Provider: Ishaan Pepe Other Providers: Zuly Sen ; Matt Marquez ; Daya Regalado ; Luis Gold I. ; Billy Kaminski II ; Izabela Patton ; Wiley López ; Rich Block ; Jhon Bailey ; Hipolito Ruth Other Interventions: Discharge Summary Assessment (RN) Last Done: 10/30/22 10:46
== END 2022-10-30 12:29 | disposition home health service (06) | DRG 690 ==
LOC: ED 13:18 → SUATTDRO 17:18 → 2N 17:18

== ENCOUNTER 2024-06-29 17:35 | Observation (INO) ==
[2024-06-29] MEDS: diphenhydrAMINE 50 MG/ML VIAL IV STA (18:27)
[2024-06-29] MEDS: methylPREDNISolone 125 MG/2 ML VIAL IV STA (18:27)
--- NOTE | 2024-06-29 18:33 | Emergency Department Note ---
Impression & Plan Stroke-like symptoms ED Provider Note Provider: Sim Barnes MD CHIEF COMPLAINT: Fatigue, head neck pain, numbness, referred HISTORY OF PRESENT ILLNESS: Patient is a 58-year-old female extensive past medical history including DVT on Eliquis, UTI, liver cirrhosis, COPD, spinal stimulator, diabetes, hypothyroidism, history of gastric bypass presenting here today referred from her primary care office. Seen on June 20 by her report at [facility] for some left eye visual changes with some sharp jagged lines. Had CT imaging at that time. Reported be a little bit anemic with a mildly high troponin but sent home. Had outpatient follow-up for MRI including abdominal MRI this past Thursday in [facility]. Has a spinal stimulator and had to go there to have the procedure/MRI done. Reports she followed up with her primary doctor today. Notes the visual changes from last week have resolved. States that maybe her left seems just a little bit off today and she is a little bit of numbness just of her left hand. Chronic numbness of her legs is unchanged. Little bit of soreness to the left neck and head today. No syncope or trauma. Maybe a little bit of left chest pain earlier. Denies any significant shortness of breath or abdominal pain. Is not been regular taking her lactulose and states has been a while since he had a bowel movement but again denies discomfort here. Does states has been taking her 2-1/2 mg twice daily Eliquis as prescribed by her doctor. Has not had blood work since [place] on the but her doctor was concerned that she could have a stroke based on MRI her findings today and sent her here for further evaluation we could do additional blood work. She states she has had iron infusions in the past. PAST MEDICAL HISTORY: As noted above MEDICATIONS: Reviewed home medications with her at bedside SOCIAL HISTORY: Smoker PHYSICAL EXAM: GENERAL: alert and oriented in no acute distress on stretcher Head: normocephalic and atraumatic EYES: No injection, discharge or icterus. PERRL, EOMI. NECK: Trachea midline. Supple good range of motion ENT: Mucous membranes pink and moist. LUNGS: Airway patent. No retractions. Breath sounds clear with good air entry bilaterally. HEART: Regular rate and rhythm. No chest wall tenderness ABDOMEN: Soft and non-tender, without guarding or rebound. SKIN: Acyanotic, warm, dry, without rashes EXTREMITIES: Without swelling, tenderness or deformity NEUROLOGICAL: No aphasia. No facial droop or slurred speech. Moving all extremities equally with good strength. Little bit of diminished sensation of left hand but grossly intact. Otherwise symmetric in the face and lower extremities. Ambulatory. EK bpm normal sinus rhythm. No PVC or PAC. QTc 423. No acute ST segment elevation or depression. CONTINUOUS CARDIAC MONITORING: was ordered and showed a heart rate of 60s to 80s bpm in normal sinus rhythm Patient's laboratory studies and imaging reviewed. Differential includes Infection, dehydration, metabolic abnormality, hypo/hyperglycemia, electrolyte disturbance, anemia, hypoxia, cardiac sources, intracerebral event/neurologic, as well as other pathologies. IMPRESSION/MEDICAL DECISION MAKING: Patient presented from her primary doctor. He did call ahead and leave word with the charge nurse and reviewed this. Patient complex history. Reviewed PCP note from today as well as the [facility] ER note from June 20. Had MRI completed on June 24 findings questioning acute/early subacute infarcts although reports these are possibly nonspecific. Does have some known stenosis of the UNDERGROUND SUPERVISOR arteries. States she does well with IV contrast with Benadryl and will give this for CT of the head and CT angiograms here today. No trauma history reported. Patient on Eliquis and not a candidate for thrombolytics. Little bit of numbness in left hand and otherwise without significant aphasia/dysphagia, other new motor weakness notable. Basic blood work is sent. Reports a little bit of chest pain earlier. Is on Eliquis. Reports recent anemia. Will check iron panel and blood counts as well as troponin and EKG. States her troponin was mildly elevated [place] but stable on 2 draws. Will see what today's value is. EKG without evidence of STEMI. Blood work here low iron but blood counts stable to slightly improved from previous hemoglobin in the high tens. This is not indicative of active bleeding. No troponin elevation. CT head and CT angiograms per radiology report without significant findings here. Again given the questioning/concerning MRI findings from Thursday do believe that further observation here with neurology consultation in the morning is indicated. Can decide on antiplatelet and additional possible blood thinning at that point. Does not have scheduled outpatient neurology follow-up for a month based on records. Patient in agreement with this plan to stay. Patient is feeling symptomatically improved in regards to her head and neck pain. Hospitalist contacted. DIAGNOSIS: Strokelike symptoms DISPOSITION: Hospitalist will evaluate Patient was agreeable with this plan. Past Med/Surg History Problem List (Updated 06/29/24 @ 23:35 by Sim Barnes M.D.) Stroke-like symptoms (Acute) Stroke-like symptoms Infection with multi drug resistant Enterobacter cloacae (Acute) UTI (urinary tract infection) due to Enterococcus (Acute) Chronic back pain Cellulitis Multiple drug resistant organism (MDRO) culture positive Personal history of DVT (deep vein thrombosis) UTI (urinary tract infection) Urinary tract infection due to Enterococcus Acute renal failure (Acute) Fall (Acute) Chronic pain (Acute) Fall KHANG (acute kidney injury) Liver cirrhosis secondary to SOTOMAYOR (Acute) Transient ischemic attack (TIA) treated in patient at [facility] 05/05/19-05/06/19. placed on Plavix & ASA Bronchitis (Acute) Cervical radiculopathy (Chronic) COPD (chronic obstructive pulmonary disease) (Chronic) Status post gastric bypass for obesity (Chronic) Status post cervical discectomy (Acute) Mood disorder (Chronic) Post laminectomy syndrome (Chronic) Arm weakness (Acute) Encounter for pre-operative examination COVID-19 (Acute) Chest pain (Acute) Shortness of breath (Acute) Chest discomfort Epigastric discomfort Tibial vein thrombosis Dyspepsia Hypokalemia (Acute) Edema (Acute) Diabetes mellitus, type II (Chronic) pt denies Hyperlipidemia (Chronic) Peripheral neuropathy (Chronic) BILATERAL FEET Depression (Chronic) Anxiety (Chronic) Hypothyroidism (Chronic) Degenerative disc disease (Chronic) S/P insertion of spinal cord stimulator (Chronic) [facility]. Turns it off for surgery - has remote. Hx of gastric bypass (Chronic) Vickey en Y Fibromyalgia (Chronic) Medical History Cor pulmonale w/ PE/EVT 04/2022 DVT (deep venous thrombosis) 04/2022 femoral vein, right lower extremity Cirrhosis Rotator cuff injury from fall 04/2022 Malnourished Fractured pelvis 04/2022 from a fall, currently using a walker Hx pulmonary embolism 04/2022- [facility], currently taking eliquis COPD (chronic obstructive pulmonary disease) History of COVID-19 06/2020- does not remember what her symptoms were- NO HOSPITALIZATION 05/2022 - hospitalized [facility] Weight loss, unintentional Dysphagia Bronchitis hx Sinus infection hx Falls frequently d/t drop foot Osteoarthritis Peptic ulcer disease HX GERD (gastroesophageal reflux disease) History of esophageal stricture Temporomandibular joint disorder MILD. CLICKS BUT NEVER LOCKED. Foot drop RIGHT Migraine HX Surgical History Hx of colonoscopy History of esophagogastroduodenoscopy (EGD) H/O cervical discectomy with a cage (done at [facility]) Full ROM. Status post surgery right leg nerve decompression for foot drop S/P ANSHU-BSO Hx of lumpectomy (-) RIGHT BREAST History of breast biopsy MULITPLE ON BILATERAL BREASTS History of laminectomy LUMBAR AREA X2 History of cholecystectomy History of esophageal dilatation Family History Family/Other Family hx of colon cancer Father Family history of diabetes mellitus Grandmother (Maternal) Family history of diabetes mellitus Other No family history of adverse response to anesthesia Social History (Updated 06/29/24 @ 21:40 by Kelli Mary PA-C) Smoking Status: Current every day smoker Tobacco Type: Cigarettes Cigarettes Per Day: ~1/2 pack/day; Second Hand Exposure: No; Do You Dip or Chew Tobacco: No; Hx Alcohol Use: No Hx Substance Use: No Preferred Language: Spanish Communication Ability: Effective 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 Beliefs That Will Affect Care: None marital status: Current Living Situation: Family Current Living Situation Comment: Lives with and children at home Feels Safe at Home: Yes Assistive Devices: Nebulizer, Walker and Wheelchair Allergies Allergies Allergy/AdvReac Type Severity Reaction Status Date / Time adhesive Allergy Severe Blister Verified 06/29/24 19:11 Iodinated Contrast Media Allergy Severe ANAPHYLAXIS Verified 06/29/24 19:11 omeprazole Allergy Severe ANAPHYLAXIS Verified 06/29/24 19:11 peanut Allergy Intermediate LIPS SWELL Verified 06/29/24 19:11 FROM PEANUT SHELL DUST povidone-iodine Allergy Intermediate blisters Verified 06/29/24 19:11 [From Betadine] erythromycin base AdvReac Intermediate GI UPSET Verified 06/29/24 19:11 Home Meds Home Medications Medication Instructions Recorded Confirmed buprenorphine HCl 8 mg sublingual 8 mg sublingual QID 10/10/21 06/29/24 tablet mirtazapine 30 mg tablet 30 mg PO HS 10/10/21 06/29/24 ondansetron HCl 8 mg tablet 8 mg PO BID PRN Nausea 10/10/21 06/29/24 cyanocobalamin (vitamin B-12) 1,000 mcg IM .EVERY 4 WEEKS 11/09/21 06/29/24 1,000 mcg/mL injection solution epinephrine 0.3 mg/0.3 mL 0.3 mg IM UD PRN Allergic Reaction 11/09/21 06/29/24 injection, auto-injector methocarbamol 750 mg tablet 750 mg PO TID PRN MUSCLE SPASMS 06/09/22 06/29/24 albuterol sulfate 90 mcg/actuation 2 puff inhalation Q4 PRN Shortness 08/12/22 06/29/24 aerosol inhaler (ProAir HFA) Of Breath Or Wheezing calcium citrate 500 mg PO BID 08/12/22 06/29/24 lactobacillus combination no.4 3 3 mmu cells PO DAILY 08/12/22 06/29/24 billion cell capsule (Probiotic) lactulose 10 gram/15 mL oral 45 ml PO TID PRN BOWEL MOVEMENT 08/12/22 06/29/24 solution sennosides 8.6 mg tablet (senna) 8.6 mg PO BID 08/12/22 06/29/24 apixaban 2.5 mg tablet (Eliquis) 2.5 mg PO BID 06/29/24 06/29/24 cholecalciferol (vitamin D3) 25 3,000 unit PO QAM 06/29/24 06/29/24 mcg (1,000 unit) tablet furosemide 40 mg tablet (Lasix) 40 mg PO QAM PRN Fluid Retention 06/29/24 06/29/24 levothyroxine 112 mcg tablet 112 mcg PO QAM 06/29/24 06/29/24 (Synthroid) Previous Rx's Medication Instructions Recorded pantoprazole 40 mg tablet,delayed 40 mg PO BID #60 tabs 08/14/22 release Results & Data (ED) Vital Signs Vital Signs - 24 hr 06/29/24 17:40 06/29/24 18:32 06/29/24 18:39 Temperature 36.7 C Temperature Source Skin Pulse Rate 85 Pulse Rate [Apical] 73 Respiratory Rate 16 18 Respiratory Effort / Characteristics Non-Labored Spontaneous Respiratory Depth Normal Respiratory Pattern Regular Blood Pressure 158/92 H Blood Pressure [Right Arm] 175/100 H Blood Pressure Mean 114 Blood Pressure Mean [Right Arm] 125 Pulse Oximetry 98 98 96 Oxygen Delivery Method Room Air Room Air Room Air Sepsis Recent Fever Within 48 Hours No Sepsis New/Unexplained Change in Mental Status N/A Sepsis Action Taken by Nursing No Action Required 06/29/24 19:05 06/29/24 20:30 06/29/24 22:30 Temperature Temperature Source Pulse Rate 79 Pulse Rate [Apical] 73 63 Respiratory Rate 26 H 20 Respiratory Effort / Characteristics Respiratory Depth Respiratory Pattern Blood Pressure Blood Pressure [Right Arm] 146/93 H 149/91 H Blood Pressure Mean Blood Pressure Mean [Right Arm] 110 110 Pulse Oximetry 97 97 Oxygen Delivery Method Room Air Room Air Sepsis Recent Fever Within 48 Hours Sepsis New/Unexplained Change in Mental Status Sepsis Action Taken by Nursing 06/29/24 23:06 Temperature Temperature Source Pulse Rate 69 Pulse Rate [Apical] Respiratory Rate Respiratory Effort / Characteristics Respiratory Depth Respiratory Pattern Blood Pressure Blood Pressure [Right Arm] Blood Pressure Mean Blood Pressure Mean [Right Arm] Pulse Oximetry Oxygen Delivery Method Sepsis Recent Fever Within 48 Hours Sepsis New/Unexplained Change in Mental Status Sepsis Action Taken by Nursing Laboratory Data 06/29/24 18:24 06/29/24 18:24 Lab Results 06/29/24 06/29/24 06/29/24 Range/Units 18:24 18:25 18:29 WBC 5.47 (4.8-10.8) K/ul RBC 4.49 (4.20-5.40) M/uL Hgb 10.8 L (12.0-16.0) g/dl POC Hgb 11.9 L (12.0-16.0) g/dl Hct 35.8 L (37.0-47.0) % POC Hct 35 L (37-47) % MCV 79.7 L (80.0-100.0) fL MCH 24.1 L (25.0-34.0) pg MCHC 30.2 L (32.0-36.0) g/dL RDW Std Deviation 44.6 (36.4-46.3) fL RDW Coeff of Lionel 15.4 H (11.5-14.5) % Plt Count 202 (130-400) K/uL MPV 12.2 (9.4-12.4) fL Immature Gran % (Auto) 0.4 % Neut % (Auto) 51.0 % Lymph % (Auto) 40.0 % [place] % (Auto) 7.5 % Eos % (Auto) 0.7 % Baso % (Auto) 0.4 % Neut # (Auto) 2.79 (1.40-6.50) K/uL Lymph # (Auto) 2.19 (1.20-3.40) K/uL [place] # (Auto) 0.41 (0.11-0.59) K/uL Eos # (Auto) 0.04 (0.00-0.50) K/uL Baso # (Auto) 0.02 (0.00-0.20) K/uL Immature Gran # (Auto) 0.02 (0.01-0.20) K/uL PT 10.3 (9.0-12.0) Seconds INR 0.9 (0.9-1.1) POC Sodium 140 (135-144) mmol/L Sodium 138 (136-145) mmol/L POC Potassium 3.7 (3.3-5.0) mmol/L Potassium 3.7 (3.5-5.1) mmol/L POC Chloride 101 (101-112) mmol/L Chloride 105 (98-107) mmol/L Carbon Dioxide 29 (21-32) mmol/L POC Total CO2 26 (24-31) mmol/L Anion Gap 4 (3-11) POC Anion Gap 17.0 (16-25) mmol/L POC BUN 11 (7-18) mg/dl BUN 11 (6-23) mg/dl Creatinine 0.83 (0.6-1.2) mg/dl POC Creatinine 0.9 (0.6-1.3) mg/dl Est Cr Clr Drug Dosing 69.7 ml/min eGFR 82.69 BUN/Creatinine Ratio 13.3 (10-20) Glucose 87 (70-99(Fasting)) mg/dl POC Glucose (other) 88 (70-99) mg/dl Calcium 9.2 (8.6-10.3) mg/dl POC Ioniz Calcium Justus 1.19 (1.12-1.32) mmol/l Magnesium 2.0 (1.7-2.4) mg/dl Iron 37 (35-150) mcg/dl TIBC 571 H (250-450) mcg/dl Transferrin 408 H (200-360) mg/dl Transferrin % Sat 6 L (15-50) % Ferritin 6.0 L (8-388) ng/ml Total Bilirubin 0.5 (0.2-1.0) mg/dl AST 24 (13-39) U/L ALT 13 (7-52) U/L Alkaline Phosphatase 100 (34-104) U/L Ammonia 34.0 (18-72) umol/L Troponin I High Sens 3.8 (0-14) pg/ml Total Protein 7.1 (6.0-8.3) gm/dl Albumin 4.1 (3.4-5.0) gm/dl Globulin 3.0 (2.5-4.0) gm/dl Albumin/Globulin Ratio 1.4 (0.9-2) TSH 0.072 L (0.300-4.500) uIu/ml Free T4 1.04 (0.61-1.60) ng/dl Urine Color Yellow Urine Appearance Clear (Clear) Urine pH 5.5 (4.5-7.5) Ur Specific [place] 1.015 (1.000-1.030) Urine Protein Negative (Negative) Urine Glucose (UA) Negative (Negative) Urine Ketones Negative (Negative) Urine Blood Negative (Negative) Urine Nitrite Negative (Negative) Urine Bilirubin Negative (Negative) Urine Urobilinogen Negative (Negative) Ur Leukocyte Esterase Negative (Negative) Adenovirus (PCR) (NotDetected) B. pertussis DNA (PCR) (NotDetected) B.parapertussis DNA PCR (NotDetected) C. pneumoniae DNA (PCR) (NotDetected) Coronavirus OC43 (PCR) (NotDetected) Coronavirus HKU1 (PCR) (NotDetected) Coronavirus 229E (PCR) (NotDetected) SARS-CoV-2 (PCR) (NotDetected) Coronavirus NL63 (PCR) (NotDetected) Human Metapneumovir PCR (NotDetected) Influenza Type A (PCR) (NotDetected) Influenza Type B (PCR) (NotDetected) M. pneumoniae (PCR) (NotDetected) Parainfluenza 1 (PCR) (NotDetected) Parainfluenza 2 (PCR) (NotDetected) Parainfluenza 3 (PCR) (NotDetected) Parainfluenza 4 (PCR) (NotDetected) RSV (PCR) (NotDetected) Entero/Rhino (PCR) (NotDetected) Blood Type A Positive Antibody Screen NEGATIVE 06/29/24 Range/Units 18:30 WBC (4.8-10.8) K/ul RBC (4.20-5.40) M/uL Hgb (12.0-16.0) g/dl POC Hgb (12.0-16.0) g/dl Hct (37.0-47.0) % POC Hct (37-47) % MCV (80.0-100.0) fL MCH (25.0-34.0) pg MCHC (32.0-36.0) g/dL RDW Std Deviation (36.4-46.3) fL RDW Coeff of Lionel (11.5-14.5) % Plt Count (130-400) K/uL MPV (9.4-12.4) fL Immature Gran % (Auto) % Neut % (Auto) % Lymph % (Auto) % [place] % (Auto) % Eos % (Auto) % Baso % (Auto) % Neut # (Auto) (1.40-6.50) K/uL Lymph # (Auto) (1.20-3.40) K/uL [place] # (Auto) (0.11-0.59) K/uL Eos # (Auto) (0.00-0.50) K/uL Baso # (Auto) (0.00-0.20) K/uL Immature Gran # (Auto) (0.01-0.20) K/uL PT (9.0-12.0) Seconds INR (0.9-1.1) POC Sodium (135-144) mmol/L Sodium (136-145) mmol/L POC Potassium (3.3-5.0) mmol/L Potassium (3.5-5.1) mmol/L POC Chloride (101-112) mmol/L Chloride (98-107) mmol/L Carbon Dioxide (21-32) mmol/L POC Total CO2 (24-31) mmol/L Anion Gap (3-11) POC Anion Gap (16-25) mmol/L POC BUN (7-18) mg/dl BUN (6-23) mg/dl Creatinine (0.6-1.2) mg/dl POC Creatinine (0.6-1.3) mg/dl Est Cr Clr Drug Dosing ml/min eGFR BUN/Creatinine Ratio (10-20) Glucose (70-99(Fasting)) mg/dl POC Glucose (other) (70-99) mg/dl Calcium (8.6-10.3) mg/dl POC Ioniz Calcium Justus (1.12-1.32) mmol/l Magnesium (1.7-2.4) mg/dl Iron (35-150) mcg/dl TIBC (250-450) mcg/dl Transferrin (200-360) mg/dl Transferrin % Sat (15-50) % Ferritin (8-388) ng/ml Total Bilirubin (0.2-1.0) mg/dl AST (13-39) U/L ALT (7-52) U/L Alkaline Phosphatase (34-104) U/L Ammonia (18-72) umol/L Troponin I High Sens (0-14) pg/ml Total Protein (6.0-8.3) gm/dl Albumin (3.4-5.0) gm/dl Globulin (2.5-4.0) gm/dl Albumin/Globulin Ratio (0.9-2) TSH (0.300-4.500) uIu/ml Free T4 (0.61-1.60) ng/dl Urine Color Urine Appearance (Clear) Urine pH (4.5-7.5) Ur Specific [place] (1.000-1.030) Urine Protein (Negative) Urine Glucose (UA) (Negative) Urine Ketones (Negative) Urine Blood (Negative) Urine Nitrite (Negative) Urine Bilirubin (Negative) Urine Urobilinogen (Negative) Ur Leukocyte Esterase (Negative) Adenovirus (PCR) Not Detected (NotDetected) B. pertussis DNA (PCR) Not Detected (NotDetected) B.parapertussis DNA PCR Not Detected (NotDetected) C. pneumoniae DNA (PCR) Not Detected (NotDetected) Coronavirus OC43 (PCR) Not Detected (NotDetected) Coronavirus HKU1 (PCR) Not Detected (NotDetected) Coronavirus 229E (PCR) Not Detected (NotDetected) SARS-CoV-2 (PCR) Not Detected (NotDetected) Coronavirus NL63 (PCR) Not Detected (NotDetected) Human Metapneumovir PCR Not Detected (NotDetected) Influenza Type A (PCR) Not Detected (NotDetected) Influenza Type B (PCR) Not Detected (NotDetected) M. pneumoniae (PCR) Not Detected (NotDetected) Parainfluenza 1 (PCR) Not Detected (NotDetected) Parainfluenza 2 (PCR) Not Detected (NotDetected) Parainfluenza 3 (PCR) Not Detected (NotDetected) Parainfluenza 4 (PCR) Not Detected (NotDetected) RSV (PCR) Not Detected (NotDetected) Entero/Rhino (PCR) Not Detected (NotDetected) Blood Type Antibody Screen Administered Medications Apixaban (Apixaban 2.5 Mg Tab) 2.5 mg PO BID MEGHNA Stop: 07/29/24 22:14 Last Admin: 06/29/24 23:04 Dose: 2.5 mg Documented By: JUN Atorvastatin Calcium (Atorvastatin 40 Mg Tab) 40 mg PO HS MEGHNA Stop: 07/29/24 22:19 Last Admin: 06/29/24 23:03 Dose: 40 mg Documented By: JUN Buprenorphine HCl (Buprenorphine Hcl 8 Mg Subl) 8 mg SL QID MEGHNA Stop: 07/29/24 21:19 Last Admin: 06/29/24 21:43 Dose: 8 mg Documented By: RONALD Lactulose (Lactulose Syrup 30 Gm/45 Ml Udp) 30 gm PO HS MEGHNA Stop: 07/29/24 22:14 Last Admin: 06/29/24 23:04 Dose: 30 gm Documented By: JUN Mirtazapine (Mirtazapine Tab 15 Mg Tab) 30 mg PO HS MEGHNA Stop: 07/29/24 22:14 Last Admin: 06/29/24 23:04 Dose: 30 mg Documented By: JUN Discontinued Medications Aspirin (Aspirin 81 Mg Ectab) 81 mg PO NOW STA Stop: 06/29/24 22:14 Last Admin: 06/29/24 23:03 Dose: 81 mg Documented By: JUN Diphenhydramine HCl (Diphenhydramine 50 Mg/Ml Vial) 50 mg IV NOW STA Stop: 06/29/24 18:13 Last Admin: 06/29/24 18:27 Dose: 50 mg Documented By: ANTONI Ioversol (Optiray 320 125ml) 115 ml IV ONCE ONE Stop: 06/29/24 18:48 Last Admin: 06/29/24 18:48 Dose: 115 ml Documented By: MISAEL Methylprednisolone (Methylprednisolone 125 Mg/2 Ml Vial) 125 mg IV NOW STA Stop: 06/29/24 18:13 Last Admin: 06/29/24 18:27 Dose: 125 mg Documented By: ANTONI Potassium Chloride (Potassium Chloride Crtab 20 Meq Tabcr) 40 meq PO NOW STA Stop: 06/29/24 19:58 Last Admin: 06/29/24 20:07 Dose: 40 meq Documented By: RONALD Imaging Data Radiologist's Impression: Chest X-Ray 06/29/24 18:11 Chest radiograph, one view History: Possible stroke. Left hand numbness Comparison: 10/27/2022 Findings: Single AP view of the chest performed. No focal consolidation or pleural effusion. No pneumothorax. The cardiomediastinal silhouette is within normal limits. Normal pulmonary vascularity. No evidence for lymphadenopathy. No visualized bony or soft tissue abnormality. An intrathecal stimulator device overlies the thoracic spine. Impression: Normal chest radiograph Electronically signed by Mike Arcos 06-29-2024 7:[address] 06/29/24 18:[address] without contrast CT angiogram of the neck CT angiogram of the brain with contrast Provided History: Neuro deficit Comparison: None Technique: HEAD CT: Using multidetector thin collimation helical acquisition technique, axial, coronal and sagittal CT images from the skull base to the vertex were obtained without intravenous contrast. HEAD and NECK CTA: During rapid bolus intravenous injection of nonionic contrast material, axial images were obtained using thin collimation multidetector helical technique from the base of the neck through the of vertex of the head. This CT angiogram data was reconstructed at thin intervals with mild overlap. 3D reconstructions were obtained. The axial source images, multiplanar reformations, 3D reconstructions in both maximum intensity projection display and volume rendered models were reviewed. Dose reduction techniques were achieved by using automatic exposure control and/or adjustment of mA and/or kV according to patient size and/or use of iterative reconstruction technique. Findings: Head CT: There is no intracranial hemorrhage, mass effect, or midline shift. Owens/white matter differentiation in both cerebral hemispheres is preserved. Ventricles are proportionate to the cerebral sulci. Head CTA demonstrates no aneurysm or stenosis of the major intracranial arteries. Neck CTA demonstrates no stenosis of the major cervical arteries. The origins of the great vessels from the aortic arch are patent. No mass is noted within the visualized portions of the cervical soft tissues or lung apices. ACDF changes noted of the cervical spine at C6-7. Impression: 1. Head CTA demonstrates no aneurysm or stenosis of the major intracranial arteries, 2. Neck CTA demonstrates no stenosis of the major cervical arteries. 3. No intracranial hemorrhage on the noncontrast head CT. Electronically signed by Mike Arcos 06-29-2024 7:19 PM Head CTA 06/29/24 18:[address] without contrast CT angiogram of the neck CT angiogram of the brain with contrast Provided History: Neuro deficit Comparison: None Technique: HEAD CT: Using multidetector thin collimation helical acquisition technique, axial, coronal and sagittal CT images from the skull base to the vertex were obtained without intravenous contrast. HEAD and NECK CTA: During rapid bolus intravenous injection of nonionic contrast material, axial images were obtained using thin collimation multidetector helical technique from the base of the neck through the of vertex of the head. This CT angiogram data was reconstructed at thin intervals with mild overlap. 3D reconstructions were obtained. The axial source images, multiplanar reformations, 3D reconstructions in both maximum intensity projection display and volume rendered models were reviewed. Dose reduction techniques were achieved by using automatic exposure control and/or adjustment of mA and/or kV according to patient size and/or use of iterative reconstruction technique. Findings: Head CT: There is no intracranial hemorrhage, mass effect, or midline shift. Owens/white matter differentiation in both cerebral hemispheres is preserved. Ventricles are proportionate to the cerebral sulci. Head CTA demonstrates no aneurysm or stenosis of the major intracranial arteries. Neck CTA demonstrates no stenosis of the major cervical arteries. The origins of the great vessels from the aortic arch are patent. No mass is noted within the visualized portions of the cervical soft tissues or lung apices. ACDF changes noted of the cervical spine at C6-7. Impression: 1. Head CTA demonstrates no aneurysm or stenosis of the major intracranial arteries, 2. Neck CTA demonstrates no stenosis of the major cervical arteries. 3. No intracranial hemorrhage on the noncontrast head CT. Electronically signed by Mike Arcos 06-29-2024 7:19 PM Neck CTA 06/29/24 18:[address] without contrast CT angiogram of the neck CT angiogram of the brain with contrast Provided History: Neuro deficit Comparison: None Technique: HEAD CT: Using multidetector thin collimation helical acquisition technique, axial, coronal and sagittal CT images from the skull base to the vertex were obtained without intravenous contrast. HEAD and NECK CTA: During rapid bolus intravenous injection of nonionic contrast material, axial images were obtained using thin collimation multidetector helical technique from the base of the neck through the of vertex of the head. This CT angiogram data was reconstructed at thin intervals with mild overlap. 3D reconstructions were obtained. The axial source images, multiplanar reformations, 3D reconstructions in both maximum intensity projection display and volume rendered models were reviewed. Dose reduction techniques were achieved by using automatic exposure control and/or adjustment of mA and/or kV according to patient size and/or use of iterative reconstruction technique. Findings: Head CT: There is no intracranial hemorrhage, mass effect, or midline shift. Owens/white matter differentiation in both cerebral hemispheres is preserved. Ventricles are proportionate to the cerebral sulci. Head CTA demonstrates no aneurysm or stenosis of the major intracranial arteries. Neck CTA demonstrates no stenosis of the major cervical arteries. The origins of the great vessels from the aortic arch are patent. No mass is noted within the visualized portions of the cervical soft tissues or lung apices. ACDF changes noted of the cervical spine at C6-7. Impression: 1. Head CTA demonstrates no aneurysm or stenosis of the major intracranial arteries, 2. Neck CTA demonstrates no stenosis of the major cervical arteries. 3. No intracranial hemorrhage on the noncontrast head CT. Electronically signed by Mike Arcos 06-29-2024 7:19 PM Discharge Plan Visit Data Chief Complaint: Referred by Doctor Stated Complaint: LEFT SIDE NUMB, SOB, NECK/CHEST PAIN, REF BY DOC ED Provider: Sim Barnes Discharge Problem: Stroke-like symptoms Patient Disposition: Being Evaluated by Hospitalist Forms [facility] Prescriptions: No Action buprenorphine HCl 8 mg tablet, sublingual 8 mg SUBLINGUAL QID ondansetron HCl 8 mg tablet 8 mg PO BID PRN (Reason: Nausea) mirtazapine 30 mg tablet 30 mg PO HS epinephrine 0.3 mg/0.3 mL auto-injector 0.3 mg IM UD PRN (Reason: Allergic Reaction) cyanocobalamin (vitamin B-12) 1,000 mcg/mL Solution 1,000 mcg IM .EVERY 4 WEEKS lactulose 10 gram/15 mL Solution 45 ml PO TID PRN (Reason: BOWEL MOVEMENT) Rx Instructions: Takes according to how well her bowels are moving. Usually only takes once a day. albuterol sulfate [ProAir HFA] 90 mcg/actuation Hfa Aerosol Inhaler 2 puff INHALATION Q4 PRN (Reason: Shortness Of Breath Or Wheezing) calcium citrate 250 mg calcium Tablet 500 mg PO BID Probiotic 3 billion cell Capsule 3 mmu cells PO DAILY Rx Instructions: administer with a meal sennosides [senna] 8.6 mg Tablet 8.6 mg PO BID pantoprazole 40 mg Tablet,Delayed Release (Dr/Ec) 40 mg PO BID Qty: 60 0RF methocarbamol 750 mg tablet 750 mg PO TID PRN (Reason: MUSCLE SPASMS) levothyroxine [Synthroid] 112 mcg tablet 112 mcg PO QAM Rx Instructions: BRAND NAME ONLY cholecalciferol (vitamin D3) 25 mcg (1,000 unit) tablet 3,000 unit PO QAM Eliquis 2.5 mg tablet 2.5 mg PO BID furosemide [Lasix] 40 mg tablet 40 mg PO QAM PRN (Reason: Fluid Retention) Referrals Referrals: Ishaan Pepe MD [Primary Care Provider] -
[2024-06-29 18:41] LABS: iSTAT Creatinine 0.9 mg/dl (0.6-1.3); iSTAT Hemoglobin 11.9 g/dl (12.0-16.0); iSTAT Ionized Calcium 1.19 mmol/l (1.12-1.32); iSTAT Potassium 3.7 mmol/L (3.3-5.0)
[2024-06-29] MEDS: OPTIRAY 320 125ml IV ONE (18:48)
[2024-06-29 18:53] LABS: Basophils # (auto) 0.02 K/uL (0.00-0.20); Basophils % (auto) 0.4 %; Eosinophils # (auto) 0.04 K/uL (0.00-0.50); Eosinophils % (auto) 0.7 %; Hematocrit (blood only) 35.8 % (37.0-47.0); Hemoglobin 10.8 g/dl (12.0-16.0); Immature Granulocytes # (auto) 0.02 K/uL (0.01-0.20); Immature Granulocytes % (auto) 0.4 %; Lymphocytes # (auto) 2.19 K/uL (1.20-3.40); Mean Corpuscular Hemoglobin 24.1 pg (25.0-34.0); Mean Corpuscular Hgb Conc 30.2 g/dL (32.0-36.0); Mean Corpuscular Volume 79.7 fL (80.0-100.0); Mean Platelet Volume 12.2 fL (9.4-12.4); Monocytes # (auto) 0.41 K/uL (0.11-0.59); Monocytes % (auto) 7.5 %; Neutrophils # (auto) 2.79 K/uL (1.40-6.50); Platelet Count 202 K/uL (130-400); RDW Coefficient of Variation 15.4 % (11.5-14.5); RDW Standard Deviation 44.6 fL (36.4-46.3); Red Blood Count 4.49 M/uL (4.20-5.40); White Blood Count 5.47 K/ul (4.8-10.8)
[2024-06-29 18:57] LABS: Albumin Level 4.1 gm/dl (3.4-5.0); BUN Creatinine Ratio 13.3 (10-20); Bilirubin,Total 0.5 mg/dl (0.2-1.0); Calcium 9.2 mg/dl (8.6-10.3); Creatinine Clr Calc Pharmacy 69.7 ml/min; Potassium 3.7 mmol/L (3.5-5.1); Total Protein 7.1 gm/dl (6.0-8.3)
[2024-06-29 19:03] LABS: Troponin I High Sensitivity 3.8 pg/ml (0-14)
[2024-06-29 19:09] LABS: INR 0.9 (0.9-1.1); Prothrombin Time 10.3 Seconds (9.0-12.0)
[2024-06-29 19:13] LABS: Thyroid Stimulating Hormone 0.072 uIu/ml (0.300-4.500)
--- NOTE | 2024-06-29 19:20 | CT Scan Report ---
Head CT without contrast CT angiogram of the neck CT angiogram of the brain with contrast Provided History: Neuro deficit Comparison: None Technique: HEAD CT: Using multidetector thin collimation helical acquisition technique, axial, coronal and sagittal CT images from the skull base to the vertex were obtained without intravenous contrast. HEAD and NECK CTA: During rapid bolus intravenous injection of nonionic contrast material, axial images were obtained using thin collimation multidetector helical technique from the base of the neck through the of vertex of the head. This CT angiogram data was reconstructed at thin intervals with mild overlap. 3D reconstructions were obtained. The axial source images, multiplanar reformations, 3D reconstructions in both maximum intensity projection display and volume rendered models were reviewed. Dose reduction techniques were achieved by using automatic exposure control and/or adjustment of mA and/or kV according to patient size and/or use of iterative reconstruction technique. Findings: Head CT: There is no intracranial hemorrhage, mass effect, or midline shift. Owens/white matter differentiation in both cerebral hemispheres is preserved. Ventricles are proportionate to the cerebral sulci. Head CTA demonstrates no aneurysm or stenosis of the major intracranial arteries. Neck CTA demonstrates no stenosis of the major cervical arteries. The origins of the great vessels from the aortic arch are patent. No mass is noted within the visualized portions of the cervical soft tissues or lung apices. ACDF changes noted of the cervical spine at C6-7. Impression: 1. Head CTA demonstrates no aneurysm or stenosis of the major intracranial arteries, 2. Neck CTA demonstrates no stenosis of the major cervical arteries. 3. No intracranial hemorrhage on the noncontrast head CT. Electronically signed by Mike Arcos 06-29-2024 7:19 PM
--- NOTE | 2024-06-29 19:22 | XRay Report ---
Chest radiograph, one view History: Possible stroke. Left hand numbness Comparison: 10/27/2022 Findings: Single AP view of the chest performed. No focal consolidation or pleural effusion. No pneumothorax. The cardiomediastinal silhouette is within normal limits. Normal pulmonary vascularity. No evidence for lymphadenopathy. No visualized bony or soft tissue abnormality. An intrathecal stimulator device overlies the thoracic spine. Impression: Normal chest radiograph Electronically signed by Mike Arcos 06-29-2024 7:19 PM
[2024-06-29 19:27] LABS: Appearance Urine Clear (Clear); Bilirubin Urine Negative (Negative); Blood Urine Negative (Negative); Color Urine Yellow; Glucose Urine UA Negative (Negative); Ketones Urine Negative (Negative); Leukocyte Esterase Urine Negative (Negative); Nitrite Urine Negative (Negative); Protein Urine Negative (Negative); Specific Gravity Urine 1.015 (1.000-1.030); Urobilinogen Urine Negative (Negative); pH Urine 5.5 (4.5-7.5)
[2024-06-29 19:28] LABS: Albumin Globulin Ratio 1.4 (0.9-2)
[2024-06-29 19:45] LABS: Adenovirus PCR Not Detected (NotDetected); Bordetella parapertussis PCR Not Detected (NotDetected); Bordetella pertussis PCR Not Detected (NotDetected); Chlamydia pneumoniae PCR Not Detected (NotDetected); Coronavirus 229E PCR Not Detected (NotDetected); Coronavirus CoV-2 (COVID19)PCR Not Detected (NotDetected); Coronavirus HKU1 PCR Not Detected (NotDetected); Coronavirus NL63 PCR Not Detected (NotDetected); Coronavirus OC43PCR Not Detected (NotDetected); Human Metapneumovirus PCR Not Detected (NotDetected); Influenza A PCR Not Detected (NotDetected); Influenza B PCR Not Detected (NotDetected); Mycoplasma pneumoniae PCR Not Detected (NotDetected); Parainfluenza Virus 1 PCR Not Detected (NotDetected); Parainfluenza Virus 2 PCR Not Detected (NotDetected); Parainfluenza Virus 3 PCR Not Detected (NotDetected); Parainfluenza Virus 4 PCR Not Detected (NotDetected); Respiratory Syncytial VirusPCR Not Detected (NotDetected); Rhinovirus/Enterovirus PCR Not Detected (NotDetected)
[2024-06-29 19:48] LABS: T4 Free Thyroxine 1.04 ng/dl (0.61-1.60)
[2024-06-29] MEDS: POTASSIUM CHLORIDE CRTAB 20 MEQ TABCR PO STA (20:07)
--- NOTE | 2024-06-29 20:11 | History & Physical Report ---
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 See addendum. History of Present Illness Chief Complaint: Headache, paresthesias Primary Care Provider: Ishaan Pepe MD Patient is a 58-year-old female with PMH SOTOMAYOR cirrhosis, ascites, COPD, history of DVT on anticoagulation, history of gastric bypass, history esophageal stricture, GERD, HLD, hypothyroidism, fibromyalgia, thoracic and lumbosacral neuritis, history of TIA, and others listed below presented to ER for MANUEL and left sided paresthesias. Per outpatient chart review ER visit at [facility] on 06/20/2024 for vision changes that had been occurring for 1 week. She describes as bright zigzags in vision that would be followed by reported vision loss. Patient states was also having headaches last week but is unsure if they were related or coincided with the vision disturbance. Per outpatient chart review she was seen by ophthalmology on 06/21/2024 who had recommended neurology evaluation. Patient has neurology appointment scheduled on 08/04/2024. MRI/MRI brain ordered however patient has spinal stimulator and it is reported needs to be done at [facility] in [place]. MRI completed on 06/24/24. She reports the zigzag visual disturbance and loss of vision have not recurred since last week. She states she had been having "flashes of light" but denies any further visual loss. She states past couple days has not been having any noted flashes of light. States today she was feeling "off". She feels like her left eye is "lazy" and may be vision is a little more blurry than usual. She was seen today by PCP and reported that her vision was improving however today felt more confused and was complaining of left-sided headache and tingling to left hand today. Was referred to ER today with concern for stroke with her new onset of symptoms. Patient states the left-sided headache and neck discomfort have since resolved. This evening she has right posterior headache. She reports since being in ER that has also resolved. States today started with left sided chest pain that occurred at rest. She reports this is since resolved. She reports the tingling sensation to her left hand has also improved since being in ER tonight. States over a month been having trouble remembering in which she describes as "losing her train of thought" often. She states last week noticed bilateral legs seemed more weak and was easily thrown off balance by changes in height of kim. Denies fall. Denies any noted facial drooping or speech changes. Reports chronic constipation. Last BM one week ago. Reports is to be taking lactulose three times a day however has not been taking it as she reports makes her nauseated. Denies fever/chills, diaphoresis, dizziness, syncope, SOB, palpitations, cough, sore throat, choking, rhinorrhea, abdominal pain, extremity edema, rashes, dysuria, hematuria. 06/20/24 CTA Head & Neck: IMPRESSION: 1. 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 There is enhancement of the distal P2 vessels, diminished on the left. Evaluation limited by venous contamination. Recommend further evaluation with noncontrast MRI of the brain and MR angiogram of the head. 2. No significant stenosis of the cervical carotid or vertebral arteries. 06/24/24 MRA Head W/O Contrast: IMPRESSION: 1. No large vessel occlusion. 2. Diminished flow in the mid and distal right posterior cerebral artery and stenotic lesion in the proximal, mid left posterior cerebral artery. 06/24/24 MRI Brain W/O Contrast: IMPRESSION: 1. Curvilinear hyperintense lesion in the medial posterior superior right temporal lobe and a small lesion in the cortex of the right occipital lobe. These lesions are suspicious for acute or early subacute infarctions. The appearance is nonspecific however and therefore follow-up MRI is recommended. 2. Few small FLAIR hyperintense lesions in cerebral white matter. Those are nonspecific but probably due to chronic small vessel ischemia. Allergies Allergy/AdvReac Type Severity Reaction Status Date / Time adhesive Allergy Severe Blister Verified 06/29/24 19:11 Iodinated Contrast Media Allergy Severe ANAPHYLAXIS Verified 06/29/24 19:11 omeprazole Allergy Severe ANAPHYLAXIS Verified 06/29/24 19:11 peanut Allergy Intermediate LIPS SWELL Verified 06/29/24 19:11 FROM PEANUT SHELL DUST povidone-iodine Allergy Intermediate blisters Verified 06/29/24 19:11 [From Betadine] erythromycin base AdvReac Intermediate GI UPSET Verified 06/29/24 19:11 Home Medications Medication Instructions Recorded Confirmed Type buprenorphine HCl 8 mg sublingual 8 mg sublingual QID 10/10/21 06/29/24 History tablet mirtazapine 30 mg tablet 30 mg PO HS 10/10/21 06/29/24 History ondansetron HCl 8 mg tablet 8 mg PO BID PRN Nausea 10/10/21 06/29/24 History cyanocobalamin (vitamin B-12) 1,000 mcg IM .EVERY 4 WEEKS 11/09/21 06/29/24 History 1,000 mcg/mL injection solution epinephrine 0.3 mg/0.3 mL 0.3 mg IM UD PRN Allergic Reaction 11/09/21 06/29/24 History injection, auto-injector methocarbamol 750 mg tablet 750 mg PO TID PRN MUSCLE SPASMS 06/09/22 06/29/24 History albuterol sulfate 90 mcg/actuation 2 puff inhalation Q4 PRN Shortness 08/12/22 06/29/24 History aerosol inhaler (ProAir HFA) Of Breath Or Wheezing calcium citrate 500 mg PO BID 08/12/22 06/29/24 History lactobacillus combination no.4 3 3 mmu cells PO DAILY 08/12/22 06/29/24 History billion cell capsule (Probiotic) lactulose 10 gram/15 mL oral 45 ml PO TID PRN BOWEL MOVEMENT 08/12/22 06/29/24 History solution sennosides 8.6 mg tablet (senna) 8.6 mg PO BID 08/12/22 06/29/24 History pantoprazole 40 mg tablet,delayed 40 mg PO BID #60 tabs 08/14/22 06/29/24 Rx release apixaban 2.5 mg tablet (Eliquis) 2.5 mg PO BID 06/29/24 06/29/24 History cholecalciferol (vitamin D3) 25 3,000 unit PO QAM 06/29/24 06/29/24 History mcg (1,000 unit) tablet furosemide 40 mg tablet (Lasix) 40 mg PO QAM PRN Fluid Retention 06/29/24 06/29/24 History levothyroxine 112 mcg tablet 112 mcg PO QAM 06/29/24 06/29/24 History (Synthroid) Past Med/Surg History Problem List (Updated 06/29/24 @ 23:35 by Sim Barnes M.D.) Stroke-like symptoms (Acute) Stroke-like symptoms Infection with multi drug resistant Enterobacter cloacae (Acute) UTI (urinary tract infection) due to Enterococcus (Acute) Chronic back pain Cellulitis Multiple drug resistant organism (MDRO) culture positive Personal history of DVT (deep vein thrombosis) UTI (urinary tract infection) Urinary tract infection due to Enterococcus Acute renal failure (Acute) Fall (Acute) Chronic pain (Acute) Fall KHANG (acute kidney injury) 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 placed on Plavix & ASA Bronchitis (Acute) Cervical radiculopathy (Chronic) COPD (chronic obstructive pulmonary disease) (Chronic) Status post gastric bypass for obesity (Chronic) Status post cervical discectomy (Acute) Mood disorder (Chronic) Post laminectomy syndrome (Chronic) Arm weakness (Acute) Encounter for pre-operative examination COVID-19 (Acute) Chest pain (Acute) Shortness of breath (Acute) Chest discomfort Epigastric discomfort Tibial vein thrombosis Dyspepsia Hypokalemia (Acute) Edema (Acute) Diabetes mellitus, type II (Chronic) pt denies Hyperlipidemia (Chronic) Peripheral neuropathy (Chronic) BILATERAL FEET Depression (Chronic) Anxiety (Chronic) Hypothyroidism (Chronic) Degenerative disc disease (Chronic) S/P insertion of spinal cord stimulator (Chronic) [facility]. Turns it off for surgery - has remote. Hx of gastric bypass (Chronic) [place] en [place] Fibromyalgia (Chronic) Medical History Cor pulmonale w/ PE/EVT 04/2022 DVT (deep venous thrombosis) 04/2022 femoral vein, right lower extremity Cirrhosis Rotator cuff injury from fall 04/2022 Malnourished Fractured pelvis 04/2022 from a fall, currently using a walker Hx pulmonary embolism 04/2022- hospitalized [facility], currently taking eliquis COPD (chronic obstructive pulmonary disease) History of COVID-19 06/2020- does not remember what her symptoms were- NO HOSPITALIZATION 05/2022 - hospitalized [facility] Weight loss, unintentional Dysphagia Bronchitis hx Sinus infection hx Falls frequently d/t drop foot Osteoarthritis Peptic ulcer disease HX GERD (gastroesophageal reflux disease) History of esophageal stricture Temporomandibular joint disorder MILD. CLICKS BUT NEVER LOCKED. Foot drop RIGHT Migraine HX Surgical History Hx of colonoscopy History of esophagogastroduodenoscopy (EGD) H/O cervical discectomy with a cage (done at [facility]) Full ROM. Status post surgery right leg nerve decompression for foot drop S/P ANSHU-BSO Hx of lumpectomy (-) RIGHT BREAST History of breast biopsy MULITPLE ON BILATERAL BREASTS History of laminectomy LUMBAR AREA X2 History of cholecystectomy History of esophageal dilatation Family History Family/Other Family hx of colon cancer Father Family history of diabetes mellitus Grandmother (Maternal) Family history of diabetes mellitus Other No family history of adverse response to anesthesia Social History (Updated 06/29/24 @ 21:40 by Kelli Mary PA-C) Smoking Status: Current every day smoker Tobacco Type: Cigarettes Cigarettes Per Day: pt states less than 1/2 PPD; Second Hand Exposure: No; Do You Dip or Chew Tobacco: No; Hx Alcohol Use: No Hx Substance Use: No Preferred Language: Bulgarian Communication Ability: Effective Resident Care Associate Required: No Beliefs That Will Affect Care: None marital status: Current Living Situation: Spouse and Family Current Living Situation Comment: Lives with and children at home Other Information That Helps Us Care for You: No Feels Safe at Home: Yes Safety Concerns: Feels Safe At This Time Assistive Devices: Denture - Upper, Denture - Lower and Glasses Review of Systems Review of Systems: All systems reviewed & are unremarkable except as noted in HPI & below Physical Exam Physical Exam: General: no distress, chronic ill appearing Head: normocephalic, atraumatic Eyes: PERRL, EOM's intact, conjunctiva non-injected, anicteric ENT: normal inspection external ears, nose, mucous membranes moist Neck: supple, trachea midline Lungs: clear, no respiratory distress, no wheezing/rhonchi/rales CV: RRR, no murmur, no pretibial edema Abd: normal BS, soft, non-tender Ext: no cyanosis, no calf tenderness Neuro: A&O x 3, no focal deficits noted, normal affect, visual garcía intact. PERRL, EOMs intact. No nystagmus, facial sensation is intact and symmetric, face is strong and symmetric, hearing grossly intact, soft palate elevates symmetrically, no dysarthria, shoulder shrug intact, tongue is midline, normal movement, no fasciculations, muscle tone normal. Strength 5/5 throughout. Skin: warm, dry Results & Data Results & Data Vital Signs (Past 12 Hours) Vital Signs Temp Pulse Pulse Resp BP BP Pulse Ox 06/29/24 19:05 79 06/29/24 18:39 73 18 175/100 H 96 06/29/24 18:32 98 06/29/24 17:40 36.7 C 85 16 158/92 H 98 O2 Del Method 06/29/24 19:05 06/29/24 18:39 Room Air 06/29/24 18:32 Room Air 06/29/24 17:40 Room Air Laboratory Results Short CBC 06/29/24 Range/Units 18:24 WBC 5.47 (4.8-10.8) K/ul Hgb 10.8 L (12.0-16.0) g/dl Hct 35.8 L (37.0-47.0) % Plt Count 202 (130-400) K/uL BMP 06/29/24 18:24 Sodium 138 Potassium 3.7 Chloride 105 Carbon Dioxide 29 BUN 11 Creatinine 0.83 Glucose 87 Calcium 9.2 Liver Function 06/29/24 Range/Units 18:24 Total Bilirubin 0.5 (0.2-1.0) mg/dl AST 24 (13-39) U/L ALT 13 (7-52) U/L Alkaline Phosphatase 100 (34-104) U/L Albumin 4.1 (3.4-5.0) gm/dl Urine 06/29/24 Range/Units 18:25 Urine Color Yellow Urine Appearance Clear (Clear) Urine pH 5.5 (4.5-7.5) Ur Specific [place] 1.015 (1.000-1.030) Urine Protein Negative (Negative) Urine Glucose (UA) Negative (Negative) Diagnostic Findings Chest X-Ray 06/29/24 18:11 Chest radiograph, one view History: Possible stroke. Left hand numbness Comparison: 10/27/2022 Findings: Single AP view of the chest performed. No focal consolidation or pleural effusion. No pneumothorax. The cardiomediastinal silhouette is within normal limits. Normal pulmonary vascularity. No evidence for lymphadenopathy. No visualized bony or soft tissue abnormality. An intrathecal stimulator device overlies the thoracic spine. Impression: Normal chest radiograph Electronically signed by Mike Arcos 06-29-2024 7:[address] 06/29/24 18:[address] without contrast CT angiogram of the neck CT angiogram of the brain with contrast Provided History: Neuro deficit Comparison: None Technique: HEAD CT: Using multidetector thin collimation helical acquisition technique, axial, coronal and sagittal CT images from the skull base to the vertex were obtained without intravenous contrast. HEAD and NECK CTA: During rapid bolus intravenous injection of nonionic contrast material, axial images were obtained using thin collimation multidetector helical technique from the base of the neck through the of vertex of the head. This CT angiogram data was reconstructed at thin intervals with mild overlap. 3D reconstructions were obtained. The axial source images, multiplanar reformations, 3D reconstructions in both maximum intensity projection display and volume rendered models were reviewed. Dose reduction techniques were achieved by using automatic exposure control and/or adjustment of mA and/or kV according to patient size and/or use of iterative reconstruction technique. Findings: Head CT: There is no intracranial hemorrhage, mass effect, or midline shift. Owens/white matter differentiation in both cerebral hemispheres is preserved. Ventricles are proportionate to the cerebral sulci. Head CTA demonstrates no aneurysm or stenosis of the major intracranial arteries. Neck CTA demonstrates no stenosis of the major cervical arteries. The origins of the great vessels from the aortic arch are patent. No mass is noted within the visualized portions of the cervical soft tissues or lung apices. ACDF changes noted of the cervical spine at C6-7. Impression: 1. Head CTA demonstrates no aneurysm or stenosis of the major intracranial arteries, 2. Neck CTA demonstrates no stenosis of the major cervical arteries. 3. No intracranial hemorrhage on the noncontrast head CT. Electronically signed by Mike Arcos 06-29-2024 7:19 PM Head CTA 06/29/24 18:[address] without contrast CT angiogram of the neck CT angiogram of the brain with contrast Provided History: Neuro deficit Comparison: None Technique: HEAD CT: Using multidetector thin collimation helical acquisition technique, axial, coronal and sagittal CT images from the skull base to the vertex were obtained without intravenous contrast. HEAD and NECK CTA: During rapid bolus intravenous injection of nonionic contrast material, axial images were obtained using thin collimation multidetector helical technique from the base of the neck through the of vertex of the head. This CT angiogram data was reconstructed at thin intervals with mild overlap. 3D reconstructions were obtained. The axial source images, multiplanar reformations, 3D reconstructions in both maximum intensity projection display and volume rendered models were reviewed. Dose reduction techniques were achieved by using automatic exposure control and/or adjustment of mA and/or kV according to patient size and/or use of iterative reconstruction technique. Findings: Head CT: There is no intracranial hemorrhage, mass effect, or midline shift. Owens/white matter differentiation in both cerebral hemispheres is preserved. Ventricles are proportionate to the cerebral sulci. Head CTA demonstrates no aneurysm or stenosis of the major intracranial arteries. Neck CTA demonstrates no stenosis of the major cervical arteries. The origins of the great vessels from the aortic arch are patent. No mass is noted within the visualized portions of the cervical soft tissues or lung apices. ACDF changes noted of the cervical spine at C6-7. Impression: 1. Head CTA demonstrates no aneurysm or stenosis of the major intracranial arteries, 2. Neck CTA demonstrates no stenosis of the major cervical arteries. 3. No intracranial hemorrhage on the noncontrast head CT. Electronically signed by Mike Arcos 06-29-2024 7:19 PM Neck CTA 06/29/24 18:[address] without contrast CT angiogram of the neck CT angiogram of the brain with contrast Provided History: Neuro deficit Comparison: None Technique: HEAD CT: Using multidetector thin collimation helical acquisition technique, axial, coronal and sagittal CT images from the skull base to the vertex were obtained without intravenous contrast. HEAD and NECK CTA: During rapid bolus intravenous injection of nonionic contrast material, axial images were obtained using thin collimation multidetector helical technique from the base of the neck through the of vertex of the head. This CT angiogram data was reconstructed at thin intervals with mild overlap. 3D reconstructions were obtained. The axial source images, multiplanar reformations, 3D reconstructions in both maximum intensity projection display and volume rendered models were reviewed. Dose reduction techniques were achieved by using automatic exposure control and/or adjustment of mA and/or kV according to patient size and/or use of iterative reconstruction technique. Findings: Head CT: There is no intracranial hemorrhage, mass effect, or midline shift. Owens/white matter differentiation in both cerebral hemispheres is preserved. Ventricles are proportionate to the cerebral sulci. Head CTA demonstrates no aneurysm or stenosis of the major intracranial arteries. Neck CTA demonstrates no stenosis of the major cervical arteries. The origins of the great vessels from the aortic arch are patent. No mass is noted within the visualized portions of the cervical soft tissues or lung apices. ACDF changes noted of the cervical spine at C6-7. Impression: 1. Head CTA demonstrates no aneurysm or stenosis of the major intracranial arteries, 2. Neck CTA demonstrates no stenosis of the major cervical arteries. 3. No intracranial hemorrhage on the noncontrast head CT. Electronically signed by Mike Arcos 06-29-2024 7:19 PM Supervising Physician Co-Signing Physician Notes IM ATTENDING : Patient seen and examined. History obtained from patient and records. Concur with salient points upon review of preceding documentation by Ms. Kelli Mary PA-C. In addition, FOBT done at there was negative. I take responsibility for plan of care below. FINAL ASSESSMENT AND PLAN as follows : Recurrent TIA Subacute CVA on outpatient MRI Hypertension, elevated secondary to above PSVT as per records History of PVD NAFLD cirrhosis, compensated hx COPD, not in acute exacerbation hypothyroidism, TSH noted to be low DM 2, diet controlled, well-controlled as of recent hemoglobin A1c of 5.9 last February 2024 Hyperlipidemia, statin noncompliance New onset anemia, stable hemoglobin following ER visit last month. Possibly fro m transient tongue bleeding episode. FOBT done at the ER negative. history of gastric bypass chronic back pain status post surgery/postlaminectomy syndrome status post spinal cord stimulator placement fibromyalgia/chronic pain on Suboxone history subacute PE/LE DVT on Eliquis ongoing tobacco abuse OBS Admit to medical telemetry Neurochecks Aspirin and statin Rx for secondary stroke prevention Permissive hypertension for now. Lisinopril if with persistent BP elevation TTE re: TIA Neurology consult Re: Recurrent TIA ISS BG goal 1 10-140, carb count coverage Recheck TSH next month Nicotine patch as needed DVT prophylaxis. Eliquis Full code I spent a total of 30 minutes coordinating, documenting, and providing care for this patientexcludingtime spent by another provider/QHP. Text document was generated using [employer] voice recognition software. It may contain grammatical or spelling errors. Kindly contact undersigned for clarification of any documentation item in question.
[2024-06-29] MEDS: buprenorphine HCL 8 MG SUBL SL SCH (21:43)
[2024-06-29] MEDS ORDERED: PROMETHAZINE 6.25 MG/50.25 ML BAG IV PRN (22:15)
[2024-06-29] MEDS ORDERED: PHARMACIST DISCHARGE MED REC CONSULT PRN (22:15)
[2024-06-29] MEDS ORDERED: hydrOXYzine HCl 10 MG TAB PO PRN (22:15)
[2024-06-29] MEDS: ATORVASTATIN 40 MG TAB PO SCH (23:03)
[2024-06-29] MEDS: ASPIRIN 81 MG ECTAB PO STA (23:03)
[2024-06-29] MEDS: APIXABAN 2.5 MG TAB PO SCH (23:04)
[2024-06-29] MEDS: MIRTAZAPINE TAB 15 MG TAB PO SCH (23:04)
[2024-06-29] MEDS: LACTULOSE SYRUP 30 GM/45 ML UDP PO SCH (23:04)
[2024-06-30 01:34] VITALS: RESP 18
[2024-06-30] MEDS ORDERED: GLUCAGON FOR INJ 1 MG VIAL SQ PRN (04:15)
[2024-06-30] MEDS ORDERED: GLUCOSE 10 TAB/TUBE PO PRN (04:15)
[2024-06-30] MEDS ORDERED: DEXTROSE 50% 50 ML SYRINGE IV PRN (04:15)
[2024-06-30] MEDS ORDERED: GLUCOSE 40% GEL 15 GM TUBE PO PRN (04:15)
[2024-06-30] MEDS ORDERED: CARBOHYDRATES FOR HYPOGLYCEMIA PO PRN (04:15)
[2024-06-30] MEDS: LEVOTHYROXINE SODIUM 112 MCG TABLET PO SCH (05:43)
[2024-06-30 06:34] LABS: Hematocrit (blood only) 35.6 % (37.0-47.0); Hemoglobin 10.9 g/dl (12.0-16.0); Immature Granulocytes # (auto) 0.01 K/uL (0.01-0.20); Immature Granulocytes % (auto) 0.2 %; Lymphocytes # (auto) 0.97 K/uL (1.20-3.40); Lymphocytes % (auto) 21.6 %; Mean Corpuscular Hemoglobin 24.4 pg (25.0-34.0); Mean Corpuscular Hgb Conc 30.6 g/dL (32.0-36.0); Mean Corpuscular Volume 79.8 fL (80.0-100.0); Mean Platelet Volume 12.5 fL (9.4-12.4); Monocytes # (auto) 0.07 K/uL (0.11-0.59); Monocytes % (auto) 1.6 %; Neutrophils # (auto) 3.45 K/uL (1.40-6.50); Neutrophils % (auto) 76.6 %; Platelet Count 172 K/uL (130-400); RDW Coefficient of Variation 15.2 % (11.5-14.5); RDW Standard Deviation 44.2 fL (36.4-46.3); Red Blood Count 4.46 M/uL (4.20-5.40)
[2024-06-30 06:42] LABS: BUN Creatinine Ratio 17.1 (10-20); Calcium 9.2 mg/dl (8.6-10.3); Chol HDL Ratio 3.6 (0-5); Creatinine Clr Calc Pharmacy 82.2 ml/min
--- OUTSIDE RECORDS SUMMARY | 2024-06-30 07:04 | External Medical Summary | Summary of Care ---
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 Name Role Phone Ishaan Pepe MD Primary Care Provider + Reason for Visit * Reason Onset Date Comments Medication Pre-auth 06/22/2024 Reclast Encounter Details Date Type Department Care Team ([facility] st Contact Info) Description 06/22/2024 Telephone Hematology/Oncology Treatment, [place] [address] [place] [address] Omega Galvin PA-C [facility] [place] [address] Medication Pre-auth (Reclast) Allergies Active Allergy Reactions Criticality Noted Date Comments Adhesive Tape Rash 01/05/2009 Iodinated Contrast Media Tachypnea 07/02/2022 Povidone-Iodine 10/05/2018 Other reaction(s): . Omeprazole Anaphylaxis High 01/03/2010 Tongue itchy, ear throbbing documented as of this encounter (statuses as of 06/24/2024) Medications Up4 Probiotics Womens Oral Capsule Take by mouth. Activ e Buprenorphine HCl 8 MG Sublingual Tablet Sublingual (Subutex) Place 1 Tablet under the tongue 4 times a day. 90 Tablet 06/03/19 23 Active Estradiol 0.1 MG/GM Vaginal Cream (Estrace) Administer 0.2 g into the vagina once a day on Thursday, Thursday, and Thursday only. Apply periurethrally as directed. 42.5 g 1 07/22/19 24 Active Pantoprazole Sodium 40 MG Oral Tablet Delayed Release (Protonix) Take 1 Tablet by mouth in the morning and 1 Tablet before bedtime. 180 Tablet 3 5 6:21 PM EST 07/28/19 24 Active EPINEPHrine 0.3 MG/0.3ML Injection Solution Auto-injector (Autoinjector)Mralene cations:Bee sting allergy For a severe reaction: Inject in outer thigh following instructions on package and go to the Emergency room. 6 Each 1 4 5:20 PM EDT 09/02/19 24 Active Lactulose 10 GM/15ML Oral Solution (Constulose)Indica tions:Hepatic encephalopathy (HCC) Take 45 mL by mouth in the morning and 45 mL at noon and 45 mL before bedtime. 946 mL 1 11/06/19 24 Active Additional Information Patient taking differently:30 g OralTID PRN, Reported on 06/22/2024 Furosemide 40 MG Oral Tablet (Lasix)Indications :Liver cirrhosis secondary to nonalcoholic steatohepatitis (SOTOMAYOR) (HCC),Leg edema, right Take 1 pill in the morning daily as needed for edema 11/10/19 24 Active Ondansetron HCl 8 MG Oral Tablet (Zofran)Indication s:Nausea TAKE ONE TABLET BY MOUTH EVERY 8 HOURS NEEDED FOR NAUSEA. 180 Tablet 2 4 8:20 AM EST 12/28/19 24 Active Mirtazapine 30 MG Oral Tablet (Remeron) TAKE ONE TABLET BY MOUTH AT BEDTIME 90 Tablet 2 5 11:27 AM EDT 12/28/19 24 025 Active Varenicline Tartrate 1 MG Oral Tablet (Chantix)Indicatio ns:Tobacco use Take 1 Tablet by mouth in the morning and 1 Tablet before bedtime. 60 Tablet 03/08/20 24 Active Vitamin A 3 MG (11068 UT) Oral Capsule (Aquasol-A) Take 1 Capsule by mouth in the morning. 03/18/20 24 Active ProAir HFA 108 (90 Base) MCG/ACT Inhalation Aerosol SolutionIndication s:Chest congestion,Acute cough Inhale 2 Puffs by mouth every 4 hours as needed for Wheezing. 18 g 11 04/04/19 25 Active Synthroid 112 MCG Oral TabletIndications: Acquired hypothyroidism Take 1 Tablet by mouth in the morning. (at least 30 min prior to breakfast or other meds). 90 Tablet 3 04/21/19 25 Active Apixaban 2.5 MG Oral Tablet (Eliquis) Take 1 Tablet by mouth in the morning and 1 Tablet before bedtime. 60 Tablet 1 05/19/19 25 Active LORazepam 1 MG Oral Tablet (Ativan)Indication s:Anxiety Take one hour prior to MRI 1 Tablet 06/23/19 25 Active documented as of this encounter (statuses as of 06/24/2024) Active Problems Problem Noted Date Diagnosed Date Mild mitral regurgitation 09/01/2023 History of pulmonary embolism 09/01/2023 Type 2 diabetes mellitus without complication Hyperparathyroidism 09/01/2023 COPD, group D, by GOLD 2017 classification 05/11 Overview: Per COPD GOLD Classification Paroxysmal SVT (supraventricular tachycardia) Iron deficiency anemia secon ravin to inadequate dietary iron intake 11/17/2022 Other ascites 09/22/2022 Chronic deep vein thrombosis (DVT) of right héctor anayeli vein 08/20/2022 High risk for fracture due to osteoporosis by DE XA scan 08/20/2022 Recurrent infections 07/30/2022 Overview (07/30/2022): Source(s) of Recurrent Infections: UTI and C Diff Diarrhea "RED FLAG" Infectious Symptoms: o "Traditional" UTI sx: Pain with urination, urine frequency, or urine urgency o Foul smelling urine o Abnormal appearing urine: dark, cloudy, sediment, or pus o Watery, foul smelling diarrhea o Changes in behavior from baseline: more sleepy, acting or speaking abnormal, increased depression symptoms, or becoming more forgetful o Changes in level of function from baseline: not able to get out of bed, having to use assistive devices that aren't typically used, not able to feed or dress one's self, or falls/near falls Self - Management Plan o Increase oral hydration o Obtain urine sample in the home and take to the designated lab o Obtain stool sample in the home and take to the designated lab Exacerbation Plan o CBC o CMP o Stool for C Diff o Urine with Reflex to Culture Additional Comments: o Has grown multiple bacteria in urine - E Coli, Klebsiella, etc that is susceptible to most antibiotics (consider Cefdinir) o If diarrhea begins, consider empiric PO Vanco as C Diff Cx is processing Other osteoporosis without current pathological fracture 06/04/2022 Constipation 04/14/2022 History of depression 01/20/2022 Intestinal postoperative nonabsorption 2 Gastro-esophageal reflux disease without esophag itis 04/10/2021 Assessment & Plan (06/02/2022 12:25 PM EST): Continue pantoprazole 40 mg twice daily Opioid dependence, uncomplicated 04/27/2020 Overview (07/30/2022): Managed by [facility] for opoid addiction - takes Subutex (Buprenorphine) Assessment & Plan (06/02/2022 12:26 PM EST): Chronic Subutex Hx of transient ischemic attack (TIA) 04/03/2020 Liver cirrhosis secondary to nonalcoholic steatohepatitis (SOTOMAYOR) 02/08/2020 Overview (07/30/2022): "RED FLAG" ESLD Symptoms: o Altered Mental Status ("I don't act like myself" ,"I get very sleepy and forgetful", "I feel like I can't control my mood) o Increasing Abdominal Girth ("My belly gets so big I can't wear a belt", "I look like I'm 9 months") o Abdominal Pain ("My belly hurts all over" o Edema ("My legs and feet get hard and puffy and I can't put shoes on") Known ELSD Complications: o Ascites requiring paracentesis o Hepatic Encephalopathy o Other: chronic anemia Medication Regimen: o Beta Jeny Therapy: No beta-jeny secondary to hypotension o Diuretic therapy: Lasix Aldactone o Bleeding therapy/prophylaxis: Famotidine o Encephalopathy Treatment: Lactulose Additional Comments o If confused - give 15-30ml Lactulose immediately o Consider setting up for routine anticipatory paracentesis o Pt has responded to 80mg PO BID of Lasix but may need 80mg IV Lasix in the clinic may benefit if fluid overload and awaiting paracentesis o Per record review, not a candidate for translant Assessment & Plan (06/02/2022 12:21 PM EST): Following with Kishore FLORES Has not been taking lactulose due to several soft stools approximately 6-8 times per day. She did restart yesterday. She plans on taking it today. Denies any confusion. -encouraged taking lactulose as prescribed Idiopathic peripheral neuropathy 05/17/2019 Migraine variant 04/18/2019 Peroneal palsy, right 09/21/2018 Stricture of esophagus 07/07/2018 S/P gastric bypass 05/06/2018 Severe tobacco use disorder 10/28/2017 Mixed hyperlipidemia 12/20/2012 Fibromyalgia 01/05/2009 Assessment & Plan (06/02/2022 12:25 PM EST): Pain now controlled on Subutex Postlaminectomy syndrome, lumbar 01/05/2009 Thoracic and lumbosacral neuritis 01/05/2009 Acquired hypothyroidism Assessment & Plan (06/02/2022 12:21 PM EST): Continue synthroid documented as of this encounter (statuses as of 06/24/2024) Resolved Problems Problem Noted Date Diagnosed Date Resolved Date Hyperparathyroidism 09/01/2023 09/01/19 24 Hyperparathyroidism 09/01/2023 09/01/19 24 Physical deconditioning 07/07/2022 05/0 05/2022 Clostridium difficile enteritis 07/07/2022 07/07/2022 COPD, group C, by GOLD 2017 classification 07/07/2022 05/14/2023 Overview (07/30/2022): "RED FLAG" COPD symptoms: o Increased dyspnea on exertion ("I can't walk to the kitchen or up the stairs without coughing and wheezing", "My chest feels tight any time I move") o Increased shortness of breath at rest ("I struggle to breathe even when watching TV", "I have to wear or turn up my oxygen just when I'm sitting on the couch") o Cough ("I get a different kind of cough than what I' have every day") o Change in mucous ("My normal mucous is clear but this is yellow and tastes terrible") Medication Regimen o All Classes - SENA o Class B, C, D - LAMA o Class D, Asthma/COPD Overlap - Inhaled Glucocorticoid-LABA Combination Inhaler Self-Management plan o Prednisone 40mg daily for 5 days Rx o Oral Antibiotic Rx (see medication list) o Other/Additional Comments: USe 2 puffs of Proair HFA QID when sick Exacerbation plan o Solumedrol 40mg IM/IV o Chest Xray Additional Comments o Seems to have relationship with allergies - OTC Fexofenadine and consider Singulair o Bath + shower regularly if exposed to fur, pollen, etc Lactic acidosis 07/03/2022 07/25/2022 Coronavirus infection 06/12/20222022 Sacral wound 06/12/2022 10/10/2022 Acute deep vein thrombosis ( DVT) of femoral vein of right lower extremity 05/13/2022 10/10/2022 Assessment & Plan (06/02/2022 12:16 PM EST): Continue eliquis Subacute pulmonary embolism 05/13/2022 04/06/2023 Overview (06/02/2022): Admission 05/13-05/16/22 for acute PE Assessment & Plan (06/02/2022 12:16 PM EST): Denies any chest pain. Breathing baseline. -continue Eliquis KHANG (acute kidney injury) 05/13/2022 Acute hypokalemia 04/14/2022 07/25/2022 Abdominal ascites 04/14/2022 09/01/2023 Overview (06/02/2022): Last paracentesis on 04/15/2022-3.5 L drained Assessment & Plan (06/02/2022 12:24 PM EST): Continue Lasix and spironolactone. UTI (urinary tract infection) 04/14/2022 07/30/2022 Paroxysmal SVT (supraventricular tachycardia) 11/14/1907/30/2022 Preop examination 08/08/2020 10/10/2020 Well adult exam 08/08/2020 12/06/2021 Overview (10/22/2021): 10/18 [facility] stress echo normal EF, no CAD, Gr I [place] Dys. CT chest no PE. 2018 colon 2 mm polyp. Unspecified mood (affective) disorder 04/17/2020 04/17/2020 Severe protein-calorie malnutrition 04/03/2020 04/06/2023 TIA (transient ischemic attack) 02/10/2020 04/03/2020 Protein-calorie malnutrition 02/10/2020 04/17/2020 Impaired fasting glucose 01/02/2020 Stroke-like symptoms 05/17/2019 020 COPD exacerbation 03/07/2019 07/25/2022 Overview: Per COPD GOLD Classification Assessment & Plan (06/02/2022 12:19 PM EST): COPD "RED FLAG" COPD symptoms: o Increased dyspnea on exertion ("I can't walk to the kitchen or up the stairs without coughing and wheezing", "My chest feels tight any time I move") Medication Regimen o Class D, Asthma/COPD Overlap - Inhaled Glucocorticoid-LABA Combination Inhaler , spiriva Exacerbation Mgt: o o Rescue Kit in place in Medication List: Yes. o Used rescue kit in the past month: No o Required IM or IV steroids (Solumedrol) since last visit: No dx'ed with bronchitis about 1 month ago, getting better. No use of steroids or ABX COPD, group A, by GOLD 2017 classification 09/06/2018 03/10/2019 Overview: Per COPD GOLD Classification Type 2 diabetes mellitus wit h complication, with long-term current use of insulin 07/01/2018 Morbid obesity due to excess calories 10/05/2017 11/10/2018 Asymptomatic bilateral carot id artery stenosis 11/28/2016 04/27/2020 Peptic ulcer without hemorrh age or perforation but with obstruction 10/06/2016 020 TMJ (sprain of temporomandibular joint) 07/03/2016 06/17/2018 Chronic hyperventilation syndrome 05/04/2015 09/01/2023 Nocturnal hypoxemia 06/09/2013 08/10/19 22 Overview (06/22/2013): 2 LPM Noct ox on 2 LPM -- <89% 16 seconds, low 83%, mean 96%, MARYAM 0.1 AHP COPD, severity to be determined 06/18/2011 09/08/2018 Overview: Per COPD GOLD Classification Hyperlipidemia with target LDL less than 100 2 07/12/2013 Overview (07/30/2015): ICD-10 update of inactive term BMI 36.0-36.9,adult 09/02/2010 06/18/19 19 Recurrent major depressive d isorder, in partial remission 01/03/2010 01/20/2022 Tobacco use disorder 02/15/2009 013 MEDICATION USE AGREEMENT 01/23/200905/2022 Postartificial menopausal syndrome 05/18/2008 12/06/2021 Type 2 diabetes mellitus wit h hemoglobin A1c goal of less than 7.0% 01/02/2020 Overview (07/24/2015): ICD-10 update of inactive term documented as of this encounter (statuses as of 06/24/2024) Immunizations Name Administration Dates Next Due DT - Diptheria/Tetanus (PEDS) 11/14/1985 ,06/30/1972,05/25/1968,04/20,02/26/1968 Hepatitis B, 20+ yrs 02/06/2014,09/06/2013,08/09 MMR-LUKE - Measles/Mumps/Rubella/Varicella Vaccine 10/13/1972 OPV - Polio Virus Vaccine (Oral) 973,05/25/1968,04/20/1968,02/25 Pneumococcal Conjugate Vacci ne, 20-valent ([id number]) 12/06/2021 Pneumococcal Polysaccharide PPV23 (Pneumovax) 02/15/2009 Rubella Vaccine 08/03/1968 Seasonal Influenza Virus Vac cine, Unspecified Formulation 04/10/2021,12/30/2019,04/18/2019 Seasonal Influenza, PF, 6 M & above, IM , (FluLaval or Fluzone) 02/11/2023,01/03/2022,04/10/2021,12/29,04/18/2019 Seasonal Influenza, Trivalen t, (IIV3), PF, (Fluzone) 03/18/2024 TD - Tetanus/Diptheria (ADULT) 01/16/1997 TDAP (age 10 and older)(Boostrix) 02/27/2022 TDAP, Age 7 and older, IM (Adacel) 05/01/2010 Zoster Vaccine Recombinant (Shingrix) 03/08/2021 ,11/08/2020 documented as of this encounter Social History Tobacco Use Types Packs/Day Years Used Date Smoking Tobacco: Every Day Cigarettes 1 35 Smokeless Tobacco: Never Comments:04/04/24-Smoking 5-6 cigarettes/day Alcohol Use Standard Drinks/Week Comments No 0 (1 standard drink = 0.6 oz pur e alcohol) PHQ-2 Answer Date Recorded PHQ Adult Total Score 0 03/10/2023 Hunger Vital Sign Answer Date Recorded Within the past 12 months, y ou worried that your food would run out before you got the money to buy more. Never true 11/02/19 23 Within the past 12 months, t he food you bought just didn't last and you didn't have money to get more. Never true 11/01/2022 Childcare Answer Date Recorded Do you feel overwhelmed with taking care of a child, family member or friend? No 11/01/2022 Does your family need help f inding childcare? (Household - for ages 0-17 years) Not on file 11/01/2022 Clothing Answer Date Recorded Have you been unable to get clothing when it was really needed? No 11/01/2022 Is your family able to get c lothes or diapers when needed? (Household - for ages 0-17 years) Not on file 11/01/2022 Personal Safety Answer Date Recorded Do you feel unsafe or have concerns for your saf ety? No 11/01/2022 Do you have concerns for you r family's safety? (Household - for ages 0-17 years) Not on file 11/01/2022 Utilities Answer Date Recorded Do you have trouble paying y our heating, water, or electric bill? No 11/01/2022 Is your family able to pay t he heat, water, or electric bill? (Household - for ages 0-17 years) Not on file 11/01/2022 Does your family have access to good internet? (Household - for ages 0-17 years) Not on file 11/01/2022 Employment Status Answer Date Recorded Are you unemployed or without regular income? No 11/01/2022 Does the household have a re gular source of income? (Household - for ages 0-17 years) Not on file 11/01/2022 Social Connections Answer Date Recorded How often do you feel lonely or isolated from th ose around you? Never 11/01/2022 Financial Resource Strain Answer Date R ecorded Do you have any trouble payi ng for your medications, or do you think you might in the future? No 11/01/2022 Does your family have troubl e paying for medicine? (Household - for ages 0-17 years) Not on file 11/01/2022 Transportation Needs Answer Date Record ed READ ONLY Do you have troubl e getting a ride to medical visits or work? Never True 11/01/2022 Does your family have a hard time getting a ride to doctors visits? (Household - for ages 0-17 years) Not on file 11/01/2022 Has lack of transportation k ept you from medical appointments, meetings, work, or from getting things needed for daily living? Check all that apply. (Adult - for ages 18 years and over) Not on file 11/01/2022 Do you (or your family) have trouble finding or paying for a ride (transportation)? (Household - for ages 0-17 years) Not on file 11/01/2022 Housing Stability Answer Date Recorded Do you currently live in a s helter or have no steady place to sleep at night? No 11/01/2022 READ ONLY Do you think you a re at risk of becoming homeless? No 11/01/2022 Does your family worry about paying for your home or becoming homeless? (Household - for ages 0-17 years) Not on file 0 11/01/2022 Are you homeless or worried that you might be in the future? (Adult - for ages 18 years and over) Not on file Are you (or your family) jeffery eless or worried that you might be in the future? (Household - for ages 0-17 years) Not on file Food Insecurity Answer Date Recorded Do you need food for this week? No 11/01/2022 Are you able to get enough f ood for your family? (Household - for ages 0-17 years) Not on file 11/01/2022 Does your family need food t his week? (Household - for ages 0-17 years) Not on file 11/01/2022 Do you always have enough fo od for your family? 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 Answer Date of Assessment Author No 06/12/2022 7:56 PM Sushil Naidu RN * Are you blind or do you have serious difficulty seeing, even when wearing glasses? Answer Date of Assessment Author No 06/12/2022 7:56 PM MARGOTT Sushil Arcos RN * Do you have serious difficulty walking or climbing stairs? (5 years old or older) Answer Date of Assessment Author Yes 07/04/2022 12:31 PM MARGOTT Lucy Mcguire RN * Do you have difficulty dressing or bathing? (5 years old or older) Answer Date of Assessment Author Yes 06/12/2022 7:56 PM Sushil Naidu RN * Because of a physical, mental, or emotional condition, do you have difficulty doing errands alone such as visiting a doctor’s office or shopping? (15 years old or older) Answer Date of Assessment Author No 06/12/2022 7:56 PM EDT Sushil Arcos RN documented as of this encounter Mental Status * Because of a physical, mental, or emotional condition, do you have serious difficulty concentrating, remembering, or making decisions? (5 years old or older) Answer Entry Date Author No 06/12/2022 7:56 PM EDT Sushil Arcos RN documented in this encounter Miscellaneous Notes * Telephone Encounter - Omega Galvin PA-C - 06/24/2024 8:02 AM EDT I have message out to patient. Can delay 6 weeks to ensure she is taking her supplement. * Telephone Encounter - Kinga Rodriguez RN - 06/23/2024 1:23 PM EDT PFC review complete. Vit D drawn 06/21/24- . Omega: is it ok to proceed with reclast? * Telephone Encounter - Lizzeth Negrete PHARM Tech - 06/22/2024 3:55 PM EDT Rheumatology Referral: Infusions or Clinic Administered Medications (CAM) Infusion Approved, New Supportive Care Plan (NSCP) submitted, no action needed Thank you, Wilson Negrete Camp Assistant [facility] 06/22/2024,3:55 PM * Telephone Encounter - Kinga Rodriguez RN - 06/22/2024 3:54 PM EDT Referral entered, waiting for PFC review. * Telephone Encounter - Tila Moore LPN - 06/22/2024 3:18 PM EDT Order received for Reclast [place] plan built and routed to provider Creatinine and Calcium labs completed Awaiting provider signature, prior authorization, and completed Vitamin D lab before scheduling patient. Preferred administration date is 07/02/2024 or later. Patient's last dose of Reclast was on 07/02/2023. documented in this encounter Plan of Treatment Upcoming Encounters Date Type Department Care Team (Late st Contact Info) Description 06/29/2024 5:20 PM EDT Office Visit General Internal Medicine [facility] [address] [place] [address] Ishaan Pepe MD [address] [facility] [place] [address] 07/19/2024 9:00 AM EDT Office Visit [address] [address] Wilfred Reddy MD [address] [place] [address] [facility] Nurse [address] [place] [address] Photographer Yuliana [address] [address] 07/26/2024 2:30 PM EDT Office Visit Gastroenterology, [facility] [address] [place] [phone] Kishore Regalado CRNP [address] [place] [address] 08/04/2024 3:40 PM EDT Office Visit Neurology [facility] [address] [place] [address] Violette Marshall MD [address] [place] [address] 09/06/2024 3:30 PM EDT Office Visit Pulmonary Medicine, [facility] [address] [place] [phone] Iker Toney MD [address] [place] [address] 09/27/2024 2:00 PM EDT Office Visit General Internal Medicine [facility] [address] [facility] [place], [place] [address] Ishaan Pepe MD [address] [facility] [place] [address] 10/25/2024 2:40 PM EDT Office Visit Hepatology, [address] [phone] Kathryn Crespo DO [address] [place] [address] 12/15/2024 4:15 PM EDT Imaging Radiology [facility] [address] [place] [phone] 06/28/2025 2:30 PM EDT Office Visit Rheumatology, [address] [phone] Omega Galvin PA-C [address] [place] [address] [place] [address] Scheduled Procedures Name Priority Associated Diagnoses Date/Ti me COLONOSCOPY FLEXIBLE PROXIMA L DIAGNOSTIC Recall History of colonic polyps Health Maintenance Due Date Last Done Comments Cologuard 12/24/2012 Sigmoidoscopy 12/24/2012 *ADVANCE DIRECTIVE NOT ON FILE 03/12/2019 Diabetic Foot Exam 11/15/2020 11/16/2019, 0 09/21/2018, 08/06/2017, Additional history exists DISCUSS TOBACCO CESSATION (REFER TO SMARTSET #3291) 06/25/2023 06/24/2022, 05/27/2022, 05/19/2022, Additional history exists Fecal Occult Blood Test 11/20/2023 11/20/19, 11/19/2022, 11/19/2022 COVID-19 Vaccine ( season) 2023 Depression Screening 03/10/2024 03/10/2023 DXA Scan 06/03/2024 06/03/2022, 06/03/2022 TSH 08/31/2024 09/01/2023, 05/29, 05/04/2023, Additional history exists HbA1c 09/08/2024 03/10/2024, 06/0 06/2023, 05/26/2022, Additional history exists Albumin/Creatinine Ratio 10/06/2024 024, 11/11/2022, 11/16/2019, Additional history exists Mammogram 12/14/2024 12/15/2023, 11/28, 12/08/2022, Additional history exists GFR 06/20/2025 06/20/2024, 02/27, 11/11/2023, Additional history exists O2 ASSESSMENT COMPLETED IN PAST YEAR FOR COPD 06/20/2025 06/20/2024 Diabetic Eye Exam 06/21/2025 06/21/2024, , 06/21/2024, Additional history exists Colonoscopy 11/25/2027 11/24/2022, 10/29, 06/30/2018, Additional history exists Colorectal Cancer Screening 11/25/2027 Lipid Panel 08/31/2028 09/01/2023, 06/0 06/2023, 05/26/2022, Additional history exists DTap/Tdap Vaccines (9 - Td or Tdap) 02/28/2032 02/27/2022, 05/01/2010, 01/16/1997, Additional history exists Hepatitis B Vaccine Completed 02/06/2014, 09/06/2013, 08/09/2013 Zoster Vaccines Completed 03/08/2021, 11/08/2020 Alpha-1 Antitrypsin Completed 12/04/2021 Pneumococcal Vaccine: 50+ Years Completed 12/06/2021, 02/15/2009 RETIRED - COLONOSCOPY-EVERY 5 YRS AGES 18-100 Discontinued 11/24/2022, 11/24/2022, 06/30/2018, Additional history exists Lung Cancer Screening Completed 09/11/2023 , 06/15/2022, 04/15/2022, Additional history exists Influenza Vaccine (FLU shot) Completed 03/18/2024, 02/11/2023, 01/03/2022, Additional history exists VITAMIN D LEVEL ONCE IN A LIFETIME-USE SMARTSET# [id number] Completed 06/21/2024, 06/22/2023, 02/11/2023, Additional history exists HPV (Gardasil) Vaccine Aged Out No lo nger eligible based on patient's age to complete this topic MENINGOCOCCAL (MENACTRA/MENVEO) Aged Out No longer eligible based on patient's age to complete this topic Meningitis B Vaccine (Bexsero/Trumemba) Aged Out No longer eligible based on patient's age to complete this topic documented as of this encounter Medical Devices Implanted Type Area Hitting Coach Device Identifier Shelf Expiration Date Model / Serial / Lot Octrode, Lead Kit, 60 Cm Implanted:Qty: 1 on 06/20/2016 by Kirti Devine MD at OR [facility] N/A: Spine Lumbar [employer] 11/21/2017 [id number] / [id number] / Octrode, Lead Kit,60 Cm Implanted:Qty: 1 on 06/20/2016 by Kirti Devine MD at OR [facility] N/A: Spine Lumbar [employer] 05/02/2018 [id number] / [id number] / [place] 1192 - [id number] Implanted:Qty: 2 on 06/20/2016 by Kirti Devine MD at OR [facility] Left: Buttocks [employer] 06/27/2017 [id number] / / [id number] Battery Proclaim Elite 5 - [id number] - [id number] Implanted:Qty: 1 on 06/20/2016 by Kirti Devine MD at OR [facility] Left: Buttocks [employer] 05/27/2018 [id number] / [id number] / documented as of this encounter Advance Directives * Full Code (Latest Code Status on File) Date Activated Date Inactivated Comments 07/02/2022 11:57 PM 07/08/2022 2:10 PM This order r eflects the patients wishes and were consensually agreed upon. Question Answer Comments Discussion of Advance Directives occurred with: Patient * Full Code Date Activated Date Inactivated Comments 06/12/2022 6:22 PM 06/19/2022 5:18 PM This order r eflects the patients wishes and were consensually agreed upon. Question Answer Comments Discussion of Advance Directives occurred with: Patient * Full Code Date Activated Date Inactivated Comments 05/13/2022 8:41 PM 05/16/2022 2:28 PM This order r eflects the patients wishes and were consensually agreed upon. Question Answer Comments Discussion of Advance Directives occurred with: Patient * Full Code Date Activated Date Inactivated Comments 04/14/2022 2:35 AM 04/16/2022 7:28 PM This order r eflects the patients wishes and were consensually agreed upon. Question Answer Comments Discussion of Advance Directives occurred with: Patient * Full Code Date Activated Date Inactivated Comments 08/09/2020 5:20 PM 08/10/2020 4:21 PM This order r eflects the patients wishes and were consensually agreed upon. Healthcare Agents on File Name Relationship Healthcare Agent Relationshi p Communication Jemal Kacie Spouse Health Care Repr esentative (appointed verbally by patient or by statute hierarchy) Care Teams Horse Racetrack Manager Relationship Specialty Start Date End Date Ishaan Pepe MD [address] [place] [address] PCP - General Internal Medicine 07/18/21 documented as of this encounter
--- OUTSIDE RECORDS SUMMARY | 2024-06-30 07:04 | External Medical Summary | Summary of Care ---
Author Name Unknown Organization [facility] Address [address] [place] [address] Phone [phone] Care Team Providers Care Music Orchestrator Name Role Phone Ishaan Pepe MD Primary Care Provider + Reason for Visit * Reason Onset Date Comments Advice 06/22/2024 Other 06/22/2024 Precert Info Encounter Details Date Type Department Care Team ([facility] Contact Info) Description 06/22/[address] [address] Services, Scheduling [address] [place] [address] Advice; Other (Precert Info) Allergies Active Allergy Reactions Criticality Noted Date [...] Active EPINEPHrine 0.3 MG/0.3ML Injection Solution Auto-injector (Autoinjector)Marlene cations:Bee sting allergy For a severe reaction: [...] as needed for edema 11/10/19 24 Active Mirtazapine 30 MG Oral Tablet (Remeron) TAKE ONE TABLET BY MOUTH AT BEDTIME 90 Tablet 2 5 11:27 AM EDT 12/28/19 24 2024 Active Varenicline Tartrate 1 MG Oral Tablet (Chantix)Indicatio ns:Tobacco use Take 1 Tablet by mouth in the morning and 1 Tablet before bedtime. 60 Tablet 03/08/20 24 Active Vitamin A 3 MG (50842 UT) Oral Capsule (Aquasol-A) Take 1 Capsule [...] hour prior to MRI 1 Tablet 06/23/19 Active Ondansetron HCl 8 MG Oral Tablet (Zofran)Indication s:Nausea TAKE ONE TABLET BY MOUTH EVERY 8 HOURS NEEDED FOR NAUSEA. 180 Tablet 2 4 8:20 AM EST 12/28/19 24 2024 Disconti nued(Ref ill) documented as of this encounter (statuses as [...] dependence, uncomplicated 04/27/2020 Overview (07/30/2022): Managed by [facility] for opoid addiction - takes Subutex (Buprenorphine) [...] infection) 04/14/2022 07/30/2022 Paroxysmal SVT (supraventricular tachycardia) 11/14/19 22 07/30/2022 Preop examination 08/08/2020 10/10/2020 Well adult exam 08/08/2020 12/06/2021 Overview (10/22/2021): 10/18 [facility] stress echo normal EF, no CAD, Gr [...] (Oral) 973,05/25/1968,04/20/1968,02/25 Pneumococcal Conjugate Vacci ne, 20-valent ([id number]) 12/06/2021 Pneumococcal Polysaccharide PPV23 (Pneumovax) 02/15/2009 Rubella [...] 18 years and over) Not on file 3 Are you (or your family) jeffery eless [...] 06/12/2022 7:56 PM Sushil Naidu RN * Do you have serious difficulty walking or climbing stairs? (5 years old or older) Answer Date of Assessment Author Yes 07/04/2022 12:31 PM MARGOTT Lucy Mcgurie RN * Do you have difficulty dressing [...] Assessment Author No 06/12/2022 7:56 PM EDT Arcos, Ta batha L, RN documented as of this encounter Mental Status * Because of a physical, mental, or emotional condition, do you have serious difficulty concentrating, remembering, or making decisions? (5 years old or older) Answer Entry Date Author No 06/12/2022 7:56 PM EDT Sushil Arcos RN documented in this encounter Miscellaneous Notes * Telephone Encounter - Sonia Kinney OSA - 06/24/2024 11:16 AM EDT Received a call back from Ameena with [facility]. All three precerts were received and the patient is all set for her three scans today! * Telephone Encounter - Sonia Kinney OSA - 06/24/2024 9:38 AM EDT Late entry: Checked with Marianna in precert as I was leaving for the day about the MRA precert. She stated that the MRA was still pending even though its shows approved. Further down it shows pending! Marianna stated that "clinicals were sent, it is in review and I tried with a different patient yesterday, they won't allow me to speak to anyone. I will call over to see if I can get it expedited otherwise they will only be able to do the brain mri" As of today 06/24/24 9:45am-still pending. Left voicemail for Ameena with [facility] at [phone] with an update on the precert. Unable to check back with Marianna-she is off. * Telephone Encounter - Nataliya Villa CPhT - 06/23/2024 4:22 PM EDT Per Ameena from [facility] MRA of head still need sadditional clinicals to approve. Pt has her appt tomorrow at 1pm Thank you, Nataliya Villa [facility] National Insurance Officer [facility] ([facility]) 06/23/2024, 4:22 PM * Telephone Encounter - Sonia Kinney OSA - 06/23/2024 1:09 PM EDT Both precert approvals faxed to [phone] on 06/23/24. * Telephone Encounter - Sonia Kinney OSA - 06/23/2024 10:25 AM EDT Checked on status of precert. MRI-brain is approved. MRA is still pending. Will fax both to [facility] when available. * Telephone Encounter - Mary Maloney OSA - 06/23/2024 7:57 AM EDT Radiology called and provided information for precert: NPI# [id number] Tax ID# [id number] [address] [place] [address] Ameena @ [phone] * Telephone Encounter - Sonia Kinney OSA - 06/22/2024 4:39 PM EDT Received a voicemail back with the information requested. [facility]. Scan just got scheduled for this Thursday06/24/24. See information below: Name: Arely Hester : 69 Study: MRI BRAIN WITHOUT CONTRAST [MRBR] MRA HEAD WO CONTRAST [MRA-BR] Date of Study: Thursday06/24/24 Location: [facility] NPI #: [id number] Tax ID#: [id number] * Telephone Encounter - Sonia Kinney OSA - 06/22/2024 1:22 PM EDT Both orders faxed. Left voicemail for a call back with the information needed for radprecert such as address ,phone,fax, tax id#, NPI#. * Telephone Encounter - Thuy Garcia OSA - 06/22/2024 11:34 AM EDT Noa Mcgee calling to have MRI and MRA order faxed over from Dr. Reddy. Please advise Best call [phone]- Colette or Shanelle . documented in this encounter Plan of Treatment Upcoming Encounters Date Type Department Care Team (Late st Contact Info) Description 06/29/2024 5:20 PM EDT Office Visit General Internal Medicine [facility] [address] [place] [address] Ishaan Pepe MD [address] [place] [address] 07/19/2024 9:00 AM EDT Office Visit [facility] Eye [facility] [place] [address] Wilfred Reddy MD [address] [place] [address] Carmen Bridges Nurse [address] [place] [address] Photographer Yuliana [address] [address] 07/26/2024 2:30 PM EDT Office Visit Gastroenterology, [facility] [address] [place] [phone] Kishore Regalado CRNP [address] [place] [address] 08/04/2024 3:40 PM EDT Office Visit Neurology [facility] [address] [facility] [place] [address] Violette Marshall MD [address] [facility] [place], [place] [address] 09/06/2024 3:30 PM EDT Office Visit Pulmonary Medicine, [facility] [address] [place] [phone] Iker Toney MD [address] [place] [address] 09/27/2024 2:00 PM EDT Office Visit General Internal Medicine [facility] [address] [facility] [place], [place] [address] Ishaan Pepe MD [address] [facility] [place], [place] [address] 10/25/2024 2:40 PM EDT Office Visit Hepatology, [address] [phone] Kathryn Crespo DO [address] [place] [address] 12/15/2024 4:15 PM EDT Imaging Radiology [facility] [address] [place] [phone] 06/28/2025 2:30 PM EDT Office Visit Rheumatology, [address] [address] Omega Galvin, PA-C [address] [place] [address] Scheduled Procedures Name Priority Associated Diagnoses Date/Ti [...] D LEVEL ONCE IN A LIFETIME-USE SMARTSET# 19714 Completed 06/21/2024, 06/22/2023, 02/11/2023, Additional history exists [...] this encounter Medical Devices Implanted Type Area Assistant Printer Floor Covering Device Identifier Shelf Expiration Date Model / Serial / Lot Octrode, Lead Kit, 60 Cm Implanted:Qty: 1 on 06/20/2016 by Kirti Devine MD at OR [facility] N/A: Spine Lumbar [employer] 11/21/2017 [id number] / [id number] / Octrode, Lead Kit,60 Cm Implanted:Qty: 1 on 06/20/2016 by Kirti Devine MD at OR [facility] N/A: Spine Lumbar [employer] 05/02/2018 [id number] / [id number] / [place] 1192 - [id number] Implanted:Qty: 2 on 06/20/2016 by Kirti Devine MD at OR [facility] Left: Buttocks [employer] 06/27/2017 [id number] / / [id number] Battery Proclaim Elite 5 - [id number] - [id number] Implanted:Qty: 1 on 06/20/2016 by Kirti Devine MD at OR [facility] Left: Buttocks [employer] 05/27/2018 [id number] / [id number] / documented as of this encounter Advance [...] patient or by statute hierarchy) Care Teams Music Orchestrator Relationship Specialty Start Date End Date Ishaan Pepe MD [address] [place] [address] PCP - General Internal Medicine 07/18/21 documented as of this encounter
--- OUTSIDE RECORDS SUMMARY | 2024-06-30 07:04 | External Medical Summary | Summary of Care ---
Author Name Unknown Organization [facility] Address [address] [place] [address] Phone [phone] Care Team Providers Care Furnace Operator Oil Or Gas Name Role Phone Ishaan Pepe MD Primary Care Provider + Reason for Visit * Reason Onset Date Comments Advice 06/22/2024 Other 06/22/2024 Precert Info Encounter Details Date Type Department Care Team ([facility] Contact Info) Description 06/22/[address] [address] Services, Scheduling [address] [place] [address] Advice; Other (Precert Info) Allergies Active Allergy Reactions Criticality Noted Date Comments Adhesive Tape Rash 01/05/2009 Iodinated Contrast Media Tachypnea 07/02/2022 Povidone-Iodine 10/05/2018 Other reaction(s): . Omeprazole Anaphylaxis High 01/03/2010 Tongue itchy, ear throbbing documented as of this encounter (statuses as of 06/23/2024) Medications Up4 Probiotics Womens Oral Capsule Take [...] 03/08/20 24 Active Vitamin A 3 MG (29175 UT) Oral Capsule (Aquasol-A) Take 1 Capsule [...] as of this encounter (statuses as of 06/23/2024) Active Problems Problem Noted Date Diagnosed Date [...] dependence, uncomplicated 04/27/2020 Overview (07/30/2022): Managed by [facility] for opoid addiction - takes Subutex [...] as of this encounter (statuses as of 06/23/2024) Resolved Problems Problem Noted Date Diagnosed Date [...] adult exam 08/08/2020 12/06/2021 Overview (10/22/2021): 10/18 [facility] stress echo normal EF, no CAD, Gr [...] as of this encounter (statuses as of 06/23/2024) Immunizations Name Administration Dates Next Due DT - Diptheria/Tetanus (PEDS) 11/14/1985 ,06/30/1972,05/25/1968,04/20,02/26/1968 Hepatitis B, 20+ yrs 02/06/2014,09/06/2013,08/09 MMR-[facility] - Measles/Mumps/Rubella/Varicella Vaccine 10/13/1972 OPV - Polio Virus Vaccine (Oral) 973,05/25/1968,04/20/1968,02/25 Pneumococcal Conjugate Vacci ne, 20-valent ([id number]) 12/06/2021 Pneumococcal Polysaccharide PPV23 (Pneumovax) 02/15/2009 Rubella [...] No 11/01/2022 Does the household have a [facility] source of income? (Household - for ages [...] 7:56 PM MARGOTT Sushil Arcos RN * Are you blind or do you have serious difficulty seeing, even when wearing glasses? Answer Date of Assessment Author No 06/12/2022 7:56 PM EDT Sushil Arcos RN * Do you have serious difficulty walking or climbing stairs? (5 years old or older) Answer Date of Assessment Author Yes 07/04/2022 12:31 PM EDT Lucy Mcguire RN * Do you have difficulty dressing or bathing? (5 years old or older) Answer Date of Assessment Author Yes 06/12/2022 7:56 PM MARGOTT Sushil Arcos RN * Because of a physical, mental, or emotional condition, do you have difficulty doing errands alone such as visiting a doctor’s office or shopping? (15 years old or older) Answer Date of Assessment Author No 06/12/2022 7:56 PM Sushil Naidu RN documented as of this encounter Mental Status * Because of a physical, mental, or emotional condition, do you have serious difficulty concentrating, remembering, or making decisions? (5 years old or older) Answer Entry Date Author No 06/12/2022 7:56 PM EDT Sushil Arcos RN documented in this encounter Miscellaneous Notes * Telephone Encounter - Nataliya Villa CPhT - 06/23/2024 4:22 PM EDT Per Ameena from [facility] MRA of head still need sadditional clinicals to approve. Pt has her appt tomorrow at 1pm Thank you, Nataliya Villa CPhT [facility] ([facility]) 06/23/2024, 4:22 PM * Telephone Encounter - Sonia Kinney OSA - 06/23/2024 1:09 PM EDT Both precert approvals faxed to [phone] on 06/23/24. * Telephone Encounter - Sonia Kinney OSA - 06/23/2024 10:25 AM EDT Checked on status of precert. MRI-brain is approved. MRA is still pending. Will fax both to [facility] when available. * Telephone Encounter - Mary Maloney OSA - 06/23/2024 7:57 AM EDT Radiology called and provided information for precert: NPI# [id number] Tax ID# [id number] [address] [place] [address] Ameena @ [phone] * Telephone Encounter - Sonia Kinney OSA - 06/22/2024 4:39 PM EDT Received a voicemail back with the information requested. Sent an email to [facility] high priority. Scan just got scheduled for this Thursday06/24/24. See information below: Name: Arely Hester : 69 Study: MRI BRAIN WITHOUT CONTRAST [MRBR] MRA HEAD WO CONTRAST [MRA-BR] Date of Study: Thursday06/24/24 Location: [facility] MRI [facility] NPI #: [id number] Tax ID#: [id number] * Telephone Encounter - Sonia Kinney OSA - 06/22/2024 1:22 PM EDT Both orders faxed. Left voicemail for a call back with the [facility] such as address ,phone,fax, tax id#, NPI#. * Telephone Encounter - Thuy Garcia OSA - 06/22/2024 11:34 AM EDT [facility] calling to have MRI and MRA order faxed over from Dr. Reddy. Please advise Best call [phone]- Colette or Shanelle . documented in this encounter Plan of Treatment Upcoming Encounters Date Type Department Care Team (Late st Contact Info) Description 06/29/2024 5:20 PM EDT Office Visit General Internal Medicine [facility] [address] [place] [address] Ishaan Pepe MD [address] [facility] [place] [address] 07/19/2024 9:00 AM EDT [facility] [place], [address] [address] Wilfred Reddy MD [address] [place] [address] Whith[place]ralCarmen Nurse [address] [place] [address] Kristin Bridgeser [address] [address] 07/26/2024 2:30 PM EDT Office Visit Gastroenterology, [facility] [address] [place] [phone] Kishore Regalado CRNP [address] [place] [address] 08/04/2024 3:40 PM EDT Office Visit Neurology [facility] [address] [place] [address] Violette Marshall MD [address] [facility] [address] 09/06/2024 3:30 PM EDT Office Visit Pulmonary Medicine, [facility] [address] [facility] [place] [phone] Iker Toney MD [address] [place] [facility] [place] [address] 09/27/2024 2:00 PM EDT Office Visit General Internal Medicine [facility] [address] [place] [address] Ishaan Pepe MD [address] [place] [address] 10/25/2024 2:40 PM EDT Office [facility] [address] [place] [phone] Kathryn Crespo DO [address] [place] [address] 12/15/2024 4:15 PM EDT Imaging Radiology [facility] 1st [facility] [address] [place] [phone] 06/28/2025 2:30 PM EDT Office Visit Rheumatology, [facility] [address] [place], [place] [phone] Omega Galvin PA-C [address] [place], [place] [address] Scheduled Procedures Name Priority Associated Diagnoses Date/Ti me COLONOSCOPY FLEXIBLE PROXIMA L DIAGNOSTIC Recall History of colonic polyps Health Maintenance Due Date Last Done Comments Cologuard 12/24/2012 Sigmoidoscopy 12/24/2012 *ADVANCE DIRECTIVE NOT ON FILE 03/12/2019 Diabetic Foot Exam 11/15/2020 11/16/2019, 0 09/21/2018, 08/06/2017, Additional history exists DISCUSS TOBACCO CESSATION (REFER TO SMARTSET #5507) 06/25/2023 06/24/2022, 05/27/2022, 05/19/2022, Additional history exists [...] Cancer Screening 11/25/2027 Lipid Panel 08/31/2028 09/01/2023, 0606/2023, 05/26/2022, Additional history exists DTap/Tdap Vaccines (9 [...] D LEVEL ONCE IN A LIFETIME-USE SMARTSET# 38642 Completed 06/21/2024, 06/22/2023, 02/11/2023, Additional history exists [...] this encounter Medical Devices Implanted Type Area Boiler Engineer Device Identifier Shelf Expiration Date Model / Serial / Lot Octrode, Lead Kit, 60 Cm Implanted:Qty: 1 on 06/20/2016 by Kirti Devine MD at OR [facility] N/A: Spine Lumbar [employer] 11/21/2017 [id number] / [id number] / [place]rode, Lead Kit,60 Cm Implanted:Qty: 1 on 06/20/2016 by Kirti Devine MD at OR [facility] N/A: Spine Lumbar [employer] 05/02/2018 [id number] / [id number] / [place] 1192 - [id number] Implanted:Qty: 2 on 06/20/2016 by Kirti Devine MD at OR [facility] Left: Buttocks [employer] 06/27/2017 [id number] / / [id number] Battery [employer] Elite 5 - [id number] - [id number] Implanted:Qty: 1 on 06/20/2016 by Kirti Devine MD at OR [facility] Left: Buttocks [employer] 05/27/2018 [id number] / [id number] / documented as of this encounter Advance [...] Relationship Healthcare Agent Relationshi p Communication Jemal Hester Spouse Health Care Repr esentative (appointed verbally by patient or by statute hierarchy) Care Teams Furnace Operator Oil [employer] Relationship Specialty Start Date End Date Ishaan Pepe MD [address] [place] [address] PCP - General Internal Medicine 07/18/21 documented as of this encounter
--- OUTSIDE RECORDS SUMMARY | 2024-06-30 07:04 | External Medical Summary | Summary of Care ---
Author Name Unknown Organization [facility] Address [address] [place] [address] Phone [phone] Care Team Providers Care Talent Acquisition Project Manager Name Role Phone Ishaan Pepe MD Primary Care Provider + Reason for Visit * Reason Comments Medication Refill Encounter Details Date Type Department Care Team (Late st Contact Info) Description 06/23/2024 Refill General Internal Medicine [facility] [address] [place] [address] Ishaan Pepe MD [address] [place] [address] Nausea Allergies Active Allergy Reactions Criticality Noted Date [...] 03/08/20 24 Active Vitamin A 3 MG (24841 UT) Oral Capsule (Aquasol-A) Take 1 Capsule [...] to MRI 1 Tablet 06/23/19 25 Active Ondansetron HCl 8 MG Oral Tablet (Zofran)Indication s:Nausea TAKE ONE TABLET BY MOUTH EVERY 8 HOURS NEEDED FOR NAUSEA. 180 Tablet 2 06/25/19 25 Active Ondansetron HCl 8 MG Oral Tablet [...] dependence, uncomplicated 04/27/2020 Overview (07/30/2022): Man[facility] - takes Subutex [...] adult exam 08/08/2020 12/06/2021 Overview (10/22/2021): 10/18 [facility] stress echo normal EF, no CAD, Gr [...] (Oral) 973,05/25/1968,04/20/1968,02/25 Pneumococcal Conjugate Vacci ne, 20-valent ([id number]) 12/06/2021 Pneumococcal Polysaccharide PPV23 (Pneumovax) 02/15/2009 Rubella Vaccine 08/03/1968 Seasonal Influenza Virus Vac cine, Unspecified Formulation 04/10/2021,12/30/2019,04/18/2019 Seasonal Influenza, PF, 6 M & above, IM , (FluLaval or Fluzone) 02/11/2023,01/03/2022,04/10/2021,12/29,04/18/2019 Seasonal Influenza, Trivalen t, (IIV3), PF, (Fluzone) 03/18/2024 TDAP (age 10 and older)(Boostrix) 02/27/2022 TDAP, [...] 7:56 PM EDT Sushil Arcos RN * Are you blind [...] of Assessment Author Yes 06/12/2022 7:56 PM EDT Sushil Arcos RN * Because of a [...] encounter Miscellaneous Notes * Telephone Encounter - Ishaan Pepe MD - 06/24/2024 8:09 AM EDTSigned Prescriptions: Disp Refills Ondansetron HCl 8 MG Oral Tablet (Zofran) 180 Ta*2 Sig: TAKE ONE TABLET BY MOUTH EVERY 8 HOURS NEEDED FOR NAUSEA. Authorizing Provider: ISHAAN PEPE * Telephone Encounter - Makenna Noble RP - 06/23/2024 4:17 PM EDTPending Prescriptions: Disp Refills Ondansetron HCl 8 MG Oral Tablet (Zofran) 180 Ta*2 Sig: TAKE ONE TABLET BY MOUTH EVERY 8 HOURS NEEDED FOR NAUSEA. * Telephone Encounter - Makenna Noble RPh - 06/23/2024 4:17 PM EDT Forwarding to provider for further evaluation. Please approve and authorize additional refills if you would like patient to continue this medication. Pending Prescriptions: Disp Refills Ondansetron HCl 8 MG Oral Tablet (Zofran) 180 Ta*2 Sig: TAKE ONE TABLET BY MOUTH EVERY 8 HOURS NEEDED FOR NAUSEA. Thank you, Makenna Noble [facility] Clinical Pharmacist Centralized Clinical Pharmacy Services (CCPS) 06/23/24 4:17 PM [phone] * Telephone Encounter - Makenna Noble RPh - 06/23/2024 4:15 PM EDT Did you pend patient's preferred pharmacy and medication before forwarding?yes Pharmacy: [facility] Pending Prescriptions: Disp Refills Ondansetron HCl 8 MG Oral Tablet (Zofran) 180 Ta*2 Sig: TAKE ONE TABLET BY MOUTH EVERY 8 HOURS NEEDED FOR NAUSEA. Last Visit: 03/18/2024 (in office), 03/21/2022 (telemedicine) Next Visit: 06/29/2024 If no future appointments scheduled, and last appointment is greater than a year ago, please schedule patient for a follow-up appointment Last date the medication was ordered: 12/28/2023 Is this request for a controlled substance?No Urine Drug Screen:No results found. However, due to the size of the patient record, not all encounters were searched. Please check Results Review for a complete set of results. Patient Phone Numbers Labs: Lab Results Component Value Date/Time CREAT 0.8 06/20/2024 10:56 PM CREAT 0.82 02/08/2022 01:58 PM CREAT 1.0 04/27/2020 02:40 PM CREAT 0.5 (L) 07/05/1996 01:00 PM POTASSIUM 3.7 06/20/2024 10:56 PM POTASSIUM 3.4 (L) 02/08/2022 01:58 PM POTASSIUM 3.7 04/27/2020 02:40 PM POTASSIUM 3.5 07/05/1996 01:00 PM TSH 0.65 09/01/2023 04:30 PM TSH 0.60 01/04/2020 04:49 PM TSH 4.95 07/05/1996 01:00 PM LDL 109 09/01/2023 04:30 PM LDL 112 09/01/2023 04:30 PM LDL 77 10/19/2019 02:04 PM ALT 13 06/20/2024 10:56 PM ALT 25 02/08/2022 01:58 PM ALT 15 04/09/2020 04:54 PM ALT 14 07/05/1996 01:00 PM HGBA1C 5.9 (H) 03/10/2024 12:52 PM HGBA1C 5.8 (H) 04/27/2020 02:40 PM documented in this encounter Plan of Treatment Upcoming Encounters Date Type Department Care Team (Late st Contact Info) Description 06/29/2024 5:20 PM EDT Office Visit General Internal Medicine [facility] [address] [place] [address] Ishaan Pepe MD [address] [place] [address] 07/19/2024 9:00 AM EDT Office Visit [facility] [address] [address] Wilfred Reddy MD [address] [place] [address] Carmen Bridges [address] [place] [address] Photographer Yuliana [address] [address] 07/26/2024 2:30 PM EDT Office Visit Gastroenterology, [facility] [address] [place] [phone] Kishore Regalado CRNP [address] [place] [address] 08/04/2024 3:40 PM EDT Office Visit Neurology [facility] [address] [facility] [place] [address] Violette Marshall MD [address] [place] [address] 09/06/2024 3:30 PM EDT Office Visit Pulmonary Medicine, [facility] [address] [place] [phone] Iker Toney MD [address] [facility] [place] [address] 09/27/2024 2:00 PM EDT Office Visit General Internal Medicine [facility] [address] [facility] [place] [address] Ishaan Pepe MD [address] [place] [address] 10/25/2024 2:40 PM EDT Office Visit Hepatology, [address] [phone] Kathryn Crespo DO [address] [place] [address] 12/15/2024 4:15 PM EDT Imaging Radiology [facility] 1st [facility] [address] [place] [phone] 06/28/2025 2:30 PM EDT Office Visit Rheumatology, [address] [address] Omega Galvin PA-C [address] [place] [address] [place], [place] [address] Scheduled Procedures Name Priority Associated Diagnoses Date/Ti me COLONOSCOPY FLEXIBLE PROXIMA L DIAGNOSTIC Recall History of colonic polyps Health Maintenance Due Date Last Done Comments Cologuard 12/24/2012 Sigmoidoscopy 12/24/2012 *ADVANCE DIRECTIVE NOT ON FILE 03/12/2019 Diabetic Foot Exam 11/15/2020 11/16/2019, 0 09/21/2018, 08/06/2017, Additional history exists DISCUSS TOBACCO CESSATION (REFER TO SMARTSET #0617) 06/25/2023 06/24/2022, 05/27/2022, 05/19/2022, Additional history exists [...] D LEVEL ONCE IN A LIFETIME-USE SMARTSET# 71333 Completed 06/21/2024, 06/22/2023, 02/11/2023, Additional history exists [...] this encounter Medical Devices Implanted Type Area Sanding Machine Buffer Device Identifier Shelf Expiration Date Model / Serial / Lot Octrode, Lead Kit, 60 Cm Implanted:Qty: 1 on 06/20/2016 by Kirti Devine MD at OR [facility] N/A: Spine Lumbar [employer] 11/21/2017 [id number] / [id number] / Octrode, Lead Kit,60 Cm Implanted:Qty: 1 on 06/20/2016 by Kirti Deivne MD at OR [facility] N/A: Spine Lumbar [employer] 05/02/2018 [id number] / [id number] / [place] 1192 - [id number] Implanted:Qty: 2 on 06/20/2016 by Kirti Devine MD at OR [facility] Left: Buttocks [employer] 06/27/2017 [id number] / / [id number] Battery Proclaim Elite 5 - [id number] - [id number] Implanted:Qty: 1 on 06/20/2016 by Kirti Devine MD at OR [facility] Left: Buttocks [employer] 05/27/2018 [id number] / [id number] / documented as of this encounter Visit Diagnoses Diagnosis Advanced care planning/counseling discussion- Primary Other specified counseling Acute deep vein thrombosis (DVT) of femoral vein of right lower extremity (HCC) Acute pulmonary embolism with acute cor pulmonale, unspecified pulmonary embolism type (HCC) COPD, group C, by GOLD 2017 classification (HCC) Liver cirrhosis secondary to nonalcoholic steatohepatitis (SOTOMAYOR) (HCC) Acquired hypothyroidism Unspecified hypothyroidism Other ascites Gastro-esophageal reflux disease without esophagitis Esophageal reflux S/P gastric bypass Bariatric surgery status Fibromyalgia Mylagia and myositis, unspecified Opioid dependence, uncomplicated (HCC) Nausea Nausea alone Screening mammogram for breast cancer documented in this encounter Advance Directives * Full Code [...] Relationship Healthcare Agent Relationshi p Communication Jemal [place] Spouse Health Care Repr esentative (appointed verbally by patient or by statute hierarchy) Care Teams Talent Acquisition Project Manager Relationship Specialty Start Date End Date Ishaan Pepe MD 200 [place] [address] PCP - General Internal Medicine 07/18/21 documented as of this encounter
--- OUTSIDE RECORDS SUMMARY | 2024-06-30 07:04 | External Medical Summary | Summary of Care ---
Author Name Unknown Organization [facility] Address [address] [place] [address] Phone [phone] Care Team Providers Care Diesel Locomotive Firer/Fireman Name Role Phone Ishaan Pepe MD Primary Care Provider + Reason for Visit * Reason Onset Date Comments Advice 06/22/2024 Other 06/22/2024 Precert Info Encounter Details Date Type Department Care Team ([facility] Contact Info) Description 06/22/[address] [address] Services, Scheduling [address] [place] [address] Advice; Other (Precert Info) Allergies Active Allergy [...] 03/08/20 24 Active Vitamin A 3 MG (98312 UT) Oral Capsule (Aquasol-A) Take 1 Capsule [...] dependence, uncomplicated 04/27/2020 Overview (07/30/2022): Managed by [facility] for opoid addiction - takes Subutex [...] adult exam 08/08/2020 12/06/2021 Overview (10/22/2021): 10/18 [facility] stress echo normal EF, no [...] (Oral) 973,05/25/1968,04/20/1968,02/25 Pneumococcal Conjugate Vacci ne, 20-valent (Vnililm69) 12/06/2021 Pneumococcal Polysaccharide PPV23 (Pneumovax) 02/15/2009 Rubella [...] voicemail for Ameena with [facility] at [phone] with an update on the precert. Unable to check back with Marianna-she is off. * Telephone Encounter - Nataliya Villa CPhT - 06/23/2024 4:22 PM EDT Per Ameena from [facility] MRA of head still need sadditional clinicals to approve. Pt has her appt tomorrow at 1pm Thank you, Nataliya Villa CPhT Supervisor Aircraft Maintenance Centralized Clinical Pharmacy Services (CCPS) 06/23/2024, 4:22 PM * Telephone Encounter - Sonia Kinney OSA - 06/23/2024 1:09 PM EDT Both precert approvals faxed to [phone] on 06/23/24. * Telephone Encounter - Sonia Kinney OSA - 06/23/2024 10:25 AM EDT Checked on status of precert. MRI-brain is approved. MRA is still pending. Will fax both to [facility] when available. * Telephone Encounter - Mary Maloney OSA - 06/23/2024 7:57 AM EDT Radiology called and provided information for precert: NPI# [id number] Tax ID# [id number] [address] [place] [address] Ameena @ [phone] * Telephone Encounter - Sonia Kinney OSA - 06/22/2024 4:39 PM EDT Received a voicemail back with the information requested. [facility] Scan just got scheduled for this Thursday06/24/24. See information below: Name: Arely Hester : 69 Study: MRI BRAIN WITHOUT CONTRAST [MRBR] MRA HEAD WO CONTRAST [MRA-BR] Date of Study: Thursday06/24/24 Location: [facility] NPI #: [id number] Tax ID#: [id number] * Telephone Encounter - Sonia Kinney OSA [...] from Dr. Reddy. Please advise Best call [phone]- Colette or Shanelle . documented in this encounter Plan of Treatment Upcoming Encounters Date Type Department Care Team (Late st Contact Info) Description 06/29/2024 5:20 PM EDT Office Visit General Internal Medicine [facility] [address] [place] [address] Ishaan Pepe MD 200 [facility] [place] [address] 07/19/2024 9:00 AM EDT [facility] [address] [address] Wilfred Reddy MD [address] [place] [address] Carmen Bridges [address] [place] [address] Photographer Yuliana [address] [address] 07/26/2024 2:30 PM EDT Office Visit Gastroenterology, [facility] [address] [place] [address] Kishore Regalado CRNP [address] [place] [address] 08/04/2024 3:40 PM EDT Office Visit Neurology [facility] [address] [place] [address] Violette Marshall MD 200 [facility] [place] [address] 09/06/2024 3:30 PM EDT Office Visit Pulmonary Medicine, [facility] [address] [place] [phone] Iker Toney MD [address] [place] [address] 09/27/2024 2:00 PM EDT Office Visit General Internal Medicine [facility] 200 [facility] [place] [address] Ishaan Pepe MD 200 [facility] [place], [place] [address] 10/25/2024 2:40 PM EDT Office Visit Hepatology, [address] [phone] Kathryn Crespo DO [address] [place] [address] 12/15/2024 4:15 PM EDT Imaging Radiology [facility] 1st [facility] [address] [place] [phone] 06/28/2025 2:30 PM EDT Office Visit Rheumatology, [address] [address] Omega Galvin, PADebbyC [address] [place] [address] [place] [address] Scheduled Procedures Name Priority Associated Diagnoses Date/Ti me COLONOSCOPY FLEXIBLE PROXIMA L DIAGNOSTIC Recall History of colonic polyps Health Maintenance Due Date Last Done Comments Cologuard 12/24/2012 Sigmoidoscopy 12/24/2012 *ADVANCE DIRECTIVE NOT ON FILE 03/12/2019 Diabetic Foot Exam 11/15/2020 11/16/2019, 0 09/21/2018, 08/06/2017, Additional history exists DISCUSS TOBACCO CESSATION (REFER TO SMARTSET #6434) 06/25/2023 06/24/2022, 05/27/2022, 05/19/2022, Additional history exists Fecal Occult Blood Test 11/20/2023 11/20/19, 11/19/2022, 11/19/2022 COVID-19 Vaccine ( season) 2023 Depression Screening 03/10/2024 03/10/2023 DXA Scan 06/03/2024 06/03/2022, 06/03/2022 TSH 08/31/2024 09/01/2023, 05/29, 05/04/2023, Additional history exists HbA1c 09/08/2024 03/10/2024, 060 06/2023, 05/26/2022, Additional history exists Albumin/Creatinine Ratio [...] Cancer Screening 11/25/2027 Lipid Panel 08/31/2028 09/01/2023, 060 06/2023, 05/26/2022, Additional history exists DTap/Tdap Vaccines [...] D LEVEL ONCE IN A LIFETIME-USE SMARTSET# 16245 Completed 06/21/2024, 06/22/2023, 02/11/2023, Additional history exists [...] this encounter Medical Devices Implanted Type Area Bakery Chef Device Identifier Shelf Expiration Date Model / Serial / Lot Snehalrode, Lead Kit, 60 Cm Implanted:Qty: 1 on 06/20/2016 by Kirti Devine MD at OR [facility] N/A: Spine Lumbar [employer] 11/21/2017 [id number] / [id number] / [place]nehalro[place]renton, Lead Kit,60 Cm Implanted:Qty: 1 on 06/20/2016 by Kirti Devine MD at OR [facility] N/A: Spine Lumbar [employer] 05/02/2018 [id number] / [id number] / [place] 1192 - [id number] Implanted:Qty: 2 on 06/20/2016 by Kirti Devine MD at OR [facility] Left: Buttocks [employer] 06/27/2017 [id number] / / [id number] Battery Proclaim Elite 5 - [id number] - [id number] Implanted:Qty: 1 on 06/20/2016 by Kirti Devine MD at OR [facility] Left: Buttocks [employer] 05/27/2018 [id number] / [id number] / documented as of this encounter Advance [...] Name Relationship Healthcare Agent Relationshi p Communication [facility] Spouse Health Care Repr esentative (appointed verbally by patient or by statute hierarchy) Care Teams Diesel Locomotive Firer/Fireman Relationship Specialty Start Date End Date Ishaan Pepe MD [address] [place] [address] PCP - General Internal Medicine 07/18/21 documented as of this encounter
--- OUTSIDE RECORDS SUMMARY | 2024-06-30 07:05 | External Medical Summary | Summary of Care ---
Author Name Unknown Organization [facility] Address [address] [place] [address] Phone [phone] Care Team Providers Care Biochemistry Technologist Name Role Phone Ishaan Pepe MD Primary Care Provider + Reason for Visit * Reason Onset Date Comments Medication Pre-auth 06/22/2024 Reclast Encounter Details Date Type Department Care Team ([facility] st Contact Info) Description 06/22/2024 Telephone Hematology/Oncology Treatment, [place] [address] [place] [address] Omega Galvin PA-C [facility] [place] [address] Medication Pre-auth (Reclast) Allergies Active Allergy Reactions Criticality Noted Date Comments Adhesive Tape Rash 01/05/2009 Iodinated Contrast Media Tachypnea 07/02/2022 Povidone-Iodine 10/05/2018 Other reaction(s): . Omeprazole Anaphylaxis High 01/03/2010 Tongue itchy, ear throbbing documented as of this encounter (statuses as of 06/22/2024) Medications Up4 Probiotics Womens Oral Capsule Take [...] 03/08/20 24 Active Vitamin A 3 MG (93675 UT) Oral Capsule (Aquasol-A) Take 1 Capsule [...] as of this encounter (statuses as of 06/22/2024) Active Problems Problem Noted Date Diagnosed Date [...] dependence, uncomplicated 04/27/2020 Overview (07/30/2022): Managed by [facility] for opoid addiction - takes [...] as of this encounter (statuses as of 06/22/2024) Resolved Problems Problem Noted Date Diagnosed Date [...] adult exam 08/08/2020 12/06/2021 Overview (10/22/2021): 10/18 [facility] stress echo normal EF, no CAD, [...] as of this encounter (statuses as of 06/22/2024) Immunizations Name Administration Dates Next Due DT - Diptheria/Tetanus (PEDS) 11/14/1985 ,06/30/1972,05/25/1968,04/20,02/26/1968 Hepatitis B, 20+ yrs 02/06/2014,09/06/2013,08/09 MMR-LUKE - Measles/Mumps/Rubella/Varicella Vaccine 10/13/1972 OPV - Polio Virus Vaccine (Oral) 973,05/25/1968,04/20/1968,02/25 Pneumococcal Conjugate Vacci ne, 20-valent (Vzubnxt72) 12/06/2021 Pneumococcal Polysaccharide PPV23 (Pneumovax) 02/15/2009 Rubella [...] encounter Miscellaneous Notes * Telephone Encounter - Lizzeth Negrete PHARM Tech - 06/22/2024 3:55 PM EDT Rheumatology Referral: Infusions or Clinic Administered Medications (CAM) Infusion Approved, New Supportive Care Plan (NSCP) submitted, no action needed Thank you, Wilson Negrete Manufactured Buildings Supervisor I Centralized Clinical Pharmacy Services (CCPS) 06/22/2024,3:55 PM * Telephone Encounter - Kinga Rodriguez RN - 06/22/2024 3:54 PM EDT Referral entered, waiting for PFC review. * Telephone Encounter - Tila Moore LPN - 06/22/2024 3:18 PM EDT Order received for Reclast [place] plan built and routed to provider Creatinine [...] General Internal Medicine [facility] [address] [place] [address] Ishaan Pepe MD [address] [place] [address] 07/19/2024 9:00 AM EDT Office Visit [facility] [address] [address] Wilfred Reddy MD [address] [place] [address] ProsperityCarmen Nurse [address] [place] [address] Kristin Bridgeser [address] [address] 07/26/2024 2:30 PM EDT Office Visit Gastroenterology, [facility] [address] [place] [address] Kishore Regalado CRNP [address] [facility] [place] [address] 08/04/2024 3:40 PM EDT Office Visit Neurology [facility] [address] [place] [address] Violette Marshall MD 200 [facility] [address] 09/06/2024 3:30 PM EDT Office Visit Pulmonary Medicine, [facility] [address] [facility] [facility] [place] [phone] Iker Toney MD [address] [place] [address] 09/27/2024 2:00 PM EDT Office Visit General Internal Medicine [facility] [address] [place] [address] Ishaan Pepe MD 200 [facility] [place] [address] 10/25/2024 2:40 PM EDT Office Visit Hepatology, [facility] [address] [place] [address] Kathryn Crespo DO [address] [place] [address] 12/15/2024 4:15 PM EDT Imaging Radiology [facility]st [facility], [place] [address] [place] [phone] 06/28/2025 2:30 PM EDT Office Visit Rheumatology, [facility] [address] [place] [address] Omega Galvin PA-C [address] [employer] [place], [place] [address] Scheduled Procedures Name Priority Associated Diagnoses Date/Ti me COLONOSCOPY FLEXIBLE PROXIMA L DIAGNOSTIC Recall History of colonic polyps Health Maintenance Due Date Last Done Comments Cologuard 12/24/2012 Sigmoidoscopy 12/24/2012 *ADVANCE DIRECTIVE NOT ON FILE 03/12/2019 Diabetic Foot Exam 11/15/2020 11/16/2019, 0 09/21/2018, 08/06/2017, Additional history exists DISCUSS TOBACCO CESSATION (REFER TO SMARTSET #4545) 06/25/2023 06/24/2022, 05/27/2022, 05/19/2022, Additional history exists Fecal Occult Blood Test 11/20/2023 11/20/19 23, 11/19/2022, 11/19/2022 COVID-19 Vaccine ( season) 2023 [...] Discontinued 11/24/2022, 11/24/2022, 06/30/2018, Additional history exists VITAMIN D LEVEL ONCE IN A LIFETIME-USE SMARTSET# 86784 Completed 06/21/2024, 06/22/2023, 02/11/2023, Additional history exists Lung Cancer Screening Completed 09/11/2023 , 06/15/2022, 04/15/2022, Additional history exists Influenza Vaccine (FLU shot) Completed 03/18/2024, 02/11/2023, 01/03/2022, Additional history exists HPV (Gardasil) Vaccine Aged Out No lo nger eligible based on patient's age to complete this topic MENINGOCOCCAL (MENACTRA/MENVEO) Aged Out No longer eligible based on patient's age to complete this topic Meningitis B Vaccine (Bexsero/Trumemba) Aged Out No longer eligible based on patient's age to complete this topic documented as of this encounter Medical Devices Implanted Type Area Power Technician Device Identifier Shelf Expiration Date Model / Serial / Lot Octrode, Lead Kit, 60 Cm Implanted:Qty: 1 on 06/20/2016 by Kirti Devine MD at OR [facility] N/A: Spine Lumbar [employer] 11/21/2017 [id number] / [id number] / Octrode, Lead Kit,60 Cm Implanted:Qty: 1 on 06/20/2016 by Kirti Devine MD at OR [facility] N/A: Spine Lumbar [employer] 05/02/2018 [id number] / [id number] / [place] 1192 - [id number] Implanted:Qty: 2 on 06/20/2016 by Kirti Devine MD at OR [facility] Left: Buttocks [employer] 06/27/2017 [id number] / / [id number] Battery Proclaim Elite 5 - [id number] - [id number] Implanted:Qty: 1 on 06/20/2016 by Kirti Devine MD at OR [facility] Left: Buttocks [employer] 05/27/2018 [id number] / [id number] / documented as of this encounter Advance [...] Relationship Healthcare Agent Relationshi p Communication Jemal [place] Spouse Health Care Repr esentative (appointed verbally by patient or by statute hierarchy) Care Teams Biochemistry Technologist Relationship Specialty Start Date End Date Ishaan Pepe MD [address] [place] [address] PCP - General Internal Medicine 07/18/21 documented as of this encounter
--- OUTSIDE RECORDS SUMMARY | 2024-06-30 07:05 | External Medical Summary | Summary of Care ---
Author Name Unknown Organization [facility] Address [address] [place] [address] Phone [phone] Care Team Providers Care Litharge Mill Operator Name Role Phone Ishaan Pepe MD Primary Care Provider + Reason for Visit * Reason Onset Date Comments Medication Pre-auth 06/22/2024 Reclast Encounter Details Date Type Department Care Team ([facility] st Contact Info) Description 06/22/2024 Telephone Hematology/Oncology Treatment, [place] [address] [place] [address] Omega Galvin PA-C [facility] [place] [address] Medication Pre-auth (Reclast) Allergies Active [...] 03/08/20 24 Active Vitamin A 3 MG (47601 UT) Oral Capsule (Aquasol-A) Take 1 Capsule [...] dependence, uncomplicated 04/27/2020 Overview (07/30/2022): Managed by [facility] for [facility]oid addiction - takes Subutex [...] adult exam 08/08/2020 12/06/2021 Overview (10/22/2021): 10/18 [facility] stress echo normal EF, no [...] (Oral) 973,05/25/1968,04/20/1968,02/25 Pneumococcal Conjugate Vacci ne, 20-valent ([id number]) 12/06/2021 Pneumococcal Polysaccharide PPV23 (Pneumovax) 02/15/2009 Rubella [...] encounter Miscellaneous Notes * Telephone Encounter - Kinga Rodriguez RN [...] no action needed Thank you, Wilson Negrete Senior Finance Manager I Centralized Clinical Pharmacy Services (CCPS) 06/22/2024,3:55 PM * Telephone Encounter - Kinga Rodriguez RN - 06/22/2024 3:54 PM EDT Referral entered, waiting for PFC review. * Telephone Encounter - Tila Moore LPN - 06/22/2024 3:18 PM EDT Order received for Reclast [place] plan built and routed to provider Creatinine [...] PM EDT Office Visit General Internal Medicine [facility] [address] [place] [address] Ishaan Pepe MD 200 [facility] [place] [address] 07/19/2024 9:00 AM EDT Office Visit [facility] Eye [address] [address] Wilfred Reddy MD [address] [place], [place] [address] [place]Carmen Nurse [address] [place] [address] Photographer Yuliana [address] [address] 07/26/2024 2:30 PM EDT Office Visit Gastroenterology, [facility] [address] [place] [address] Kishore Regalado CRNP [address] [place] [facility] [place] [address] 08/04/2024 3:40 PM EDT Office Visit Neurology [facility] 200 [facility] [place] [address] Violette Marshall MD 200 [place] [address] 09/06/2024 3:30 PM EDT Office Visit Pulmonary Medicine, [facility] [address] [place] [address] kIer Toney MD [address] [place] [address] 09/27/2024 2:00 PM EDT Office Visit General Internal Medicine [facility] 200 [place] [address] Ishaan Pepe MD 200 [facility] [place], [place] [address] 10/25/2024 2:40 PM EDT Office Visit Hepatology, [facility] [address] [place] [phone] Kathryn Crespo, DO [address] [place] [address] 12/15/2024 4:15 PM EDT Imaging Radiology [address] [place] [address] 06/28/2025 2:30 PM EDT Office Visit Rheumatology, [address] [address] Omega Galvin, BUSTER [address] [place], [place] [address] Scheduled Procedures Name Priority Associated Diagnoses Date/Ti me COLONOSCOPY FLEXIBLE PROXIMA L DIAGNOSTIC Recall History of colonic polyps Health Maintenance Due Date Last Done Comments Cologuard 12/24/2012 Sigmoidoscopy 12/24/2012 *ADVANCE DIRECTIVE NOT ON FILE 03/12/2019 Diabetic Foot Exam 11/15/2020 11/16/2019, 0 09/21/2018, 08/06/2017, Additional history exists DISCUSS TOBACCO CESSATION (REFER TO SMARTSET #7924) 06/25/2023 06/24/2022, 05/27/2022, 05/19/2022, Additional history exists [...] D LEVEL ONCE IN A LIFETIME-USE SMARTSET# 88916 Completed 06/21/2024, 06/22/2023, 02/11/2023, Additional history exists [...] this encounter Medical Devices Implanted Type Area Ob Scrub Tech Device Identifier Shelf Expiration Date Model / Serial / Lot Octrode, Lead Kit, 60 Cm Implanted:Qty: 1 on 06/20/2016 by Kirti Devine MD at OR [facility] N/A: Spine Lumbar [employer] 11/21/2017 3186 / [id number] / Octrode, Lead Kit,60 Cm Implanted:Qty: 1 on 06/20/2016 by Kirti Devine MD at OR [facility] N/A: Spine Lumbar [employer] 05/02/2018 [id number] / [id number] / [place] 1192 - [id number] Implanted:Qty: 2 on 06/20/2016 by Kirti Devine MD at OR [facility] Left: Buttocks [employer] 06/27/2017 1192ANS / / [id number] Battery Proclaim Elite 5 - [id number] - [id number] Implanted:Qty: 1 on 06/20/2016 by Kirti Devine MD at OR [facility] Left: Buttocks [employer] 05/27/2018 [id number] / [id number] / documented as of this encounter Advance [...] patient or by statute hierarchy) Care Teams Litharge Mill Operator Relationship Specialty Start Date End Date Ishaan Pepe MD 200 [place] [address] PCP - General Internal Medicine 07/18/21 documented as of this encounter
--- OUTSIDE RECORDS SUMMARY | 2024-06-30 07:05 | External Medical Summary | Summary of Care ---
Author Name Unknown Organization [facility] Address [address] [place] [address] Phone [phone] Care Team Providers Care Film Numberer Name Role Phone Ishaan Pepe MD Primary Care Provider + Reason for Visit * Reason Onset Date Comments Medication Pre-auth 06/22/2024 Reclast Encounter Details Date Type Department Care Team ([facility] st Contact Info) Description 06/22/2024 Telephone Hematology/Oncology Treatment, [place] [address] [place] [address] Omega Galvin PA-C [facility] [place] [address] [address] Medication Pre-auth (Reclast) Allergies Active [...] 03/08/20 24 Active Vitamin A 3 MG (76425 UT) Oral Capsule (Aquasol-A) Take 1 Capsule [...] dependence, uncomplicated 04/27/2020 Overview (07/30/2022): Managed by [facility] for opoid addiction - takes [...] adult exam 08/08/2020 12/06/2021 Overview (10/22/2021): 10/18 [facility] [place] stress echo normal EF, no CAD, Gr [...] (Oral) 973,05/25/1968,04/20/1968,02/25 Pneumococcal Conjugate Vacci ne, 20-valent ([id number]) 12/06/2021 Pneumococcal Polysaccharide PPV23 (Pneumovax) 02/15/2009 Rubella [...] no action needed Thank you, Wilson Negrete Economic Forecaster I Centralized Clinical Pharmacy Services (CCPS) 06/22/2024,3:55 PM * Telephone Encounter - Kinga Rodriguez RN - 06/22/2024 3:54 PM EDT Referral entered, waiting for PFC review. * Telephone Encounter - Tila Moore LPN - 06/22/2024 3:18 PM EDT Order received for Reclast [place] plan built and routed to provider Creatinine [...] State Kristal Mcclellan [address] [place] [address] Ishaan Pepe MD [address] [place] [address] 07/19/2024 9:00 AM EDT Office Visit [facility] Eye [address] [address] Wilfred Reddy MD [address] [place] [address] [place]armen Nurse [address] [place] [address] Kristin Bridgeser [address] [address] 07/26/2024 2:30 PM EDT Office Visit Gastroenterology, [facility] [address] [place] [address] Kishore Regalado CRNP 132 [place] [address] 08/04/2024 3:40 PM EDT Office Visit Neurology [facility] [address] [place] [address] Violette Marshall MD 200 [facility] [place] [address] 09/06/2024 3:30 PM EDT Office Visit Pulmonary Medicine, [facility] [address] [place] [facility] [place] [phone] Iker Toney MD [address] [place] [address] 09/27/2024 2:00 PM EDT Office Visit General Internal Medicine [facility] [address] [place] [address] Ishaan Pepe MD 200 [facility] [place] [address] 10/25/2024 2:40 PM EDT Office Visit Hepatology, [facility] [address] [place] [address] Kathryn Crespo DO [address] [place] [address] 12/15/2024 4:15 PM EDT Imaging Radiology [facility]st [facility], [place] [address] [place] [phone] 06/28/2025 2:30 PM EDT Office Visit Rheumatology, [facility] [address] [place] [address] Omega Galvin PA-C [address] [place], [place] [address] Scheduled Procedures Name Priority Associated Diagnoses Date/Ti me COLONOSCOPY FLEXIBLE PROXIMA L DIAGNOSTIC Recall History of colonic polyps Health Maintenance Due Date Last Done Comments Cologuard 12/24/2012 Sigmoidoscopy 12/24/2012 *ADVANCE DIRECTIVE NOT ON FILE 03/12/2019 Diabetic Foot Exam 11/15/2020 11/16/2019, 0 09/21/2018, 08/06/2017, Additional history exists DISCUSS TOBACCO CESSATION (REFER TO SMARTSET #4761) 06/25/2023 06/24/2022, 05/27/2022, 05/19/2022, Additional history exists [...] D LEVEL ONCE IN A LIFETIME-USE SMARTSET# 14372 Completed 06/21/2024, 06/22/2023, 02/11/2023, Additional history exists [...] this encounter Medical Devices Implanted Type Area International Affairs Vice President Device Identifier Shelf Expiration Date Model / Serial / Lot Octrode, Lead Kit, 60 Cm Implanted:Qty: 1 on 06/20/2016 by Kirti Devine MD at OR [facility] N/A: Spine Lumbar [employer] 11/21/2017 3186 / [id number] / Octrode, Lead Kit,60 Cm Implanted:Qty: 1 on 06/20/2016 by Kirti Devine MD at OR [facility] N/A: Spine Lumbar [employer] 05/02/2018 [id number] / [id number] / [place] 1192 - [id number] Implanted:Qty: 2 on 06/20/2016 by Kirti Devine MD at OR [facility] Left: Buttocks [employer] 06/27/2017 [id number] / / [id number] Battery Proclaim Elite 5 - [id number] - [id number] Implanted:Qty: 1 on 06/20/2016 by Kirti Devine MD at OR [facility] Left: Buttocks [employer] 05/27/2018 [id number] / [id number] / documented as of this encounter Advance [...] Relationship Healthcare Agent Relationshi p Communication Jemal [place] Spouse Health Care Repr esentative (appointed verbally by patient or by statute hierarchy) Care Teams Film Numberer Relationship Specialty Start Date End Date Ishaan Pepe MD [address] [place] [address] PCP - General Internal Medicine 07/18/21 documented as of this encounter
--- OUTSIDE RECORDS SUMMARY | 2024-06-30 07:05 | External Medical Summary | Summary of Care ---
Author Name Unknown Organization [facility] Address [address] [place] [address] Phone [phone] Care Team Providers Care Labor Relations Officer Name Role Phone Ishaan Pepe MD Primary Care Provider + Reason for Visit * Reason Onset Date Comments Medication Pre-auth 06/22/2024 Reclast Encounter Details Date Type Department Care Team ([facility] st Contact Info) Description 06/22/2024 Telephone Hematology/Oncology Treatment, [place] [address] [place] [address] Omega Galvin PA-C [facility] [place] [address] Medication Pre-auth (Reclast) Allergies Active [...] 03/08/20 24 Active Vitamin A 3 MG (21534 UT) Oral Capsule (Aquasol-A) Take 1 Capsule [...] dependence, uncomplicated 04/27/2020 Overview (07/30/2022): Managed by [facility] for opoid addiction - takes Subutex (Buprenorphine) [...] Overview (10/22/2021): 10/18 [facility] stress echo normal EF, no [...] (Oral) 973,05/25/1968,04/20/1968,02/25 Pneumococcal Conjugate Vacci ne, 20-valent ([id number]) 12/06/2021 Pneumococcal Polysaccharide PPV23 (Pneumovax) 02/15/2009 Rubella [...] no action needed Thank you, Wilson Negrete Fitness And Wellness Coordinator I Centralized Clinical Pharmacy Services (CCPS) 06/22/2024,3:55 PM * Telephone Encounter - Kinga Rodriguez RN - 06/22/2024 3:54 PM EDT Referral entered, waiting for PFC review. * Telephone Encounter - Tila Moore LPN - 06/22/2024 3:18 PM EDT Order received for Reclast [place] plan built and routed to provider Creatinine [...] State Kristal Mcclellan [address] [place] [address] [address] Ishaan Pepe MD [address] [place] [address] 07/19/2024 9:00 AM EDT Office Visit [facility] Eye [address] [address] Wilfred Reddy MD [address] [place] [address] [place] Nurse [address] [place] [address] Kristin Bridgeser [address] [address] 07/26/2024 2:30 PM EDT Office Visit Gastroenterology, [facility] [address] [place] [address] Kishore Regalado CRNP [address] [facility] [place] [address] 08/04/2024 3:40 PM EDT Office Visit Neurology [facility] [address] [place] [address] Violette Marshall MD 200 [facility] [place] [address] 09/06/2024 3:30 PM EDT Office Visit Pulmonary Medicine, [facility] [address] [facility] [place] [phone] Iker Toney MD [address] [place] [address] 09/27/2024 2:00 PM EDT Office Visit General Internal Medicine [facility] [address] [place] [address] Ishaan Pepe MD 200 [facility] [place] [address] 10/25/2024 2:40 PM EDT Office Visit Hepatology, [facility] [address] [place] [address] Kathryn Crespo DO [address] [place] [address] 12/15/2024 4:15 PM EDT Imaging Radiology [facility] 1st [facility], [place] [address] [place] [phone] 06/28/2025 2:30 PM EDT Office Visit Rheumatology, [facility] [address] [place] [address] Omega Galvin PA-C [address] [employer] [place], [place] [address] Scheduled Procedures Name Priority Associated Diagnoses Date/Ti me COLONOSCOPY FLEXIBLE PROXIMA L DIAGNOSTIC Recall History of colonic polyps Health Maintenance Due Date Last Done Comments Cologuard 12/24/2012 Sigmoidoscopy 12/24/2012 *ADVANCE DIRECTIVE NOT ON FILE 03/12/2019 Diabetic Foot Exam 11/15/2020 11/16/2019, 0 09/21/2018, 08/06/2017, Additional history exists DISCUSS TOBACCO CESSATION (REFER TO SMARTSET #1791) 06/25/2023 06/24/2022, 05/27/2022, 05/19/2022, Additional history exists [...] D LEVEL ONCE IN A LIFETIME-USE SMARTSET# 05316 Completed 06/21/2024, 06/22/2023, 02/11/2023, Additional history exists [...] this encounter Medical Devices Implanted Type Area Bit Tripoler Device Identifier Shelf Expiration Date Model / Serial / Lot Octrode, Lead Kit, 60 Cm Implanted:Qty: 1 on 06/20/2016 by Kirti Devine MD at OR [facility] N/A: Spine Lumbar [employer] 11/21/2017 3186 / [id number] / [place], Lead Kit,60 Cm Implanted:Qty: 1 on 06/20/2016 by Kirti Devine MD at OR [facility] N/A: Spine Lumbar [employer] 05/02/2018 [id number] / [id number] / [place] 1192 - [id number] Implanted:Qty: 2 on 06/20/2016 by Kirti Devine MD at OR [facility] Left: Buttocks [employer] 06/27/2017 [id number] / / [id number] Battery Proclaim Elite 5 - [id number] - [id number] Implanted:Qty: 1 on 06/20/2016 by Kirti Devine MD at OR [facility] Left: Buttocks [employer] 05/27/2018 [id number] / [id number] / documented as of this encounter Advance [...] Relationship Healthcare Agent Relationshi p Communication Jemal [place] Spouse Health Care Repr esentative (appointed verbally by patient or by statute hierarchy) Care Teams Labor Relations Officer Relationship Specialty Start Date End Date Ishaan Pepe MD 200 [place] [address] PCP - General Internal Medicine 07/18/21 documented as of this encounter
--- OUTSIDE RECORDS SUMMARY | 2024-06-30 07:05 | External Medical Summary | Summary of Care ---
Author Name Unknown Organization [facility] Address [address] [place] [address] Phone [phone] Care Team Providers Care Forest Pathologist Name Role Phone Ishaan Pepe MD Primary Care Provider + Reason for Visit * Reason Onset Date Comments Advice 06/22/2024 Other 06/22/2024 Precert Info Encounter Details Date Type Department Care Team ([facility] Contact Info) Description 06/22/[address] [address] Services, Scheduling [address] [place] [address] Advice; Other (Precert Info) Allergies Active Allergy [...] 03/08/20 24 Active Vitamin A 3 MG (43899 UT) Oral Capsule (Aquasol-A) Take 1 Capsule [...] dependence, uncomplicated 04/27/2020 Overview (07/30/2022): Managed by [facility] for opoid addiction - takes [...] adult exam 08/08/2020 12/06/2021 Overview (10/22/2021): 10/18 [facility] stress echo normal EF, no CAD, Gr [...] (Oral) 973,05/25/1968,04/20/1968,02/25 Pneumococcal Conjugate Vacci ne, 20-valent (Yhxczwy95) 12/06/2021 Pneumococcal Polysaccharide PPV23 (Pneumovax) 02/15/2009 Rubella [...] No 11/01/2022 Does the household have a [facility] health center[facility] source of income? (Household - for [...] 06/23/2024 4:22 PM EDT Per Ameena from [facility] MRA of head still need sadditional clinicals to approve. Pt has her appt tomorrow at 1pm Thank you, Nataliya Villa CPhT Blood Donor Recruiter Supervisor Centralized Clinical Pharmacy Services (CCPS) 06/23/2024, 4:22 PM * Telephone Encounter - Sonia Kinney OSA - 06/23/2024 1:09 PM EDT Both precert approvals faxed to [phone] on 06/23/24. * Telephone Encounter - Sonia Kinney OSA - 06/23/2024 10:25 AM EDT Checked on status of precert. MRI-brain is approved. MRA is still pending. Will fax both to [facility] when available. * Telephone Encounter - Mary Maloney OSA - 06/23/2024 7:57 AM EDT Radiology called and provided information for precert: NPI# [id number] Tax ID# [id number] [address] [place] [address] Ameena @ [phone] * Telephone Encounter - Sonia Kinney OSA - 06/22/2024 4:39 PM EDT Received a voicemail back with the information requested. Sent an email to HeTexted high priority. Scan just got scheduled for this Thursday06/24/24. See information below: Name: Arely Hester : 69 Study: MRI BRAIN WITHOUT CONTRAST [MRBR] MRA HEAD WO CONTRAST [MRA-BR] Date of Study: Thursday06/24/24 Location: [facility] MRI [facility] NPI #: [id number] Tax ID#: [id number] * Telephone Encounter - Sonia Kinney OSA - 06/22/2024 1:22 PM EDT Both orders faxed. Left voicemail for a call back with the information needed [facility] such as address ,phone,fax, tax id#, NPI#. * Telephone Encounter - Thuy Garcia OSA - 06/22/2024 11:34 AM EDT [facility] calling to have MRI and MRA order faxed over from Dr. Reddy. Please advise Best call [phone]- Colette or Shanelle . documented in this encounter Plan of Treatment Upcoming Encounters Date Type Department Care Team (Late st Contact Info) Description 06/29/2024 5:20 PM EDT Office Visit General Internal Medicine State Kristal Mcclellan 200 [facility] [place] [address] Ishaan Pepe MD 200 [facility] [place] [address] 07/19/2024 9:00 AM EDT [facility] [place], [address] [address] Wilfred Reddy MD [address] [place] [address] [place] Nurse [address] [place] [address] Kristin Bridgeser [address] [address] 07/26/2024 2:30 PM EDT Office Visit Gastroenterology, [facility] [address] [place] [phone] Kishore Regalado CRNP [address] [place] [address] 08/04/2024 3:40 PM EDT Office Visit Neurology [facility] [address] [place] [address] Violette Marshall MD 200 [facility] [place] [address] 09/06/2024 3:30 PM EDT Office Visit Pulmonary Medicine, [facility] [place] [phone] Iker Toney MD [address] [place] [facility] [place] [address] 09/27/2024 2:00 PM EDT Office Visit General Internal Medicine [facility] [address] [place] [address] Ishaan Pepe MD [address] [place] [address] 10/25/2024 2:40 PM EDT [facility] [address] [place] [phone] Kathryn Crespo DO [address] [place] [address] 12/15/2024 4:15 PM EDT Imaging Radiology [facility] [address] [facility] [address] [place] [phone] 06/28/2025 2:30 PM EDT Office Visit Rheumatology, [address] [place], [place] [phone] Omega Galvin PA-C [address] [employer] [place], [place] [address] Scheduled Procedures Name Priority Associated Diagnoses Date/Ti me COLONOSCOPY FLEXIBLE PROXIMA L DIAGNOSTIC Recall History of colonic polyps Health Maintenance Due Date Last Done Comments Cologuard 12/24/2012 Sigmoidoscopy 12/24/2012 *ADVANCE DIRECTIVE NOT ON FILE 03/12/2019 Diabetic Foot Exam 11/15/2020 11/16/2019, 0 09/21/2018, 08/06/2017, Additional history exists DISCUSS TOBACCO CESSATION (REFER TO SMARTSET #7060) 06/25/2023 06/24/2022, 05/27/2022, 05/19/2022, Additional history exists [...] D LEVEL ONCE IN A LIFETIME-USE SMARTSET# 36482 Completed 06/21/2024, 06/22/2023, 02/11/2023, Additional history exists [...] this encounter Medical Devices Implanted Type Area Life Coach Device Identifier Shelf Expiration Date Model / Serial / Lot Octrode, Lead Kit, 60 Cm Implanted:Qty: 1 on 06/20/2016 by Kirti Devine MD at OR [facility] N/A: Spine Lumbar [employer] 11/21/2017 3186 / [id number] / [place], Lead Kit,60 Cm Implanted:Qty: 1 on 06/20/2016 by Kirti Devine MD at OR [facility] N/A: Spine Lumbar [employer] 05/02/2018 [id number] / [id number] / [place] 1192 - [id number] Implanted:Qty: 2 on 06/20/2016 by Kirti Devine MD at OR [facility] Left: Buttocks [employer] 06/27/2017 1192ANS / / [id number] Battery Proclaim Elite 5 - [id number] - [id number] Implanted:Qty: 1 on 06/20/2016 by Kirti Devine MD at OR [facility] Left: Buttocks [employer] 05/27/2018 [id number] / [id number] / documented as of this encounter Advance [...] patient or by statute hierarchy) Care Teams Forest Pathologist Relationship Specialty Start Date End Date Ishaan Pepe MD 200 [place] [address] PCP - General Internal Medicine 07/18/21 documented as of this encounter
--- OUTSIDE RECORDS SUMMARY | 2024-06-30 07:05 | External Medical Summary | Summary of Care ---
Author Name Unknown Organization [facility] Address [address] [place] [address] Phone [phone] Care Team Providers Care Clinical Research Administrator Name Role Phone Ishaan Pepe MD Primary Care Provider + Reason for Visit * Reason Comments Rheum Follow Up Encounter Details Date Type Department Care Team ([facility] st Contact Info) Description 06/22/2024 2:00 PM EDT Office Visit Rheumatology, [address] [address] Ngozi Sherman PA-C [address] [place] [address] Other osteoporosis without current pathological fracture* Allergies Active Allergy Reactions Criticality Noted Date [...] 03/08/20 24 Active Vitamin A 3 MG (93712 UT) Oral Capsule (Aquasol-A) Take 1 Capsule [...] to MRI 1 Tablet 06/23/19 25 Active Calcium Citrate 250 MG Oral Tablet Take 2 Tablets by mouth in the morning and 2 Tablets before bedtime. 2024 Disconti nued(Med ication List Clean Up) documented as of this encounter (statuses as [...] dependence, uncomplicated 04/27/2020 Overview (07/30/2022): Managed by [facility] for opoid addiction - takes Subutex [...] adult exam 08/08/2020 12/06/2021 Overview (10/22/2021): 10/18 [facility] stress echo normal EF, no [...] (Oral) 973,05/25/1968,04/20/1968,02/25 Pneumococcal Conjugate Vacci ne, 20-valent ([id number]) 12/06/2021 Pneumococcal Polysaccharide PPV23 (Pneumovax) 02/15/2009 Rubella [...] Day Cigarettes 1 35 Smokeless Tobacco: Never Tobacco Cessation:Ready to Q uit: Not Asked; Counseling Given: Not Answered Comments:04/04/24-Smoking 5-6 cigarettes/day Alcohol Use Standard Drinks/Week [...] on file documented as of this encounter Last Filed Vital Signs Vital Sign Reading Time Taken Comments Blood Pressure 128/72 06/22/2024 1:51 PM EDT Pulse - - Temperature - - Respiratory Rate - - Oxygen Saturation - - Inhaled Oxygen Concentration - - Weight - - Height - - Body Mass Index - - documented in this encounter Functional Status * Are you [...] of Assessment Author No 06/12/2022 7:56 PM EDSushil Ling RN documented as of this encounter Mental Status * Because of a physical, mental, or emotional condition, do you have serious difficulty concentrating, remembering, or making decisions? (5 years old or older) Answer Entry Date Author No 06/12/2022 7:56 PM Sushil Naidu RN documented in this encounter Progress Notes * Ngozi Sherman PA-C - 06/22/2024 1:46 PM EDT [facility] ([facility] follow up Supervised by: Dr. Cassius Mccullough Previous Visit Plan from 06/17/23 reviewed. Reason for visit: Patient seen today for further follow-up/evaluation of osteoporosis. Bone Health Summary: Reclast 07/02/23 Risks: Falls since last [facility] visit: no Personal History of Fx since last [facility] Visit: no Medications: Current Outpatient Medications Medication Sig Dispense Refill Up4 Probiotics Womens Oral Capsule Take by mouth. Calcium Citrate 250 MG Oral Tablet Take 2 Tablets by mouth in the morning and 2 Tablets before bedtime. (Patient not taking: Reported on 04/04/2024) Buprenorphine HCl 8 MG Sublingual Tablet Sublingual (Subutex) Place 1 Tablet under the tongue 4 times a day. 90 Tablet 0 Estradiol 0.1 MG/GM Vaginal Cream (Estrace) Administer 0.2 g into the vagina once a day on Thursday, Thursday, and Thursday only. Apply periurethrally as directed. 42.5 g 1 Pantoprazole Sodium 40 MG Oral Tablet Delayed Release (Protonix) Take 1 Tablet by mouth in the morning and 1 Tablet before bedtime. 180 Tablet 3 EPINEPHrine 0.3 MG/0.3ML Injection Solution Auto-injector (Autoinjector) For a severe reaction: Inject in outer thigh following instructions on package and go to the Emergency room. 6 Each 1 Lactulose 10 GM/15ML Oral Solution (Constulose) Take 45 mL by mouth in the morning and 45 mL at noon and 45 mL before bedtime. (Patient taking differently: Take 45 mL by mouth 3 times a day as needed.) 946 mL 1 Furosemide 40 MG Oral Tablet (Lasix) Take 1 pill in the morning daily as needed for edema Ondansetron HCl 8 MG Oral Tablet (Zofran) TAKE ONE TABLET BY MOUTH EVERY 8 HOURS NEEDED FOR NAUSEA. 180 Tablet 2 Mirtazapine 30 MG Oral Tablet (Remeron) TAKE ONE TABLET BY MOUTH AT BEDTIME 90 Tablet 2 Varenicline Tartrate 1 MG Oral Tablet (Chantix) Take 1 Tablet by mouth in the morning and 1 Tablet before bedtime. 60 Tablet 0 Vitamin A 3 MG (77402 UT) Oral Capsule (Aquasol-A) Take 1 Capsule by mouth in the morning. ProAir HFA 108 (90 Base) MCG/ACT Inhalation Aerosol Solution Inhale 2 Puffs by mouth every 4 hours as needed for Wheezing. 18 g 11 Synthroid 112 MCG Oral Tablet Take 1 Tablet by mouth in the morning. (at least 30 min prior to breakfast or other meds). 90 Tablet 3 Apixaban 2.5 MG Oral Tablet (Eliquis) Take 1 Tablet by mouth in the morning and 1 Tablet before bedtime. 60 Tablet 1 LORazepam 1 MG Oral Tablet (Ativan) Take one hour prior to MRI 1 Tablet 0 No current facility-administered medications for this visit. Social History: Social History Tobacco Use Smoking status: Every Day Current packs/day: 1.00 Average packs/day: 1 pack/day for 35.0 years (35.0 ttl pk-yrs) Types: Cigarettes Smokeless tobacco: Never Tobacco comments: 04/04/24-Smoking 5-6 cigarettes/day Vaping Use Vaping status: Never Used Substance Use Topics Alcohol use: No Drug use: Yes Types: Marijuana Comment: medical marijuana card PHYSICAL EXAM: General appearance: NAD Eyes: Normal Heart: normal Lungs: normal Diagnostic Testing: Results of labs and DXA were reviewed and discussed with the patient. Labs: Component Latest Ref Rng 06/20/2024 BUN 6 - 20 mg/dL 9 CREATININE 0.5 - 1.0 mg/dL 0.8 EGFR >=60 mL/min 89 SODIUM 135 - 146 mmol/L 140 POTASSIUM 3.5 - 5.1 mmol/L 3.7 CHLORIDE 98 - 107 mmol/L 104 CO2 22 - 32 mmol/L 26 ANION GAP 7 - 15 mmol/L 10 GLUCOSE 70 - 120 mg/dL 93 Albumin 3.8 - 5.0 g/dL 3.8 AST 10 - 35 U/L 26 Alkaline Phosphatase 35 - 130 U/L 111 Bilirubin, Total <=1.2 mg/dL 0.4 CALCIUM 8.4 - 10.2 mg/dL 9.0 Protein 6.0 - 8.3 g/dL 6.5 ALT 10 - 35 U/L 13 Component Latest Ref Rng 06/22/2023 25-Hydroxy Vitamin D >19 ng/mL 39 DXA - Vertebral Fracture Assessment: Date: 06/03/2022 DXA Result: RESULTS: Lumbar spine: 0.817 gms/cm2 T-score: -2.6 Z-score: -1.5 Left total hip: 0.433 gms/cm2 T-score: -4.2 Z-score: -3.5 Assessment: Osteoporosis Plan: The following items are ordered or are in progress: 1. Education: Osteoporosis education was provided by the [facility] team (topics included disease process, DXA, calcium/vitamin D, osteoporosis medications - including administration instructions and risks/benefits, weight bearing exercise, fall prevention/safety). 2. Prevention: . Eye Examination recommended annually, as good vision may help to prevent falls . Exercise recommended: standing, walking, light lifting . Fall Prevention/Safety Education recommended and discussed . Continue calcium rich foods (goal of 3 servings daily) 3. Osteoporosis Medications : Continue 5 mg Reclast IV once yearly 4. Bone Density Testing: Due now - ordered 5. Laboratory: 25-OH Vitamin D 6. Followup: Return to [facility] clinic in 1 year Ngozi Sherman PA-C [facility] Team The patient was discussed with me. I agree with the findings and plan as documented by /Ngozi Drew in this note. Cassius Mccullough MD Rheumatology Department documented in this encounter Miscellaneous Notes * Addendum Note - Ngozi Sherman PA-C - 06/22/2024 2:56 PM EDTAddended by: NGOZI SHERMAN on: 06/22/2024 02:56 PM Modules accepted: Orders documented in this encounter Plan of Treatment Upcoming Encounters Date Type Department Care Team (Late st Contact Info) Description 06/29/2024 5:20 PM EDT Office Visit General Internal Medicine Abby Andino [place] [address] [place] [address] Ishaan Pepe MD [address] [place] [address] 07/19/2024 9:00 AM EDT Office Visit [address] [address] Wilfred Reddy MD [address] [facility] [place] [address] Carmen Bridges Nurse [address] [place] [address] Kristin Bridgeser [address] [address] 07/26/2024 2:30 PM EDT Office Visit Gastroenterology, [facility] [address] [place] [address] Kishore Regalado CRNP [address] [place] [address] 08/04/2024 3:40 PM EDT Office Visit Neurology [facility] [address] [facility] [place] [address] Violette Marshall MD [address] [facility] [place] [address] 09/06/2024 3:30 PM EDT Office Visit Pulmonary Medicine, [facility] [address] [place] [phone] Iker Toney MD [address] [place] [address] 09/27/2024 2:00 PM EDT Office Visit General Internal Medicine [facility] [address] [place] [address] Ishaan Pepe MD [address] [facility] [place] [address] 10/25/2024 2:40 PM EDT Office Visit Hepatology, [address] [address] Kathryn Crespo DO [address] [place] [address] 12/15/2024 4:15 PM EDT Imaging Radiology [address], [place] [address] [place] [phone] 06/28/2025 2:30 PM EDT Office [address], [address] [address] Ngozi Sherman PA-C [address] [facility] [place], [place] [address] Scheduled Orders Name Type Priority Associated Diagnoses Orde r Schedule DEXA SCAN/BONE MINERAL AXIAL Medical Imaging Routine Other osteoporosis without current pathological fracture Expected: 06/22/2024, Expires: 07/23/2025 Scheduled Procedures Name Priority Associated Diagnoses Date/Ti me COLONOSCOPY FLEXIBLE PROXIMA L DIAGNOSTIC Recall History of colonic polyps Health Maintenance Due Date Last Done Comments Cologuard 12/24/2012 Sigmoidoscopy 12/24/2012 *ADVANCE DIRECTIVE NOT ON FILE 03/12/2019 Diabetic Foot Exam 11/15/2020 11/16/2019, 0 09/21/2018, 08/06/2017, Additional history exists DISCUSS TOBACCO CESSATION (REFER TO SMARTSET #0758) 06/25/2023 06/24/2022, 05/27/2022, 05/19/2022, Additional history exists [...] Cancer Screening 11/25/2027 Lipid Panel 08/31/2028 09/01/2023, 06/2023, 05/26/2022, Additional history exists DTap/Tdap Vaccines [...] D LEVEL ONCE IN A LIFETIME-USE SMARTSET# 04319 Completed 06/21/2024, 06/22/2023, 02/11/2023, Additional history exists [...] this encounter Medical Devices Implanted Type Area Head Of Stock Device Identifier Shelf Expiration Date Model / Serial / Lot Snehalrode, Lead Kit, 60 Cm Implanted:Qty: 1 on 06/20/2016 by Kirti Devine MD at OR [facility] N/A: Spine Lumbar [employer] 11/21/2017 [id number] / [id number] / Octrode, Lead Kit,60 Cm Implanted:Qty: 1 on 06/20/2016 by Kirti Devine MD at OR [facility] N/A: Spine Lumbar [employer] 05/02/2018 [id number] / [id number] / [place] 1192 - [id number] Implanted:Qty: 2 on 06/20/2016 by Kirti Devine MD at OR [facility] Left: Buttocks [employer] 06/27/2017 [id number] / / [id number] Battery Proclaim Elite 5 - [id number] - [id number] Implanted:Qty: 1 on 06/20/2016 by Kirti Devine MD at OR [facility] Left: Buttocks [employer] 05/27/2018 [id number] / [id number] / documented as of this encounter Results * 25-HYDROXY VITAMIN D (06/21/2024 12:00 AM EDT) 25-Hydroxy Vitamin D 21 >19 ng/mL 06/22/2024 7:39 PM EDT [facility] [place] Venous blood specimen / Unknown Venipuncture / Unknown 06/21/2024 12:00 AM EDT 06/21/2024 12:03 AM EDT Narrative [facility] - 06/22/2024 7:39 PM EDT Deficient: <20 ng/mL Insufficient: 20-29 ng/mL Recommended/Optimum:30-50 ng/mL Vitamin D intoxication is rare. If suspicious of Vitamin D toxicity, evaluation of serum Calcium and PTH is recommended. Ngozi Sherman PA-C LAB BLOOD ORDERABLES Final Result [facility] [address] [place] [address] documented in this encounter Visit Diagnoses Diagnosis Advanced care [...] and myositis, unspecified Opioid dependence, uncomplicated (HCC) Other osteoporosis without current pathological fracture- Primary Screening mammogram for breast cancer documented in [...] patient or by statute hierarchy) Care Teams Clinical Research Administrator Relationship Specialty Start Date End Date Ishaan Pepe MD [address] [place] [address] PCP - General Internal Medicine 07/18/21 documented as of this encounter
--- OUTSIDE RECORDS SUMMARY | 2024-06-30 07:05 | External Medical Summary | Summary of Care ---
Author Name Unknown Organization [facility] Address [address] [place] [address] Phone [phone] Care Team Providers Care Reconstructive Dentist Name Role Phone Ishaan Pepe MD Primary Care Provider + Reason for Visit * Reason Comments Rheum Follow Up Encounter Details Date Type Department Care Team ([facility] st Contact Info) Description 06/22/2024 2:00 PM EDT Office Visit Rheumatology, [address] [address] Ngozi Sherman PA-C [address] [place] [address] Other osteoporosis without current pathological fracture* [...] 03/08/20 24 Active Vitamin A 3 MG (15631 UT) Oral Capsule (Aquasol-A) Take 1 Capsule [...] dependence, uncomplicated 04/27/2020 Overview (07/30/2022): Managed by [facility] for opoid addiction - takes [...] adult exam 08/08/2020 12/06/2021 Overview (10/22/2021): 10/18 [facility] stress echo normal EF, [...] (Oral) 973,05/25/1968,04/20/1968,02/25 Pneumococcal Conjugate Vacci ne, 20-valent ([id number]) 12/06/2021 Pneumococcal Polysaccharide PPV23 (Pneumovax) 02/15/2009 Rubella [...] 60 Tablet 0 Vitamin A 3 MG (05447 UT) Oral Capsule (Aquasol-A) Take 1 Capsule [...] Office Visit General Internal Medicine Abby Andino [place] [address] [place] [address] Ishaan Pepe MD [address] [place] [address] 07/19/2024 9:00 AM EDT Office Visit [address] [address] Wilfred Reddy MD [address] [facility] [place] [address] Carmen Bridges Nurse [address] [place] [address] Kristin Bridgeser [address] [address] 07/26/2024 2:30 PM EDT Office Visit Gastroenterology, [facility] [address] [place] [address] Kishore Regalado CRNP [address] [place] [address] 08/04/2024 3:40 PM EDT Office Visit Neurology [facility] [address] [facility] [address] Violette Marshall MD [address] [facility] [address] 09/06/2024 3:30 PM EDT Office Visit Pulmonary Medicine, [facility] [address] [place] [phone] Iker Toney MD [address] [place] [address] 09/27/2024 2:00 PM EDT Office Visit General Internal Medicine [facility] [address] [place] [address] Ishaan Pepe MD [address] [facility] [address] 10/25/2024 2:40 PM EDT Office Visit Hepatology, [address] [address] Kathryn Crespo DO [address] [place] [address] 12/15/2024 4:15 PM EDT Imaging Radiology [address], [place] [address] [place] [phone] 06/28/2025 2:30 PM EDT Office Visit [address]umatology, [address] [address] Ngozi Sherman PA-C [address] [facility] [place], [place] [address] Scheduled Orders Name Type Priority Associated Diagnoses [...] exists DISCUSS TOBACCO CESSATION (REFER TO SMARTSET #2488) 06/25/2023 06/24/2022, 05/27/2022, 05/19/2022, Additional history exists [...] D LEVEL ONCE IN A LIFETIME-USE SMARTSET# 50440 Completed 06/21/2024, 06/22/2023, 02/11/2023, Additional history exists [...] this encounter Medical Devices Implanted Type Area Religious Activities Director Device Identifier Shelf Expiration Date Model / Serial / Lot Snehalrode, Lead Kit, 60 Cm Implanted:Qty: 1 on 06/20/2016 by Kirti Devine MD at OR [facility] N/A: Spine Lumbar [employer] 11/21/2017 [id number] / [id number] / Octrode, Lead Kit,60 Cm Implanted:Qty: 1 on 06/20/2016 by Kirti Devine MD at OR [facility] N/A: Spine Lumbar [employer] 05/02/2018 [id number] / [id number] / [place] 1192 - [id number] Implanted:Qty: 2 on 06/20/2016 by Kirti Devine MD at OR [facility] Left: Buttocks [employer] 06/27/2017 [id number] / / [id number] Battery [employer] Elite 5 - [id number] - [id number] Implanted:Qty: 1 on 06/20/2016 by Kirti Devine MD at OR [facility] Left: Buttocks [employer] 05/27/2018 [id number] / [id number] / documented as of this encounter Results * 25-HYDROXY VITAMIN D (06/21/2024 12:00 AM EDT) 25-Hydroxy Vitamin D 21 >19 ng/mL 06/22/2024 7:39 PM EDT LAB[facility]ATORY [facility] Blood Venous blood specimen / Unknown Venipuncture / Unknown 06/21/2024 12:00 AM EDT 06/21/2024 12:03 AM EDT Narrative [facility]ORY [facility] - 06/22/2024 7:39 PM EDT Deficient: <20 ng/mL Insufficient: 20-29 ng/mL Recommended/Optimum:30-50 ng/mL Vitamin D intoxication is rare. If suspicious of Vitamin D toxicity, evaluation of serum Calcium and PTH is recommended. Ngozi Sherman PA-C LAB BLOOD ORDERABLES Final Result LAB[facility]ATORY [facility] [address] [place] [address] documented in this encounter Visit Diagnoses Diagnosis [...] patient or by statute hierarchy) Care Teams Reconstructive Dentist Relationship Specialty Start Date End Date Ishaan Pepe MD [address] [place] [address] PCP - General Internal Medicine 07/18/21 documented as of this encounter
--- OUTSIDE RECORDS SUMMARY | 2024-06-30 07:06 | External Medical Summary ---
Author Name Unknown Address Unknown Organization [id number]:LABORATORY [facility] - [place] [address] Laboratory Report Ordering Provider Test Date Status LOKESH MENENDEZ 06/21/2024 00:00:23 Final Observation Date Value Abnormality Reference (Units ) Status Troponin T 06/21/2024 00:00:23 23 Above high normal < =14 (ng/L) Final Performing Location LABORATORY [facility] - [address] [place] [address]
--- OUTSIDE RECORDS SUMMARY | 2024-06-30 07:06 | External Medical Summary ---
Author Name Unknown Address Unknown Organization K01:[facility]ORY [facility] [place] [address] [place] [address] Laboratory Report Ordering Provider Test Date Status WHIT MELVIN 06/21/2024 00:00:23 Final Deficient: <20 ng/mL
Ins ufficient: 20-29 ng/mL
Recommended/Optimum:30-50 ng/mL

Vitamin D intoxication is rare. If suspicious of Vitamin D toxicity, evaluation of serum Calcium and PTH is recommended. Observation Date Value Abnormality Reference (Units ) Status 25-OH Vitamin D total 06/21/2024 00:00:23 21 >19 (ng/mL) Final Performing Location LABORATORY C - [address] [place] [address]
--- OUTSIDE RECORDS SUMMARY | 2024-06-30 07:06 | External Medical Summary ---
Author Name Unknown Address Unknown Organization [id number]:LABORATORY [facility] - [address] [facility] [place] [address] Laboratory Report Ordering Provider Test Date Status LOKESH MENENDEZ 06/20/2024 23:44:00 Final Observation Date Value Abnormality Reference (Units ) Status Color of Urine by Auto 06/20/2024 23:44:00 Yellow Light Yellow, Yellow, Dark Yellow Final Clarity, Urine 06/20/2024 23:44:00 Clear Clear Final Glucose [Mass/volume] in Urine by Automated test strip 06/20/2024 23:44:00 Negative Negative (mg/dL) Final Bilirubin.total [Presence] in Urine by Automated test strip 06/20/2024 23:44:00 Negative Negative Final Ketones [Mass/volume] in Urine by Automated test strip 06/20/2024 23:44:00 Negative Negative (mg/dL) Final Specific gravity, Urine 06/20/2024 23:44:00 1.007 1.003-1.030 Final Hemoglobin [Presence] in Urine by Automated test strip 06/20/2024 23:44:00 Negative Negative Final pH, Urine 06/20/2024 23:44:00 6.0 5.0-7.5 (Units) Final Protein [Mass/volume] in Urine by Automated test strip 06/20/2024 23:44:00 Negative Negative (mg/dL) Final Urobilinogen [Mass/volume] in Urine by Automated test strip 06/20/2024 23:44:00 1.0 0.2, 1.0 (mg/dL) Final Nitrite [Presence] in Urine by Automated test strip 06/20/2024 23:44:00 Negative Negative Final Leukocyte esterase [Presence] in Urine by Automated test strip 06/20/2024 23:44:00 Trace Abnormal Negative Final RBC, Urine 06/20/2024 23:44:00 0-2 0-2 (/HPF) Final WBC, Urine 06/20/2024 23:44:00 0-2 0-2 (/HPF) Final Bacteria [#/area] in Urine sediment by Microscopy high power field 06/20/2024 23:44:00 0-25 0-25 (/HPF) Final CULTURE, URINE - [facility] 06/20/2024 23:44:00 Final Culture not indicated by uri nalysis results\X09\ Performing Location LABORATORY [address] [place] [address]
--- OUTSIDE RECORDS SUMMARY | 2024-06-30 07:06 | External Medical Summary | Summary of Care ---
Author Name Unknown Organization [facility] [address] [place] [address] Phone [phone] Care Team Providers Care Business Manager [employer] Name Role Phone Ishaan Pepe MD Primary Care Provider + Reason for Visit * Reason Comments Walk In Change in vision * Evaluate & Treat - Unlimited Visits (Within 3 days (urgent)) - Authorized Specialty Diagnoses / Procedures Referred By Edison jeff Referred To Contact Ophthalmology Diagnoses Visual disturbance Fabricio Velasco, DO [address] [place] [phone] Phone: tel: fax: Referral ID Status Reason Start Date Expiration Date Visits Requested Visits Authorized [id number] Authorized Specialty Services Required 06/21/[id number] Encounter Details Date Type Department Care Team (Late st Contact Info) Description 06/21/2024 3:30 PM EDT Office Visit [address] [address] Wilfred Reddy MD [address] [place] [address] Visual distortions of shape and size*; 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 Omeprazole Anaphylaxis High 01/03/2010 Tongue itchy, ear throbbing documented as of this encounter (statuses as of 06/22/2024) Medications Up4 Probiotics Womens Oral Capsule Take by mouth. Activ e Calcium Citrate 250 MG Oral Tablet Take 2 Tablets by mouth in the morning and 2 Tablets before bedtime. Active Buprenorphine HCl 8 MG Sublingual Tablet Sublingual (Subutex) Place 1 Tablet under the tongue 4 times a day. 90 Tablet 023 Active Estradiol 0.1 MG/GM Vaginal Cream (Estrace) Administer 0.2 g into the vagina once a day on Thursday, Thursday, and Thursday only. Apply periurethrally as directed. 42.5 g 1 Active Pantoprazole Sodium 40 MG Oral Tablet Delayed Release (Protonix) Take 1 Tablet by mouth in the morning and 1 Tablet before bedtime. 180 Tablet 3 04/05/19 25 6:21 PM EST Active EPINEPHrine 0.3 MG/0.3ML Injection Solution Auto-injector (Autoinjector)Ind ications:Bee sting allergy For a severe reaction: Inject in outer thigh following instructions on package and go to the Emergency room. 6 Each 1 09/07/19 24 5:20 PM EDT 024 Active Lactulose 10 GM/15ML Oral Solution (Constulose)Indic ations:Hepatic encephalopathy (HCC) Take 45 mL by mouth in the morning and 45 mL at noon and 45 mL before bedtime. 946 mL 1 Active Additional Information Patient taking differently:30 g OralTID PRN, Reported on 04/04/2024 Furosemide 40 MG Oral Tablet (Lasix)Indication s:Liver cirrhosis secondary to nonalcoholic steatohepatitis (SOTOMAYOR) (HCC),Leg edema, right Take 1 pill in the morning daily as needed for edema Active Ondansetron HCl 8 MG Oral Tablet (Zofran)Indicatio ns:Nausea TAKE ONE TABLET BY MOUTH EVERY 8 HOURS NEEDED FOR NAUSEA. 180 Tablet 2 03/28/20 24 8:20 AM EST Active Mirtazapine 30 MG Oral Tablet (Remeron) TAKE ONE TABLET BY MOUTH AT BEDTIME 90 Tablet 2 06/21/19 25 11:27 AM EDT 024 2024 Active Varenicline Tartrate 1 MG Oral Tablet (Chantix)Indicati ons:Tobacco use Take 1 Tablet by mouth in the morning and 1 Tablet before bedtime. 60 Tablet 024 Active Vitamin A 3 MG (55188 UT) Oral Capsule (Aquasol-A) Take 1 Capsule by mouth in the morning. 024 Active ProAir HFA 108 (90 Base) MCG/ACT Inhalation Aerosol SolutionIndicatio ns:Chest congestion,Acute cough Inhale 2 Puffs by mouth every 4 hours as needed for Wheezing. 18 g 11 025 Active Synthroid 112 MCG Oral TabletIndications :Acquired hypothyroidism Take 1 Tablet by mouth in the morning. (at least 30 min prior to breakfast or other meds). 90 Tablet 3 025 Active Apixaban 2.5 MG Oral Tablet (Eliquis) Take 1 Tablet by mouth in the morning and 1 Tablet before bedtime. 60 Tablet 1 025 Active LORazepam 1 MG Oral Tablet (Ativan)Indicatio ns:Anxiety Take one hour prior to MRI 1 Tablet 025 Active Methenamine Mandelate 0.5 GM Oral Tablet (Mandelamine) Take 2 Tablets by mouth in the morning and 2 Tablets in the evening. 120 Tablet 11 024 2024 Discontinued documented as of this encounter (statuses as [...] dependence, uncomplicated 04/27/2020 Overview (07/30/2022): Managed by [facility] for opoid addiction - takes Subutex [...] adult exam 08/08/2020 12/06/2021 Overview (10/22/2021): 10/18 [facility] stress echo normal EF, no [...] (Oral) 973,05/25/1968,04/20/1968,02/25 Pneumococcal Conjugate Vacci ne, 20-valent ([id number]) 12/06/2021 Pneumococcal Polysaccharide PPV23 (Pneumovax) 02/15/2009 Rubella [...] 11/01/2022 Does the household have a re lar source of income? (Household - for ages [...] documented in this encounter Progress Notes * Wilfred Reddy MD - 06/21/2024 4:37 PM EDT 06/21/2024 OPHTHALMOLOGY CARE CLINIC NOTE HPI: Arely Hester is a 58 year old pt who presents for ACC History as below. IN addition, has been told in the past that she has been told her has migraines and complex migraines. States vision is otherwise stable. Past Ocular History: Glasses Eye Medications: As below ROS: Refer to HPI, otherwise negative unless noted. Nursing Notes: Sheyla Adam TECH 06/21/24 1703 Signed Arely Hester is a 58 year old female who presents for change in vision. Last Visit: Visit date not found (in office), Visit date not found (telemedicine) She currently states that she sees bright zig zags, unsure which eye, that stay in her vision for afew minutes. Lines stay in the same spot (do not move around) and started around a week ago, occur daily. She has some new floaters, black dots that she noticed around a week ago also. She states hervision looks like she is looking through a shadow/haze, only present OD superiorly. Her eyes also often feel tired. She does have prism in her glasses due to seeing 1.5 (not double) with both eyes open, this resolves when she closes one eye. No eye pain, burning, itching, or redness. Pt presented to the ER last night due to leg numbness and the visual disturbances. Her balance has been off lately. Referred to our ACC. Are you diabetic? S/p gastric bypass. Do you check your sugar daily? NO. Last Hemoglobin A1C: Lab Results Component Value Date/Time HGBA1C 5.9 (H) 03/10/2024 12:52 PM HGBA1C 5.8 (H) 09/01/2023 04:30 PM HGBA1C 4.9 05/26/2022 10:30 AM HGBA1C 5.8 (H) 04/27/2020 02:40 PM HGBA1C 5.7 (H) 12/30/2019 03:42 PM HGBA1C 5.2 10/19/2019 02:04 PM Current Ophthalmic Medications: None Referred by: ER Vision, Tonometry, current glass prescription and pupil check if done can be found in the ophth exam COMPREHENSIVE OCULAR HISTORY Any history in yourself or blood related family of: -Diabetes- Self and Family -Diabetic Retinopathy- No -High Blood Pressure- Family -Heart Disease- Family -Thyroid Disease- Self and Family -Blindness- No -Macular Degeneration- No -Retinal Detachment- No -Glaucoma/Pressure in the Eye- No -Chronic Problem Headaches or Migraines- Family -Have you ever had any major surgery or serious injury of or around the eyes- no -Are your eyes chronically- Seasonal Allergies -Do you smoke- Yes. How much: less than 1pack/day Past Medical History: Diagnosis Date Acute deep vein thrombosis (DVT) of femoral vein of right lower extremity ([facility]) BMI 36.0-36.9,adult 09/02/2010 Chronic rhinitis COPD, severity to be determined ([facility]) 06/18/2011 Degeneration of cervical intervertebral disc mod disc protrusion C6-7 Diaphragmatic hernia Fatty liver disease, nonalcoholic Hypothyroidism Idiopathic peripheral neuropathy Impaired fasting glucose 01/02/2020 Liver cirrhosis secondary to nonalcoholic steatohepatitis (SOTOMAYOR) ([facility]) Lung nodule MEDICATION USE AGREEMENT 01/23/2009 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 Opioid dependence, uncomplicated (HCC) Osteoporosis Peptic ulcer without hemorrhage or perforation but with obstruction (HCC) 10/06/2016 Postlaminectomy syndrome, lumbar severe multilevel DDD popeye L3-5, large disc protrusion at L5-S1 S/P gastric bypass Sacral wound 06/12/2022 Subacute pulmonary embolism (HCC) Subjective tinnitus Thoracic and lumbosacral neuritis Vertigo Current Outpatient Medications Medication Sig Dispense Refill LORazepam 1 MG Oral Tablet (Ativan) Take one hour prior to MRI 1 Tablet 0 Apixaban 2.5 MG Oral Tablet (Eliquis) Take 1 Tablet by mouth in the morning and 1 Tablet before bedtime. 60 Tablet 1 Synthroid 112 MCG Oral Tablet Take 1 Tablet by mouth in the morning. (at least 30 min prior to breakfast or other meds). 90 Tablet 3 ProAir HFA 108 (90 Base) MCG/ACT Inhalation Aerosol Solution Inhale 2 Puffs by mouth every 4 hours as needed for Wheezing. 18 g 11 Vitamin A 3 MG (65278 UT) Oral Capsule (Aquasol-A) Take 1 Capsule by mouth in the morning. Varenicline Tartrate 1 MG Oral Tablet (Chantix) Take 1 Tablet by mouth in the morning and 1 Tablet before bedtime. 60 Tablet 0 Mirtazapine 30 MG Oral Tablet (Remeron) TAKE ONE TABLET BY MOUTH AT BEDTIME 90 Tablet 2 Ondansetron HCl 8 MG Oral Tablet (Zofran) TAKE ONE TABLET BY MOUTH EVERY 8 HOURS NEEDED FOR NAUSEA. 180 Tablet 2 Furosemide 40 MG Oral Tablet (Lasix) Take 1 pill in the morning daily as needed for edema Lactulose 10 GM/15ML Oral Solution (Constulose) Take 45 mL by mouth in the morning and 45 mL at noon and 45 mL before bedtime. (Patient taking differently: Take 45 mL by mouth 3 times a day as needed.) 946 mL 1 EPINEPHrine 0.3 MG/0.3ML Injection Solution Auto-injector (Autoinjector) For a severe reaction: Inject in outer thigh following instructions on package and go to the Emergency room. 6 Each 1 Pantoprazole Sodium 40 MG Oral Tablet Delayed Release (Protonix) Take 1 Tablet by mouth in the morning and 1 Tablet before bedtime. 180 Tablet 3 Estradiol 0.1 MG/GM Vaginal Cream (Estrace) Administer 0.2 g into the vagina once a day on Thursday, Thursday, and Thursday only. Apply periurethrally as directed. 42.5 g 1 Buprenorphine HCl 8 MG Sublingual Tablet Sublingual (Subutex) Place 1 Tablet under the tongue 4 times a day. 90 Tablet 0 Calcium Citrate 250 MG Oral Tablet Take 2 Tablets by mouth in the morning and 2 Tablets before bedtime. (Patient not taking: Reported on 04/04/2024) Up4 Probiotics Womens Oral Capsule Take by mouth. No current facility-administered medications for this visit. Past Surgical History: Procedure Laterality Date BREAST BIOPSY Right benign BREAST BIOPSY Left benign BREAST BIOPSY Right benign DELIVERY x 1 COLONOSCOPY, DIAGNOSTIC (RECTUM) 08/21/2017 adenomatous polyp, poor prep, repeat/COLONOSCOPY FLEXIBLE PROXIMAL DIAGNOSTIC performed by Alice Cotton MD at [facility] COLONOSCOPY, DIAGNOSTIC (RECTUM) 06/29/2018 poor prep, repeat / COLONOSCOPY FLEXIBLE PROXIMAL DIAGNOSTIC performed by Alice Cotton MD at [facility] COLONOSCOPY, DIAGNOSTIC (RECTUM) 06/30/2018 biopsies show hyperplastic polyps/COLONOSCOPY FLEXIBLE PROXIMAL DIAGNOSTIC performed by Deandra Caballero MD at [facility] COLONOSCOPY, DIAGNOSTIC (RECTUM) N/A 11/24/2022 hemorrhoids/recall 5 years/COLONOSCOPY FLEXIBLE PROXIMAL DIAGNOSTIC performed by Mark Baptiste DO at OR [facility] EGD, FLEXIBLE, DIAGNOSTIC 05/14/2017 erosive gastropathy, duodenitis/ESOPHAGOGASTRODUODENOSCOPY (EGD), FLEXIBLE, TRANSORAL, DIAGNOSTIC performed by Alice Cotton MD at [facility] EGD, FLEXIBLE, DIAGNOSTIC 08/21/2017 mild gastritis/ESOPHAGOGASTRODUODENOSCOPY (EGD), FLEXIBLE, TRANSORAL, DIAGNOSTIC performed by Alice Cotton MD at [facility] EGD, FLEXIBLE, DIAGNOSTIC N/A 04/28/2018 ESOPHAGOGASTRODUODENOSCOPY (EGD), FLEXIBLE, TRANSORAL, DIAGNOSTIC performed by Agata Costa OR [facility] EGD, FLEXIBLE, DIAGNOSTIC 06/29/2018 GJ inflammation & severe stenosis, repeat 2 wks/ESOPHAGOGASTRODUODENOSCOPY (EGD), FLEXIBLE, TRANSORAL, DIAGNOSTIC performed by Alice Cotton MD at [facility] EGD, FLEXIBLE, DIAGNOSTIC 07/14/2018 anastomotic stenosis, repeat 2 wks/ESOPHAGOGASTRODUODENOSCOPY (EGD), FLEXIBLE, TRANSORAL, DIAGNOSTIC performed by Alice Cotton MD at [facility] EGD, FLEXIBLE, DIAGNOSTIC 07/28/2018 normal/ESOPHAGOGASTRODUODENOSCOPY (EGD), FLEXIBLE, TRANSORAL, DIAGNOSTIC performed by Alice Cotton MD at [facility] EGD, FLEXIBLE, DIAGNOSTIC 10/21/2018 normal bx/ESOPHAGOGASTRODUODENOSCOPY (EGD), FLEXIBLE, TRANSORAL, DIAGNOSTIC performed by Deandra Caballero MD at [facility] EGD, FLEXIBLE, DIAGNOSTIC N/A 05/13/2019 ESOPHAGOGASTRODUODENOSCOPY (EGD), FLEXIBLE, TRANSORAL, DIAGNOSTIC performed by Filiberto Haile [facility] EGD, FLEXIBLE, DIAGNOSTIC 01/27/2020 gastritis / ESOPHAGOGASTRODUODENOSCOPY (EGD), FLEXIBLE, TRANSORAL, DIAGNOSTIC performed by Deandra Caballero MD at [facility] EGD, FLEXIBLE, DIAGNOSTIC 07/18/2021 normal / ESOPHAGOGASTRODUODENOSCOPY (EGD), FLEXIBLE, TRANSORAL, DIAGNOSTIC performed by Nikko Martino MD at [facility] EGD, FLEXIBLE, DIAGNOSTIC N/A 11/24/2022 normal/ESOPHAGOGASTRODUODENOSCOPY (EGD), FLEXIBLE, TRANSORAL, DIAGNOSTIC performed by Mark Baptiste DO at OR [facility] EGD, FLEXIBLE, TRANSENDOSCOPIC DILATION <30MM N/A 07/07/2018 ESOPHAGOGASTRODUODENOSCOPY (EGD), FLEXIBLE, TRANSORAL, BALLOON DILATION LESS THAN 30MM performed byJose E Callahan MD at [facility] EGD, FLEXIBLE,W/ENDOSCOPIC US 09/05/2016 fatty liver, gastric & duodenal ulcers, normal bx, repeat EGD 2 mo/[facility] EVAL NEUROSTIM PULSE GEN, W/ REPROGRAM N/A 04/18/2016 NEUROSTIMULATOR PULSE GENERATOR/ TRANSMITTER, WITH INTRAOPERATIVE OR SUBSEQUENT PROGRAMMING performed by Kirti Devine MD at OR [facility] EVAL NEUROSTIM PULSE GEN, W/ REPROGRAM N/A 06/20/2016 NEUROSTIMULATOR PULSE GENERATOR/ TRANSMITTER, WITH INTRAOPERATIVE OR SUBSEQUENT PROGRAMMING performed by Kirti Devine MD at OR [facility] IMPLANT EPIDURAL NEUROELECTRODES N/A 04/18/2016 PERCUTANEOUS IMPLANTATION NEUROSTIMULATOR EPIDURAL performed by Kirti Devine MD at OR [facility] IMPLANT EPIDURAL NEUROELECTRODES N/A 06/20/2016 PERCUTANEOUS IMPLANTATION NEUROSTIMULATOR EPIDURAL performed by Kirti Devine MD at OR [facility] IMPLANT SPINAL NEURORECEIVER N/A 06/20/2016 INSERTION OR REPLACEMENT SPINAL NEUROSTIMULATOR GENERATOR performed by Kirti Devine MD at OR [facility] IMPLANT SPINAL NEURORECEIVER Left 08/09/2020 INSERTION OR REPLACEMENT SPINAL NEUROSTIMULATOR GENERATOR performed by Victor Manuel Scott MD at OR [facility] INFORMATION breast surgery x2 INFORMATION back surgery x2 LAPAROSCOPE PROCEDURE, LIVER N/A 04/28/2018 UNLISTED LAPAROSCOPIC PROCEDURE LIVER performed by Jose E Callahan MD at [facility] LAPAROSCOPIC GASTRIC BYPASS/BAKARI-EN-Y N/A 04/28/2018 LAPAROSCOPIC GASTRIC RESTRICTIVE BYPASS BAKARI EN Y performed by Jose E Callahan MD at [facility] LUMBAR HEMILAMINECTOMY L4-5 in and L3-4 in OTHER PERIPHERAL NERVE NEUROPLASTY, ARM/LEG Right 03/31/2019 NEUROPLASTY MAJOR PERIPHERAL NERVE ARM OR LEG performed by Elmer Sanford MD at OR [facility] REMOVAL OF APPENDIX REMOVAL OF OVARY(S) 2007 Oopherectomy, Each removed seperately REMOVAL OF TONSILS, UNDER AGE 12 REMOVE GALLBLADDER REPAIR INITIAL INCISIONAL OR VENTRAL HERNIA; REDUCIBLE umbilical hernia repaired at the same time, mesh TOTAL ABD HYSTERECTOMY W/WO REMOVAL OF TUBE(S) 1994 for dysplasia ([facility]) Base Eye Exam Visual Acuity (Snellen - Linear) Right Left Dist cc 20/50 +1 20/30 +2 Dist ph cc 20/20 -1 Correction: Glasses Tonometry (Non-contact air puff, 4:56 PM) Right Left Pressure 15 14 Pupils Pupils Dark Light Shape React APD Right PERRL 5 3 Round Brisk None Left PERRL 4.5 3 Round Slow None Visual Leach (Counting fingers) Right Left Full Full Extraocular Movement Right Left Full Full Neuro/Psych Oriented x3: Yes Mood/Affect: Normal Dilation Both eyes: 2.5% Phenylephrine, 0.5% Proparacaine, 1.0% Mydriacyl @ 5:01 PM Patient cautioned that effects of dilation may last 2-7 hours dependant upon individual reaction. It was discussed that driving while dilated is not recommended. [facility] Additional Tests Keratometry (Automated) K1 [place] K2 [place] Right 44.25 71 44.75 161 Left 44.50 92 45.50 2 Slit Lamp and Fundus Exam Slit Lamp Exam Right Left Lids/Lashes Normal Normal Conjunctiva/Sclera White and quiet White and quiet Cornea 1+ PEE Clear Anterior Chamber Deep and quiet Deep and quiet [place] PD Lens 1+ NS 1+ NS Anterior Vitreous Normal Normal Fundus Exam Right Left Disc Tr nasal elevation? Tr nasal elevation? C/D Ratio 0.1 0.1 Macula Normal Normal Vessels Normal Normal Periphery Normal Normal Refraction Wearing Rx Sphere Cylinder [place] Add Right -4.25 +1.00 009 +2.00 Left -4.50 +1.25 180 +2.00 Age: 1-2 yrs Type: PAL Pt states she has prism, unsure if in this pair of glasses or her other pair Manifest Refraction (Auto) Sphere Cylinder [place] Dist [place] Right -3.00 +1.00 178 20/20 Left -4.00 +2.00 001 20/20 Nursing notes reviewed. CTA Head/Neck 06/21/24 IMPRESSION 1. 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 There is enhancement of the distal P2 vessels, diminished on the left. Evaluation limited by venous contamination. Recommend further evaluation with noncontrast MRI of the brain and MR angiogram of the head. 2. No significant stenosis of the cervical carotid or vertebral arteries. 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 Has been managing with Tylenol which has been helping. Also describing many otherneurologic symptoms such as dizziness, disorientation, memory issues. - Ocular exam today largely unremarkable, there is some trace nerve elevation nasally OU but no obscuration of vessels or appreciable disc edema so suspect this is physiologic and in any case it would not explain her symptoms. - Given her self-reported history of complex migraine, suspect this is likely ocular migraine or migraine with aura - However, CTA from the ED last night did reveal bilateral DITCH WORKER stenosis, it is possible that hypotensive episodes in this context could trigger visual and neurologic symptoms. Given she has cirrhosisher hemodynamic stability may vary. - Would benefit from neurology or vascular neurology evaluation both for the suspected headache disorder as well as for evaluation of DITCH WORKER stenosis - Has neurology appt 08/04/24, can try to move this up a bit if possible - MRI/MRA brain noncon - Needs to be done at [facility] in [place] as pt has a spinal stimulator - Return for OCT - Return precautions discussed RTC 4-6 weeks or sooner prn. Patient discussed with Dr. Monreal. A/P explained, patient verbalized understanding. Patient understands to f/u immediately with questions, concerns, or any ophthalmic issues. Wilfred Reddy MD PGY2 Ophthalmology 06/21/2024 6:09 PM documented in this encounter Nursing Notes * Sheyla Adam TECH - 06/21/2024 4:36 PM EDT Arely Hester is a 58 year old female who presents for change in vision. Last Visit: Visit date not found (in office), Visit date not found (telemedicine) She currently states that she sees bright zig zags, unsure which eye, that stay in her vision for afew minutes. Lines stay in the same spot (do not move around) and started around a week ago, occur daily. She has some new floaters, black dots that she noticed around a week ago also. She states hervision looks like she is looking through a shadow/haze, only present OD superiorly. Her eyes also often feel tired. She does have prism in her glasses due to seeing 1.5 (not double) with both eyes open, this resolves when she closes one eye. No eye pain, burning, itching, or redness. Pt presented to the ER last night due to leg numbness and the visual disturbances. Her balance has been off lately. Referred to our ACC. Are you diabetic? S/p gastric bypass. Do you check your sugar daily? NO. Last Hemoglobin A1C: Lab Results Component Value Date/Time HGBA1C 5.9 (H) 03/10/2024 12:52 PM HGBA1C 5.8 (H) 09/01/2023 04:30 PM HGBA1C 4.9 05/26/2022 10:30 AM HGBA1C 5.8 (H) 04/27/2020 02:40 PM HGBA1C 5.7 (H) 12/30/2019 03:42 PM HGBA1C 5.2 10/19/2019 02:04 PM Current Ophthalmic Medications: None Referred by: ER Vision, Tonometry, current glass prescription and pupil check if done can be found in the ophth exam COMPREHENSIVE OCULAR HISTORY Any history in yourself or blood related family of: -Diabetes- Self and Family -Diabetic Retinopathy- No -High Blood Pressure- Family -Heart Disease- Family -Thyroid Disease- Self and Family -Blindness- No -Macular Degeneration- No -Retinal Detachment- No -Glaucoma/Pressure in the Eye- No -Chronic Problem Headaches or Migraines- Family -Have you ever had any major surgery or serious injury of or around the eyes- no -Are your eyes chronically- Seasonal Allergies -Do you smoke- Yes. How much: less than 1pack/day documented in this encounter Plan of Treatment Upcoming Encounters Date Type Department Care Team (Late st Contact Info) Description 06/22/2024 2:00 PM EDT Office Visit Rheumatology, [address] [phone] Omega Galvin PA-C [address] [place] [address] [place] [address] 07/26/2024 2:30 PM EDT Office Visit Gastroenterology, [facility] [address] [place] [phone] Kishore Regalado CRNP [address] [place] [address] 08/04/2024 3:40 PM EDT Office Visit Neurology [facility] [address] [facility] [place] [address] Violette Marshall MD [address] [facility] [place] [address] 09/06/2024 3:30 PM EDT Office Visit Pulmonary Medicine, [facility] [address] [place] [phone] Iker Toney MD [address] [place] [address] 09/27/2024 2:00 PM EDT Office Visit General Internal Medicine [facility] [address] [facility] [place] [address] Ishaan Pepe MD [address] [facility] [place] [address] 10/25/2024 2:40 PM EDT Office Visit Hepatology, [address] [phone] Kathryn Crespo DO [address] [place] [address] 12/15/2024 4:15 PM EDT Imaging Radiology [facility] [address] [place] [phone] Scheduled Orders Name Type Priority Associated Diagnoses Orde r Schedule MRI BRAIN WITHOUT CONTRAST Medical Imaging Routine Visual distortions of shape and size 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 Expected: 06/21/2024, Expires: 07/22/2025 MRA HEAD WO CONTRAST Medical Imaging Routine Visual distortions of shape and size 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 Expected: 06/21/2024, Expires: 07/22/2025 Scheduled Procedures Name Priority Associated Diagnoses Date/Ti [...] D LEVEL ONCE IN A LIFETIME-USE SMARTSET# [id number] Completed 06/22/2023, 02/11/2023, 08/20/2022, Additional history exists Lung Cancer Screening Completed [...] this encounter Medical Devices Implanted Type Area Supervisor Riprap Placing Device Identifier Shelf Expiration Date Model / Serial / Lot Octrode, Lead Kit, 60 Cm Implanted:Qty: 1 on 06/20/2016 by Kirti Devine MD at OR [facility] N/A: Spine Lumbar [employer] 11/21/2017 [id number] / [id number] / Octrode, Lead Kit,60 Cm Implanted:Qty: 1 on 06/20/2016 by Kirti Devine MD at OR [facility] N/A: Spine Lumbar [employer] 05/02/2018 [id number] / [id number] / Renick 1192 - [id number] Implanted:Qty: 2 on 06/20/2016 by Kirti Devine MD at OR [facility] Left: Buttocks [employer] 06/27/2017 [id number] / / [id number] Battery [employer]claim Elite 5 - [id number] - [id number] Implanted:Qty: 1 on 06/20/2016 by Kirti Devine MD [facility] [facility] Left: Buttocks [facility] 05/27/2018 [id number] / [id number] / documented as of this encounter Visit [...] and myositis, unspecified Opioid dependence, uncomplicated (HCC) Visual distortions of shape and size- Primary 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 Unspecified cerebral artery occlusion without mention of cerebral infarction Screening mammogram for breast cancer documented in [...] patient or by statute hierarchy) Care Teams [employer] Relationship Specialty Start Date End Date Ishaan Pepe MD [address] [place] [address] PCP - General Internal Medicine 07/18/21 documented as of this encounter
--- OUTSIDE RECORDS SUMMARY | 2024-06-30 07:06 | External Medical Summary | Summary of Care ---
Author Name Unknown Organization [facility] Address [address] [place] [address] Phone [phone] Care Team Providers Care Maid Housekeeper Name Role Phone Ishaan Pepe MD Primary Care Provider + Reason for Referral * Evaluate & Treat - Unlimited Visits (Within 3 days (urgent)) - Authorized Specialty Diagnoses / Procedures Referred By Edison jeff Referred To Contact Ophthalmology Diagnoses Visual disturbance Fabricio Velasco DO [address] [place] [address] Phone: tel: fax: Referral ID Status Reason Start Date Expiration Date Visits Requested Visits Authorized [id number] Authorized Specialty Services Required 06/21/2024 [id number] Question Answer Referral Priority Within 3 days (urgent) Where should this appointment be scheduled? [facility] Referring for: Ophthalmology Conditions Ophthalmology Conditions Acute Conditions (i.e. injury, vision loss, stroke, papilledema, etc.) Specific Acute Condition Floaters/Flashes/Curtain Comments Discharge Order * Evaluate & Treat - Unlimited Visits (Within 3 days (urgent)) - Authorized Specialty Diagnoses / Procedures Referred By Edison jeff Referred To Contact Neurology Diagnoses Visual disturbance Fabricio Velasco DO [address] [place] [address] Phone: tel: fax: Referral ID Status Reason Start Date Expiration Date Visits Requested Visits Authorized [id number] Authorized Specialty Services Required 06/21/2024 [id number] Question Answer Referral Priority Within 3 days (urgent) Where should this appointment be scheduled? [facility] This patient already has care established with Neurology. Do not place this order. Please use Ask A Doc to expedite care. Acknowledge Is this referral being placed for insurance purposes ONLY No, patient needs appointment [facility] NEUROLOGY REFERRAL QUESTIONS Other Conditions Comments Has a visual disturbance and vascular abnormality on CT Discharge Order Reason for Visit * Reason Comments Numbness Neuorological Problem * Auth/Cert Specialty Diagnoses / Procedures Referred By Contac t Referred To Contact [place] [address] [place] [address] Phone: tel:[phone] [facility] Emergency Department ([facility]) [address] [place] [address] Phone: tel: fax: Referral ID Status Reason Start Date Expiration Date Visits Re quested Visits Authorized [id number] Encounter Details Date Type Department Care Team (Late st Contact Info) Description 06/20/2024 9:56 PM EDT - 06/21/2024 4:[address] [facility] Emergency Department ([facility]) [address] [place] [id number] Fabricio Velasco DO [address] [place] [phone] Visual disturbance (Primary Dx); SOB (shortness of breath) Discharge Disposition: Home - Self Care Allergies Active Allergy Reactions Criticality Noted Date [...] Each 1 09/07/19 24 5:20 PM EDT Active Lactulose 10 GM/15ML Oral Solution (Constulose)Indic [...] and 1 Tablet before bedtime. 60 Tablet 12/10/2 024 Active Vitamin A 3 MG (56533 UT) Oral Capsule (Aquasol-A) Take 1 Capsule [...] dependence, uncomplicated 04/27/2020 Overview (07/30/2022): Managed by [facility] for opoid addiction - takes Subutex [...] Overview (10/22/2021): 10/18 [facility] stress echo normal EF, no CAD, Gr [...] (Oral) 973,05/25/1968,04/20/1968,02/25 Pneumococcal Conjugate Vacci ne, 20-valent ([id number]) 12/06/2021 Pneumococcal Polysaccharide PPV23 (Pneumovax) 02/15/2009 Rubella [...] Sign Reading Time Taken Comments Blood Pressure 144/86 06/21/2024 3:42 AM EDT Pulse 76 06/21/2024 3:42 AM EDT Temperature 36.2 °C (97.2 °F) 06/20/2024 9:53 PM ED T Respiratory Rate 18 06/21/2024 3:42 AM EDT Oxygen Saturation 98% 06/20/2024 11:55 PM EDT Inhaled Oxygen Concentration - - Weight 65.8 kg (145 lb) 06/20/2024 9:53 PM EDT Height 160 cm (5' 3") 06/20/2024 9:53 PM EDT Body Mass Index 25.69 06/20/2024 9:53 PM EDT documented in this encounter Functional Status * [...] Sushil Arcos RN documented in this encounter Discharge Instructions * Discharge Instructions* Fabricio Velasco, - 06/21/2024 3:50 AM EDT You were seen and evaluated for visual disturbance and other symptoms. Please follow the instructions below: Follow-up with PCP on blood count recheck Neurology/Ophthalmology referrals referrals for follow-up Continue anticoagulation Consider echocardiogram or other heart testing as indicated the PCP as well Watch for signs of bloody/black stool, blood in the urine, vaginal bleeding, etc. Please read the instructions below regarding your care: Please call and/or follow up with your Primary Care Physician (PCP) in the next 3 day(s) with additional concerns. If you do not have a Primary Care Physician, you may call [facility] appointments at [phone] or [phone]. Return to the Emergency Department or seek medical attention if you notice any change or worsening of your condition or any of the following problems: Fever greater 100.4, visual disturbance, speaking difficulty, numbness tingling or weakness that has worsening/stroke-like symptoms, fall/injury, chest pain/syncope documented in this encounter ED Notes * Chrissy Rendon RN - 06/20/2024 9:53 PM EDT Pt reports for a week she is having "zig zagging in eyes, can't see right. Today I got dizzy and also had head pain." Pt also reports that her bilateral lower legs are usually numb but lately its worse. She also wants checked for UTI. Pt takes eliquis. Was decreased a week ago. She was only taking it once a day. documented in this encounter Miscellaneous Notes * Pt Handout (on AVS) - Fabricio Velasco DO - 06/21/2024 3:52 AM EDT Images from the original note were not included. [id number] Self-Care for Headaches Most headaches aren't serious and can be relieved with self-care. But some headaches may be a sign of another health problem like eye trouble or high blood pressure. To find the best treatment, learnwhat kind of headaches you get. For tension headaches, self-care will usually help. To treat migraines, ask your healthcare provider for advice. It's also possible to get both tension and migraine headaches. Self-care involves relieving the pain and preventing headache "triggers" if you can. Ways to reduce pain and tension Try these steps: · Apply a cold compress or ice pack to the pain site. · Drink fluids. If nausea makes it hard to drink, try sucking on ice. · Rest. Protect yourself from bright light and loud noises. · Calm your emotions by imagining a peaceful scene. · Massage tight neck, shoulder, and head muscles. · To relax muscles, soak in a hot bath or use a hot shower. Use medicines Aspirin or other jhwb-utn-ighqphr (OTC) pain medicines, such as ibuprofen and acetaminophen, can relieve headache. Remember: Never give aspirin to anyone 18 years old or younger because of the risk of getting Yaquelin syndrome. Use pain medicines only when needed. Certain prescription and OTC medicinescan lead to rebound headaches if they are taken too often. Check with your healthcare provider or pharmacist about your medicines. Track your headaches Keeping a headache diary can help you and your healthcare provider identify what's causing your headaches: · Note when each headache happens. · Identify your activities and the foods you've eaten 6 to 8 hours before the headache began. · Look for any trends or "triggers." · Bring the information to your next medical appointment. Signs of tension headache Any of the following can be signs: · Dull pain or feeling of pressure in a tight band around your head · Pain in your neck or shoulders · Headache without a definite beginning or end · Headache after an activity, such as driving or working on a computer Signs of migraine Any of the following can be signs: · Throbbing pain on one or both sides of your head · Nausea or vomiting · Extreme sensitivity to light, sound, and smells · Bright spots, flashes, or other visual changes · Pain or nausea so severe that you can't continue your daily activities When to call your healthcare provider Call your healthcare provider if any of the following occur: · A headache that lingers after a recent injury or bump to the head · A headache that lasts for more than 3 days · Frequent headaches, especially in the morning Get medical care right away if you have: · A headache along with slurred speech, changes in your vision, or numbness or weakness in your arms or legs · Headaches with seizures · A fever with a stiff neck or pain when you bend your head toward your chest · A headache that you would call "the worst headache you have ever had" or a severe, persistent headache that gets worse or doesn't get better with treatment Last Reviewed Date: 2022 00:00:00 © [employer]. All rights reserved. This information is not intended as a substitute for professional medical care. Always follow your healthcare professional's instructions. * Communication - Lake Christianson MD - 06/21/2024 2:08 AM EDT Telestroke Communication Note: Paged by ED provider, Dr. Velasco, regarding patient presenting with one week of intermittent visual phenomena and headaches with no associated vision loss or diplopia. Patient is reported to be at neurologic baseline, and describes seeing bright lights in one or both eyes for no more than a few minutes at a time. CTA Head/Neck reviewed showing no evidence of acute ischemia, hemorrhage or mass effect. Bilateral distal P2/3 segments are poorly visualized, but this is potentially artifactual in nature. Positive visual phenomena would otherwise not be explained by anything seen on CT, and is less likely to be attributable to ischemia/hypoperfusion. Patient is further more on long-term anticoagulation and would not be a candidate for any stroke intervention at this point. Follow up with Neuro-ophto in outpatient setting is reasonable, at which time need for MRI can be considered. I would also recommend conservative medical management for possible migraine headache with visual aura. documented in this encounter Plan of Treatment Upcoming Encounters Date Type Department Care Team (Late st Contact Info) Description 06/22/2024 2:00 PM EDT Office Visit Rheumatology, [address] [place] [id number] Omega Galvin PA-C [address] [facility] [place] [address] 07/26/2024 2:30 PM EDT Office Visit Gastroenterology, [facility] [place] [address] [place] [phone] Kishore Regalado CRNP [address] [place] [address] 08/04/2024 3:40 PM EDT Office Visit Neurology [facility] [address] [facility] [place], [place] [address] Violette Marshall MD [address] [facility] [place], [place] [address] 09/06/2024 3:30 PM EDT Office Visit Pulmonary Medicine, [facility] [address] [place] [phone] Iker Toney MD [address] [place] [facility] [place] [address] 09/27/2024 2:00 PM EDT Office Visit General Internal Medicine [facility] [address] [facility] [place], [place] [address] Ishaan Pepe MD [address] [facility] [place], [place] [address] 10/25/2024 2:40 PM EDT Office Visit Hepatology, [address] [phone] Kathryn Crespo DO [address] [place] [address] 12/15/2024 4:15 PM EDT Imaging Radiology [facility] [address] [facility] [address] [place] [phone] Scheduled Procedures Name Priority Associated Diagnoses Date/Ti me COLONOSCOPY FLEXIBLE PROXIMA L DIAGNOSTIC Recall History of colonic polyps Scheduled Referrals Name Type Priority Associated Diagnoses Orde r Schedule ADULT NEUROLOGY REFERRAL OP Referral Within 3 days (urgent) Visual disturbance Ordered: 06/21/2024 ADULT/PEDS OPHTHALMOLOGY/OPTOM ETRY REFERRAL OP Referral Within 3 days (urgent) Visual disturbance Ordered: 06/21/2024 Health Maintenance Due Date Last Done Comments [...] D LEVEL ONCE IN A LIFETIME-USE SMARTSET# 06190 Completed 06/22/2023, 02/11/2023, 08/20/2022, Additional history exists [...] this encounter Medical Devices Implanted Type Area Button Sewer Hand Device Identifier Shelf Expiration Date Model / Serial / Lot Octrode, Lead Kit, 60 Cm Implanted:Qty: 1 on 06/20/2016 by Kirti Devine MD at OR [facility] N/A: Spine Lumbar [employer] 11/21/2017 [id number] / [id number] / Octrode, Lead Kit,60 Cm Implanted:Qty: 1 on 06/20/2016 by Kirti Devine MD at OR [facility] N/A: Spine Lumbar [employer] 05/02/2018 [id number] / [id number] / [place] 1192 - [id number] Implanted:Qty: 2 on 06/20/2016 by Kirti Devine MD at OR [facility] Left: Buttocks [employer] 06/27/2017 [id number] / / [id number] Battery [employer] Elite 5 - [id number] - [id number] Implanted:Qty: 1 on 06/20/2016 by Kirti Devine MD at OR [facility] Left: Buttocks [employer] 05/27/2018 [id number] / [id number] / documented as of this encounter Procedures Procedure Name Priority Date/Time Associated Diagnosis Comments TROPONIN T, HIGH SENSITIVITY STAT 06/21/2024 12:00 AM EDT URINALYSIS, REFLEX TO CULTURE STAT 06/20/2024 11:44 PM EDT URINALYSIS, REFLEX TO CULTURE (CUP ONLY) STAT 06/20/2024 11:44 PM EDT URINALYSIS, REFLEX TO CULTURE (NOT FOR NEUTROPENIC PATIENTS) STAT 06/20/2024 11:44 PM EDT XR CHEST 2 VIEWS STAT 06/20/2024 11:3 7 PM EDT CTA HEAD/CTA NECK Routine 06/20/2024 11: 34 PM EDT DIFFERENTIAL, AUTOMATED STAT 06/20/2024 10:56 PM EDT TROPONIN T, HIGH SENSITIVITY STAT 06/20/2024 10:56 PM EDT COMPREHENSIVE METABOLIC PANEL STAT 06/20/2024 10:56 PM EDT CBC STAT 06/20/2024 10:56 PM EDT PT INR STAT 06/20/2024 10:56 PM EDT CBC STAT 06/20/2024 10:56 PM EDT documented in this encounter Results * (ABNORMAL) TROPONIN T, HIGH SENSITIVITY (06/21/2024 12:00 AM EDT) Troponin T, High Sensitivity 23(H) <=14 ng/L 06/21/2024 12:[address] [facility] Blood Venous blood specimen / Unknown Venipuncture / Unknown 06/21/2024 12:00 AM EDT 06/21/2024 12:03 AM EDT Fabricio Velasco DO LAB BLOOD ORDERABLES F inal Result LABORATORY [address] [address] * (ABNORMAL) URINALYSIS, REFLEX TO CULTURE (06/20/2024 11:44 PM EDT) Color, Urine Yellow Light Yellow, Yellow, Dark Yellow 06/21/2024 12:18 AM EDT LABORATORY GL Clarity, Urine Clear Clear 06/21/2024 12:18 AM EDT LABORATORY GL Glucose, Urine Negative Negative mg/dL 06/21/2024 12:18 AM EDT LABORATORY GL Bilirubin, Urine Negative Negative 06/21/2024 12:18 AM EDT LABORATORY GLH Ketone, Urine Negative Negative mg/dL 06/21/2024 12:18 AM EDT LABORATORY GL Specific [place], Urine 1.007 1.003 - 1.030 06/21/2024 12:18 AM EDT LABORATORY GL Blood, Urine Negative Negative 06/21/2024 12:18 AM EDT LABORATORY GL pH, Urine 6.0 5.0 - 7.5 Units 06/21/2024 12:18 AM EDT LABORATORY GL[facility] Protein, Urine Negative Negative mg/dL 06/21/2024 12:18 AM EDT LABORATORY GL Urobilinogen, Urine 1.0 0.2, 1.0 mg/dL 06/21/2024 12:18 AM EDT LABORATORY [facility] Nitrite, Urine Negative Negative 06/21/2024 12:18 AM EDT LABORATORY [facility] Esterase, Urine Trace(A) Negative 06/21/2024 12:18 AM EDT LABORATORY [facility] RBC, Urine 0-2 0 - 2 /HPF 06/21/2024 12:18 AM EDT LABORATORY [facility] WBC, Urine 0-2 0 - 2 /HPF 06/21/2024 12:[address] [facility] Bacteria, Urine 0-25 0 - 25 /HPF 06/21/2024 12:[address] [facility] Culture, Urine 06/21/2024 12:[address] [facility] Comment:Culture not indicate d by urinalysis results Urine Urine specimen / Unknown Non-blood Collection / Unknown 06/20/2024 11:44 PM EDT 06/20/2024 11:51 PM EDT [facility] LAB URINE ORDERABLES F inal Result Performing Organization Address City/[facility]/ZIP Co de Phone Number LABORATORY [address] [address] * URINALYSIS, REFLEX TO CULTURE (CUP ONLY) (06/20/2024 11:44 PM EDT) Urinalysis, Reflex to Culture Specimen Specimen collected and received 06/21/2024 1:[address] [facility] Urine Urine specimen / Unknown Non-blood Collection / Unknown 06/20/2024 11:44 PM EDT 06/20/2024 11:50 PM EDT [facility] URINE ORDERABLES F inal Result Performing Organization Address City/[facility] Co de Phone Number LABORATORY [address] [address] * XR CHEST 2 VIEWS (06/20/2024 11:37 PM EDT) Anatomical Region Laterality Modality Chest Digital Radiogra phy 06/20/2024 11:2 9 PM EDT Impressions 06/21/2024 12:30 AM EDT IMPRESSION: 1. No active disease in the chest. 2. Additional nonacute/incidental finding(s) as described above. THIS DOCUMENT HAS BEEN ELECTRONICALLY SIGNED BY DALLAS FERNANDEZ MD Narrative 06/21/2024 12:30 AM EDT PROCEDURE INFORMATION: Exam: XR Chest Exam date and time: 06/20/2024 11:29 PM Age: 58 years old Clinical indication: Other: PT presents to ED for abnormal vision and dizziness; Additional info: HX smoking/sob - visual disturbance TECHNIQUE: Imaging protocol: Radiologic exam of the chest. Views: 2 views. COMPARISON: CT CHEST WO(Adult) 09/11/2023 12:50 PM FINDINGS: Tubes, catheters and devices: Electrode in the thoracic spine with tip at the level of T7-8, as before. Overlying EKG leads noted. Lungs: Unremarkable. No consolidation. Pleural spaces: No pleural significant effusion. No pneumothorax. Heart/Mediastinum: Unremarkable. No cardiomegaly. Vasculature: Aortic arch calcifications, as before. Bones/joints: Anterior fixation plate and screws at C7-T1 again seen. Mild dextroscoliosis of the thoracic spine, as before. Soft tissues: Prominent subcutaneous fat. Organs: Cholecystectomy clips again seen. Procedure Note Dallas Fernandez MD - 06/21/2024 PROCEDURE INFORMATION: Exam: XR Chest Exam date and time: 06/20/2024 11:29 PM Age: 58 years old Clinical indication: Other: PT presents to ED for abnormal vision and dizziness; Additional info: HX smoking/sob - visual disturbance TECHNIQUE: Imaging protocol: Radiologic exam of the chest. Views: 2 views. COMPARISON: CT CHEST WO(Adult) 09/11/2023 12:50 PM FINDINGS: Tubes, catheters and devices: Electrode in the thoracic spine with tip atthe level of T7-8, as before. Overlying EKG leads noted. Lungs: Unremarkable. No consolidation. Pleural spaces: No pleural significant effusion. No pneumothorax. Heart/Mediastinum: Unremarkable. No cardiomegaly. Vasculature: Aortic arch calcifications, as before. Bones/joints: Anterior fixation plate and screws at C7-T1 again seen. Mild dextroscoliosis of the thoracic spine, as before. Soft tissues: Prominent subcutaneous fat. Organs: Cholecystectomy clips again seen. IMPRESSION IMPRESSION: 1. No active disease in the chest. 2. Additional nonacute/incidental finding(s) as described above. THIS DOCUMENT HAS BEEN ELECTRONICALLY SIGNED BY DALLAS FERNANDEZ MD Fabricio Velasco DO RADIOLOGY (RAD GENERAL ) Final Result * CTA HEAD/CTA NECK (06/20/2024 11:34 PM EDT) Anatomical Region Laterality Modality Neck, Head, Cspine, Spine Comput ed Tomography 06/21/2024 12:3 8 AM EDT Impressions 06/21/2024 12:35 AM EDT IMPRESSION 1. 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 There is enhancement of the distal P2 vessels, diminished on the left. Evaluation limited by venous contamination. Recommend further evaluation with noncontrast MRI of the brain and MR angiogram of the head. 2. No significant stenosis of the cervical carotid or vertebral arteries. Added to PIN TICKET MACHINE OPERATOR result communication system on 06/21/2024 at 12:35 am. Narrative 06/21/2024 12:35 AM EDT EXAM CTA HEAD/CTA NECK06/20/2024 HISTORY Off/on visual disturbance worse in the left and worsening lower extremity numbness - consider intracranial hemorrhage/stroke versus others COMPARISON None. TECHNIQUE CT angiogram of the head and neck was performed with intravenous contrast. 3D images reconstructed in multiple planes on the dedicated workstation were also reviewed. FINDINGS CTA Neck: Aortic arch: The visualized aortic arch is normal. Origins of the great vessels are patent. Carotid arteries: No significant stenosis per NASCET criteria. No dissection. Vertebral arteries: No significant stenosis or dissection. Soft tissues of the neck are normal. Visualized lung apices are clear. CTA Head: Anterior circulation: No proximal large vessel occlusion, high-grade vascular stenosis, aneurysm, or vascular malformation. Posterior circulation: The vertebrobasilar system is patent without high-grade stenosis. There is high-grade stenosis of the bilateral posterior cerebral arteries proximally at the P2 segments. There is enhancement of the distal P2 vessels, diminished on the left. Evaluation limited by venous contamination. NASCET criteria for internal carotid artery stenosis: Mild: 0% to 49% Moderate: 50% to 69% Severe: 70% to 99% Complete Occlusion Procedure Note Marcelo Meredith MD - 06/21/2024 EXAM CTA HEAD/CTA NECK06/20/2024 HISTORY Off/on visual disturbance worse in the left and worsening lower extremitynumbness - consider intracranial hemorrhage/stroke versus others COMPARISON None. TECHNIQUE CT angiogram of the head and neck was performed with intravenous contrast.3D images reconstructed in multiple planes on the dedicated workstationwere also reviewed. FINDINGS CTA Neck: Aortic arch: The visualized aortic arch is normal. Origins of the greatvessels are patent. Carotid arteries: No significant stenosis per NASCET criteria. Nodissection. Vertebral arteries: No significant stenosis or dissection. Soft tissues of the neck are normal. Visualized lung apices are clear. CTA Head: Anterior circulation: No proximal large vessel occlusion, high-gradevascular stenosis, aneurysm, or vascular malformation. Posterior circulation: The vertebrobasilar system is patent withouthigh-grade stenosis. There is high-grade stenosis of the bilateralposterior cerebral arteries proximally at the P2 segments. There isenhancement of the distal P2 vessels, diminished on the left. Evaluationlimited by venous contamination. NASCET criteria for internal carotid artery stenosis: Mild: 0% to 49% Moderate: 50% to 69% Severe: 70% to 99% Complete Occlusion IMPRESSION IMPRESSION 1. High-grade stenosis of the bilateral posterior cerebral arteriesproximally at the P2 segments. There is enhancement of the distal I2hiwcecg, diminished on the left. Evaluation limited by venouscontamination. Recommend further evaluation with noncontrast MRI of thebrain and MR angiogram of the head. 2. No significant stenosis of the cervical carotid or vertebralarteries. Added to PIN TICKET MACHINE OPERATOR result communication system on 06/21/2024 at 12:35 am. Fabricio Velasco DO RAD CT Final Result * DIFFERENTIAL, AUTOMATED (06/20/2024 10:56 PM EDT) WBC 5.11 4.00 - 10.80 K/uL 06/20/2024 11:20 PM EDT LABORATORY [facility] Neutrophils % 48.1 40.0 - 75.0 % 06/20/2024 11:20 PM EDT LABORATORY [facility] Lymphocytes % 40.1 18.0 - 42.0 % 06/20/2024 11:20 PM EDT LABORATORY [facility] Monocytes % 10.2 1.0 - 11.0 % 06/20/2024 11:20 PM EDT LABORATORY [facility] Eosinophils % 1.0 0.0 - 6.0 % 06/20/2024 11:20 PM EDT LABORATORY [facility] Basophils % 0.4 0.0 - 2.0 % 06/20/2024 11:20 PM EDT LABORATORY GL Immature Granulocytes % 0.2 0.0 - 2.0 % 06/20/2024 11:20 PM EDT LABORATORY GL Absolute Neutrophils 2.46 1.80 - 7.70 K/uL 06/20/2024 11:20 PM EDT LABORATORY GL Absolute Lymphocytes 2.05 1.00 - 4.80 K/ul 06/20/2024 11:20 PM EDT LABORATORY GL Absolute Monocytes 0.52 0.00 - 1.10 K/uL 06/20/2024 11:20 PM EDT LABORATORY GL Absolute Eosinophils 0.05 0.00 - 0.70 K/uL 06/20/2024 11:20 PM EDT LABORATORY GL Absolute Basophils 0.02 0.00 - 0.20 K/uL 06/20/2024 11:20 PM EDT LABORATORY GL Absolute Immature Granulocytes 0.01 0.00 - 0.20 K/uL 06/20/2024 11:[address] [facility] Blood Venous blood specimen / Unknown Venipuncture / Unknown 06/20/2024 10:56 PM EDT 06/20/2024 11:01 PM EDT Fabricio Velasco DO LAB BLOOD ORDERABLES F inal Result LABORATORY [address] [address] * (ABNORMAL) CBC (06/20/2024 10:56 PM EDT) Pathologist [facility] [place] WBC 5.11 4.00 - 10.80 K/uL 06/20/2024 11:20 PM EDT LABORATORY GL RBC 4.26 3.85 - 5.15 M/uL 06/20/2024 11:20 PM EDT LABORATORY GL HGB 10.5(L) 12.0 - 15.3 g/dL 06/20/2024 11:20 PM EDT LABORATORY GL HCT 34.7(L) 36.0 - 45.2 % 06/20/2024 11:20 PM EDT LABORATORY GL MCV 81.5 81.5 - 97.5 fL 06/20/2024 11:20 PM EDT [facility] MCH 24.6 27.0 - 34.0 pg 06/20/2024 11:[address] [facility] MCHC 30.3 32.0 - 36.0 g/dL 06/20/2024 11:[address] [facility] RDW 15.4 11.5 - 15.5 % 06/20/2024 11:[address] [facility] PLT 157 140 - 400 K/uL 06/20/2024 11:[address] [facility] MPV 12.9 6.6 - 11.1 fL 06/20/2024 11:[address] [facility] nRBCs 0 <=0 /100 WBCs 06/20/2024 11:[address] [facility] Blood Venous blood specimen / Unknown Venipuncture / Unknown 06/20/2024 10:56 PM EDT 06/20/2024 11:01 PM EDT Fabricio Jaquez [facility] LAB BLOOD ORDERABLES F inal Result LABORATORY [address] [address] * PT INR (06/20/2024 10:56 PM EDT) [facility] Prothrombin Time 14.5 11.6 - 15.2 seconds 06/20/2024 11:[address] [facility] INR 1.1 0.8 - 1.2 06/20/2024 11:[address] [facility] Blood Venous blood specimen / Unknown Venipuncture / Unknown 06/20/2024 10:56 PM EDT 06/20/2024 11:02 PM EDT Narrative [facility] - 06/20/2024 11:18 PM EDT Warfarin Therapy INR: 2.0-3.0 conventional anticoagulation INR: 2.5-3.5 high intensity anticoagulation [facility]io [facility] LAB BLOOD ORDERABLES F inal Result LABORATORY [address] [address] * (ABNORMAL) TROPONIN T, HIGH SENSITIVITY (06/20/2024 10:56 PM EDT) [facility] Troponin T, High Sensitivity 23(H) <=14 ng/L 06/20/2024 11:[address] [facility] Blood Venous blood specimen / Unknown Venipuncture / Unknown 06/20/2024 10:56 PM EDT 06/20/2024 11:01 PM EDT Fabricio Velasco DO LAB BLOOD ORDERABLES F inal Result LABORATORY [address] [address] * COMPREHENSIVE METABOLIC PANEL (06/20/2024 10:56 PM EDT) [facility] BUN 9 6 - 20 mg/dL 06/20/2024 11:[address] [facility] CREATININE 0.8 0.5 - 1.0 mg/dL 06/20/2024 11:[address] [facility] EGFR 89 >=60 mL/min 06/20/2024 11:[address] [facility] Comment:eGFR is calculated b ased on the CKD-EPI 2020 equation. SODIUM 140 135 - 146 mmol/L 06/20/2024 11:22 PM EDT LABORATORY GL POTASSIUM 3.7 3.5 - 5.1 mmol/L 06/20/2024 11:22 PM EDT LABORATORY GL CHLORIDE 104 98 - 107 mmol/L 06/20/2024 11:22 PM EDT LABORATORY [facility] CO2 26 22 - 32 mmol/L 06/20/2024 11:22 PM EDT LABORATORY GL ANION GAP 10 7 - 15 mmol/L 06/20/2024 11:22 PM EDT LABORATORY GL GLUCOSE 93 70 - 120 mg/dL 06/20/2024 11:22 PM EDT LABORATORY GL Albumin 3.8 3.8 - 5.0 g/dL 06/20/2024 11:22 PM EDT LABORATORY GL AST 26 10 - 35 U/L 06/20/2024 11:22 PM EDT LABORATORY [facility] Alkaline Phosphatase 111 35 - 130 U/L 06/20/2024 11:22 PM EDT LABORATORY [facility] Bilirubin, Total 0.4 <=1.2 mg/dL 06/20/2024 11:22 PM EDT LABORATORY [facility] CALCIUM 9.0 8.4 - 10.2 mg/dL 06/20/2024 11:22 PM EDT LABORATORY [facility] Protein 6.5 6.0 - 8.3 g/dL 06/20/2024 11:22 PM EDT LABORATORY [facility] ALT 13 10 - 35 U/L 06/20/2024 11:22 PM EDT LABORATORY [facility] Blood Venous blood specimen / Unknown Venipuncture / Unknown 06/20/2024 10:56 PM EDT 06/20/2024 11:01 PM EDT Fabricio Velasco DO LAB BLOOD ORDERABLES F inal Result LABORATORY [facility] [address] [place] [address] documented in this encounter Visit Diagnoses Diagnosis [...] myositis, unspecified Opioid dependence, uncomplicated (HCC) Visual disturbance- Primary Unspecified visual disturbance SOB (shortness of breath) Shortness of breath Screening mammogram for breast cancer documented in this encounter Administered Medications Inactive Administered Medications - up to 3 most recent administrations Medication Order MAR Action Action Date Dose Rate Site diphenhydrAMINE (Benadryl) inj 25 mg 25 mg, Intravenous, ONCE, On 06/20/24 at 2330, For 1 dose Given 06/20/2024 11:00 PM EDT 25 mg Iopamidol (Isovue 370) inj 80 mL 80 mL, Intravenous, ONCE, On Thu06/21/24 at 0015, For 1 dose, Radiology Medication Routing (Non-IR) Given 06/21/2024 12:15 AM EDT 80 mL methylPREDNISolone sodium succ (SOLU-Medrol) inj 60 mg 60 mg, IV Push, ONCE, On Thu06/20/24 at 2330, For 1 dose Given 06/20/2024 11:00 PM EDT 60 mg documented in this encounter Active and Recently Administered Medications Times are shown in EDT. Scheduled Medication Order 06/19/2024 06/20/2024 06/21/2024 diphenhydrAMINE (Benadryl) inj 25 mg (COMPLETED) 25 mg, Intravenous, ONCE, On Thu06/20/24 at 2330, For 1 dose 2300 (Given - Provider: Rainer Uriarte RN) Iopamidol (Isovue 370) inj 80 mL (COMPLETED) 80 mL, Intravenous, ONCE, On Thu06/21/24 at 0015, For 1 dose, Radiology Medication Routing (Non-IR) 0015 (Given - Provid er: Lei Campbell, RT (R)) methylPREDNISolone sodium succ (SOLU-Medrol) inj 60 mg (COMPLETED) 60 mg, IV Push, ONCE, On Thu06/20/24 at 2330, For 1 dose 2300 (Given - Provider: Rainer Uriarte RN) documented in this encounter Advance Directives * [...] Agents on File Name Relationship [facility] Agent [facility] Communication Jemal Hester Spouse Health Care Repr esentative (appointed verbally by patient or by statute hierarchy) Care Teams Maid Housekeeper Relationship Specialty Start Date End Date Ishaan Pepe MD [address] [place] [address] PCP - General Internal Medicine 07/18/21 documented as of this encounter
--- OUTSIDE RECORDS SUMMARY | 2024-06-30 07:07 | External Medical Summary ---
Author Name Unknown Address Unknown Organization K1F:LABORATORY [facility] - [address] [place] [address] Laboratory Report Ordering Provider Test Date Status DAV MENENDEZLINDA 06/20/2024 22:56:19 Final Observation Date Value Abnormality Reference (Units ) Status BUN 06/20/2024 22:56:19 9 6-20 (mg/dL) Final Creatinine 06/20/2024 22:56:19 0.8 0.5-1.0 (mg/dL) Final Glomerular filtration rate/1.73 sq M.predicted [Volume Rate/Area] in Serum, Plasma or Blood by Creatinine-based formula (CKD-EPI) 06/20/2024 22:56:19 89 >=60 (mL/min) Final eGFR is calculated based on the CKD-EPI 2020 equation. Sodium 06/20/2024 22:56:19 140 135-146 (m mol/L) Final Potassium 06/20/2024 22:56:19 3.7 3.5-5.1 (m mol/L) Final Cl 06/20/2024 22:56:19 104 98-107 (mm ol/L) Final CO2 06/20/2024 22:56:19 26 22-32 (mmo l/L) Final Anion gap 06/20/2024 22:56:19 10 7-15 (mmol /L) Final Glucose 06/20/2024 22:56:19 93 70-120 (mg /dL) Final Albumin 06/20/2024 22:56:19 3.8 3.8-5.0 (g /dL) Final AST (Aspartate aminotransferase) 06/20/2024 22:56:19 26 10-35 (U/L) Final Alk Phos 06/20/2024 22:56:19 111 35-130 (U/ L) Final Bilirubin, Total 06/20/2024 22:56:19 0.4 <=1 .2 (mg/dL) Final Calcium 06/20/2024 22:56:19 9.0 8.4-10.2 ( mg/dL) Final Protein 06/20/2024 22:56:19 6.5 6.0-8.3 (g /dL) Final ALT (Alanine aminotransferase) 06/20/2024 22:56:19 13 10-35 (U/L) Final Performing Location LABORATORY [facility] [place] [address]
--- OUTSIDE RECORDS SUMMARY | 2024-06-30 07:07 | External Medical Summary ---
Author Name Unknown Address Unknown Organization K1F:LABORATORY [facility] - [address] [place] [address] Laboratory Report Ordering Provider Test Date Status LOKESH MENENDEZ 06/20/2024 22:56:19 Final Warfarin Therapy
INR: 2 .0-3.0 conventional anticoagulation
INR: 2.5- 3.5 high intensity anticoagulation Observation Date Value Abnormality Reference (Units ) Status PT 06/20/2024 22:56:19 14.5 11.6-15.2 (seconds) Final INR 06/20/2024 22:56:19 1.1 0.8-1.2 Final Performing Location LABORATORY [facility] - [address] [place] [address]
--- OUTSIDE RECORDS SUMMARY | 2024-06-30 07:07 | External Medical Summary | Summary of Care ---
Author Name Unknown Organization [facility] Address [address] [place] [address] Phone [phone] Care Team Providers Care Aircraft Painter Apprentice Name Role Phone Ishaan Pepe MD Primary Care Provider + Reason for Visit * Reason Comments Outpatient Testing Encounter Details Date Type Department Care Team (Late st Contact Info) Description 04/20/2024 3:00 PM EST Laboratory Laboratory, [address] [phone] [address] Dysuria Allergies Active Allergy Reactions Criticality Noted Date Comments Adhesive Tape Rash 01/05/2009 Iodinated Contrast Media Tachypnea 07/02/2022 Povidone-Iodine 10/05/2018 Other reaction(s): . Omeprazole Anaphylaxis High 01/03/2010 Tongue itchy, ear throbbing documented as of this encounter (statuses as of 04/20/2024) Medications Up4 Probiotics Womens Oral Capsule Take by mouth. Activ e Calcium Citrate 250 MG Oral Tablet Take 2 Tablets by mouth in the morning and 2 Tablets before bedtime. Active Buprenorphine HCl 8 MG Sublingual Tablet Sublingual (Subutex) Place 1 Tablet under the tongue 4 times a day. 90 Tablet 06/03/19 23 Active Synthroid 112 MCG Oral TabletIndications: Acquired hypothyroidism Take 1 Tablet by mouth in the morning. (at least 30 min prior to breakfast or other meds). 90 Tablet 3 4 8:19 AM EDT 03/24/20 23 Active Methenamine Mandelate 0.5 GM Oral Tablet (Mandelamine) Take 2 Tablets by mouth in the morning and 2 Tablets in the evening. 120 Tablet 11 07/22/19 24 Active Additional Information Patient not taking.Reported on 04/04/2024 Estradiol 0.1 MG/GM Vaginal Cream (Estrace) Administer [...] 4 5:20 PM EDT 09/02/19 24 Active Apixaban 5 MG Oral Tablet (Eliquis)Indicatio ns:Acute deep vein thrombosis (DVT) of femoral vein of right lower extremity (HCC) take one tablet by mouth in the morning and one tablet before bedtime 180 Tablet 1 4 6:10 PM EDT 10/26/19 24 Active Lactulose 10 GM/15ML Oral Solution (Constulose)Indica tions:Hepatic encephalopathy (HCC) Take 45 mL by mouth in the morning and 45 mL at noon and 45 mL before bedtime. 946 mL 1 11/06/19 24 Active Additional Information Patient taking differently:30 g OralTID PRN, Reported on 04/04/2024 Furosemide 40 MG Oral Tablet (Lasix)Indications :Liver [...] BY MOUTH AT BEDTIME 90 Tablet 2 4 8:20 AM EST 12/28/19 24 025 Active Varenicline Tartrate 1 MG Oral Tablet (Chantix)Indicatio ns:Tobacco use Take 1 Tablet by mouth in the morning and 1 Tablet before bedtime. 60 Tablet 03/08/20 Active Vitamin A 3 MG (28296 UT) Oral Capsule (Aquasol-A) Take 1 Capsule by mouth in the morning. 03/18/20 24 Active ProAir HFA 108 (90 Base) MCG/ACT Inhalation Aerosol SolutionIndication s:Chest congestion,Acute cough Inhale 2 Puffs by mouth every 4 hours as needed for Wheezing. 18 g 11 04/04/19 25 Active Hospital, Clinic, or Other Facility Administered Medication Ordered Dose Route Frequency Start Date End Date Status vitamin b-12 (Cyanocobalamin) inj 1,000 mcgIndications:Intestinal postoperative nonabsorption 1000 mcg IM [id number] 06/22/2023 05/23/19 25 Active documented as of this encounter (statuses as of 04/20/2024) Active Problems Problem Noted Date Diagnosed Date [...] dependence, uncomplicated 04/27/2020 Overview (07/30/2022): Managed by [facility] for opoid addiction - takes Subutex [...] (06/02/2022 12:21 PM EST): Following with Kishore Regalado [facility] Has not been taking lactulose due to [...] as of this encounter (statuses as of 04/20/2024) Resolved Problems Problem Noted Date Diagnosed Date [...] 08/08/2020 12/06/2021 Overview (10/22/2021): 10/18 [facility] stress echo normal EF, no CAD, [...] as of this encounter (statuses as of 04/20/2024) Immunizations Name Administration Dates Next Due DT - Diptheria/Tetanus (PEDS) 11/14/1985 ,06/30/1972,05/25/1968,04/20,02/26/1968 Hepatitis B, 20+ yrs 02/06/2014,09/06/2013,08/09 MMR-LUKE - Measles/Mumps/Rubella/Varicella Vaccine 10/13/1972 OPV - Polio Virus Vaccine (Oral) 973,05/25/1968,04/20/1968,02/25 Pneumococcal Conjugate Vacci ne, 20-valent ([id number]) 12/06/2021 Pneumococcal Polysaccharide PPV23 (Pneumovax) 02/15/2009 Rubella [...] No 11/01/2022 Does the household have a [facility] hospital[facility] source of income? (Household - for ages [...] Sushil Arcos RN documented in this encounter Plan of Treatment Upcoming Encounters Date Type Department Care Team (Late st Contact Info) Description 06/22/2024 2:00 PM EDT Office Visit Rheumatology, [address] [address] Omega Galvin PA-C [facility] [place] [address] 07/26/2024 2:30 PM EDT Office Visit Gastroenterology, [facility] [address] [facility] [place] [address] Kishore Regalado CRNP [address] [facility] [place] [address] 09/06/2024 3:40 PM EDT Office Visit Pulmonary Medicine, [facility] [address] [facility] [place] [address] Iker Toney MD [address] [place] [address] 09/27/2024 2:00 PM EDT Office Visit General Internal Medicine [facility] [address] [place], [place] [address] Ishaan Pepe MD [address] [place], [place] [address] 10/25/2024 2:40 PM EDT Office Visit Hepatology, [place] [address] [address] Kathryn Crespo, [address] [place] [address] 12/15/2024 4:15 PM EDT Imaging Radiology [address], [place] [address] [place] [phone] Pending Results Name Type Priority Associated Diagnoses Date /Time URINALYSIS, REFLEX TO CULTURE (NOT FOR NEUTROPENIC PATIENTS) Lab Routine Dysuria 04/20/2024 2:52 PM EST URINALYSIS, REFLEX TO CULTURE (CUP ONLY) Lab Routine Dysuria 04/20/2024 2:52 PM EST URINALYSIS, REFLEX TO CULTURE Lab Routine Dysuria 04/20/2024 2:52 PM EST Scheduled Procedures Name Priority Associated Diagnoses Date/Ti [...] 03/10/2024 03/10/2023 DXA Scan 06/03/2024 06/03/2022, 06/03/2022 Diabetic Eye Exam 07/09/2024 07/10/2023, , 03/27/2022, Additional history exists TSH 08/31/2024 09/01/2023, 05/29, 05/04/2023, Additional history exists HbA1c 09/08/2024 03/10/2024, 06/0 06/2023, 05/26/2022, Additional history exists Albumin/Creatinine Ratio 10/06/2024 024, 11/11/2022, 11/16/2019, Additional history exists Mammogram 12/14/2024 12/15/2023, 11/28, 12/08/2022, Additional history exists GFR 03/10/2025 03/10/2024, 10/28, 09/01/2023, Additional history exists O2 ASSESSMENT COMPLETED IN PAST YEAR FOR COPD 04/04/2025 04/04/2024 Colonoscopy 11/25/2027 11/24/2022, 10/29, 06/30/2018, Additional history [...] D LEVEL ONCE IN A LIFETIME-USE SMARTSET# 02802 Completed 06/22/2023, 02/11/2023, 08/20/2022, Additional history exists [...] this encounter Medical Devices Implanted Type Area Logistics Supply Officer Device Identifier Shelf Expiration Date Model / Serial / Lot Octrode, Lead Kit, 60 Cm Implanted:Qty: 1 on 06/20/2016 by Kirti Devine MD at OR [facility] N/A: Spine Lumbar [employer] 11/21/2017 [id number] / [id number] / Octrode, Lead Kit,60 Cm Implanted:Qty: 1 on 06/20/2016 by Kirti Devine MD at OR [facility] N/A: Spine Lumbar [employer] 05/02/2018 [id number] / [id number] / Weikert 1192 - [id number] Implanted:Qty: 2 on 06/20/2016 by Kirti Devine MD at OR [facility] Left: Buttocks [employer] 06/27/2017 [id number] / / [id number] Battery Proclaim Elite 5 - [id number] - [id number] Implanted:Qty: 1 on 06/20/2016 by Kirti Devine MD at OR [facility] Left: Buttocks [employer] 05/27/2018 [id number] / [id number] / documented as of this encounter Visit [...] and myositis, unspecified Opioid dependence, uncomplicated (HCC) Dysuria Screening mammogram for breast cancer documented in [...] Relationship Healthcare Agent Relationshi p Communication Jemal Du Quoin Spouse Health Care Repr esentative (appointed verbally by patient or by statute hierarchy) Care Teams Aircraft Painter Apprentice Relationship Specialty Start Date End Date Ishaan Ppee MD [address] [place] [address] PCP - General Internal Medicine 07/18/21 documented as of this encounter
--- OUTSIDE RECORDS SUMMARY | 2024-06-30 07:07 | External Medical Summary | Summary of Care ---
Author Name Unknown Organization [facility] Address [address] [facility] [place] [address] Phone [phone] Care Team Providers Care Service Crew Supervisor Name Role Phone Ishaan Pepe MD Primary Care Provider + Reason for Visit * Reason Onset Date Comments Advice 05/26/2024 Encounter Details Date Type Department Care Team (Late st Contact Info) Description 05/26/2024 Telephone Gastroenterology, [facility] [address] [place] [address] Kishore Regalado CRNP [address] [facility] [place] [address] Advice Allergies Active Allergy Reactions Criticality Noted Date Comments Adhesive Tape Rash 01/05/2009 Iodinated Contrast Media Tachypnea 07/02/2022 Povidone-Iodine 10/05/2018 Other reaction(s): . Omeprazole Anaphylaxis High 01/03/2010 Tongue itchy, ear throbbing documented as of this encounter (statuses as of 05/26/2024) Medications Up4 Probiotics Womens Oral Capsule Take by mouth. Activ e Calcium Citrate 250 MG Oral Tablet Take 2 Tablets by mouth in the morning and 2 Tablets before bedtime. Active Buprenorphine HCl 8 MG Sublingual Tablet Sublingual (Subutex) Place 1 Tablet under the tongue 4 times a day. 90 Tablet 06/03/19 23 Active Methenamine Mandelate 0.5 GM Oral [...] 03/08/20 24 Active Vitamin A 3 MG (16995 UT) Oral Capsule (Aquasol-A) Take 1 Capsule [...] or other meds). 90 Tablet 3 04/21/19 Active Apixaban 2.5 MG Oral Tablet (Eliquis) Take 1 Tablet by mouth in the morning and 1 Tablet before bedtime. 60 Tablet 1 05/19/19 Active documented as of this encounter (statuses as of 05/26/2024) Active Problems Problem Noted Date Diagnosed Date [...] dependence, uncomplicated 04/27/2020 Overview (07/30/2022): Managed by [facility] for opoid addiction - takes Subutex [...] as of this encounter (statuses as of 05/26/2024) Resolved Problems Problem Noted Date Diagnosed Date [...] exam 08/08/2020 12/06/2021 Overview (10/22/2021): 10/18 [facility] stress echo normal EF, no [...] as of this encounter (statuses as of 05/26/2024) Immunizations Name Administration Dates Next Due DT - Diptheria/Tetanus (PEDS) 11/14/1985 ,06/30/1972,05/25/1968,04/20,02/26/1968 Hepatitis B, 20+ yrs 02/06/2014,09/06/2013,08/09 MMR-LUKE - Measles/Mumps/Rubella/Varicella Vaccine 10/13/1972 OPV - Polio Virus Vaccine (Oral) 973,05/25/1968,04/20/1968,02/25 Pneumococcal Conjugate Vacci ne, 20-valent ([id number]) 12/06/2021 Pneumococcal Polysaccharide PPV23 (Pneumovax) 02/15/2009 Rubella [...] No 11/01/2022 Does the household have a [facility] source of income? (Household - [...] encounter Miscellaneous Notes * Telephone Encounter - Nancy Overton OSA - 05/26/2024 4:13 PM EST DA FROM [employer] JUST EMAILED BACK I HAD TO CALL AND LEAVE COLLEEN Randi MERINO ABOUT NEEDING [facility] NPI AND TAX ID INFORMATION BEFORE THEY CAN PRE CERT THE MRI. * Telephone Encounter - Nancy Overton OSA - 05/26/2024 3:24 PM EST Email send to the [employer] email waiting for the response back. * Telephone Encounter - Lewis Jones LPN - 05/26/2024 2:21 PM EST Colleen from [facility] is calling stating the patient needs an authorization for herMRI. Spoke with scheduling who stated that they needed some more time to process the authorization,and instructed me to take down Colleen's contact information. [phone] Phone number [phone] Fax number documented in this encounter Plan of Treatment Upcoming Encounters Date Type Department Care Team (Late st Contact Info) Description 06/22/2024 2:00 PM EDT Office Visit Rheumatology, [address] [address] Omega Galvin, PA[place]pesh [address] [facility] [place] [address] 07/26/2024 2:30 PM EDT Office Visit Gastroenterology, [facility] [address] [place] [address] Kishore Regalado CRNP [address] [place] [address] 09/06/2024 3:30 PM EDT Office Visit Pulmonary Medicine, [facility] [address] [facility] [place] [address] [facility]ker Toney [facility] [address] [facility] [address] 09/27/2024 2:00 PM EDT Office Visit General Internal Medicine [facility] [address] [facility] [place], [place] [address] Ishaan Pepe MD [address] [facility] [place], [place] [address] 10/25/2024 2:40 PM EDT Office Visit Hepatology, [address] [phone] Kathryn Crespo DO [address] [facility] [place] [address] 12/15/2024 4:15 PM EDT Imaging Radiology [facility] [facility] [address] [place] [phone] Scheduled Procedures Name Priority Associated Diagnoses Date/Ti me COLONOSCOPY FLEXIBLE PROXIMA L DIAGNOSTIC Recall History of colonic polyps Health Maintenance Due Date Last Done Comments Cologuard 12/24/2012 Sigmoidoscopy 12/24/2012 *ADVANCE DIRECTIVE NOT ON FILE 03/12/2019 Diabetic Foot Exam 11/15/2020 11/16/2019, 0 09/21/2018, 08/06/2017, Additional history exists DISCUSS TOBACCO CESSATION (REFER TO SMARTSET #3051) 06/25/2023 06/24/2022, 05/27/2022, 05/19/2022, Additional history exists Fecal Occult Blood Test 11/20/2023 11/20/19, 11/19/2022, 11/19/2022 COVID-19 Vaccine ( season) 2023 Depression Screening 03/10/2024 03/10/2023 DXA Scan 06/03/2024 06/03/2022, 06/03/2022 Diabetic Eye Exam 07/09/2024 07/10/2023, , 03/27/2022, Additional history exists TSH 08/31/2024 09/01/2023, 2 07/2023, 05/04/2023, Additional history exists HbA1c 09/08/2024 03/10/2024, 06/0 06/2023, 05/26/2022, Additional history exists Albumin/Creatinine Ratio 10/06/2024 024, 11/11/2022, 11/16/2019, Additional history exists Mammogram 12/14/2024 12/15/2023, 11/28, 12/08/2022, Additional history exists GFR 03/10/2025 03/10/2024, 10/28, 09/01/2023, Additional history exists O2 ASSESSMENT COMPLETED IN PAST YEAR FOR COPD 04/04/2025 04/04/2024 Colonoscopy 11/25/2027 11/24/2022, 08/2 10/2022, 06/30/2018, Additional history exists Colorectal Cancer Screening [...] D LEVEL ONCE IN A LIFETIME-USE SMARTSET# 67146 Completed 06/22/2023, 02/11/2023, 08/20/2022, Additional history exists [...] this encounter Medical Devices Implanted Type Area Family Medicine Physician Assistant Device Identifier Shelf Expiration Date Model / Serial / Lot Octrode, Lead Kit, 60 Cm Implanted:Qty: 1 on 06/20/2016 by Kirti Devine MD at OR [facility] N/A: Spine Lumbar [employer] 11/21/2017 [id number] / [id number] / Octrode, Lead Kit,60 Cm Implanted:Qty: 1 on 06/20/2016 by Kirti Devine MD at OR [facility] N/A: Spine Lumbar [employer] 05/02/2018 [id number] / [id number] / [place] 1192 - [id number] Implanted:Qty: 2 on 06/20/2016 by Kirti Devine MD at OR [facility] Left: Buttocks [employer] 06/27/2017 [id number] / / [id number] Battery Proclaim Elite 5 - [id number] - [id number] Implanted:Qty: 1 on 06/20/2016 by Kirti Devine MD at OR [facility] Left: Buttocks [employer] 05/27/2018 [id number] / [id number] / documented as of this encounter Advance [...] Name Relationship Healthcare Agent Relationshi p Communication [facility] Spouse Health Care Repr esentative (appointed verbally by patient or by statute hierarchy) Care Teams Service Crew Supervisor Relationship Specialty Start Date End Date Ishaan Pepe MD [address] [facility] [place] [address] PCP - General Internal Medicine 07/18/21 documented as of this encounter
--- OUTSIDE RECORDS SUMMARY | 2024-06-30 07:07 | External Medical Summary | Summary of Care ---
Author Name Unknown Organization [facility] Address [address] [address] Phone [phone] Care Team Providers Care Ceramics Teacher Name Role Phone Ishaan Pepe MD Primary Care Provider + Reason for Referral * Precert (Within 10 days (routine)) - Authorized Specialty Diagnoses / Procedures Referred By Contac t Referred To Contact Radiology Diagnoses Liver cirrhosis secondary to nonalcoholic steatohepatitis (SOTOMAYOR) (HCC) Procedures MRI LIVER W WO CONTRAST Marielena Khan DO [address] [place] [address] Phone: tel: fax: Referral ID Status Reason Start Date Expiration Date V isits Requested Visits Authorized [id number] Authorized 04/04/2024 999 999 Reason for Visit * Reason Comments Follow Up Cirrhosis Encounter Details Date Type Department Care Team (Latest Contact Info) Description 04/04/2024 10:40 AM EST Office Visit Hepatology, [facility] [address] [address] Marielena Khan DO [address] [place] [address] Liver cirrhosis secondary to nonalcoholic steatohepatitis (SOTOMAYOR) (HCC)*; Chest congestion; Acute cough Allergies Active Allergy Reactions Criticality Noted Date Comments Adhesive Tape Rash 01/05/2009 Iodinated Contrast Media Tachypnea 07/02/2022 Povidone-Iodine 10/05/2018 Other reaction(s): . Omeprazole Anaphylaxis High 01/03/2010 Tongue itchy, ear throbbing documented as of this encounter (statuses as of 04/04/2024) Medications Up4 Probiotics Womens Oral Capsule Take [...] 1 Tablet before bedtime. 180 Tablet 3 4 1:08 PM EDT 07/28/19 24 Active EPINEPHrine 0.3 MG/0.3ML Injection [...] Tablet 1 4 6:10 PM EDT 10/26/19 Active Lactulose 10 GM/15ML Oral Solution (Constulose)Indica tions:Hepatic encephalopathy (HCC) Take 45 mL by mouth in the morning and 45 mL at noon and 45 mL before bedtime. 946 mL 1 11/06/19 Active Additional Information Patient taking differently:30 g OralTID PRN, Reported on 04/04/2024 Furosemide 40 MG Oral Tablet (Lasix)Indications :Liver cirrhosis secondary to nonalcoholic steatohepatitis (SOTOMAYOR) (HCC),Leg edema, right Take 1 pill in the morning daily as needed for edema 11/10/19 Active Ondansetron HCl 8 MG Oral Tablet (Zofran)Indication s:Nausea TAKE ONE TABLET BY MOUTH EVERY 8 HOURS NEEDED FOR NAUSEA. 180 Tablet 2 4 8:20 AM EST 12/28/19 24 Active Mirtazapine 30 MG Oral Tablet (Remeron) TAKE ONE TABLET BY MOUTH AT BEDTIME 90 Tablet 2 4 8:20 AM EST 12/28/19 24 2024 Active Varenicline Tartrate 1 MG Oral Tablet (Chantix)Indicatio ns:Tobacco use Take 1 Tablet by mouth in the morning and 1 Tablet before bedtime. 60 Tablet 03/08/20 24 Active Vitamin A 3 MG (22668 UT) Oral Capsule (Aquasol-A) Take 1 Capsule by mouth in the morning. 03/18/20 24 Active ProAir HFA 108 (90 Base) MCG/ACT Inhalation Aerosol SolutionIndication s:Chest congestion,Acute cough Inhale 2 Puffs by mouth every 4 hours as needed for Wheezing. 18 g 11 04/04/19 25 Active ProAir HFA 108 (90 Base) MCG/ACT Inhalation Aerosol SolutionIndication s:Chest congestion,Acute cough Inhale 2 Puffs by mouth every 4 hours as needed for Wheezing. 18 g 11 02/13/20 22 2024 Disconti nued(Ref ill) Hospital, Clinic, or Other Facility Administered Medication Ordered Dose Route Frequency Start Date End Date Status vitamin b-12 (Cyanocobalamin) inj 1,000 mcgIndications:Intestinal postoperative nonabsorption 1000 mcg IM [id number] 06/22/2023 05/23/19 25 Active documented as of this encounter (statuses as of 04/04/2024) Active Problems Problem Noted Date Diagnosed Date [...] dependence, uncomplicated 04/27/2020 Overview (07/30/2022): Managed by [facility] for opoid addiction - takes Subutex [...] as of this encounter (statuses as of 04/04/2024) Resolved Problems Problem Noted Date Diagnosed Date [...] adult exam 08/08/2020 12/06/2021 Overview (10/22/2021): 10/18 [facility] stress echo normal EF, no CAD, Gr I [place] Dys. CT chest no PE. 2019 colon 2 mm polyp. Unspecified mood (affective) [...] of inactive term BMI 36.0-36.9,adult 09/02/2010 06/18/19 Recurrent major depressive d isorder, in partial remission 01/03/2010 01/20/2022 Tobacco use disorder 02/15/2009 013 MEDICATION USE AGREEMENT 01/23/200905/2022 Postartificial menopausal syndrome 05/18/2008 12/06/2021 Type 2 diabetes mellitus wit h hemoglobin A1c goal of less than 7.0% 01/02/2020 Overview (07/24/2015): ICD-10 update of inactive term documented as of this encounter (statuses as of 04/04/2024) Immunizations Name Administration Dates Next Due DT - Diptheria/Tetanus (PEDS) 11/14/1985 ,06/30/1972,05/25/1968,04/20,02/26/1968 Hepatitis B, 20+ yrs 02/06/2014,09/06/2013,08/09 MMR-LUKE - Measles/Mumps/Rubella/Varicella Vaccine 10/13/1972 OPV - Polio Virus Vaccine (Oral) 973,05/25/1968,04/20/1968,02/25 Pneumococcal Conjugate Vacci ne, 20-valent ([id number]) 12/06/2021 Pneumococcal Polysaccharide PPV23 (Pneumovax) 02/15/2009 Rubella [...] Sign Reading Time Taken Comments Blood Pressure 154/91 04/04/2024 10:34 AM EST Pulse 83 04/04/2024 10:34 AM EST Temperature 36.4 °C (97.5 °F) 04/04/2024 1 0:34 AM EST Respiratory Rate 18 04/04/2024 10:3 4 AM EST Oxygen Saturation 96% 04/04/2024 10: 34 AM EST Inhaled Oxygen Concentration - - Weight 64.3 kg (141 lb 12.8 oz) 025 10:34 AM EST Height 160 cm (5' 3") 04/04/2024 10:34 AM EST Body Mass Index 25.12 04/04/2024 10:34 AM EST documented in this encounter Functional Status * Are you deaf or do you have serious difficulty hearing? Answer Date of Assessment Author No 06/12/2022 7:56 PM EDT Sushil rAcos RN * Are you blind or do [...] documented in this encounter Progress Notes * Greta Barrera RN - 04/04/2024 10:37 AM EST Medical Marijuana Documentation Certifying provider: Unknown Authorized Dispensary: [facility] Certified Condition(s): pain Dosage product provided? Oil, Cream, and Liquid Dose: Unknown Active ingredient: THC/CBD * Marielena Khan DO - 04/04/2024 10:35 AM EST Hepatology Clinic Note Date of appointment: 04/04/2024 History of Present Illness: Arely Hester is a 58 year old F with PMH of MASH cirrhosis c/b ? HE, ascites, and LE swelling initially referred by MARK Sargent for further evaluation of a liver lesion. Also history notable for gastric bypass in 2019, DVT on Eliquis, COPD, hypothyroidism, C. Diff, neurostimulator in place and on methadone for history of narcotic addiction. She had an MRI ofthe liver 12/2022 which showed a 1.3 cm liver lesion seen only on arterial phase so felt to be a shunt or transient hepatic enhancement. LI-RADS 2. Previously had an MRI in 09/2022 with a LI-RADS 3 liver lesion. Father had pancreatic cancer. No other known family history of GI malignancy, liver disease, or HCC. She is only taking lasix 40 mg PRN. Denies any ascites or LE swelling. Also denies any confusion, GI bleeding, jaundice. She states she only needs her lasix every couple months as she only needs it when he ankles swell and she states this rarely happens. Also only taking lactulose once daily but itis questionable if she actually has a history of HE. Decompensations: Varices: no Ascites: yes. Has had paracentesis several times but states the last was over 2 years ago. But typically she has bad LE swelling SBP: no HRS: no HE: ? She states she has never had HE but that Kishore put her on this but she denies any history HCC: no. Liver lesions being monitored LI-RADS 3 Screening: EGD: 10/2022- no varices Colonoscopy 10/2022- normal. Repeat in 5 years. Liver imaging: MRI liver 02/2024- 2 LI-RADS 3 liver lesions stable on multiple MRI Review of systems: Positives in HPI. Negative for: Denies headache, lightheadedness, chest pain, cough, SOB, fever, chills, nausea, vomiting, heart burn, bloating, decreased appetite, early satiety, abdominal pain, diarrhea, fecal incontinence, constipation, rectal bleeding, weight loss, dysuria, frequency, incontinence, joint pain, back pain, weakness, fatigue, anxiety, depressed mood, difficulty sleeping. The remaining ROS reviewed and are negative. Past Medical History: Diagnosis Date Acute deep vein thrombosis (DVT) of femoral vein of right lower extremity (HCC) BMI 36.0-36.9,adult 09/02/2010 Chronic rhinitis COPD, severity to be determined (HCC) 06/18/2011 Degeneration of cervical intervertebral disc mod disc protrusion C6-7 Diaphragmatic hernia Fatty liver disease, nonalcoholic Hypothyroidism Idiopathic peripheral neuropathy Impaired fasting glucose 01/02/2020 Liver cirrhosis secondary to nonalcoholic steatohepatitis (SOTOMAYOR) (HCC) Lung nodule MEDICATION USE AGREEMENT 01/23/2009 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 Opioid dependence, uncomplicated (HCC) Osteoporosis Peptic ulcer without hemorrhage or perforation but with obstruction (HCC) 10/06/2016 Postlaminectomy syndrome, lumbar severe multilevel DDD popeye L3-5, large disc protrusion at L5-S1 S/P gastric bypass Sacral wound 06/12/2022 Subacute pulmonary embolism (HCC) Subjective tinnitus Thoracic and lumbosacral neuritis Vertigo Past Surgical History: Procedure Laterality Date BREAST BIOPSY Right benign BREAST BIOPSY Left benign BREAST BIOPSY Right benign DELIVERY x 1 COLONOSCOPY, DIAGNOSTIC (RECTUM) 08/21/2017 adenomatous polyp, poor prep, repeat/COLONOSCOPY FLEXIBLE PROXIMAL DIAGNOSTIC performed by Alice Cotton MD at ENDOSCOPY [facility] COLONOSCOPY, DIAGNOSTIC (RECTUM) 06/29/2018 poor prep, repeat / COLONOSCOPY FLEXIBLE PROXIMAL DIAGNOSTIC performed by Alice Cotton MD at [facility] COLONOSCOPY, DIAGNOSTIC (RECTUM) 06/30/2018 biopsies show hyperplastic polyps/COLONOSCOPY FLEXIBLE PROXIMAL DIAGNOSTIC performed by Deandra Caballero MD at [facility] COLONOSCOPY, DIAGNOSTIC (RECTUM) N/A 11/24/2022 hemorrhoids/recall 5 years/COLONOSCOPY FLEXIBLE PROXIMAL DIAGNOSTIC performed by Mark Baptiste DO at OR [facility] EGD, FLEXIBLE, DIAGNOSTIC 05/14/2017 erosive gastropathy, duodenitis/ESOPHAGOGASTRODUODENOSCOPY (EGD), FLEXIBLE, TRANSORAL, DIAGNOSTIC performed by Alice Cotton MD at [facility] EGD, FLEXIBLE, DIAGNOSTIC 08/21/2017 mild gastritis/ESOPHAGOGASTRODUODENOSCOPY (EGD), FLEXIBLE, TRANSORAL, DIAGNOSTIC performed by Alice Cotton MD at [facility] EGD, FLEXIBLE, DIAGNOSTIC N/A 04/28/2018 ESOPHAGOGASTRODUODENOSCOPY (EGD), FLEXIBLE, TRANSORAL, DIAGNOSTIC performed by Agata Costa OR [facility] EGD, FLEXIBLE, DIAGNOSTIC 06/29/2018 GJ inflammation & severe stenosis, repeat 2 wks/ESOPHAGOGASTRODUODENOSCOPY (EGD), FLEXIBLE, TRANSORAL, DIAGNOSTIC performed by Alice Cotton MD at [facility] EGD, FLEXIBLE, DIAGNOSTIC 07/14/2018 anastomotic stenosis, repeat 2 wks/ESOPHAGOGASTRODUODENOSCOPY (EGD), FLEXIBLE, TRANSORAL, DIAGNOSTIC performed by Alice Cotton MD at [facility] EGD, FLEXIBLE, DIAGNOSTIC 07/28/2018 normal/ESOPHAGOGASTRODUODENOSCOPY (EGD), FLEXIBLE, TRANSORAL, DIAGNOSTIC performed by Alice Cotton MD at [facility] EGD, FLEXIBLE, DIAGNOSTIC 10/21/2018 normal bx/ESOPHAGOGASTRODUODENOSCOPY (EGD), FLEXIBLE, TRANSORAL, DIAGNOSTIC performed by Deandra Caballero MD at [facility] EGD, FLEXIBLE, DIAGNOSTIC N/A 05/13/2019 ESOPHAGOGASTRODUODENOSCOPY (EGD), FLEXIBLE, TRANSORAL, DIAGNOSTIC performed by Agata Monaco ENDOSCOPY [facility] EGD, FLEXIBLE, DIAGNOSTIC 01/27/2020 gastritis / ESOPHAGOGASTRODUODENOSCOPY (EGD), FLEXIBLE, TRANSORAL, DIAGNOSTIC performed by Deandra Caballero MD at ENDOSCOPY [facility] EGD, FLEXIBLE, DIAGNOSTIC 07/18/2021 normal / ESOPHAGOGASTRODUODENOSCOPY (EGD), FLEXIBLE, TRANSORAL, DIAGNOSTIC performed by Nikko Martino MD at ENDOSCOPY [facility] EGD, FLEXIBLE, DIAGNOSTIC N/A 11/24/2022 normal/ESOPHAGOGASTRODUODENOSCOPY (EGD), FLEXIBLE, TRANSORAL, DIAGNOSTIC performed by Mark Baptiste DO at OR [facility] EGD, FLEXIBLE, TRANSENDOSCOPIC DILATION <30MM N/A 07/07/2018 ESOPHAGOGASTRODUODENOSCOPY (EGD), FLEXIBLE, TRANSORAL, BALLOON DILATION LESS THAN 30MM performed byJose E Callahan MD at [facility] EGD, FLEXIBLE,W/ENDOSCOPIC US 09/05/2016 fatty liver, gastric & duodenal ulcers, normal bx, repeat EGD 2 mo/[facility] EVAL NEUROSTIM PULSE GEN, W/ REPROGRAM N/A 04/18/2016 NEUROSTIMULATOR PULSE GENERATOR/ TRANSMITTER, WITH INTRAOPERATIVE OR SUBSEQUENT PROGRAMMING performed by Kirti Devine MD at OR [facility] EVAL NEUROSTIM PULSE GEN, W/ REPROGRAM N/A 06/20/2016 NEUROSTIMULATOR PULSE GENERATOR/ TRANSMITTER, WITH INTRAOPERATIVE OR SUBSEQUENT PROGRAMMING performed by Kirti Devine MD at OR [facility] IMPLANT EPIDURAL NEUROELECTRODES N/A 04/18/2016 PERCUTANEOUS IMPLANTATION NEUROSTIMULATOR EPIDURAL performed by Kirti Devine MD at OR [facility] IMPLANT EPIDURAL NEUROELECTRODES N/A 06/20/2016 PERCUTANEOUS IMPLANTATION NEUROSTIMULATOR EPIDURAL performed by Kirti Devine MD at OR [facility] IMPLANT SPINAL NEURORECEIVER N/A 06/20/2016 INSERTION OR REPLACEMENT SPINAL NEUROSTIMULATOR GENERATOR performed by Kirti Devine MD at OR [facility] IMPLANT SPINAL NEURORECEIVER Left 08/09/2020 INSERTION OR REPLACEMENT SPINAL NEUROSTIMULATOR GENERATOR performed by Victor Manuel Scott MD at OR [facility] INFORMATION breast surgery x2 INFORMATION back surgery x2 LAPAROSCOPE PROCEDURE, LIVER N/A 04/28/2018 UNLISTED LAPAROSCOPIC PROCEDURE LIVER performed by Jose E Callahan MD at [facility] LAPAROSCOPIC GASTRIC BYPASS/BAKARI-EN-Y N/A 04/28/2018 LAPAROSCOPIC GASTRIC RESTRICTIVE BYPASS BAKARI EN Y performed by Jose E Callahan MD at [facility] LUMBAR HEMILAMINECTOMY L4-5 in and L3-4 in OTHER PERIPHERAL NERVE NEUROPLASTY, ARM/LEG Right 03/31/2019 NEUROPLASTY MAJOR PERIPHERAL NERVE ARM OR LEG performed by Elmer Sanford MD at OR [facility] REMOVAL OF APPENDIX REMOVAL OF OVARY(S) 2007 Oopherectomy, Each removed seperately REMOVAL OF TONSILS, UNDER AGE 12 REMOVE GALLBLADDER REPAIR INITIAL INCISIONAL OR VENTRAL HERNIA; REDUCIBLE umbilical hernia repaired at the same time, mesh TOTAL ABD HYSTERECTOMY W/WO REMOVAL OF TUBE(S) 1994 for dysplasia (ANSHU) Family History Problem Relation Name Age of Onset Cancer Mother Pancreatic, age 66 Diabetes Father Hypertension Father Mental Disorder Daughter Breast Cancer Aunt (Unspecified) 63 maternal Diabetes Grandmother (Maternal) Breast Cancer Grandfather (Maternal) Current Outpatient Medications Medication Sig Dispense Refill Up4 Probiotics Womens Oral Capsule Take by mouth. Buprenorphine HCl 8 MG Sublingual Tablet Sublingual (Subutex) Place 1 Tablet under the tongue 4 times a day. 90 Tablet 0 Synthroid 112 MCG Oral Tablet Take 1 Tablet by mouth in the morning. (at least 30 min prior to breakfast or other meds). 90 Tablet 3 Estradiol 0.1 MG/GM Vaginal Cream [...] to the Emergency room. 6 Each 1 Apixaban 5 MG Oral Tablet (Eliquis) take one tablet by mouth in the morning and one tablet before bedtime 180 Tablet 1 Lactulose 10 GM/15ML Oral Solution (Constulose) Take 45 mL by mouth in the morning and 45 mL at noon and 45 mL before bedtime. (Patient taking differently: Take 45 mL by mouth 3 times a day as needed.) 946 mL 1 Ondansetron HCl 8 MG Oral Tablet (Zofran) [...] 60 Tablet 0 Vitamin A 3 MG (08702 UT) Oral Capsule (Aquasol-A) Take 1 Capsule by mouth in the morning. ProAir HFA 108 (90 Base) MCG/ACT Inhalation Aerosol Solution Inhale 2 Puffs by mouth every 4 hours as needed for Wheezing. (Patient not taking: Reported on 03/18/2024) 18 g 11 Calcium Citrate 250 MG Oral Tablet Take 2 Tablets by mouth in the morning and 2 Tablets before bedtime. (Patient not taking: Reported on 04/04/2024) Methenamine Mandelate 0.5 GM Oral Tablet (Mandelamine) Take 2 Tablets by mouth in the morning and 2Tablets in the evening. (Patient not taking: Reported on 03/10/2024) 120 Tablet 11 Furosemide 40 MG Oral Tablet (Lasix) Take 1 pill in the morning daily as needed for edema Current Facility-Administered Medications Medication Dose Route Frequency Provider Last Rate Last Admin vitamin b-12 (Cyanocobalamin) inj 1,000 mcg 1,000 mcg Intramuscular Q4 Weeks Rosalina Velazquez PA-C 1,000 mcg at 03/10/24 1215 Review of patient's allergies indicates: Allergen Reactions Prilosec [Omeprazole] Anaphylaxis Tongue itchy, ear throbbing Adhesive Tape Rash Iodinated Contrast Media Tachypnea Povidone-Iodine Other reaction(s): . Physical Exam: vitals: BP 154/91 | Pulse 83 | Temp 36.4 °C (97.5 °F) (Infrared ) | Resp 18 | Ht 1.6 m (5' 3") | Wt 64.3 kg (141 lb 12.8 oz) | SpO2 96% | BMI 25.12 kg/m² | BSA 1.69 m² GENERAL: Well developed and well nourished in no acute distress. No notable sarcopenia. SKIN: No rashes, ulcers, jaundice or spider angiomata. HEENT: Normocephalic, sclera anicteric NECK: Supple LUNGS: Clear to auscultation bilaterally, no respiratory distress or accessory muscles used. HEART: Regular rate & rhythm, no murmurs, rubs, or gallops present ABDOMEN: Normal bowel sounds, soft and nontender, no masses or hepatosplenomegaly. No appreciable ascites or fluid wave. EXTREMITIES: No palmar erythema, no lower extremity edema. NEURO: No lateralizing findings. Sensory/Motor grossly normal. No asterixis present on exam. Recent Labs: Reviewed MELD 3.0: 7 at 03/10/2024 12:52 PM Calculated from: Serum Creatinine: 0.8 mg/dL (Using min of 1 mg/dL) at 03/10/2024 12:52 PM Serum Sodium: 140 mmol/L (Using max of 137 mmol/L) at 03/10/2024 12:52 PM Total Bilirubin: 0.3 mg/dL (Using min of 1 mg/dL) at 03/10/2024 12:52 PM Serum Albumin: 4 g/dL (Using max of 3.5 g/dL) at 03/10/2024 12:52 PM INR(ratio): 1 at 03/10/2024 12:52 PM Age at listing (hypothetical): 58 years Sex: Female at 03/10/2024 12:52 PM Recent Imaging Studies: Reviewed MRI liver 03/11/2024: Impression: Cirrhotic liver. The 14 x 10 mm arterial enhancing lesion in segment 5 of the liver is unchanged, and may represent a vascular shunt rather than a solid hepatic nodule.. There is a 6 x 6 mm early arterial enhancing lesion in segment 8 of the liver near the liver dome. These are most consistent with LI-RADS 3 lesions. MRI abdomen 12/04/2023: IMPRESSION: Hepatosplenomegaly with suggestion of mild hepatic steatosis and nodular contour indicating underlying fibrotic/cirrhotic morphology with and enhancing observation within the anterolateral aspect of segment 5 measuring 1.5 x 1.0 cm, which appears wedged shaped, is without T2 or restricted diffusion correlate, or washout or capsule favored to represent vascular/perfusional shunting. LI-RADS 3. MRI liver 01/12/2023: MRI ABDOMEN W WO CONTRAST Impression: Motion degraded exam with a 1.3 cm focus seen only on arterial phase imaging in the peripheral anterior liver demonstrating brisk arterial enhancement-this is in segment 5-this is not seen on delayed imaging and is not seen on water sensitive imaging-the previously questioned focus is not currently seen; nodule liver contour is not well seen also likely due to motion-it is unclear if there is cirrhosis-current briskly enhancing focus is likely a shunt or transient hepatic enhancement-LI -RADS 2 benign 1. Status post cholecystectomy 2. Small hiatal hernia 3. Prominent spleen at 13 C.M.; prominent liver at 20 cm MRI abdomen 10/24/2022: Impression: 1. Cirrhotic liver. Observation 1: 8 mm focus of enhancement segment 3 of the liver. It is uncertain if this represents a vascular shunt or true lesion. Follow-up MRI in 3-6 months is recommended to assess for growth. LI-RADS 3 Recent Endoscopic Procedures: Reviewed EGD 10/2022: Impression: - No endoscopic esophageal abnormality to explain patient's dysphagia. Esophagus dilated. Dilated. - Gastric bypass with a small-sized pouch and intact staple line. Gastrojejunal anastomosis characterized by healthy appearing mucosa. - No specimens collected. Colonoscopy 11/24/2022: Impression: - The examined portion of the ileum was normal. - Internal hemorrhoids. - The examination was otherwise normal. - No specimens collected. Assessment and plan: Arely Hester is a 58 year old F with PMH of SOTOMAYOR cirrhosis c/b HE and LE swelling initially referred by MARK Sargent for further evaluation of a liver lesion. Also history notable for gastric bypass in 2019, DVT on Eliquis, COPD, hypothyroidism, C. Diff, neurostimulator in place and on methadone for history of narcotic addiction. -Liver disease severity. Pt.'s last MELD was 7. We will get MELD labs every 3-6 months -Variceal screening: EGD 10/2022 without varices. Repeat in 2 years or sooner in event of a decompensation. -Hepatic encephalopathy: based on today's examination, the pt. does not have asterixis. Continue lactulose and titrate for 3-4 soft bowel movements/daily. -Currently she prescribed lasix 40 mg daily. She is euvolemic on exam today. Last paracentesis 1 year ago. Low salt diet no more than 2 grams daily recommended. -Renal function: pt.'s most recent SCr was 0.8. -HCC screening. Last 2 MRI in 11/2023 and 02/2024 with 2 stable LI-RADS 3 liver lesions. Previously had an MRI in 09/2022 with a LI-RADS 3 liver lesion. Will repeat MRI again in 3 months (05/2024) and if remains stable will recommend to space out the next MRI 6 months. This was ordered today. -Avoid liver toxins including over the counter herbal supplements. May take Acetaminophen up to 2 grams a day. Avoid NSAIDS due to increased risk of GI bleeding and fluid retention. Avoid all alcohol. Patient encouraged to avoid benzodiazepines and opiate pain medications due to risk of precipitating HE. -Transplant evaluation: Pt.'s current MELD does not warrant a transplant evaluation. Hence, will defer the pt. from a transplant evaluation. -Colorectal cancer screening: last colonoscopy 10/2022 normal. Recommended repeat in 5 years. -Follow up in 6 months Marielena Khan DO Gastroenterology and Hepatology I spent a total of 25 minutes on the date of service in review of patient's record, and previously obtained information in person and appropriate medical visit, discussion and education of plan, withpatient and/or caregiver, placing orders for tests/referral/procedures as medically necessary and documentation of pertinent clinical information in patient's medical records for their visit today. documented in this encounter Nursing Notes * Greta Barrera RN - 04/04/2024 10:37 AM EST Chief Complaint Patient presents with Follow Up Cirrhosis Here with spouse. Denies swelling. Moving bowels a "couple times a week." Using Lactulose about once a month. No BRB/melena. Rare nausea/vomiting. documented in this encounter Miscellaneous Notes * Addendum Note - Marielena Khan DO - 04/04/2024 11:08 AM ESTAddended by: MARIELENA KHAN on: 04/04/2024 11:08 AM Modules accepted: Orders * Addendum Note - Marielena Khan DO - 04/04/2024 11:07 AM ESTAddended by: MARIELENA KHAN on: 04/04/2024 11:07 AM Modules accepted: Orders documented in this encounter Plan of Treatment Upcoming Encounters Date Type Department Care Team (Late st Contact Info) Description 06/22/2024 2:00 PM EDT Office Visit Rheumatology, [facility] [address] [place] [address] Omega Galvin PA-C [address] [facility] [place] [address] 07/26/2024 2:30 PM EDT Office Visit Gastroenterology, [facility] [address] [facility] [place] [address] Kishore Regalado CRNP [address] [facility] [address] 09/06/2024 3:40 PM EDT Office Visit Pulmonary Medicine, [facility] [address] [facility] [place] [address] Iker Toney MD [address] [facility] [place] [address] 09/27/2024 2:00 PM EDT Office Visit General Internal Medicine [facility] [address] [facility] [place], [place] [address] Ishaan Pepe MD [address] [facility] [place] [address] 10/25/2024 2:40 PM EDT Office Visit Hepatology, [facility] [address] [facility] [place] [id number] Marielena Khan DO [address] [place] [address] 12/15/2024 4:15 PM EDT Imaging Radiology [address], [place] [address] [place] [address] Scheduled Orders Name Type Priority Associated Diagnoses Orde r Schedule MRI LIVER W WO CONTRAST Medical Imaging Routine Liver cirrhosis secondary to nonalcoholic steatohepatitis (SOTOMAYOR) (HCC) Expected: 04/04/2024, Expires: 05/05/2025 Scheduled Procedures Name Priority Associated Diagnoses Date/Ti me COLONOSCOPY FLEXIBLE PROXIMA L DIAGNOSTIC Recall History of colonic polyps Health Maintenance Due Date Last Done Comments Cologuard 12/24/2012 Sigmoidoscopy 12/24/2012 *ADVANCE DIRECTIVE NOT ON FILE 03/12/2019 Diabetic Foot Exam 11/15/2020 11/16/2019, 0 09/21/2018, 08/06/2017, Additional history exists DISCUSS TOBACCO CESSATION (REFER TO SMARTSET #7758) 06/25/2023 06/24/2022, 05/27/2022, 05/19/2022, Additional history exists [...] D LEVEL ONCE IN A LIFETIME-USE SMARTSET# [id number] Completed 06/22/2023, 02/11/2023, 08/20/2022, Additional history exists [...] this encounter Medical Devices Implanted Type Area Mechanical Operator Device Identifier Shelf Expiration Date Model / Serial / Lot Snehalrodbrenton, Lead Kit, 60 Cm Implanted:Qty: 1 on 06/20/2016 by Kirti Devine MD at OR [facility] N/A: Spine Lumbar [employer] 11/21/2017 [id number] / [id number] / Guy, Lead Kit,60 Cm Implanted:Qty: 1 on 06/20/2016 by Kirti Devine MD at OR [facility] N/A: Spine Lumbar [employer] 05/02/2018 [id number] / [id number] / [place] 1192 - [id number] Implanted:Qty: 2 on 06/20/2016 by Kirti Devine MD at OR [facility] Left: Buttocks [employer] 06/27/2017 [id number] / / [id number] Battery Proclaim Elite 5 - [id number] - [id number] Implanted:Qty: 1 on 06/20/2016 by Kirti Devine MD at OR [facility] Left: Buttocks [employer] 05/27/2018 [id number] / [id number] / documented as of this encounter Visit [...] and myositis, unspecified Opioid dependence, uncomplicated (HCC) Liver cirrhosis secondary to nonalcoholic steatohepatitis (SOTOMAYOR) (HCC)- Primary Chest congestion Other symptoms involving respiratory system and chest Acute cough Screening mammogram for breast cancer documented in [...] patient or by statute hierarchy) Care Teams Ceramics Teacher Relationship Specialty Start Date End Date Ishaan Pepe MD [address] [place] [address] PCP - General Internal Medicine 07/18/21 documented as of this encounter
--- OUTSIDE RECORDS SUMMARY | 2024-06-30 07:07 | External Medical Summary | Summary of Care ---
Author Name Unknown Organization [facility] Address [address] [facility] [address] Phone [phone] Care Team Providers Care Prosecuting Attorney Name Role Phone Ishaan Pepe MD Primary Care Provider + Reason for Referral * Precert (Within 10 days (routine)) - Authorized Specialty Diagnoses / Procedures Referred By Contac t Referred To Contact Radiology Diagnoses Liver cirrhosis secondary to nonalcoholic steatohepatitis (SOTOMAYOR) (HCC) Procedures MRI LIVER W WO CONTRAST Marielena Khan DO [address] [place] [address] Phone: tel: fax: Referral ID Status Reason Start Date Expiration Date V isits Requested Visits Authorized [id number] Authorized 04/04/2024 999 999 Reason for Visit * Reason Comments Follow Up Cirrhosis Encounter Details Date Type Department Care Team (Latest Contact Info) Description 04/04/2024 10:40 AM EST Office Visit Hepatology, [facility] [address] [address] Marielena Khan DO [address] [place] [address] Liver cirrhosis secondary to nonalcoholic steatohepatitis (SOTOMAYOR) [...] 03/08/20 24 Active Vitamin A 3 MG (79415 UT) Oral Capsule (Aquasol-A) Take 1 Capsule [...] 1,000 mcgIndications:Intestinal postoperative nonabsorption 1000 mcg IM [id number] 06/22/2023 05/23/19 25 Active documented as of [...] dependence, uncomplicated 04/27/2020 Overview (07/30/2022): [facility] for [facility]oid addiction - takes [...] adult exam 08/08/2020 12/06/2021 Overview (10/22/2021): 10/18 [facility] stress echo normal EF, no CAD, Gr [...] (Oral) 973,05/25/1968,04/20/1968,02/25 Pneumococcal Conjugate Vacci ne, 20-valent ([id number]) 12/06/2021 Pneumococcal Polysaccharide PPV23 (Pneumovax) 02/15/2009 Rubella [...] Marijuana Documentation Certifying provider: Unknown Authorized Dispensary: [facility] Certified Condition(s): pain Dosage product provided? [...] performed by Alice Cotton MD at ENDOSCOPY [facility] COLONOSCOPY, DIAGNOSTIC (RECTUM) 06/29/2018 poor prep, repeat / COLONOSCOPY FLEXIBLE PROXIMAL DIAGNOSTIC performed by Alice Cotton MD at [facility] COLONOSCOPY, DIAGNOSTIC (RECTUM) 06/30/2018 biopsies show hyperplastic polyps/COLONOSCOPY FLEXIBLE PROXIMAL DIAGNOSTIC performed by Deandra Caballero MD at [facility] COLONOSCOPY, DIAGNOSTIC (RECTUM) N/A 11/24/2022 hemorrhoids/recall 5 years/COLONOSCOPY FLEXIBLE PROXIMAL DIAGNOSTIC performed by Mark Baptiste DO at OR [facility] EGD, FLEXIBLE, DIAGNOSTIC 05/14/2017 erosive gastropathy, duodenitis/ESOPHAGOGASTRODUODENOSCOPY (EGD), FLEXIBLE, TRANSORAL, DIAGNOSTIC performed by Alice Cotton MD at [facility] EGD, FLEXIBLE, DIAGNOSTIC 08/21/2017 mild gastritis/ESOPHAGOGASTRODUODENOSCOPY (EGD), FLEXIBLE, TRANSORAL, DIAGNOSTIC performed by Alice Cotton MD at [facility] EGD, FLEXIBLE, DIAGNOSTIC N/A 04/28/2018 ESOPHAGOGASTRODUODENOSCOPY (EGD), FLEXIBLE, TRANSORAL, DIAGNOSTIC performed by Agata Costa [place] [facility] EGD, FLEXIBLE, DIAGNOSTIC 06/29/2018 GJ inflammation & severe stenosis, repeat 2 wks/ESOPHAGOGASTRODUODENOSCOPY (EGD), FLEXIBLE, TRANSORAL, DIAGNOSTIC performed by Alice Cotton MD at [facility] EGD, FLEXIBLE, DIAGNOSTIC 07/14/2018 anastomotic stenosis, repeat 2 wks/ESOPHAGOGASTRODUODENOSCOPY (EGD), FLEXIBLE, TRANSORAL, DIAGNOSTIC performed by Alice Cotton MD at [facility] EGD, FLEXIBLE, DIAGNOSTIC 07/28/2018 normal/ESOPHAGOGASTRODUODENOSCOPY (EGD), FLEXIBLE, TRANSORAL, DIAGNOSTIC performed by Alice Cotton MD at [facility] EGD, FLEXIBLE, DIAGNOSTIC 10/21/2018 normal bx/ESOPHAGOGASTRODUODENOSCOPY (EGD), FLEXIBLE, TRANSORAL, DIAGNOSTIC performed by Deandra Caballero MD at [facility] EGD, FLEXIBLE, DIAGNOSTIC N/A 05/13/2019 ESOPHAGOGASTRODUODENOSCOPY (EGD), FLEXIBLE, TRANSORAL, DIAGNOSTIC performed by Agata Monaco [facility] EGD, FLEXIBLE, DIAGNOSTIC 01/27/2020 gastritis / ESOPHAGOGASTRODUODENOSCOPY (EGD), FLEXIBLE, TRANSORAL, DIAGNOSTIC performed by Deandra Caballero MD at [facility]COPY [facility] EGD, FLEXIBLE, DIAGNOSTIC 07/18/2021 normal / ESOPHAGOGASTRODUODENOSCOPY (EGD), FLEXIBLE, TRANSORAL, DIAGNOSTIC performed by Nikko Martino MD at [facility]COPY [facility] EGD, FLEXIBLE, DIAGNOSTIC N/A 11/24/2022 normal/ESOPHAGOGASTRODUODENOSCOPY (EGD), FLEXIBLE, TRANSORAL, DIAGNOSTIC performed by Mark Baptiste DO at OR [facility] EGD, FLEXIBLE, TRANSENDOSCOPIC DILATION <30MM N/A 07/07/2018 ESOPHAGOGASTRODUODENOSCOPY (EGD), FLEXIBLE, TRANSORAL, BALLOON DILATION LESS THAN 30MM performed byJose E Callahan MD at [facility] EGD, FLEXIBLE,W/ENDOSCOPIC US 09/05/2016 fatty liver, gastric & duodenal ulcers, normal bx, repeat EGD 2 mo/[facility] EVAL NEUROSTIM PULSE GEN, W/ REPROGRAM N/A 04/18/2016 NEUROSTIMULATOR PULSE GENERATOR/ TRANSMITTER, WITH INTRAOPERATIVE OR SUBSEQUENT PROGRAMMING performed by Kirti Devine MD at OR [facility] EVAL NEUROSTIM PULSE GEN, W/ REPROGRAM N/A 06/20/2016 NEUROSTIMULATOR PULSE GENERATOR/ TRANSMITTER, WITH INTRAOPERATIVE OR SUBSEQUENT PROGRAMMING performed by Kirti Devine MD at OR [facility] IMPLANT EPIDURAL NEUROELECTRODES N/A 04/18/2016 PERCUTANEOUS IMPLANTATION NEUROSTIMULATOR EPIDURAL performed by Kirti Devine MD at OR [facility] IMPLANT EPIDURAL NEUROELECTRODES N/A 06/20/2016 PERCUTANEOUS IMPLANTATION NEUROSTIMULATOR EPIDURAL performed by Kirti Devine MD at OR [facility] IMPLANT SPINAL NEURORECEIVER N/A 06/20/2016 INSERTION OR REPLACEMENT SPINAL NEUROSTIMULATOR GENERATOR performed by Kirti Devine MD at OR [facility] IMPLANT SPINAL NEURORECEIVER Left 08/09/2020 INSERTION OR REPLACEMENT SPINAL NEUROSTIMULATOR GENERATOR performed by Victor Manuel Scott MD at OR [facility] INFORMATION breast surgery x2 INFORMATION back surgery x2 LAPAROSCOPE PROCEDURE, LIVER N/A 04/28/2018 UNLISTED LAPAROSCOPIC PROCEDURE LIVER performed by Jose E Callahan MD at [facility] LAPAROSCOPIC GASTRIC BYPASS/BAKARI-EN-Y N/A 04/28/2018 LAPAROSCOPIC GASTRIC RESTRICTIVE BYPASS BAKARI EN Y performed by Jose E Callahan MD at [facility] LUMBAR HEMILAMINECTOMY L4-5 in and L3-4 in OTHER PERIPHERAL NERVE NEUROPLASTY, ARM/LEG Right 03/31/2019 NEUROPLASTY MAJOR PERIPHERAL NERVE ARM OR LEG performed by Elmer Sanford MD at [place] [facility] REMOVAL OF APPENDIX REMOVAL OF OVARY(S) 2007 [...] 60 Tablet 0 Vitamin A 3 MG (29516 UT) Oral Capsule (Aquasol-A) Take 1 Capsule [...] 06/22/2024 2:00 PM EDT Office Visit Rheumatology, [address], [place] [address] Omega Galvin PA-C [facility] [place] [address] 07/26/2024 2:30 PM EDT Office Visit Gastroenterology, [facility] [address] Kishore Regalado [facility] [address] [facility] [address] 09/06/2024 3:40 PM EDT Office Visit Pulmonary Medicine, [facility] [place] [address] Iker Toney MD [address] [place] [facility] [place] [address] 09/27/2024 2:00 PM EDT Office Visit General Internal Medicine [facility] 200 [facility] [place], [place] [address] Ishaan Pepe MD 200 [facility] [place] [address] 12/15/2024 4:15 PM EDT Imaging Radiology [facility] [address] [facility] [address] Scheduled Orders Name Type Priority Associated Diagnoses [...] exists DISCUSS TOBACCO CESSATION (REFER TO SMARTSET #[id number]) 06/25/2023 06/24/2022, 05/27/2022, 05/19/2022, Additional history exists [...] 12/14/2024 12/15/2023, 11/28, 12/08/2022, Additional history exists O2 ASSESSMENT COMPLETED IN PAST YEAR FOR COPD 02/28/2025 02/29/2024 GFR 03/10/2025 03/10/2024, 10/28, 09/01/2023, Additional history exists Colonoscopy 11/25/2027 11/24/2022, 10/29, [...] D LEVEL ONCE IN A LIFETIME-USE SMARTSET# [id number] Completed 06/22/2023, 02/11/2023, 08/20/2022, Additional history exists [...] this encounter Medical Devices Implanted Type Area Protective Signal Installer Device Identifier Shelf Expiration Date Model / Serial / Lot Octrode, Lead Kit, 60 Cm Implanted:Qty: 1 on 06/20/2016 by Kirti Devine MD at OR [facility] N/A: Spine Lumbar [employer] 11/21/2017 3186 / [id number] / Octrode, Lead Kit,60 Cm Implanted:Qty: 1 on 06/20/2016 by Kirti Devine MD at OR [facility] N/A: Spine Lumbar [employer] 05/02/2018 [id number] / [id number] / [place] 1192 - [id number] Implanted:Qty: 2 on 06/20/2016 by Kirti Devine MD at OR [facility] Left: Buttocks [employer] 06/27/2017 [id number] / / [id number] Battery [employer] Elite 5 - [id number] - [id number] Implanted:Qty: 1 on 06/20/2016 by Kirti Devine MD at OR [facility] Left: Buttocks [employer] 05/27/2018 [id number] / [id number] / documented as of this encounter Visit [...] patient or by statute hierarchy) Care Teams Prosecuting Attorney Relationship Specialty Start Date End Date Ishaan Pepe MD [address] [place] [address] PCP - General Internal Medicine 07/18/21 documented as of this encounter
--- OUTSIDE RECORDS SUMMARY | 2024-06-30 07:07 | External Medical Summary ---
Author Name Unknown Address Unknown Organization K01:LABORATORY [facility] - [address] [facility] [place]. [place] [address] Laboratory Report Ordering Provider Test Date Status DAMARI CASTILLO 04/20/2024 14:52:51 Final Observation Date Value Abnormality Reference (Units ) Status Bacteria identified in Specimen by Culture 04/20/2024 14:52:51 [id number]^ENTEROC OCCUS SPECIES Abnormal Final >100,000 colonies/mL Enteroc occus species Bacteria identified in Specimen by Culture 04/20/2024 14:52:51 [id number]^AEROCOCCUS URINAE Abnormal Final 10,000 to 100,000 colonies/m L Aerococcus urinae
Routine antimicrobial susceptibility testing methods and standardized interpretation criteria are not available for Aerococcus species. Aerococcus urinae has been described as susceptible to penicillin, amoxicillin and nitrofurantoin, but resistant to
sulfonamides. Performing Location [facility] - [address] [facility] [place] [facility] [address] Ordering Provider Test Date Status DAMARI CASTILLO 04/20/2024 14:52:51 Final Observation Date Value Abnormality Reference (Units ) Status Ampicillin 04/20/2024 14:52:51 <=2 Susceptible Final Nitrofurantoin susceptibility 04/20/2024 14:52:51 32 Susceptible Final Tetracyclinesusceptibility 04/20/2024 14:52:51 >=16 Resistant Final Vancomycinsusceptibility 04/20/2024 14:52:51 1 Susceptible Final Test: Culture, Urine, Quanti tative
Specimen Source: Urine, Clean Catch
Specimen Type: Urine
Specimen Date: 04/20/2024 1452
Result Date: 04/23/2024 1322
Result Status: Final result
Abnormal: Yes
Resulting Lab: LAB[facility]ATORY [facility]
[address]
[place] [address]

CULTURE

>100,000 colonies/mL Enterococcus species (Abnormal)

10,000 to 100,000 colonies/mL Aerococcus urinae (Abnormal)

Routine antimicrobial susceptibility testing methods and standardized
interpretation criteria are not available for Aerococcus species.
Aerococcus urinae has been described as susceptible to penicillin,
amoxicillin and nitrofurantoin, but resistant to sulfonamides.

SUSCEPTIBILITY

Enterococcus
species
METHOD MICROBROTH
DILUTIONS

AMPICILLIN <=2 Susceptible
NITROFURANTOIN 32 Susceptible
TETRACYCLINE >=16 Resistant
VANCOMYCIN 1 Susceptible

[facility] Performing Location LABORATORY [facility] - [address] [facility] [address]
--- OUTSIDE RECORDS SUMMARY | 2024-06-30 07:07 | External Medical Summary ---
Author Name Unknown Address Unknown Organization K01:[facility] [place] [address] [facility] [address] Laboratory Report Ordering Provider Test Date Status JONATHAN,DOBONG 04/20/2024 14:52:51 Final Observation Date Value Abnormality Reference (Units ) Status Color of Urine by Auto 04/20/2024 14:52:51 Yellow Colorless, Light Yellow, Yellow, Dark Yellow Final Clarity, Urine 04/20/2024 14:52:51 Clear Clear Final Glucose [Mass/volume] in Urine by Automated test strip 04/20/2024 14:52:51 Negative Negative (mg/dL) Final Bilirubin.total [Presence] in Urine by Automated test strip 04/20/2024 14:52:51 Negative Negative Final Ketones [Mass/volume] in Urine by Automated test strip 04/20/2024 14:52:51 Negative Negative (mg/dL) Final Specific gravity, Urine 04/20/2024 14:52:51 1.012 1.003-1.030 Final Hemoglobin [Presence] in Urine by Automated test strip 04/20/2024 14:52:51 Negative Negative Final pH, Urine 04/20/2024 14:52:51 6.0 5.0-7.5 (Units) Final Protein [Mass/volume] in Urine by Automated test strip 04/20/2024 14:52:51 Negative Negative (mg/dL) Final Urobilinogen [Mass/volume] in Urine by Automated test strip 04/20/2024 14:52:51 2.0 Abnormal Normal (mg/dL) Final Nitrite [Presence] in Urine by Automated test strip 04/20/2024 14:52:51 Negative Negative Final Leukocyte esterase [Presence] in Urine by Automated test strip 04/20/2024 14:52:51 Moderate Abnormal Negative Final RBC, Urine 04/20/2024 14:52:51 0-2 0-2 (/HPF) Final WBC, Urine 04/20/2024 14:52:51 10-19 Abnormal 0-2 (/HPF) Final Bacteria [#/area] in Urine sediment by Microscopy high power field 04/20/2024 14:52:51 151-200 Abnormal 0-25 (/HPF) Final Transitional cells [#/area] in Urine sediment by Microscopy high power field 04/20/2024 14:52:51 1-4 Abnormal None (/HPF) Final CULTURE, URINE - ISINGER 04/20/2024 14:52:51 Final Quantitative urine culture t o be performed Performing Location [facility] [place] - [address] [facility] [address]
--- OUTSIDE RECORDS SUMMARY | 2024-06-30 07:07 | External Medical Summary ---
Author Name Unknown Address Unknown Organization [id number]:LABORATORY [facility] [place] [address] Laboratory Report Ordering Provider Test Date Status LOKESH MENENDEZ 06/20/2024 22:56:19 Final Observation Date Value Abnormality Reference (Units ) Status WBC, Total 06/20/2024 22:56:19 5.11 4.00-10.80 (K/uL) Final RBC 06/20/2024 22:56:19 4.26 3.85-5.15 (M/uL) Final Hemoglobin 06/20/2024 22:56:19 10.5 Below low normal 12.0-15.3 (g/dL) Final HCT 06/20/2024 22:56:19 34.7 Below low normal 36.0-45.2 (%) Final MCV 06/20/2024 22:56:19 81.5 81.5-97.5 (fL) Final MCH 06/20/2024 22:56:19 24.6 27.0-34.0 (pg) Final MCHC 06/20/2024 22:56:19 30.3 32.0-36.0 (g/dL) Final RDW 06/20/2024 22:56:19 15.4 11.5-15.5 (%) Final Platelets 06/20/2024 22:56:19 157 140-400 (K/uL) Final MPV 06/20/2024 22:56:19 12.9 6.6-11.1 (fL) Final Nucleated erythrocytes/100 leukocytes [Ratio] in Blood by Automated count 06/20/2024 22:56:19 0 <=0 (/100 WBCs) Final Performing Location LABORATORY [facility] - [address] [place] [address]
--- OUTSIDE RECORDS SUMMARY | 2024-06-30 07:07 | External Medical Summary | Summary of Care ---
Author Name Unknown Organization [facility] Address [address] [place] [address] Phone [phone] Care Team Providers Care Tungsten Tender Name Role Phone Ishaan Pepe MD Primary Care Provider + Encounter Details Date Type Department Care Team (Late st Contact Info) Description 04/18/2024 Population Health External Data Unspecified Department Allergies Active Allergy Reactions Criticality Noted Date Comments Adhesive Tape Rash 01/05/2009 Iodinated Contrast Media Tachypnea 07/02/2022 Povidone-Iodine 10/05/2018 Other reaction(s): . Omeprazole Anaphylaxis High 01/03/2010 Tongue itchy, ear throbbing documented as of this encounter (statuses as of 04/18/2024) Medications Up4 Probiotics Womens Oral Capsule Take by mouth. Activ e Calcium Citrate 250 MG Oral Tablet Take 2 Tablets by mouth in the morning and 2 Tablets before bedtime. Active Buprenorphine HCl 8 MG Sublingual Tablet Sublingual (Subutex) Place 1 Tablet under the tongue 4 times a day. 90 Tablet 06/03/19 Active Synthroid 112 MCG Oral TabletIndications: Acquired hypothyroidism Take 1 Tablet by mouth in the morning. (at least 30 min prior to breakfast or other meds). 90 Tablet 3 4 8:19 AM EDT 03/24/20 Active Methenamine Mandelate 0.5 GM Oral Tablet [...] Tablet 03/08/20 Active Vitamin A 3 MG (56170 UT) Oral Capsule (Aquasol-A) Take 1 Capsule by mouth in the morning. 03/18/20 Active ProAir HFA 108 (90 Base) MCG/ACT Inhalation Aerosol SolutionIndication s:Chest congestion,Acute cough Inhale 2 Puffs by mouth every 4 hours as needed for Wheezing. 18 g 11 04/04/19 Active Hospital, Clinic, or Other Facility Administered Medication Ordered Dose Route Frequency Start Date End Date Status vitamin b-12 (Cyanocobalamin) inj 1,000 mcgIndications:Intestinal postoperative nonabsorption 1000 mcg IM [id number] 06/22/2023 05/23/19 Active documented as of this encounter (statuses as of 04/18/2024) Active Problems Problem Noted Date Diagnosed Date [...] as of this encounter (statuses as of 04/18/2024) Resolved Problems Problem Noted Date Diagnosed Date [...] Overview (10/22/2021): 10/18 [facility] stress echo normal EF, no CAD, Gr [...] as of this encounter (statuses as of 04/18/2024) Immunizations Name Administration Dates Next Due DT - Diptheria/Tetanus (PEDS) 11/14/1985 ,06/30/1972,05/25/1968,04/20,02/26/1968 Hepatitis B, 20+ yrs 02/06/2014,09/06/2013,08/09 MMR-LUKE - Measles/Mumps/Rubella/Varicella Vaccine 10/13/1972 OPV - Polio Virus Vaccine (Oral) 973,05/25/1968,04/20/1968,02/25 Pneumococcal Conjugate Vacci ne, 20-valent ([id number]) 12/06/2021 Pneumococcal Polysaccharide PPV23 (Pneumovax) 02/15/2009 Rubella [...] 06/22/2024 2:00 PM EDT Office Visit Rheumatology, [address] [address] Omega Galvin PA-C [facility]0 [facility] [place], [place] [address] 07/26/2024 2:30 PM EDT Office Visit Gastroenterology, [facility] 132 [place] [address] Kishore Regalado CRNP 132 [facility] [place] [address] 09/06/2024 3:40 PM EDT Office Visit Pulmonary Medicine, [facility] 132 [place] [address] Iker Toney MD [address] [place] [address] 09/27/2024 2:00 PM EDT Office Visit General Internal Medicine [facility] [place] [address] [place] [address] Ishaan Pepe MD 200 [facility] [place], [place] [address] 10/25/2024 2:40 PM EDT Office Visit Hepatology, [facility] [address] [place] [phone] Kathryn Crespo, [address] [place] [address] 12/15/2024 4:15 PM EDT Imaging Radiology [address] [place] [address] Scheduled Procedures Name Priority Associated Diagnoses Date/Ti me COLONOSCOPY FLEXIBLE PROXIMA L DIAGNOSTIC Recall History of colonic polyps Health Maintenance Due Date Last Done Comments Cologuard 12/24/2012 Sigmoidoscopy 12/24/2012 *ADVANCE DIRECTIVE NOT ON FILE 03/12/2019 Diabetic Foot Exam 11/15/2020 11/16/2019, 0 09/21/2018, 08/06/2017, Additional history exists DISCUSS TOBACCO CESSATION (REFER TO SMARTSET #4829) 06/25/2023 06/24/2022, 05/27/2022, 05/19/2022, Additional history exists [...] D LEVEL ONCE IN A LIFETIME-USE SMARTSET# 75134 Completed 06/22/2023, 02/11/2023, 08/20/2022, Additional history exists [...] this encounter Medical Devices Implanted Type Area Agricultural Extension Agent Device Identifier Shelf Expiration Date Model / Serial / Lot Octrode, Lead Kit, 60 Cm Implanted:Qty: 1 on 06/20/2016 by Kirti Devine MD at OR [facility] N/A: Spine Lumbar [employer] 11/21/2017 [id number] / [id number] / Octrode, Lead Kit,60 Cm Implanted:Qty: 1 on 06/20/2016 by Kirti Devine MD at OR [facility] N/A: Spine Lumbar [employer] 05/02/2018 [id number] / [id number] / [place] 1192 - [id number] Implanted:Qty: 2 on 06/20/2016 by Kirti Devine MD at OR [facility] Left: Buttocks [employer] 06/27/2017 [id number] / / [id number] Battery [employer] Elite 5 - [id number] - [id number] Implanted:Qty: 1 on 06/20/2016 by Kirti Devine MD at OR [facility] Left: Buttocks [employer] 05/27/2018 [id number] / [id number] / documented as of this encounter Advance [...] Relationship Healthcare Agent Relationshi p Communication Jemal [place] Spouse Health Care Repr esentative (appointed verbally by patient or by statute hierarchy) Care Teams Tungsten Tender Relationship Specialty Start Date End Date Ishaan Pepe MD [address] [place] [address] PCP - General Internal Medicine 07/18/21 documented as of this encounter
--- OUTSIDE RECORDS SUMMARY | 2024-06-30 07:07 | External Medical Summary | Summary of Care ---
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 Name Role Phone Ishaan Pepe MD Primary Care Provider + Reason for Visit * Reason Onset Date Comments Advice 05/26/2024 Encounter Details Date Type Department Care Team (Late st Contact Info) Description 05/26/2024 Telephone Gastroenterology, [facility] [address] [place] [address] Kishore Regalado CRNP [address] [facility] [place] [address] Advice Allergies Active Allergy Reactions Criticality Noted [...] 03/08/20 24 Active Vitamin A 3 MG (90466 UT) Oral Capsule (Aquasol-A) Take 1 Capsule [...] dependence, uncomplicated 04/27/2020 Overview (07/30/2022): 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 (Household - [...] - 05/26/2024 4:13 PM EST DA FROM [employer] JUST EMAILED BACK I HAD TO CALL AND LEAVE COLLEEN Randi MERINO ABOUT NEEDING WHICH [facility] NPI AND TAX ID INFORMATION BEFORE THEY CAN PRE CERT THE MRI. * Telephone Encounter - Nancy Overton OSA - 05/26/2024 3:24 PM EST Email send to the [employer] email waiting for the response back. * Telephone Encounter - Lewis Jones LPN - 05/26/2024 2:21 PM EST Colleen from [facility] is calling stating the patient needs an authorization for herMRI. Spoke with scheduling who stated that they needed some more time to process the authorization,and instructed me to take down Colleen's contact information. [phone] Phone number [phone] Fax number documented in this encounter Plan of Treatment Upcoming Encounters Date Type Department Care Team (Late st Contact Info) Description 06/22/2024 2:00 PM EDT Office Visit Rheumatology, [address] [address] Omega Galvin, PAKalpesh [address] [facility] [place] [address] 07/26/2024 2:30 PM EDT Office Visit Gastroenterology, [facility] [address] [place] [address] Kishore Regalado CRNP [address] [place] [address] 09/06/2024 3:30 PM EDT Office Visit Pulmonary Medicine, [facility] [address] [facility] [address] [facility] [facility] [place] [address] Iker Toney MD [address] [facility] [address] 09/27/2024 2:00 PM EDT Office Visit General Internal Medicine [facility] [address] [place], [place] [address] Ishaan Pepe MD [address] [place], [place] [address] 10/25/2024 2:40 PM EDT Office Visit Hepatology, [address] [phone] Kathryn Crespo DO [address] [facility] [place] [address] 12/15/2024 4:15 PM EDT Imaging Radiology [facility] [address] [facility] [address] [place] [phone] Scheduled Procedures Name Priority Associated Diagnoses Date/Ti me COLONOSCOPY FLEXIBLE PROXIMA L DIAGNOSTIC Recall History of colonic polyps Health Maintenance Due Date Last Done Comments Cologuard 12/24/2012 Sigmoidoscopy 12/24/2012 *ADVANCE DIRECTIVE NOT ON FILE 03/12/2019 Diabetic Foot Exam 11/15/2020 11/16/2019, 0 09/21/2018, 08/06/2017, Additional history exists DISCUSS TOBACCO CESSATION (REFER TO SMARTSET #3101) 06/25/2023 06/24/2022, 05/27/2022, 05/19/2022, Additional history exists [...] D LEVEL ONCE IN A LIFETIME-USE SMARTSET# 55021 Completed 06/22/2023, 02/11/2023, 08/20/2022, Additional history exists [...] this encounter Medical Devices Implanted Type Area Logistics/Shipper Device Identifier Shelf Expiration Date Model / Serial / Lot Octrode, Lead Kit, 60 Cm Implanted:Qty: 1 on 06/20/2016 by Kirti Devine MD at OR [facility] N/A: Spine Lumbar [employer] 11/21/2017 [id number] / [id number] / Octrode, Lead Kit,60 Cm Implanted:Qty: 1 on 06/20/2016 by Kirti Devine MD at OR [facility] N/A: Spine Lumbar [employer] 05/02/2018 [id number] / [id number] / [place] 1192 - [id number] Implanted:Qty: 2 on 06/20/2016 by Kirti Devine MD at OR [facility] Left: Buttocks [employer] 06/27/2017 [id number] / / [id number] Battery [employer] Elite 5 - [id number] - [id number] Implanted:Qty: 1 on 06/20/2016 by Kirti Devine MD at OR [facility] Left: Buttocks [employer] 05/27/2018 [id number] / [id number] / documented as of this encounter Advance [...] Name Relationship Healthcare Agent Relationshi p Communication [facility] Spouse Health Care Repr esentative (appointed verbally by patient or by statute hierarchy) Care Teams Welding Machine Operator Gas Metal Arc Relationship Specialty Start Date End Date Ishaan Pepe MD [address] [facility] [place] [address] PCP - General Internal Medicine 07/18/21 documented as of this encounter
--- OUTSIDE RECORDS SUMMARY | 2024-06-30 07:07 | External Medical Summary ---
Author Name Unknown Address Unknown Organization K1F:[facility] - [place] [address] Laboratory Report Ordering Provider Test Date Status LOKESH MENENDEZ 06/20/2024 22:56:19 Final Observation Date Value Abnormality Reference (Units ) Status Troponin T 06/20/2024 22:56:19 23 Above high normal < =14 (ng/L) Final Performing Location [facility] - [address] [place] [address]
--- OUTSIDE RECORDS SUMMARY | 2024-06-30 07:07 | External Medical Summary ---
Author Name Unknown Address Unknown Organization K1F:[facility] - [address] [place] [address] Laboratory Report Ordering Provider Test Date Status SHONLOKESH 06/20/2024 22:56:19 Final Observation Date Value Abnormality Reference (Units ) Status SYNC LEUKOCYTES IN BLOOD BY AUTOMATED COUNT 06/20/2024 22:56:19 5.11 4.00-10.80 (K/uL) Final Segs 06/20/2024 22:56:19 48.1 40.0-75.0 (%) Final Lymphs % 06/20/2024 22:56:19 40.1 18.0-42.0 (%) Final Monos 06/20/2024 22:56:19 10.2 1.0-11.0 (%) Final Eosinophils 06/20/2024 22:56:19 1.0 0.0-6.0 (%) Final Basos 06/20/2024 22:56:19 0.4 0.0-2.0 (%) Final Immature Granulocyte, Percent 06/20/2024 22:56:19 0.2 0.0-2.0 (%) Final Absolute Segs 06/20/2024 22:56:19 2.46 1.80-7.70 (K/uL) Final Lymphs, absolute 06/20/2024 22:56:19 2.05 1.00-4.80 (K/ul) Final Monos, Abs 06/20/2024 22:56:19 0.52 0.00-1.10 (K/uL) Final Eos, Abs 06/20/2024 22:56:19 0.05 0.00-0.70 (K/uL) Final Basos, Abs 06/20/2024 22:56:19 0.02 0.00-0.20 (K/uL) Final Immature Granulocytes, Number 06/20/2024 22:56:19 0.01 0.00-0.20 (K/uL) Final Performing Location LABORATORY [facility] - [address] [facility] [address] [place] [address]
--- OUTSIDE RECORDS SUMMARY | 2024-06-30 07:08 | External Medical Summary | Summary of Care ---
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 Aerospace Assembler Name Role Phone Ishaan Pepe MD Primary Care Provider + Reason for Visit * Reason Onset Date Comments Re-Check Routine check up Leg Pain Left thigh - sta rted about 1 week ago - states she did not injure it Referral Discuss referral for liver Urinary Tract Infection Symptoms Dysuria - started a couple days ago Medication Administration 03/18/2024 Flu an d/or Pneumo Inj Encounter Details Date Type Department Care Team (Latest Contact Info) Description 03/18/2024 12:40 PM EST Office Visit General Internal Medicine [facility] [address] [place] [address] Ishaan Pepe MD [address] [place] [address] Liver cirrhosis secondary to nonalcoholic steatohepatitis (SOTOMAYOR) (HCC)*; Acquired hypothyroidism; Chronic deep vein thrombosis (DVT) of right peroneal vein (HCC); COPD, group D, by GOLD 2017 classification (HCC); High risk for fracture due to osteoporosis by DEXA scan; Iron deficiency anemia secondary to inadequate dietary iron intake; Severe tobacco use disorder; Type 2 diabetes mellitus without complication, without long-term current use of insulin (HCC); Need for prophylactic vaccination and inoculation against influenza; Liver mass; Dysuria; Vitamin A deficiency; S/P gastric bypass; Left groin pain Allergies Active Allergy Reactions Criticality Noted Date Comments Adhesive Tape Rash 01/05/2009 Iodinated Contrast Media Tachypnea 07/02/2022 Povidone-Iodine 10/05/2018 Other reaction(s): . Omeprazole Anaphylaxis High 01/03/2010 Tongue itchy, ear throbbing documented as of this encounter (statuses as of 03/18/2024) Medications ProAir HFA 108 (90 Base) MCG/ACT Inhalation Aerosol SolutionIndication s:Chest congestion,Acute cough Inhale 2 Puffs by mouth every 4 hours as needed for Wheezing. 18 g 11 02/13/20 22 Active Additional Information Patient not taking.Reported on 03/18/2024 Up4 Probiotics Womens Oral Capsule Take by [...] Active Additional Information Patient not taking.Reported on 03/18/2024 Estradiol 0.1 MG/GM Vaginal Cream (Estrace) Administer [...] taking differently:30 g OralTID PRN, Reported on 03/18/2024 Furosemide 40 MG Oral Tablet (Lasix)Indications :Liver cirrhosis secondary to nonalcoholic steatohepatitis (SOTOMAYOR) (HCC),Leg edema, right Take 1 pill in the morning daily as needed for edema 11/10/19 24 Active Ondansetron HCl 8 MG Oral Tablet (Zofran)Indication s:Nausea TAKE ONE TABLET BY MOUTH EVERY 8 HOURS NEEDED FOR NAUSEA. 180 Tablet 2 4 9:50 AM EDT 12/28/19 24 Active Mirtazapine 30 MG Oral Tablet (Remeron) TAKE ONE TABLET BY MOUTH AT BEDTIME 90 Tablet 2 4 9:50 AM EDT 12/28/19 24 2024 Active Varenicline Tartrate 1 MG Oral Tablet (Chantix)Indicatio ns:Tobacco use Take 1 Tablet by mouth in the morning and 1 Tablet before bedtime. 60 Tablet 03/08/20 24 Active Vitamin A 3 MG (91220 UT) Oral Capsule (Aquasol-A) Take 1 Capsule by mouth in the morning. 03/18/20 24 Active Vitamin D3 50 MCG (2000 UT) Oral CapsuleIndications :Vitamin D deficiency Take 1 Capsule by mouth in the morning. 90 Capsule 3 4 9:12 AM EDT 10/22/19 23 2023 Disconti nued(Pat ient preferen ce/disco ntinuati on) Methocarbamol 750 MG Oral Tablet (Robamol) TAKE ONE TABLET BY MOUTH IN THE MORNING AND ONE TABLET AT NOON AND ONE TABLET BEFORE BEDTIME FOR MUSCLE SPASM 180 Tablet 3 4 3:15 PM EST 05/15/19 24 2023 Disconti nued(Pat ient preferen ce/disco ntinuati on) Sulfamethoxazole-T rimethoprim 800-160 MG Oral Tablet (Bactrim DS)Indications:Acu te cystitis with hematuria Take 1 Tablet by mouth in the morning and 1 Tablet before bedtime. Do all this for 5 days. Until gone. 10 Tablet 02/29/20 24 2023 Disconti nued(Ref ill) LORazepam 1 MG Oral Tablet (Ativan)Indication s:Anxiety Take one hour prior to MRI 1 Tablet 03/09/20 24 2023 Disconti nued(Med ication List Clean Up) Hospital, Clinic, or Other Facility Administered Medication Ordered Dose Route Frequency Start Date End Date Status vitamin b-12 (Cyanocobalamin) inj 1,000 mcgIndications:Intestinal postoperative nonabsorption 1000 mcg IM [id number] 06/22/2023 05/23/19 Active documented as of this encounter (statuses as of 03/18/2024) Active Problems Problem Noted Date Diagnosed Date [...] as of this encounter (statuses as of 03/18/2024) Resolved Problems Problem Noted Date Diagnosed Date [...] adult exam 08/08/2020 12/06/2021 Overview (10/22/2021): 10/18 [facility] stress echo normal EF, no CAD, [...] as of this encounter (statuses as of 03/18/2024) Immunizations Name Administration Dates Next Due DT - Diptheria/Tetanus (PEDS) 11/14/1985 ,06/30/1972,05/25/1968,04/20,02/26/1968 Hepatitis B, 20+ yrs 02/06/2014,09/06/2013,08/09 MMR-LUKE - Measles/Mumps/Rubella/Varicella Vaccine 10/13/1972 OPV - Polio Virus Vaccine (Oral) 973,05/25/1968,04/20/1968,02/25 Pneumococcal Conjugate Vacci ne, 20-valent ([id number]) 12/06/2021 Pneumococcal Polysaccharide PPV23 (Pneumovax) 02/15/2009 Rubella [...] Tobacco: Never Tobacco Cessation:Ready to Q uit: Yes; Counseling Given: No Alcohol Use Standard Drinks/Week Comments No 0 [...] No 11/01/2022 Does the household have a [facility] source of income? (Household - for ages [...] Sign Reading Time Taken Comments Blood Pressure 128/76 03/18/2024 12:31 PM EST Pulse 80 03/18/2024 12:31 PM EST Temperature 37.2 °C (98.9 °F) 03/18/2024 12:[address] Respiratory Rate 16 03/18/2024 12:31 PM EST Oxygen Saturation - - Inhaled Oxygen Concentration - - Weight 67.3 kg (148 lb 6.4 oz) 03/18/2024 12:31 PM EST Height - - Body Mass Index 26.29 09/07/2023 3:43 PM EDT documented in this encounter Functional [...] Sushil Arcos RN documented in this encounter Patient Instructions * Patient Instructions* Дмитрий Puente RN - 03/18/2024 12:33 PM EST ~~PATIENT INSTRUCTIONS FOR FLU SHOT~~ Possible side effects of influenza vaccine, (flu shot), are usually mild and include: 1. Soreness or redness at injection site 2. Low grade fever 3. Body aches You may use Tylenol/Acetaminophen as needed for these symptoms. LET YOUR DOCTOR KNOW IMMEDIATELY IF YOU HAVE DIFFICULTY BREATHING OR SWALLOWING, EXPERIENCE ITCHINGOF FEET OR HANDS, HAVE SWELLING OF EYES, FACE OR INSIDE OF NOSE. documented in this encounter Progress Notes * Ishaan Pepe MD - 03/18/2024 1:11 PM EST Chief Complaint Patient presents with Re-Check Routine check up Leg Pain Left thigh - started about 1 week ago - states she did not injure it Referral Discuss referral for liver Urinary Tract Infection Symptoms Dysuria - started a couple days ago Medication Administration Flu and/or Pneumo Inj SUBJECTIVE: Arely Hester is a 58 year old female with PMH as below who presents for follow up liver cirrhosis, h/o gastric bypass, tobacco use, no cp, sob, muñoz, feels good overall! [facility] seek [facility] opinion in [place] or [facility]. Is smoking and cutting back on own,plans to quit soon. Has some urinary burning for a couple days, has been doing good urinary khan oth erwise. Also c/o left thigh/groin pain 1 week, no falls or trauma, hurts to walk but is able to walk. Taking vit A. Patient Active Problem List Diagnosis Acquired hypothyroidism Fibromyalgia Postlaminectomy syndrome, lumbar Thoracic and lumbosacral neuritis Mixed hyperlipidemia Severe tobacco use disorder S/P gastric bypass Stricture of esophagus Peroneal palsy, right Migraine variant Idiopathic peripheral neuropathy Liver cirrhosis secondary to nonalcoholic steatohepatitis (SOTOMAYOR) (HCC) Hx of transient ischemic attack (TIA) Opioid dependence, uncomplicated (HCC) Gastro-esophageal reflux disease without esophagitis Intestinal postoperative nonabsorption History of depression Constipation Other osteoporosis without current pathological fracture Recurrent infections Chronic deep vein thrombosis (DVT) of right peroneal vein (HCC) High risk for fracture due to osteoporosis by DEXA scan Other ascites Iron deficiency anemia secondary to inadequate dietary iron intake Paroxysmal SVT (supraventricular tachycardia) (HCC) COPD, group D, by GOLD 2017 classification (HCC) Mild mitral regurgitation History of pulmonary embolism Type 2 diabetes mellitus without complication (HCC) Hyperparathyroidism (HCC) Current Outpatient Medications Medication Sig Dispense Refill Up4 Probiotics Womens Oral Capsule Take by mouth. Calcium Citrate 250 MG Oral Tablet Take 2 Tablets by mouth in the morning and 2 Tablets before bedtime. Buprenorphine HCl 8 MG Sublingual Tablet Sublingual [...] 1 Tablet before bedtime. 60 Tablet 0 ProAir HFA 108 (90 Base) MCG/ACT Inhalation Aerosol Solution Inhale 2 Puffs by mouth every 4 hours as needed for Wheezing. (Patient not taking: Reported on 03/18/2024) 18 g 11 Methenamine Mandelate 0.5 GM Oral Tablet (Mandelamine) Take 2 Tablets by mouth in the morning and 2Tablets in the evening. (Patient not taking: Reported on 03/18/2024) 120 Tablet 11 Current Facility-Administered Medications Medication Dose Route Frequency Provider Last Rate Last Admin vitamin b-12 (Cyanocobalamin) inj 1,000 mcg 1,000 mcg Intramuscular Q4 Weeks Rosalina Velazquez PA-C 1,000 mcg at 03/10/24 1215 Review of patient's allergies indicates: Allergen Reactions Prilosec [Omeprazole] Anaphylaxis Tongue itchy, ear throbbing Adhesive Tape Rash Iodinated Contrast Media Tachypnea Povidone-Iodine Other reaction(s): . Health Maintenance Due Topic Date Due *ADVANCE DIRECTIVE NOT ON FILE Never done Diabetic Foot Exam 11/15/2020 DISCUSS TOBACCO CESSATION (REFER TO SMARTSET #[id number]) 06/25/2023 COVID-19 Vaccine ( season) Never done Depression Screening 03/10/2024 ROS: CONSTITUTIONAL: No fevers, sweats, or chills EYE: No recent significant change in vision and No eye pain, redness, discharge PULMONARY: No recent change in breathing CARDIOVASCULAR: No chest pain, No shortness of breath, No dyspnea on exertion, No orthopnea, No paroxysmal nocturnal dyspnea, No edema, No palpitations, and No syncope GASTROINTESTINAL: No abdominal pain, No change in bowel habits, No significant heartburn, No significant change in appetite, No nausea, vomiting, diarrhea, or constipation, No hematemesis, No blood in stools or black tarry stools, No abdominal bloating or early satiety, and No dysphagia ALL OTHER SYSTEMS NEGATIVE I reviewed social, PMH, PSH, and family history and updated where needed. 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 (Adult - for ages 18 years and over): No Does your family have trouble paying for medicine? (Household - for ages 0-17 years): Not on file Food Insecurity: No Food Insecurity (11/01/2022) Food Insecurity Do you need food for this week? (Adult - for ages 18 years and over): No Are you able to get enough food for your family? (Household - for ages 0-17 years): Not on file Does your family need food this week? (Household - for ages 0-17 years): Not on file Do you always have enough food for your family? (Household - for ages 0-17 years): Not on file Transportation Needs: No Transportation Needs (11/01/2022) Transportation Needs Do you have trouble getting a ride to medical visits or work? (Adult - for ages 18 years and over):Never True Does your family have a hard time getting a ride to doctors’ visits? (Household - for ages 0-17 years): Not on file Has lack of transportation kept you from medical appointments, meetings, work, or from getting things needed for daily living? Check all that apply. (Adult - for ages 18 years and over): Not on file Do you (or your family) have trouble finding or paying for a ride (transportation)? (Household - for ages 0-17 years): Not on file Social Connections: Socially Integrated (11/01/2022) Social Connections How often do you feel lonely or isolated from those around you? (Adult - for ages 18 years and over): Never Housing Stability: Low Risk (11/01/2022) Housing Stability Do you currently live in a half-way or have no steady place to sleep at night? (Adult - for ages 18 years and over): No Do you think you are at risk of becoming homeless? (Adult - for ages 18 years and over): No Does your family worry about paying for your home or becoming homeless? (Household - for ages 0-17 years): Not on file Are you homeless or worried that you might be in the future? (Adult - for ages 18 years and over): Not on file Are you (or your family) homeless or worried that you might be in the future? (Household - for ages0-17 years): Not on file Past Medical History: Diagnosis Date Acute deep [...] performed by Alice Cotton MD at [facility] COLONOSCOPY, DIAGNOSTIC (RECTUM) 06/29/2018 poor prep, repeat / COLONOSCOPY FLEXIBLE PROXIMAL DIAGNOSTIC performed by Alice Cotton MD at [facility] COLONOSCOPY, DIAGNOSTIC (RECTUM) 06/30/2018 biopsies show hyperplastic polyps/COLONOSCOPY FLEXIBLE PROXIMAL DIAGNOSTIC performed by Deandra Caballero MD at [facility] COLONOSCOPY, DIAGNOSTIC (RECTUM) N/A 11/24/2022 hemorrhoids/recall 5 years/COLONOSCOPY FLEXIBLE PROXIMAL DIAGNOSTIC performed by Mark Baptiste DO at OR [facility] EGD, FLEXIBLE, DIAGNOSTIC 05/14/2017 erosive gastropathy, duodenitis/ESOPHAGOGASTRODUODENOSCOPY (EGD), FLEXIBLE, TRANSORAL, DIAGNOSTIC performed by Alice Cotton MD at [facility] EGD, FLEXIBLE, DIAGNOSTIC 08/21/2017 mild gastritis/ESOPHAGOGASTRODUODENOSCOPY (EGD), FLEXIBLE, TRANSORAL, DIAGNOSTIC performed by Alice Cotton MD at [facility] EGD, FLEXIBLE, DIAGNOSTIC N/A 04/28/2018 ESOPHAGOGASTRODUODENOSCOPY (EGD), FLEXIBLE, TRANSORAL, DIAGNOSTIC performed by Agata Costa OR [facility] EGD, FLEXIBLE, DIAGNOSTIC 06/29/2018 GJ inflammation & severe stenosis, repeat 2 wks/ESOPHAGOGASTRODUODENOSCOPY (EGD), FLEXIBLE, TRANSORAL, DIAGNOSTIC performed by Alice Cotton MD at [facility] EGD, FLEXIBLE, DIAGNOSTIC 07/14/2018 anastomotic stenosis, repeat 2 wks/ESOPHAGOGASTRODUODENOSCOPY (EGD), FLEXIBLE, TRANSORAL, DIAGNOSTIC performed by Alice Cotton MD at [facility] EGD, FLEXIBLE, DIAGNOSTIC 07/28/2018 normal/ESOPHAGOGASTRODUODENOSCOPY (EGD), FLEXIBLE, TRANSORAL, DIAGNOSTIC performed by Alice Cotton MD at [facility] EGD, FLEXIBLE, DIAGNOSTIC 10/21/2018 normal bx/ESOPHAGOGASTRODUODENOSCOPY (EGD), FLEXIBLE, TRANSORAL, DIAGNOSTIC performed by Deandra Caballero MD at [facility] EGD, FLEXIBLE, DIAGNOSTIC N/A 05/13/2019 ESOPHAGOGASTRODUODENOSCOPY (EGD), FLEXIBLE, TRANSORAL, DIAGNOSTIC performed by Filiberto Haile [facility] EGD, FLEXIBLE, DIAGNOSTIC 01/27/2020 gastritis / ESOPHAGOGASTRODUODENOSCOPY (EGD), FLEXIBLE, TRANSORAL, DIAGNOSTIC performed by Deandra Caballero MD at [facility] EGD, FLEXIBLE, DIAGNOSTIC 07/18/2021 normal / ESOPHAGOGASTRODUODENOSCOPY (EGD), FLEXIBLE, TRANSORAL, DIAGNOSTIC performed by Nikko Martino MD at [facility] EGD, FLEXIBLE, DIAGNOSTIC N/A 11/24/2022 normal/ESOPHAGOGASTRODUODENOSCOPY (EGD), FLEXIBLE, TRANSORAL, DIAGNOSTIC performed by Mark Baptiste DO at OR [facility] EGD, FLEXIBLE, TRANSENDOSCOPIC DILATION <30MM N/A 07/07/2018 ESOPHAGOGASTRODUODENOSCOPY (EGD), FLEXIBLE, TRANSORAL, BALLOON DILATION LESS THAN 30MM performed byJose E Callahan MD at [facility] EGD, FLEXIBLE,W/ENDOSCOPIC US 09/05/2016 fatty liver, gastric & duodenal ulcers, normal bx, repeat EGD 2 mo/[facility] EVAL NEUROSTIM PULSE GEN, W/ REPROGRAM N/A 04/18/2016 NEUROSTIMULATOR PULSE GENERATOR/ TRANSMITTER, WITH INTRAOPERATIVE OR SUBSEQUENT PROGRAMMING performed by Kirti Devine MD at OR [facility] EVAL NEUROSTIM PULSE GEN, W/ REPROGRAM N/A 06/20/2016 NEUROSTIMULATOR PULSE GENERATOR/ TRANSMITTER, WITH INTRAOPERATIVE OR SUBSEQUENT PROGRAMMING performed by Kirti Devine MD at OR [facility] IMPLANT EPIDURAL NEUROELECTRODES N/A 04/18/2016 PERCUTANEOUS IMPLANTATION NEUROSTIMULATOR EPIDURAL performed by Kirti Devine MD at OR [facility] IMPLANT EPIDURAL NEUROELECTRODES N/A 06/20/2016 PERCUTANEOUS IMPLANTATION NEUROSTIMULATOR EPIDURAL performed by Kirti Devine MD at OR [facility] IMPLANT SPINAL NEURORECEIVER N/A 06/20/2016 INSERTION OR REPLACEMENT SPINAL NEUROSTIMULATOR GENERATOR performed by Kirti Devine MD at [facility] IMPLANT SPINAL NEURORECEIVER Left 08/09/2020 INSERTION OR REPLACEMENT SPINAL NEUROSTIMULATOR GENERATOR performed by Victor Manuel Scott MD at [facility] INFORMATION breast surgery x2 INFORMATION back surgery x2 LAPAROSCOPE PROCEDURE, LIVER N/A 04/28/2018 UNLISTED LAPAROSCOPIC PROCEDURE LIVER performed by Jose E Callahan MD at [facility] LAPAROSCOPIC GASTRIC BYPASS/BAKARI-EN-Y N/A 04/28/2018 LAPAROSCOPIC GASTRIC RESTRICTIVE BYPASS BAKARI EN Y performed by Jose E Callahan MD at [facility] LUMBAR HEMILAMINECTOMY L4-5 in and L3-4 in OTHER PERIPHERAL NERVE NEUROPLASTY, ARM/LEG Right 03/31/2019 NEUROPLASTY MAJOR PERIPHERAL NERVE ARM OR LEG performed by Elmer Sanford MD at OR [facility] REMOVAL OF APPENDIX REMOVAL OF OVARY(S) 2007 [...] Diabetes Grandmother (Maternal) Breast Cancer Grandfather (Maternal) OBJECTIVE: PHYSICAL EXAM: BP 128/76 (BP Site: Left Arm, BP Position: Sitting, BP Cuff Size: Regular) | Pulse 80 | Temp 98.9 °F (37.2 °C) (Tympanic) | Resp 16 | Wt 148 lb 6.4 oz (67.3 kg) | BMI 26.29 kg/m² | BSA 1.73 m² General: alert, and no distress Head: Normocephalic, No masses, lesions, tenderness or abnormalities Eye Exam: conjunctiva are pink and non-injected, sclera clear Heart: regular rate & rhythm, no murmur, no gallops, PMI non-displaced, S-1 normal, and S-2 normal Lungs: normal respiratory rate and rhythm, lungs clear to auscultation Abdomen: abdomen soft Extremities: no edema, no clubbing, no cyanosis, +pain in groin with hip d duction Neuro Exam: alert with fluent speech walks under own power Psych: normal affect, no flight of ideas or tangential thought, good eye contact, no pressured speech I reviewed last A1c, gfr, lft, cbc, vit d, iron 03/10/24 GI: IMPRESSION/RECOMMENDATIONS: 58 year old female with SOTOMAYOR cirrhosis w a LIRADs-3 liver lesion, prioracites/peripheral edema now resolved, no hx of hep enceph or varices. Overall she is much improved,much more physically strong/active. She was previously excluded from liver transplant listing due to overall poor conditioning/frailty - that would no longer be a concern. However, now a low meld. Will monitor liver lesion - if HCC this would increase her meld and possible be considered for transplant eval. MRI is scheduled for tomorrow. Continue diuretics on an as needed basis No indication for lactulose or rifaximin at this time Continue low salt diet, avoidance of tylenol and alcohol. Due for EGD October 2024 Due for colonoscopy October 2027 03/11/24 mri: Cirrhotic liver. The 14 x 10 mm arterial enhancing lesion in segment 5 of the liver is unchanged, and may represent a vascular shunt rather than a solid hepatic nodule.. There is a 6 x 6 mm early arterial enhancing lesion in segment 8 of the liver near the liver dome. These are most consistent with LI-RADS 3 lesions. ASSESSMENT: (K75.81, K74.60) Liver cirrhosis secondary to nonalcoholic steatohepatitis (SOTOMAYOR) (HCC) (primary encounter diagnosis) (E03.9) Acquired hypothyroidism (I82.551) Chronic deep vein thrombosis (DVT) of right peroneal vein (HCC) (J44.9) COPD, group D, by GOLD 2017 classification (HCC) (M81.0) High risk for fracture due to osteoporosis by DEXA scan (D50.8) Iron deficiency anemia secondary to inadequate dietary iron intake (F17.200) Severe tobacco use disorder (E11.9) Type 2 diabetes mellitus without complication, without long-term current use of insulin (HCC) (Z23) Need for prophylactic vaccination and inoculation against influenza (R16.0) Liver mass (R30.0) Dysuria (E50.9) Vitamin A deficiency (Z98.84) S/P gastric bypass (R10.32) Left groin pain PLAN: Liver cirrhosis secondary to nonalcoholic steatohepatitis (SOTOMAYOR) (HCC) (Primary) Markedly improved overall Cont f/u hepatology Await their input on mri Cont lasix, lactulose Acquired hypothyroidism Cont levothyroxine Last tsh at goal Chronic deep vein thrombosis (DVT) of right peroneal vein (HCC) On anti-coag COPD, group D, by GOLD 2017 classification (HCC) Cont chantix for tobacco, aware importance to quit Follow High risk for fracture due to osteoporosis by DEXA scan Sees hiroc Iron deficiency anemia secondary to inadequate dietary iron intake Await labs in 1 month Severe tobacco use disorder As above Type 2 diabetes mellitus without complication, without long-term current use of insulin (HCC) In past A1c at goal Follow Need for prophylactic vaccination and inoculation against influenza - INFLUENZA VAC, TRIVALENT, (IIV3), PF, 0.5 ML (FLUZONE) Liver mass Sees hepatology Dysuria - URINALYSIS, REFLEX TO CULTURE (NOT FOR NEUTROPENIC PATIENTS); Future; Expected date: 03/18/2024 Vitamin A deficiency Cont supplement S/P gastric bypass - 25-HYDROXY VITAMIN D; Future; Expected date: 04/18/2024 - IRON SCREEN, INCLUDING TIBC; Future; Expected date: 04/18/2024 - FERRITIN; Future; Expected date: 04/18/2024 Left groin pain - XR HIP UNILAT 2-3 VIEWS INCLUDING AP PELVIS Follow Up: Return in about 6 months (around 09/16/2024), or if symptoms worsen or fail to improve. * Дмитрий Puente RN - 03/18/2024 12:33 PM EST PRE - ADMINISTRATION DOCUMENTATION Are you experiencing any cold symptoms or fever? No Have you had Guillain-[place] Syndrome (an illness that causes paralysis) within the last 6 weeks? No Have you had the flu shot in the past? YES Have you ever had a reaction to the flu shot? No Дмитрий Puente RN, 03/18/2024 12:33 PM documented in this encounter Nursing Notes * Дмитрий Puente RN - 03/18/2024 12:34 PM EST Chief Complaint Patient presents with Re-Check Routine check up Leg Pain Left thigh - started about 1 week ago - states she did not injure it Referral Discuss referral for liver Urinary Tract Infection Symptoms Dysuria - started a couple days ago Medication Administration Flu and/or Pneumo Inj Pre-Administration Time Out Procedure Performed: Yes Patient Identified (Ask Name/Date of ): Yes Does the patient have a fever greater than 101 degrees today? No Patient allergic to latex? No Has the patient ever fainted after receiving an injection? No VFC Stock: No Immunization(s) verified: Yes, Immunization Name: Flu, VIS Sheet(s) given: Yes Verified Side and Site: Yes Verified Shot(s) with Parent(s)/Patient: Yes documented in this encounter Plan of Treatment Upcoming Encounters Date Type Department Care Team (Late st Contact Info) Description 04/07/2024 3:40 PM EST Office Visit Hepatology, [facility] [address] [place] [address] Kathryn Crespo DO [address] [place] [address] 06/22/2024 2:00 PM EDT Office Visit Rheumatology, [facility] [address] [place] [address] Omega Galvin PA-C [address] [address] 07/26/2024 2:30 PM EDT Office Visit Gastroenterology, [facility] [address] [place] [address] Kishore Regalado CRNP [address] [facility] [place] [address] 09/06/2024 3:40 PM EDT Office Visit Pulmonary Medicine, [facility] 132 [facility] [place] [address] Iker Toney MD [address] [place] [address] 09/27/2024 2:00 PM EDT Office Visit General Internal Medicine [facility] 200 [facility] [place] [address] Ishaan Pepe MD [facility] [address] 12/15/2024 4:15 PM EDT Imaging Radiology [facility] 1st [facility] 132 [facility] [place] [address] Pending Results Name Type Priority Associated Diagnoses Date /Time XR HIP UNILAT 2-3 VIEWS INCLUDING AP PELVIS Medical Imaging Routine Left groin pain 03/18/2024 1:25 PM EST Scheduled Orders Name Type Priority Associated Diagnoses Orde r Schedule URINALYSIS, REFLEX TO CULTURE (NOT FOR NEUTROPENIC PATIENTS) Lab Routine Dysuria Expected: 03/18/2024, Expires: 03/18/2025 25-HYDROXY VITAMIN D Lab Routine S/P gastric bypass Expected: 04/18/2024 (Approximate), Expires: 03/18/2025 IRON SCREEN, INCLUDING TIBC Lab Routine S/P gastric bypass Expected: 04/18/2024 (Approximate), Expires: 03/18/2025 FERRITIN Lab Routine S/P gastric bypass Expected: 04/18/2024 (Approximate), Expires: 03/18/2025 Scheduled Procedures Name Priority Associated Diagnoses Date/Ti me COLONOSCOPY FLEXIBLE PROXIMA L DIAGNOSTIC Recall History of colonic polyps Health Maintenance Due Date Last Done Comments Cologuard 12/24/2012 Sigmoidoscopy 12/24/2012 *ADVANCE DIRECTIVE NOT ON FILE 03/12/2019 Diabetic Foot Exam 11/15/2020 11/16/2019, 0 09/21/2018, 08/06/2017, Additional history exists DISCUSS TOBACCO CESSATION (REFER TO SMARTSET #0151) 06/25/2023 06/24/2022, 05/27/2022, 05/19/2022, Additional history exists [...] 09/01/2023, Additional history exists Colonoscopy 11/25/2027 11/24/2022, 082 10/2022, 06/30/2018, Additional history exists Colorectal Cancer Screening 11/25/2027 Lipid Panel 08/31/2028 09/01/2023, 06/0 06/2023, 05/26/2022, Additional history exists DTap/Tdap Vaccines (9 - Td or Tdap) 02/28/2032 02/27/2022, 05/01/2010, 01/16/1997, Additional history exists Hepatitis B Vaccine Completed 02/06/2014, 09/06/2013, 08/09/2013 Zoster Vaccines Completed 03/08/2021, 11/08/2020 Alpha-1 Antitrypsin Completed 12/04/2021 Pneumococcal Vaccine: Pediatrics (0 to 5 Years) and At-Risk Patients (6 to 64 Years) Completed 12/06/2021, 02/15/2009 RETIRED - COLONOSCOPY-EVERY 5 YRS AGES 18-100 Discontinued 11/24/2022, 11/24/2022, 06/30/2018, Additional history exists VITAMIN D LEVEL ONCE IN A LIFETIME-USE SMARTSET# 96893 Completed 06/22/2023, 02/11/2023, 08/20/2022, Additional history exists [...] this encounter Medical Devices Implanted Type Area Bartenders Device Identifier Shelf Expiration Date Model / Serial / Lot Octrode, Lead Kit, 60 Cm Implanted:Qty: 1 on 06/20/2016 by Kirti Devine MD at OR [facility] N/A: Spine Lumbar [employer] 11/21/2017 [id number] / [id number] / Octrode, Lead Kit,60 Cm Implanted:Qty: 1 on 06/20/2016 by Kirti Devine MD at OR [facility] N/A: Spine Lumbar [employer] 05/02/2018 [id number] / [id number] / [place] 1192 - [id number] Implanted:Qty: 2 on 06/20/2016 by Kirti Devine MD at OR [facility] Left: Buttocks [employer] 06/27/2017 [id number] / / [id number] Battery Proclaim Elite 5 - [id number] - [id number] Implanted:Qty: 1 on 06/20/2016 by Kirti Devine MD at OR [facility] Left: Buttocks [employer] 05/27/2018 [id number] / [id number] / documented as of this encounter Visit [...] secondary to nonalcoholic steatohepatitis (SOTOMAYOR) (HCC)- Primary Acquired hypothyroidism Unspecified hypothyroidism Chronic deep vein thrombosis (DVT) of right peroneal vein (HCC) COPD, group D, by GOLD 2017 classification (HCC) High risk for fracture due to osteoporosis by DEXA scan Osteoporosis, unspecified Iron deficiency anemia secondary to inadequate dietary iron intake Severe tobacco use disorder Type 2 diabetes mellitus without complication, without long-term current use of insulin (HCC) Need for prophylactic vaccination and inoculation against influenza Liver mass Unspecified disorder of liver Dysuria Vitamin A deficiency Unspecified vitamin A deficiency S/P gastric bypass Bariatric surgery status Left groin pain Abdominal pain, left lower quadrant Screening mammogram for breast cancer documented in [...] patient or by statute hierarchy) Care Teams Aerospace Assembler Relationship Specialty Start Date End Date Ishaan Pepe MD 200 [place] [address] PCP - General Internal Medicine 07/18/21 documented as of this encounter
--- OUTSIDE RECORDS SUMMARY | 2024-06-30 07:08 | External Medical Summary | Summary of Care ---
Author Name Unknown Organization [facility] Address [address] [facility] [address] Phone [phone] Care Team Providers Care Direct Mail Clerk Name Role Phone Ishaan Pepe MD Primary Care Provider + Reason for Referral * Precert (Within 10 days (routine)) - Authorized Specialty Diagnoses / Procedures Referred By Contac t Referred To Contact Radiology Diagnoses Liver cirrhosis secondary to nonalcoholic steatohepatitis (SOTOMAYOR) (HCC) Procedures MRI LIVER W WO CONTRAST Marielena Khan DO [address] [place] [address] Phone: tel: fax: Referral ID Status Reason Start Date Expiration Date V isits Requested Visits Authorized [id number] Authorized 04/04/2024 999 999 Reason for Visit * Reason Comments Follow Up Cirrhosis Encounter Details Date Type Department Care Team (Latest Contact Info) Description 04/04/2024 10:40 AM EST Office Visit Hepatology, [facility] [address] [address] Marielena Khan DO [address] [place] [address] Liver cirrhosis secondary to nonalcoholic steatohepatitis (SOTOMAYOR) (HCC)* Allergies Active Allergy Reactions Criticality Noted Date Comments Adhesive Tape Rash 01/05/2009 Iodinated Contrast Media Tachypnea 07/02/2022 Povidone-Iodine 10/05/2018 Other reaction(s): . Omeprazole Anaphylaxis High 01/03/2010 Tongue itchy, ear throbbing documented as of this encounter (statuses as of 04/04/2024) Medications ProAir HFA 108 (90 Base) MCG/ACT [...] 03/08/20 24 Active Vitamin A 3 MG (82712 UT) Oral Capsule (Aquasol-A) Take 1 Capsule by mouth in the morning. 03/18/20 24 Active Hospital, Clinic, or Other Facility Administered Medication Ordered Dose Route Frequency Start Date End Date Status vitamin b-12 (Cyanocobalamin) inj 1,000 mcgIndications:Intestinal postoperative nonabsorption 1000 mcg IM [id number] 06/22/2023 05/23/19 25 Active documented as of [...] dependence, uncomplicated 04/27/2020 Overview (07/30/2022): Managed by [facility] for opoid addiction - takes Subutex [...] (Oral) 973,05/25/1968,04/20/1968,02/25 Pneumococcal Conjugate Vacci ne, 20-valent ([id number]) 12/06/2021 Pneumococcal Polysaccharide PPV23 (Pneumovax) 02/15/2009 Rubella [...] Date Author No 06/12/2022 7:56 PM Sushil Niadu RN documented in this encounter Progress Notes * Greta Barrera RN - 04/04/2024 10:37 AM EST Medical Marijuana Documentation Certifying provider: Unknown Authorized Dispensary: [facility] Certified Condition(s): pain Dosage product provided? Oil, [...] performed by Alice Cotton MD at ENDOSCOPY [facility] COLONOSCOPY, DIAGNOSTIC (RECTUM) 06/29/2018 poor prep, repeat / COLONOSCOPY FLEXIBLE PROXIMAL DIAGNOSTIC performed by Alice Cotton MD at [facility] COLONOSCOPY, DIAGNOSTIC (RECTUM) 06/30/2018 biopsies show hyperplastic polyps/COLONOSCOPY FLEXIBLE PROXIMAL DIAGNOSTIC performed by Deandra Caballero MD at [facility] COLONOSCOPY, DIAGNOSTIC (RECTUM) N/A 11/24/2022 hemorrhoids/recall 5 years/COLONOSCOPY FLEXIBLE PROXIMAL DIAGNOSTIC performed by Mark Baptiste DO at OR [facility] EGD, FLEXIBLE, DIAGNOSTIC 05/14/2017 erosive gastropathy, duodenitis/ESOPHAGOGASTRODUODENOSCOPY (EGD), FLEXIBLE, TRANSORAL, DIAGNOSTIC performed by Alice Cotton MD at ENDOSCOPY [facility] EGD, FLEXIBLE, DIAGNOSTIC 08/21/2017 mild gastritis/ESOPHAGOGASTRODUODENOSCOPY (EGD), FLEXIBLE, TRANSORAL, DIAGNOSTIC performed by Alice Cotton MD at [facility] EGD, FLEXIBLE, DIAGNOSTIC N/A 04/28/2018 ESOPHAGOGASTRODUODENOSCOPY (EGD), FLEXIBLE, TRANSORAL, DIAGNOSTIC performed by Jose E Callahan [facility] EGD, FLEXIBLE, DIAGNOSTIC 06/29/2018 GJ inflammation & severe stenosis, repeat 2 wks/ESOPHAGOGASTRODUODENOSCOPY (EGD), FLEXIBLE, TRANSORAL, DIAGNOSTIC performed by Alice Cotton MD at [facility] EGD, FLEXIBLE, DIAGNOSTIC 07/14/2018 anastomotic stenosis, repeat 2 wks/ESOPHAGOGASTRODUODENOSCOPY (EGD), FLEXIBLE, TRANSORAL, DIAGNOSTIC performed by Alice Cotton MD at [facility] EGD, FLEXIBLE, DIAGNOSTIC 07/28/2018 normal/ESOPHAGOGASTRODUODENOSCOPY (EGD), FLEXIBLE, TRANSORAL, DIAGNOSTIC performed by Alice Cotton MD at [facility] EGD, FLEXIBLE, DIAGNOSTIC 10/21/2018 normal bx/ESOPHAGOGASTRODUODENOSCOPY (EGD), FLEXIBLE, TRANSORAL, DIAGNOSTIC performed by Deandra Caballero MD at [facility] EGD, FLEXIBLE, DIAGNOSTIC N/A 05/13/2019 ESOPHAGOGASTRODUODENOSCOPY (EGD), FLEXIBLE, TRANSORAL, DIAGNOSTIC performed by Filiberto Haile MDa ENDOSCOPY [facility] EGD, FLEXIBLE, DIAGNOSTIC 01/27/2020 gastritis / ESOPHAGOGASTRODUODENOSCOPY (EGD), FLEXIBLE, TRANSORAL, DIAGNOSTIC performed by Deandra Caballero MD at ENDOSCOPY [facility] EGD, FLEXIBLE, DIAGNOSTIC 07/18/2021 normal / ESOPHAGOGASTRODUODENOSCOPY (EGD), FLEXIBLE, TRANSORAL, DIAGNOSTIC performed by Nikko Martino MD at ENDOSCOPY [facility] EGD, FLEXIBLE, DIAGNOSTIC N/A 11/24/2022 normal/ESOPHAGOGASTRODUODENOSCOPY (EGD), FLEXIBLE, TRANSORAL, DIAGNOSTIC performed by Mark Baptiste DO at OR [facility] EGD, FLEXIBLE, TRANSENDOSCOPIC DILATION <30MM N/A 07/07/2018 ESOPHAGOGASTRODUODENOSCOPY (EGD), FLEXIBLE, TRANSORAL, BALLOON DILATION LESS THAN 30MM performed byJose E Callahan MD at [facility] EGD, FLEXIBLE,W/ENDOSCOPIC US 09/05/2016 fatty liver, gastric & duodenal ulcers, normal bx, repeat EGD 2 mo/[facility] EVAL NEUROSTIM PULSE GEN, W/ REPROGRAM N/A 04/18/2016 NEUROSTIMULATOR PULSE GENERATOR/ TRANSMITTER, WITH INTRAOPERATIVE OR SUBSEQUENT PROGRAMMING performed by Kirti Devine MD at OR [facility] EVAL NEUROSTIM PULSE GEN, W/ REPROGRAM N/A 06/20/2016 NEUROSTIMULATOR PULSE GENERATOR/ TRANSMITTER, WITH INTRAOPERATIVE OR SUBSEQUENT PROGRAMMING performed by Kirti Devine MD at OR [facility] IMPLANT EPIDURAL NEUROELECTRODES N/A 04/18/2016 PERCUTANEOUS IMPLANTATION NEUROSTIMULATOR EPIDURAL performed by Kirti Devine MD at OR [facility] IMPLANT EPIDURAL NEUROELECTRODES N/A 06/20/2016 PERCUTANEOUS IMPLANTATION NEUROSTIMULATOR EPIDURAL performed by Kirti Devine MD at OR [facility] IMPLANT SPINAL NEURORECEIVER N/A 06/20/2016 INSERTION OR REPLACEMENT SPINAL NEUROSTIMULATOR GENERATOR performed by Kirti Devine MD at OR [facility] IMPLANT SPINAL NEURORECEIVER Left 08/09/2020 INSERTION OR REPLACEMENT SPINAL NEUROSTIMULATOR GENERATOR performed by Victor Manuel Scott MD at OR [facility] INFORMATION breast surgery x2 INFORMATION back surgery x2 LAPAROSCOPE PROCEDURE, LIVER N/A 04/28/2018 UNLISTED LAPAROSCOPIC PROCEDURE LIVER performed by Jose E Callahan MD at [facility] LAPAROSCOPIC GASTRIC BYPASS/BAKARI-EN-Y N/A 04/28/2018 LAPAROSCOPIC GASTRIC RESTRICTIVE BYPASS BAKARI EN Y performed by Jose E Callahan MD at OR [facility] LUMBAR HEMILAMINECTOMY L4-5 in and L3-4 in OTHER PERIPHERAL NERVE NEUROPLASTY, ARM/LEG Right 03/31/2019 NEUROPLASTY MAJOR PERIPHERAL NERVE ARM OR LEG performed by Elmer Sanford MD at [facility] REMOVAL OF APPENDIX REMOVAL OF OVARY(S) 2007 [...] 60 Tablet 0 Vitamin A 3 MG (56660 UT) Oral Capsule (Aquasol-A) Take 1 Capsule [...] mcg 1,000 mcg Intramuscular Q4 Weeks Rosalina eVlazquez PA-C 1,000 mcg at 03/10/24 1215 Review [...] 06/22/2024 2:00 PM EDT Office Visit Rheumatology, [address] [address] Omega Galvin PA-C [address] [facility] [place], [place] [address] 07/26/2024 2:30 PM EDT Office Visit Gastroenterology, [facility] 132 [facility] [place] [address] Kishore Regalado CRNP [address] [place] [address] 09/06/2024 3:40 PM EDT Office Visit Pulmonary Medicine, [facility] [address] [facility] [place] [address] Iker Toney MD [address] [place] [address] 09/27/2024 2:00 PM EDT Office Visit General Internal Medicine [facility] 200 [place] [address] Ishaan Pepe MD [address] [place] [address] 12/15/2024 4:15 PM EDT Imaging Radiology [facility] 1st [facility] [address] [facility] [place] [address] Scheduled Orders Name Type Priority Associated Diagnoses [...] exists DISCUSS TOBACCO CESSATION (REFER TO SMARTSET #6264) 06/25/2023 06/24/2022, 05/27/2022, 05/19/2022, Additional history exists [...] D LEVEL ONCE IN A LIFETIME-USE SMARTSET# [id number] Completed 06/22/2023, 02/11/2023, 08/20/2022, Additional history exists [...] this encounter Medical Devices Implanted Type Area Yard Person Device Identifier Shelf Expiration Date Model / Serial / Lot Octrode, Lead Kit, 60 Cm Implanted:Qty: 1 on 06/20/2016 by Kirti Devine MD at OR [facility] N/A: Spine Lumbar [employer] 11/21/2017 [id number] / [id number] / Octrode, Lead Kit,60 Cm Implanted:Qty: 1 on 06/20/2016 by Kirti Devine MD at OR [facility] N/A: Spine Lumbar [employer] 05/02/2018 [id number] / [id number] / [place] 1192 - [id number] Implanted:Qty: 2 on 06/20/2016 by Kirti Devine MD at OR [facility] Left: Buttocks [employer] 06/27/2017 [id number] / / [id number] Battery [employer] Elite 5 - [id number] - [id number] Implanted:Qty: 1 on 06/20/2016 by Kirti Devine MD at OR [facility] Left: Buttocks [employer] 05/27/2018 [id number] / [id number] / documented as of this encounter Visit [...] secondary to nonalcoholic steatohepatitis (SOTOMAYOR) (HCC)- Primary Screening mammogram for breast cancer documented [...] patient or by statute hierarchy) Care Teams Direct Mail Clerk Relationship Specialty Start Date End Date Ishaan Pepe MD [address] [place] [address], [place] [address] PCP - General Internal Medicine 07/18/21 documented as of this encounter
--- OUTSIDE RECORDS SUMMARY | 2024-06-30 07:08 | External Medical Summary | Summary of Care ---
Author Name Unknown Organization [facility] Address [address] [place] [address] Phone [phone] Care Team Providers Care Case Management Specialist Name Role Phone Ishaan Pepe MD Primary Care Provider + Encounter Details Date Type Department Care Team (Latest Contact Info) Description 03/11/2024 7:20 PM EST - 03/11/2024 11:59 PM EST Hospital Encounter Radiology Film File [address] [place] [address] Discharge Disposition: Home - Self Care Allergies Active Allergy Reactions Criticality Noted Date Comments Adhesive Tape Rash 01/05/2009 Iodinated Contrast Media Tachypnea 07/02/2022 Povidone-Iodine 10/05/2018 Other reaction(s): . Omeprazole Anaphylaxis High 01/03/2010 Tongue itchy, ear throbbing documented as of this encounter (statuses as of 03/16/2024) Medications ProAir HFA 108 (90 Base) MCG/ACT Inhalation Aerosol SolutionIndication s:Chest congestion,Acute cough Inhale 2 Puffs by mouth every 4 hours as needed for Wheezing. 18 g 11 02/13/20 22 Active Additional Information Patient not taking.Reported on 03/10/2024 Up4 Probiotics Womens Oral Capsule Take by mouth. Activ e Calcium Citrate 250 MG Oral Tablet Take 2 Tablets by mouth in the morning and 2 Tablets before bedtime. Active Buprenorphine HCl 8 MG Sublingual Tablet Sublingual (Subutex) Place 1 Tablet under the tongue 4 times a day. 90 Tablet 06/03/19 23 Active Vitamin D3 50 MCG (1999) Oral CapsuleIndications :Vitamin D deficiency Take 1 Capsule by mouth in the morning. 90 Capsule 3 4 9:12 AM EDT 10/22/19 23 Active Additional Information Patient not taking.Reported on 03/10/2024 Synthroid 112 MCG Oral TabletIndications: Acquired hypothyroidism Take 1 Tablet by mouth in the morning. (at least 30 min prior to breakfast or other meds). 90 Tablet 3 4 8:19 AM EDT 03/24/20 23 Active Methocarbamol 750 MG Oral Tablet (Robamol) TAKE ONE TABLET BY MOUTH IN THE MORNING AND ONE TABLET AT NOON AND ONE TABLET BEFORE BEDTIME FOR MUSCLE SPASM 180 Tablet 3 4 3:15 PM EST 05/15/19 24 025 Active Additional Information Patient taking differently: TID PRN, Reported on 03/10/2024 Methenamine Mandelate 0.5 GM Oral Tablet (Mandelamine) Take 2 Tablets by mouth in the morning and 2 Tablets in the evening. 120 Tablet 11 07/22/19 24 Active Additional Information Patient not taking.Reported on 03/10/2024 Estradiol 0.1 MG/GM Vaginal Cream (Estrace) Administer [...] taking differently:30 g OralTID PRN, Reported on 03/10/2024 Furosemide 40 MG Oral Tablet (Lasix)Indications :Liver cirrhosis secondary to nonalcoholic steatohepatitis (SOTOMAYOR) (HCC),Leg edema, right Take 1 pill in the morning daily for edema 11/10/19 24 Active Ondansetron HCl 8 MG Oral Tablet (Zofran)Indication s:Nausea TAKE ONE TABLET BY MOUTH EVERY 8 HOURS NEEDED FOR NAUSEA. 180 Tablet 2 4 9:50 AM EDT 12/28/19 24 Active Mirtazapine 30 MG Oral Tablet (Remeron) TAKE ONE TABLET BY MOUTH AT BEDTIME 90 Tablet 2 4 9:50 AM EDT 12/28/19 24 025 Active Varenicline Tartrate 1 MG Oral Tablet (Chantix)Indicatio ns:Tobacco use Take 1 Tablet by mouth in the morning and 1 Tablet before bedtime. 60 Tablet 03/08/20 24 Active LORazepam 1 MG Oral Tablet (Ativan)Indication s:Anxiety Take one hour prior to MRI 1 Tablet 03/09/20 24 Active Hospital, Clinic, or Other Facility Administered Medication Ordered Dose Route Frequency Start Date End Date Status vitamin b-12 (Cyanocobalamin) inj 1,000 mcgIndications:Intestinal postoperative nonabsorption 1000 mcg IM [id number] 06/22/2023 05/23/19 25 Active documented as of this encounter (statuses as of 03/16/2024) Active Problems Problem Noted Date Diagnosed Date [...] dependence, uncomplicated 04/27/2020 Overview (07/30/2022): [facility] [place] by [facility] for opoid addiction - takes Subutex (Buprenorphine) [...] as of this encounter (statuses as of 03/16/2024) Resolved Problems Problem Noted Date Diagnosed Date [...] adult exam 08/08/2020 12/06/2021 Overview (10/22/2021): 10/18 [facility] stress echo normal EF, no CAD, [...] as of this encounter (statuses as of 03/16/2024) Immunizations Name Administration Dates Next Due DT - Diptheria/Tetanus (PEDS) 11/14/1985 ,06/30/1972,05/25/1968,04/20,02/26/1968 Hepatitis B, 20+ yrs 02/06/2014,09/06/2013,08/09 MMR-LUKE - Measles/Mumps/Rubella/Varicella Vaccine 10/13/1972 OPV - Polio Virus Vaccine (Oral) 973,05/25/1968,04/20/1968,02/25 Pneumococcal Conjugate Vacci ne, 20-valent ([id number]) 12/06/2021 Pneumococcal Polysaccharide PPV23 (Pneumovax) 02/15/2009 Rubella Vaccine 08/03/1968 Seasonal Influenza Virus Vac cine, Unspecified Formulation 04/10/2021,12/30/2019,04/18/2019 Seasonal Influenza, PF, 6 M & above, IM , (FluLaval or Fluzone) 02/11/2023,01/03/2022,04/10/2021,12/29,04/18/2019 TDAP (age 10 and older)(Boostrix) 02/27/2022 TDAP, Age 7 and older, IM (Adacel) 05/01/2010 Zoster Vaccine Recombinant (Shingrix) 03/08/2021 ,11/08/2020 documented as of this encounter Social History Tobacco Use Types Packs/Day Years Used Date Smoking Tobacco: Every Day Cigarettes 1 35 Smokeless Tobacco: Never Alcohol Use Standard Drinks/Week Comments No 0 [...] of Assessment Author Yes 07/04/2022 12:31 PM Lucy Bourne RN * Do you have difficulty dressing [...] Sushil Naidu RN documented in this encounter Plan of Treatment Upcoming Encounters Date Type Department Care Team (Late st Contact Info) Description 03/18/2024 12:40 PM EST Office Visit General Internal Medicine [facility] [address] [place] [address] Ishaan Pepe MD 200 [facility] [place] [address] 03/21/2024 4:00 PM EST Laboratory Laboratory [facility] [address] [place] [phone] [place] [address] [address] [facility] [place] [address] 04/07/2024 3:40 PM EST Office Visit Hepatology, [facility] [place] [address] [address] Kathryn Crespo DO [address] [place] [address] 06/22/2024 2:00 PM EDT Office Visit Rheumatology, [facility] [address] [facility], [place] [address] Omega Galvin PA-C [address] [facility], [place] [address] 07/26/2024 2:30 PM EDT Office Visit Gastroenterology, [facility] 132 [facility] [place] [address] Kishore Regalado CRNP 132 [facility] [place] [address] 09/06/2024 3:40 PM EDT Office Visit Pulmonary Medicine, [facility] 132 [facility] [place] [address] Iker Toney MD [address] [place] [address] 12/15/2024 4:15 PM EDT Imaging Radiology [facility] [address] [facility] [address] [facility] [place] [address] Scheduled Procedures Name Priority Associated Diagnoses Date/Ti me COLONOSCOPY FLEXIBLE PROXIMA L DIAGNOSTIC Recall History of colonic polyps Health Maintenance Due Date Last Done Comments Cologuard 12/24/2012 Sigmoidoscopy 12/24/2012 *ADVANCE DIRECTIVE NOT ON FILE 03/12/2019 Diabetic Foot Exam 11/15/2020 11/16/2019, 0 09/21/2018, 08/06/2017, Additional history exists DISCUSS TOBACCO CESSATION (REFER TO SMARTSET #4758) 06/25/2023 06/24/2022, 05/27/2022, 05/19/2022, Additional history exists Fecal Occult Blood Test 11/20/2023 11/20/19, 11/19/2022, 11/19/2022 COVID-19 Vaccine ( season) 2023 Influenza Vaccine (FLU shot) (#1) 2023 02/11/2023, 01/03/2022, 04/10/2021, Additional history exists Depression Screening 03/10/2024 03/10/2023 DXA Scan 06/03/2024 [...] D LEVEL ONCE IN A LIFETIME-USE SMARTSET# 08788 Completed 06/22/2023, 02/11/2023, 08/20/2022, Additional history exists Lung Cancer Screening Completed 09/11/2023 , 06/15/2022, 04/15/2022, Additional history exists HPV (Gardasil) Vaccine Aged Out No lo nger eligible based on patient's age to complete this topic MENINGOCOCCAL (MENACTRA/MENVEO) Aged Out No longer eligible based on patient's age to complete this topic documented as of this encounter Medical Devices Implanted Type Area Head Of Precision Targeting Device Identifier Shelf Expiration Date Model / Serial / Lot Octrode, Lead Kit, 60 Cm Implanted:Qty: 1 on 06/20/2016 by Kirti Devine MD at OR [facility] N/A: Spine Lumbar [employer] 11/21/2017 [id number] / [id number] / Octrode, Lead Kit,60 Cm Implanted:Qty: 1 on 06/20/2016 by Kirti Devine MD at OR [facility] N/A: Spine Lumbar [employer] 05/02/2018 [id number] / [id number] / [place] 1192 - [id number] Implanted:Qty: 2 on 06/20/2016 by Kirti Devine MD at OR [facility] Left: Buttocks [employer] 06/27/2017 [id number] / / [id number] Battery Proclaim Elite 5 - [id number] - [id number] Implanted:Qty: 1 on 06/20/2016 by Kirti Devine MD at OR [facility] Left: Buttocks [employer] 05/27/2018 [id number] / [id number] / documented as of this encounter Procedures Procedure Name Priority Date/Time Associated Diagnosis Comments RADIOLOGY EXAM - MRI (IMAGES ONLY, NO REPORT) Routine 03/11/2024 7:20 PM EST documented in this encounter Results * RADIOLOGY EXAM - MRI (IMAGES ONLY, NO REPORT) (03/11/2024 7:20 PM EST) 03/11/2024 7:17 PM EST Narrative Scheduling, Silent - 03/15/2024 1:57 PM EST This is an imaging study not interpreted or resulted by a [facility] or [facility] contracted radiologist. us Kishore FLORES RAD MRI-MRA Final Resu lt documented in this encounter Advance Directives * [...] patient or by statute hierarchy) Care Teams Case Management Specialist Relationship Specialty Start Date End Date Ishaan Pepe MD [address] [place] [address] PCP - General Internal Medicine 07/18/21 documented as of this encounter
--- OUTSIDE RECORDS SUMMARY | 2024-06-30 07:09 | External Medical Summary ---
Author Name Unknown Address Unknown Organization [id number]:LABORATORY [facility] [address] [place] [address] Laboratory Report Ordering Provider Test Date Status SHON MANCIA 03/10/2024 12:52:05 Final Warfarin Therapy
INR: 2 .0-3.0 conventional anticoagulation
INR: 2.5- 3.5 high intensity anticoagulation Observation Date Value Abnormality Reference (Units ) Status PT 03/10/2024 12:52:05 13.6 11.6-15.2 (seconds) Final INR 03/10/2024 12:52:05 1.0 0.8-1.2 [address] [facility] [address] [facility] [address] [place] [address]
--- OUTSIDE RECORDS SUMMARY | 2024-06-30 07:09 | External Medical Summary ---
Author Name Unknown Address Unknown Organization [id number]:LABORATORY [facility] [address] [facility] [address] Laboratory Report Ordering Provider Test Date Status SHON MANCIA 03/10/2024 12:52:05 Final Observation Date Value Abnormality Reference (Units ) Status SYNC LEUKOCYTES IN BLOOD BY AUTOMATED COUNT 03/10/2024 12:52:05 5.83 4.00-10.80 (K/uL) Final Segs 03/10/2024 12:52:05 71.0 40.0-75.0 (%) Final Lymphs % 03/10/2024 12:52:05 22.3 18.0-42.0 (%) Final Monos 03/10/2024 12:52:05 5.8 1.0-11.0 (%) Final Eosinophils 03/10/2024 12:52:05 0.7 0.0-6.0 (%) Final Basos 03/10/2024 12:52:05 0.2 0.0-2.0 (%) Final Absolute Segs 03/10/2024 12:52:05 4.14 1.80-7.70 (K/uL) Final Lymphs, absolute 03/10/2024 12:52:05 1.30 1.00-4.80 (K/ul) Final Monos, Abs 03/10/2024 12:52:05 0.34 0.00-1.10 (K/uL) Final Eos, Abs 03/10/2024 12:52:05 0.04 0.00-0.70 (K/uL) Final Basos, Abs 03/10/2024 12:52:05 0.01 0.00-0.20 (K/uL) Final Performing Location LABORATORY [facility] [address] [place] [address]
--- OUTSIDE RECORDS SUMMARY | 2024-06-30 07:09 | External Medical Summary | Summary of Care ---
Author Name Unknown Organization [facility] Address [address] [facility] [place] [address] Phone [phone] Care Team Providers Care Service Dismantler Name Role Phone Ishaan Pepe MD Primary Care Provider + Reason for Visit * Reason Comments Outpatient Testing Encounter Details Date Type Department Care Team (Latest Contact Info) Description 03/10/2024 12:50 PM EST Laboratory Laboratory, [facility] [address] [place] [facility] [place] [address] [facility] [address] [place] [address] Diabetes mellitus (HCC); Vitamin A deficiency; [employer] Other*[id number]; Liver cirrhosis secondary to nonalcoholic steatohepatitis (SOTOMAYOR) (HCC) Allergies Active Allergy Reactions Criticality Noted Date Comments Adhesive Tape Rash 01/05/2009 Iodinated Contrast Media Tachypnea 07/02/2022 Povidone-Iodine 10/05/2018 Other reaction(s): . Omeprazole Anaphylaxis High 01/03/2010 Tongue itchy, ear throbbing documented as of this encounter (statuses as of 03/10/2024) Medications ProAir HFA 108 (90 Base) MCG/ACT [...] times a day. 90 Tablet 06/03/19 Active Vitamin D3 50 MCG (2000 UT) [...] 1,000 mcgIndications:Intestinal postoperative nonabsorption 1000 mcg IM [id number] 06/22/2023 05/23/19 25 Active documented as of this encounter (statuses as of 03/10/2024) Active Problems Problem Noted Date Diagnosed Date [...] dependence, uncomplicated 04/27/2020 Overview (07/30/2022): Managed by [facility] for opoid addiction - takes Subutex (Buprenorphine) [...] as of this encounter (statuses as of 03/10/2024) Resolved Problems Problem Noted Date Diagnosed Date [...] exam 08/08/2020 12/06/2021 Overview (10/22/2021): 10/18 [facility] stress echo normal EF, no CAD, [...] as of this encounter (statuses as of 03/10/2024) Immunizations Name Administration Dates Next Due DT - Diptheria/Tetanus (PEDS) 11/14/1985 ,06/30/1972,05/25/1968,04/20,02/26/1968 Hepatitis B, 20+ yrs 02/06/2014,09/06/2013,08/09 MMR-LUKE - Measles/Mumps/Rubella/Varicella Vaccine 10/13/1972 OPV - Polio Virus Vaccine (Oral) 973,05/25/1968,04/20/1968,02/25 Pneumococcal Conjugate Vacci ne, 20-valent ([id number]) 12/06/2021 Pneumococcal Polysaccharide PPV23 (Pneumovax) 02/15/2009 Rubella [...] Entry Date Author No 06/12/2022 7:56 PM MARGOTT Sushil Arcos RN documented in this encounter Plan of Treatment Upcoming Encounters Date Type Department Care Team (Late st Contact Info) Description 03/21/2024 4:00 PM EST Laboratory Laboratory [facility] [address] [place] [phone] [facility] [address] [place] [address] 03/28/2024 2:40 PM EST Office Visit General Internal Medicine [facility] [address] [place] [address] Ishaan Pepe MD 200 [facility] [place] [address] 04/07/2024 3:40 PM EST Office Visit Hepatology, [facility] [address] [place] [phone] Kathryn Crespo DO [facility] [place] [address] 06/22/2024 2:00 PM EDT Office Visit Rheumatology, [facility] 400 [place] [address] Omega Galvin PA-C [address] [facility], [place] [address] 07/26/2024 2:30 PM EDT Office Visit Gastroenterology, [facility] 132 [facility] [place] [address] Kishore Regalado CRNP [address] [facility] [address] 09/06/2024 3:40 PM EDT Office Visit Pulmonary Medicine, [facility] 132 [facility] [place] [address] Iker Toney MD [address] [place] [address] 12/15/2024 4:15 PM EDT Imaging Radiology [facility] 1st [facility] 132 [facility] [place] [address] Pending Results Name Type Priority Associated Diagnoses Date /Time HEMOGLOBIN A1C Lab Routine Diabetes mellitus (HCC) 03/10/2024 12:52 PM EST VITAMIN A (RETINOL) Lab Routine Vitamin A deficiency 03/10/2024 12:52 PM EST MYCODE SUBSEQUENT ADULT Lab Routine [employer] Other*[id number] 03/10/2024 12:52 PM EST CBC WITH WBC DIFFERENTIAL Lab Routine Liver cirrhosis secondary to nonalcoholic steatohepatitis (SOTOMAYOR) (HCC) 03/10/2024 12:52 PM EST PT INR Lab Routine Liver cirrhosis secondary to nonalcoholic steatohepatitis (SOTOMAYOR) (HCC) 03/10/2024 12:52 PM EST MYCODE SST1 Lab Routine [employer] Other*[id number] 03/10/2024 12:52 PM EST MYCODE SST2 Lab Routine [employer] Other*[id number] 03/10/2024 12:52 PM EST CBC Lab Routine Liver cirrhosis secondary to nonalcoholic steatohepatitis (SOTOMAYOR) (HCC) 03/10/2024 12:52 PM EST DIFFERENTIAL, AUTOMATED Lab Routine Liver cirrhosis secondary to nonalcoholic steatohepatitis (SOTOMAYOR) (HCC) 03/10/2024 12:52 PM EST Scheduled Procedures Name Priority Associated [...] 2023 02/11/2023, 01/03/2022, 04/10/2021, Additional history exists HbA1c 03/02/2024 09/01/2023, 05/01, 07/15/2021, Additional history exists Depression Screening 03/10/2024 03/10/2023 DXA Scan 06/03/2024 06/03/2022, 06/03/2022 Diabetic Eye Exam 07/09/2024 07/10/2023, , 03/27/2022, Additional history exists TSH 08/31/2024 09/01/2023, 05/29, 05/04/2023, Additional history exists Albumin/Creatinine Ratio 10/06/2024 024, 11/11/2022, 11/16/2019, Additional history exists GFR 11/10/2024 11/11/2023, 060 06/2023, 05/04/2023, Additional history exists Mammogram 12/14/2024 12/15/2023, 11/28, 12/08/2022, Additional history exists O2 ASSESSMENT COMPLETED IN PAST YEAR FOR COPD 02/28/2025 02/29/2024 Colonoscopy 11/25/2027 11/24/2022, 10/29, 06/30/2018, Additional history [...] D LEVEL ONCE IN A LIFETIME-USE SMARTSET# [id number] Completed 06/22/2023, 02/11/2023, 08/20/2022, Additional history exists Lung Cancer Screening Completed 09/11/2023 , 06/15/2022, 04/15/2022, Additional history exists HPV (Gardasil) Vaccine Aged Out No lo nger eligible based on patient's age to complete this topic MENINGOCOCCAL (MENACTRA/MENVEO) Aged Out No longer eligible based on patient's age to complete this topic documented as of this encounter Medical Devices Implanted Type Area Band Ripsaw Operator Device Identifier Shelf Expiration Date Model / Serial / Lot Octrode, Lead Kit, 60 Cm Implanted:Qty: 1 on 06/20/2016 by Kirti Devine MD at OR [facility] N/A: Spine Lumbar [employer] 11/21/2017 [id number] / [id number] / Octrode, Lead Kit,60 Cm Implanted:Qty: 1 on 06/20/2016 by Kirti Devine MD at OR [facility] N/A: Spine Lumbar [employer] 05/02/2018 [id number] / [id number] / [place] 1192 - [id number] Implanted:Qty: 2 on 06/20/2016 by Kirti Devine MD at OR [facility] Left: Buttocks [employer] 06/27/2017 [id number] / / [id number] Battery Proclaim Elite 5 - [id number] - [id number] Implanted:Qty: 1 on 06/20/2016 by Kirti Deivne MD at OR [facility] Left: Buttocks [employer] 05/27/2018 [id number] / [id number] / documented as of this encounter Visit [...] and myositis, unspecified Opioid dependence, uncomplicated (HCC) Diabetes mellitus (HCC) Type II or unspecified type diabetes mellitus without mention of complication, not stated as uncontrolled Vitamin A deficiency Unspecified vitamin A deficiency [employer] Other*[id number] Liver cirrhosis secondary to nonalcoholic steatohepatitis (SOTOMAYOR) (HCC) Screening mammogram for breast cancer documented in [...] Agents on File Name Relationship Healthcare Agent [facility] [place] p Communication Jemal Hester Spouse Health Care Repr esentative (appointed verbally by patient or by statute hierarchy) Care Teams Service Dismantler Relationship Specialty Start Date End Date Ishaan Pepe MD [address] [facility] [place] [address] PCP - General Internal Medicine 07/18/21 documented as of this encounter
--- OUTSIDE RECORDS SUMMARY | 2024-06-30 07:09 | External Medical Summary ---
Author Name Unknown Address Unknown Organization K01:LABORATORY C - [address] [place] [address] Laboratory Report Ordering Provider Test Date Status MAKEZNIE VILLARREAL 03/10/2024 12:52:05 Final Observation Date Value Abnormality Reference (Units ) Status MYCODE SPECIMEN-SST 03/10/2024 12:52:05 Freezing of extracted DNA, whole blood and/or serum. Final Performing Location LABORATORY C - [address] [place] [address]
--- OUTSIDE RECORDS SUMMARY | 2024-06-30 07:09 | External Medical Summary ---
Author Name Unknown Address Unknown Organization : Laboratory Report Ordering Provider Test Date Status DAMARI CASTILLO 03/10/2024 12:52:05 Final Observation Date Value Abnormality Reference (Units ) Status Vitamin A, level 03/10/2024 12:52:05 32 Below low nor mal 38-98 (mcg/dL) Final Vitamin supplementation with in 24 hours prior to
blood draw may affect the accuracy of the results.
This test was developed and its analytical performance
characteristics have been determined by [facility] [place], [place]. It has
not been cleared or approved by the U.S. Food and Drug
Administration. This assay has been validated pursuant
to the CLIA regulations and is used for clinical
purposes.

Test Performed at:
[facility]
[address] [facility]
[place] [address]
Tom Valdes M.D., Ph.D.,Director of Laboratories Performing Location
--- OUTSIDE RECORDS SUMMARY | 2024-06-30 07:09 | External Medical Summary | Summary of Care ---
Author Name Unknown Organization [facility] Address [address] [facility] [place] [address] Phone [phone] Care Team Providers Care Director Of Clinical Applications Name Role Phone Ishaan Pepe MD Primary Care Provider + Reason for Visit * Reason Comments Follow Up Cirrhosis GERD Pt reports that she feels great! She would like to talk about the MRI results. Encounter Details Date Type Department Care Team (Latest Contact Info) Description 03/10/2024 12:00 PM EST Office Visit Gastroenterology, [facility] [address] [place] [address] Kishore Regalado CRNP [address] [facility] [address] Liver cirrhosis secondary to nonalcoholic steatohepatitis (SOTOMAYOR) (HCC)* Allergies Active Allergy Reactions Criticality Noted Date Comments Adhesive Tape Rash 01/05/2009 Iodinated Contrast Media Tachypnea 07/02/2022 Povidone-Iodine 10/05/2018 Other reaction(s): . Omeprazole Anaphylaxis High 01/03/2010 Tongue itchy, ear throbbing documented as of this encounter (statuses as of 03/11/2024) Medications ProAir HFA 108 (90 Base) MCG/ACT [...] Capsule 3 4 9:12 AM EDT 10/22/19 Active Additional Information Patient not taking.Reported on 03/10/2024 Synthroid 112 MCG Oral TabletIndications: Acquired hypothyroidism Take 1 Tablet by mouth in the morning. (at least 30 min prior to breakfast or other meds). 90 Tablet 3 4 8:19 AM EDT 03/24/20 Active Methocarbamol 750 MG Oral Tablet (Robamol) [...] 1,000 mcgIndications:Intestinal postoperative nonabsorption 1000 mcg IM [id number] 06/22/2023 05/23/19 25 Active documented as of this encounter (statuses as of 03/11/2024) Active Problems Problem Noted Date Diagnosed Date [...] dependence, uncomplicated 04/27/2020 Overview (07/30/2022): Managed by [facility] for opoid addiction - takes [...] as of this encounter (statuses as of 03/11/2024) Resolved Problems Problem Noted Date Diagnosed Date [...] adult exam 08/08/2020 12/06/2021 Overview (10/22/2021): 10/18 [facility] stress echo normal EF, no CAD, [...] as of this encounter (statuses as of 03/11/2024) Immunizations Name Administration Dates Next Due DT - Diptheria/Tetanus (PEDS) 11/14/1985 ,06/30/1972,05/25/1968,04/20,02/26/1968 Hepatitis B, 20+ yrs 02/06/2014,09/06/2013,08/09 MMR-LUKE - Measles/Mumps/Rubella/Varicella Vaccine 10/13/1972 OPV - Polio Virus Vaccine (Oral) 973,05/25/1968,04/20/1968,02/25 Pneumococcal Conjugate Vacci ne, 20-valent ([id number]) 12/06/2021 Pneumococcal Polysaccharide PPV23 (Pneumovax) 02/15/2009 Rubella Vaccine 08/03/1968 Seasonal Influenza Virus Vac cine, Unspecified Formulation 04/10/2021,12/30/2019,04/18/2019 Seasonal Influenza, PF, 6 M & above, IM , (FluLaval or Fluzone) 02/11/2023,01/03/2022,04/10/2021,12/29,04/18/2019 TD - Tetanus/Diptheria (ADULT) 01/16/1997 TDAP (age [...] Sign Reading Time Taken Comments Blood Pressure 157/73 03/10/2024 12:06 PM EST Pulse 88 03/10/2024 12:06 PM EST Temperature 37 °C (98.6 °F) 03/10/2024 12:06 PM EST Respiratory Rate - - Oxygen Saturation - - Inhaled Oxygen Concentration - - Weight 65 kg (143 lb 3.2 oz) 03/10/2024 12:06 PM EST Height - - Body Mass Index 25.37 09/07/2023 3:43 PM EDT documented in this [...] Sushil Arcos RN documented in this encounter Progress Notes * Kishore Regalado CRNP - 03/11/2024 8:59 AM EST MELD 3.0: 7 at 03/10/2024 12:52 PM [...] years Sex: Female at 03/10/2024 12:52 PM * Kishore Regalado CRNP - 03/10/2024 12:12 PM EST History of Present Illness: Recall that Ms. Arely Hester is a 58 year old F with PMH obesity S/P RYGB 2019, DVT on Eliquis, COPD, hypothryoidism, C-diff, neurostimulator in planted and on methadone. Has hx of narcotic addiction. She is here for recheck of SOTOMAYOR cirrhosis c/b HE ascites, and LE seen most recently in clinic by Dr. Crespo in July. She presents w her today. MRI pending for tomorrow. MRI of the liver 12/21 showed a 1.5 x 1.0 anterolateral aspect of segment 5 LIRADs 3 lesion MRI of the liver 05/23 no mass. MRI of the liver 12/2022 showed a 1.3 cm liver lesion seen only on arterial phase so felt to be a shunt or transient hepatic enhancement. LI-RADS 2. MRI of the liver 09/2022 with a LI-RADS 3 liver lesion. Fm hx: Father pancreatic cancer. Decompensations: Varices: no Ascites: yes. With decreasing salt intake and increasing exercise, has been able to decrease diuretic use to Lasix 40mg daily on a prn basis which she takes once a week or so. Still w some mild RLL edema. Has had paracentesis several times most recently approx 15m ago. Had severe bilat edema [id number] ago and was on Lasix 80AM, 40PM, Aldactone 100 daily. SBP: no HRS: no HE: ? She states she has never had HE but that Kishore put her on this but she denies any history HCC: no. Liver lesions being monitored Screening: EGD: 10/2022- no varices Colonoscopy 10/2022- normal. Repeat in 5 years. Liver imaging:MRI liver MRI liver 12/2022- LIRADS 2 liver lesion, MRI liver 09/2022- LI-RADS 3 liverlesion MRI liver 12/04/23: Hepatosplenomegaly with suggestion of mild hepatic steatosis and nodular contour indicating underlying fibrotic/cirrhotic morphology with and enhancing observation within the anterolateral aspect of segment 5 measuring 1.5 x 1.0 cm, which appears wedged shaped, is without T2 or restricted diffusion correlate, or washout or capsule favored to represent vascular/perfusional shunting. LI-RADS 3. MRI liver 05/15/23: Hepatic cirrhosis, no evidence of mass. Previous cholecystectomy and gastric bypass procedure. MRI liver 01/12/2023: Impression: Motion degraded exam with a 1.3 [...] liver at 20 cm MRI abdomen 10/24/2022: 1. Cirrhotic liver. Observation 1: 8 mm focus of enhancement segment 3 of the liver. It is uncertain if this represents a vascular shunt or true lesion. Follow-up MRI in 3-6 months is recommended to assess for growth. LI-RADS 3 EGD 10/2022: - No endoscopic esophageal abnormality to explain patient's dysphagia. Esophagus dilated. Dilated. - Gastric bypass with a small-sized pouch and intact staple line. Gastrojejunal anastomosis characterized by healthy appearing mucosa. - No specimens collected. Colonoscopy 11/24/2022: - The examined portion of the ileum was normal. - Internal hemorrhoids. - The examination was otherwise normal. - No specimens collected. EXAM: BP 157/73 | Pulse 88 | Temp 37 °C (98.6 °F) | Wt 65 kg (143 lb 3.2 oz) | BMI 25.37 kg/m² | BSA 1.7 m² GENERAL: 58 year old female well developed and well nourished in no acute distress SKIN: no rashes, ulcers, or spider angiomata HEENT: normocephalic, sclera clear, pharynx normal NECK: supple, no lymphadenopathy, no masses or thyroid enlargement LUNGS: clear to auscultation anterior and posterior HEART: regular rate & rhythm, no murmurs and no gallops ABDOMEN: no ascites, normo-active bowel sounds, soft, non-tender, non-distended no masses, no hepatosplenomegaly, no rebound or guarding, no bruits EXTREMITIES: RLL mild non pitting edema, LLL no edema, slight dull red discoloration to both lower legs, no palmar erythema, no edema, no clubbing, no cyanosis NEURO: no lateralizing findings, Sensory/Motor grossly normal, mentally very alert/attentive. IMPRESSION/RECOMMENDATIONS: 58 year old female with SOTOMAYOR [...] October 2024 Due for colonoscopy October 2027 I spent a total of 40 minutes on the date of service in review of patient's record, and previously obtained information in person and appropriate medical visit, discussion and education of plan, withpatient and/or caregiver, placing orders for tests/referral/procedures as medically necessary and documentation of pertinent clinical information in patient's medical records for their visit today. Thank you for the opportunity to be involved in the care of this patient. MARK Quevedo documented in this encounter Nursing Notes * Georgiana Dickey LPN - 03/10/2024 12:06 PM EST Chief Complaint Patient presents with Follow Up Cirrhosis GERD Pt reports that she feels great! She would like to talk about the MRI results. documented in this encounter Plan of Treatment Upcoming Encounters Date Type Department Care Team (Late st Contact Info) Description 03/21/2024 4:00 PM EST Laboratory Laboratory [facility] [address] [facility] [place] [id number] [address] [place] [address] 03/28/2024 2:40 PM EST Office Visit General Internal Medicine [facility] [address] [facility] [place] [address] Ishaan Pepe MD [address] [facility] [place] [address] 04/07/2024 3:40 PM EST Office Visit Hepatology, [address] [phone] Kathryn Crespo, [address] [facility] [place] [address] 06/22/2024 2:00 PM EDT Office Visit Rheumatology, [facility] [address] [place] [address] Omega Galvin PAKalpesh [address] [facility] [place] [address] 07/26/2024 2:30 PM EDT Office Visit Gastroenterology, [facility] [address] [facility] [place] [address] Kishore Regalado CRNP [address] [facility] [place] [address] 09/06/2024 3:40 PM EDT Office Visit Pulmonary Medicine, [facility] [address] [facility] [place] [address] Iker Toney MD [address] [place] [address] 12/15/2024 4:15 PM EDT Imaging Radiology [facility] [address] [facility] [place] [address] Scheduled Procedures Name Priority Associated Diagnoses Date/Ti me COLONOSCOPY FLEXIBLE PROXIMA L DIAGNOSTIC Recall History of colonic polyps Health Maintenance Due Date Last Done Comments Cologuard 12/24/2012 Sigmoidoscopy 12/24/2012 *ADVANCE DIRECTIVE NOT ON FILE 03/12/2019 Diabetic Foot Exam 11/15/2020 11/16/2019, 0 09/21/2018, 08/06/2017, Additional history exists DISCUSS TOBACCO CESSATION (REFER TO SMARTSET #1663) 06/25/2023 06/24/2022, 05/27/2022, 05/19/2022, Additional history exists [...] D LEVEL ONCE IN A LIFETIME-USE SMARTSET# 84869 Completed 06/22/2023, 02/11/2023, 08/20/2022, Additional history exists Lung Cancer Screening Completed 09/11/2023 , 06/15/2022, 04/15/2022, Additional history exists HPV (Gardasil) Vaccine Aged Out No lo nger eligible based on patient's age to complete this topic MENINGOCOCCAL (MENACTRA/MENVEO) Aged Out No longer eligible based on patient's age to complete this topic documented as of this encounter Medical Devices Implanted Type [employer] Professional Device Identifier Shelf Expiration Date Model / Serial / Lot Octrode, Lead Kit, 60 Cm Implanted:Qty: 1 on 06/20/2016 by Kirti Devine MD at OR [facility] N/A: Spine Lumbar [employer] 11/21/2017 [id number] / [id number] / Octrode, Lead Kit,60 Cm Implanted:Qty: 1 on 06/20/2016 by Kirti Devine MD at OR [facility] N/A: Spine Lumbar [employer] 05/02/2018 [id number] / [id number] / [place] 1192 - [id number] Implanted:Qty: 2 on 06/20/2016 by Kirti Devine MD at OR [facility] Left: Buttocks [employer] 06/27/2017 [id number] / / [id number] Battery [employer] Elite 5 - [id number] - [id number] Implanted:Qty: 1 on 06/20/2016 by Kirti Devine MD at OR [facility] Left: Buttocks [employer] 05/27/2018 [id number] / [id number] / documented as of this encounter Procedures Procedure Name Priority Date/Time Associated Diagnosis Comments COMPREHENSIVE METABOLIC PANEL Routine 03/10/2024 12:52 PM EST Liver cirrhosis secondary to nonalcoholic steatohepatitis (SOTOMAYOR) (HCC) documented in this encounter Results * PT INR (03/10/2024 12:52 PM EST) Prothrombin Time 13.6 11.6 - 15.2 seconds 03/10/2024 1:42 PM EST [facility] INR 1.0 0.8 - 1.2 03/10/2024 1:42 PM EST [facility] Blood Venous blood specimen / Unknown Venipuncture / Unknown 03/10/2024 12:52 PM EST 03/10/2024 12:52 PM EST Narrative [facility] - 03/10/2024 1:42 PM EST Warfarin Therapy INR: 2.0-3.0 conventional anticoagulation INR: 2.5-3.5 high intensity anticoagulation us Amberrobyn Ro FLORES LAB BLOOD ORDERABLES Final Result [facility] [facility] [place] [address] * (ABNORMAL) COMPREHENSIVE METABOLIC PANEL (03/10/2024 12:52 PM EST) BUN 9 6 - 20 mg/dL 03/10/2024 1:53 PM EST [facility] CREATININE 0.8 0.5 - 1.0 mg/dL 03/10/2024 1:53 PM EST [facility] 57[facility]10 EGFR 90 >=60 mL/min 03/10/2024 1:53 PM EST [facility] 57[facility]10 Comment:eGFR is calculated b ased on the CKD-EPI 2020 equation. SODIUM 140 135 - 146 mmol/L 03/10/2024 1:53 PM EST [facility] POTASSIUM 4.4 3.5 - 5.1 mmol/L 03/10/2024 1:53 PM EST [facility] CHLORIDE 103 98 - 107 mmol/L 03/10/2024 1:53 PM EST [facility] [facility] [facility] CO2 27 22 - 32 mmol/L 03/10/2024 1:53 PM EST [facility] 57[facility]10 ANION GAP 10 7 - 15 mmol/L 03/10/2024 1:53 PM EST [facility] 57[facility]10 GLUCOSE 109 70 - 120 mg/dL 03/10/2024 1:53 PM EST [facility] 57[facility]10 Albumin 4.0 3.8 - 5.0 g/dL 03/10/2024 1:53 PM EST [facility] 57[facility]10 AST 32 10 - 35 U/L 03/10/2024 1:53 PM EST [facility] 57[facility]10 Alkaline Phosphatase 132(H) 35 - 130 U/L 03/10/2024 1:53 PM EST [facility] Bilirubin, Total 0.3 <=1.2 mg/dL 03/10/2024 1:53 PM EST [facility] CALCIUM 9.2 8.4 - 10.2 mg/dL 03/10/2024 1:53 PM EST [facility] Protein 6.8 6.0 - 8.3 g/dL 03/10/2024 1:53 PM EST [facility] ALT 18 10 - 35 U/L 03/10/2024 1:53 PM EST [facility] Blood Venous blood specimen / Unknown Venipuncture / Unknown 03/10/2024 12:52 PM EST 03/10/2024 12:52 PM EST us Kishore FLORES LAB BLOOD ORDERABLES Final Result [facility] [facility] [facility] [address] [facility] [address] documented in this encounter Visit Diagnoses Diagnosis [...] cancer documented in this encounter Administered Medications Active Administered Medications - up to 3 most recent administrations Medication Order MAR Action Action Date Dose Rate Site vitamin b-12 (Cyanocobalamin) inj 1,000 mcg 1,000 mcg, Intramuscular, [id number], First dose on Thu06/22/23 at 1645, Last dose on Thu04/25/24 at 1645, For 12 dosesIndications:Intesti nal postoperative nonabsorption Given 03/10/2024 12:15 PM EST 1,000 mcg Deltoid Left Upper Given 11/10/2023 12:20 PM EDT 1,000 mcg D eltoid Left Upper Given 09/01/2023 4:11 PM EDT 1,000 mcg De ltoid Left Upper documented in this encounter Advance Directives * [...] Name Relationship Healthcare Agent Relationshi p Communication [facility] Spouse Health Care Repr esentative (appointed verbally by patient or by statute hierarchy) Care Teams Director Of Clinical Applications Relationship Specialty Start Date End Date Ishaan Pepe MD [address] [place] [address] PCP - General Internal Medicine 07/18/21 documented as of this encounter
--- OUTSIDE RECORDS SUMMARY | 2024-06-30 07:09 | External Medical Summary | Summary of Care ---
Author Name Unknown Organization [facility] Address [address] [facility] [place] [address] Phone [phone] Care Team Providers Care Incendiary Powder Mixer Name Role Phone Ishaan Pepe MD Primary Care Provider + Reason for Visit * Reason Comments Outpatient Testing Encounter Details Date Type Department Care Team (Latest Contact Info) Description 03/10/2024 12:50 PM EST Laboratory Laboratory, [facility] [address] [place] [address] [facility] [address] [place] [address] Diabetes mellitus (HCC); Vitamin A deficiency; [employer] Other*[id number]; Liver cirrhosis secondary to nonalcoholic steatohepatitis (SOTOMAYOR) (HCC) Allergies Active Allergy Reactions Criticality Noted Date Comments Adhesive Tape Rash 01/05/2009 Iodinated Contrast Media Tachypnea 07/02/2022 Povidone-Iodine 10/05/2018 Other reaction(s): . Omeprazole Anaphylaxis High 01/03/2010 Tongue itchy, ear throbbing documented as of this encounter (statuses as of 03/15/2024) Medications ProAir HFA 108 (90 Base) MCG/ACT [...] 1,000 mcgIndications:Intestinal postoperative nonabsorption 1000 mcg IM [id number] 06/22/2023 05/23/19 25 Active documented as of this encounter (statuses as of 03/15/2024) Active Problems Problem Noted Date Diagnosed Date [...] dependence, uncomplicated 04/27/2020 Overview (07/30/2022): Managed by [facility] for opoid addiction - takes Subutex [...] as of this encounter (statuses as of 03/15/2024) Resolved Problems Problem Noted Date Diagnosed Date [...] adult exam 08/08/2020 12/06/2021 Overview (10/22/2021): 10/18 [facility] stress echo normal EF, no CAD, Gr [...] as of this encounter (statuses as of 03/15/2024) Immunizations Name Administration Dates Next Due DT - Diptheria/Tetanus (PEDS) 11/14/1985 ,06/30/1972,05/25/1968,04/20,02/26/1968 Hepatitis B, 20+ yrs 02/06/2014,09/06/2013,08/09 MMR-LUKE - Measles/Mumps/Rubella/Varicella Vaccine 10/13/1972 OPV - Polio Virus Vaccine (Oral) 973,05/25/1968,04/20/1968,02/25 Pneumococcal Conjugate Vacci ne, 20-valent ([id number]) 12/06/2021 Pneumococcal Polysaccharide PPV23 (Pneumovax) 02/15/2009 Rubella [...] PM EST Office Visit General Internal Medicine [facility] [place] [address] [place] [address] Ishaan Pepe MD [address] [place] [address] 03/21/2024 4:00 PM EST Laboratory [facility] [place] [address] [place] [phone] [facility] [address] [place] [address] 04/07/2024 3:40 PM EST Office Visit Hepatology, [facility] [address] [place] [phone] Kathryn Crespo DO [address] [place] [address] 06/22/2024 2:00 PM EDT Office Visit Rheumatology, [facility] [address] [place] [address] Omega Galvin PA-C [address] [facility], [place] [address] 07/26/2024 2:30 PM EDT Office Visit Gastroenterology, [facility] [address] [facility] [place] [address] Kishore Regalado CRNP [address] [facility] [place] [address] 09/06/2024 3:40 PM EDT Office Visit Pulmonary Medicine, [facility] [address] [facility] [place] [address] Iker Toney MD [address] [place] [address] 12/15/2024 4:15 PM EDT Imaging Radiology [facility] [address] [facility] [place] [address] Scheduled Procedures Name Priority Associated Diagnoses Date/Ti me COLONOSCOPY FLEXIBLE PROXIMA L DIAGNOSTIC Recall History of colonic polyps Health Maintenance Due Date Last Done Comments Cologuard 12/24/2012 Sigmoidoscopy 12/24/2012 *ADVANCE DIRECTIVE NOT ON FILE 03/12/2019 Diabetic Foot Exam 11/15/2020 11/16/2019, 0 09/21/2018, 08/06/2017, Additional history exists DISCUSS TOBACCO CESSATION (REFER TO SMARTSET #3290) 06/25/2023 06/24/2022, 05/27/2022, 05/19/2022, Additional history exists [...] D LEVEL ONCE IN A LIFETIME-USE SMARTSET# 40354 Completed 06/22/2023, 02/11/2023, 08/20/2022, Additional history exists Lung Cancer Screening Completed 09/11/2023 , 06/15/2022, 04/15/2022, Additional history exists HPV (Gardasil) Vaccine Aged Out No lo nger eligible based on patient's age to complete this topic MENINGOCOCCAL (MENACTRA/MENVEO) Aged Out No longer eligible based on patient's age to complete this topic documented as of this encounter Medical Devices Implanted Type Area Continuing Education Instructor Device Identifier Shelf Expiration Date Model / Serial / Lot Octrode, Lead Kit, 60 Cm Implanted:Qty: 1 on 06/20/2016 by Kirti Devine MD at OR [facility] N/A: Spine Lumbar [employer] 11/21/2017 [id number] / [id number] / Octrode, Lead Kit,60 Cm Implanted:Qty: 1 on 06/20/2016 by Kirti Devine MD at OR [facility] N/A: Spine Lumbar [employer] 05/02/2018 [id number] / [id number] / [place] 1192 - [id number] Implanted:Qty: 2 on 06/20/2016 by Kirti Devine MD at OR [facility] Left: Buttocks [employer] 06/27/2017 [id number] / / [id number] Battery Proclaim Elite 5 - [id number] - [id number] Implanted:Qty: 1 on 06/20/2016 by Kirti Devine MD at OR [facility] Left: Buttocks [employer] 05/27/2018 [id number] / [id number] / documented as of this encounter Procedures Procedure Name Priority Date/Time Associated Diagnosis Comments MYCODE INITIAL ADULT-2SST Routine 03/10/2024 12:52 PM EST [employer] Other*[id number] DIFFERENTIAL, AUTOMATED Routine 03/10/2024 12:52 PM EST Liver cirrhosis secondary to nonalcoholic steatohepatitis (SOTOMAYOR) (HCC) MYCODE SUBSEQUENT ADULT Routine 03/10/2024 12:52 PM EST [employer] Other*[id number] VITAMIN A (RETINOL) Routine 03/10/2024 12:52 PM EST Vitamin A deficiency HEMOGLOBIN A1C Routine 03/10/2024 12:52 PM EST Diabetes mellitus (HCC) CBC Routine 03/10/2024 12:52 PM EST Liver cirrhosis secondary to nonalcoholic steatohepatitis (SOTOMAYOR) (HCC) PT INR Routine 03/10/2024 12:52 PM EST Liver cirrhosis secondary to nonalcoholic steatohepatitis (SOTOMAYOR) (HCC) CBC Routine 03/10/2024 12:52 PM EST Liver cirrhosis secondary to nonalcoholic steatohepatitis (SOTOMAYOR) (HCC) documented in this encounter Results * DIFFERENTIAL, AUTOMATED (03/10/2024 12:52 PM EST) WBC 5.83 4.00 - 10.80 K/uL 03/10/2024 1:27 PM EST [facility] [place] [facility]10 Neutrophils % 71.0 40.0 - 75.0 % 03/10/2024 1:27 PM EST [facility] [place] 57[facility]10 Lymphocytes % 22.3 18.0 - 42.0 % 03/10/2024 1:27 PM EST [facility] [place] 57[facility]10 Monocytes % 5.8 1.0 - 11.0 % 03/10/2024 1:27 PM EST [facility] [place] [facility]10 Eosinophils % 0.7 0.0 - 6.0 % 03/10/2024 1:27 PM EST [facility] [place] [facility]10 Basophils % 0.2 0.0 - 2.0 % 03/10/2024 1:27 PM EST [facility] Absolute Neutrophils 4.14 1.80 - 7.70 K/uL 03/10/2024 1:27 PM EST [facility] [place] [facility]10 Absolute Lymphocytes 1.30 1.00 - 4.80 K/ul 03/10/2024 1:27 PM EST [facility] [place] [facility]10 Absolute Monocytes 0.34 0.00 - 1.10 K/uL 03/10/2024 1:27 PM EST [facility] [place] [facility]10 Absolute Eosinophils 0.04 0.00 - 0.70 K/uL 03/10/2024 1:27 PM EST [facility] [place] [facility]10 Absolute Basophils 0.01 0.00 - 0.20 K/uL 03/10/2024 1:27 PM EST [facility] Blood Venous blood specimen / Unknown Venipuncture / Unknown 03/10/2024 12:52 PM EST 03/10/2024 12:52 PM EST us Kishore FLORES LAB BLOOD ORDERABLES Final Result [facility] [place] [facility] [place] [address] * CBC (03/10/2024 12:52 PM EST) WBC 5.83 4.00 - 10.80 K/uL 03/10/2024 1:27 PM EST [facility] RBC 4.66 3.85 - 5.15 M/uL 03/10/2024 1:27 PM EST [facility] HGB 12.1 12.0 - 15.3 g/dL 03/10/2024 1:27 PM EST [facility] HCT 39.3 36.0 - 45.2 % 03/10/2024 1:27 PM EST [facility] MCV 84.3 81.5 - 97.5 fL 03/10/2024 1:27 PM EST [facility] [place] [facility]10 MCH 26.0 27.0 - 34.0 pg 03/10/2024 1:27 PM EST [facility] [place] [facility]10 MCHC 30.8 32.0 - 36.0 g/dL 03/10/2024 1:27 PM EST [facility] [place] [facility]10 RDW 14.0 11.5 - 15.5 % 03/10/2024 1:27 PM EST [facility] [place] [facility]10 PLT 185 140 - 400 K/uL 03/10/2024 1:27 PM EST [facility] [place] [facility]10 MPV 12.1 6.6 - 11.1 fL 03/10/2024 1:27 PM EST [facility] [place] [facility]10 Blood Venous blood specimen / Unknown Venipuncture / Unknown 03/10/2024 12:52 PM EST 03/10/2024 12:52 PM EST Kishore FLORES LAB BLOOD ORDERABLES Final Result [facility] [place] [facility] [place] [address] * MYCODE SST2 (03/10/2024 12:52 PM EST) Pathologist [facility] Spec[facility] Freezing of extracted DNA, whole blood and/or serum. 03/11/2024 10:02 AM EST LABORATORY [facility] Blood Venous blood specimen / Unknown Venipuncture / Unknown 03/10/2024 12:52 PM EST 03/10/2024 12:52 PM EST us Jennifer MARTINEZA LAB BLOOD ORDERABLES Ilana l Result LABORATORY [facility] [address] [facility] [place] [address] * PT INR (03/10/2024 12:52 PM EST) Prothrombin Time 13.6 11.6 - 15.2 seconds 03/10/2024 1:42 PM EST [facility] [place] [facility]10 INR 1.0 0.8 - 1.2 03/10/2024 1:42 PM EST [facility]ORY [facility] Blood Venous blood specimen / Unknown Venipuncture / Unknown 03/10/2024 12:52 PM EST 03/10/2024 12:52 PM EST Narrative [facility] [place] [facility]10 - 03/10/2024 1:42 PM EST Warfarin Therapy INR: 2.0-3.0 conventional anticoagulation INR: 2.5-3.5 high intensity anticoagulation Kishore FLORES LAB BLOOD ORDERABLES Final Result Performing Organization Address City/[facility]/ZIP Co de Phone Number LABORATORY [place] [address] [facility] [place] [address] * (ABNORMAL) VITAMIN A (RETINOL) (03/10/2024 12:52 PM EST) [facility] Vitamin A (Retinol) 32(L) 38 - 98 mcg/dL 03/15/2024 1:25 AM EST [facility] [place] Comment: Vitamin supplementation within 24 hours prior to blood draw may affect the accuracy of the results. This test was developed and its analytical performance characteristics have been determined by [facility] [place], [place]. It has not been cleared or approved by the U.S. Food and Drug Administration. This assay has been validated pursuant to the CLIA regulations and is used for clinical purposes. Test Performed at: [facility] [address] [address] Tom Valdes M.D., Ph.D.,Director of Laboratories Blood Venous blood specimen / Unknown Venipuncture / Unknown 03/10/2024 12:52 PM EST 03/10/2024 12:52 PM EST Ishaan Pepe MD LAB BLOOD ORDERABLES Fin al Result Performing Organization Address City/[facility]/ZIP Co de Phone Number [facility] [place] [address] [place] [address] * (ABNORMAL) HEMOGLOBIN A1C (03/10/2024 12:52 PM EST) Hemoglobin A1C 5.9(H) 4.0 - 5.6 % 03/10/2024 8:32 PM EST LAB[facility] Comment:The use of HbA1c to monitor glycemic status is based on normal hemoglobin and HbA composition. This test should not be used in patients with abnormal hemoglobin that affects the half life of the red blood cell or the in vivo glycation rates. Estimated Average Glucose 123 <126 mg/dL 03/10/2024 8:32 PM EST [facility] Blood Venous blood specimen / Unknown Venipuncture / Unknown 03/10/2024 12:52 PM EST 03/10/2024 12:52 PM EST us Ishaan Pepe MD LAB BLOOD ORDERABLES Fin al Result LABORATORY [facility] [address] [place] [address] documented in this encounter Visit Diagnoses Diagnosis [...] Vitamin A deficiency Unspecified vitamin A deficiency [employer] Other*[id number] Liver cirrhosis secondary to nonalcoholic steatohepatitis (SOTOMAYOR) [...] Relationship Healthcare Agent Relationshi p Communication Jemal [place] Spouse Health Care Repr esentative (appointed verbally by patient or by statute hierarchy) Care Teams Incendiary Powder Mixer Relationship Specialty Start Date End Date Ishaan Pepe MD [address] [place] [address] PCP - General Internal Medicine 07/18/21 documented as of this encounter
--- OUTSIDE RECORDS SUMMARY | 2024-06-30 07:09 | External Medical Summary | Summary of Care ---
Author Name Unknown Organization [facility] Address [address] [facility] [place] [address] Phone [phone] Care Team Providers Care Corrections Corporal Name Role Phone Ishaan Pepe MD Primary Care Provider + Encounter Details Date Type Department Care Team (Late st Contact Info) Description 03/11/2024 Orders Only Gastroenterology, [facility] [address] [facility] [place] [address] Kishore Regalado CRNP [address] [place] [address] Allergies Active Allergy Reactions Criticality Noted Date [...] 06/03/19 23 Active Vitamin D3 50 MCG (1999 [place]) Oral CapsuleIndications :Vitamin D deficiency Take [...] 1,000 mcgIndications:Intestinal postoperative nonabsorption 1000 mcg IM [id number] 06/22/2023 05/23/19 25 Active documented as of [...] dependence, uncomplicated 04/27/2020 Overview (07/30/2022): Managed by [facility] for opoid addiction - takes Subutex [...] adult exam 08/08/2020 12/06/2021 Overview (10/22/2021): 10/18 [facility] stress echo normal EF, no CAD, [...] (Oral) 973,05/25/1968,04/20/1968,02/25 Pneumococcal Conjugate Vacci ne, 20-valent ([id number]) 12/06/2021 Pneumococcal Polysaccharide PPV23 (Pneumovax) 02/15/2009 Rubella [...] No 06/12/2022 7:56 PM EDSushil Ling RN * Are you blind or do [...] PM EST Office Visit General Internal Medicine [facility] [place] [address] [place] [address] Ishaan Pepe MD [address] [facility] [place] [address] 03/21/2024 4:00 PM EST Laboratory [facility] [place] [address] [place] [phone] [place] [address] [address] [place] [address] 04/07/2024 3:40 PM EST Office Visit Hepatology, [facility] [place] [address] [phone] Kathryn Crespo DO [address] [place] [address] 06/22/2024 2:00 PM EDT Office Visit Rheumatology, [address] [address] Omega Galvin PA-C [address] [place] [address] 07/26/2024 2:30 PM EDT Office Visit Gastroenterology, [facility] [address] [facility] [place] [address] Kishore Regalado CRNP [address] [facility] [place] [address] 09/06/2024 3:40 PM EDT Office Visit Pulmonary Medicine, [facility] [address] [facility] [place] [address] Iker Toney MD [address] [place] [address] 12/15/2024 4:15 PM EDT Imaging [facility] [address] [facility] [place] [address] Scheduled Procedures Name Priority Associated Diagnoses Date/Ti me COLONOSCOPY FLEXIBLE PROXIMA L DIAGNOSTIC Recall History of colonic polyps Health Maintenance Due Date Last Done Comments Cologuard 12/24/2012 Sigmoidoscopy 12/24/2012 *ADVANCE DIRECTIVE NOT ON FILE 03/12/2019 Diabetic Foot Exam 11/15/2020 11/16/2019, 0 09/21/2018, 08/06/2017, Additional history exists DISCUSS TOBACCO CESSATION (REFER TO SMARTSET #9195) 06/25/2023 06/24/2022, 05/27/2022, 05/19/2022, Additional history exists [...] D LEVEL ONCE IN A LIFETIME-USE SMARTSET# 54150 Completed 06/22/2023, 02/11/2023, 08/20/2022, Additional history exists Lung Cancer Screening Completed 09/11/2023 , 06/15/2022, 04/15/2022, Additional history exists HPV (Gardasil) Vaccine Aged Out No lo nger eligible based on patient's age to complete this topic MENINGOCOCCAL (MENACTRA/MENVEO) Aged Out No longer eligible based on patient's age to complete this topic documented as of this encounter Medical Devices Implanted Type Area Band Splitter Device Identifier Shelf Expiration Date Model / Serial / Lot Octrode, Lead Kit, 60 Cm Implanted:Qty: 1 on 06/20/2016 by Kirti Devine MD at OR [facility] N/A: Spine Lumbar [employer] 11/21/2017 [id number] / [id number] / Octrode, Lead Kit,60 Cm Implanted:Qty: 1 on 06/20/2016 by Kirti Devine MD at OR [facility] N/A: Spine Lumbar [employer] 05/02/2018 [id number] / [id number] / [place] 1192 - [id number] Implanted:Qty: 2 on 06/20/2016 by Kirti Devine MD at OR [facility] Left: Buttocks [employer] 06/27/2017 [id number] / / [id number] Battery Proclaim Elite 5 - [id number] - [id number] Implanted:Qty: 1 on 06/20/2016 by Kirti Devine MD at OR [facility] Left: Buttocks [employer] 05/27/2018 [id number] / [id number] / documented as of this encounter Procedures [...] by a [facility] contracted radiologist. Kishore FLORES RAD MRI-MRA Final Resu lt [...] Relationship Healthcare Agent Relationshi p Communication Jemal [place] Spouse Health Care Repr esentative (appointed verbally by patient or by statute hierarchy) Care Teams Corrections Corporal Relationship Specialty Start Date End Date Ishaan Pepe MD [address] [facility] [place] [address] PCP - General Internal Medicine 07/18/21 documented as of this encounter
--- OUTSIDE RECORDS SUMMARY | 2024-06-30 07:09 | External Medical Summary ---
Author Name Unknown Address Unknown Organization [id number]:LABORATORY [place] [address] - [address] [place] [address] Laboratory Report Ordering Provider Test Date Status SHON MANCIA 03/10/2024 12:52:05 Final Observation Date Value Abnormality Reference (Units ) Status BUN 03/10/2024 12:52:05 9 6-20 (mg/dL) Final Creatinine 03/10/2024 12:52:05 0.8 0.5-1.0 (mg/dL) Final Glomerular filtration rate/1.73 sq M.predicted [Volume Rate/Area] in Serum, Plasma or Blood by Creatinine-based formula (CKD-EPI) 03/10/2024 12:52:05 90 >=60 (mL/min) Final eGFR is calculated based on the CKD-EPI 2020 equation. Sodium 03/10/2024 12:52:05 140 135-146 (m mol/L) Final Potassium 03/10/2024 12:52:05 4.4 3.5-5.1 (m mol/L) Final Cl 03/10/2024 12:52:05 103 98-107 (mm ol/L) Final CO2 03/10/2024 12:52:05 27 22-32 (mmo l/L) Final Anion gap 03/10/2024 12:52:05 10 7-15 (mmol /L) Final Glucose 03/10/2024 12:52:05 109 70-120 (mg /dL) Final Albumin 03/10/2024 12:52:05 4.0 3.8-5.0 (g /dL) Final AST (Aspartate aminotransferase) 03/10/2024 12:52:05 32 10-35 (U/L) Fin al Alk Phos 03/10/2024 12:52:05 132 Above high normal 35 -130 (U/L) Final Bilirubin, Total 03/10/2024 12:52:05 0.3 <=1 .2 (mg/dL) Final Calcium 03/10/2024 12:52:05 9.2 8.4-10.2 ( mg/dL) Final Protein 03/10/2024 12:52:05 6.8 6.0-8.3 (g /dL) Final ALT (Alanine aminotransferase) 03/10/2024 12:52:05 18 10-35 (U/L) Chris amato Performing Location LABORATORY [place] [facility]-[address] 0 - [address] [place] [address]
--- OUTSIDE RECORDS SUMMARY | 2024-06-30 07:09 | External Medical Summary ---
Author Name Unknown Address Unknown Organization [id number]:LAB[facility]ATORY [facility] [address] [place] [address] Laboratory Report Ordering Provider Test Date Status DAMRAI CASTILLO 03/10/2024 12:52:05 Final Observation Date Value Abnormality Reference (Units ) Status HbA1C 03/10/2024 12:52:05 5.9 Above high normal 4. 0-5.6 (%) Final The use of HbA1c to monitor glycemic status is based on normal hemoglobin and HbA composition. This test should not be used in patients with abnormal hemoglobin that affects the half life of the red blood cell or the in vivo glycation rates. Glucose, estimated average 03/10/2024 12:52:05 123 <126 (mg/dL) Final Performing Location LAB[facility]ATORY [facility] - [address] [place] [address]
--- OUTSIDE RECORDS SUMMARY | 2024-06-30 07:09 | External Medical Summary | Summary of Care ---
Author Name Unknown Organization [facility] Address [address] [facility] [place] [address] Phone [phone] Care Team Providers Care Network Engineer Name Role Phone Ishaan Pepe MD Primary Care Provider + Reason for Visit * Reason Comments Follow Up Cirrhosis GERD Pt reports that she feels great! She would like to talk about the MRI results. 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 Had severe bilat edema imefhx17k ago and was on Lasix 80AM, 40PM, [...] Description 03/21/2024 4:00 PM EST Laboratory Laboratory [facility] Kristal Andino [address] [place] [id number] [place], [facility]en[facility] [address] [place] [address] 03/28/2024 2:40 PM EST Office Visit General Internal Medicine [facility] [address] [facility] [place], [place] [address] Ishaan Pepe MD [address] [facility] [place], [place] [address] 04/07/2024 3:40 PM EST Office Visit Hepatology, [facility] [address] [place] [id number] Kathryn Crespo DO [address] [facility] [address] 06/22/2024 2:00 PM EDT Office Visit Rheumatology, [address] [address] Omega Galvin, PA-C [address] [facility] [place], [place] [address] 07/26/2024 2:30 PM EDT Office Visit Gastroenterology, [facility] [address] [facility] [place] [address] Kishore [facility]alado CRNP [address] [facility] [address] 09/06/2024 3:40 PM EDT Office Visit Pulmonary Medicine, [facility] [address] [facility] [place] [address] Iker Toney MD [address] [place] [address] 12/15/2024 4:15 PM EDT Imaging Radiology [facility] [address] [facility] [place] [address] Scheduled Procedures Name Priority Associated Diagnoses Date/Ti me COLONOSCOPY FLEXIBLE PROXIMA L DIAGNOSTIC Recall History of colonic polyps Health Maintenance Due Date Last Done Comments Cologuard 12/24/2012 Sigmoidoscopy 12/24/2012 *ADVANCE DIRECTIVE NOT ON FILE 03/12/2019 Diabetic Foot Exam 11/15/2020 11/16/2019, 0 09/21/2018, 08/06/2017, Additional history exists DISCUSS TOBACCO CESSATION (REFER TO SMARTSET #8865) 06/25/2023 06/24/2022, 05/27/2022, 05/19/2022, Additional history exists [...] D LEVEL ONCE IN A LIFETIME-USE SMARTSET# [id number] Completed 06/22/2023, 02/11/2023, 08/20/2022, Additional history exists Lung Cancer Screening Completed 09/11/2023 , 06/15/2022, 04/15/2022, Additional history exists HPV (Gardasil) Vaccine Aged Out No lo nger eligible based on patient's age to complete this topic MENINGOCOCCAL (MENACTRA/MENVEO) Aged Out No longer eligible based on patient's age to complete this topic documented as of this encounter Medical Devices Implanted Type Area Screening Technician Device Identifier Shelf Expiration Date Model / Serial / Lot Octrode, Lead Kit, 60 Cm Implanted:Qty: 1 on 06/20/2016 by Kirti Devine MD at OR [facility] N/A: Spine Lumbar [employer] 11/21/2017 [id number] / [id number] / Octrode, Lead Kit,60 Cm Implanted:Qty: 1 on 06/20/2016 by Kirti Devine MD at OR [facility] N/A: Spine Lumbar [employer] 05/02/2018 [id number] / [id number] / [place] 1192 - [id number] Implanted:Qty: 2 on 06/20/2016 by Kirti Devine MD at OR [facility] Left: Buttocks [employer] 06/27/2017 [id number] / / [id number] Battery [employer] Elite 5 - [id number] - [id number] Implanted:Qty: 1 on 06/20/2016 by Kirti Devine MD at OR [facility] Left: Buttocks [employer] 05/27/2018 [id number] / [id number] / documented as of this encounter Procedures [...] EST 03/10/2024 12:52 PM EST Narrative [facility] - 03/10/2024 1:42 PM EST Warfarin Therapy INR: 2.0-3.0 conventional anticoagulation INR: 2.5-3.5 high intensity anticoagulation us Kishore FLORES LAB BLOOD ORDERABLES Final Result [facility] [place] [address] * (ABNORMAL) COMPREHENSIVE METABOLIC PANEL (03/10/2024 12:52 PM EST) BUN 9 6 - 20 mg/dL 03/10/2024 1:53 PM EST [facility] CREATININE 0.8 0.5 - 1.0 mg/dL 03/10/2024 1:53 PM EST [facility] EGFR 90 >=60 mL/min 03/10/2024 1:53 PM EST [facility] Comment:eGFR is calculated b ased on the CKD-EPI 2020 equation. SODIUM 140 135 - 146 mmol/L 03/10/2024 1:53 PM EST [facility] POTASSIUM 4.4 3.5 - 5.1 mmol/L 03/10/2024 1:53 PM EST [facility] CHLORIDE 103 98 - 107 mmol/L 03/10/2024 1:53 PM EST [facility] CO2 27 22 - 32 mmol/L 03/10/2024 1:53 PM EST [facility] ANION GAP 10 7 - 15 mmol/L 03/10/2024 1:53 PM EST [facility] GLUCOSE 109 70 - 120 mg/dL 03/10/2024 1:53 PM EST [facility] Albumin 4.0 3.8 - 5.0 g/dL 03/10/2024 1:53 PM EST [facility] [place] [facility] AST 32 10 - 35 U/L 03/10/2024 1:53 PM EST [facility] [place] [facility] Alkaline Phosphatase 132(H) 35 - 130 [...] FLORES LAB BLOOD ORDERABLES Final Result [facility] [address] [place] [address] documented in this encounter Visit Diagnoses Diagnosis [...] (Cyanocobalamin) inj 1,000 mcg 1,000 mcg, Intramuscular, [id number], First dose on Thu06/22/23 at 1645, Last [...] patient or by statute hierarchy) Care Teams Network Engineer Relationship Specialty Start Date End Date Ishaan Pepe MD [address] [place] [address] PCP - General Internal Medicine 07/18/21 documented as of this encounter
--- OUTSIDE RECORDS SUMMARY | 2024-06-30 07:09 | External Medical Summary ---
Author Name Unknown Address Unknown Organization [id number]:[facility] [address] - [address] [place] [address] Laboratory Report Ordering Provider Test Date Status SHON MANCIA 03/10/2024 12:52:05 Final Observation Date Value Abnormality Reference (Units ) Status WBC, Total 03/10/2024 12:52:05 5.83 4.00-10.8 0 (K/uL) Final RBC 03/10/2024 12:52:05 4.66 3.85-5.15 (M/uL) Final Hemoglobin 03/10/2024 12:52:05 12.1 12.0-15.3 (g/dL) Final HCT 03/10/2024 12:52:05 39.3 36.0-45.2 (%) Final MCV 03/10/2024 12:52:05 84.3 81.5-97.5 (fL) Final MCH 03/10/2024 12:52:05 26.0 27.0-34.0 (pg) Final MCHC 03/10/2024 12:52:05 30.8 32.0-36.0 (g/dL) Final RDW 03/10/2024 12:52:05 14.0 11.5-15.5 (%) Final Platelets 03/10/2024 12:52:05 185 140-400 (K /uL) Final MPV 03/10/2024 12:52:05 12.1 6.6-11.1 ( fL) Final Performing Location [facility] 0 - [address] [place] [address]
--- OUTSIDE RECORDS SUMMARY | 2024-06-30 07:10 | External Medical Summary | Summary of Care ---
Author Name Unknown Organization [facility] Address [address] [place] [address] Phone [phone] Care Team Providers Care Director Of Individual Giving Name Role Phone Ishaan Pepe MD Primary Care Provider + Reason for Visit * Reason Comments Urinary Tract Infection Symptoms Encounter Details Date Type Department Care Team (Latest Contact Info) Description 02/29/2024 4:30 PM EST [facility]venient [facility] Visit Formerly [facility], [place] [address] [place] [address] Sander Bland PA-C [address], [place] [phone] Dysuria*; Acute cystitis with hematuria Allergies Active Allergy Reactions Criticality Noted Date Comments Adhesive Tape Rash 01/05/2009 Iodinated Contrast Media Tachypnea 07/02/2022 Povidone-Iodine 10/05/2018 Other reaction(s): . Omeprazole Anaphylaxis High 01/03/2010 Tongue itchy, ear throbbing documented as of this encounter (statuses as of 02/29/2024) Medications ProAir HFA 108 (90 Base) MCG/ACT Inhalation Aerosol SolutionIndication s:Chest congestion,Acute cough Inhale 2 Puffs by mouth every 4 hours as needed for Wheezing. 18 g 11 02/13/20 22 Active Up4 Probiotics Womens Oral Capsule Take by [...] 4 9:12 AM EDT 10/22/19 23 Active Synthroid 112 MCG Oral TabletIndications: [...] Patient taking differently: TID PRN, Reported on 02/29/2024 Methenamine Mandelate 0.5 GM Oral Tablet (Mandelamine) Take 2 Tablets by mouth in the morning and 2 Tablets in the evening. 120 Tablet 11 07/22/19 24 Active Estradiol 0.1 MG/GM Vaginal Cream (Estrace) [...] 4 1:08 PM EDT 07/28/19 24 Active Varenicline Tartrate 1 MG Oral Tablet (Chantix)Indicatio ns:Tobacco use TAKE 1 TABLET BY MOUTH TWICE DAILY (MORNING AND BEDTIME) 60 Tablet 08/29/19 24 Active EPINEPHrine 0.3 MG/0.3ML Injection Solution [...] taking differently:30 g OralTID PRN, Reported on 02/29/2024 Furosemide 40 MG Oral Tablet (Lasix)Indications :Liver cirrhosis secondary to nonalcoholic steatohepatitis (SOTOMAYOR) (HCC),Leg edema, right Take 1 pill in the morning daily for edema 11/10/19 24 Active LORazepam 1 MG Oral Tablet (Ativan)Indication s:Anxiety Take one hour prior to dental procedure and one hour prior to MRI 1 Tablet 11/24/19 24 Active Ondansetron HCl 8 MG Oral Tablet (Zofran)Indication s:Nausea TAKE ONE TABLET BY MOUTH EVERY 8 HOURS NEEDED FOR NAUSEA. 180 Tablet 2 4 9:50 AM EDT 12/28/19 24 Active Mirtazapine 30 MG Oral Tablet (Remeron) TAKE ONE TABLET BY MOUTH AT BEDTIME 90 Tablet 2 4 9:50 AM EDT 12/28/19 24 025 Active Sulfamethoxazole-T rimethoprim 800-160 MG Oral Tablet (Bactrim DS)Indications:Acu te cystitis with hematuria Take 1 Tablet by mouth in the morning and 1 Tablet before bedtime. Do all this for 5 days. Until gone. 10 Tablet 02/29/20 24 024 Active Hospital, Clinic, or Other Facility Administered Medication Ordered Dose Route Frequency Start Date End Date Status vitamin b-12 (Cyanocobalamin) inj 1,000 mcgIndications:Intestinal postoperative nonabsorption 1000 mcg IM [id number] 06/22/2023 05/23/19 25 Active documented as of this encounter (statuses as of 02/29/2024) Active Problems Problem Noted Date Diagnosed Date [...] as of this encounter (statuses as of 02/29/2024) Resolved Problems Problem Noted Date Diagnosed Date [...] exam 08/08/2020 12/06/2021 Overview (10/22/2021): 10/18 [facility] stress echo normal EF, no CAD, [...] as of this encounter (statuses as of 02/29/2024) Immunizations Name Administration Dates Next Due DT - Diptheria/Tetanus (PEDS) 11/14/1985 ,06/30/1972,05/25/1968,04/20,02/26/1968 Hepatitis B, 20+ yrs 02/06/2014,09/06/2013,08/09 MMR-LUKE - Measles/Mumps/Rubella/Varicella Vaccine 10/13/1972 OPV - Polio Virus Vaccine (Oral) 973,05/25/1968,04/20/1968,02/25 Pneumococcal Conjugate Vacci ne, 20-valent ([id number]) 12/06/2021 Pneumococcal Polysaccharide PPV23 (Pneumovax) 02/15/2009 Rubella [...] Sign Reading Time Taken Comments Blood Pressure 132/88 02/29/2024 3:39 PM EST Pulse 86 02/29/2024 3:39 PM EST Temperature 37.2 °C (98.9 °F) 02/29/2024 3:39 PM ES T Respiratory Rate 20 02/29/2024 3:39 PM EST Oxygen Saturation 98% 02/29/2024 3:39 PM EST Inhaled Oxygen Concentration - - Weight 67 kg (147 lb 9.6 oz) 02/29/2024 3:39 PM EST Height - - Body Mass Index 26.15 09/07/2023 3:43 PM EDT documented in this [...] 7:56 PM MARGOTT Sushil Arcos RN documented as of this encounter Mental Status * Because of a physical, mental, or emotional condition, do you have serious difficulty concentrating, remembering, or making decisions? (5 years old or older) Answer Entry Date Author No 06/12/2022 7:56 PM MARGOTT Sushil Arcos RN documented in this encounter Progress Notes * Sander Bland PA-C - 02/29/2024 3:49 PM EST [facility] Basic Exam Arely Hester is a 58 year old year old female who presents for evaluation of UTI Sx x 3 days withDysuria. Denies N/V/D, Fever, Dizziness Review of Systems Constitutional: Negative. HENT: Negative. Eyes: Negative. Respiratory: Negative. Cardiovascular: Negative. Gastrointestinal: Negative. Endocrine: Negative. Genitourinary: Positive for dysuria. Musculoskeletal: Negative. Skin: Negative. Allergic/Immunologic: Negative. Neurological: Negative. Hematological: Negative. Psychiatric/Behavioral: Negative. PAST MEDICAL HISTORY: Past Medical History: Diagnosis Date Acute deep [...] performed by Alice Cotton MD at ENDOSCOPY [facility] COLONOSCOPY, DIAGNOSTIC (RECTUM) 06/29/2018 poor prep, repeat / COLONOSCOPY FLEXIBLE PROXIMAL DIAGNOSTIC performed by Alice Cotton MD at ENDOSCOPY [facility] COLONOSCOPY, DIAGNOSTIC (RECTUM) 06/30/2018 biopsies show hyperplastic polyps/COLONOSCOPY FLEXIBLE PROXIMAL DIAGNOSTIC performed by Deandra Caballero MD at ENDOSCOPY [facility] COLONOSCOPY, DIAGNOSTIC (RECTUM) N/A 11/24/2022 hemorrhoids/recall 5 years/COLONOSCOPY FLEXIBLE PROXIMAL DIAGNOSTIC performed by Mark Baptiste DO at OR [facility] EGD, FLEXIBLE, DIAGNOSTIC 05/14/2017 erosive gastropathy, duodenitis/ESOPHAGOGASTRODUODENOSCOPY (EGD), FLEXIBLE, TRANSORAL, DIAGNOSTIC performed by Alice Cotton MD at END[facility]COPY [facility] EGD, FLEXIBLE, DIAGNOSTIC 08/21/2017 mild gastritis/ESOPHAGOGASTRODUODENOSCOPY (EGD), FLEXIBLE, TRANSORAL, DIAGNOSTIC performed by Alice Cotton MD at [facility]COPY [facility] EGD, FLEXIBLE, DIAGNOSTIC N/A 04/28/2018 ESOPHAGOGASTRODUODENOSCOPY (EGD), FLEXIBLE, TRANSORAL, DIAGNOSTIC performed by Jose E Callahan [facility] OR [facility] EGD, FLEXIBLE, DIAGNOSTIC 06/29/2018 GJ inflammation & severe stenosis, repeat 2 wks/ESOPHAGOGASTRODUODENOSCOPY (EGD), FLEXIBLE, TRANSORAL, DIAGNOSTIC performed by Ailce Cotton MD at [facility] EGD, FLEXIBLE, DIAGNOSTIC 07/14/2018 anastomotic stenosis, repeat 2 wks/ESOPHAGOGASTRODUODENOSCOPY (EGD), FLEXIBLE, TRANSORAL, DIAGNOSTIC performed by Alice Cotton MD at [facility] EGD, FLEXIBLE, DIAGNOSTIC 07/28/2018 normal/ESOPHAGOGASTRODUODENOSCOPY (EGD), FLEXIBLE, TRANSORAL, DIAGNOSTIC performed by Alice Cotton MD at [facility] EGD, FLEXIBLE, DIAGNOSTIC 10/21/2018 normal bx/ESOPHAGOGASTRODUODENOSCOPY (EGD), FLEXIBLE, TRANSORAL, DIAGNOSTIC performed by Deandra Caballero MD at [facility] EGD, FLEXIBLE, DIAGNOSTIC N/A 05/13/2019 ESOPHAGOGASTRODUODENOSCOPY (EGD), FLEXIBLE, TRANSORAL, DIAGNOSTIC performed by Filiberto Haile [facility] ENDOSCOPY [facility] EGD, FLEXIBLE, DIAGNOSTIC 01/27/2020 gastritis / ESOPHAGOGASTRODUODENOSCOPY (EGD), FLEXIBLE, TRANSORAL, DIAGNOSTIC performed by Deandra Caballero MD at [facility] EGD, FLEXIBLE, DIAGNOSTIC 07/18/2021 normal / ESOPHAGOGASTRODUODENOSCOPY (EGD), FLEXIBLE, TRANSORAL, DIAGNOSTIC performed by Nikko Martino MD at [facility] EGD, FLEXIBLE, DIAGNOSTIC N/A 11/24/2022 normal/ESOPHAGOGASTRODUODENOSCOPY (EGD), FLEXIBLE, TRANSORAL, DIAGNOSTIC performed by Mark Baptiste DO at OR [facility] EGD, FLEXIBLE, TRANSENDOSCOPIC DILATION <30MM N/A 07/07/2018 ESOPHAGOGASTRODUODENOSCOPY (EGD), FLEXIBLE, TRANSORAL, BALLOON DILATION LESS THAN 30MM performed byJose E Callahan MD at [facility] EGD, FLEXIBLE,W/ENDOSCOPIC US 09/05/2016 fatty liver, gastric & duodenal ulcers, normal bx, repeat EGD 2 mo/[facility] EVAL NEUROSTIM PULSE GEN, W/ REPROGRAM N/A 04/18/2016 NEUROSTIMULATOR PULSE GENERATOR/ TRANSMITTER, WITH INTRAOPERATIVE OR SUBSEQUENT PROGRAMMING performed by Kirti Devine MD at [facility] EVAL NEUROSTIM PULSE GEN, W/ REPROGRAM N/A 06/20/2016 NEUROSTIMULATOR PULSE GENERATOR/ TRANSMITTER, WITH INTRAOPERATIVE OR SUBSEQUENT PROGRAMMING performed by Kirti Devine MD at OR [facility] IMPLANT EPIDURAL NEUROELECTRODES N/A 04/18/2016 PERCUTANEOUS IMPLANTATION NEUROSTIMULATOR EPIDURAL performed by Kirti Devine MD at OR [facility] IMPLANT EPIDURAL NEUROELECTRODES N/A 06/20/2016 PERCUTANEOUS IMPLANTATION NEUROSTIMULATOR EPIDURAL performed by Kirti Devine MD at OR [facility] IMPLANT SPINAL NEURORECEIVER N/A 06/20/2016 INSERTION OR REPLACEMENT SPINAL NEUROSTIMULATOR GENERATOR performed by Kirti Devine MD at OR [facility] IMPLANT SPINAL NEURORECEIVER Left 08/09/2020 INSERTION OR REPLACEMENT SPINAL NEUROSTIMULATOR GENERATOR performed by Victor Manuel Scott MD at OR [facility] INFORMATION breast surgery x2 INFORMATION back surgery x2 LAPAROSCOPE PROCEDURE, LIVER N/A 04/28/2018 UNLISTED LAPAROSCOPIC PROCEDURE LIVER performed by Jose E Callahan MD at OR [facility] LAPAROSCOPIC GASTRIC BYPASS/BAKARI-EN-Y N/A 04/28/2018 LAPAROSCOPIC GASTRIC RESTRICTIVE BYPASS BAKARI EN Y performed by Jose E Callahan MD at [facility] LUMBAR HEMILAMINECTOMY L4-5 in 01 and L3-4 in 00 OTHER PERIPHERAL NERVE NEUROPLASTY, ARM/LEG Right 03/31/2019 NEUROPLASTY MAJOR PERIPHERAL NERVE ARM OR LEG performed by Elmer Sanford MD at OR [facility] REMOVAL OF APPENDIX REMOVAL OF OVARY(S) 2007 Oopherectomy, Each removed seperately REMOVAL OF TONSILS, UNDER AGE 12 REMOVE GALLBLADDER REPAIR INITIAL INCISIONAL OR VENTRAL HERNIA; REDUCIBLE umbilical hernia repaired at the same time, mesh TOTAL ABD HYSTERECTOMY W/WO REMOVAL OF TUBE(S) 1994 for dysplasia (ANSHU) Social History Tobacco Use Smoking status: Every Day Current packs/day: 1.00 Average packs/day: 1 pack/day for 35.0 years (35.0 ttl pk-yrs) Types: Cigarettes Smokeless tobacco: Never Substance Use Topics Alcohol use: No Vaping/E-Cigarette Use Vaping/E-Cigarette Use Never User Vaping/E-Cigarette Substances Vaping/E-Cigarette Devices Patient Active Problem List Diagnosis Acquired hypothyroidism Fibromyalgia Postlaminectomy syndrome, lumbar Thoracic and lumbosacral neuritis Mixed hyperlipidemia Severe tobacco use disorder S/P gastric bypass Stricture of esophagus Peroneal palsy, right Migraine variant Idiopathic peripheral neuropathy Liver cirrhosis secondary to nonalcoholic steatohepatitis (SOTOMAYOR) ([facility]) Hx of transient ischemic attack (TIA) Opioid dependence, uncomplicated (HCC) Gastro-esophageal reflux disease without esophagitis Intestinal postoperative nonabsorption History of depression Constipation Other osteoporosis without current pathological fracture Recurrent infections Chronic deep vein thrombosis (DVT) of right peroneal vein ([facility]) High risk for fracture due to osteoporosis by DEXA scan Other ascites Iron deficiency anemia secondary to inadequate dietary iron intake Paroxysmal SVT (supraventricular tachycardia) ([facility]) COPD, group D, by GOLD 2017 classification ([facility]) Mild mitral regurgitation History of pulmonary embolism Type 2 diabetes mellitus without complication (HCC) Hyperparathyroidism ([facility]) Review of patient's allergies indicates: Allergen Reactions Prilosec [Omeprazole] Anaphylaxis Tongue itchy, ear throbbing Adhesive Tape Rash Iodinated Contrast Media Tachypnea Povidone-Iodine Other reaction(s): . Current Outpatient Medications Medication Sig Dispense Refill ProAir HFA 108 (90 Base) MCG/ACT Inhalation Aerosol Solution Inhale 2 Puffs by mouth every 4 hours as needed for Wheezing. 18 g 11 Up4 Probiotics Womens Oral Capsule Take by mouth. Calcium Citrate 250 MG Oral Tablet Take 2 Tablets by mouth in the morning and 2 Tablets before bedtime. Buprenorphine HCl 8 MG Sublingual Tablet Sublingual (Subutex) Place 1 Tablet under the tongue 4 times a day. 90 Tablet 0 Vitamin D3 50 MCG (1999 UT) Oral Capsule Take 1 Capsule by mouth in the morning. 90 Capsule 3 Synthroid 112 MCG Oral Tablet Take 1 Tablet by mouth in the morning. (at least 30 min prior to breakfast or other meds). 90 Tablet 3 Methocarbamol 750 MG Oral Tablet (Robamol) TAKE ONE TABLET BY MOUTH IN THE MORNING AND ONE TABLET AT NOON AND ONE TABLET BEFORE BEDTIME FOR MUSCLE SPASM (Patient taking differently: 3 times a day as needed.) 180 Tablet 3 Methenamine Mandelate 0.5 GM Oral Tablet (Mandelamine) Take 2 Tablets by mouth in the morning and 2Tablets in the evening. 120 Tablet 11 Estradiol 0.1 MG/GM Vaginal Cream (Estrace) Administer 0.2 g into the vagina once a day on Thursday, Thursday, and Thursday only. Apply periurethrally as directed. 42.5 g 1 Pantoprazole Sodium 40 MG Oral Tablet Delayed Release (Protonix) Take 1 Tablet by mouth in the morning and 1 Tablet before bedtime. 180 Tablet 3 Varenicline Tartrate 1 MG Oral Tablet (Chantix) TAKE 1 TABLET BY MOUTH TWICE DAILY (MORNING AND BEDTIME) 60 Tablet 0 EPINEPHrine 0.3 MG/0.3ML Injection Solution Auto-injector (Autoinjector) [...] pill in the morning daily for edema LORazepam 1 MG Oral Tablet (Ativan) Take one hour prior to dental procedure and one hour prior to MRI 1 Tablet 0 Ondansetron HCl 8 MG Oral Tablet (Zofran) TAKE ONE TABLET BY MOUTH EVERY 8 HOURS NEEDED FOR NAUSEA. 180 Tablet 2 Mirtazapine 30 MG Oral Tablet (Remeron) TAKE ONE TABLET BY MOUTH AT BEDTIME 90 Tablet 2 Sulfamethoxazole-Trimethoprim 800-160 MG Oral Tablet (Bactrim DS) Take 1 Tablet by mouth in the morning and 1 Tablet before bedtime. Do all this for 5 days. Until gone. 10 Tablet 0 Current Facility-Administered Medications Medication Dose Route Frequency Provider Last Rate Last Admin vitamin b-12 (Cyanocobalamin) inj 1,000 mcg 1,000 mcg Intramuscular Q4 Weeks Rosalina Velazquez PA-C 1,000 mcg at 11/10/23 1220 Nursing Notes and Vital Signs reviewed. BP 132/88 | Pulse 86 | Temp 37.2 °C (98.9 °F) (Tympanic) | Resp 20 | Wt 67 kg (147 lb 9.6 oz) | SpO2 98% | BMI 26.15 kg/m² | BSA 1.73 m² Physical Exam Constitutional: Appearance: Normal appearance. She is normal weight. Cardiovascular: Rate and Rhythm: Normal rate and regular rhythm. Pulses: Normal pulses. Heart sounds: Normal heart sounds. Pulmonary: Effort: Pulmonary effort is normal. Breath sounds: Normal breath sounds. Abdominal: General: Abdomen is flat. Bowel sounds are normal. Palpations: Abdomen is soft. Tenderness: There is abdominal tenderness in the suprapubic area. There is no right CVA tenderness or left CVA tenderness. Musculoskeletal: Cervical back: Normal range of motion and neck supple. Skin: General: Skin is warm. Neurological: General: No focal deficit present. Mental Status: She is alert and oriented to person, place, and time. Mental status is at baseline. Psychiatric: Mood and Affect: Mood normal. Behavior: Behavior normal. Thought Content: Thought content normal. Judgment: Judgment normal. ASSESSMENT: Dysuria (Primary) - URINALYSIS, POINT OF CARE WBC Large, Nitrite + - URINALYSIS, REFLEX TO MICROSCOPIC; Future; Expected date: 02/29/2024 Acute cystitis with hematuria - Sulfamethoxazole-Trimethoprim 800-160 MG Oral Tablet (Bactrim DS); Take 1 Tablet by mouth in the morning and 1 Tablet before bedtime. Do all this for 5 days. Until gone. - Increase water Follow Up: Return if symptoms worsen or fail to improve, for Clinic Visit. | For: Clinic Visit Sander Bland PA-C [address] [phone] documented in this encounter Nursing Notes * Deborah Tucker LPN - 02/29/2024 3:40 PM EST Nursing Notes: CC: Chief Complaint Patient presents with Urinary Tract Infection Symptoms Brief Hx: Patient presents today for pain with urination. Duration/Onset: x3 days ago OTC meds: Nothing OTC Accompanied by: self documented in this encounter Plan of Treatment Upcoming Encounters Date Type Department Care Team (Late st Contact Info) Description 03/21/2024 4:00 PM EST Laboratory Laboratory [facility] [address] [facility] [place] [phone] [facility] [address] [facility] [place] [address] 03/28/2024 2:40 PM EST Office Visit General Internal Medicine [facility] [place] [address] [facility] [place] [address] Ishaan Pepe MD [address] [facility] [place] [address] 04/07/2024 3:40 PM EST Office Visit Hepatology, [address] [phone] Kathryn Crespo DO [address] [facility] [place] [address] 06/22/2024 2:00 PM EDT Office Visit Rheumatology, [facility] [address] [place], [place] [phone] Omega Galvin PA-C [address] [place] [address] [place] [address] 09/06/2024 3:40 PM EDT Office Visit Pulmonary Medicine, [facility] [address] [place] [address] Iker Toney MD [address] [place] [address] 12/15/2024 4:15 PM EDT Imaging Radiology [address], [place] [address] [place] [address] Pending Results Name Type Priority Associated Diagnoses Date /Time URINALYSIS, REFLEX TO MICROSCOPIC Lab Routine Dysuria 02/29/2024 3:59 PM EST Scheduled Orders Name Type Priority Associated Diagnoses Orde r Schedule URINALYSIS, REFLEX TO MICROSCOPIC Lab Routine Dysuria Expected: 02/29/2024, Expires: 02/28/2025 Scheduled Procedures Name Priority Associated Diagnoses Date/Ti [...] 04/10/2021, Additional history exists HbA1c 03/02/2024 09/01/2023, /09/2022, 07/15/2021, Additional history exists Depression Screening 03/10/2024 03/10/2023 DXA Scan 06/03/2024 06/03/2022, 06/03/2022 Diabetic Eye Exam 07/09/2024 07/10/2023, , 03/27/2022, Additional history exists TSH 08/31/2024 09/01/2023, 05/29, 05/04/2023, Additional history exists Albumin/Creatinine Ratio 10/06/2024 024, 11/11/2022, 11/16/2019, Additional history exists GFR 11/10/2024 11/11/2023, 06/0 06/2023, 05/04/2023, Additional history exists Mammogram 12/14/2024 [...] D LEVEL ONCE IN A LIFETIME-USE SMARTSET# [id number] Completed 06/22/2023, 02/11/2023, 08/20/2022, Additional history exists Lung Cancer Screening Completed 09/11/2023 , 06/15/2022, 04/15/2022, Additional history exists HPV (Gardasil) Vaccine Aged Out No lo nger eligible based on patient's age to complete this topic MENINGOCOCCAL (MENACTRA/MENVEO) Aged Out No longer eligible based on patient's age to complete this topic documented as of this encounter Medical Devices Implanted Type Area Weir Fisherman Device Identifier Shelf Expiration Date Model / Serial / Lot Octrode, Lead Kit, 60 Cm Implanted:Qty: 1 on 06/20/2016 by Kirti Devine MD at OR [facility] N/A: Spine Lumbar [employer] 11/21/2017 [id number] / [id number] / Octrode, Lead Kit,60 Cm Implanted:Qty: 1 on 06/20/2016 by Kirti Devine MD at OR [facility] N/A: Spine Lumbar [employer] 05/02/2018 [id number] / [id number] / [place] 1192 - [id number] Implanted:Qty: 2 on 06/20/2016 by Kirti Devine MD at OR [facility] Left: Buttocks [employer] 06/27/2017 [id number] / / [id number] Battery [employer] Elite 5 - [id number] - [id number] Implanted:Qty: 1 on 06/20/2016 by Kirti Devine MD at OR [facility] Left: Buttocks [employer] 05/27/2018 [id number] / [id number] / documented as of this encounter Procedures Procedure Name Priority Date/Time Associated Diagnosis Comments URINALYSIS, POINT OF CARE (ENTER/EDIT) Routine 02/29/2024 3:40 PM EST Dysuria documented in this encounter Results * (ABNORMAL) URINALYSIS, POINT OF CARE (ENTER/EDIT) (02/29/2024 3:40 PM EST) Color, Urine Dark Yellow Yellow or Light Yellow Clarity, Urine Cloudy Clear Glucose, Urine Negative Negative mg/dL Bilirubin, Urine Negative Negative Ketone, Urine Negative Negative mg/dL Specific [place], Urine 1.015 1.003 - 1.030 Blood, Urine Moderate Negative pH, Urine 6.0 5.0 - 7.5 units Protein, Urine Trace Negative mg/dL Urobilinogen, Urine 1.0 0.2 - 1.0 mg/dL Nitrite, Urine Positive Negative Esterase, Urine Large Negative Urine 02/29/2024 3:40 PM EST Sander Bland PA-C LAB POINT OF CARE TEST ENTER/ED IT ORDERABLES Final Result documented in this encounter Visit Diagnoses Diagnosis [...] and myositis, unspecified Opioid dependence, uncomplicated (HCC) Dysuria- Primary Acute cystitis with hematuria Acute cystitis Screening mammogram for breast cancer documented in [...] by statute hierarchy) Care Teams Director Of Individual Giving Relationship Specialty Start Date End Date Ishaan Pepe MD [address] [place] [address], [place] [address] PCP - General Internal Medicine 07/18/21 documented as of this encounter
--- OUTSIDE RECORDS SUMMARY | 2024-06-30 07:10 | External Medical Summary | Summary of Care ---
Author Name Unknown Organization [facility] Address [address] [place] [address] Phone [phone] Care Team Providers Care Fire Extinguisher Installer Name Role Phone Ishaan Pepe MD Primary Care Provider + Encounter Details Date Type Department Care Team (Late st Contact Info) Description 02/15/2024 Orders Only Outcomes Research Department [address] [place] [address] Jennifer Lamb CHRA IAMINTOIT Research Other*[id number] Allergies Active Allergy Reactions Criticality Noted Date Comments Adhesive Tape Rash 01/05/2009 Iodinated Contrast Media Tachypnea 07/02/2022 Povidone-Iodine 10/05/2018 Other reaction(s): . Omeprazole Anaphylaxis High 01/03/2010 Tongue itchy, ear throbbing documented as of this encounter (statuses as of 02/15/2024) Medications ProAir HFA 108 (90 Base) MCG/ACT [...] Patient taking differently: TID PRN, Reported on 01/14/2024 Methenamine Mandelate 0.5 GM Oral Tablet (Mandelamine) Take 2 Tablets by mouth in the morning and 2 Tablets in the evening. 120 Tablet 11 07/22/19 24 Active Additional Information Patient not taking.Reported on 11/10/2023 Estradiol 0.1 MG/GM Vaginal Cream (Estrace) Administer [...] taking differently:30 g OralTID PRN, Reported on 01/14/2024 Furosemide 40 MG Oral Tablet (Lasix)Indications :Liver [...] 9:50 AM EDT 12/28/19 24 025 Active Hospital, Clinic, or Other Facility Administered Medication Ordered Dose Route Frequency Start Date End Date Status vitamin b-12 (Cyanocobalamin) inj 1,000 mcgIndications:Intestinal postoperative nonabsorption 1000 mcg IM [id number] 06/22/2023 05/23/19 25 Active documented as of this encounter (statuses as of 02/15/2024) Active Problems Problem Noted Date Diagnosed Date [...] dependence, uncomplicated 04/27/2020 Overview (07/30/2022): Managed by [facility] for opoid addiction - takes [...] as of this encounter (statuses as of 02/15/2024) Resolved Problems Problem Noted Date Diagnosed Date [...] 08/08/2020 12/06/2021 Overview (10/22/2021): 10/18 [facility] stress echo normal EF, no CAD, Gr [...] as of this encounter (statuses as of 02/15/2024) Immunizations Name Administration Dates Next Due DT - Diptheria/Tetanus (PEDS) 11/14/1985 ,06/30/1972,05/25/1968,04/20,02/26/1968 Hepatitis B, 20+ yrs 02/06/2014,09/06/2013,08/09 MMR-LUKE - Measles/Mumps/Rubella/Varicella Vaccine 10/13/1972 OPV - Polio Virus Vaccine (Oral) 973,05/25/1968,04/20/1968,02/25 Pneumococcal Conjugate Vacci ne, 20-valent ([id number]) 12/06/2021 Pneumococcal Polysaccharide PPV23 (Pneumovax) 02/15/2009 Rubella [...] Care Team (Late st Contact Info) Description 02/24/2024 3:30 PM EST Telemedicine Urology [facility] [address] [place] [address] Odalys Hand MD [address] [place] [address] 03/21/2024 4:00 PM EST Laboratory Laboratory [place] [address] [address] [place] [phone] [place] [address] [address] [place] [address] 03/28/2024 2:40 PM EST Office Visit General Internal Medicine [facility] [place] [address] [place] [address] Ishaan Pepe MD 200 [facility] [place] [address] 04/07/2024 3:40 PM EST Office Visit Hepatology, [address], [place] [address] [facility] [place] [phone] Kathryn Crespo DO 132 [facility] [place] [address] 06/22/2024 2:00 PM EDT Office Visit Rheumatology, [facility] [address] [facility], [place] [address] Omega Galvin PA-C [address] [email or web address] [address] 09/06/2024 3:40 PM EDT Office Visit Pulmonary Medicine, [facility] 132 [facility] [place] [address] Iker Toney MD [address] [place] [address] 12/15/2024 4:15 PM EDT Imaging Radiology [facility] [address] [facility] [place] [address] Scheduled Orders Name Type Priority Associated Diagnoses Orde r Schedule MYCODE SUBSEQUENT ADULT Lab Routine MyCode Research Other*[id number] Every 6 Months for 2 Occurrences starting 02/15/2024 until 03/06/2025 Scheduled Procedures Name Priority Associated Diagnoses Date/Ti me COLONOSCOPY FLEXIBLE PROXIMA L DIAGNOSTIC Recall History of colonic polyps Health Maintenance Due Date Last Done Comments Cologuard 12/24/2012 Sigmoidoscopy 12/24/2012 *ADVANCE DIRECTIVE NOT ON FILE 03/12/2019 Diabetic Foot Exam 11/15/2020 11/16/2019, 0 09/21/2018, 08/06/2017, Additional history exists DISCUSS TOBACCO CESSATION (REFER TO SMARTSET #2485) 06/25/2023 06/24/2022, 05/27/2022, 05/19/2022, Additional history exists Fecal Occult Blood Test 11/20/2023 11/20/19, 11/19/2022, 11/19/2022 COVID-19 Vaccine (1 - 2024-25 season) 2023 Influenza Vaccine (FLU shot) (#1) [...] ASSESSMENT COMPLETED IN PAST YEAR FOR COPD 01/13/2025 01/14/2024 Colonoscopy 11/25/2027 11/24/2022, 10/29, 06/30/2018, Additional history [...] D LEVEL ONCE IN A LIFETIME-USE SMARTSET# 09513 Completed 06/22/2023, 02/11/2023, 08/20/2022, Additional history exists Lung Cancer Screening Completed 09/11/2023 , 06/15/2022, 04/15/2022, Additional history exists HPV (Gardasil) Vaccine Aged Out No lo nger eligible based on patient's age to complete this topic MENINGOCOCCAL (MENACTRA/MENVEO) Aged Out No longer eligible based on patient's age to complete this topic documented as of this encounter Medical Devices Implanted Type Area Seafood Manager Device Identifier Shelf Expiration Date Model / Serial / Lot Octrode, Lead Kit, 60 Cm Implanted:Qty: 1 on 06/20/2016 by Kirti Devine MD at OR [facility] N/A: Spine Lumbar [employer] 11/21/2017 [id number] / [id number] / Octrode, Lead Kit,60 Cm Implanted:Qty: 1 on 06/20/2016 by Kirti Devine MD at OR [facility] N/A: Spine Lumbar [employer] 05/02/2018 [id number] / [id number] / [place] 1192 - [id number] Implanted:Qty: 2 on 06/20/2016 by Kirti Devine MD at OR [facility] Left: Buttocks [employer] 06/27/2017 [id number] / / [id number] Battery Proclaim Elite 5 - [id number] - [id number] Implanted:Qty: 1 on 06/20/2016 by Kirti Devine MD at OR [facility] Left: Buttocks [employer] 05/27/2018 [id number] / [id number] / documented as of this encounter Visit [...] and myositis, unspecified Opioid dependence, uncomplicated (HCC) MyCode Research Other*[id number] Screening mammogram for breast cancer documented in [...] Healthcare Agent Relationshi p Communication [facility] Spouse Health Care Repr esentative (appointed verbally by patient or by statute hierarchy) Care Teams Fire Extinguisher Installer Relationship Specialty Start Date End Date Ishaan Pepe MD [address] [place] [address] PCP - General Internal Medicine 07/18/21 documented as of this encounter
--- OUTSIDE RECORDS SUMMARY | 2024-06-30 07:10 | External Medical Summary | Summary of Care ---
Author Name Unknown Organization [facility] Address [address] [facility] [place] [address] Phone [phone] Care Team Providers Care Pottery Kiln Builder Name Role Phone Ishaan Pepe MD Primary Care Provider + Reason for Visit * Reason Onset Date Comments Appointment 02/18/2024 Encounter Details Date Type Department Care Team (Late st Contact Info) Description 02/18/2024 Telephone Gastroenterology, [facility] [address] [place] [address] Kishore Regalado CRNP [address] [facility] [place] [address] Appointment Allergies Active Allergy Reactions Criticality Noted Date Comments Adhesive Tape Rash 01/05/2009 Iodinated Contrast Media Tachypnea 07/02/2022 Povidone-Iodine 10/05/2018 Other reaction(s): . Omeprazole Anaphylaxis High 01/03/2010 Tongue itchy, ear throbbing documented as of this encounter (statuses as of 02/18/2024) Medications ProAir HFA 108 (90 Base) MCG/ACT [...] 06/03/19 23 Active Vitamin D3 50 MCG (2000 UT) [...] 1,000 mcgIndications:Intestinal postoperative nonabsorption 1000 mcg IM [id number] 06/22/2023 05/23/19 25 Active documented as of this encounter (statuses as of 02/18/2024) Active Problems Problem Noted Date Diagnosed Date Mild mitral regurgitation 09/01/2023 History of pulmonary embolism 09/01/2023 Type 2 diabetes mellitus without complication Hyperparathyroidism 09/01/2023 COPD, group D, by GOLD 2017 classification 05/11 Overview: Per COPD GOLD Classification Paroxysmal SVT (supraventricular tachycardia) Iron deficiency anemia secon ravni to inadequate dietary iron intake 11/17/2022 Other [...] dependence, uncomplicated 04/27/2020 Overview (07/30/2022): [facility] - takes Subutex (Buprenorphine) [...] as of this encounter (statuses as of 02/18/2024) Resolved Problems Problem Noted Date Diagnosed Date [...] as of this encounter (statuses as of 02/18/2024) Immunizations Name Administration Dates Next Due DT - Diptheria/Tetanus (PEDS) 11/14/1985 ,06/30/1972,05/25/1968,04/20,02/26/1968 Hepatitis B, 20+ yrs 02/06/2014,09/06/2013,08/09 MMR-LUKE - Measles/Mumps/Rubella/Varicella Vaccine 10/13/1972 OPV - Polio Virus Vaccine (Oral) 973,05/25/1968,04/20/1968,02/25 Pneumococcal Conjugate Vacci ne, 20-valent ([id number]) 12/06/2021 Pneumococcal Polysaccharide PPV23 (Pneumovax) 02/15/2009 Rubella [...] No 11/01/2022 Does the household have a [facility] source of income? (Household - for ages [...] Sushil Naidu RN documented in this encounter Miscellaneous Notes * Telephone Encounter - Shawna Sam OSA - 02/18/2024 4:31 PM EST Please contact pt to schedule MRI in February per PEDRO Francis 02/18/2024 4:31 PM documented in this encounter Plan of Treatment Upcoming Encounters Date Type Department Care Team (Late st Contact Info) Description 02/24/2024 3:30 PM EST Telemedicine Urology [address] [address] Odalys Hand MD [address] [place] [address] 03/21/2024 4:00 PM EST Laboratory Laboratory [address] [place] [phone] [facility] [address] [place] [address] 03/28/2024 2:40 PM EST Office Visit General Internal Medicine [facility] [place] [address] [place] [address] Ishaan Pepe MD [address] [place] [address] 04/07/2024 3:40 PM EST Office Visit Hepatology, [facility] [address] [place] [phone] Kathryn Crespo DO 132 [facility] [place] [address] 06/22/2024 2:00 PM EDT Office Visit Rheumatology, [facility] [address] [place] [address] Omega Galvin PA-C [facility] [place], [place] [address] 09/06/2024 3:40 PM EDT Office Visit Pulmonary Medicine, [facility] 132 [facility] [place] [address] Iker Toney MD [address] [place] [address] 12/15/2024 4:15 PM EDT Imaging Radiology [facility] 132 [facility] [place] [address] Scheduled Procedures Name Priority Associated Diagnoses Date/Ti [...] D LEVEL ONCE IN A LIFETIME-USE SMARTSET# 27039 Completed 06/22/2023, 02/11/2023, 08/20/2022, Additional history exists Lung Cancer Screening Completed 09/11/2023 , 06/15/2022, 04/15/2022, Additional history exists HPV (Gardasil) Vaccine Aged Out No lo nger eligible based on patient's age to complete this topic MENINGOCOCCAL (MENACTRA/MENVEO) Aged Out No longer eligible based on patient's age to complete this topic documented as of this encounter Medical Devices Implanted Type Area Sergeant Of Corrections Device Identifier Shelf Expiration Date Model / Serial / Lot Snehalrode, Lead Kit, 60 Cm Implanted:Qty: 1 on 06/20/2016 by Kirti Devine MD at OR [facility] N/A: Spine Lumbar [employer] 11/21/2017 3186 / [id number] / Octrode, Lead Kit,60 Cm Implanted:Qty: 1 on 06/20/2016 by Kirti Devine MD at OR [facility] N/A: Spine Lumbar [employer] 05/02/2018 [id number] / [id number] / [place] 1192 - [id number] Implanted:Qty: 2 on 06/20/2016 by Kirti Devine MD at OR [facility] Left: Buttocks [employer] 06/27/2017 [id number] / / [id number] Battery Proclaim Elite 5 - [id number] - [id number] Implanted:Qty: 1 on 06/20/2016 by Kirti Devine MD at OR [facility] Left: Buttocks [employer] 05/27/2018 [id number] / [id number] / documented as of this encounter Advance [...] Name Relationship Healthcare Agent Relationshi p Communication [facility] Spouse Health Care Repr esentative (appointed verbally by patient or by statute hierarchy) Care Teams Pottery Kiln Builder Relationship Specialty Start Date End Date Ishaan Pepe MD [address] [facility] [place], [place] [address] PCP - General Internal Medicine 07/18/21 documented as of this encounter
--- OUTSIDE RECORDS SUMMARY | 2024-06-30 07:10 | External Medical Summary ---
Author Name Unknown Address Unknown Organization [id number]:[place] [place] [address] [facility] [address] Laboratory Report Ordering Provider Test Date Status JOSELO SILVA 02/29/2024 15:59:27 Final Observation Date Value Abnormality Reference (Units ) Status Color of Urine by Auto 02/29/2024 15:59:27 Yellow Colorless, Light Yellow, Yellow, Dark Yellow Final Clarity, Urine 02/29/2024 15:59:27 Slightly Cloudy Abnormal Clear Final Glucose [Mass/volume] in Urine by Automated test strip 02/29/2024 15:59:27 Negative Negative (mg/dL) Final Bilirubin.total [Presence] in Urine by Automated test strip 02/29/2024 15:59:27 Negative Negative Final Ketones [Mass/volume] in Urine by Automated test strip 02/29/2024 15:59:27 Negative Negative (mg/dL) Final Specific gravity, Urine 02/29/2024 15:59:27 1.010 1.003-1.030 Final Hemoglobin [Presence] in Urine by Automated test strip 02/29/2024 15:59:27 Small Abnormal Negative Final pH, Urine 02/29/2024 15:59:27 6.0 5.0-7.5 (Units) Final Protein [Mass/volume] in Urine by Automated test strip 02/29/2024 15:59:27 Trace Abnormal Negative (mg/dL) Final Urobilinogen [Mass/volume] in Urine by Automated test strip 02/29/2024 15:59:27 Normal Normal (mg/dL) Final Nitrite [Presence] in Urine by Automated test strip 02/29/2024 15:59:27 Positive Abnormal Negative Final Leukocyte esterase [Presence] in Urine by Automated test strip 02/29/2024 15:59:27 Large Abnormal Negative Final RBC, Urine 02/29/2024 15:59:27 6-9 Abnormal 0-2 (/HPF) Final WBC, Urine 02/29/2024 15:59:27 50+ Abnormal 0-2 (/HPF) Final Bacteria [#/area] in Urine sediment by Microscopy high power field 02/29/2024 15:59:27 >200 Abnormal 0-25 (/HPF) Final Performing Location [facility] [place] [facility] [address] [facility] [address]
--- OUTSIDE RECORDS SUMMARY | 2024-06-30 07:11 | External Medical Summary ---
Author Name Unknown Address Unknown Organization K01:[facility] [place] [address] [place] [address] Laboratory Report Ordering Provider Test Date Status SHIRAJOSELO 01/14/2024 15:14:35 Final Observation Date Value Abnormality Reference (Units) Status Bacteria identified in Specimen by Culture 01/14/2024 15:14:35 No significant growth Final Test: Culture, Urine, Quant itative
Specimen Source: Urine, Clean Catch
Specimen Type: Urine
Specimen Date: 01/14/2024 1514
Result Date: 01/15/2024 1638
Result Status: Final result
Resulting Lab: [facility] [place]
[address]
[facility] [address]

CULTURE

No significant growth

null Performing Location [facility] [place] [address] [facility] [address]
--- OUTSIDE RECORDS SUMMARY | 2024-06-30 07:11 | External Medical Summary | Summary of Care ---
Author Name Unknown Organization [facility] Address [address] [place] [address] Phone [phone] Care Team Providers Care Golf Cart Attendant Name Role Phone Ishaan Pepe MD Primary Care Provider + Reason for Visit * Reason Comments Urinary Tract Infection Symptoms Encounter Details Date Type Department Care Team ([facility] st Contact Info) Description 01/14/2024 3:30 PM EDT Convenient Care Visit [facility] [address] [place] [address] Sander Bland PA-C [address] [place] [address] UTI symptoms* Allergies Active Allergy Reactions Criticality Noted Date Comments Adhesive Tape Rash 01/05/2009 Iodinated Contrast Media Tachypnea 07/02/2022 Povidone-Iodine 10/05/2018 Other reaction(s): . Omeprazole Anaphylaxis High 01/03/2010 Tongue itchy, ear throbbing documented as of this encounter (statuses as of 01/14/2024) Medications Medication Sig Dispensed Refills Start Date End Date Status ProAir HFA 108 (90 Base) MCG/ACT Inhalation Aerosol SolutionIndications :Chest congestion,Acute cough Inhale 2 Puffs by mouth every 4 hours as needed for Wheezing. 18 g 11 2 Active Up4 Probiotics Womens Oral Capsule Take by mouth. A ctive Calcium Citrate 250 MG Oral Tablet Take 2 Tablets by mouth in the morning and 2 Tablets before bedtime. Active Buprenorphine HCl 8 MG Sublingual Tablet Sublingual (Subutex) Place 1 Tablet under the tongue 4 times a day. 90 Tablet 3 Active Vitamin D3 50 MCG (2000 UT) Oral CapsuleIndications: Vitamin D deficiency Take 1 Capsule by mouth in the morning. 90 Capsule 3 3 Active Synthroid 112 MCG Oral TabletIndications:A cquired hypothyroidism Take 1 Tablet by mouth in the morning. (at least 30 min prior to breakfast or other meds). 90 Tablet 3 3 Active Methocarbamol 750 MG Oral Tablet (Robamol) TAKE ONE TABLET BY MOUTH IN THE MORNING AND ONE TABLET AT NOON AND ONE TABLET BEFORE BEDTIME FOR MUSCLE SPASM 180 Tablet 3 4 05/14/19 25 Active Additional Information Patient taking differently: TID PRN, Reported on 01/14/2024 Methenamine Mandelate 0.5 GM Oral Tablet (Mandelamine) Take 2 Tablets by mouth in the morning and 2 Tablets in the evening. 120 Tablet 11 4 Active Additional Information Patient not taking.Reported on 11/10/2023 Estradiol 0.1 MG/GM Vaginal Cream (Estrace) Administer 0.2 g into the vagina once a day on Thursday, Thursday, and Thursday only. Apply periurethrally as directed. 42.5 g 1 4 Active Pantoprazole Sodium 40 MG Oral Tablet Delayed Release (Protonix) Take 1 Tablet by mouth in the morning and 1 Tablet before bedtime. 180 Tablet 3 4 Active Varenicline Tartrate 1 MG Oral Tablet (Chantix)Indication s:Tobacco use TAKE 1 TABLET BY MOUTH TWICE DAILY (MORNING AND BEDTIME) 60 Tablet 4 Active EPINEPHrine 0.3 MG/0.3ML Injection Solution Auto-injector (Autoinjector)Indic ations:Bee sting allergy For a severe reaction: Inject in outer thigh following instructions on package and go to the Emergency room. 6 Each 1 4 Active Apixaban 5 MG Oral Tablet (Eliquis)Indication s:Acute deep vein thrombosis (DVT) of femoral vein of right lower extremity (HCC) take one tablet by mouth in the morning and one tablet before bedtime 180 Tablet 1 4 Active Lactulose 10 GM/15ML Oral Solution (Constulose)Indicat ions:Hepatic encephalopathy (HCC) Take 45 mL by mouth in the morning and 45 mL at noon and 45 mL before bedtime. 946 mL 1 4 Active Additional Information Patient taking differently:30 g OralTID PRN, Reported on 01/14/2024 Furosemide 40 MG Oral Tablet (Lasix)Indications: Liver cirrhosis secondary to nonalcoholic steatohepatitis (SOTOMAYOR) (HCC),Leg edema, right Take 1 pill in the morning daily for edema 4 Active LORazepam 1 MG Oral Tablet (Ativan)Indications :Anxiety Take one hour prior to dental procedure and one hour prior to MRI 1 Tablet 4 Active Ondansetron HCl 8 MG Oral Tablet (Zofran)Indications :Nausea TAKE ONE TABLET BY MOUTH EVERY 8 HOURS NEEDED FOR NAUSEA. 180 Tablet 2 4 Active Mirtazapine 30 MG Oral Tablet (Remeron) TAKE ONE TABLET BY MOUTH AT BEDTIME 90 Tablet 2 4 12/28/19 25 Active Acetaminophen 500 MG Oral Tablet (Tylenol)Indication s:Personal history of fall,Clavicle pain Take by mouth 2 Tablets every 8 hours as needed for Pain, Mild or Pain, Moderate. 100 Tablet 2 01/14/20 Discontinu ed(Medicat ion List Clean Up) Albuterol Sulfate 0.63 MG/3ML Inhalation Nebulization Solution (Accuneb) Inhale 1 Vial via nebulizer every 6 hours as needed for Wheezing or Shortness of Breath. 360 mL 4 01/14/20 Discontinu ed(Medicat ion List Clean Up) Ipratropium [place] 0.02 % Inhalation Solution (Atrovent) Inhale 1 vial via nebulizer every 6 hours as needed for Wheezing. 300 mL 4 01/14/20 24 Discontinu ed(Medicat ion List Clean Up) Sulfamethoxazole-Tr imethoprim 800-160 MG Oral Tablet (Bactrim DS)Indications:Acut e UTI Take 1 Tablet by mouth in the morning and 1 Tablet before bedtime. Do all this for 7 days. Until gone. 14 Tablet 4 01/14/20 Discontinu ed(Medicat ion List Clean Up) Ciprofloxacin HCl 500 MG Oral Tablet (Cipro) Take 1 Tablet by mouth in the morning and 1 Tablet before bedtime. Do all this for 7 days. 14 Tablet 4 01/14/20 Discontinu ed(Medicat ion List Clean Up) Nitrofurantoin Monohyd Macro 100 MG Oral Capsule (Macrobid)Indicatio ns:Recurrent UTI (urinary tract infection),Dysuria Take 1 Capsule by mouth in the morning and 1 Capsule before bedtime. Do all this for 7 days. With food until gone. 14 Capsule 4 01/14/20 Discontinu ed(Medicat ion List Clean Up) Sulfamethoxazole-Tr imethoprim 800-160 MG Oral Tablet (Bactrim DS) Take 1 Tablet by mouth in the morning and 1 Tablet before bedtime. Do all this for 7 days. Until gone. 14 Tablet 4 01/14/20 Discontinu ed(Medicat ion List Clean Up) Fluconazole 150 MG Oral Tablet (Diflucan) Take 1 Tablet by mouth once for 1 dose. 1 Tablet 4 01/14/20 Discontinu ed(Medicat ion List Clean Up) Hospital, Clinic, or Other Facility Administered Medication Ordered Dose Route Frequency Start Date End Date Status vitamin b-12 (Cyanocobalamin) inj 1,000 mcgIndications:Intest inal postoperative nonabsorption 1000 mcg IM [id number] 06/22/2023 05/23/2024 Active vitamin b-12 (Cyanocobalamin) inj 1,000 mcgIndications:S/P gastric bypass 1000 mcg IM [id number] 06/22/2023 01/14/2024 Discontinu ed documented as of this encounter (statuses as of 01/14/2024) Active Problems Problem Noted Date Diagnosed Date [...] DE XA scan 08/20/2022 Recurrent infections 07/30/2022 Overview: Source(s) of Recurrent Infections: UTI and C [...] Gastro-esophageal reflux disease without esophag itis 04/10/2021 Last Assessment & Plan: Continue pantoprazole 40 mg twice daily Opioid dependence, uncomplicated 04/27/2020 Overview: [facility] - takes Subutex (Buprenorphine) Last Assessment & Plan: Chronic Subutex Hx of transient ischemic attack (TIA) 04/03/2020 Liver cirrhosis secondary to nonalcoholic steatohepatitis (SOTOMAYOR) 02/08/2020 Overview: "RED FLAG" ESLD Symptoms: o Altered Mental [...] record review, not a candidate for translant Last Assessment & Plan: Following with Kishore FLORES Has not been [...] disorder 10/28/2017 Mixed hyperlipidemia 12/20/2012 Fibromyalgia 01/05/2009 Last Assessment & Plan: Pain now controlled on Subutex Postlaminectomy syndrome, lumbar 01/05/2009 Thoracic and lumbosacral neuritis 01/05/2009 Acquired hypothyroidism Last Assessment & Plan: Continue synthroid documented as of this encounter (statuses as of 01/14/2024) Resolved Problems Problem Noted Date Diagnosed Date Resolved Date Hyperparathyroidism 09/01/2023 09/01/19 24 Hyperparathyroidism 09/01/2023 09/01/19 24 Physical deconditioning 07/07/2022 05/0 05/2022 Clostridium difficile enteritis 07/07/2022 07/07/2022 COPD, group C, by GOLD 2017 classification 07/07/2022 05/14/2023 Overview: "RED FLAG" COPD symptoms: o Increased dyspnea [...] vein of right lower extremity 05/13/2022 10/10/2022 Last Assessment & Plan: Continue eliquis Subacute pulmonary embolism 05/13/2022 04/06/2023 Overview: Admission 05/13-05/16/22 for acute PE Last Assessment & Plan: Denies any chest pain. Breathing baseline. -continue Eliquis KHANG (acute kidney injury) 05/13/2022 Acute hypokalemia 04/14/2022 07/25/2022 Abdominal ascites 04/14/2022 09/01/2023 Overview: Last paracentesis on 04/15/2022-3.5 L drained Last Assessment & Plan: Continue Lasix and spironolactone. UTI (urinary tract infection) 04/14/2022 07/30/2022 Paroxysmal SVT (supraventricular tachycardia) 11/14/1907/30/2022 Preop examination 08/08/2020 10/10/2020 Well adult exam 08/08/2020 12/06/2021 Overview: 10/18 [facility] stress echo normal EF, no CAD, Gr I [place] Dys. CT chest no PE. 2018 colon 2 mm polyp. Unspecified mood (affective) disorder 04/17/2020 04/17/2020 Severe protein-calorie malnutrition 04/03/2020 04/06/2023 TIA (transient ischemic attack) 02/10/2020 04/03/2020 Protein-calorie malnutrition 02/10/2020 04/17/2020 Impaired fasting glucose 01/02/2020 Stroke-like symptoms 05/17/2019 020 COPD exacerbation 03/07/2019 07/25/2022 Overview: Per COPD GOLD Classification Last Assessment & Plan: COPD "RED FLAG" COPD symptoms: o Increased [...] 05/04/2015 09/01/2023 Nocturnal hypoxemia 06/09/2013 08/10/19 22 Overview: 2 LPM Noct ox on 2 LPM -- <89% 16 seconds, low 83%, mean 96%, MARYAM 0.1 AHP COPD, severity to be determined 06/18/2011 09/08/2018 Overview: Per COPD GOLD Classification Hyperlipidemia with target LDL less than 100 2 07/12/2013 Overview: ICD-10 update of inactive term BMI 36.0-36.9,adult 09/02/2010 06/18/19 19 Recurrent major depressive d isorder, in partial remission 01/03/2010 01/20/2022 Tobacco use disorder 02/15/2009 013 MEDICATION USE AGREEMENT 01/23/200905/2022 Postartificial menopausal syndrome 05/18/2008 12/06/2021 Type 2 diabetes mellitus wit h hemoglobin A1c goal of less than 7.0% 01/02/2020 Overview: ICD-10 update of inactive term documented as of this encounter (statuses as of 01/14/2024) Immunizations Name Administration Dates Next Due DT - Diptheria/Tetanus (PEDS) 11/14/1985 ,06/30/1972,05/25/1968,04/20,02/26/1968 Hepatitis B, 20+ yrs 02/06/2014,09/06/2013,08/09 MMR-LUKE - Measles/Mumps/Rubella/Varicella Vaccine 10/13/1972 OPV - Polio Virus Vaccine (Oral) 973,05/25/1968,04/20/1968,02/25 Pneumococcal Conjugate Vacci ne, 20-valent ([id number]) 12/06/2021 Pneumococcal Polysaccharide PPV23 (Pneumovax) 02/15/2009 Rubella [...] Tobacco: Never Tobacco Cessation:Ready to Q uit: No; Counseling Given: No Alcohol Use Standard Drinks/Week [...] ages 0-17 years) Not on file 11/01/2022 Sex and Gender Information Value Date Recorded Sex Assigned at Female 09/21/2018 1:05 PM EDT Gender Identity Female 09/21/2018 1:05 PM EDT Sexual Orientation Straight 09/21/2018 1: 05 PM EDT Job Start Date Occupation Industry Not on file Not on file Not on file documented as of this encounter Last Filed Vital Signs Vital Sign Reading Time Taken Comments Blood Pressure 128/96 01/14/2024 3:00 PM EDT Pulse 70 01/14/2024 3:00 PM EDT Temperature 36.2 °C (97.2 °F) 01/14/2024 3:00 PM ED T Respiratory Rate - - Oxygen Saturation 97% 01/14/2024 3:00 PM EDT Inhaled Oxygen Concentration - - Weight 64 kg (141 lb) 01/14/2024 3:00 PM EDT Height - - Body Mass Index 24.98 09/07/2023 3:43 PM EDT documented in this encounter Functional Status Functional Status Response Date of Assess ment Are you deaf or do you have serious difficulty h earing? No 06/12/2022 Are you blind or do you have serious difficulty seeing, even when wearing glasses? No 06/12/2022 Do you have serious difficul ty walking or climbing stairs? (5 years old or older) Yes 07/04/2022 Do you have difficulty dress ing or bathing? (5 years old or older) Yes 06/12/2022 Because of a physical, menta l, or emotional condition, do you have difficulty doing errands alone such as visiting a doctor s office or shopping? (15 years old or older) No 06/13/19 23 Cognitive Status Response Date of Assessm ent Because of a physical, menta l, or emotional condition, do you have serious difficulty concentrating, remembering, or making decisions? (5 years old or older) No 06/12/2022 documented as of this encounter Progress Notes * Sander Bland PA-C - 01/14/2024 3:13 PM EDT Convenient Care Basic Exam Arely Hester is a 58 year old year old female who presents for evaluation of Dysuria, Hematuria since 01/07/24 Review of Systems Constitutional: Negative. HENT: Negative. Eyes: Negative. Respiratory: Negative. Cardiovascular: Negative. Gastrointestinal: Negative. Endocrine: Negative. Genitourinary: Positive for dysuria and hematuria. Musculoskeletal: Negative. Skin: Negative. Allergic/Immunologic: Negative. Neurological: [...] performed by Alice Cotton MD at [facility] COLONOSCOPY, DIAGNOSTIC (RECTUM) 06/29/2018 poor prep, repeat / COLONOSCOPY FLEXIBLE PROXIMAL DIAGNOSTIC performed by Alice Cotton MD at [facility] COLONOSCOPY, DIAGNOSTIC (RECTUM) 06/30/2018 biopsies show hyperplastic polyps/COLONOSCOPY FLEXIBLE PROXIMAL DIAGNOSTIC performed by Deandra Caballero MD at [facility] COLONOSCOPY, DIAGNOSTIC (RECTUM) N/A 11/24/2022 hemorrhoids/recall 5 years/COLONOSCOPY FLEXIBLE PROXIMAL DIAGNOSTIC performed by Mark Baptiste DO at OR [facility] EGD, FLEXIBLE, DIAGNOSTIC 05/14/2017 erosive gastropathy, duodenitis/ESOPHAGOGASTRODUODENOSCOPY (EGD), FLEXIBLE, TRANSORAL, DIAGNOSTIC performed by Alice Cotton MD at [facility] EGD, FLEXIBLE, DIAGNOSTIC 08/21/2017 mild gastritis/ESOPHAGOGASTRODUODENOSCOPY (EGD), FLEXIBLE, TRANSORAL, DIAGNOSTIC performed by Alice Cotton MD at [facility] EGD, FLEXIBLE, DIAGNOSTIC N/A 04/28/2018 ESOPHAGOGASTRODUODENOSCOPY (EGD), FLEXIBLE, TRANSORAL, DIAGNOSTIC [facility] EGD, FLEXIBLE, DIAGNOSTIC 06/29/2018 GJ inflammation & severe stenosis, repeat 2 wks/ESOPHAGOGASTRODUODENOSCOPY (EGD), FLEXIBLE, TRANSORAL, DIAGNOSTIC performed by Alice Cotton MD at [facility] EGD, FLEXIBLE, DIAGNOSTIC 07/14/2018 anastomotic stenosis, repeat 2 wks/ESOPHAGOGASTRODUODENOSCOPY (EGD), FLEXIBLE, TRANSORAL, DIAGNOSTIC performed by Alice Cotton MD at [facility] EGD, FLEXIBLE, DIAGNOSTIC 07/28/2018 normal/ESOPHAGOGASTRODUODENOSCOPY (EGD), FLEXIBLE, TRANSORAL, DIAGNOSTIC performed by Alice Cotton MD at [facility] EGD, FLEXIBLE, DIAGNOSTIC 10/21/2018 normal bx/ESOPHAGOGASTRODUODENOSCOPY (EGD), FLEXIBLE, TRANSORAL, DIAGNOSTIC performed by Deandra Caballero MD at [facility] EGD, FLEXIBLE, DIAGNOSTIC N/A 05/13/2019 ESOPHAGOGASTRODUODENOSCOPY (EGD), FLEXIBLE, TRANSORAL, DIAGNOSTIC performed by Filiberto Haile [facility] ENDOSCOPY [facility] EGD, FLEXIBLE, DIAGNOSTIC 01/27/2020 gastritis / ESOPHAGOGASTRODUODENOSCOPY (EGD), FLEXIBLE, TRANSORAL, DIAGNOSTIC performed by Deandra Caballero MD at [facility] EGD, FLEXIBLE, DIAGNOSTIC 07/18/2021 normal / ESOPHAGOGASTRODUODENOSCOPY (EGD), FLEXIBLE, TRANSORAL, DIAGNOSTIC performed by Nikko Martino MD at [facility] EGD, FLEXIBLE, DIAGNOSTIC N/A 11/24/2022 normal/ESOPHAGOGASTRODUODENOSCOPY (EGD), FLEXIBLE, TRANSORAL, DIAGNOSTIC performed by Mark Baptiste DO at OR [facility] EGD, FLEXIBLE, TRANSENDOSCOPIC DILATION <30MM N/A 07/07/2018 ESOPHAGOGASTRODUODENOSCOPY (EGD), FLEXIBLE, TRANSORAL, BALLOON DILATION LESS THAN 30MM performed byJose E Callahan MD at [facility] EGD, FLEXIBLE,W/ENDOSCOPIC US 09/05/2016 fatty liver, gastric & duodenal ulcers, normal bx, repeat EGD 2 mo/[facility] EVAL NEUROSTIM PULSE GEN, W/ REPROGRAM N/A 04/18/2016 NEUROSTIMULATOR PULSE GENERATOR/ TRANSMITTER, WITH INTRAOPERATIVE OR SUBSEQUENT PROGRAMMING performed by Kirti Devine MD at OR [facility] EVAL NEUROSTIM PULSE GEN, W/ REPROGRAM N/A 06/20/2016 NEUROSTIMULATOR PULSE GENERATOR/ TRANSMITTER, WITH INTRAOPERATIVE OR SUBSEQUENT PROGRAMMING performed by Kirti Devine MD at OR [facility] IMPLANT EPIDURAL NEUROELECTRODES N/A 04/18/2016 PERCUTANEOUS IMPLANTATION NEUROSTIMULATOR EPIDURAL performed by Kirti Devine MD at OR [facility] IMPLANT EPIDURAL NEUROELECTRODES N/A 06/20/2016 PERCUTANEOUS IMPLANTATION NEUROSTIMULATOR EPIDURAL performed by Kirti Devine MD at OR [facility] IMPLANT SPINAL NEURORECEIVER N/A 06/20/2016 INSERTION OR REPLACEMENT SPINAL NEUROSTIMULATOR GENERATOR performed by Kirti Devine MD at OR [facility] IMPLANT SPINAL NEURORECEIVER Left 08/09/2020 INSERTION OR REPLACEMENT SPINAL NEUROSTIMULATOR GENERATOR performed by Victor Manuel Scott MD at OR [facility] INFORMATION breast surgery x2 INFORMATION back surgery x2 LAPAROSCOPE PROCEDURE, LIVER N/A 04/28/2018 UNLISTED LAPAROSCOPIC PROCEDURE LIVER performed by Jose E Callahan MD at OR [facility] LAPAROSCOPIC GASTRIC BYPASS/BAKARI-EN-Y N/A 04/28/2018 LAPAROSCOPIC GASTRIC RESTRICTIVE BYPASS BAKARI EN Y performed by Jose E Callahan MD at OR [facility] LUMBAR HEMILAMINECTOMY L4-5 in and L3-4 in [...] vein thrombosis (DVT) of right peroneal vein ([facility]) High risk for fracture due to osteoporosis by DEXA scan Other ascites Iron deficiency anemia secondary to inadequate dietary iron intake Paroxysmal SVT (supraventricular tachycardia) ([facility]) COPD, group D, by GOLD 2017 classification ([facility]) Mild mitral regurgitation History of pulmonary embolism Type 2 diabetes mellitus without complication (HCC) Hyperparathyroidism ([facility]) Review of patient's allergies indicates: Allergen Reactions [...] 90 Tablet 0 Vitamin D3 50 MCG (2000 UT) Oral Capsule Take 1 Capsule by [...] BY MOUTH AT BEDTIME 90 Tablet 2 Methocarbamol 750 MG Oral Tablet (Robamol) TAKE [...] the evening. (Patient not taking: Reported on 11/10/2023) 120 Tablet 11 Current Facility-Administered Medications Medication Dose Route Frequency Provider Last Rate Last Admin vitamin b-12 (Cyanocobalamin) inj 1,000 mcg 1,000 mcg Intramuscular Q4 Weeks Rosalina Velazquez PA-C 1,000 mcg at 11/10/23 1220 Nursing Notes and Vital Signs reviewed. BP 128/96 (BP Site: Left Arm, BP Position: Sitting, BP Cuff Size: Regular) Comment (BP Cuff Size): small adult cuff | Pulse 70 | Temp 36.2 °C (97.2 °F) (Tympanic) | Wt 64 kg (141 lb) | SpO2 97% | BMI 24.98 kg/m² | BSA 1.69 m² Physical Exam Constitutional: Appearance: Normal appearance. She is normal weight. Cardiovascular: Rate and Rhythm: Normal rate and regular rhythm. Pulses: Normal pulses. Heart sounds: Normal heart sounds. Pulmonary: Effort: Pulmonary effort is normal. Breath sounds: Normal breath sounds. Abdominal: General: Abdomen is flat. Bowel sounds are normal. Palpations: Abdomen is soft. Tenderness: There is no right CVA tenderness or [...] Thought content normal. Judgment: Judgment normal. ASSESSMENT: UTI symptoms (Primary) - URINALYSIS, POINT OF CARE Neg WBC, Blood - CULTURE, URINE, QUANTITATIVE - Increase PO Fluids - Pending Cx Follow Up: Return if symptoms worsen or fail to improve, for Clinic Visit. | For: Clinic Visit Sadner Bland PA-C [address] [address] * Veronica Painting LPN - 01/14/2024 3:00 PM EDT Patient spelled last name and verbalized birthdate to verify identity. Nursing Notes: CC: Chief Complaint Patient presents with Urinary Tract Infection Symptoms Brief Hx: patient reports urinary burning and hematuria Duration/Onset: 01/07/2024 OTC meds: none Accompanied by: none documented in this encounter Plan of Treatment Upcoming Encounters Date Type Department Care Team ([facility] st Contact Info) Description 02/03/2024 11:45 AM EST Telemedicine Urology [address] [address] Odalys Hand MD [address] [place] [address] 03/21/2024 4:00 PM EST Laboratory Laboratory [facility] [address] [facility] [place] [id number] [address] [place] [address] 03/28/2024 2:40 PM EST Office Visit General Internal Medicine [facility] [address] [facility] [place] [address] Ishaan Pepe MD [address] [facility] [place] [address] 04/07/2024 3:40 PM EST Office Visit Hepatology, Evon Zap[facility] [place] [address] [place] [phone] Kathryn Crespo DO [address] [place] [address] 06/22/2024 2:00 PM EDT [facility] [address] [place] [address] Omega Galvin PA-C [address] [place] [address] 09/06/2024 3:40 PM EDT Office Visit Pulmonary Medicine, [facility] [address] [facility] [place] [address] Iker Toney MD [address] [place] [address] 12/15/2024 4:15 PM EDT Imaging Radiology [facility] [address] [facility] [place] [address] Pending Results Name Type Priority Associated Diagnoses Date /Time CULTURE, URINE, QUANTITATIVE Lab Routine UTI symptoms 01/14/2024 3:14 PM EDT Scheduled Procedures Name Priority Associated Diagnoses Date/Ti me COLONOSCOPY FLEXIBLE PROXIMA L DIAGNOSTIC Recall History of colonic polyps Health Maintenance Due Date Last Done Comments Cologuard 12/24/2012 Sigmoidoscopy 12/24/2012 *ADVANCE DIRECTIVE NOT ON FILE 03/12/2019 Diabetic Foot Exam 11/15/2020 11/16/2019, 0 09/21/2018, 08/06/2017, Additional history exists DISCUSS TOBACCO CESSATION (REFER TO SMARTSET #[id number]) 06/25/2023 06/24/2022, 05/27/2022, 05/19/2022, Additional history exists [...] D LEVEL ONCE IN A LIFETIME-USE SMARTSET# 50105 Completed 06/22/2023, 02/11/2023, 08/20/2022, Additional history exists Lung Cancer Screening Completed 09/11/2023 , 06/15/2022, 04/15/2022, Additional history exists HPV (Gardasil) Vaccine Aged Out No lo nger eligible based on patient's age to complete this topic MENINGOCOCCAL (MENACTRA/MENVEO) Aged Out No longer eligible based on patient's age to complete this topic documented as of this encounter Medical Devices Implanted Type Area Pole Framer Device Identifier Shelf Expiration Date Model / Serial / Lot Octrode, Lead Kit, 60 Cm Implanted:Qty: 1 on 06/20/2016 by Kirti Devine MD at OR [facility] N/A: Spine Lumbar [employer] 11/21/2017 [id number] / [id number] / Octrode, Lead Kit,60 Cm Implanted:Qty: 1 on 06/20/2016 by Kirti Devine MD at OR [facility] N/A: Spine Lumbar [employer] 05/02/2018 [id number] / [id number] / [place] 1192 - [id number] Implanted:Qty: 2 on 06/20/2016 by Kirti Devine MD at OR [facility] Left: Buttocks [employer] 06/27/2017 [id number] / / [id number] Battery [employer] Elite 5 - [id number] - [id number] Implanted:Qty: 1 on 06/20/2016 by Kirti Devine MD at OR [facility] Left: Buttocks [employer] 05/27/2018 [id number] / [id number] / documented as of this encounter Procedures Procedure Name Priority Date/Time Associated Diagnosis Comments URINALYSIS, POINT OF CARE (ENTER/EDIT) Routine 01/14/2024 3:16 PM EDT UTI symptoms documented in this encounter Results * URINALYSIS, POINT OF CARE (ENTER/EDIT) (01/14/2024 3:16 PM EDT) Color, Urine Yellow Yellow or Light Yellow Clarity, Urine Clear Clear Glucose, Urine Negative Negative mg/dL Bilirubin, Urine Negative Negative Ketone, Urine Negative Negative mg/dL Specific [place], Urine 1.010 1.003 - 1.030 Blood, Urine Negative Negative pH, Urine 5.5 5.0 - 7.5 units Protein, Urine Negative Negative mg/dL Urobilinogen, Urine 1.0 0.2 - 1.0 mg/dL Nitrite, Urine Negative Negative Esterase, Urine Negative Negative Urine 01/14/2024 3:16 PM EDT Sander Bland PA-C LAB POINT OF CARE TE ST ENTER/EDIT ORDERABLES documented in this encounter Visit Diagnoses Diagnosis UTI symptoms- Primary Other symptoms involving urinary system Screening mammogram for breast cancer documented in [...] Relationship Healthcare Agent Relationshi p Communication Jemal [place] Spouse Health Care Repr esentative (appointed verbally by patient or by statute hierarchy) Care Teams Golf Cart Attendant Relationship Specialty Start Date End Date Ishaan Pepe MD [address] [facility] [place] [address] PCP - General Internal Medicine 07/18/21 documented as of this encounter
[2024-06-30 07:51] LABS: Estimated Average Glucose 128 mg/dl; Hemoglobin A1C 6.1 % (4.5-5.6)
[2024-06-30] MEDS: ASPIRIN 81 MG ECTAB PO SCH (07:57)
[2024-06-30] MEDS: ADVANCED PROBIOTIC 625 MG CAPSULE PO SCH (07:57)
[2024-06-30] MEDS: PANTOprazole 40 MG TAB PO SCH (07:57)
[2024-06-30] MEDS: SENNA 8.6 MG TAB PO SCH (07:57)
[2024-06-30] MEDS: SENNA 8.6 MG TAB PO ONE (07:58)
[2024-06-30] MEDS: INSULIN ASPART PER UNIT CHARGE SC SCH (08:59)
--- NOTE | 2024-06-30 09:16 | Pharmacy Report ---
- Date of Service June 30, 2024 - Pharmacy CVA/TIA Medication Review Medications to Prevent Stroke handout has been added to the patients discharge packet. Antiplatelet(s) * Aspirin 81 mg daily Cholesterol * High intensity statin: atorvastatin 40 mg daily DVT Prophylaxis * Eliquis 2.5 mg BID Therapeutic Anticoagulation * No history of Afib/Aflutter noted Type 2 Diabetes * Patient does not have T2DM
--- NOTE | 2024-06-30 09:53 | Electrocardiogram Report ---
Test Reason : Blood Pressure : */* mmHG Vent. Rate : 73 BPM Atrial Rate : 73 BPM P-R Int : 174 ms QRS Dur : 68 ms QT Int : 384 ms P-R-T Axes : 61 26 62 degrees QTcB Int : 423 ms Normal sinus rhythm Poor R wave progression, consider anterior MO vs. lead placement vs. LVH Abnormal ECG When compared with ECG of 27-Oct-2022 14:13, No significant change was found Confirmed by Gildardo Carr ([id number]) on 06/30/2024 9:53:22 AM Referred By: Ishaan Pepe Confirmed By: Gildardo Carr
[2024-06-30] MEDS: ACETAMINOPHEN 500 MG TAB PO PRN (11:23)
[2024-06-30 11:49] VITALS: TEMP 98.1; O2SAT 98
[2024-06-30] MEDS: LACTULOSE SYRUP 20 GM/30 ML UDC PO ONE (12:34)
--- OUTSIDE RECORDS SUMMARY | 2024-06-30 13:20 | External Medical Summary | Summary of Care ---
Author Name Unknown Organization [facility] Address [address] [place] [address] Phone [phone] Care Team Providers Care Bologna Maker Name Role Phone Ishaan Pepe MD Primary Care Provider + Reason for Visit * Reason Onset Date Comments Information 06/29/2024 Encounter Details Date Type Department Care Team ([facility] st Contact Info) Description 06/29/2024 Telephone General Internal Medicine [facility] [address] [place] [address] Ishaan Pepe MD [address] [place] [address] Information Allergies Active Allergy Reactions Criticality Noted Date Comments Adhesive Tape Rash 01/05/2009 Iodinated Contrast Media Tachypnea 07/02/2022 Povidone-Iodine 10/05/2018 Other reaction(s): . Omeprazole Anaphylaxis High 01/03/2010 Tongue itchy, ear throbbing documented as of this encounter (statuses as of 06/30/2024) Medications Buprenorphine HCl 8 MG Sublingual Tablet Sublingual (Subutex) Place 1 Tablet under the tongue 4 times a day. 90 Tablet 06/03/19 23 Active Pantoprazole Sodium 40 MG Oral Tablet Delayed Release (Protonix) Take 1 Tablet by mouth in the morning and 1 Tablet before bedtime. 180 Tablet 3 5 6:21 PM EST 07/28/19 24 Active Additional Information Patient taking differently:40 mg OralDaily(Non-Specified), Reported on 06/29/2024 EPINEPHrine 0.3 MG/0.3ML Injection Solution Auto-injector (Autoinjector)Indic ations:Bee sting allergy For a severe reaction: Inject in outer thigh following instructions on package and go to the Emergency room. 6 Each 1 4 5:20 PM EDT 09/02/19 24 Active Lactulose 10 GM/15ML Oral Solution (Constulose)Indicat ions:Hepatic encephalopathy (HCC) Take 45 mL by mouth in the morning and 45 mL at noon and 45 mL before bedtime. 946 mL 1 11/06/19 24 Active Additional Information Patient taking differently:30 g OralTID PRN, Reported on 06/29/2024 Furosemide 40 MG Oral Tablet (Lasix)Indications: Liver cirrhosis secondary to nonalcoholic steatohepatitis (SOTOMAYOR) (HCC),Leg edema, right Take 1 pill in the morning daily as needed for edema 11/10/19 24 Active Mirtazapine 30 MG Oral Tablet (Remeron) TAKE ONE TABLET BY MOUTH AT BEDTIME 90 Tablet 2 5 11:27 AM EDT 12/28/19 24 025 Active Varenicline Tartrate 1 MG Oral Tablet (Chantix)Indication s:Tobacco use Take 1 Tablet by mouth in the morning and 1 Tablet before bedtime. 60 Tablet 03/08/20 24 Active Vitamin A 3 MG (38210 UT) Oral Capsule (Aquasol-A) Take 1 Capsule by mouth in the morning. 03/18/20 24 Active ProAir HFA 108 (90 Base) MCG/ACT Inhalation Aerosol SolutionIndications :Chest congestion,Acute cough Inhale 2 Puffs by mouth every 4 hours as needed for Wheezing. 18 g 11 04/04/19 25 Active Synthroid 112 MCG Oral TabletIndications:A cquired hypothyroidism Take 1 Tablet by mouth in the morning. (at least 30 min prior to breakfast or other meds). 90 Tablet 3 04/21/19 25 Active Apixaban 2.5 MG Oral Tablet (Eliquis) Take 1 Tablet by mouth in the morning and 1 Tablet before bedtime. 60 Tablet 1 05/19/19 25 Active Ondansetron HCl 8 MG Oral Tablet (Zofran)Indications :Nausea TAKE ONE TABLET BY MOUTH EVERY 8 HOURS NEEDED FOR NAUSEA. 180 Tablet 2 5 4:36 PM EDT 06/25/19 25 Active Vitamin D3 25 MCG (1000 UT) Oral Tablet (Vitamin D3)Indications:Othe r osteoporosis without current pathological fracture,Vitamin D deficiency Take 3 Tablets by mouth in the morning. 180 Tablet 3 06/25/19 25 Active Aspirin 81 MG Oral Tablet Delayed Release Take 1 Tablet by mouth in the morning. Active Hospital, Clinic, or Other Facility Administered Medication Ordered Dose Route Frequency Start Date End Date Status Vitamin B-12 (Cyanocobalamin) inj 1,000 mcgIndications:Vitamin B12 deficiency 1000 mcg IM [id number] 06/29/2024 05/31/2025 Active documented as of this encounter (statuses as of 06/30/2024) Active Problems Problem Noted Date Diagnosed Date Opioid dependence in remission 06/29/2024 Major depressive disorder, single episode, mild 06/29/2024 Chronic pulmonary embolism 06/29/2024 Mild mitral regurgitation 09/01/2023 History of pulmonary [...] dependence, uncomplicated 04/27/2020 Overview (07/30/2022): [facility] [...] (06/02/2022 12:21 PM EST): Following with Kishore Fabricio MARK Has not been taking lactulose due to [...] as of this encounter (statuses as of 06/30/2024) Resolved Problems Problem Noted Date Diagnosed Date [...] adult exam 08/08/2020 12/06/2021 Overview (10/22/2021): 10/18 [facility] stress echo normal EF, no CAD, Gr [...] as of this encounter (statuses as of 06/30/2024) Immunizations Name Administration Dates Next Due DT - Diptheria/Tetanus (PEDS) 11/14/1985 ,06/30/1972,05/25/1968,04/20,02/26/1968 Hepatitis B, 20+ yrs 02/06/2014,09/06/2013,08/09 MMR-LUKE - Measles/Mumps/Rubella/Varicella Vaccine 10/13/1972 OPV - Polio Virus Vaccine (Oral) 973,05/25/1968,04/20/1968,02/25 Pneumococcal Conjugate Vacci ne, 20-valent ([id number]) 12/06/2021 Pneumococcal Polysaccharide PPV23 (Pneumovax) 02/15/2009 Rubella [...] encounter Miscellaneous Notes * Telephone Encounter - Дмитрий Puente RN - 06/29/2024 5:54 PM EDT Office visit note from today 06/29/2024 faxed to [facility] at [phone] with confirmation. documented in this encounter Plan of Treatment Upcoming Encounters Date Type Department Care Team (Late st Contact Info) Description 07/19/2024 9:00 AM EDT Office Visit [facility] [address] [address] Wilfred Reddy MD [address] [place] [address] Carmen Bridges [address] [place] [address] Photographer Yuliana [address] [address] 07/26/2024 2:30 PM EDT Office Visit Gastroenterology, [facility] [address] [place] [phone] Kishore Regalado CRNP [address] [place] [address] 08/04/2024 3:40 PM EDT Office Visit Neurology [facility] [address] [facility] [place] [address] Violette Marshall MD [address] [facility] [address] [place] [address] 09/06/2024 3:30 PM EDT Office Visit Pulmonary Medicine, [facility] [address] [place] [phone] I[facility] Toney [facility] [address] [facility] [address] 09/27/2024 2:00 PM EDT Office Visit General Internal Medicine [facility] [address] [facility] [place] [address] Ishaan Pepe MD [address] [facility] [place] [address] 10/25/2024 2:40 PM EDT Office Visit Hepatology, [facility] [address] [place] [phone] Kathryn Crespo DO [address] [place] [address] 12/15/2024 4:15 PM EDT Imaging Radiology [facility] [address] [place] [phone] 06/28/2025 2:30 PM EDT Office Visit Rheumatology, [facility] [address] [place], [place] [phone] Omega Galvin PADebbyC [address] [place] [address] [place], [place] [address] Scheduled Procedures Name Priority Associated Diagnoses Date/Ti me COLONOSCOPY FLEXIBLE PROXIMA L DIAGNOSTIC Recall History of colonic polyps Health Maintenance Due Date Last Done Comments Cologuard 12/24/2012 Sigmoidoscopy 12/24/2012 *ADVANCE DIRECTIVE NOT ON FILE 03/12/2019 Diabetic Foot Exam 11/15/2020 11/16/2019, 0 09/21/2018, 08/06/2017, Additional history exists DISCUSS TOBACCO CESSATION (REFER TO SMARTSET #9701) 06/25/2023 06/24/2022, 05/27/2022, 05/19/2022, Additional history exists Fecal Occult Blood Test 11/20/2023 11/20/19, 11/19/2022, 11/19/2022 COVID-19 Vaccine ( season) 2023 Depression Monitoring 03/10/2024 03/10/2023 DXA Scan 06/03/2024 06/03/2022, 06/03/2022 [...] D LEVEL ONCE IN A LIFETIME-USE SMARTSET# 88505 Completed 06/21/2024, 06/22/2023, 02/11/2023, Additional history exists [...] this encounter Medical Devices Implanted Type Area Salesperson Parts Device Identifier Shelf Expiration Date Model / Serial / Lot Neurostimulat or-Battery [employer] Mobile Elite [id number] Implanted:Qty : 1 on 06/20/2016 by Kirti Devine MD at [facility] Neurostimulator Left: Buttocks [employer] 05/27/2018 [id number] / [id number] / Description:[email or web address] [facility] 06/24/2024 PLEASE REVIEW PAGE 12 FOR ADDITIONAL INFORMATION BEFORE SCANNING -IPG in upper buttock, low back, flank, abdomen, or midline -Lead tip in the epidural space between the C1 and S2 vertebrae MRI system type: 1.5 T cylindrical bore magnet, horizontal field orientation WARNING: Only use 1.5 T cylindrical bore magnet, horizontal field orientation MRI systems. Other MRI systems, such as 1.0 T and 3.0 T machines or vertical field orientation machines, have not been tested and could cause device damage and excessive heating of implanted components, which could result in serious patient injury. Gradient slew rate: Maximum gradient slew rate of less than or equal to 200 T/m/s per axis WARNING: Do not use gradient slew rates greater than 200 T/m/s because they have not been tested and could increase the risk of induced stimulation or heating of the neurostimulator. Spatial field gradient: Maximum spatial field gradient of 30 T/m (3000 G/cm) Patient position Supine, patient's arms must be at his or her sides WARNING: Any prone patient positions or superman positions (where the patient s arm is raised above his or her head) are excluded and have not been tested. Total active scan time (RF on time) -30 minutes total of active scan time per session -30 minute wait between sessions WARNING: Exceeding the active scan time limit increases the risk of excessive heating, which could result in serious patient injury. NOTE: During the MRI scan, visually and audibly Octrode, Lead Kit, 60 Cm Implanted:Qty : 1 on 06/20/2016 by Kirti Devine MD at [facility] N/A: Spine Lumbar [employer] 11/21/2017 [id number] / [id number] / Octrode, Lead Kit,60 Cm Implanted:Qty : 1 on 06/20/2016 by Kirti Devine MD at [facility] N/A: Spine Lumbar [employer] 05/02/2018 [id number] / [id number] / [place] 1192 - [id number] Implanted:Qty : 2 on 06/20/2016 by Kirti Devine MD at [facility] Left: Buttocks [employer] 06/27/2017 [id number] / / [id number] documented as of this encounter Advance Directives [...] Name Relationship Healthcare Agent Relationshi p Communication [facility] Spouse Health Care Repr esentative (appointed verbally by patient or by statute hierarchy) Care Teams Bologna Maker Relationship Specialty Start Date End Date Ishaan Pepe MD [address] [place] [address] PCP - General Internal Medicine 07/18/21 documented as of this encounter
--- OUTSIDE RECORDS SUMMARY | 2024-06-30 13:21 | External Medical Summary | Summary of Care ---
Author Name Unknown Organization [facility] Address [address] [place] [address] Phone [phone] Care Team Providers Care Trial Manager Name Role Phone Ishaan Pepe MD Primary Care Provider + Reason for Visit * Reason Comments Emergency Department Follow-Up Visual di sturbance and headache - states she is not getting visual disturbances like she was; states she has a headache and pain up left side of neck; states she doesn't feel good - has pain to left side of chest * Precert (Within 10 days (routine)) - Authorized Specialty Diagnoses / Procedures Referred By Contac t Referred To Contact Radiology Diagnoses Visual distortions of shape and size Procedures MRA HEAD WO CONTRAST Mike Monreal, DO [address] [place] [address] Phone: tel: fax: Referral ID Status Reason Start Date Expiration Date V isits Requested Visits Authorized [id number] Authorized Precert 06/22/2024 12/19/2024 [id number] Encounter Details Date Type Department Care Team (Latest Contact Info) Description 06/29/2024 5:20 PM EDT Office Visit General Internal Medicine State Kristal Mcclellan [address] [place], [place] [phone] Ishaan Pepe MD [address] [facility] [address] Visual disturbance*; Confusion; Decreased hemoglobin; Abnormal MRI; Hand numbness; Opioid dependence in remission (HCC); Chronic deep vein thrombosis (DVT) of right peroneal vein (HCC); Major depressive disorder, single episode, mild (HCC); Intestinal postoperative nonabsorption; Acquired hypothyroidism; Chronic pulmonary embolism, unspecified pulmonary embolism type, unspecified whether acute cor pulmonale present (HCC); Vitamin B12 deficiency Allergies Active Allergy Reactions Criticality Noted Date [...] 06/29/2024 EPINEPHrine 0.3 MG/0.3ML Injection Solution Auto-injector (Autoinjector)Marlene [...] on 06/29/2024 Furosemide 40 MG Oral Tablet (Lasix)Indications :Liver [...] 03/08/20 24 Active Vitamin A 3 MG (78136 UT) Oral Capsule (Aquasol-A) Take 1 Capsule [...] 25 MCG (1000 UT) Oral Tablet (Vitamin D3)Indications:Oth er osteoporosis without current pathological fracture,Vitamin D deficiency Take 3 Tablets by mouth in the morning. 180 Tablet 3 06/25/19 25 Active Aspirin 81 MG Oral Tablet Delayed Release Take 1 Tablet by mouth in the morning. Active Up4 Probiotics Womens Oral Capsule Take by mouth. 2024 Disconti nued(Pat ient preferen ce/disco ntinuati on) Estradiol 0.1 MG/GM Vaginal Cream (Estrace) Administer 0.2 g into the vagina once a day on Thursday, Thursday, and Thursday only. Apply periurethrally as directed. 42.5 g 1 07/22/19 24 2024 Disconti nued(Pat ient preferen ce/disco ntinuati on) Nitrofurantoin Monohyd Macro 100 MG Oral Capsule (Macrobid)Indicati ons:Acute UTI Take 1 Capsule by mouth in the morning and 1 Capsule before bedtime. Do all this for 7 days. With food until gone. 14 Capsule 04/24/19 25 2024 Disconti nued(Pat ient preferen ce/disco ntinuati on) LORazepam 1 MG Oral Tablet (Ativan)Indication s:Anxiety Take one hour prior to MRI 1 Tablet 06/23/19 25 2024 Disconti nued(Med ication List Clean Up) Hospital, Clinic, or Other Facility Administered Medication Ordered Dose Route Frequency Start Date End Date Status Vitamin B-12 (Cyanocobalamin) inj 1,000 mcgIndications:Vitamin B12 deficiency 1000 mcg IM [id number] 06/29/2024 05/31/2025 Active documented as of this [...] dependence, uncomplicated 04/27/2020 Overview (07/30/2022): [facility] - takes Subutex (Buprenorphine) [...] Plan (06/02/2022 12:21 PM EST): Following with Kishroe Fabricio MARK Has not been taking lactulose [...] exam 08/08/2020 12/06/2021 Overview (10/22/2021): 10/18 [facility] stress echo normal EF, no [...] (Oral) 973,05/25/1968,04/20/1968,02/25 Pneumococcal Conjugate Vacci ne, 20-valent ([id number]) 12/06/2021 Pneumococcal Polysaccharide PPV23 (Pneumovax) 02/15/2009 Rubella [...] to Q uit: Yes; Counseling Given: No Comments:04/04/24-Smoking 5-6 cigarettes/day Alcohol Use Standard Drinks/Week [...] Sign Reading Time Taken Comments Blood Pressure 124/72 06/29/2024 4:48 PM EDT Pulse 84 06/29/2024 4:48 PM EDT Temperature 37 °C (98.6 °F) 06/29/2024 4:48 PM EDT Respiratory Rate 12 06/29/2024 4:48 PM EDT Oxygen Saturation - - Inhaled Oxygen Concentration - - Weight 65.9 kg (145 lb 3.2 oz) 06/29/2024 4:48 P M EDT Height - - Body Mass Index 25.72 06/20/2024 9:53 PM EDT documented in this [...] Progress Notes * Ishaan Pepe MD - 06/29/2024 5:11 PM EDT Chief Complaint Patient presents with Emergency Department Follow-Up Visual disturbance and headache - states she is not getting visual disturbances like she was; states she has a headache and pain up left side of neck; states she doesn't feel good - has pain to left side of chest SUBJECTIVE: Arely Hester is a 58 year old female with PMH as below who presents for ER follow up was at [facility] on 06/21/24 for vision changes 1 week. Having zigzag lines in vision, both sides but more on left. Come and go. Was seen in ER, felt not stroke, but told to see neurology and optho. She was seen by neuro optho, had mri/a ordered. Baby asa added. She notes since vision better, but getting headache, left side in neck to chest. No sob ,muñoz. Doesn't feel good today, is more confused and will trail off on thoughts. No slurred speech, but feels hand on left side more tingling and numb which is new today. She also notes doesn't feel good today, feels "off" Patient Active Problem List Diagnosis Acquired hypothyroidism Fibromyalgia Postlaminectomy syndrome, lumbar Thoracic and lumbosacral neuritis Mixed hyperlipidemia Severe tobacco use disorder S/P gastric bypass Stricture of esophagus Peroneal palsy, right Migraine variant Idiopathic peripheral neuropathy Liver cirrhosis secondary to nonalcoholic steatohepatitis (SOTOMAYOR) ([facility]) Hx of transient ischemic attack (TIA) Opioid dependence, uncomplicated (HCC) Gastro-esophageal reflux disease without esophagitis Intestinal postoperative nonabsorption History of depression Constipation Other osteoporosis without current pathological fracture Recurrent infections Chronic deep vein thrombosis (DVT) of right peroneal vein ([facility]) High risk for fracture due to osteoporosis by DEXA scan Other ascites Iron deficiency anemia secondary to inadequate dietary iron intake Paroxysmal SVT (supraventricular tachycardia) ([facility]) COPD, group D, by GOLD 2017 classification ([facility]) Mild mitral regurgitation History of pulmonary embolism Type 2 diabetes mellitus without complication ([facility]) Hyperparathyroidism ([facility]) Opioid dependence in remission ([facility]) Major depressive disorder, single episode, mild (HCC) Chronic pulmonary embolism ([facility]) Current Outpatient Medications Medication Sig Dispense Refill Buprenorphine HCl 8 MG Sublingual Tablet Sublingual (Subutex) Place 1 Tablet under the tongue 4 times a day. 90 Tablet 0 Pantoprazole Sodium 40 MG Oral Tablet Delayed Release (Protonix) Take 1 Tablet by mouth in the morning and 1 Tablet before bedtime. (Patient taking differently: Take 1 Tablet by mouth daily.) 180 Tablet 3 EPINEPHrine 0.3 MG/0.3ML Injection [...] the morning daily as needed for edema Mirtazapine 30 MG Oral Tablet (Remeron) TAKE ONE TABLET BY MOUTH AT BEDTIME 90 Tablet 2 Varenicline Tartrate 1 MG Oral Tablet (Chantix) Take 1 Tablet by mouth in the morning and 1 Tablet before bedtime. 60 Tablet 0 Vitamin A 3 MG (37904 UT) Oral Capsule (Aquasol-A) Take 1 Capsule by mouth in the morning. Synthroid 112 MCG Oral Tablet Take 1 Tablet by mouth in the morning. (at least 30 min prior to breakfast or other meds). 90 Tablet 3 Apixaban 2.5 MG Oral Tablet (Eliquis) Take 1 Tablet by mouth in the morning and 1 Tablet before bedtime. 60 Tablet 1 Ondansetron HCl 8 MG Oral Tablet (Zofran) TAKE ONE TABLET BY MOUTH EVERY 8 HOURS NEEDED FOR NAUSEA. 180 Tablet 2 Vitamin D3 25 MCG (1000 UT) Oral Tablet (Vitamin D3) Take 3 Tablets by mouth in the morning. 180 Tablet 3 Aspirin 81 MG Oral Tablet Delayed Release Take 1 Tablet by mouth in the morning. ProAir HFA 108 (90 Base) MCG/ACT Inhalation Aerosol Solution Inhale 2 Puffs by mouth every 4 hours as needed for Wheezing. 18 g 11 Current Facility-Administered Medications Medication Dose Route Frequency Provider Last Rate Last Admin Vitamin B-12 (Cyanocobalamin) inj 1,000 mcg 1,000 mcg Intramuscular Q4 Weeks 1,000 mcg at 06/29/24 1713 Review of patient's allergies indicates: Allergen Reactions Prilosec [Omeprazole] Anaphylaxis Tongue itchy, ear throbbing Adhesive Tape Rash Iodinated Contrast Media Tachypnea Povidone-Iodine Other reaction(s): . Health Maintenance Due Topic Date Due *ADVANCE DIRECTIVE NOT ON FILE Never done Diabetic Foot Exam 11/15/2020 DISCUSS TOBACCO CESSATION (REFER TO SMARTSET #9370) 06/25/2023 COVID-19 Vaccine () Never done Depression Monitoring 03/10/2024 DXA Scan 06/03/2024 ROS: CONSTITUTIONAL: No fevers, sweats, or chills PULMONARY: No cough, sputum, or hemoptysis, No wheezing, No rales, No shortness of breath, and No recent change in breathing CARDIOVASCULAR: No chest pain, No shortness of breath, No dyspnea on exertion, No orthopnea, No paroxysmal nocturnal dyspnea, and No syncope GASTROINTESTINAL: No abdominal pain, No change in bowel habits, No significant heartburn, No significant change in appetite, and No nausea, vomiting, diarrhea, or constipation ALL OTHER SYSTEMS NEGATIVE I reviewed social, [...] Sexual Activity Alcohol use: No Drug use: Yes Types: Marijuana Comment: medical marijuana card Sexual activity: Not Currently Other Topics Concern [...] Stability Do you currently live in a retirement or have no steady place to sleep [...] performed by Alice Cotton MD at [facility]OSCOPY [facility] COLONOSCOPY, DIAGNOSTIC (RECTUM) 06/29/2018 poor prep, repeat / COLONOSCOPY FLEXIBLE PROXIMAL DIAGNOSTIC performed by Alice Cotton MD at [facility] COLONOSCOPY, DIAGNOSTIC (RECTUM) 06/30/2018 biopsies show hyperplastic polyps/COLONOSCOPY FLEXIBLE PROXIMAL DIAGNOSTIC performed by Deandra Caballero MD at [facility] COLONOSCOPY, DIAGNOSTIC (RECTUM) N/A 11/24/2022 hemorrhoids/recall 5 years/COLONOSCOPY FLEXIBLE PROXIMAL DIAGNOSTIC performed by Mark Baptiste DO at OR [facility] EGD, FLEXIBLE, DIAGNOSTIC 05/14/2017 erosive gastropathy, duodenitis/ESOPHAGOGASTRODUODENOSCOPY (EGD), FLEXIBLE, TRANSORAL, DIAGNOSTIC performed by Alice Cotton MD at [facility] EGD, FLEXIBLE, DIAGNOSTIC 08/21/2017 mild gastritis/ESOPHAGOGASTRODUODENOSCOPY (EGD), FLEXIBLE, TRANSORAL, DIAGNOSTIC performed by Alice Cotton MD at [facility] EGD, FLEXIBLE, DIAGNOSTIC N/A 04/28/2018 ESOPHAGOGASTRODUODENOSCOPY (EGD), FLEXIBLE, TRANSORAL, DIAGNOSTIC performed by Jose E Callahan [facility] OR [facility] EGD, FLEXIBLE, DIAGNOSTIC 06/29/2018 GJ inflammation & severe stenosis, repeat 2 wks/ESOPHAGOGASTRODUODENOSCOPY (EGD), FLEXIBLE, TRANSORAL, DIAGNOSTIC performed by Alice Cotton MD at [facility] EGD, FLEXIBLE, DIAGNOSTIC 07/14/2018 anastomotic stenosis, repeat 2 wks/ESOPHAGOGASTRODUODENOSCOPY (EGD), FLEXIBLE, TRANSORAL, DIAGNOSTIC performed by Alice Cotton MD at [facility] EGD, FLEXIBLE, DIAGNOSTIC 07/28/2018 normal/ESOPHAGOGASTRODUODENOSCOPY (EGD), FLEXIBLE, TRANSORAL, DIAGNOSTIC performed by Alice Cotton MD at [facility] EGD, FLEXIBLE, DIAGNOSTIC 10/21/2018 normal bx/ESOPHAGOGASTRODUODENOSCOPY (EGD), FLEXIBLE, TRANSORAL, DIAGNOSTIC performed by Deandra Caballero MD at [facility] EGD, FLEXIBLE, DIAGNOSTIC N/A 05/13/2019 ESOPHAGOGASTRODUODENOSCOPY (EGD), FLEXIBLE, TRANSORAL, DIAGNOSTIC performed by Filiberto Haile [facility] EGD, FLEXIBLE, DIAGNOSTIC 01/27/2020 gastritis / ESOPHAGOGASTRODUODENOSCOPY (EGD), FLEXIBLE, TRANSORAL, DIAGNOSTIC performed by Deandra Caballero MD at [facility] EGD, FLEXIBLE, DIAGNOSTIC 07/18/2021 normal / ESOPHAGOGASTRODUODENOSCOPY (EGD), FLEXIBLE, TRANSORAL, DIAGNOSTIC performed by Nikko Martino MD at [facility] EGD, FLEXIBLE, DIAGNOSTIC N/A 11/24/2022 normal/ESOPHAGOGASTRODUODENOSCOPY (EGD), FLEXIBLE, TRANSORAL, DIAGNOSTIC performed by Mark Baptiste DO at OR [facility] EGD, FLEXIBLE, TRANSENDOSCOPIC DILATION <30MM N/A 07/07/2018 ESOPHAGOGASTRODUODENOSCOPY (EGD), FLEXIBLE, TRANSORAL, BALLOON DILATION LESS THAN 30MM performed byJose E Callahan MD at OR [facility] EGD, FLEXIBLE,W/ENDOSCOPIC US 09/05/2016 fatty liver, gastric & duodenal ulcers, normal bx, repeat EGD 2 mo/[facility] EVAL NEUROSTIM PULSE GEN, W/ REPROGRAM N/A 04/18/2016 NEUROSTIMULATOR PULSE GENERATOR/ TRANSMITTER, WITH INTRAOPERATIVE OR SUBSEQUENT PROGRAMMING performed by Kirti Devine MD at OR [facility] EVAL NEUROSTIM PULSE GEN, W/ REPROGRAM N/A 06/20/2016 NEUROSTIMULATOR PULSE GENERATOR/ TRANSMITTER, WITH INTRAOPERATIVE OR SUBSEQUENT PROGRAMMING performed by Kirti Devine MD at OR [facility] IMPLANT EPIDURAL NEUROELECTRODES N/A 04/18/2016 PERCUTANEOUS IMPLANTATION NEUROSTIMULATOR EPIDURAL performed by Kirti Devine MD at [facility] IMPLANT EPIDURAL NEUROELECTRODES N/A 06/20/2016 PERCUTANEOUS IMPLANTATION NEUROSTIMULATOR EPIDURAL performed by Kirti Devine MD at OR [facility] IMPLANT SPINAL NEURORECEIVER N/A 06/20/2016 INSERTION OR REPLACEMENT SPINAL NEUROSTIMULATOR GENERATOR performed by Kirti Devine MD at OR [facility] IMPLANT SPINAL NEURORECEIVER Left 08/09/2020 INSERTION OR REPLACEMENT SPINAL NEUROSTIMULATOR GENERATOR performed by Victor Manuel Scott MD at OR [facility] INFORMATION breast surgery x2 INFORMATION back surgery x2 LAPAROSCOPE PROCEDURE, LIVER N/A 04/28/2018 UNLISTED LAPAROSCOPIC PROCEDURE LIVER performed by Jose E Callahan MD at OR [facility] LAPAROSCOPIC GASTRIC BYPASS/BAKARI-EN-Y N/A 04/28/2018 LAPAROSCOPIC GASTRIC RESTRICTIVE BYPASS BAKARI EN Y performed by Jose E Callahan MD at OR [facility] LUMBAR HEMILAMINECTOMY L4-5 in and L3-4 in OTHER PERIPHERAL NERVE NEUROPLASTY, ARM/LEG Right 03/31/2019 NEUROPLASTY MAJOR PERIPHERAL NERVE ARM OR LEG performed by Elmer Sanford MD at OR [facility] REMOVAL OF APPENDIX REMOVAL OF OVARY(S) 2007 [...] Cancer Grandfather (Maternal) OBJECTIVE: PHYSICAL EXAM: BP 124/72 (BP Site: Left Arm, BP Position: Sitting, BP Cuff Size: Regular) | Pulse 84 | Temp 98.6 °F (37 °C) (Tympanic) | Resp 12 | Wt 145 lb 3.2 oz (65.9 kg) | BMI 25.72 kg/m² | BSA 1.71 m² General: alert, healthy, and no distress Head: Normocephalic, No masses, lesions, or abnormalities Eye Exam: PERRLA, conjunctiva are pink and non-injected, sclera clear Heart: regular rate & rhythm, no murmur, no gallops, PMI non-displaced, S-1 normal, and S-2 normal Lungs: normal respiratory rate and rhythm, lungs clear to auscultation Extremities: no edema, no clubbing, no cyanosis Neuro Exam: alert with fluent speech, gait normal, benefits manager strength normal stands on own, seems more confused 06/20/24 ER: In summary, presented for 1wk of visual disturbances describes as bright flashes/streak of light - also w MANUEL and lights bothering her. Ddx includes, not limited to, that in ED course. Imaging w MERCHANDISER abnormality vs artifact - no mass or bleeding, unlikely to represent stroke as d/w neuro - see separate note. No amaurosis type sx. Eyes perrl.eomi and no redness and fundosopy limited - retina appearsnml color, could not see central structures. As d/w neuro can have specialty f/u and decide if MRI needed - spinal stimulator per pt and is best/only imaged at [facility]. Trop elevated and flat, uncertain signfiicant - less likely ACS. Hgb drop also w no reported bleeding, can monitor woutpt repeat labs or return prn. No other neuro sx aside from worse than nml BLE numbness. Heart reg, no afib on EKG, lungs clear. Mild MANUEL 06/21/24 neuro optho: CTA Head/Neck 06/21/24 IMPRESSION 1. High-grade stenosis [...] the ED last night did reveal bilateral MERCHANDISER stenosis, it is possible that hypotensive episodes in this context could trigger visual and neurologic symptoms. Given she has cirrhosisher hemodynamic stability may vary. - Would benefit from neurology or vascular neurology evaluation both for the suspected headache disorder as well as for evaluation of MERCHANDISER stenosis - Has neurology appt 08/04/24, can try to move this up a bit if possible - MRI/MRA brain noncon - Needs to be done at [facility] in [place] as pt has a spinal stimulator - Return for DEC - Return precautions discussed 06/24/24 mra: 1. No large vessel occlusion. 2. Diminished flow in the mid and distal right posterior cerebral artery and stenotic lesion in the proximal, mid left posterior cerebral artery. 06.24.24 mri: Impression: 1. Curvilinear hyperintense lesion in the medial posterior superior right temporal lobe and a small lesion in the cortex of the right occipital lobe. These lesions are suspicious for acute or early subacute infarctions. The appearance is nonspecific however and therefore follow-up MRI is recommended. 2. Few small FLAIR hyperintense lesions in cerebral white matter. Those are nonspecific but probably due to chronic small vessel ischemia. Latest Reference Range & Units 03/10/24 12:52 06/20/24 22:56 CBC Rpt Rpt ! WBC 4.00 - 10.80 K/uL 5.83 5.11 RBC 3.85 - 5.15 M/uL 4.66 4.26 HGB 12.0 - 15.3 g/dL 12.1 10.5 (L) HCT 36.0 - 45.2 % 39.3 34.7 (L) MCV 81.5 - 97.5 fL 84.3 81.5 MCH 27.0 - 34.0 pg 26.0 24.6 MCHC 32.0 - 36.0 g/dL 30.8 30.3 RDW 11.5 - 15.5 % 14.0 15.4 PLT 140 - 400 K/uL 185 157 MPV 6.6 - 11.1 fL 12.1 12.9 CBC WITH WBC DIFFERENTIAL Rpt Rpt ! Absolute Neutrophils 1.80 - 7.70 K/uL 4.14 2.46 Absolute Lymphocytes 1.00 - 4.80 K/ul 1.30 2.05 Absolute Monocytes 0.00 - 1.10 K/uL 0.34 0.52 Absolute Eosinophils 0.00 - 0.70 K/uL 0.04 0.05 Absolute Basophils 0.00 - 0.20 K/uL 0.01 0.02 !: Data is abnormal (L): Data is abnormally low Rpt: View report in Results Review for more information ASSESSMENT: (H53.9) Visual disturbance (primary encounter diagnosis) (R41.0) Confusion (R71.0) Decreased hemoglobin (R93.89) Abnormal MRI (R20.0) Hand numbness (F11.21) Opioid dependence in remission (HCC) (I82.551) Chronic deep vein thrombosis (DVT) of right peroneal vein (HCC) (F32.0) Major depressive disorder, single episode, mild (HCC) (K91.2) Intestinal postoperative nonabsorption (E03.9) Acquired hypothyroidism (I27.82) Chronic pulmonary embolism, unspecified pulmonary embolism type, unspecified whether acutecor pulmonale present (HCC) (E53.8) Vitamin B12 deficiency PLAN: Visual disturbance (Primary) - VASC DUPLEX CAROTID BILAT Seems better overall, does have outpatient neurology scheduled, but given her new numbness in hand,confusion, concern for new event especially in setting of recent mri with possible acute cva Recommended er now, agrees Report called Offered ambulance, declines Confusion As above Decreased hemoglobin - CBC WITH WBC DIFFERENTIAL; Future; Expected date: 06/29/2024 Recheck soon Can consider increasing eliquis which was lowered 1 month ago after massive tongue bleeding, but would make sure hgb stable Abnormal MRI As above Hand numbness As above Opioid dependence in remission (HCC) Follow Chronic deep vein thrombosis (DVT) of right peroneal vein (HCC) Major depressive disorder, single episode, mild (HCC) Seems stable Intestinal postoperative nonabsorption Follow Acquired hypothyroidism Cont med Chronic pulmonary embolism, unspecified pulmonary embolism type, unspecified whether acute cor pulmonale present (HCC) Vitamin B12 deficiency - Vitamin B-12 (Cyanocobalamin) inj 1,000 mcg Follow-up: Return if symptoms worsen or fail to improve. | Check-out note: Can we move up neurology Ishaan Pepe MD documented in this encounter Nursing Notes * Дмитрий Puente RN - 06/29/2024 5:13 PM EDT Pre-Administration Time Out Procedure Performed: Yes Patient Identified (Ask Name/Date of ): Yes Does the patient have a fever greater than 101 degrees today? No Patient allergic to latex? No Has the patient ever fainted after receiving an injection? No VFC Stock: No Injection(s) verified: Yes, Injection Name: B12 Verified Side and Site: Yes Verified Shot(s) with Parent(s)/Patient: Yes * Дмитрий Puente RN - 06/29/2024 4:51 PM EDT Chief Complaint Patient presents with Emergency Department Follow-Up Visual disturbance and headache - states she is not getting visual disturbances like she was; states she has a headache and pain up left side of neck; states she doesn't feel good - has pain to left side of chest documented in this encounter Plan of Treatment Upcoming Encounters Date Type Department Care Team (Late st Contact Info) Description 07/19/2024 9:00 AM EDT Office Visit [facility] [address] [address] Wilfred Reddy MD [address], [place] [phone] [facility] [address] [place] [phone] Kristin Bridgeser [address] [address] 07/26/2024 2:30 PM EDT Office Visit Gastroenterology, [facility] [address] [place] [address] Kishore Regalado CRNP [address] [facility] [place] [address] 08/04/2024 3:40 PM EDT Office Visit Neurology [facility] [address] [facility] [place] [address] Violette Marshall MD [address] [facility] [place] [address] 09/06/2024 3:30 PM EDT Office Visit Pulmonary Medicine, [facility] [address] [place] [phone] Iker Toney MD [address] [place] [address] 09/27/2024 2:00 PM EDT Office Visit General Internal Medicine [facility] [address] [facility] [place] [address] Ishaan Pepe MD [address] [facility] [place], [place] [address] 10/25/2024 2:40 PM EDT Office Visit Hepatology, [facility] [address] [place] [phone] Kathryn Crespo, DO [address] [place] [address] 12/15/2024 4:15 PM EDT Imaging Radiology [address] [place] [phone] 06/28/2025 2:30 PM EDT Office Visit Rheumatology, [address] [address] Omega Galvin PA-C [address] [place] [address] [place], [place] [address] Scheduled Orders Name Type Priority Associated Diagnoses Orde r Schedule CBC WITH WBC DIFFERENTIAL Lab Routine Decreased hemoglobin Expected: 06/29/2024 (Approximate), Expires: 06/29/2025 VASC DUPLEX CAROTID BILAT Medical Imaging Routine Visual disturbance Ordered: 06/29/2024 Scheduled Procedures Name Priority Associated Diagnoses Date/Ti me COLONOSCOPY FLEXIBLE PROXIMA L DIAGNOSTIC Recall History of colonic polyps Health Maintenance Due Date Last Done Comments Cologuard 12/24/2012 Sigmoidoscopy 12/24/2012 *ADVANCE DIRECTIVE NOT ON FILE 03/12/2019 Diabetic Foot Exam 11/15/2020 11/16/2019, 0 09/21/2018, 08/06/2017, Additional history exists DISCUSS TOBACCO CESSATION (REFER TO SMARTSET #9933) 06/25/2023 06/24/2022, 05/27/2022, 05/19/2022, Additional history exists Fecal Occult Blood Test 11/20/2023 11/20/19, 11/19/2022, 11/19/2022 COVID-19 Vaccine ( - season) 2023 Depression Monitoring 03/10/2024 03/10/2023 DXA [...] D LEVEL ONCE IN A LIFETIME-USE SMARTSET# [id number] Completed 06/21/2024, 06/22/2023, 02/11/2023, Additional history exists [...] this encounter Medical Devices Implanted Type Area Wheat Washer Device Identifier Shelf Expiration Date Model / Serial / Lot Neurostimulat or-Battery Proclaim Elite [id number] Implanted:Qty : 1 on 06/20/2016 by Kirti Devine MD at OR [facility] Neurostimulator Left: Buttocks [facility] [employer] 05/27/2018 [id number] / [id number] / Description:[email or web address] [facility] 06/24/2024 PLEASE REVIEW PAGE 12 FOR ADDITIONAL [...] 06/20/2016 by Kirti Devine MD at [facility] N/A: Spine Lumbar [facility] [facility] 11/21/2017 [id number] / [id number] / [place], Lead Kit,60 Cm Implanted:Qty : 1 on 06/20/2016 by Kirti Devine MD at [facility] N/A: Spine Lumbar [facility] 05/02/2018 [id number] / [id number] / [place] 1192 - [id number] Implanted:Qty : 2 on 06/20/2016 by Kirit Devine MD at [facility] Left: Buttocks [facility] [employer] 06/27/2017 [id number] / / [id number] documented as of this encounter Visit Diagnoses [...] (HCC) Visual disturbance- Primary Unspecified visual disturbance Confusion Unspecified psychosis Decreased hemoglobin Anemia, unspecified Abnormal MRI Other nonspecific (abnormal) findings on radiological and other examinations of body structure Hand numbness Disturbance of skin sensation Opioid dependence in remission (HCC) Opioid type dependence, in remission Chronic deep vein thrombosis (DVT) of right peroneal vein (HCC) Major depressive disorder, single episode, mild (HCC) Major depressive disorder, single episode, mild Intestinal postoperative nonabsorption Other and unspecified postsurgical nonabsorption Acquired hypothyroidism Unspecified hypothyroidism Chronic pulmonary embolism, unspecified pulmonary embolism type, unspecified whether acute cor pulmonale present (HCC) Vitamin B12 deficiency Other B-complex deficiencies Screening mammogram for breast cancer documented in this encounter Administered Medications Active Administered Medications - up to 3 most recent administrations Medication Order MAR Action Action Date Dose Rate Site Vitamin B-12 (Cyanocobalamin) inj 1,000 mcg 1,000 mcg, Intramuscular, [id number], First dose on Thu06/29/24 at 1730, Last dose on Thu05/03/25 at 1730, For 12 dosesIndications:Vitam in B12 deficiency Given 06/29/2024 5:13 PM EDT 1,000 mcg Deltoid Right Upper documented in this encounter Advance Directives [...] patient or by statute hierarchy) Care Teams Trial Manager Relationship Specialty Start Date End Date Ishaan Pepe MD [address] [place] [address], [place] [address] PCP - General Internal Medicine 07/18/21 documented as of this encounter
[2024-06-30] MEDS: FAMOTIDINE 20 MG TAB ONE (14:14)
[2024-06-30] MEDS ORDERED: STROKE PATIENT DISCHARGE STA (14:59)
--- NOTE | 2024-06-30 15:03 | Neurology Consultation ---
Date of Consultation June 30, 2024 Assessment & Plan (1) Acute ischemic stroke: Possible acute ischemic stroke within the right temporal lobe getting represents her symptoms. Current NH is 1. Scan of the head shows small area of hypodensity within the left right temporal area CTA with scattered atherosclerotic disease. Plan Okay with continuing aspirin 81 mg. Low-dose statin if okay from the liver standpoint. Risk factor modifications. Treat underlying infections. Okay for discharge from neurology standpoint Telehealth Consultation Telehealth Information Telehealth Information: I performed this visit using a real-time telehealth connection between my location and the patients location ([facility]). After connecting through interactive tele-video, patient was identified by name and date of and/or wristband check.Patient (or authorized healthcare passenger representative) was informed that this was a telemedicine visit and it was being conducted confidentially over secure lines. My office door was closed and no one else was present in the room with me.Patient (or authorized healthcare passenger representative) provided consent to proceed with the visit, expressed an understanding of privacy and security of the telemedicine visit, and gave permission to have a hospital passenger representative in the room in order to assist with the visit and to conduct portions of the visit, as needed. I informed the patient (or authorized healthcare passenger representative) that I reviewed their record and presented the opportunity for them to ask any questions regarding the visit today. The patient agreed to participate. History of Present Illness Reason for Consultation: stroke-like symptoms Attending Physician: Eleuterio Mckenna MD History of Present Illness 58 Y old female patient with PMH of multidrug-resistant Enterobacter UTI, COPD, fibromyalgia SOTOMAYOR hypothyroidism and mood disorder neuropathic pain, right peroneal palsy (right foot drop) history of thiamine deficiency status post gastric bypass surgery and 2019 , history of strokelike symptoms with negative MRIs who has presented to the hospital for her urine culture showing multidrug- resistant organisms. In the interim the patient has been reporting on and off tingling and numbness of the left side, associated with some headache headache, sometimes she will see zigzag lines in her vision, she denies any focal weakness any loss of consciousness. Her headache is left-sided and frontal. An MRI was done on 06/24/2024 that shows flair signal abnormality within the medial and superior right temporal lobe. alicia picious for an acute infarcts . CT head shows hypodensity within the same area. CTA shows scattered atherosclerotic disease with no flow-limiting stenosis. The patient currently denies any weakness any visual field cut coming, any difficulties with speech or ambulation. Reports that she just does not feel right with her left side,, intermittent numbness and tingling. She is currently being treated for UTI and getting ready for discharge. Allergies Allergy/AdvReac Type Severity Reaction Status Date / Time adhesive Allergy Severe Blister Verified 06/29/24 19:11 Iodinated Contrast Media Allergy Severe ANAPHYLAXIS Verified 06/29/24 19:11 omeprazole Allergy Severe ANAPHYLAXIS Verified 06/29/24 19:11 peanut Allergy Intermediate LIPS SWELL Verified 06/29/24 19:11 FROM PEANUT SHELL DUST povidone-iodine Allergy Intermediate blisters Verified 06/29/24 19:11 [From Betadine] erythromycin base AdvReac Intermediate GI UPSET Verified 06/29/24 19:11 Home Medications Medication Instructions Recorded Confirmed Type buprenorphine HCl 8 mg sublingual 8 mg sublingual QID 10/10/21 06/29/24 History tablet mirtazapine 30 mg tablet 30 mg PO HS 10/10/21 06/29/24 History ondansetron HCl 8 mg tablet 8 mg PO BID PRN Nausea 10/10/21 06/29/24 History cyanocobalamin (vitamin B-12) 1,000 mcg IM .EVERY 4 WEEKS 11/09/21 06/29/24 History 1,000 mcg/mL injection solution epinephrine 0.3 mg/0.3 mL 0.3 mg IM UD PRN Allergic Reaction 11/09/21 06/29/24 History injection, auto-injector methocarbamol 750 mg tablet 750 mg PO TID PRN MUSCLE SPASMS 06/09/22 06/29/24 History albuterol sulfate 90 mcg/actuation 2 puff inhalation Q4 PRN Shortness 08/12/22 06/29/24 History aerosol inhaler (ProAir HFA) Of Breath Or Wheezing calcium citrate 500 mg PO BID 08/12/22 06/29/24 History lactobacillus combination no.4 3 3 mmu cells PO DAILY 08/12/22 06/29/24 History billion cell capsule (Probiotic) lactulose 10 gram/15 mL oral 45 ml PO TID PRN BOWEL MOVEMENT 08/12/22 06/29/24 History solution sennosides 8.6 mg tablet (senna) 8.6 mg PO BID 08/12/22 06/29/24 History pantoprazole 40 mg tablet,delayed 40 mg PO BID #60 tabs 08/14/22 06/29/24 Rx release apixaban 2.5 mg tablet (Eliquis) 2.5 mg PO BID 06/29/24 06/29/24 History cholecalciferol (vitamin D3) 25 3,000 unit PO QAM 06/29/24 06/29/24 History mcg (1,000 unit) tablet furosemide 40 mg tablet (Lasix) 40 mg PO QAM PRN Fluid Retention 06/29/24 06/29/24 History levothyroxine 112 mcg tablet 112 mcg PO QAM 06/29/24 06/29/24 History (Synthroid) aspirin 81 mg tablet,delayed 81 mg PO DAILY #30 tabs 06/30/24 Rx release atorvastatin 20 mg tablet 20 mg PO HS #30 tabs 06/30/24 Rx Patient History Medical History Cor pulmonale w/ PE/EVT 04/2022 DVT (deep venous thrombosis) 04/2022 femoral vein, right lower extremity Cirrhosis Rotator cuff injury from fall 04/2022 Malnourished Fractured pelvis 04/2022 from a fall, currently using a walker Hx pulmonary embolism 04/2022- hospitalized [facility], currently taking eliquis COPD (chronic obstructive pulmonary disease) History of COVID-19 06/2020- does not remember what her symptoms were- NO HOSPITALIZATION 05/2022 - hospitalized [facility] Weight loss, unintentional Dysphagia Bronchitis hx Sinus infection hx Falls frequently d/t drop foot Osteoarthritis Peptic ulcer disease HX GERD (gastroesophageal reflux disease) History of esophageal stricture Temporomandibular joint disorder MILD. CLICKS BUT NEVER LOCKED. Foot drop RIGHT Migraine HX Surgical History Hx of colonoscopy History of esophagogastroduodenoscopy (EGD) H/O cervical discectomy with a cage (done at [facility]) Full ROM. Status post surgery right leg nerve decompression for foot drop S/P ANSHU-BSO Hx of lumpectomy (-) RIGHT BREAST History of breast biopsy MULITPLE ON BILATERAL BREASTS History of laminectomy LUMBAR AREA X2 History of cholecystectomy History of esophageal dilatation Family History Family/Other Family hx of colon cancer Father Family history of diabetes mellitus Grandmother (Maternal) Family history of diabetes mellitus Other No family history of adverse response to anesthesia Social History (Updated 06/29/24 @ 21:40 by Kelli Mary PA-C) Smoking Status: Current every day smoker Tobacco Type: Cigarettes Cigarettes Per Day: pt states less than 1/2 PPD; Second Hand Exposure: No; Do You Dip or Chew Tobacco: No; Hx Alcohol Use: No Hx Substance Use: No Preferred Language: Indian Communication Ability: Effective Check Services Clerk Required: No Beliefs That Will Affect Care: None marital status: Current Living Situation: Spouse and Family Current Living Situation Comment: Lives with and children at home Other Information That Helps Us Care for You: No Feels Safe at Home: Yes Safety Concerns: Feels Safe At This Time Assistive Devices: Denture - Upper, Denture - Lower and Glasses Review of Systems Negative except for the points mentioned in HPI Physical Exam General Constitutional: Appearance normally developed Head and face: normocephalic and atraumatic Eyes: no ptosis, no anisocoria, and no dysconjugate gaze Respiratory: normal effort Cardiovascular: regular rhythm and regular rate Abdomen: non distended Skin: no rashes, lesions, or ulcers noted Psychiatric: normal judgement and insight, normal mood, and normal affect NEUROLOGIC EXAMINATION: Mental Status:alert, oriented to time, place, person, normal recent memory, normal remote memory, normal attention span, normal concentration, normal language and normal fund of knowledge Cranial Nerves: CN 2 - no visual defect on confrontation and pupils round, equal, reactive to light CN 3, 4, 6 - extra-ocular movements intact and no nystagmus CN 5 - facial sensation intact CN 7 - no facial asymmetry CN 8 - intact hearing CN 9, 10 - palate symmetric, normal gag CN 11 - good shoulder shrug CN 12 - tongue midline MOTOR: Strength was at least antigravity throughout, Pronator drift was absent and There were no abnormal movements SENSATION: mild decrease in sensation over the left arm GAIT: stable, no ataxia and can perform tandem walking COORDINATION: no ataxia with finger to nose testing and heel to mccormick testing REFLEXES: cannot assess over telemedicine NIH Stroke Scale: 1a. Level of Consciousness: alert = 0 1b. LOC Questions: (month, age): both correct = 0 1c. LOC Commands (open and close eyes, make fist and let go using non-paretic hand): obeys both correctly = 0 2. Best Gaze (eyes open and patient follows examiner's finger or face): normal = 0 3. Visual (visual threat or finger counting in each quadrant): no loss = 0 4. Facial Palsy (show teeth, raise eye brows and squeeze eyes shut, or grimace symmetry in a comatose patient): normal = 0 5a. Motor Arm (extend arm (palms down) to 90 degrees and score drift/movement (10 seconds) - Left: no drift = 0 5b. Motor Arm: (extend arm (palms down) to 90 degrees and score drift/movement (10 seconds) - Right: no drift = 0 6a. Motor Leg (elevate leg 30 degrees and score drift/ movement (5 seconds) - Left: no drift = 0 6b. Motor Leg (elevate leg 30 degrees and score drift/ movement (5 seconds) - Right: no drift = 0 7. Limb Ataxia (finger to nose, heel down mccormick): absent = 0 8. Sensory (pin prick to face, arm, trunk and leg, compare side to side):l = 1 9. Best Language: no aphasia = 0 10. Dysarthria (evaluate speech clarity by patient repeating listed words): normal articulation = 0 11. Extinction and Inattention: no neglect = 0 Total: 1 Results & Data Vital Signs (Past 12 Hours) Vital Signs Temp Pulse Pulse Resp BP BP Pulse Ox 06/30/24 11:48 36.7 C 84 18 133/82 98 06/30/24 11:01 53 L 06/30/24 07:59 36.4 C L 58 L 18 129/76 96 06/30/24 07:27 06/30/24 03:03 36.3 C L 55 L 18 116/71 96 O2 Del Method 06/30/24 11:48 Room Air 06/30/24 11:01 06/30/24 07:59 Room Air 06/30/24 07:27 Room Air 06/30/24 03:03 Room Air Laboratory Results Laboratory Results - last 24 hr 06/29/24 06/29/24 06/29/24 18:24 18:25 18:29 WBC 5.47 RBC 4.49 Hgb 10.8 L POC Hgb 11.9 L Hct 35.8 L POC Hct 35 L MCV 79.7 L MCH 24.1 L MCHC 30.2 L RDW Std Deviation 44.6 RDW Coeff of Lionel 15.4 H Plt Count 202 MPV 12.2 Immature Gran % (Auto) 0.4 Neut % (Auto) 51.0 Lymph % (Auto) 40.0 [place] % (Auto) 7.5 Eos % (Auto) 0.7 Baso % (Auto) 0.4 Neut # (Auto) 2.79 Lymph # (Auto) 2.19 [place] # (Auto) 0.41 Eos # (Auto) 0.04 Baso # (Auto) 0.02 Immature Gran # (Auto) 0.02 PT 10.3 INR 0.9 POC Sodium 140 Sodium 138 POC Potassium 3.7 Potassium 3.7 POC Chloride 101 Chloride 105 Carbon Dioxide 29 POC Total CO2 26 Anion Gap 4 POC Anion Gap 17.0 POC BUN 11 BUN 11 Creatinine 0.83 POC Creatinine 0.9 Est Cr Clr Drug Dosing 69.7 eGFR 82.69 BUN/Creatinine Ratio 13.3 Glucose 87 POC Glucose POC Glucose (other) 88 Estimat Average Glucose Hemoglobin A1c Calcium 9.2 POC Ioniz Calcium Justus 1.19 Magnesium 2.0 Iron 37 TIBC 571 H Transferrin 408 H Transferrin % Sat 6 L Ferritin 6.0 L Total Bilirubin 0.5 AST 24 ALT 13 Alkaline Phosphatase 100 Ammonia 34.0 Troponin I High Sens 3.8 Total Protein 7.1 Albumin 4.1 Globulin 3.0 Albumin/Globulin Ratio 1.4 Triglycerides Cholesterol LDL Cholesterol, Calc VLDL Cholesterol, Calc HDL Cholesterol Cholesterol/HDL Ratio TSH 0.072 L Free T4 1.04 Urine Color Yellow Urine Appearance Clear Urine pH 5.5 Ur Specific [place] 1.015 Urine Protein Negative Urine Glucose (UA) Negative Urine Ketones Negative Urine Blood Negative Urine Nitrite Negative Urine Bilirubin Negative Urine Urobilinogen Negative Ur Leukocyte Esterase Negative Adenovirus (PCR) B. pertussis DNA (PCR) B.parapertussis DNA PCR C. pneumoniae DNA (PCR) Coronavirus OC43 (PCR) Coronavirus HKU1 (PCR) Coronavirus 229E (PCR) SARS-CoV-2 (PCR) Coronavirus NL63 (PCR) Human Metapneumovir PCR Influenza Type A (PCR) Influenza Type B (PCR) M. pneumoniae (PCR) Parainfluenza 1 (PCR) Parainfluenza 2 (PCR) Parainfluenza 3 (PCR) Parainfluenza 4 (PCR) RSV (PCR) Entero/Rhino (PCR) Blood Type A Positive Antibody Screen NEGATIVE 06/29/24 06/30/24 06/30/24 18:30 05:47 08:20 WBC 4.50 L RBC 4.46 Hgb 10.9 L POC Hgb Hct 35.6 L POC Hct MCV 79.8 L MCH 24.4 L MCHC 30.6 L RDW Std Deviation 44.2 RDW Coeff of Lionel 15.2 H Plt Count 172 MPV 12.5 H Immature Gran % (Auto) 0.2 Neut % (Auto) 76.6 Lymph % (Auto) 21.6 [place] % (Auto) 1.6 Eos % (Auto) 0.0 Baso % (Auto) 0.0 Neut # (Auto) 3.45 Lymph # (Auto) 0.97 L [place] # (Auto) 0.07 L Eos # (Auto) 0.00 Baso # (Auto) 0.00 Immature Gran # (Auto) 0.01 PT INR POC Sodium Sodium 140 POC Potassium Potassium 4.0 POC Chloride Chloride 107 Carbon Dioxide 28 POC Total CO2 Anion Gap 5 POC Anion Gap POC BUN BUN 12 Creatinine 0.70 POC Creatinine Est Cr Clr Drug Dosing 82.2 eGFR 101.44 BUN/Creatinine Ratio 17.1 Glucose 161 H POC Glucose 170 H POC Glucose (other) Estimat Average Glucose 128 Hemoglobin A1c 6.1 H Calcium 9.2 POC Ioniz Calcium Justus Magnesium Iron TIBC Transferrin Transferrin % Sat Ferritin Total Bilirubin AST ALT Alkaline Phosphatase Ammonia Troponin I High Sens Total Protein Albumin Globulin Albumin/Globulin Ratio Triglycerides 74 Cholesterol 172 LDL Cholesterol, Calc 109 VLDL Cholesterol, Calc 15 HDL Cholesterol 48 Cholesterol/HDL Ratio 3.6 TSH Free T4 Urine Color Urine Appearance Urine pH Ur Specific [place] Urine Protein Urine Glucose (UA) Urine Ketones Urine Blood Urine Nitrite Urine Bilirubin Urine Urobilinogen Ur Leukocyte Esterase Adenovirus (PCR) Not Detected B. pertussis DNA (PCR) Not Detected B.parapertussis DNA PCR Not Detected C. pneumoniae DNA (PCR) Not Detected Coronavirus OC43 (PCR) Not Detected Coronavirus HKU1 (PCR) Not Detected Coronavirus 229E (PCR) Not Detected SARS-CoV-2 (PCR) Not Detected Coronavirus NL63 (PCR) Not Detected Human Metapneumovir PCR Not Detected Influenza Type A (PCR) Not Detected Influenza Type B (PCR) Not Detected M. pneumoniae (PCR) Not Detected Parainfluenza 1 (PCR) Not Detected Parainfluenza 2 (PCR) Not Detected Parainfluenza 3 (PCR) Not Detected Parainfluenza 4 (PCR) Not Detected RSV (PCR) Not Detected Entero/Rhino (PCR) Not Detected Blood Type Antibody Screen 06/30/24 12:15 WBC RBC Hgb POC Hgb Hct POC Hct MCV MCH MCHC RDW Std Deviation RDW Coeff of Lionel Plt Count MPV Immature Gran % (Auto) Neut % (Auto) Lymph % (Auto) [place] % (Auto) Eos % (Auto) Baso % (Auto) Neut # (Auto) Lymph # (Auto) [place] # (Auto) Eos # (Auto) Baso # (Auto) Immature Gran # (Auto) PT INR POC Sodium Sodium POC Potassium Potassium POC Chloride Chloride Carbon Dioxide POC Total CO2 Anion Gap POC Anion Gap POC BUN BUN Creatinine POC Creatinine Est Cr Clr Drug Dosing eGFR BUN/Creatinine Ratio Glucose POC Glucose 127 H POC Glucose (other) Estimat Average Glucose Hemoglobin A1c Calcium POC Ioniz Calcium Justus Magnesium Iron TIBC Transferrin Transferrin % Sat Ferritin Total Bilirubin AST ALT Alkaline Phosphatase Ammonia Troponin I High Sens Total Protein Albumin Globulin Albumin/Globulin Ratio Triglycerides Cholesterol LDL Cholesterol, Calc VLDL Cholesterol, Calc HDL Cholesterol Cholesterol/HDL Ratio TSH Free T4 Urine Color Urine Appearance Urine pH Ur Specific [place] Urine Protein Urine Glucose (UA) Urine Ketones Urine Blood Urine Nitrite Urine Bilirubin Urine Urobilinogen Ur Leukocyte Esterase Adenovirus (PCR) B. pertussis DNA (PCR) B.parapertussis DNA PCR C. pneumoniae DNA (PCR) Coronavirus OC43 (PCR) Coronavirus HKU1 (PCR) Coronavirus 229E (PCR) SARS-CoV-2 (PCR) Coronavirus NL63 (PCR) Human Metapneumovir PCR Influenza Type A (PCR) Influenza Type B (PCR) M. pneumoniae (PCR) Parainfluenza 1 (PCR) Parainfluenza 2 (PCR) Parainfluenza 3 (PCR) Parainfluenza 4 (PCR) RSV (PCR) Entero/Rhino (PCR) Blood Type Antibody Screen Diagnostic Findings An MRI was done on 06/24/2024 that shows flair signal abnormality within the medial and superior right temporal lobe. suspicious for an acute infarcts . CT head shows hypodensity within the same area. CTA shows scattered atherosclerotic disease with no flow-limiting stenosis. Medications Administered Home Medications Medication Instructions Recorded Confirmed Last Taken buprenorphine HCl 8 mg sublingual 8 mg sublingual QID 10/10/21 06/29/24 06/29/24 14:00 tablet mirtazapine 30 mg tablet 30 mg PO HS 10/10/21 06/29/24 06/28/24 ondansetron HCl 8 mg tablet 8 mg PO BID PRN Nausea 10/10/21 06/29/24 Unknown cyanocobalamin (vitamin B-12) 1,000 mcg IM .EVERY 4 WEEKS 11/09/21 06/29/24 06/29/24 1,000 mcg/mL injection solution epinephrine 0.3 mg/0.3 mL 0.3 mg IM UD PRN Allergic Reaction 11/09/21 06/29/24 Unknown injection, auto-injector methocarbamol 750 mg tablet 750 mg PO TID PRN MUSCLE SPASMS 06/09/22 06/29/24 Unknown albuterol sulfate 90 mcg/actuation 2 puff inhalation Q4 PRN Shortness 08/12/22 06/29/24 Unknown aerosol inhaler (ProAir HFA) Of Breath Or Wheezing calcium citrate 500 mg PO BID 08/12/22 06/29/24 Unknown lactobacillus combination no.4 3 3 mmu cells PO DAILY 08/12/22 06/29/24 Unknown billion cell capsule (Probiotic) lactulose 10 gram/15 mL oral 45 ml PO TID PRN BOWEL MOVEMENT 08/12/22 06/29/24 Unknown solution sennosides 8.6 mg tablet (senna) 8.6 mg PO BID 08/12/22 06/29/24 06/28/24 pantoprazole 40 mg tablet,delayed 40 mg PO BID #60 tabs 08/14/22 06/29/24 06/29/24 release apixaban 2.5 mg tablet (Eliquis) 2.5 mg PO BID 06/29/24 06/29/24 06/29/24 cholecalciferol (vitamin D3) 25 3,000 unit PO QAM 06/29/24 06/29/24 06/29/24 mcg (1,000 unit) tablet furosemide 40 mg tablet (Lasix) 40 mg PO QAM PRN Fluid Retention 06/29/24 06/29/24 Unknown levothyroxine 112 mcg tablet 112 mcg PO QAM 06/29/24 06/29/24 06/29/24 (Synthroid) aspirin 81 mg tablet,delayed 81 mg PO DAILY #30 tabs 06/30/24 Unknown release atorvastatin 20 mg tablet 20 mg PO HS #30 tabs 06/30/24 Unknown Active Medications Generic Name Dose Route Start Last Admin Trade Name Freq PRN Reason Stop Dose Admin Acetaminophen 500 mg 06/29/24 22:15 06/30/24 11:23 Acetaminophen 500 Mg Tab PO 07/29/24 22:14 500 mg Q6H PRN Administration fever/pain Apixaban 2.5 mg 06/29/24 22:15 06/30/24 07:57 Apixaban 2.5 Mg Tab PO 07/29/24 22:14 2.5 mg BID MEGHNA Administration Aspirin 81 mg 06/30/24 09:00 06/30/24 07:57 Aspirin 81 Mg Ectab PO 07/30/24 08:59 81 mg DAILY MEGHNA Administration Buprenorphine HCl 8 mg 06/29/24 21:20 06/30/24 12:46 Buprenorphine Hcl 8 Mg Subl SL 07/29/24 21:19 8 mg QID MEGHNA Administration Insulin Aspart 0 units 06/30/24 07:30 06/30/24 12:41 Insulin Aspart Per Unit Charge SC 07/30/24 07:29 Not Given ACHS MEGHNA Lactobacillus Acidophilus 1,250 mg 06/30/24 09:00 06/30/24 07:57 Advanced Probiotic 625 Mg Capsule PO 07/30/24 08:59 1,250 mg DAILY MEGHNA Administration Lactulose 30 gm 06/29/24 22:15 06/29/24 23:04 Lactulose Syrup 30 Gm/45 Ml Udp PO 07/29/24 22:14 30 gm HS MEGHNA Administration Levothyroxine Sodium 112 mcg 06/30/24 06:30 06/30/24 05:43 Levothyroxine Sodium 112 Mcg Tablet PO 07/30/24 06:29 112 mcg DAILYBB MEGHNA Administration Mirtazapine 30 mg 06/29/24 22:15 06/29/24 23:04 Mirtazapine Tab 15 Mg Tab PO 07/29/24 22:14 30 mg HS MEGHNA Administration Pantoprazole Sodium 40 mg 06/30/24 09:00 06/30/24 07:57 Pantoprazole 40 Mg Tab PO 07/30/24 08:59 40 mg BID MEGHNA Administration Sennosides 8.6 mg 06/30/24 09:00 06/30/24 07:57 Senna 8.6 Mg Tab PO 07/30/24 08:59 8.6 mg BID MEGHNA Administration
--- NOTE | 2024-06-30 15:05 | Discharge Summary ---
Date of Service June 30, 2024 Admission HPI Per Admitting Provider Patient is a 58-year-old female with PMH RODRIGUES cirrhosis, ascites, COPD, history of DVT on anticoagulation, history of gastric bypass, history esophageal stricture, GERD, HLD, hypothyroidism, fibromyalgia, thoracic and lumbosacral neuritis, history of TIA, and others listed below presented to ER for MANUEL and left sided paresthesias. Per outpatient chart review ER visit at [facility] on 06/20/2024 for vision changes that had been occurring for 1 week. She describes as bright zigzags in vision that would be followed by reported vision loss. Patient states was also having headaches last week but is unsure if they were related or coincided with the vision disturbance. Per outpatient chart review she was seen by ophthalmology on 06/21/2024 who had recommended neurology evaluation. Patient has neurology appointment scheduled on 08/04/2024. MRI/MRI brain ordered however patient has spinal stimulator and it is reported needs to be done at [facility] in [place]. MRI completed on 06/24/24. She reports the zigzag visual disturbance and loss of vision have not recurred since last week. She states she had been having "flashes of light" but denies any further visual loss. She states past couple days has not been having any noted flashes of light. States today she was feeling "off". She feels like her left eye is "lazy" and may be vision is a little more blurry than usual. She was seen today by PCP and reported that her vision was improving however today felt more confused and was complaining of left-sided headache and tingling to left hand today. Was referred to ER today with concern for stroke with her new onset of symptoms. Patient states the left-sided headache and neck discomfort have since resolved. This evening she has right posterior headache. She reports since being in ER that has also resolved. States today started with left sided chest pain that occurred at rest. She reports this is since resolved. She reports the tingling sensation to her left hand has also improved since being in ER tonight. States over a month been having trouble remembering in which she describes as "losing her train of thought" often. She states last week noticed bilateral legs seemed more weak and was easily thrown off balance by changes in height of kim. Denies fall. Denies any noted facial drooping or speech changes. Reports chronic constipation. Last BM one week ago. Reports is to be taking lactulose three times a day however has not been taking it as she reports makes her nauseated. Denies fever/chills, diaphoresis, dizziness, syncope, SOB, palpitations, cough, sore throat, choking, rhinorrhea, abdominal pain, extremity edema, rashes, dysuria, hematuria. 06/20/24 CTA Head & Neck: IMPRESSION: 1. 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 There is enhancement of the distal P2 vessels, diminished on the left. Evaluation limited by venous contamination. Recommend further evaluation with noncontrast MRI of the brain and MR angiogram of the head. 2. No significant stenosis of the cervical carotid or vertebral arteries. 06/24/24 MRA Head W/O Contrast: IMPRESSION: 1. No large vessel occlusion. 2. Diminished flow in the mid and distal right posterior cerebral artery and stenotic lesion in the proximal, mid left posterior cerebral artery. 06/24/24 MRI Brain W/O Contrast: IMPRESSION: 1. Curvilinear hyperintense lesion in the medial posterior superior right temporal lobe and a small lesion in the cortex of the right occipital lobe. These lesions are suspicious for acute or early subacute infarctions. The appearance is nonspecific however and therefore follow-up MRI is recommended. 2. Few small FLAIR hyperintense lesions in cerebral white matter. Those are nonspecific but probably due to chronic small vessel ischemia. Admission Exam Per Admitting Provider General: no distress, chronic ill appearing Head: normocephalic, atraumatic Eyes: PERRL, EOM's intact, conjunctiva non-injected, anicteric ENT: normal inspection external ears, nose, mucous membranes moist Neck: supple, trachea midline Lungs: clear, no respiratory distress, no wheezing/rhonchi/rales CV: RRR, no murmur, no pretibial edema Abd: normal BS, soft, non-tender Ext: no cyanosis, no calf tenderness Neuro: A&O x 3, no focal deficits noted, normal affect, visual garcía intact. PERRL, EOMs intact. No nystagmus, facial sensation is intact and symmetric, face is strong and symmetric, hearing grossly intact, soft palate elevates symmetrically, no dysarthria, shoulder shrug intact, tongue is midline, normal movement, no fasciculations, muscle tone normal. Strength 5/5 throughout. Skin: warm, dry Principal Diagnosis Strokelike symptoms Discharge Exam General: no distress, chronic ill appearing Head: normocephalic, atraumatic Eyes: PERRL, EOM's intact, conjunctiva non-injected, anicteric ENT: normal inspection external ears, nose, mucous membranes moist Neck: supple, trachea midline Lungs: clear, no respiratory distress, no wheezing/rhonchi/rales CV: RRR, no murmur, no pretibial edema Abd: normal BS, soft, non-tender Ext: no cyanosis, no calf tenderness Neuro: A&O x 3, no focal deficits noted, normal affect, visual garcía intact. PERRL, EOMs intact. No nystagmus, facial sensation is intact and symmetric, face is strong and symmetric, hearing grossly intact, soft palate elevates symmetrically, no dysarthria, shoulder shrug intact, tongue is midline, normal movement, no fasciculations, muscle tone normal. Strength 5/5 throughout. Skin: warm, dry Discharge Data Allergies Allergy/AdvReac Type Severity Reaction Status Date / Time adhesive Allergy Severe Blister Verified 06/29/24 19:11 Iodinated Contrast Media Allergy Severe ANAPHYLAXIS Verified 06/29/24 19:11 omeprazole Allergy Severe ANAPHYLAXIS Verified 06/29/24 19:11 peanut Allergy Intermediate LIPS SWELL Verified 06/29/24 19:11 FROM PEANUT SHELL DUST povidone-iodine Allergy Intermediate blisters Verified 06/29/24 19:11 [From Betadine] erythromycin base AdvReac Intermediate GI UPSET Verified 06/29/24 19:11 Consultations 06/29/24 19:47 ED Decision to Admit Stat 06/30/24 01:00 Consult Neurology Routine Ordered Studies 06/29/24 18:11 CT head/brain wo con Stat 06/29/24 18:12 CT angio head w con Stat CT angio neck with con Stat Hospital Course (1) Stroke-like symptoms: (2) 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 See addendum. Plan per prior attending with addendum FINAL ASSESSMENT AND PLAN as follows : Recurrent TIA Subacute CVA on outpatient MRI Hypertension, elevated secondary to above PSVT as per records History of PVD NAFLD cirrhosis, compensated hx COPD, not in acute exacerbation hypothyroidism, TSH noted to be low DM 2, diet controlled, well-controlled as of recent hemoglobin A1c of 5.9 last February 2024 Hyperlipidemia, statin noncompliance New onset anemia, stable hemoglobin following ER visit last month. Possibly from transient tongue bleeding episode. FOBT done at the ER negative. history of gastric bypass chronic back pain status post surgery/postlaminectomy syndrome status post spinal cord stimulator placement fibromyalgia/chronic pain on Suboxone history subacute PE/LE DVT on Eliquis ongoing tobacco abuse OBS Admit to medical telemetry Neurochecks Aspirin and statin Rx for secondary stroke prevention Permissive hypertension for now. Lisinopril if with persistent BP elevation TTE re: TIA Neurology consult Re: Recurrent TIA ISS BG goal 1 10-140, carb count coverage Recheck TSH next month Nicotine patch as needed DVT prophylaxis. Eliquis Full code Addendum/05/2024: Patient was seen and examined at bedside as a follow-up of subacute CVA noted on outpatient MRI and concern for recurrent TIA. Patient reported resolution of her vision changes and tingling sensation x LUE and headache. Patient was started on baby aspirin and high-dose statin. Given her history of Rodrigues and cirrhosis, statin dose will be reduced to 20 Mg daily with close monitoring of LFT as an outpatient with the PCP office. Discussed the case with neurology, patient to follow-up with neurology in 1 to 2 weeks time upon discharge, okay to discharge from neurology standpoint. Patient is being discharged with following instructions at the point of discharge: Follow-up with your primary care physician within a week time and likely you will need labs CBC/CMP/magnesium/phosphorus. Neurology evaluated you for concern of abnormal brain imaging finding as an outpatient and for concern of strokelike symptoms. Baby aspirin and low-dose statin has been added to your medication regimen. Follow-up on your liver function test at your PCP office in next 1 to 2 weeks time given history of your liver disease and need for statin. Continue to follow-up with your PCP office for ongoing monitoring/management with statin. Follow-up with your neurology in 1 to 2 weeks time upon discharge. Follow-up with your thyroid function test in about 6 weeks time upon discharge, coordinate with your PCP office to set up the test. Recommend smoking cessation/tobacco use. Take your medications as prescribed. Please make sure that you are able to get your medications today by calling your pharmacy before you leave the hospital so that your treatment continuity is not broken. Home Health Attestation I certify that this patient is under my care and that I, or a physicians aquatics assistant department head working with me, had a face to-face encounter that meets the home health [id number] encounter requirements with this patient. The encounter with the patient was in whole, or in part, for the following medical condition, which is the primary reason for home health care (list medical condition): I certify that, based on my findings, the following services are medically necessary home health services: My clinical findings support the need for the above services because: Further, I certify that my clinical findings support that this patient is homebound (i.e. absences from home require considerable and taxing effort and are for medical reasons or denominational services or infrequently or of short duration when for other reasons) because: Certification for Home Health Services: Based on the above findings, I certify that this patient is confined to the home and needs intermittent mcc care, physical therapy and/or speech therapy or continues to need occupational therapy. The patient is under my care, and I have initiated the establishment of the plan of care. This patient will be followed by a physician who will periodically review the plan of care. 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 Neurology evaluated you for concern of abnormal brain imaging finding as an outpatient and for concern of strokelike symptoms. Baby aspirin and low-dose statin has been added to your medication regimen. Follow-up on your liver function test at your PCP office in next 1 to 2 weeks time given history of your liver disease and need for statin. Continue to follow-up with your PCP office for ongoing monitoring/management with statin. Follow-up with your neurology in 1 to 2 weeks time upon discharge. Follow-up with your thyroid function test in about 6 weeks time upon discharge, coordinate with your PCP office to set up the test. Recommend smoking cessation/tobacco use. Take your medications as prescribed. Please make sure that you are able to get your medications today by calling your pharmacy before you leave the hospital so that your treatment continuity is not broken. Pending Studies at Discharge: No Stand-Alone Forms: My [facility] Mind[employer], Smoking Cessation, Medications to Prevent Stroke Medications and DC Order Prescriptions: New atorvastatin 20 mg Tablet 20 mg PO HS Qty: 30 0RF aspirin 81 mg Tablet,Delayed Release (Dr/Ec) 81 mg PO DAILY Qty: 30 0RF Continued buprenorphine HCl 8 mg tablet, sublingual 8 mg SUBLINGUAL QID ondansetron HCl 8 mg tablet 8 mg PO BID PRN (Reason: Nausea) mirtazapine 30 mg tablet 30 mg PO HS epinephrine 0.3 mg/0.3 mL auto-injector 0.3 mg IM UD PRN (Reason: Allergic Reaction) cyanocobalamin (vitamin B-12) 1,000 mcg/mL Solution 1,000 mcg IM .EVERY 4 WEEKS lactulose 10 gram/15 mL Solution 45 ml PO TID PRN (Reason: BOWEL MOVEMENT) Rx Instructions: Takes according to how well her bowels are moving. Usually only takes once a day. albuterol sulfate [ProAir HFA] 90 mcg/actuation Hfa Aerosol Inhaler 2 puff INHALATION Q4 PRN (Reason: Shortness Of Breath Or Wheezing) calcium citrate 250 mg calcium Tablet 500 mg PO BID Probiotic 3 billion cell Capsule 3 mmu cells PO DAILY Rx Instructions: administer with a meal sennosides [senna] 8.6 mg Tablet 8.6 mg PO BID pantoprazole 40 mg Tablet,Delayed Release (Dr/Ec) 40 mg PO BID Qty: 60 0RF methocarbamol 750 mg tablet 750 mg PO TID PRN (Reason: MUSCLE SPASMS) levothyroxine [Synthroid] 112 mcg tablet 112 mcg PO QAM Rx Instructions: BRAND NAME ONLY cholecalciferol (vitamin D3) 25 mcg (1,000 unit) tablet 3,000 unit PO QAM Eliquis 2.5 mg tablet 2.5 mg PO BID furosemide [Lasix] 40 mg tablet 40 mg PO QAM PRN (Reason: Fluid Retention) Discharge Orders: Discharge Order (Routine); Ordered 06/30/24 Ordered By: Eleuterio Gaston/Other Patient Handouts: A1C Admission Data Admit Date/Time: 06/29/24 21:24 Attending Provider: Eleuterio Mckenna Admit Provider: Marvin Doan Primary Care Provider: Ishaan Pepe Other Providers: Marvin Doan; Violette Aldrich; Liban Dempsey; Violette Marshall; Bret Guerin; Se Gómez; Dallas Palma; Gildardo Paz; Deborah Suarez; [place]; Ervin Oquendo; Teja Ricketts; Moe Chacon; Halle Hernandes; Lisa Arango; Gildardo Grimes; Arlin Arcos
[2024-06-30 15:25] VITALS: BP 129/76; PULSE 75
[2024-06-30] MEDS ORDERED: ATORVASTATIN 20 MG TAB PO SCH (21:00)
--- OUTSIDE RECORDS SUMMARY | 2024-07-01 03:51 | External Medical Summary | Summary of Care ---
Author Name Unknown Organization [facility] Address [address] [place] [address] Phone [phone] Care Team Providers Care General Repair Mechanic Name Role Phone Ishaan Pepe MD Primary Care Provider + Reason for Visit * Reason Onset Date Comments FYI 06/29/2024 Encounter Details Date Type Department Care Team ([facility] st Contact Info) Description 06/29/2024 Telephone Neurology [facility] Thu [place] [address] [facility] [place] [address] Violette Marshall MD [address] [place] [address] FYI Allergies Active Allergy Reactions Criticality Noted Date [...] 03/08/20 24 Active Vitamin A 3 MG (15149 UT) Oral Capsule (Aquasol-A) Take 1 Capsule [...] 1,000 mcgIndications:Vitamin B12 deficiency 1000 mcg IM [id number] 06/29/2024 05/31/2025 Active documented as of this [...] dependence, uncomplicated 04/27/2020 Overview (07/30/2022): [facility] [...] exam 08/08/2020 12/06/2021 Overview (10/22/2021): 10/18 [facility] stress echo normal EF, no [...] (Oral) 973,05/25/1968,04/20/1968,02/25 Pneumococcal Conjugate Vacci ne, 20-valent ([id number]) 12/06/2021 Pneumococcal Polysaccharide PPV23 (Pneumovax) 02/15/2009 Rubella [...] encounter Miscellaneous Notes * Telephone Encounter - Kathryn Hutchison OSA - 06/29/2024 4:38 PM EDT Pt dropped off disc for provider Pt has and apt with her on 08/04/24 Disc placed in neuro mailbox documented in this encounter Plan of Treatment Upcoming Encounters Date Type Department Care Team (Late st Contact Info) Description 07/08/2024 3:00 PM EDT Imaging [facility], [facility] [address] [place] [phone] 07/19/2024 9:00 AM EDT Office Visit [facility] [address] [address] Wilfred Reddy MD [address] [place] [address] Carmen Bridges [address] [place] [address] Photographer Yuliana Wadsworth [address] [place] [id number] 07/26/2024 2:30 PM EDT Office Visit Gastroenterology, [facility] [address] [place] [phone] Kishore Regalado CRNP [address] [place] [address] 08/04/2024 3:40 PM EDT Office Visit Neurology [facility] [address] [facility] [place] [address] Violette Marshall MD [address] [facility] [place] [address] 09/06/2024 3:30 PM EDT Office Visit Pulmonary Medicine, [facility] [address] [place] [phone] Iker Toney MD [address] [facility] [place] [address] 09/27/2024 2:00 PM EDT Office Visit General Internal Medicine [facility] [address] [facility] [place] [address] Ishaan Pepe MD [address] [facility] [place], [place] [address] 10/25/2024 2:40 PM EDT Office Visit Hepatology, [address] [phone] Kathryn Crespo DO [address] [place] [address] 12/15/2024 4:15 PM EDT Imaging Radiology [address] [place] [phone] 06/28/2025 2:30 PM EDT Office Visit Rheumatology, [address] [address] Omega Galvin, PAKalpesh [address] [place] [address] [place], [place] [address] Scheduled Procedures Name Priority Associated Diagnoses Date/Ti me COLONOSCOPY FLEXIBLE PROXIMA L DIAGNOSTIC Recall History of colonic polyps Health Maintenance Due Date Last Done Comments Cologuard 12/24/2012 Sigmoidoscopy 12/24/2012 *ADVANCE DIRECTIVE NOT ON FILE 03/12/2019 Diabetic Foot Exam 11/15/2020 11/16/2019, 0 09/21/2018, 08/06/2017, Additional history exists DISCUSS TOBACCO CESSATION (REFER TO SMARTSET #2442) 06/25/2023 06/24/2022, 05/27/2022, 05/19/2022, Additional history exists Fecal Occult Blood Test 11/20/2023 11/20/19, 11/19/2022, 11/19/2022 COVID-19 Vaccine ( season) 2023 Depression Monitoring 03/10/2024 03/10/2023 DXA Scan 06/03/2024 06/03/2022, 06/03/2022 TSH 08/31/2024 09/01/2023, 05/29, 05/04/2023, Additional history exists HbA1c 09/08/2024 03/10/2024, 06/0 06/2023, 05/26/2022, Additional history exists Lung Cancer Screening 09/10/2024 09/11/2023 , 06/15/2022, 04/15/2022, Additional history exists Albumin/Creatinine Ratio 10/06/2024 024, [...] Discontinued 11/24/2022, 11/24/2022, 06/30/2018, Additional history exists Influenza Vaccine (FLU shot) Completed 03/18/2024, 02/11/2023, 01/03/2022, Additional history exists VITAMIN D LEVEL ONCE IN A LIFETIME-USE SMARTSET# 15704 Completed 06/21/2024, 06/22/2023, 02/11/2023, Additional history exists [...] this encounter Medical Devices Implanted Type Area Director Of Philanthropy Device Identifier Shelf Expiration Date Model / Serial / Lot Neurostimulat or-Battery LiveWire TaxlaWriteReader ApS Elite [id number] Implanted:Qty : 1 on 06/20/2016 by Kirti Devine MD at OR [facility] Neurostimulator Left: Buttocks [employer] 05/27/2018 [id number] / [id number] / Description:[email or web address] JLS 06/24/2024 PLEASE REVIEW PAGE 12 FOR ADDITIONAL [...] 06/20/2016 by Kirti Devine MD at OR [facility] N/A: Spine Lumbar [employer] 11/21/2017 [id number] / [id number] / Octrode, Lead Kit,60 Cm Implanted:Qty : 1 on 06/20/2016 by Kirti Devine MD at OR [facility] N/A: Spine Lumbar [employer] 05/02/2018 [id number] / [id number] / Dike [id number] - [id number] Implanted:Qty : 2 on 06/20/2016 by Kirti Devine MD at OR [facility] Left: Buttocks [employer] 06/27/2017 [id number] / / [id number] documented as of this encounter Advance Directives [...] Agents on File Name Relationship Healthcare Agent [facility] Spouse Health Care Repr esentative (appointed verbally by patient or by statute hierarchy) Care Teams General Repair Mechanic Relationship Specialty Start Date End Date Ishaan Pepe MD [address] [place] [address] PCP - General Internal Medicine 07/18/21 documented as of this encounter
== END 2024-06-30 15:55 | disposition home or self-care (01) ==
LOC: 2N 17:35 → ED 17:35 → 2N 06-30 00:30